=== PATIENT | female | born 1970 | race Caucasian/White ===

== ENCOUNTER 2022-11-10 09:14 | Outpatient (OUT) | payer BC, SELFPAY ==
--- NOTE | 2022-11-10 09:21 | MM_ITS ---
Patient: THERESA JOSHUA Exam Date: 11/10/2022 : 1970 Gender:F Ordering : DR Rod Dee . Admission #: [id number] Family : DR GONSALES MONICA . Order #: [id number] CLICK HERE TO VIEW EXAM RADIOLOGY REPORT PROCEDURE: MM TOMOSYNTHESIS SCREENING BI COMPARISON: MG MAMM SCREEN 3D HIEU CAD, 10/26/2020. MG MAMM SCREEN 3D HIEU CAD, 10/28/2021. INDICATIONS: Screening Calculator Name NCI Breast Cancer Risk Assessment Tool 5 Year Breast Cancer Risk 1.20% Lifetime Breast Cancer Risk 9.60% Personal Breast Cancer No Personal Ovarian Cancer No Treatments None Family Cancers Cousin-maternal with breast cancer at age 50; Grandmother-maternal with ovarian cancer at age ~80. LOCATION: [facility] BREAST COMPOSITION: Scattered areas fibroglandular density. FINDINGS: DIAGNOSTIC CATEGORY 2--BENIGN FINDING. NO CHANGE FROM COMPARISON. Scattered benign-appearing calcifications are present. Scattered benign-appearing lymph nodes are present. RIGHT BREAST: No significant suspicious finding. reniform nodule upper outer quadrant, posterior breast, intramammary lymph node is favored, stable LEFT BREAST: No significant suspicious finding. RECOMMENDATIONS: ROUTINE MAMMOGRAM AND CLINICAL EVALUATION IN 12 MONTHS. PLEASE NOTE: A NORMAL MAMMOGRAM DOES NOT EXCLUDE THE POSSIBILITY OF BREAST CANCER. A CLINICALLY SUSPICIOUS PALPABLE LUMP SHOULD BE BIOPSIED. Dictated by: Chris Reddy MD on 11/10/2022 at 10:48 Approved by: Chris Reddy MD on 11/10/2022 at 10:50
[2022-11-11 08:21] LABS: Basophils Percent Auto 0.6 % (0.2-2.0); Eosinophils Absolute Auto 0.2 10^3/uL (0.0-0.7); Eosinophils Percent Auto 4.9 % (0.9-7.0); Hematocrit 44.2 % (36.0-48.0); Hemoglobin 14.6 g/dL (12.0-16.0); Immature Granulocytes Abs Auto 0.01 10^3/uL (0.00-0.03); Immature Granulocytes Pct Auto 0.2 % (0.0-0.5); Lymphocytes Absolute Auto 1.7 10^3/uL (1.2-3.8); Lymphocytes Percent Auto 34.8 % (20.5-60.0); Mean Corpuscular Hemoglobin 29.3 pg (26.7-34.0); Mean Corpuscular Volume 88.6 fL (81.0-99.0); Mean Platelet Volume 9.8 fL (9.5-13.5); Monocytes Absolute Auto 0.4 10^3/uL (0.3-0.8); Monocytes Percent Auto 8.4 % (1.7-12.0); Neutrophils Absolute Auto 2.5 10^3/uL (1.4-6.5); Neutrophils Percent Auto 51.1 % (43.0-75.0); Platelet Count 274 10^3/uL (150-450); Red Blood Count 4.99 10^6/uL (4.20-5.40); Red Cell Distribution Width 12.9 % (11.0-15.0); White Blood Count 4.9 10^3/uL (4.0-11.0)
[2022-11-11 08:34] LABS: Estimated Average Glucose 123 mg/dL; Glycohemoglobin A1C 5.9 % (4.5-6.2)
[2022-11-11 08:49] LABS: Alanine Aminotransferase 33 U/L (14-59); Albumin Globulin Ratio 1.1; Albumin Level 3.8 g/dL (3.4-5.0); Alkaline Phosphatase 64 U/L (46-116); Anion Gap 12.6; Aspartate Amino Transferase 18 U/L (15-37); BUN Creatinine Ratio 15.9; Bilirubin Total 0.5 mg/dL (0.2-1.0); Chloride 102 mmol/L (98-107); Chol HDL Ratio 5.5; Cholesterol 248 mg/dL (<=200); Estimated GFR (African America >60 (>=60); Estimated GFR (Non-African Ame >60 (>=60); Globulin 3.5 g/dL; Glucose 121 mg/dL (74-106); HDL Cholesterol 45 mg/dL (40-60); Potassium 3.6 mmol/L (3.5-5.1); Sodium 141 mmol/L (136-145); Thyroid Stimulating Hormone 1.225 uIU/mL (0.358-3.740); Total Protein 7.3 g/dL (6.4-8.2); Triglycerides 314 mg/dL (<=150); VLDL CHOLESTEROL 62.8 mg/dL
== END 2022-11-10 09:15 | disposition home or self-care (01) ==
LOC: MAMMO 09:15
PROVIDERS: PCP Family Medicine; Visit Provider Family Medicine
DX: Z00.00 Encounter for general adult medical examination without abnormal findings (principal); Z12.31 Encounter for screening mammogram for malignant neoplasm of breast; Z80.3 Family history of malignant neoplasm of breast; Z80.41 Family history of malignant neoplasm of ovary
CPT/HCPCS: 36415; 77063; 77067; 80053; 80061; 83036; 84443; 85025

== ENCOUNTER 2022-12-23 19:42 | Outpatient (REF) | payer BC, SELFPAY ==
[2022-12-27 10:13] LABS: Age Gdln ACOG Testing Note (.); HPV Aptima Negative (Negative); IGP, Aptima HPV, rfx 16/18,45 Note (.)
== END 2022-12-23 19:43 | disposition home or self-care (01) ==
LOC: LAB 19:42
PROVIDERS: PCP Family Medicine; Visit Provider Obstetrics & Gynecology
DX: Z01.419 Encounter for gynecological examination (general) (routine) without abnormal findings (principal)
CPT/HCPCS: 87624; G0145

== ENCOUNTER 2023-03-11 13:07 | Emergency (ER) | payer BC, SELFPAY ==
[2023-03-11 13:11] VITALS: BP 158/104; PULSE 95; RESP 20; TEMP 36.6; O2SAT 96; BMI 29.8
--- NOTE | 2023-03-11 13:27 | ED.NECK1 ---
HPI - Neck Pain/Injury General Chief Complaint: Neck Pain/Injury Stated Complaint: NECK PAIN Time Seen by Provider: 03/11/23 13:15 Source: patient Mode of arrival: walk-in Limitations: no limitations History of Present Illness HPI Narrative: Patient is a 52-year-old female with a history of chronic neck pain who presents to the emergency department for pain in the left side of the neck radiating into the left shoulder for the last several days. She has a history of degenerative disc disease and arthritis in the neck. She states she has had similar exacerbations in the past and been seen by her PCP who placed her on a steroid. She states she is not able to see him in the office until 1045 tomorrow. She states the pain is causing her to be tearful and is unrelieved at home. She denies any mechanism of injury or trauma. She states she gets occasional tingling to the left arm. Pain is worse with movement of the head to the left Related Data Previous Rx's Medication Instructions Recorded ketorolac 10 mg tablet 10 mg PO TID PRN pain #10 tabs 03/11/23 methocarbamol 750 mg tablet 750 mg PO TID PRN pain #20 tabs 03/11/23 methylprednisolone 4 mg tablets in See Rx Instructions .Route 03/11/23 a dose pack (Medrol (Benedict)) .COMPLEX #21 ea Allergies Allergy/AdvReac Type Severity Reaction Status Date / Time No Known Drug Allergies Allergy Verified 03/11/23 13:16 Review of Systems ROS Constitutional Denies: fever or chills Ears, nose, mouth, and throat Denies: throat pain Cardiovascular Denies: chest pain Respiratory Denies: shortness of breath Gastrointestinal Denies: nausea or vomiting Musculoskeletal Reports: neck pain; Denies: back pain, extremity pain or joint pain Integumentary/Breast Denies: rash Neurological Reports: headache PFSH PFSH Social History Smoking status: Never smoker Exam Narrative Exam Narrative: Gen.: Awake, alert, in no distress Head: Normocephalic, atraumatic ENT: Moist mucous membranes, no posterior bony point tenderness of the cervical spine with diffuse tenderness of the paraspinal muscles of the cervical spine and left trapezius muscle Respiratory: No respiratory distress Extremities: Moves extremities equally, 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 with normal flexion and extension of the left arm Psych: Normal mood and affect Neuro: No focal neuro deficit Skin: Warm, dry, intact Constitutional Vital Signs, click to edit/add: Last Vital Signs Temp 98 F 03/11/23 13:11 Pulse 95 H 03/11/23 13:11 Resp 20 03/11/23 13:11 BP 158/104 H 03/11/23 13:11 Pulse Ox 96 03/11/23 13:11 O2 Del Method Room Air 03/11/23 13:11 Course Vital Signs Vital signs: Vital Signs Temperature 98 F 03/11/23 13:11 Pulse Rate 95 H 03/11/23 13:11 Respiratory Rate 20 03/11/23 13:11 Blood Pressure 158/104 H 03/11/23 13:11 Pulse Oximetry 96 03/11/23 13:11 Oxygen Delivery Method Room Air 03/11/23 13:11 Temperature 98 F 03/11/23 13:11 Pulse Rate 95 H 03/11/23 13:11 Respiratory Rate 20 03/11/23 13:11 Blood Pressure 158/104 H 03/11/23 13:11 Pulse Oximetry 96 03/11/23 13:11 Oxygen Delivery Method Room Air 03/11/23 13:11 MDM - Neck Pain/Injury MDM Narrative Medical decision making narrative: Exam is consistent with cervical strain, acute on chronic neck pain. She has no focal neurodeficits on exam, patient treated for symptoms in the ER and will be discharged home with a steroid taper, NSAIDs and muscle relaxants. Follow-up with PCP and return to the emergency department if symptoms change or worsen. Rest, ice, gentle stretching. Medical Records Attestation: I reviewed the patient's medical records. Discharge Plan Discharge Chief Complaint: Neck Pain/Injury Clinical Impression: Cervical muscle strain Patient Disposition: Home, Self-Care Time of Disposition Decision: 13:25 Condition: Good Prescriptions / Home Meds: New ketorolac 10 mg tablet 10 mg PO TID PRN (Reason: pain) Qty: 10 0RF methocarbamol 750 mg tablet 750 mg PO TID PRN (Reason: pain) Qty: 20 0RF methylprednisolone [Medrol (Benedict)] 4 mg tablets,dose pack See Rx Instructions .ROUTE .COMPLEX Qty: 21 0RF Rx Instructions: Taper as directed Instructions: Cervical Strain (ED), Neck Pain (ED) Stand Alone Forms: Portal Instructions Referrals: Rod Dee MD [Primary Care Provider] - 03/12/23
[2023-03-11] MEDS: ORPHENADRINE 60 MG/ 2 ML VIAL IM (13:32)
[2023-03-11] MEDS: HYDROCODONE/ACET 5-325 MG TABLET 1 TAB PO (13:33)
[2023-03-11] MEDS: KETOROLAC TROMETHAMINE 60 MG/2 ML VIAL IM (13:33)
== END 2023-03-11 13:39 | disposition home or self-care (01) ==
PROVIDERS: Emergency Provider Emergency Medicine; PCP Family Medicine
DX: S16.1XXA Strain of muscle, fascia and tendon at neck level, initial encounter (principal); X58.XXXA Exposure to other specified factors, initial encounter; M50.30 Other cervical disc degeneration, unspecified cervical region; M47.812 Spondylosis without myelopathy or radiculopathy, cervical region; G89.29 Other chronic pain
CPT/HCPCS: 96372; 99284

== ENCOUNTER 2023-03-12 11:38 | Observation (INO) | payer BC, SELFPAY ==
[2023-03-12] VITALS (8 sets, daily range): BP systolic 147–159; BP diastolic 86–93; PULSE 86–91; RESP 16–18; TEMP 36.7–36.9; O2SAT 91–99; BMI 33.5
--- OUTSIDE RECORDS SUMMARY | 2023-03-12 11:50 | XMS_ITS | CCD ---
Author Name Unknown Address [address] [place] [address] Organization [facility] Care Team Providers Care Tobacco Packer Name Role Phone Gabby Dee Primary Care Physician Morris CAGLE Attending Unavailable JEFF, Morris Valles Attending Unavailable Diamond Case Unavailable MD Diamond Case Attending Provider Diamond Case Admitting Unavailable Diamond Case Attending Unavailable SYLWIA ., DR PIERRE Primary Care Unavailable HOY ., DR PIERRE Consulting Unavailable MISC, DR BATISTA Attending Unavailable MISC, DR BATISTA Admitting Unavailable NILL ., DR ARECHIGA Admitting Unavailable NILL ., DR ARECHIGA Consulting Unavailable HOY ., DR PIERRE Primary Care Unavailable NILL ., DR ARECHIGA Attending Unavailable TOMASA LANDAVERDE Consulting Unavailable CHRISTINA II, SASHA Consulting Unavailable HOY ., DR PIERRE Attending Unavailable HOY ., DR PIERRE Primary Care Unavailable HOY ., DR PIERRE Admitting Unavailable HOY ., DR PIERRE Attending Unavailable HOY ., DR PIERRE Primary Care Unavailable HOY ., DR PIERRE Admitting Unavailable HOY ., DR PIERRE Consulting Unavailable ZIEBER, DR KAN Valles Consulting Unavailable LEEANNE BRADLEY Consulting Unavailable LEEANNE BRADLEY Attending Unavailable SYLWIA ., DR PIERRE Primary Care Unavailable LEEANNE BRADLEY Admitting Unavailable KIRKLEEANNE RIGGINS Admitting Unavailable KIRKLEEANNE RIGGINS Consulting Unavailable LEEANNE BRADLEY Attending Unavailable MONICA ., DR GONSALES Primary Care Unavailable HOY ., DR PIERRE Attending Unavailable HOY ., DR PIERRE Primary Care Unavailable HOY ., DR PIERRE Consulting Unavailable HOY ., DR PIERRE Admitting Unavailable CALDWELL, DR AL Shaikh Consulting Unavailable HOY ., DR PIERRE Attending Unavailable HOY ., DR PIERRE Primary Care Unavailable HOY ., DR PIERRE Consulting Unavailable HOY ., DR PIERRE Admitting Unavailable HOY ., DR PIERRE Attending Unavailable HOY ., DR PIERRE Admitting Unavailable HOY ., DR PIERRE Primary Care Unavailable HOY ., DR PIERRE Consulting Unavailable HOY ., DR PIERRE Attending Unavailable HOY ., DR PIERRE Admitting Unavailable HOY ., DR PIERRE Primary Care Unavailable HOY ., DR PIERRE Consulting Unavailable CALDWELL, DR AL Shaikh Consulting Unavailable HOY ., DR PIERRE Admitting Unavailable HOY ., DR PIERRE Attending Unavailable HOY ., DR PIERRE Primary Care Unavailable Allergies Allergy Classification Reported Allergen(s) Allergy Type Date of Onset Reaction(s) Facility (1 source) No Known Medication Allergies; Translations: [No Known Medication Allergies] Propensity to adverse reactions (disorder) [facility] Repository (2 sources) Baclofen Drug Allergy [facility] Repository Medications Current Medications Medication Drug Class(es) Dates Sig (Normalized) Sig (Original) 24 hr desvenlafaxine succinate 25 mg extended release oral tablet (1 source) Serotonin and Norepinephrine Reuptake Inhibitor Start: 02-21-2021 take 1 tablet by mouth once daily desvenlafaxine 25 mg oral tablet, extended release 25 mg = 1 tab(s), Oral, Daily, Refills(s) 0 Start Date: 02/21/21 Status: Ordered diclofenac sodium 75 mg delayed release oral tablet (6 sources) Nonsteroidal Anti-inflammatory Drug take 1 tablet by mouth every twelve hours Diclofenac Sodium 75 MG 1 tablet as needed Orally Twice a day Active simvastatin 20 mg oral tablet (7 sources) HMG-CoA Reductase Inhibitor Start: 04-08-2022 take 1 tablet by mouth once daily at bedtime simvastatin 20 mg Tab 20 mg = 1 tab(s), Oral, Once a day (at bedtime), Refills(s) 0 Start Date: 04/08/22 Status: Ordered Completed/Discontinued Medications Medication Drug Class(es) Dates Sig (Normalized) Sig (Original) triamcinolone acetonide 40 mg/ml injectable suspension (20 sources) Corticosteroid Start: 05-06-2022 Kenalog-40 20 Dec, 2022 20 mg Problems Active Problems Problem Classification Problem Date Documented Da te Episodic/Chronic Anal and rectal conditions (1 source) Rectal polyp; Translations: [RECTAL POLYP] Onset: 05-26-2022 Episodic Anxiety disorders (1 source) Anxiety 02-21-2021 Chronic Disorders of lipid metabolism (2 sources) Pure hypercholesterolemia; Translations: [Pure hypercholesterolemia, unspecified] Onset: 05-26-2022 02-21-2021 Chronic Diverticulosis and diverticulitis (1 source) Diverticulosis of large intestine without perforation or abscess without bleeding; Translations: [DVRTCLOS LG INT NO PERF/ABSC W/O BL] Onset: 05-26-2022 Chronic Gastrointestinal hemorrhage (2 sources) Hematochezia; Translations: [Rectal hemorrhage] 02-26-2021 Episodic Headache; including migraine (1 source) Tension-type headache 02-21-2021 Chronic Osteoarthritis (20 sources) Arthritis of first carpometacarpal joint of right hand; Translations: [Unilateral primary osteoarthritis of first carpometacarpal joint, right hand] Onset: 05-14-2022 Chronic Other and unspecified benign neoplasm (1 source) Benign neoplasm of colon; Translations: [Benign neoplasm of colon, unspecified] Onset: 04-08-2022 Episodic Other and unspecified benign neoplasm (1 source) Adenomatous polyp of colon 04-10-2021 Episodic Other and unspecified benign neoplasm (4 sources) Personal history of colonic polyps; Translations: [PERSONAL HISTORY OF COLONIC POLYPS] Onset: 05-07-2022 Episodic Other connective tissue disease (6 sources) Trigger finger, right middle finger Episodic Other connective tissue disease (4 sources) Pain in right hand Episodic Other connective tissue disease (4 sources) Pain in right foot; Translations: [PAIN IN RIGHT FOOT] Onset: 05-16-2022 Episodic Other connective tissue disease (5 sources) Pain in left hand Episodic Other connective tissue disease (1 source) Lateral epicondylitis, right elbow Episodic Other nutritional; endocrine; and metabolic disorders (1 source) Body mass index 30+ - obesity 04-08-2022 Chronic Other upper respiratory disease (1 source) Seasonal allergic rhinitis 02-21-2021 Chronic Spondylosis; intervertebral disc disorders; other back problems (1 source) Lumbar radiculopathy 02-21-2021 Episodic Unclassified (1 source) Pain in left hand; Translations: [Pain in left hand] Onset: 06-03-2022 Unclassified (4 sources) CONTACT W/AND (SUSP) EXPOS COVID-19; Translations: [CONTACT W/AND (SUSP) EXPOS COVID-19] Onset: 10-17-2021 Viral infection (1 source) COVID-19; Translations: [COVID-19] Onset: 10-08-2021 Past or Other Problems Problem Classification Problem Date Documented Date Episodic/Chronic Acute bronchitis (4 sources) Acute bronchiolitis, unspecified; Translations: [ACUTE BRONCHIOLITIS UNSPECIFIED] Onset: 02-26-2022 Episodic Other connective tissue disease (5 sources) Impingement syndrome of left shoulder; Translations: [IMPINGEMENT SYNDROME LEFT SHOULDER] Onset: 12-07-2021 Episodic Other connective tissue disease (1 source) Abnormal posture; Translations: [ABNORMAL POSTURE] Onset: 01-02-2022 Episodic Other non-traumatic joint disorders (4 sources) Pain in left shoulder; Translations: [PAIN IN LEFT SHOULDER] Onset: 01-01-2022 Episodic Other screening for suspected conditions (not mental disorders or infectious disease) (5 sources) Stool DNA-based colorectal cancer screening positive; Translations: [Encounter for screening mammogram for malignant neoplasm of breast] Onset: 10-28-2021 02-21-2021 Episodic Residual codes; unclassified (1 source) Family history of malignant neoplasm of breast; Translations: [FAMILY HX MALIG NEOPLASM OF BREAST] Onset: 10-29-2021 Episodic Residual codes; unclassified (1 source) Family history of malignant neoplasm of ovary; Translations: [FAM HX MALIGNANT NEOPLASM OVARY] Onset: 10-29-2021 Episodic Sprains and strains (1 source) Strain of muscle, fascia and tendon at neck level, initial encounter; Translations: [STRN MUSC FASC TENDON NECK LEVL INT] Onset: 12-11-2021 Episodic Unclassified (1 source) CONTACT W/AND (SUSP) EXPOS COVID-19; Translations: [CONTACT W/AND (SUSP) EXPOS COVID-19] Onset: 10-12-2021 Results Test Name Value Interpretation Reference Range Facility XR hand LT min 3V*on 023 XR hand LT min 3V* [facility] Main [address] [address] XRay Report Signed Patient: Theresa Reyes MR#: [id number] : 1970 Acct:[id number] Age/Sex: 52 / F ADM Date: 06/03/22 Loc: [facility] [place] Room: Type: [facility] Attending Dr: Diamond Case MD Copies to: Diamond Case MD Ordering Provider: Diamond Case MD Date of Service: 06/03/22 XR/XR hand LT min 3V*: PAIN XR hand LT min 3V* 06/03/2022 8:44 AM SIGNS AND SYMPTOMS: Left thumb/first metacarpal pain PROTOCOL: Frontal, lateral, and oblique radiographs of the left hand: COMPARISON: None FINDINGS: The bones are in anatomic alignment. There is mild degenerative change at the first carpometacarpal junction. There is preservation of the joint spaces, otherwise. There is no fracture or dislocation. No significant soft tissue swelling. XR/XR hand LT min 3V* IMPRESSION: No acute bony injury. Mild degenerative facet noted at the base of the thumb. Impression dictated by: Miguel Ramey M.D.06/03/2022 1:11 PM Dictation Location: [place] [address] Transcribed By: [facility] 06/03/22 1311 Dictated By: Miguel Ramey II, MD 06/03/22 1310 Signed By: 06/03/22 1311 Normal [facility] XR hand LT min 3V* [facility] [employer] Other XR hand LT min 3V* [facility] [employer] Other XR hand LT min 3V* [address] [place] [address] [employer] Other XR hand LT min 3V* [place] [address] [facility] [employer] Other XR hand LT min 3V* XRay Report [employer] Other XR hand LT min 3V* Signed [employer] Other XR hand LT min 3V* Patient: Theresa Reyes MR#: [id number] [employer] Other XR hand LT min 3V* [id number] [employer] Other XR hand LT min 3V* : 1970 Acct:[id number] [employer] Other XR hand LT min 3V* Age/Sex: 52 / F ADM Date: 06/03/22 [employer] Other XR hand LT min 3V* Loc: [facility] Room: Type : [facility] [employer] Other XR hand LT min 3V* Attending Dr: Benny Case MD [employer] Other XR hand LT min 3V* Copies to: Diamond Case MD [employer] Other XR hand LT min 3V* Ordering Provider: Diamond Case MD [employer] Other XR hand LT min 3V* Date of Service: 06/03/22 [employer] Other XR hand LT min 3V* XR/XR hand LT min 3V*: PAIN [employer] Other XR hand LT min 3V* XR hand LT min 3V* 06/03/2022 8:44 AM [employer] Other XR hand LT min 3V* SIGNS AND SYMPTOMS: Left thumb/first metacarpal pain [employer] Other XR hand LT min 3V* PROTOCOL: Frontal, lateral, and oblique radiographs of the left hand: [employer] Other XR hand LT min 3V* COMPARISON: None [employer] Other XR hand LT min 3V* FINDINGS: [employer] Other XR hand LT min 3V* The bones are in anatomic alignment. There is mild degenerative change at the first carpometacarpal [employer] Other XR hand LT min 3V* junction. There is preservation of the joint spaces, otherwise. There is no fracture or dislocation. [employer] Other XR hand LT min 3V* No significant soft tissue swelling. [employer] Other XR hand LT min 3V* XR/XR hand LT min 3V* [employer] Other XR hand LT min 3V* IMPRESSION: [employer] Other XR hand LT min 3V* No acute bony injury. [employer] Other XR hand LT min 3V* Mild degenerative fa cet noted at the base of the thumb. [employer] Other XR hand LT min 3V* Impression dictated by: Miguel Ramey M.D.06/03/2022 1:11 PM [employer] Other XR hand LT min 3V* Dictation Location: [place] [address] [employer] Other XR hand LT min 3V* Transcribed By: KARRIE 06/03/22 [facility] [employer] Other XR hand LT min 3V* Dictated By: Miguel Ramey II, MD 06/03/22 [facility] [employer] Other XR hand LT min 3V* Signed By: [employer] Other XR hand LT min 3V* 06/03/[address] [place] [address] [employer] Other [employer] 05-15-2022 Reminders - From: Jessica Mims LPN To: WILMARN - Clinical; Sent: 05/15/2022 07:57:39 EST Show up: 04/06/2025 07:00:00 EST Subject: colonoscopy recall Due Date/Time: 05/07/2025 07:00:00 EST Reminder/Recall Patient is due for colonoscopy 05/07/2025 due to history of tubulovillous adenoma. Normal [facility] Pathology Noteon 05-09-2022 Pathology Note [id number]#1.00CD :127 Normal [facility] Outside Colonoscopyon 2022 Outside Colonoscopy [id number]#1.00C D:127 Normal [facility] PREG HCG QUALon 05-07-2022 , QUAL Negative Normal NEGATIVE [facility] Comment on above: Performed By: #### P REG #### [facility] [address] [place] [address] Dr. Hu Can Pre-Certification Formon Pre-Certification Form [id number] CD:127 Normal [facility] Consent for Procedure/Surger yon 04-10-2022 Consent for Procedure/Surgery [id number] D:127 Normal [facility] Facesheeton 04-10-2022 Facesheet [id number] D:127 Normal [facility] General Surgery Office/Clini c Noteon 04-08-2022 General Surgery Office/Clinic Note Chief Complaint colonoscopy recall HPI Staff 51 year old female presents on consultation for colonoscopy recall. Last colonoscopy completed 03/2021 with tubulovillous adenoma of sigmoid colon. Denies abdominal or rectal pain. No rectal bleeding or change in bowel habits. Denies nausea or vomiting. No unexplained weight loss. History of Present Illness 51 yo female for surveillance colonoscopy, s/p colonoscopy 1 year ago due to positive Cologuard, found to have 2.5 cm tubulovillous adenoma in sigmoid colon; doing well, denies change in bms or blood in stools, no abd complaints; no previous abdominal operations; no asa or NSAID use, no SBE prophylaxis, no fmhx of GI maligancy or IBD. no tobacco use. Review of Systems PHQ Score Initial Depression Screen Score: 0 ROS - Provider Constitutional: no fever, no sweats, no weight loss. Eyes: no glasses, no blurred vision, no visual loss. ENMT: no dentures, no hoarseness, no swallowing difficulties, no hearing loss, no ear infection(s), no nose bleeds. Cardiovascular: normal blood pressure, no chest pain, regular heartbeat, no heart murmur. Respiratory: no shortness of breath, no cough, no asthma, no wheezing. Gastrointestinal: no nausea, no vomiting, no diarrhea, no constipation, no blood in stool, no change in bowel habits, no abdominal pain, no hepatitis. Genitourinary: no kidney stones, no urine infection, no dysuria. Musculoskeletal: no pain, no weakness. Skin: no changing moles, no rash, no skin lumps. Neurologic: no seizures, no epilepsy, no headache. Psychiatric: no emotional or psychiatric problem. Heme/Lymph: no bleeding problems, no anemia, no blood clots, no transfusions. Allergy/Immunologic: no swollen lymph nodes/glands, no IV drug abuse. Other: Additional ROS info: Except as noted in the above Review of Systems and in the History of Present Illness, all other systems have been reviewed and are negative or noncontributory. Physical Exam Vitals & Measurements HR: 72(Peripheral) RR: 16 BP: 128/88 HT: 67 in HT: 170.2 cm WT: 89 kg WT: 195.8 lb BMI: 30.72 HEENT: normal conjunctiva, sclera clear, no scleral icterus, EOM intact, PERRLA, oral mucosa moist without lesions. Neck: trachea midline, no mass, symmetric, no thyromegaly or nodules, no adenopathy Respiratory: lungs CTA, respirations non labored. Cardiovascular: regular rate and rhythm, no murmur, no pedal edema or varicosities. Gastrointestinal: soft, non distended, no tenderness, no masses, no palpable hernias, diastasis recti no, no hepatosplenomegaly; normal bs Lymphatic: no cervical adenopathy, no supraclavicular adenopathy Musculoskeletal: normal gait, digits and nails without infection, nodes, cyanosis, clubbing. Skin: no rashes, no lesions, no ulcers, no subcutaneous nodules, induration. Psychiatric/Neuro: oriented to time, place, person, judgement normal, affect appropriate for age, insight intact, no focal deficits. Tests: review of old records completed, Discussed surgical options, risks, and possible complications with patient. Assessment/Plan 1. Tubulovillous adenoma of colon (D12.6: Benign neoplasm of colon, unspecified) plan surveillance colonoscopy under anesthesia, informed consent obtained. Follow-up No qualifying data available Problem List/Past Medical History Ongoing Anxiety BMI 30.0-30.9,adult Hematochezia Lumbar radiculopathy Positive colorectal cancer screening using Cologuard test Pure hypercholesterolemia Rectal bleeding Seasonal allergic rhinitis Tension headache Tubulovillous adenoma of colon Historical No qualifying data Procedure/Surgical History Colonoscopy (03/27/2021), Blocked tear duct, Ganglion cyst of right foot, Plantar fasciotomy. Medications desvenlafaxine 25 mg oral tablet, extended release, 25 mg= 1 tab(s), Oral, Daily simvastatin 20 mg Tab, 20 mg= 1 tab(s), Oral, Once a day (at bedtime) Allergies No Known Allergies No Known Medication Allergies Social History Alcohol - Denies Alcohol Use, 02/26/2021 Substance Abuse - Denies Substance Abuse, 02/26/2021 Tobacco Never (less than 100 in lifetime) Tobacco Use:. Never Smokeless Tobacco Use:., 04/08/2022 Family History Hyperlipidemia: Mother and Father. Hypothyroidism: Mother and Brother. Immunizations Vaccine Date Status influenza virus vaccine, inactivated 12/2021 Recorded SARS-CoV-2 (COVID-19) Ad26 vaccine 04/30/2020 Recorded SARS-CoV-2 (COVID-19) Ad26 vaccine 04/02/2020 Recorded Normal [facility] Comment on above: Result Comment: Elec tronically Signed By: JEFF PONCE, Morris Nelson\Date and Time Signed: 04/08/22 15:33 EST Covid-19 PCR (CVDTB)on 02-13 SARS-CoV-2 (COVID-19) RNA CLARISSA+probe Ql (Unsp spec) Not detected Normal NOT DETECTED [facility] Comment on above: Result Comment: When diagnostic testing is negative, the possibility of a false negative should be considered in the context of a patient's recent exposures and the presence of clinical signs and symptoms consistent with SARS-CoV-2. This test is not yet approved or cleared by the [place] FDA. When there are no FDA-approved or cleared tests available, and other criteria are met, FDA can make tests available under an emergency access mechanism called an Emergency Use Authorization (EUA). The EUA for this test is supported by the [place] of Health and Human Service's declaration that circumstances exist to justify the emergency use of in vitro diagnostics for the detection and/or diagnosis of the virus that causes COVID-19. This EUA will remain in effect for the duration of the COVID-19 declaration justifying emergency of IVDs, unless it is terminated or revoked by the FDA (after which the test may no longer be used). Performed By: #### C VDTB #### [facility] [address] [place] [address] Dr. Hu Can INFLUENZA A AND B [facility] 02-26 [facility] SEE BELOW Normal [facility] Comment on above: Result Comment: Nega tive for Flu A protein angiten. Infection due to Flu A cannot be ruled out. Flu A angiten in the sample may be below the detection limit of the test. Performed By: #### I NFLUAB #### [facility] [address] [place] [address] Dr. [facility] Normal [facility] Comment on above: Result Comment: Nega tive for Flu B protein antigen. Infection due to Flu B cannot be ruled out. Flu B antigen in the sample may be below the detection limit of the test. Performed By: #### I NFLUAB #### [facility] [address] [place] [address] Dr. Hu Can INFLUENZA A AG Negative Normal NEGATIVE SEE COMMENT [facility] Comment on above: Performed By: #### I NFLUAB #### [facility] [address] [place] [address] Dr. Hu Can INFLUENZA B AG Negative Normal NEGATIVE SEE COMMENT [facility] Comment on above: Performed By: #### I NFLUAB #### [facility] [address] [place] [address] Dr. Hu Can INTERNAL CONTROLS Within Normal Limits Normal Wi thin Normal Limits [facility] Comment on above: Performed By: #### I NFLUAB #### [facility] [address] [place] [address] Dr. Hu Can CBC AUTO DIFFon 12-13-2021 BASO # 0.0 103/ul Normal 0.0-0.1 [facility] Comment on above: Performed By: #### C BC #### [facility] [address] [place] [address] Dr. Hu Can Basophils/100 WBC (Bld) 0.3 % Normal 0.2-2.0 [facility] Comment on above: Performed By: #### C BC #### [facility] [address] [place] [address] Dr. Hu Can EO # 0.1 103/ul Normal 0.0-0.7 [facility] Comment on above: Performed By: #### C BC #### [facility] [address] [place] [address] Dr. Hu Can Eosinophils/100 WBC (Bld) 1.1 % Normal 0.9-7.0 [facility] Comment on above: Performed By: #### C BC #### [facility] [address] [place] [address] Dr. Hu Can Erythrocyte distribution width (RBC) [Ratio] 13.7 % Normal 11.0-15.0 [facility] Comment on above: Performed By: #### C BC #### [facility] [address] [place] [address] Dr. Hu Can Hematocrit (Bld) [Volume fraction] 44.6 % Normal 36.0-48.0 [facility] Comment on above: Performed By: #### C BC #### [facility] [address] [place] [address] Dr. Hu Can Hemoglobin (Bld) [Mass/Vol] 14.5 g/dL Normal 12.0-16.0 [facility] Comment on above: Performed By: #### C BC #### [facility] [address] [place] [address] Dr. Hu Can IG # 0.02 10e3/ul Normal 0.00-0.03 [facility] Comment on above: Performed By: #### C BC #### [facility] [address] [place] [address] Dr. Hu Can IG % 0.3 % Normal 0.0-0.5 [facility] Comment on above: Performed By: #### C BC #### [facility] [address] [place] [address] Dr. Hu Can LYMPH # 2.3 103/ul Normal 1.2-3.8 [facility] Comment on above: Performed By: #### C BC #### [facility] [address] [place] [address] Dr. uH Can Lymphocytes/100 WBC (Bld) 30.5 % Normal 20.5-60.0 [facility] Comment on above: Performed By: #### C BC #### [facility] [address] [place] [address] Dr. Hu Can MANUAL DIFF REQ NO Normal [facility] Comment on above: Performed By: #### C BC #### [facility] [address] [place] [address] Dr. Hu Can MCH (RBC) [Entitic mass] 29.1 pg Normal 26.7-34.0 [facility] Comment on above: Performed By: #### C BC #### [facility] [address] [place] [address] Dr. Hu Can MCHC (RBC) [Mass/Vol] 32.5 g/dL Normal 29.9-35.2 [facility] Comment on above: Performed By: #### C BC #### [facility] [address] [place] [address] Dr. Hu Can MCV (RBC) [Entitic vol] 89.6 fL Normal 81.0-99.0 [facility] Comment on above: Performed By: #### C BC #### [facility] [address] [place] [address] Dr. Hu Can MONO # 0.5 103/ul Normal 0.3-0.8 [facility] [facility] Comment on above: Performed By: #### C BC #### [facility] [address] [place] [address] Dr. Hu Can Monocytes/100 WBC (Bld) 6.8 % Normal 1.7-12.0 [facility] Comment on above: Performed By: #### C BC #### [facility] [address] [address] [address] Hu Can NEUT # 4.6 103/ul Normal 1.4-6.5 [facility] Comment on above: Performed By: #### C BC #### [facility] [address] [address] [address] Hu Can Neutrophils/100 WBC (Bld) 61.0 % Normal 43.0-75.0 [facility] Comment on above: Performed By: #### C BC #### [facility] [address] [address] [address] Hu Can Platelet mean volume (Bld) [Entitic vol] 9.3 fL Critically low 9.5-13.5 [facility] Comment on above: Performed By: #### C BC #### [facility] [address] [place] [address] Dr. Hu Can PLT 296 103/ul Normal 150-450 [facility] Comment on above: Performed By: #### C BC #### [facility] [address] [address] [address] Hu Can RBC 4.98 106/ul Normal 4.20-5.40 [facility] Comment on above: Performed By: #### C BC #### [facility] [address] [place] [address] Dr. Hu Can WBC 7.5 103/ul Normal 4.0-11.0 [facility] Comment on above: Performed By: #### C BC #### [facility] [address] [place] [address] Dr. Hu Can GLYCOHEMOGLOBIN A1Con 2021 ADA RECOMMENDATION SEE BELOW Normal [facility] Comment on above: Result Comment: ADA RECOMMENDED LIMIT 4.0 - 6.0 ADA THERAPEUTIC TARGET < 7.0 ACTION SUGGESTED > 7.0 Performed By: #### A 1C #### [facility] [address] [place] [address] Dr. Hu Can Glucose [Mass/Vol] 114 mg/dL Normal [facility] Comment on above: Performed By: #### A 1C #### [facility] [address] [place], [place] [address] Dr. Hu Can HbA1c (Bld) [Mass fraction] 5.6 % Normal 4.5-6.2 [facility] Comment on above: Performed By: #### A 1C #### [facility] [address] [place], [place] [address] Dr. Hu Can LIPID PROFILEon 12-13-2021 CHOL-HDL RATIO NORM SEE BELOW Normal [facility] Comment on above: Result Comment: 3.3 - 4.4 LOW RISK 4.4 - 7.1 AVERAGE RISK 7.1 - 11.0 MODERATE RISK >11.0 HIGH RISK Performed By: #### T ABDI, CMP, LIPID ####[facility] [address] [id number]. Hu Can Cholesterol [Mass/Vol] 279 mg/dL Critically high <=200 [facility] Comment on above: Performed By: #### T ABDI, CMP, LIPID ####[facility] [address] [id number]. Hu Can Cholesterol in HDL [Mass/Vol] 50 mg/dL Normal 40-60 [facility] Comment on above: Performed By: #### T ABDI, CMP, LIPID ####[facility] [address] [place], [place] [address]Na. Hu Can Cholesterol in LDL [Mass/Vol] 197.8 mg/dL Normal [facility] Comment on above: Performed By: #### T ABDI, CMP, LIPID ####[facility] [address] [place], [place] [address]Xg. Hu Can Cholesterol.total/ Cholesterol in HDL [Mass ratio] 5.6 {ratio} Normal [facility] Comment on above: Performed By: #### T ABDI, CMP, LIPID ####[facility] [address] [place], [place] [address]Of. Hu Can HDL NORMAL > or = 60 mg/dl - LO W CARDIOVASCULAR RISK <40 mg/dl - HIGH CARDIOVASCULAR RISK Normal [facility] Comment on above: Performed By: #### T SH, CMP, LIPID ####[facility] [address] [address]Dr. Hu Can LDL CALC NORMAL SEE BELOW Normal [facility] Comment on above: Result Comment: <100 mg/dl OPTIMAL 100 - 129 mg/dl NEAR OR ABOVE OPTIMAL 130 - 159 mg/dl BORDERLINE HIGH 160 - 189 mg/dl HIGH >190 mg/dl VERY HIGH Performed By: #### T SH, CMP, LIPID ####[facility] [address] [address]Dr. Hu Can Triglyceride [Mass/Vol] 156 mg/dL Critically high <=150 [facility] Comment on above: Performed By: #### T ABDI, CMP, LIPID ####[facility] [address] [address]Dr. Hu Can VLDL CALC 31.2 mg/dL Normal [facility] Comment on above: Performed By: #### T ABDI, CMP, LIPID ####[facility] [address] [address]Dr. Hu Can PROF 14(COMP METB)on 022 Albumin [Mass/Vol] 3.8 g/dL Normal 3.4-5.0 [facility] Comment on above: Performed By: #### T ABDI, CMP, LIPID ####[facility] [address] [address]Dr. Hu Can Albumin/Globulin [Mass ratio] 1.2 {ratio} Normal [facility] Comment on above: Performed By: #### T SH, CMP, LIPID ####[facility] [address] [address]Dr. Hu Can ALP [Catalytic activity/Vol] 74 U/L Normal 46-116 [facility] Comment on above: Performed By: #### T SH, CMP, LIPID ####[facility] [address] [address]Dr. Hu Can ALT [Catalytic activity/Vol] 19 U/L Normal 14-59 [facility] Comment on above: Performed By: #### T SH, CMP, LIPID ####[facility] [address] [address]Dr. Hu Can Anion gap [Moles/Vol] 11.0 mmol/L Normal [facility] Comment on above: Performed By: #### T SH, CMP, LIPID ####[facility] [address] [address]Dr. Hu Can AST [Catalytic activity/Vol] 12 U/L Critically low 15-37 [facility] Comment on above: Performed By: #### T SH, CMP, LIPID ####[facility] [address] [address]Dr. Hu Can Bilirubin [Mass/Vol] 0.7 mg/dL Normal 0.2-1.0 [facility] Comment on above: Performed By: #### T SH, CMP, LIPID ####[facility] [address] [address]Dr. Hu Can Calcium [Mass/Vol] 8.7 mg/dL Normal 8.5-10.1 [facility] Comment on above: Performed By: #### T SH, CMP, LIPID ####[facility] [address] [address]Dr. Hu Can Chloride [Moles/Vol] 102 mmol/L Normal 98-107 [facility] Comment on above: Performed By: #### T SH, CMP, LIPID ####[facility] [address] [address]Dr. Hu Can CO2 [Moles/Vol] 28.2 mmol/L Normal 21.0-32.0 [facility] Comment on above: Performed By: #### T SH, CMP, LIPID ####[facility] [address] [address]Dr. Hu Can Creatinine [Mass/Vol] 0.91 mg/dL Normal 0.55-1.02 [facility] Comment on above: Performed By: #### T SH, CMP, LIPID ####[facility] [address] [address]Dr. Hu Can EGFR-AF SWISS >60 Normal >=60 [facility] Comment on above: Performed By: #### T SH, CMP, LIPID ####[facility] [address] [address]Dr. Ellikaila Can EGFR-NON AF SWISS >60 Normal >=60 [facility] Comment on above: Performed By: #### T SH, CMP, LIPID ####[facility] [address] [address]Dr. Hu Can Globulin (S) [Mass/Vol] 3.3 g/dL Normal [facility] Comment on above: Performed By: #### T SH, CMP, LIPID ####[facility] [address] [address]Dr. Hu Can Glucose [Mass/Vol] 105 mg/dL Normal 74-106 [facility] Comment on above: Performed By: #### T SH, CMP, LIPID ####[facility] [address] [address]Dr. Hu Can Potassium [Moles/Vol] 4.2 mmol/L Normal 3.5-5.1 [facility] Comment on above: Performed By: #### T SH, CMP, LIPID ####[facility] [address] [address]Dr. Hu Can Protein [Mass/Vol] 7.1 g/dL Normal 6.4-8.2 [facility] Comment on above: Performed By: #### T SH, CMP, LIPID ####[facility] [address] [address]Dr. Ellikaila Can Sodium [Moles/Vol] 137 mmol/L Normal 136-145 [facility] Comment on above: Performed By: #### T SH, CMP, LIPID ####[facility] [address] [address]Dr. Hu Can Urea nitrogen [Mass/Vol] 23.0 mg/dL Critically high 7.0-18.0 [facility] Comment on above: Performed By: #### T SH, CMP, LIPID ####[facility] [address] [address]Dr. Hu Can Urea nitrogen/Creatinin e [Mass ratio] 25.3 mg/mg Normal [facility] Comment on above: Performed By: #### T ABDI, CMP, LIPID ####[facility] [address] [place], [place] [address]Mu. Hu Can TSHon 12-13-2021 TSH 1.249 uIU/mL Normal 0.358-3.740 [facility] Comment on above: Performed By: #### T ABDI, CMP, LIPID ####[facility] [address] [place], [place] [address]Rq. Hu Can XR CSPINE MIN 4 VIEWSon 11-15 XR CSPINE MIN 4 VIEWS EXAMINATION: XR CSPINE MIN 4 VIEWS HISTORY: Impingement syndrome of shoulder region COMPARISON: No relevant comparison available. FINDINGS: BONES: Loss of normal cervical lordosis. No acute fracture or spondylolisthesis. Moderate degenerative spondylosis and facet osteoarthropathy DISC SPACES: Moderate disc space narrowing with endplate sclerosis PARASPINOUS: Negative. No paraspinous abnormality is seen. OTHER: Negative. IMPRESSION: Moderate degenerative changes with loss of cervical lordosis Electronically authenticated by: AL CAMPOS Date: 2021-12-07 19:38 Normal [facility] MG MAMM SCREEN 3D HIEU CADon 10-28-2021 MG MAMM SCREEN 3D HIEU CAD Patient: THERESA REYES Exam Date: 10/28/2021 : 1970 Gender:F Ordering : DR GABBY DEE . Admission #: [id number] Family : Order #: [id number] CLICK HERE TO VIEW EXAM RADIOLOGY REPORT PROCEDURE: MAMMOGRAM SCREENING 3D BILATERAL CAD COMPARISON: MG MAMM SCREEN 3D HIEU CAD, 10/26/2020. MG MAMM SCREEN HIEU W CAD, 01/07/2019. INDICATIONS: Screening mammography Calculator Name NCI Breast Cancer Risk Assessment Tool 5 Year Breast Cancer Risk 1.10% Lifetime Breast Cancer Risk 9.70% Personal Breast Cancer No Personal Ovarian Cancer No Treatments None Family Cancers Cousin-maternal with breast cancer at age 50; Grandmother-maternal with ovarian cancer at age 80. LOCATION: [facility] BREAST COMPOSITION: Scattered areas fibroglandular density. FINDINGS: DIAGNOSTIC CATEGORY 2--BENIGN FINDING: RIGHT BREAST: No significant suspicious finding. Stable, chronic benign appearing lymph node within posterior upper-outer quadrant. No significant change has occurred. LEFT BREAST: No significant suspicious finding. No significant change has occurred. RECOMMENDATIONS: ROUTINE MAMMOGRAM AND CLINICAL EVALUATION IN 12 MONTHS. PLEASE NOTE: A NORMAL MAMMOGRAM DOES NOT EXCLUDE THE POSSIBILITY OF BREAST CANCER. A CLINICALLY SUSPICIOUS PALPABLE LUMP SHOULD BE BIOPSIED. Dictated by: Kan Salas M.D. on 10/28/2021 at 11:59 Approved by: Kan Salas M.D. on 10/28/2021 at 12:02 Normal [facility] Covid-19 PCR (CVDTB)on 09-15 SARS-CoV-2 (COVID-19) RNA CLARISSA+probe Ql (Unsp spec) Not detected Normal NOT DETECTED [facility] Comment on above: Result Comment: When diagnostic testing is negative, the possibility of a false negative should be considered in the context of a patient's recent exposures and the presence of clinical signs and symptoms consistent with SARS-CoV-2. This test is not yet approved or cleared by the [place] FDA. When there are no FDA-approved or cleared tests available, and other criteria are met, FDA can make tests available under an emergency access mechanism called an Emergency Use Authorization (EUA). The EUA for this test is supported by the [place] of Health and Human Service's declaration that circumstances exist to justify the emergency use of in vitro diagnostics for the detection and/or diagnosis of the virus that causes COVID-19. This EUA will remain in effect for the duration of the COVID-19 declaration justifying emergency of IVDs, unless it is terminated or revoked by the FDA (after which the test may no longer be used). Performed By: #### C VDTB #### [facility] [address] [place] [address] Dr. Hu Can Covid-19 PCR (CVDTB)on 09-14 SARS-CoV-2 (COVID-19) RNA CLARISSA+probe Ql (Unsp spec) Detected Critically abnormal NOT DETECTED [facility] Comment on above: Result Comment: This test is not yet approved or cleared by the [place] FDA. When there are no FDA-approved or cleared tests available, and other criteria are met, FDA can make tests available under an emergency access mechanism called an Emergency Use Authorization (EUA). The EUA for this test is supported by the [place] of Health and Human Service's declaration that circumstances exist to justify the emergency use of in vitro diagnostics for the detection and/or diagnosis of the virus that causes COVID-19. This EUA will remain in effect for the duration of the COVID-19 declaration justifying emergency of IVDs, unless it is terminated or revoked by the FDA (after which the test may no longer be used). Performed By: #### C [facility] ####[facility] [address] [place], [place] [address]On. Hu Can Pathology Noteon 07-12-2021 Pathology Note [id number] D:127 Normal [facility] Vital Signs Date Time Vital Sign Value Performing Clinician Facility 09-02-2022 09:30-0400 Body height 170.18 cm [facility] [employer] Other [employer] Other 09-02-2022 09:30-0400 Body mass index (BMI) [Ratio] 30.85 kg/m2 [facility] [employer] [facility] Other [employer] Other 09-02-2022 09:30-0400 Body weight 89.36 kg [facility] [employer] Other [employer] Other 04-08-2022 15:14-0500 Blood Pressure Location Morris CAGLE [facility] 04-08-2022 15:14-0500 Diastolic blood pressure 88 mm[Hg] Morris CAGLE [facility] 04-08-2022 15:14-0500 Heart rate 72 /min Morris CAGLE [facility] 04-08-2022 15:14-0500 Respiratory rate 16 /min Morris CAGLE [facility] 04-08-2022 15:14-0500 Systolic blood pressure 128 mm[Hg] Morris CAGLE [facility] [place] Encounters Encounter Date Encounter Type Care Provider Facility Start: 01-02-2023 End: 01-02-2023 ambulatory Diamond Cabraley Other [employer] Other Start: 01-02-2023 Office outpatient vi sit 15 minutes Diamond Calvey [facility] Start: 09-23-2022 End: 09-23-2022 ambulatory Diamond Calvey Other [employer] Other Start: 09-23-2022 Office outpatient vi sit 15 minutes Diamond Calvey [facility] Start: 09-02-2022 End: 09-02-2022 ambulatory Diamond Calvey Other [employer] Other Start: 09-02-2022 Office outpatient vi sit 15 minutes Diamond Calvey [facility] Start: 07-08-2022 End: 07-08-2022 ambulatory Diamond Calvey Other [employer] Other Start: 07-08-2022 Office outpatient vi sit 15 minutes Diamond Calvey [facility] Start: 06-03-2022 Office outpatient vi sit 15 minutes Diamond Calvey [facility] Start: 06-03-2022 End: 06-03-2022 ambulatory Diamond R Calvey Facility:[facility] Start: 06-03-2022 End: 06-03-2022 ambulatory MD Diamond Case Work Phone: [facility] Work Phone: Start: 06-03-2022 End: 06-03-2022 Patient encounter procedure MD Diamond Case Work Phone: [facility] Start: 05-16-2022 End: 05-17-[address] GABBY DEE . Facility:[facility] Start: 05-14-2022 End: 05-22-[address] GABBY DEE . Facility:[facility] Start: 05-07-2022 End: 05-08-2022 ambulatory Morris CAGLE Facility:[id number] Start: 05-06-2022 End: 05-06-2022 ambulatory Diamond Case Other [employer] Other Start: 05-06-2022 Office outpatient ne w [address] [facility] Start: 04-08-2022 End: 04-09-2022 ambulatory Morris CAGLE Facility:[facility] Start: 04-08-2022 End: 04-08-2022 Patient encounter procedure Morris Reena CAGLE [facility] [place] Start: 03-16-[address] GABBY DEE . Facili ty:[facility] Start: 02-26-2022 End: 02-26-[address] GABBY DEE . Facility:[facility] Start: 01-01-2022 End: 01-31-[address] GABBY DEE . Facility:[facility] Start: 12-16-2021 Encounter for genera l adult medical examination without abnormal findings DR GABBY DEE . [facility] Start: 12-13-2021 End: 12-14-[address] GABBY DEE . Facility:[facility] Start: 12-13-2021 End: 12-14-2021 Encounter for general adult medical examination without abnormal findings DR GABBY DEE . Facility:[facility] Start: 12-07-2021 End: 12-08-[address] GABBY DEE . Facility:[facility] Start: 10-28-2021 End: 10-29-[address] GABBY DEE . Facility:[facility] Start: 10-12-2021 End: 10-13-2021 ambulatory LEEANNE BRADLEY Facility:[facility] Start: 10-07-2021 End: 10-07-2021 ambulatory LEEANNE BRADLEY Facility:[facility] Procedures Date Procedure Procedure Detail Performing Clinician Start: 06-03-2022 Plain X-ray of left hand MD Diamond Case Work Phone: Start: 03-27-2021 Colonoscopy Morris NI LL Complete obstruction of lacrimal canaliculus (disorder) Morris NILL Fasciotomy of foot Morris BOWEN Comment on above: bilateral Ganglion cyst of rig ht foot Morris CAGLE Immunizations Immunization Date Immunization Notes Care Provider Fa cility 12-14-2021 influenza virus vaccine, unspecified formulation Morris CAGLE [facility] [place] 04-30-2020 SARS-CoV-2 (COVID-19 ) Ad26 vaccine, recombinant Morris CAGLE [facility] [place] 04-02-2020 SARS-CoV-2 (COVID-19 ) Ad26 vaccine, recombinant Morris MORGANL [facility] [place] Payers Date Payer Category Payer Self-pay 2022 Unknown [id number] 2019 Unknown [id number] 1970 Unknown [id number] 2.16.8 [id number] 1970 Unknown [id number] 2.16.8 [id number] 1970 Unknown [id number] 2.16.84 0.1.846280.3.579.2.593 1970 Unknown [id number] 2.16.84 0.1.859215.3.579.2.593 1970 Unknown [id number] 2.16.84 0.1.250911.3.579.2.593 1970 Unknown [id number] 2.16.84 0.1.802451.3.579.2.593 1970 Unknown [id number] 2.16.84 0.1.612985.3.579.2.593 1970 Unknown [id number] 2.16.84 0.1.398452.3.579.2.593 1970 Unknown [id number] 2.16.84 0.1.696067.3.579.2.593 1970 Unknown [id number] 2.16.84 0.1.876449.3.579.2.593 1970 Unknown [id number] 2.16.84 0.1.542314.3.579.2.593 1970 Unknown [id number] 2.16.84 0.1.122684.3.579.2.593 1970 Unknown [id number] 2.16.84 0.1.158222.3.579.2.593 1959 Self-pay [id number] Unknown [id number] 2.16.8 [id number] Social History Date Type Detail Facility Start: 04-08-2022 Tobacco smoking status Never s moked tobacco (finding) [facility] [place] Tobacco smoking status Never Gener al Surgery Diamond Sex Assigned At Female [facility] Start: 1970 Sex Assigned At Female F [facility] Functional Status Date Assessment Result Facility 04-08-2022 Functional Status N/A General Laws [facility] Clinical Notes 12-07-2021 to 01-02-2023 Note Date & Type Note Facility 01-02-2023 Evaluation note Encounter Date Diagnosis Assessment Notes Dec, Trigger finger, right middle finger (ICD-10 - M65.331) Dec, Arthritis of carpometacarpal (CMC) joint of right thumb (ICD-10 - M18.11) We performed a cortisone injection into the CMC joint under sterile technique. The patient tolerated this well without complication. We discussed that the finger may feel numb and tingle for hours after this injection. Patient did mention the possibility of surgical intervention sometime in April 2023. Dec, Primary osteoarthritis of first carpometacarpal joint of left hand (ICD-10 - M18.12) Dec, Left hand pain (ICD-10 - M79.642) Dec, Arthritis of carpometacarpal (CMC) joint of left thumb (ICD-10 - M18.12) We performed a cortisone injection into the CMC joint under sterile technique. The patient tolerated this well without complication. We discussed that the finger may feel numb and tingle for hours after this injection. Dec, Right lateral epicondylitis (ICD-10 - M77.11) This appears to be medial epicondylitis (golfers elbow). We discussed all treatment options including gentle stretching and strength exercise as pain allows, use of non-steroidal anti-inflammator y medication, formal physical therapy as well as cortisone injection and surgical release. [employer] Other 07-11-2023 Evaluation note* Encounter Date Diagnosis Assessment Notes Treatment Notes Treatment Clinical Notes Sep, Trigger finger, righ t middle finger (ICD-10 - M65.331) Sep, Arthritis of carpometacarpal (CMC) joint of right thumb (ICD-10 - M18.11) Sep, Primary osteoarthrit is of first carpometacarpal joint of left hand (ICD-10 - M18.12) Left thumb CMC joint injected with cortisone under sterile technique, patient tolerated well. Surgical options discussed with patient, CMC fusion discussed. She will contact office when ready Sep, Left hand pain (ICD- 10 - M79.642) [employer] Other 06-20-2023 Evaluation note* Encounter Date Diagnosis Assessment Notes Treatment Notes Treatment Clinical Notes Aug, Trigger finger, righ t middle finger (ICD-10 - M65.331) Aug, Arthritis of carpometacarpal (CMC) joint of right thumb (ICD-10 - M18.11) We performed a cortisone injection into the CMC joint under sterile technique. The patient tolerated this well without complication. We discussed that the finger may feel numb and tingle for hours after this injection. Aug, Right hand pain (ICD-10 - M79.641) Aug, Left hand pain (ICD- 10 - M79.642) Aug, Primary osteoarthrit is of first carpometacarpal joint of left hand (ICD-10 - M18.12) [employer] Other 2023 Evaluation note* Encounter Date Diagnosis Assessment Notes Treatment Notes Treatment Clinical Notes Jun, Trigger finger, righ t middle finger (ICD-10 - M65.331) Jun, Arthritis of carpometacarpal (CMC) joint of right thumb (ICD-10 - M18.11) Discussed with patient to continue to use voltaren gel and brace to help with the pain. Discussed with patient to call if she would like a repeat cortisone injection Jun, Right hand pain (ICD-10 - M79.641) Jun, Left hand pain (ICD- 10 - M79.642) Jun, Primary osteoarthrit is of first carpometacarpal joint of left hand (ICD-10 - M18.12) [employer] Other 03-21-2023 Evaluation note* Encounter Date Diagnosis Assessment Notes Treatment Notes Treatment Clinical Notes May, Trigger finger, righ t middle finger (ICD-10 - M65.331) May, Arthritis of carpometacarpal (CMC) joint of right thumb (ICD-10 - M18.11) May, Right hand pain (ICD-10 - M79.641) May, Left hand pain (ICD-10 - M79.642) May, Primary osteoarthritis of first carpometacarpal joint of left hand (ICD-10 - M18.12) The patient is suffering from degenerative arthritis involving the thumb CMC joint. We discussed the conservative treatment options which can be beneficial in relieving pain, including hand occupational therapy, wearing a brace, and non-steroidal anti-inflammatory medication. We discussed the use of occasional cortisone injections that can provide pain relief. , We performed a cortisone injection into the CMC joint under sterile technique. The patient tolerated this well without complication. We discussed that the finger may feel numb and tingle for hours after this injection. [employer] Other 03-04-2023 NotePROCEDURE: XR FOOT RT MIN 3 VIEWS COMPARISON: None. HISTORY: Pain in right foot FINDINGS: BONES:No acute fracture or dislocation. Corticated bone fragment identified along the base first distal phalanx possibly related injury or accessory ossicle. Mild plantar degenerative changes of the calcaneus SOFT TISSUES:Negative. No visible soft tissue swelling. EFFUSION:None visible. OTHER: Negative. IMPRESSION: No acute fracture Electronically authenticated by: AL CAMPOS Date: 2022-05-17 12:06[facility] [id number] NoteOPERATIVE NOTE OPERATION DATE: 05/07/2022 PREOPERATIVE DIAGNOSIS: Personal history of villoglandular sigmoid polyp. POSTOPERATIVE DIAGNOSIS: Rectal polyps x2, 2 mm and 4 mm. PROCEDURE: Colonoscopy to cecum with hot snare polypectomy x1 and cold biopsy forceps polypectomy x1. SURGEON: Morris Cagle M.D. ANESTHESIA: Monitored anesthesia care. ESTIMATED BLOOD LOSS: Less than 1 mL. INDICATIONS AND CONSENT: Patient is a 52-year-old female with a personal history of villoglandular sigmoid polyp that was removed one year ago. She now presents for surveillance colonoscopy. Indications, risks, benefits, alternatives of proceeding with colonoscopy were explained extensively to the patient, including the risks of bleeding, colon perforation or anesthetic complications. All of her questions were answered. Informed consent was obtained. PROCEDURE: Patient brought to the operating room, placed in the left lateral decubitus position. Monitored anesthesia care was provided. Rectal exam was performed which showed no masses or blood. The scope was inserted into the anal canal. Under direct visualization was advanced. It was advanced to the cecum where cecal markings were clearly identified. There was noted to be a good prep. Upon withdrawal of the scope, mucosal surfaces were carefully examined. There were no mass lesions or inflammatory changes. There was severe sigmoid diverticulosis without inflammatory changes or scarring. Previous polypectomy site was noted with a small amount of scar, but there was no recurrent polyp noted. In the proximal rectum, there was noted to be a 2 mm sessile polyp that removed with cold biopsy forceps with good hemostasis. In the distal rectum, there was noted to be a 4 mm irregular flat polyp that was removed with cold biopsy forceps with good hemostasis. The scope was retroflexed in the anal canal. There was no significant hemorrhoidal disease. Scope was then withdrawn. Patient tolerated procedure well, was sent to recovery room in good condition. CC: Gabby Dee M.D.[facility] [id number] NoteOPERATIVE NOTE OPERATION DATE: 05/07/2022 ADDENDUM: The distal rectal 4 mm irregular flat polyp was removed with hot snare with good hemostasis, not with cold biopsy forceps.[facility] 05-06-2022 Evaluation note* Encounter Date Diagnosis Assessment Notes Treatment Notes Treatment Clinical Notes Apr, Trigger finger, righ t middle finger (ICD-10 - M65.331) This appears to trigger finger. We discussed the cause of this condition and the treatment options. We discussed stretching of the finger as well as massage of the palmar MCP region. We discussed the use of cortisone injection into the palmar aspect of the hand at the trigger site can be helpful in relieving painful symptoms. We also discussed the option of surgical release which can eliminate the problem. We performed a cortisone injection into the palmar aspect of the right middle finger near at the A1 theresa under sterile technique. The patient tolerated this well without complication. We discussed that the finger may feel numb and tingle for hours after this injection. Patient also instructed on the use of Lidocaine Patches and Voltaren Gel Apr, Arthritis of carpometacarpal (CMC) joint of right thumb (ICD-10 - M18.11) Non surgical options discussed to include topical and oral NSAIDs, use of heat and ice, bracing, hand therapy, use of lidocaine patches, use of turmeric/curcumin and Glucosamine/Chondro itin, and oral and injectable steroids. Surgical options discussed to include CMC fusion and trapeziectomy LRTI. Right thumb CMC joint injected with cortisone under sterile technique, patient tolerated well. Patient also instructed on the use of Lidocaine Patches and Voltaren Gel. Occupational therapy/bracing order given Apr, Right hand pain (ICD-10 - M79.641) [employer] Other 09-24-2022 NotePROCEDURE: XR SHOULDER LT 2V or > COMPARISON: None. HISTORY: Impingement syndrome of shoulder region FINDINGS: BONES:No fracture, acute abnormality, or significant arthropathy. SOFT TISSUES:Negative. No visible soft tissue swelling. EFFUSION:None visible. OTHER: Negative. IMPRESSION: No acute disease. Electronically authenticated by: AL CAMPOS Date: 2021-12-07 19:36[facility] note No data available for this section General Surgery [place] Evaluation noteNo assessment information available [facility] Work Phone: History general Narrative - Reported* Type Description Date Medical History high cholesterol Surgical History Foot Surgery Surgical History clogged tear duct [employer] Other Hospital Discharge instructions No data available for this section General Surgery [place] Progress note No data available for this section General Surgery [place] Summary Purpose Family History No Family History Records FoundNo Family History Records FoundNo Family History Records Found Advance Directives No Advanced Directives Records FoundNo Advanced Directives Records FoundNo Advanced Directives Records Found Additional Source Comments Patient Care team informatio n (unrecognized section and content) Team Status: Inactive Member Role Status Dates Diamond Case MD Attending Provider Active INFORMATION SOURCE (unrecogn ized section and content) DATE CREATED AUTHOR [facility]16[facility]2022 [facility] DATE CREATED AUTHOR AUTHOR'S ORGANIZ ATION 06/18/2022 [facility] DATE CREATED AUTHOR AUTHOR'S ORGANIZ ATION 06/21/2022 [facility] REASON FOR VISIT (unrecogniz ed section and content) Right Hand PainRecheck Right Hand, New Left HandRecheck Bilateral HandsRecheck Bilateral HandsLeft Thumb PainBilateral Thumb Pain Goals (unrecognized section and content) Goals may be documented in a n alternate section FOR RECORDS PERTAINING TO PATIENTS WHO ARE OR HAVE BEEN ENROLLED IN A CHEMICAL DEPENDENCY/SUBSTANCEABUSE PROGRAM, SOME INFORMATION MAY BE OMITTED. This clinical summary was aggregated from multiple sources. Caution should be exercised in using it in the provision of clinical care. This summary normalizes information from multiple sources, and as a consequence, information in this document may materially change the coding, format and clinical context of patient data. In addition, data may be omitted in some cases. CLINICAL DECISIONS SHOULD BE BASED ON THE PRIMARY CLINICAL RECORDS. [employer] provides no warranty or guarantee of the accuracy or completeness of information in this document.
--- NOTE | 2023-03-12 12:34 | CT_ITS ---
[address] [address] Patient Name: THERESA JOSHUA MRN: [id number] date: 1970 Sex: F [place]igned Patient Location: [place] Current Patient Location: [place] Accession/Order Number: [id number] Exam Date: 03/12/2023 13:04 Report Date: 03/12/2023 13:51 At the request of: GABBY DAO Procedure: CT cervical spine wo con EXAM: CT cervical spine wo con; [id number] REASON FOR EXAM: Left arm radiculopathy COMPARISON: None. TECHNIQUE: Helical CT images of the cervical spine were obtained without contrast. Multiplanar reformats generated at the scanner. Dose reduction technique used: Automated exposure control and/or adjustment of the mA and/or kV according to patient size and/or use of iterative reconstruction technique. FINDINGS: Note: Compared with contrast-enhanced CT exams, noncontrast images are less sensitive for detection of some types of vascular, solid organ, and soft tissue pathology. Alignment: -Mild focal kyphosis centered at C4 Non degenerative osseous findings: -No suspicious osseous lesion. -No acute fracture. Cervical spine degenerative changes: C2-C3: -Disc: Mild disc height loss. -Osseous endplate: Osteophytic lipping. -Facets: Minimal bilateral arthropathy. -Osseous spinal canal narrowing: None. -Osseous neuroforaminal narrowing: None. C3-C4: -Disc: Moderate disc height loss -Osseous endplate: Moderate posterior predominant osteophytosis. -Facets: No osseous degenerative changes. -Osseous spinal canal narrowing: Moderate -Osseous neuroforaminal narrowing: Mild bilaterally C4-C5: -Disc: Severe disc height loss -Osseous endplate: Moderate osteophytosis -Facets: No osseous degenerative changes. -Osseous spinal canal narrowing: Mild/moderate -Osseous neuroforaminal narrowing: Severe on the right and moderate on the left C5-C6: -Disc: Moderate/severe disc height loss -Osseous endplate: Moderate osteophytosis -Facets: No osseous degenerative changes. -Osseous spinal canal narrowing: Mild -Osseous neuroforaminal narrowing: Severe on the right and mild on left C6-C7: -Disc: Severe disc height loss -Osseous endplate: Moderate/severe osteophytosis -Facets: No osseous degenerative changes. -Osseous spinal canal narrowing: Mild/moderate -Osseous neuroforaminal narrowing: Severe bilaterally C7-T1: -Disc: Mild disc height loss -Osseous endplate: Osteophytic lipping -Facets: Mild bilateral arthropathy -Osseous spinal canal narrowing: None. -Osseous neuroforaminal narrowing: None. Paraspinous soft tissues: No significant abnormality. Visualized lung apices: Clear. CT/CT cervical spine wo con IMPRESSION: 1. Severe cervical spondylosis most notable from C4 through C7. 2. Degenerative changes result in varying degrees of osseous spinal canal and osseous neural foraminal narrowing as above. Notable findings are moderate spinal canal narrowing at C3-C4 as well as severe right-sided osseous foraminal narrowing from C4 through C7 as well as severe left-sided foraminal narrowing at C6-C7. Electronically authenticated by: TENZIN GUZMAN Date: 03/12/2023 13:51
[2023-03-12 14:07] LABS: Basophils Percent Auto 0.1 % (0.2-2.0); Eosinophils Percent Auto 0.1 % (0.9-7.0); Hematocrit 43.5 % (36.0-48.0); Hemoglobin 14.4 g/dL (12.0-16.0); Immature Granulocytes Abs Auto 0.07 10^3/uL (0.00-0.03); Immature Granulocytes Pct Auto 0.6 % (0.0-0.5); Lymphocytes Percent Auto 7.8 % (20.5-60.0); Mean Corpuscular HGB Conc 33.1 g/dL (29.9-35.2); Mean Corpuscular Hemoglobin 28.9 pg (26.7-34.0); Mean Corpuscular Volume 87.2 fL (81.0-99.0); Mean Platelet Volume 9.7 fL (9.5-13.5); Monocytes Absolute Auto 0.2 10^3/uL (0.3-0.8); Monocytes Percent Auto 1.8 % (1.7-12.0); Neutrophils Absolute Auto 11.3 10^3/uL (1.4-6.5); Neutrophils Percent Auto 89.6 % (43.0-75.0); Platelet Count 311 10^3/uL (150-450); Red Blood Count 4.99 10^6/uL (4.20-5.40); Red Cell Distribution Width 12.7 % (11.0-15.0); White Blood Count 12.6 10^3/uL (4.0-11.0)
[2023-03-12 14:22] LABS: Anion Gap 13.2; Calcium 9.3 mg/dL (8.5-10.1); Carbon Dioxide 27.9 mmol/L (21.0-32.0); Chloride 102 mmol/L (98-107); Estimated GFR (African America >60 (>=60); Estimated GFR (Non-African Ame >60 (>=60); Glucose 144 mg/dL (74-106); Potassium 4.1 mmol/L (3.5-5.1); Sodium 139 mmol/L (136-145)
[2023-03-12] MEDS: KETOROLAC TROMETHAMINE 30 MG/ML VIAL IVP ×2 (15:22→21:03)
[2023-03-12] MEDS: ORPHENADRINE 60 MG/ 2 ML VIAL IV (15:22)
[2023-03-12] MEDS: METHYLPREDNISOLONE SOD SUCC 500 MG in 0.9 % SODIUM CHLORIDE 100 ML 100 MG IV (15:22)
[2023-03-12] MEDS: HYDROMORPHONE HCL 1 MG/ML CARTRIDGE IVP ×2 (18:13→22:36)
[2023-03-13] MEDS: ORPHENADRINE 60 MG/ 2 ML VIAL IV ×2 (02:46→13:04)
[2023-03-13] MEDS: HYDROMORPHONE HCL 1 MG/ML CARTRIDGE IVP (02:46)
[2023-03-13 03:57] VITALS: PULSE 95
[2023-03-13 06:00] VITALS: BP 127/80; PULSE 76; RESP 16; TEMP 36.5; O2SAT 95
[2023-03-13 06:10] VITALS: O2SAT 91
--- NOTE | 2023-03-13 07:57 | P.PN_ITS ---
Progress Note: Subjective Subjective Interval history: Pain much improved with range of motion neck improved Exam Constitutional Vital Signs, click to edit/add: Last Vital Signs Temp 97.7 F 03/13/23 06:00 Pulse 76 03/13/23 06:00 Resp 16 03/13/23 06:00 BP 127/80 03/13/23 06:00 Pulse Ox 91 L 03/13/23 06:10 O2 Del Method Room Air 03/13/23 06:00 Documenting provider has reviewed patient's vital signs: yes Common normals: no apparent distress Neck & C-Spine Common normals: no lymphadenopathy, supple and no meningeal signs; negative for full ROM Other: Full range of motion neck secondary to pain especially looking to the left Extremity Common normals: abnormal to inspection Other: [employer] strength weakness noted in the left arm with easy fatigue Progress Note: Objective Labs Labs: Short CBC 03/12/23 Range/Units 13:59 WBC 12.6 H (4.0-11.0) 10^3/uL Hgb 14.4 (12.0-16.0) g/dL Hct 43.5 (36.0-48.0) % Plt Count 311 (150-450) 10^3/uL BMP 03/12/23 13:59 Sodium 139 Potassium 4.1 Chloride 102 Carbon Dioxide 27.9 BUN 15.0 Creatinine 0.79 Glucose 144 H Calcium 9.3 Progress Note: A&P Assessment and Plan (1) Cervical muscle strain: Assessment and Plan: Cervical radiculopathy with left-sided weakness. Improved today from exam in office. Will repeat dose of Solu-Medrol tomorrow. To get her 3 doses. Will start the process for MRI scan of neck, CT scan with significant abnormality in the C6-7 range. Medications see list. Will follow-up with patient next week.
[2023-03-13 08:00] VITALS: BP 146/79; PULSE 76; RESP 16; RESP 18; TEMP 36.5; O2SAT 91
[2023-03-13] MEDS: DESVENLAFAXINE SUCCINATE 50 MG TAB.ER.24H 25 MG PO (08:25)
[2023-03-13] MEDS: ACETAMINOPHEN 500 MG TABLET 1000 MG PO (08:28)
[2023-03-13] MEDS: KETOROLAC TROMETHAMINE 30 MG/ML VIAL IVP ×2 (08:29→14:20)
[2023-03-13 14:00] VITALS: BP 162/89; PULSE 75; RESP 16; TEMP 36.6; O2SAT 97
[2023-03-13] MEDS: METHYLPREDNISOLONE SOD SUCC 500 MG in 0.9 % SODIUM CHLORIDE 100 ML 100 MG IV (14:13)
[2023-03-13 15:54] VITALS: O2SAT 98
== END 2023-03-13 17:31 | disposition home or self-care (01) ==
PROVIDERS: Admitting Provider Family Medicine; PCP Family Medicine; Visit Provider Family Medicine
DX: S16.1XXA Strain of muscle, fascia and tendon at neck level, initial encounter (principal); M54.12 Radiculopathy, cervical region; R53.1 Weakness; E78.00 Pure hypercholesterolemia, unspecified; Z86.16 Personal history of COVID-19; Z79.899 Other long term (current) drug therapy
CPT/HCPCS: 36415; 72125; 80048; 85025; 94761; 96365; 96366; 96375; 96376; G0378; G0379; J1170

== ENCOUNTER 2023-03-13 13:04 | Outpatient (OUT) | payer BC, SELFPAY ==
--- OUTSIDE RECORDS SUMMARY | 2023-03-13 13:07 | XMS_ITS | CCD ---
Author Name Unknown Address [address] [place] [address] Organization [facility] Care Team Providers Care Supervisor Sawmill Name Role Phone Gabby Dee Primary Care Physician Morris CAGLE Attending Unavailable JEFF, Morris Valles Attending Unavailable Diamond Case Unavailable MD Diamond Case Attending Provider [phone] Diamond Case Admitting Unavailable Diamond Case Attending Unavailable SYLWIA ., DR PIERRE Primary Care Unavailable HOY ., DR PIERRE Consulting Unavailable MISC, DR BATISTA Attending Unavailable MISC, DR BATISTA Admitting Unavailable NILL ., DR ARECHIGA Admitting Unavailable NILL ., DR ARECHIGA Consulting Unavailable HOY ., DR PIERER Primary Care Unavailable NILL ., DR ARECHIGA [...] Unavailable HOY ., DR PIERRE Admitting Unavailable WARREN, DR AL Shaikh Consulting Unavailable HOY ., [...] Unavailable HOY ., DR PIERRE Consulting Unavailable WARREN, DR AL Shaikh Consulting Unavailable HOY ., DR PIERRE Admitting Unavailable HOY ., DR PIERRE Attending Unavailable HOY ., DR PIERRE Primary Care Unavailable Allergies Allergy Classification Reported Allergen(s) Allergy Type Date of Onset Reaction(s) Facility (1 source) No Known Medication Allergies; Translations: [No Known Medication Allergies] Propensity to adverse reactions (disorder) [facility] Repository (2 sources) Baclofen Drug Allergy [facility] Medications Current Medications Medication Drug Class(es) [...] 3V*on 023 XR hand LT min 3V* [facility] Main [address] [address] XRay Report Signed Patient: Theresa Reyes MR#: [id number] : 1970 Acct:[id number] Age/Sex: 52 / F ADM Date: 06/03/22 Loc: [facility] Room: Type: [facility] Attending Dr: Diamond Case MD Copies to: [...] Miguel Ramey M.D.06/03/2022 1:11 PM Dictation Location: [place] [address] Transcribed By: [facility] 06/03/22 1311 Dictated By: Miguel Ramey II, MD 06/03/22 1310 Signed By: 06/03/22 1311 Normal [facility] XR hand LT min 3V* [facility] [employer] Other XR hand LT min 3V* [facility] [employer] Other XR hand LT min 3V* [address] [place] [address] [employer] Other XR hand LT min 3V* [place] [address] [facility] [employer] Other XR hand LT min 3V* XRay Report [facility] Other XR hand LT min 3V* Signed [facility] Other XR hand LT min 3V* Patient: Theresa Reyes MR#: [id number] [facility] Other XR hand LT min 3V* [id number] [facility] Other XR hand LT min 3V* : 1970 Acct:[id number] [facility] Other XR hand LT min 3V* Age/Sex: 52 / F ADM Date: 06/03/22 [facility] Other XR hand LT min 3V* Loc: [facility] Room: Type : [facility] Other XR hand LT min 3V* Attending Dr: Benny Case MD [facility] Other XR hand LT min 3V* Copies to: Diamond Case MD [facility] Other XR hand LT min 3V* Ordering Provider: Diamond Case MD [facility] Other XR hand LT min 3V* Date of Service: 06/03/22 [facility] Other XR hand LT min 3V* XR/XR hand LT min 3V*: PAIN [facility] Other XR hand LT min 3V* XR hand LT min 3V* 06/03/2022 8:44 AM [facility] Other XR hand LT min 3V* SIGNS AND SYMPTOMS: Left thumb/first metacarpal pain [facility] Other XR hand LT min 3V* PROTOCOL: Frontal, lateral, and oblique radiographs of the left hand: [facility] Other XR hand LT min 3V* COMPARISON: None [facility] Other XR hand LT min 3V* FINDINGS: [facility] Other XR hand LT min 3V* The bones are in anatomic alignment. There is mild degenerative change at the first carpometacarpal [facility] Other XR hand LT min 3V* junction. There is preservation of the joint spaces, otherwise. There is no fracture or dislocation. [facility] Other XR hand LT min 3V* No significant soft tissue swelling. [facility] Other XR hand LT min 3V* XR/XR hand LT min 3V* [facility] Other XR hand LT min 3V* IMPRESSION: [facility] Other XR hand LT min 3V* No acute bony injury. [facility] Other XR hand LT min 3V* Mild degenerative fa cet noted at the base of the thumb. [facility] Other XR hand LT min 3V* Impression dictated by: Miguel Ramey M.D.06/03/2022 1:11 PM [facility] Other XR hand LT min 3V* Dictation Location: [place] [address] [facility] Other XR hand LT min 3V* Transcribed By: KARRIE 06/03/22 [facility] Other XR hand LT min 3V* Dictated By: Miguel Ramey II, MD 06/03/22 [facility] Other XR hand LT min 3V* Signed By: [facility] Other XR hand LT min 3V* 06/03/[address] [place] [address] [employer] Other [employer] 05-15-2022 Reminders - From: Jessica Mims LPN To: WILMARN - Clinical; Sent: 05/15/2022 07:57:39 EST Show up: 04/06/2025 07:00:00 EST Subject: colonoscopy recall Due Date/Time: 05/07/2025 07:00:00 EST Reminder/Recall Patient is due for colonoscopy 05/07/2025 due to history of tubulovillous adenoma. Normal [facility] Pathology Noteon 05-09-2022 Pathology Note [id number]#1.00CD :[address] [facility] Outside Colonoscopyon 2022 Outside Colonoscopy [id number]#1.00C D:[address] [facility] PREG HCG QUALon 05-07-2022 , QUAL Negative Normal NEGATIVE [facility] Comment on above: Performed By: #### P REG #### [facility] [address] [place] [address] Dr. Hu Can Pre-Certification Formon Pre-Certification Form [id number]#1.00 CD:[address] [facility] Consent for Procedure/Surger yon 04-10-2022 Consent for Procedure/Surgery [id number]#1.00C D:[address] [facility] Facesheeton 04-10-2022 Facesheet [id number]#1.00C D:[address] [facility] General Surgery Office/Clini c Noteon 04-08-2022 General [...] SARS-CoV-2 (COVID-19) Ad26 vaccine 04/02/[address] [facility] Comment on above: Result Comment: Elec tronically Signed By: JEFF PNOCE, Morris Nelson\Date and Time Signed: 04/08/22 15:33 EST Covid-19 PCR (CVDTB)on 02-13 SARS-CoV-2 (COVID-19) RNA CLARISSA+probe Ql (Unsp spec) Not detected Normal NOT DETECTED [facility] Comment on above: Result Comment: When diagnostic [...] for this test is supported by the [place] of Health and Human Service's declaration that [...] used). Performed By: #### C VDTB #### [facility] [address] [place] [address] Dr. Hu Can INFLUENZA A AND B [facility] 02-26 [facility] SEE BELOW Normal [facility] Comment on above: Result Comment: Nega tive for Flu A protein angiten. Infection due to Flu A cannot be ruled out. Flu A angiten in the sample may be below the detection limit of the test. Performed By: #### I NFLUAB #### [facility] [address] [place] [address] Dr. Hu Can [facility] SEE BELOW Normal [facility] Comment on above: Result Comment: Nega tive for Flu B protein antigen. Infection due to Flu B cannot be ruled out. Flu B antigen in the sample may be below the detection limit of the test. Performed By: #### I NFLUAB #### [facility] [address] [place] [address] Dr. Hu Can INFLUENZA A AG Negative Normal NEGATIVE SEE COMMENT [facility] Comment on above: Performed By: #### I NFLUAB #### [facility] [address] [place] [address] Dr. Hu Can INFLUENZA B AG Negative Normal NEGATIVE SEE COMMENT [facility] Comment on above: Performed By: #### I NFLUAB #### [facility] [address] [place] [address] Dr. Hu Can INTERNAL CONTROLS Within Normal Limits Normal Wi thin Normal Limits [facility] Comment on above: Performed By: #### I NFLUAB #### [facility] [address] [place] [address] Dr. Hu Can CBC AUTO DIFFon 12-13-2021 BASO # 0.0 103/ul Normal 0.0-0.1 [facility] Comment on above: Performed By: #### C BC #### [facility] [address] [place] [address] Dr. Hu Can Basophils/100 WBC (Bld) 0.3 % Normal 0.2-2.0 [facility] Comment on above: Performed By: #### C BC #### [facility] [address] [place] [address] Dr. Hu Can EO # 0.1 103/ul Normal 0.0-0.7 [facility] Comment on above: Performed By: #### C BC #### [facility] [address] [place] [address] Dr. Hu Can Eosinophils/100 WBC (Bld) 1.1 % Normal 0.9-7.0 [facility] Comment on above: Performed By: #### C BC #### [facility] [address] [place] [address] Dr. Hu Can Erythrocyte distribution width (RBC) [Ratio] 13.7 % Normal 11.0-15.0 [facility] Comment on above: Performed By: #### C BC #### [facility] [address] [place] [address] Dr. Hu Can Hematocrit (Bld) [Volume fraction] 44.6 % Normal 36.0-48.0 [facility] Comment on above: Performed By: #### C BC #### [facility] [address] [place] [address] Dr. Hu Can Hemoglobin (Bld) [Mass/Vol] 14.5 g/dL Normal 12.0-16.0 [facility] Comment on above: Performed By: #### C BC #### [facility] [address] [place] [address] Dr. Hu Can IG # 0.02 10e3/ul Normal 0.00-0.03 [facility] Comment on above: Performed By: #### C BC #### [facility] [address] [place] [address] Dr. Hu Can IG % 0.3 % Normal 0.0-0.5 [facility] Comment on above: Performed By: #### C BC #### [facility] [address] [place] [address] Dr. Hu Can LYMPH # 2.3 103/ul Normal 1.2-3.8 [facility] Comment on above: Performed By: #### C BC #### [facility] [address] [place] [address] Dr. Hu Can Lymphocytes/100 WBC (Bld) 30.5 % Normal 20.5-60.0 [facility] Comment on above: Performed By: #### C BC #### [facility] [address] [place] [address] Dr. Hu Can MANUAL DIFF REQ NO Normal [facility] Comment on above: Performed By: #### C BC #### [facility] [address] [place] [address] Dr. Hu Can MCH (RBC) [Entitic mass] 29.1 pg Normal 26.7-34.0 [facility] Comment on above: Performed By: #### C BC #### [facility] [address] [place] [address] Dr. Hu Can MCHC (RBC) [Mass/Vol] 32.5 g/dL Normal 29.9-35.2 [facility] Comment on above: Performed By: #### C BC #### [facility] [address] [place] [address] Dr. Hu Can MCV (RBC) [Entitic vol] 89.6 fL Normal 81.0-99.0 [facility] Comment on above: Performed By: #### C BC #### [facility] [address] [place] [address] Dr. Hu Can MONO # 0.5 103/ul Normal 0.3-0.8 [facility] Comment on above: Performed By: #### C BC #### [facility] [address] [place] [address] Dr. Hu Can Monocytes/100 WBC (Bld) 6.8 % Normal 1.7-12.0 [facility] Comment on above: Performed By: #### C BC #### [facility] [address] [place] [address] [address] Hu Can NEUT # 4.6 103/ul Normal 1.4-6.5 [facility] Comment on above: Performed By: #### C BC #### [facility] [address] [place] [address] [address] Hu Can Neutrophils/100 WBC (Bld) 61.0 % Normal 43.0-75.0 [facility] Comment on above: Performed By: #### C BC #### [facility] [address] [place] [address] [address] Hu Can Platelet mean volume (Bld) [Entitic vol] 9.3 fL Critically low 9.5-13.5 [facility] Comment on above: Performed By: #### C BC #### [facility] [address] [place] [address] Dr. Hu Can PLT 296 103/ul Normal 150-450 [facility] Comment on above: Performed By: #### C BC #### [facility] [address] [place] [address] [address] Hu Can RBC 4.98 106/ul Normal 4.20-5.40 [facility] Comment on above: Performed By: #### C BC #### [facility] [address] [place] [address] Dr. Hu Can WBC 7.5 103/ul Normal 4.0-11.0 [facility] Comment on above: Performed By: #### C BC #### [facility] [address] [place] [address] Dr. Hu Can GLYCOHEMOGLOBIN A1Con 2021 ADA RECOMMENDATION SEE BELOW Normal [facility] Comment on above: Result Comment: ADA RECOMMENDED LIMIT 4.0 - 6.0 ADA THERAPEUTIC TARGET < 7.0 ACTION SUGGESTED > 7.0 Performed By: #### A 1C #### [facility] [address] [place] [address] Dr. Hu Can Glucose [Mass/Vol] 114 mg/dL Normal [facility] Comment on above: Performed By: #### A 1C #### [facility] [address] [place], [place] [address] Dr. Hu Can HbA1c (Bld) [Mass fraction] 5.6 % Normal 4.5-6.2 [facility] Comment on above: Performed By: #### A 1C #### [facility] [address] [place], [place] [address] Dr. Hu Can LIPID PROFILEon 12-13-2021 CHOL-HDL RATIO NORM SEE BELOW Normal [facility] Comment on above: Result Comment: 3.3 - 4.4 LOW RISK 4.4 - 7.1 AVERAGE RISK 7.1 - 11.0 MODERATE RISK >11.0 HIGH RISK Performed By: #### T ABDI, CMP, LIPID ####[facility] [address] [place] [id number]. Hu Can Cholesterol [Mass/Vol] 279 mg/dL Critically high <=200 [facility] Comment on above: Performed By: #### T ABDI, CMP, LIPID ####[facility] [address] [place] [id number]. Hu Can Cholesterol in HDL [Mass/Vol] 50 mg/dL Normal 40-60 [facility] Comment on above: Performed By: #### T ABDI, CMP, LIPID ####[facility] [address] [place], [place] [address]Yk. Hu Can Cholesterol in LDL [Mass/Vol] 197.8 mg/dL Normal [facility] Comment on above: Performed By: #### T ABDI, CMP, LIPID ####[facility] [address] [place], [place] [address]Pa. Hu Can Cholesterol.total/ Cholesterol in HDL [Mass ratio] 5.6 {ratio} Normal [facility] Comment on above: Performed By: #### T ABDI, CMP, LIPID ####[facility] [address] [place], [place] [address]Tw. Hu Can HDL NORMAL > or = 60 mg/dl - LO W CARDIOVASCULAR RISK <40 mg/dl - HIGH CARDIOVASCULAR RISK Normal [facility] Comment on above: Performed By: #### T SH, CMP, LIPID ####[facility] [address] [place] [address]Dr. Hu Can LDL CALC NORMAL SEE BELOW Normal [facility] Comment on above: Result Comment: <100 mg/dl OPTIMAL 100 - 129 mg/dl NEAR OR ABOVE OPTIMAL 130 - 159 mg/dl BORDERLINE HIGH 160 - 189 mg/dl HIGH >190 mg/dl VERY HIGH Performed By: #### T SH, CMP, LIPID ####[facility] [address] [place] [address]Dr. Hu Can Triglyceride [Mass/Vol] 156 mg/dL Critically high <=150 [facility] Comment on above: Performed By: #### T ABDI, CMP, LIPID ####[facility] [address] [place] [address]Dr. Hu Can VLDL CALC 31.2 mg/dL Normal [facility] Comment on above: Performed By: #### T ABDI, CMP, LIPID ####[facility] [address] [place] [address]Dr. Hu Can PROF 14(COMP METB)on 022 Albumin [Mass/Vol] 3.8 g/dL Normal 3.4-5.0 [facility] Comment on above: Performed By: #### T ABDI, CMP, LIPID ####[facility] [address] [place] [address]Dr. Hu Can Albumin/Globulin [Mass ratio] 1.2 {ratio} Normal [facility] Comment on above: Performed By: #### T SH, CMP, LIPID ####[facility] [address] [place] [address]Dr. Hu Can ALP [Catalytic activity/Vol] 74 U/L Normal 46-116 [facility] Comment on above: Performed By: #### T SH, CMP, LIPID ####[facility] [address] [place] [address]Dr. Hu Can ALT [Catalytic activity/Vol] 19 U/L Normal 14-59 [facility] Comment on above: Performed By: #### T SH, CMP, LIPID ####[facility] [address] [place] [id number]. Hu Can Anion gap [Moles/Vol] 11.0 mmol/L Normal [facility] Comment on above: Performed By: #### T SH, CMP, LIPID ####[facility] [address] [place] [id number]. Hu Can AST [Catalytic activity/Vol] 12 U/L Critically low 15-37 [facility] Comment on above: Performed By: #### T SH, CMP, LIPID ####[facility] [address] [place] [id number]. Hu Can Bilirubin [Mass/Vol] 0.7 mg/dL Normal 0.2-1.0 [facility] Comment on above: Performed By: #### T SH, CMP, LIPID ####[facility] [address] [place] [address]Dr. Hu Can Calcium [Mass/Vol] 8.7 mg/dL Normal 8.5-10.1 [facility] Comment on above: Performed By: #### T SH, CMP, LIPID ####[facility] [address] [place] [id number]. uH Can Chloride [Moles/Vol] 102 mmol/L Normal 98-107 [facility] Comment on above: Performed By: #### T SH, CMP, LIPID ####[facility] [address] [place] [id number]. Hu Can CO2 [Moles/Vol] 28.2 mmol/L Normal 21.0-32.0 [facility] Comment on above: Performed By: #### T SH, CMP, LIPID ####[facility] [address] [place] [id number]. Hu Can Creatinine [Mass/Vol] 0.91 mg/dL Normal 0.55-1.02 [facility] Comment on above: Performed By: #### T SH, CMP, LIPID ####[facility] [address] [place] [id number]. Hu Can EGFR-AF GHANAIAN >60 Normal >=60 [facility] Comment on above: Performed By: #### T SH, CMP, LIPID ####[facility] [address] [place] [address]Dr. Ellikaila Can EGFR-NON AF GHANAIAN >60 Normal >=60 [facility] Comment on above: Performed By: #### T SH, CMP, LIPID ####[facility] [address] [place] [address]Dr. Hu Can Globulin (S) [Mass/Vol] 3.3 g/dL Normal [facility] Comment on above: Performed By: #### T SH, CMP, LIPID ####[facility] [address] [place] [address]Dr. Hu Can Glucose [Mass/Vol] 105 mg/dL Normal 74-106 [facility] Comment on above: Performed By: #### T SH, CMP, LIPID ####[facility] [address] [place] [address]Dr. uH Can Potassium [Moles/Vol] 4.2 mmol/L Normal 3.5-5.1 [facility] Comment on above: Performed By: #### T SH, CMP, LIPID ####[facility] [address] [place] [address]Dr. Hu Can Protein [Mass/Vol] 7.1 g/dL Normal 6.4-8.2 [facility] Comment on above: Performed By: #### T SH, CMP, LIPID ####[facility] [address] [place] [address]Dr. Ellikaila Can Sodium [Moles/Vol] 137 mmol/L Normal 136-145 [facility] Comment on above: Performed By: #### T SH, CMP, LIPID ####[facility] [address] [place] [address]Dr. Hu Can Urea nitrogen [Mass/Vol] 23.0 mg/dL Critically high 7.0-18.0 [facility] Comment on above: Performed By: #### T SH, CMP, LIPID ####[facility] [address] [place] [address]Dr. Hu Can Urea nitrogen/Creatinin e [Mass ratio] 25.3 mg/mg Normal [facility] Comment on above: Performed By: #### T ABDI, CMP, LIPID ####[facility] [address] [place], [place] [address]Ic. Hu Can TSHon 12-13-2021 TSH 1.249 uIU/mL Normal 0.358-3.740 [facility] Comment on above: Performed By: #### T ABDI, CMP, LIPID ####[facility] [address] [place], [place] [address]Ul. Hu Can XR CSPINE MIN 4 VIEWSon [...] AL CAMPOS Date: 2021-12-07 19:38 Normal [facility] MG MAMM SCREEN 3D HIEU CADon 10-28-2021 MG MAMM SCREEN 3D HIEU CAD Patient: THERESA REYES Exam Date: 10/28/2021 : 1970 Gender:F Ordering : DR GABBY DEE . Admission #: [id number] Family : Order #: [id number] CLICK HERE TO VIEW EXAM RADIOLOGY REPORT [...] ovarian cancer at age 80. LOCATION: [facility] BREAST COMPOSITION: Scattered areas fibroglandular density. FINDINGS: [...] M.D. on 10/28/2021 at 12:02 Normal [facility] Covid-19 PCR (CVDTB)on 09-15 SARS-CoV-2 (COVID-19) RNA CLARISSA+probe Ql (Unsp spec) Not detected Normal NOT DETECTED [facility] Comment on above: Result Comment: When diagnostic [...] for this test is supported by the [place] of Health and Human Service's declaration that [...] used). Performed By: #### C VDTB #### [facility] [address] [place] [address] Dr. Hu Can Covid-19 PCR (CVDTB)on 09-14 SARS-CoV-2 (COVID-19) RNA CLARISSA+probe Ql (Unsp spec) Detected Critically abnormal NOT DETECTED [facility] Comment on above: Result Comment: This test is not yet approved or cleared by the [place] FDA. When there are no FDA-approved or cleared tests available, and other criteria are met, FDA can make tests available under an emergency access mechanism called an Emergency Use Authorization (EUA). The EUA for this test is supported by the [place] of Health and Human Service's declaration that [...] longer be used). Performed By: #### C [facility] ####[facility] [address] [place], [place] [address]Ny. Hu Can Pathology Noteon 07-12-2021 Pathology Note [id number] D:[address] [facility] Vital Signs Date Time Vital Sign Value Performing Clinician Facility 09-02-2022 09:30-0400 Body height 170.18 cm [facility] [employer] Other [facility] Other 09-02-2022 09:30-0400 Body mass index (BMI) [Ratio] 30.85 kg/m2 [facility] [employer] Other [facility] Other 09-02-2022 09:30-0400 Body weight 89.36 kg [facility] [employer] Other [facility] Other 04-08-2022 15:14-0500 Blood Pressure Location Morris CAGLE [facility] 04-08-2022 15:14-0500 Diastolic blood pressure 88 mm[Hg] Morris CAGLE [facility] 04-08-2022 15:14-0500 Heart rate 72 /min Morris CAGLE [facility] 04-08-2022 15:14-0500 Respiratory rate 16 /min Morris CAGLE [facility] 04-08-2022 15:14-0500 Systolic blood pressure 128 mm[Hg] Morris CAGLE [facility] [place] Encounters Encounter Date Encounter Type Care Provider Facility Start: 01-02-2023 End: 01-02-2023 ambulatory Diamond Cabraley Other [facility] Other Start: 01-02-2023 Office outpatient vi sit 15 minutes Diamond Calvey [facility] Start: 09-23-2022 End: 09-23-2022 ambulatory Diamond Calvey Other [facility] Other Start: 09-23-2022 Office outpatient vi sit 15 minutes Diamond Calvey [facility] Start: 09-02-2022 End: 09-02-2022 ambulatory Diamond Calvey Other [facility] Other Start: 09-02-2022 Office outpatient vi sit 15 minutes Diamond Calvey [facility] Start: 07-08-2022 End: 07-08-2022 ambulatory Diamond Calvey Other [facility] Other Start: 07-08-2022 Office outpatient vi sit 15 minutes Diamond Calvey [facility] Start: 06-03-2022 Office outpatient vi sit 15 minutes Diamond Calvey [facility] Start: 06-03-2022 End: 06-03-2022 ambulatory Diamond R Calvey Facility:[facility] Start: 06-03-2022 End: 06-03-2022 ambulatory MD Diamond Case Work Phone: [facility] Work Phone: Start: 06-03-2022 End: 06-03-2022 Patient encounter procedure MD Diamond Case Work Phone: [facility] Start: 05-16-2022 End: 05-17-[address] GABBY DEE . Facility:[facility] Start: 05-14-2022 End: 05-22-[address] GABBY DEE . Facility:[facility] Start: 05-07-2022 End: 05-08-2022 ambulatory Morris CAGLE Facility:CD:[id number] Start: 05-06-2022 End: 05-06-2022 ambulatory Diamond Case Other [facility] Other Start: 05-06-2022 Office outpatient ne w 30 minutes Diamond Case [facility] Start: 04-08-2022 End: 04-09-2022 ambulatory Morris CAGLE Facility:[facility] Start: 04-08-2022 End: 04-08-2022 Patient encounter procedure Morris Reena CAGLE [facility] [place] Start: 03-16-[address] GABBY DEE . Facili ty:[facility] Start: 02-26-2022 End: 02-26-[address] GABBY DEE . Facility:[facility] Start: 01-01-2022 End: 01-31-[address] GABBY DEE . Facility:[facility] Start: 12-16-2021 Encounter for genera l adult medical examination without abnormal findings DR GABBY DEE . [facility] Start: 12-13-2021 End: 12-14-[address] GABBY [...] vaccine, unspecified formulation Morris CAGLE [facility] [place] 04-30-2020 SARS-CoV-2 (COVID-19 ) Ad26 vaccine, recombinant Morris CAGLE [facility] [place] 04-02-2020 SARS-CoV-2 (COVID-19 ) Ad26 vaccine, recombinant Morris MORGANL [facility] [place] Payers Date Payer Category Payer Self-pay 2022 Unknown [id number] 2019 Unknown [id number] 1970 Unknown [id number] 2.16.8 [id number] 1970 Unknown [id number] 2.16.8 40.1.645556.3.579.2.727 1970 Unknown [id number] 2.16.84 0.1.431551.3.579.2.593 1970 Unknown [id number] 2.16.84 0.1.550705.3.579.2.593 1970 Unknown [id number] 2.16.84 0.1.801137.3.579.2.593 1970 Unknown [id number] 2.16.84 0.1.132972.3.579.2.593 1970 Unknown [id number] 2.16.84 0.1.136470.3.579.2.593 1970 Unknown [id number] 2.16.84 0.1.500422.3.579.2.593 1970 Unknown [id number] 2.16.84 0.1.720338.3.579.2.593 1970 Unknown [id number] 2.16.84 0.1.488761.3.579.2.593 1970 Unknown [id number] 2.16.84 0.1.865030.3.579.2.593 1970 Unknown [id number] 2.16.84 0.1.241629.3.579.2.593 1970 Unknown [id number] 2.16.84 0.1.345632.3.579.2.593 1959 Self-pay [id number] Unknown [id number] 2.16.8 40.1.075667.3.579.2.531 Social History Date Type Detail Facility Start: 04-08-2022 Tobacco smoking status Never s moked tobacco (finding) [facility] [place] Tobacco smoking status Never [facility] [place] Sex Assigned At Female [facility] Start: 1970 Sex Assigned At Female F [facility] Functional Status Date Assessment Result Facility 04-08-2022 Functional Status N/A General Laws [facility] Clinical Notes 12-07-2021 to 01-02-2023 Note [...] well as cortisone injection and surgical release. [facility] Other 07-11-2023 Evaluation note* Encounter Date Diagnosis [...] Left hand pain (ICD- 10 - M79.642) [facility] Other 06-20-2023 Evaluation note* Encounter Date Diagnosis [...] joint of left hand (ICD-10 - M18.12) [facility] Other 2023 Evaluation note* Encounter Date Diagnosis [...] joint of left hand (ICD-10 - M18.12) [facility] Other 03-21-2023 Evaluation note* Encounter Date Diagnosis [...] and tingle for hours after this injection. [facility] Other 03-04-2023 NotePROCEDURE: XR FOOT RT MIN [...] authenticated by: AL CAMPOS Date: 2022-05-17 12:06[id number] NoteOPERATIVE NOTE OPERATION DATE: 05/07/2022 PREOPERATIVE DIAGNOSIS: [...] in good condition. CC: Gabby Dee M.D.[facility] [id number] NoteOPERATIVE NOTE OPERATION DATE: 05/07/2022 ADDENDUM: The distal rectal 4 mm irregular flat polyp was removed with hot snare with good hemostasis, not with cold biopsy forceps.[facility] 05-06-2022 Evaluation note* Encounter Date Diagnosis Assessment [...] Apr, Right hand pain (ICD-10 - M79.641) [facility] Other 09-24-2022 NotePROCEDURE: XR SHOULDER LT 2V or > COMPARISON: None. HISTORY: Impingement syndrome of shoulder region FINDINGS: BONES:No fracture, acute abnormality, or significant arthropathy. SOFT TISSUES:Negative. No visible soft tissue swelling. EFFUSION:None visible. OTHER: Negative. IMPRESSION: No acute disease. Electronically authenticated by: AL CAMPOS Date: 2021-12-07 19:36[facility] note No data available for this section [facility] [place] Evaluation noteNo assessment information available [facility] Work Phone: History general Narrative - Reported* Type Description Date Medical History high cholesterol Surgical History Foot Surgery Surgical History clogged tear duct [facility] Other [facility] Discharge instructions No data available for this section [facility] [place] Progress note No data available for this section [facility] [place] Summary Purpose Family History No Family History [...] section and content) DATE CREATED AUTHOR [facility]2022 [facility] DATE CREATED AUTHOR AUTHOR'S ORGANIZ ATION 06/18/2022 [facility] DATE CREATED AUTHOR AUTHOR'S ORGANIZ ATION 06/21/2022 [facility] REASON FOR VISIT (unrecogniz ed [...] BE BASED ON THE PRIMARY CLINICAL RECORDS. [employer] provides no warranty or guarantee of the accuracy or completeness of information in this document.
--- NOTE | 2023-03-13 14:00 | MR_ITS ---
The [address] [address] Patient Name: THERESA JOSHUA MRN: [id number] date: 1970 Sex: F Assigned Patient Location: MRI Current Patient Location: MRI Accession/Order Number: [id number] Exam Date: 03/13/2023 14:10 Report Date: 03/13/2023 15:35 At the request of: GABBY DAO Procedure: MR cervical spine wo con EXAM: MR cervical spine without contrast. HISTORY: Cervical Disc Degeneration M50.30, Cervical Pain. Neck pain with pain into the left arm with tingling and numbness intermittently on the left. COMPARISON: Cervical spine CT from 03/12/2023. TECHNIQUE: Multiplanar and multisequence imaging of the cervical spine was performed without contrast. FINDINGS: There is straightening of the cervical lordosis. No acute fracture is identified in the cervical spine. There is moderate to severe degenerative disc disease at C4-C5, C5-C6 and C6-C7 with disc height loss and endplate spurring. No acute abnormality is identified in the posterior fossa or at the craniocervical junction. No convincing cord signal abnormality is evident given motion artifact degrading evaluation throughout the study. There is no focal abnormality involving the thyroid gland. C2-C3: There is no focal disc herniation. There is no central or foraminal stenosis. C3-C4: There is a broad-based disc-osteophyte complex asymmetric to the left measuring 5 mm in AP dimension resulting in effacement of the thecal sac and mild central narrowing with the thecal sac measuring 9 mm in AP dimension. There is moderate to severe lateral recess narrowing on the left and moderate left and mild right foraminal narrowing. C4-C5: A broad-based disc-osteophyte complex effaces the thecal sac and results in mild central narrowing with the thecal sac measuring 9 mm in AP dimension. There is lateral recess narrowing more pronounced on the right with moderate to severe right and mild to moderate left foraminal narrowing. C5-C6: There is a broad-based disc-osteophyte complex which effaces the thecal sac and results in mild central narrowing with the thecal sac measuring 9 mm in AP dimension. There is severe right and mild to moderate left foraminal narrowing. C6-C7: A 4 mm broad-based disc-osteophyte complex effaces the thecal sac and results in mild central narrowing with the thecal sac measuring 9 mm in AP dimension. There is severe bilateral foraminal narrowing. MR/MR cervical spine wo con IMPRESSION: 1. A broad-based disc-osteophyte complex at C3-C4 is asymmetric to the left resulting in mild central narrowing and moderate to severe lateral recess narrowing on the left along with moderate left and mild right foraminal narrowing. 2. A broad-based disc-osteophyte complex at C4-C5 results in mild central narrowing as well as moderate to severe right and mild to moderate left foraminal narrowing. 3. A broad-based disc-osteophyte complex at C5-C6 results in mild central narrowing as well as severe right and mild to moderate left foraminal narrowing. 4. There is also a broad-based disc-osteophyte complex at C6-C7 resulting in mild central narrowing and severe bilateral foraminal narrowing. Electronically authenticated by: GISELA GARCIA Date: 03/13/2023 15:35
== END 2023-03-13 13:05 | disposition home or self-care (01) ==
LOC: MRI 13:04
PROVIDERS: PCP Family Medicine; Visit Provider Family Medicine
DX: M50.30 Other cervical disc degeneration, unspecified cervical region (principal); M54.12 Radiculopathy, cervical region
CPT/HCPCS: 72141

== ENCOUNTER 2023-03-14 14:50 | Outpatient (RCR) | payer BC, SELFPAY ==
[2023-03-14] MEDS: METHYLPREDNISOLONE SOD SUCC 500 MG in 0.9 % SODIUM CHLORIDE 100 ML 100 MG IV (15:08)
== END 2023-03-15 23:59 | disposition home or self-care (01) ==
LOC: INF 14:50
PROVIDERS: PCP Family Medicine; Visit Provider Family Medicine
DX: M54.12 Radiculopathy, cervical region (principal)
CPT/HCPCS: 96365

== ENCOUNTER 2023-04-28 08:53 | Outpatient (OUT) | payer BC, SELFPAY ==
--- NOTE | 2023-04-28 | ECG_ITS ---
[facility] Test Date: 2023-04-28 Pat Name: THERESA JOSHUA Department: Room: - Gender: Female [employer]: : 1970 Requested By: GABBY DAO Order Number: [id number] Reading MD: TONIE COHEN Measurements Intervals [place] Rate: 78 P: 48 DE: 142 QRS: -13 QRSD: 90 T: -4 QT: 372 QTc: 424 Interpretive Statements SINUS RHYTHM VOLTAGE CRITERIA FOR LVH [MEETS CRITERIA IN ONE OF: R(aVL), S(V1), R(V5), R(V5/V6)+S(V1)] Nonspecific ST/T wave changes No previous ECG available for comparison Electronically Signed On 05-05-2023 23:06:08 EST by TONIE COHEN
--- OUTSIDE RECORDS SUMMARY | 2023-04-28 09:07 | XMS_ITS | CCD ---
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 Name Role Phone Gabby Dee Primary Care Physician [phone] Morris CAGLE Attending Unavailable JEFF, Morris Valles Attending Unavailable Diamond Case Unavailable MD Diamond Case Attending Provider Diamond Case Admitting Unavailable Diamond Case Attending Unavailable SYLIWA ., DR PIERRE Primary Care Unavailable HOY [...] Unavailable HOY ., DR PIERRE Admitting Unavailable WAVELAND, DR AL Shaikh Consulting Unavailable HOY ., [...] Unavailable HOY ., DR PIERRE Consulting Unavailable WAVELAND, DR AL Shaikh Consulting Unavailable HOY ., DR PIERRE Admitting Unavailable HOY ., DR PIERRE Attending Unavailable HOY ., DR PIERRE Primary Care Unavailable Allergies Allergy Classification Reported Allergen(s) Allergy Type Date of Onset Reaction(s) Facility (1 source) No Known Medication Allergies; Translations: [No Known Medication Allergies] Propensity to adverse reactions (disorder) [facility] Repository (2 sources) Baclofen Drug Allergy [facility] Repository Medications Current Medications Medication Drug Class(es) [...] 3V*on 023 XR hand LT min 3V* [facility] Main [address] [address] XRay Report Signed Patient: Theresa Reyes MR#: [id number] : 1970 Acct:[id number] Age/Sex: 52 / F ADM Date: 06/03/22 Loc: [facility] Room: Type: [facility] Attending Dr: Diamond Case MD Copies to: [...] Miguel Ramey M.D.06/03/2022 1:11 PM Dictation Location: [place] [address] Transcribed By: [facility] 06/03/22 1311 Dictated By: Miguel Ramey II, MD 06/03/22 1310 Signed By: 06/03/[address] [facility] XR hand LT min 3V* [facility] Submittable Other XR hand LT min 3V* [facility] Submittable Other XR hand LT min 3V* [address] [place] [address] Submittable Other XR hand LT min 3V* [place] [address] [facility] Submittable Other XR hand LT min 3V* XRay Report [facility] [employer] Other XR hand LT min 3V* Signed [facility] Other XR hand LT min 3V* Patient: Theresa Reyes MR#: [id number] [facility] [employer] Other XR hand LT min 3V* [id number] [facility] [employer] Other XR hand LT min 3V* : 1970 Acct:[id number] [facility] [employer] Other XR hand LT min 3V* Age/Sex: 52 / F ADM Date: 06/03/22 [employer] Other XR hand LT min 3V* Loc: [facility] Room: Type : [facility] [employer] Other XR hand LT min 3V* Attending Dr: Benny Case MD [employer] Other XR hand LT min 3V* Copies to: Diamond Case MD [facility] Other XR hand LT min 3V* Ordering Provider: Diamond Case MD [facility] [employer] Other XR hand LT min 3V* Date of Service: 06/03/22 [facility] Other XR hand LT min 3V* XR/XR hand LT min 3V*: PAIN [facility] Other XR hand LT min 3V* XR hand LT min 3V* 06/03/2022 8:44 AM [facility] [employer] Other XR hand LT min 3V* SIGNS AND SYMPTOMS: Left thumb/first metacarpal pain [facility] Other XR hand LT min 3V* PROTOCOL: Frontal, lateral, and oblique radiographs of the left hand: [facility] [employer] Other XR hand LT min 3V* COMPARISON: None [facility] [employer] Other XR hand LT min 3V* FINDINGS: [facility] [employer] Other XR hand LT min 3V* The bones are in anatomic alignment. There is mild degenerative change at the first carpometacarpal [employer] Other XR hand LT min 3V* junction. There is preservation of the joint spaces, otherwise. There is no fracture or dislocation. [facility] [employer] Other XR hand LT min 3V* No significant soft tissue swelling. [facility] [employer] Other XR hand LT min 3V* XR/XR hand LT min 3V* [facility] [employer] Other XR hand LT min 3V* IMPRESSION: [employer] Other XR hand LT min 3V* No acute bony injury. [facility] [employer] Other XR hand LT min 3V* Mild degenerative fa cet noted at the base of the thumb. [facility] Other XR hand LT min 3V* Impression dictated by: Miguel Ramey M.D.06/03/2022 1:11 PM [facility] [employer] Other XR hand LT min 3V* Dictation Location: [place] [address] [employer] Other XR hand LT min 3V* Transcribed By: KARRIE 06/03/22 [facility] [employer] Other XR hand LT min 3V* Dictated By: Miguel Ramey II, MD 06/03/22 [facility] [employer] Other XR hand LT min 3V* Signed By: [employer] Other XR hand LT min 3V* 06/03/[address] [place] [address] [employer] Other Rem[employer]erson 05-15-2022 Reminders - From: Jessica Mims LPN To: WILMARN - Clinical; Sent: 05/15/2022 07:57:39 EST Show up: 04/06/2025 07:00:00 EST Subject: colonoscopy recall Due Date/Time: 05/07/2025 07:00:00 EST Reminder/Recall Patient is due for colonoscopy 05/07/2025 due to history of tubulovillous adenoma. Normal [facility] Pathology Noteon 05-09-2022 Pathology Note [id number]#1.00CD :127 Normal [facility] Outside Colonoscopyon 2022 Outside Colonoscopy [id number] D:127 Normal [facility] PREG HCG QUALon 05-07-2022 , QUAL Negative Normal NEGATIVE [facility] Comment on above: Performed By: #### P REG #### [facility] [address] [place] [address] Dr. Hu Can Pre-Certification Formon Pre-Certification Form [id number] CD:127 Normal [facility] Consent for Procedure/Surger yon 04-10-2022 Consent for Procedure/Surgery [id number] D:127 Normal [facility] Facesheeton 04-10-2022 Facesheet [id number] D:127 Normal [facility] General Surgery Office/Clini c Noteon [...] SARS-CoV-2 (COVID-19) Ad26 vaccine 04/02/2020 Recorded Normal [facility] Comment on above: Result Comment: Elec tronically Signed By: JEFF PONCE, Morris Nelson\Date and Time Signed: 04/08/22 15:33 EST Covid-19 PCR (CVDTB)on 02-13 SARS-CoV-2 (COVID-19) RNA CLARISSA+probe Ql (Unsp spec) Not detected Normal NOT DETECTED [facility] Comment on above: Result Comment: When diagnostic [...] for this test is supported by the Star of Health and Human Service's declaration that [...] used). Performed By: #### C VDTB #### [facility] [address] [place] [address] Dr. Hu Can INFLUENZA A AND B [facility] 02-26 [facility] SEE BELOW Normal [facility] Comment on above: Result Comment: Nega tive for Flu A protein angiten. Infection due to Flu A cannot be ruled out. Flu A angiten in the sample may be below the detection limit of the test. Performed By: #### I NFLUAB #### [facility] [address] [place] [address] Dr. [facility] Normal [facility] Comment on above: Result Comment: Nega tive for Flu B protein antigen. Infection due to Flu B cannot be ruled out. Flu B antigen in the sample may be below the detection limit of the test. Performed By: #### I NFLUAB #### [facility] [address] [place] [address] Dr. Hu Can INFLUENZA A AG Negative Normal NEGATIVE SEE COMMENT [facility] Comment on above: Performed By: #### I NFLUAB #### [facility] [address] [place] [address] Dr. Hu Can INFLUENZA B AG Negative Normal NEGATIVE SEE COMMENT [facility] Comment on above: Performed By: #### I NFLUAB #### [facility] [address] [place] [address] Dr. Hu Can INTERNAL CONTROLS Within Normal Limits Normal Wi thin Normal Limits [facility] Comment on above: Performed By: #### I NFLUAB #### [facility] [address] [place] [address] Dr. Hu Can CBC AUTO DIFFon 12-13-2021 BASO # 0.0 103/ul Normal 0.0-0.1 [facility] Comment on above: Performed By: #### C BC #### [facility] [address] [place] [address] Dr. Hu Can Basophils/100 WBC (Bld) 0.3 % Normal 0.2-2.0 [facility] Comment on above: Performed By: #### C BC #### [facility] [address] [place] [address] Dr. Hu Can EO # 0.1 103/ul Normal 0.0-0.7 [facility] Comment on above: Performed By: #### C BC #### [facility] [address] [place] [address] Dr. Hu Can Eosinophils/100 WBC (Bld) 1.1 % Normal 0.9-7.0 [facility] Comment on above: Performed By: #### C BC #### [facility] [address] [place] [address] Dr. Hu Can Erythrocyte distribution width (RBC) [Ratio] 13.7 % Normal 11.0-15.0 [facility] Comment on above: Performed By: #### C BC #### [facility] [address] [place] [address] Dr. Hu Can Hematocrit (Bld) [Volume fraction] 44.6 % Normal 36.0-48.0 [facility] Comment on above: Performed By: #### C BC #### [facility] [address] [place] [address] Dr. Hu Can Hemoglobin (Bld) [Mass/Vol] 14.5 g/dL Normal 12.0-16.0 [facility] Comment on above: Performed By: #### C BC #### [facility] [address] [place] [address] Dr. Hu Can IG # 0.02 10e3/ul Normal 0.00-0.03 [facility] Comment on above: Performed By: #### C BC #### [facility] [address] [place] [address] Dr. Hu Can IG % 0.3 % Normal 0.0-0.5 [facility] Comment on above: Performed By: #### C BC #### [facility] [address] [place] [address] Dr. Hu Can LYMPH # 2.3 103/ul Normal 1.2-3.8 [facility] Comment on above: Performed By: #### C BC #### [facility] [address] [place] [address] Dr. Hu Can Lymphocytes/100 WBC (Bld) 30.5 % Normal 20.5-60.0 [facility] Comment on above: Performed By: #### C BC #### [facility] [address] [place] [address] Dr. Hu Can MANUAL DIFF REQ NO Normal [facility] Comment on above: Performed By: #### C BC #### [facility] [address] [place] [address] Dr. Hu Can MCH (RBC) [Entitic mass] 29.1 pg Normal 26.7-34.0 [facility] Comment on above: Performed By: #### C BC #### [facility] [address] [place] [address] Dr. Hu Can MCHC (RBC) [Mass/Vol] 32.5 g/dL Normal 29.9-35.2 [facility] Comment on above: Performed By: #### C BC #### [facility] [address] [place] [address] Dr. Hu Can MCV (RBC) [Entitic vol] 89.6 fL Normal 81.0-99.0 [facility] Comment on above: Performed By: #### C BC #### [facility] [address] [place] [address] Dr. Hu Can MONO # 0.5 103/ul Normal 0.3-0.8 [facility] Comment on above: Performed By: #### C BC #### [facility] [address] [place] [address] Dr. Hu Can Monocytes/100 WBC (Bld) 6.8 % Normal 1.7-12.0 [facility] Comment on above: Performed By: #### C BC #### [facility] [address] [place] [address] [address] Hu Can NEUT # 4.6 103/ul Normal 1.4-6.5 [facility] Comment on above: Performed By: #### C BC #### [facility] [address] [place] [address] [address] Hu Can Neutrophils/100 WBC (Bld) 61.0 % Normal 43.0-75.0 [facility] Comment on above: Performed By: #### C BC #### [facility] [address] [place] [address] [address] Hu Can Platelet mean volume (Bld) [Entitic vol] 9.3 fL Critically low 9.5-13.5 [facility] Comment on above: Performed By: #### C BC #### [facility] [address] [place] [address] Dr. Hu Can PLT 296 103/ul Normal 150-450 [facility] Comment on above: Performed By: #### C BC #### [facility] [address] [place] [address] [address] Hu Can RBC 4.98 106/ul Normal 4.20-5.40 [facility] Comment on above: Performed By: #### C BC #### [facility] [address] [place] [address] Dr. Hu Can WBC 7.5 103/ul Normal 4.0-11.0 [facility] Comment on above: Performed By: #### C BC #### [facility] [address] [place] [address] Dr. Hu Can GLYCOHEMOGLOBIN A1Con 2021 ADA RECOMMENDATION SEE BELOW Normal [facility] Comment on above: Result Comment: ADA RECOMMENDED LIMIT 4.0 - 6.0 ADA THERAPEUTIC TARGET < 7.0 ACTION SUGGESTED > 7.0 Performed By: #### A 1C #### [facility] [address] [place] [address] Dr. Hu Can Glucose [Mass/Vol] 114 mg/dL Normal [facility] Comment on above: Performed By: #### A 1C #### [facility] [address] [place], [place] [address] Dr. Hu Can HbA1c (Bld) [Mass fraction] 5.6 % Normal 4.5-6.2 [facility] Comment on above: Performed By: #### A 1C #### [facility] [address] [place], [place] [address] Dr. Hu Can LIPID PROFILEon 12-13-2021 CHOL-HDL RATIO NORM SEE BELOW Normal [facility] Comment on above: Result Comment: 3.3 - 4.4 LOW RISK 4.4 - 7.1 AVERAGE RISK 7.1 - 11.0 MODERATE RISK >11.0 HIGH RISK Performed By: #### T ABDI, CMP, LIPID ####[facility] [address] [place] [address]Dr. Hu Can Cholesterol [Mass/Vol] 279 mg/dL Critically high <=200 [facility] Comment on above: Performed By: #### T ABDI, CMP, LIPID ####[facility] [address] [place] [address]Dr. Hu Can Cholesterol in HDL [Mass/Vol] 50 mg/dL Normal 40-60 [facility] Comment on above: Performed By: #### T ABDI, CMP, LIPID ####[facility] [address] [place], [place] [address]Nl. Hu Can Cholesterol in LDL [Mass/Vol] 197.8 mg/dL Normal [facility] Comment on above: Performed By: #### T ABDI, CMP, LIPID ####[facility] [address] [place], [place] [address]Bv. Hu Can Cholesterol.total/ Cholesterol in HDL [Mass ratio] 5.6 {ratio} Normal [facility] Comment on above: Performed By: #### T ABDI, CMP, LIPID ####[facility] [address] [place], [place] [address]Ov. Hu Can HDL NORMAL > or = 60 mg/dl - LO W CARDIOVASCULAR RISK <40 mg/dl - HIGH CARDIOVASCULAR RISK Normal [facility] Comment on above: Performed By: #### T SH, CMP, LIPID ####[facility] [address] [place] [address]Dr. Hu Can LDL CALC NORMAL SEE BELOW Normal [facility] Comment on above: Result Comment: <100 mg/dl OPTIMAL 100 - 129 mg/dl NEAR OR ABOVE OPTIMAL 130 - 159 mg/dl BORDERLINE HIGH 160 - 189 mg/dl HIGH >190 mg/dl VERY HIGH Performed By: #### T SH, CMP, LIPID ####[facility] [address] [place] [address]Dr. Hu Can Triglyceride [Mass/Vol] 156 mg/dL Critically high <=150 [facility] Comment on above: Performed By: #### T ABDI, CMP, LIPID ####[facility] [address] [place] [address]Dr. Hu Can VLDL CALC 31.2 mg/dL Normal [facility] Comment on above: Performed By: #### T ABDI, CMP, LIPID ####[facility] [address] [place] [address]Dr. Hu Can PROF 14(COMP METB)on 022 Albumin [Mass/Vol] 3.8 g/dL Normal 3.4-5.0 [facility] Comment on above: Performed By: #### T ABDI, CMP, LIPID ####[facility] [address] [place] [address]Dr. Hu Can Albumin/Globulin [Mass ratio] 1.2 {ratio} Normal [facility] Comment on above: Performed By: #### T SH, CMP, LIPID ####[facility] [address] [place] [address]Dr. Hu Can ALP [Catalytic activity/Vol] 74 U/L Normal 46-116 [facility] Comment on above: Performed By: #### T SH, CMP, LIPID ####[facility] [address] [place] [address]Dr. Hu Can ALT [Catalytic activity/Vol] 19 U/L Normal 14-59 [facility] Comment on above: Performed By: #### T SH, CMP, LIPID ####[facility] [address] [place] [address]Dr. Hu Can Anion gap [Moles/Vol] 11.0 mmol/L Normal [facility] Comment on above: Performed By: #### T SH, CMP, LIPID ####[facility] [address] [place] [address]Dr. Hu Can AST [Catalytic activity/Vol] 12 U/L Critically low 15-37 [facility] Comment on above: Performed By: #### T SH, CMP, LIPID ####[facility] [address] [place] [address]Dr. Hu Can Bilirubin [Mass/Vol] 0.7 mg/dL Normal 0.2-1.0 [facility] Comment on above: Performed By: #### T SH, CMP, LIPID ####[facility] [address] [place] [address]Dr. Hu Can Calcium [Mass/Vol] 8.7 mg/dL Normal 8.5-10.1 [facility] Comment on above: Performed By: #### T SH, CMP, LIPID ####[facility] [address] [place] [address]Dr. Hu Can Chloride [Moles/Vol] 102 mmol/L Normal 98-107 [facility] Comment on above: Performed By: #### T SH, CMP, LIPID ####[facility] [address] [place] [address]Dr. Hu Can CO2 [Moles/Vol] 28.2 mmol/L Normal 21.0-32.0 [facility] Comment on above: Performed By: #### T SH, CMP, LIPID ####[facility] [address] [place] [address]Dr. Hu Can Creatinine [Mass/Vol] 0.91 mg/dL Normal 0.55-1.02 [facility] Comment on above: Performed By: #### T SH, CMP, LIPID ####[facility] [address] [place] [phone]. Hu Can EGFR-AF MALAWIAN >60 Normal >=60 [facility] Comment on above: Performed By: #### T SH, CMP, LIPID ####[facility] [address] [place] [address]Dr. Ellikaila Can EGFR-NON AF MALAWIAN >60 Normal >=60 [facility] Comment on above: Performed By: #### T SH, CMP, LIPID ####[facility] [address] [place] [address]Dr. Hu Can Globulin (S) [Mass/Vol] 3.3 g/dL Normal [facility] Comment on above: Performed By: #### T SH, CMP, LIPID ####[facility] [address] [place] [address]Dr. Hu Can Glucose [Mass/Vol] 105 mg/dL Normal 74-106 [facility] Comment on above: Performed By: #### T SH, CMP, LIPID ####[facility] [address] [place] [address]Dr. Hu Can Potassium [Moles/Vol] 4.2 mmol/L Normal 3.5-5.1 [facility] Comment on above: Performed By: #### T SH, CMP, LIPID ####[facility] [address] [place] [address]Dr. Hu Can Protein [Mass/Vol] 7.1 g/dL Normal 6.4-8.2 [facility] Comment on above: Performed By: #### T SH, CMP, LIPID ####[facility] [address] [place] [address]Dr. Ellikaila Can Sodium [Moles/Vol] 137 mmol/L Normal 136-145 [facility] Comment on above: Performed By: #### T SH, CMP, LIPID ####[facility] [address] [place] [address]Dr. Hu Can Urea nitrogen [Mass/Vol] 23.0 mg/dL Critically high 7.0-18.0 [facility] Comment on above: Performed By: #### T SH, CMP, LIPID ####[facility] [address] [place] [address]Dr. Hu Can Urea nitrogen/Creatinin e [Mass ratio] 25.3 mg/mg Normal [facility] Comment on above: Performed By: #### T ABDI, CMP, LIPID ####[facility] [address] [place], [place] [address]Kz. Hu Can TSHon 12-13-2021 TSH 1.249 uIU/mL Normal 0.358-3.740 [facility] Comment on above: Performed By: #### T ABDI, CMP, LIPID ####[facility] [address] [place], [place] [address]Fs. Hu Can XR CSPINE MIN 4 VIEWSon [...] AL CAMPOS Date: 2021-12-07 19:38 Normal [facility] MG MAMM SCREEN 3D HIEU CADon 10-28-2021 MG MAMM SCREEN 3D HIEU CAD Patient: THERESA REYES Exam Date: 10/28/2021 : 1970 Gender:F Ordering : DR GABBY DEE . Admission #: [id number] Family : Order #: [id number] CLICK HERE TO VIEW EXAM RADIOLOGY REPORT [...] ovarian cancer at age 80. LOCATION: [facility] BREAST COMPOSITION: Scattered areas fibroglandular density. FINDINGS: [...] M.D. on 10/28/2021 at 12:02 Normal [facility] Covid-19 PCR (CVDTB)on 09-15 SARS-CoV-2 (COVID-19) RNA CLARISSA+probe Ql (Unsp spec) Not detected Normal NOT DETECTED [facility] Comment on above: Result Comment: When diagnostic [...] for this test is supported by the [employer] Burner of Health and Human Service's declaration that [...] used). Performed By: #### C VDTB #### [facility] [address] [place] [address] Dr. Hu Can Covid-19 PCR (CVDTB)on 09-14 SARS-CoV-2 (COVID-19) RNA CLARISSA+probe Ql (Unsp spec) Detected Critically abnormal NOT DETECTED [facility] Comment on above: Result Comment: This test is not yet approved or cleared by the [place] FDA. When there are no FDA-approved or cleared tests available, and other criteria are met, FDA can make tests available under an emergency access mechanism called an Emergency Use Authorization (EUA). The EUA for this test is supported by the Star of Health and Human Service's declaration that [...] longer be used). Performed By: #### C [facility] ####[facility] [address] [place], [place] [address]Ob. Hu Can Pathology Noteon 07-12-2021 Pathology Note [id number] D:127 Normal [facility] Vital Signs Date Time Vital Sign Value Performing Clinician Facility 09-02-2022 09:30-0400 Body height 170.18 cm Diamond [facility] Other [facility] Other 09-02-2022 09:30-0400 Body mass index (BMI) [Ratio] 30.85 kg/m2 Diamond [facility] Other [facility] Other 09-02-2022 09:30-0400 Body weight 89.36 kg Diamond [facility] Other [facility] Other 04-08-2022 15:14-0500 Blood Pressure Location Morris CAGLE [facility] 04-08-2022 15:14-0500 Diastolic blood pressure 88 mm[Hg] Morris CAGLE [facility] 04-08-2022 15:14-0500 Heart rate 72 /min Morris CAGLE [facility] 04-08-2022 15:14-0500 Respiratory rate 16 /min Morris CAGLE [facility] 04-08-2022 15:14-0500 Systolic blood pressure 128 mm[Hg] Morris CAGLE [facility] [place] Encounters Encounter Date Encounter Type Care Provider Facility Start: 01-02-2023 End: 01-02-2023 ambulatory Diamond Cabraley Other [facility] Other Start: 01-02-2023 Office outpatient vi sit 15 minutes Diamond Calvey [facility] Start: 09-23-2022 End: 09-23-2022 ambulatory Diamond Calvey Other [facility] Other Start: 09-23-2022 Office outpatient vi sit 15 minutes Diamond Calvey [facility] Start: 09-02-2022 End: 09-02-2022 ambulatory Diamond Calvey Other [facility] Other Start: 09-02-2022 Office outpatient vi sit 15 minutes Diamond Calvey [facility] Start: 07-08-2022 End: 07-08-2022 ambulatory Diamond Calvey Other [facility] Other Start: 07-08-2022 Office outpatient vi sit 15 minutes Diamond Calvey [facility] Start: 06-03-2022 Office outpatient vi sit 15 minutes Diamond Calvey [facility] Start: 06-03-2022 End: 06-03-2022 ambulatory Diamond R Calvey Facility:[facility] Start: 06-03-2022 End: 06-03-2022 ambulatory MD Diamond Case Work Phone: [facility] Work Phone: Start: 06-03-2022 End: 06-03-2022 Patient encounter procedure MD Diamond Case Work Phone: [facility] Start: 05-16-2022 End: 05-17-[address] GABBY DEE . Facility:[facility] Start: 05-14-2022 End: 05-22-[address] GABBY DEE . Facility:[facility] Start: 05-07-2022 End: 05-08-2022 ambulatory Morris CAGLE Facility:CD:[id number] Start: 05-06-2022 End: 05-06-2022 ambulatory Diamond Case Other [facility] Other Start: 05-06-2022 Office outpatient ne w 30 minutes Diamond Case [facility] Start: 04-08-2022 End: 04-09-2022 ambulatory Morris CAGLE Facility:[facility] Start: 04-08-2022 End: 04-08-2022 Patient encounter procedure Morris Reena CAGLE [facility] [place] Start: 03-16-[address] GABBY DEE . Facili ty:[facility] Start: 02-26-2022 End: 02-26-[address] GABBY DEE . Facility:[facility] Start: 01-01-2022 End: 01-31-[address] GABBY DEE . Facility:[facility] Start: 12-16-2021 Encounter for genera l adult medical examination without abnormal findings DR GABBY DEE . [facility] Start: 12-13-2021 End: 12-14-[address] GABBY [...] vaccine, unspecified formulation Morris CAGLE [facility] [place] 04-30-2020 SARS-CoV-2 (COVID-19 ) Ad26 vaccine, recombinant Morris CAGLE [facility] [place] 04-02-2020 SARS-CoV-2 (COVID-19 ) Ad26 vaccine, recombinant Morris MORGANL [facility] [place] Payers Date Payer Category Payer Self-pay 2022 Unknown [id number] 2019 Unknown [id number] 1970 Unknown [id number] 2.16.8 [id number] 1970 Unknown [id number] 2.16.8 40.1.157593.3.579.2.727 1970 Unknown [id number] 2.16.84 0.1.742343.3.579.2.593 1970 Unknown [id number] 2.16.84 0.1.587587.3.579.2.593 1970 Unknown [id number] 2.16.84 0.1.070155.3.579.2.593 1970 Unknown [id number] 2.16.84 0.1.489905.3.579.2.593 1970 Unknown [id number] 2.16.84 0.1.576453.3.579.2.593 1970 Unknown [id number] 2.16.84 0.1.057448.3.579.2.593 1970 Unknown [id number] 2.16.84 0.1.894412.3.579.2.593 1970 Unknown [id number] 2.16.84 0.1.159222.3.579.2.593 1970 Unknown [id number] 2.16.84 0.1.478082.3.579.2.593 1970 Unknown [id number] 2.16.84 0.1.376064.3.579.2.593 1970 Unknown [id number] 2.16.84 0.1.847849.3.579.2.593 1959 Self-pay [id number] Unknown [id number] 2.16.8 40.1.466577.3.579.2.531 Social History Date Type Detail Facility Start: 04-08-2022 Tobacco smoking status Never s moked tobacco (finding) [facility] [place] Tobacco smoking status Never Gener al Surgery Diamond Sex Assigned At Female [facility] Start: 1970 Sex Assigned At Female [facility] Functional Status Date Assessment Result Facility 04-08-2022 Functional Status N/A General Laws [facility] Clinical Notes 12-07-2021 to 01-02-2023 Note Date [...] well as cortisone injection and surgical release. [facility] Other 07-11-2023 Evaluation note* Encounter Date Diagnosis [...] Left hand pain (ICD- 10 - M79.642) [facility] Other 06-20-2023 Evaluation note* Encounter Date Diagnosis [...] joint of left hand (ICD-10 - M18.12) [facility] Other 2023 Evaluation note* Encounter Date Diagnosis [...] joint of left hand (ICD-10 - M18.12) [facility] Other 03-21-2023 Evaluation note* Encounter Date Diagnosis [...] and tingle for hours after this injection. [facility] Other 03-04-2023 NotePROCEDURE: XR FOOT RT MIN [...] authenticated by: AL CAMPOS Date: 2022-05-17 12:06[id number] NoteOPERATIVE NOTE OPERATION DATE: 05/07/2022 PREOPERATIVE DIAGNOSIS: [...] in good condition. CC: Gabby Dee M.D.[facility] [id number] NoteOPERATIVE NOTE OPERATION DATE: 05/07/2022 ADDENDUM: The distal rectal 4 mm irregular flat polyp was removed with hot snare with good hemostasis, not with cold biopsy forceps.[facility] 05-06-2022 Evaluation note* Encounter Date Diagnosis Assessment [...] Apr, Right hand pain (ICD-10 - M79.641) [facility] Other 09-24-2022 NotePROCEDURE: XR SHOULDER LT 2V or > COMPARISON: None. HISTORY: Impingement syndrome of shoulder region FINDINGS: BONES:No fracture, acute abnormality, or significant arthropathy. SOFT TISSUES:Negative. No visible soft tissue swelling. EFFUSION:None visible. OTHER: Negative. IMPRESSION: No acute disease. Electronically authenticated by: AL CAMPOS Date: 2021-12-07 19:36[facility] note No data available for this section [facility] [place] Evaluation noteNo assessment information available [facility] Work Phone: History general Narrative - Reported* Type Description Date Medical History high cholesterol Surgical History Foot Surgery Surgical History clogged tear duct [facility] Other Hospital Discharge instructions No data available for this section [facility] [place] Progress note No data available for this section [facility] [place] Summary Purpose Family History No Family History [...] section and content) DATE CREATED AUTHOR [facility]20[facility] DATE CREATED AUTHOR AUTHOR'S ORGANIZ ATION 06/18/2022 [facility] DATE CREATED AUTHOR AUTHOR'S ORGANIZ ATION 06/21/2022 [facility] REASON FOR VISIT (unrecogniz ed [...] BE BASED ON THE PRIMARY CLINICAL RECORDS. [employer] provides no warranty or guarantee of the accuracy or completeness of information in this document.
[2023-04-28 09:25] LABS: Basophils Absolute Auto 0.1 10^3/uL (0.0-0.1); Basophils Percent Auto 1.3 % (0.2-2.0); Eosinophils Absolute Auto 0.8 10^3/uL (0.0-0.7); Eosinophils Percent Auto 13.9 % (0.9-7.0); Hematocrit 44.2 % (36.0-48.0); Hemoglobin 14.4 g/dL (12.0-16.0); Immature Granulocytes Abs Auto 0.01 10^3/uL (0.00-0.03); Immature Granulocytes Pct Auto 0.2 % (0.0-0.5); Lymphocytes Absolute Auto 1.9 10^3/uL (1.2-3.8); Lymphocytes Percent Auto 34.6 % (20.5-60.0); Mean Corpuscular HGB Conc 32.6 g/dL (29.9-35.2); Mean Corpuscular Hemoglobin 28.5 pg (26.7-34.0); Mean Corpuscular Volume 87.4 fL (81.0-99.0); Mean Platelet Volume 9.9 fL (9.5-13.5); Monocytes Absolute Auto 0.5 10^3/uL (0.3-0.8); Monocytes Percent Auto 9.4 % (1.7-12.0); Neutrophils Absolute Auto 2.2 10^3/uL (1.4-6.5); Neutrophils Percent Auto 40.6 % (43.0-75.0); Platelet Count 301 10^3/uL (150-450); Red Blood Count 5.06 10^6/uL (4.20-5.40); Red Cell Distribution Width 12.6 % (11.0-15.0); White Blood Count 5.5 10^3/uL (4.0-11.0)
--- NOTE | 2023-04-28 09:27 | XR_ITS ---
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 CLINICAL INDICATION: 53 years Female other cervical disc degeneration M50.31 FINDINGS: The cardiomediastinal silhouette and pulmonary vasculature are within normal limits. The lungs are clear. There is no evidence of pleural effusion or pneumothorax. XR/XR chest 2V IMPRESSION: Chest radiograph is within normal limits. Electronically authenticated by: MARCUS GAMA Date: 04/28/2023 09:59
[2023-04-28 10:13] LABS: INR 0.93; Partial Thromboplastin Time 29.6 sec (22.3-36.2); Prothrombin Time 9.9 sec (9.0-11.6)
[2023-04-28 10:39] LABS: Anion Gap 9.5; BUN Creatinine Ratio 21.4; Calcium 8.9 mg/dL (8.5-10.1); Carbon Dioxide 31.5 mmol/L (21.0-32.0); Chloride 104 mmol/L (98-107); Estimated GFR (African America >60 (>=60); Estimated GFR (Non-African Ame >60 (>=60); Glucose 119 mg/dL (74-106); Sodium 141 mmol/L (136-145)
== END 2023-04-28 08:54 | disposition home or self-care (01) ==
LOC: LAB 08:54
PROVIDERS: PCP Family Medicine
DX: R73.01 Impaired fasting glucose (principal); M50.31 Other cervical disc degeneration, high cervical region
CPT/HCPCS: 36415; 71046; 80048; 83036; 85025; 85610; 85730; 87081; 93005

== ENCOUNTER 2023-04-28 09:00 | Outpatient (REF) | payer BC, SELFPAY ==
--- OUTSIDE RECORDS SUMMARY | 2023-04-29 08:44 | XMS_ITS | CCD ---
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 Name Role Phone Gabby Dee Primary [...] DR PIERRE Consulting Unavailable ZIEBER, DR KAN Vallse Consulting Unavailable LEEANNE BRADLEY Consulting Unavailable LEEANNE [...] Unavailable HOY ., DR PIERRE Admitting Unavailable OSGOOD, DR AL Shaikh Consulting Unavailable HOY ., [...] Unavailable HOY ., DR PIERRE Consulting Unavailable OSGOOD, DR AL Shaikh Consulting Unavailable HOY ., DR PIERRE Admitting Unavailable HOY ., DR PIERRE Attending Unavailable HOY ., DR PIERRE Primary Care Unavailable Allergies Allergy Classification Reported Allergen(s) Allergy Type Date of Onset Reaction(s) Facility (1 source) No Known Medication Allergies; Translations: [No Known Medication Allergies] Propensity to adverse reactions (disorder) [facility] Repository (2 sources) Baclofen Drug Allergy [facility] Repository Medications Current Medications Medication Drug [...] 3V*on 023 XR hand LT min 3V* [facility] Main [address] [address] XRay Report Signed Patient: Theresa Reyes MR#: [id number] : 1970 Acct:[id number] Age/Sex: 52 / F ADM Date: 06/03/22 Loc: [facility] [place]: Type: [facility] Attending Dr: [...] Miguel Ramey M.D.06/03/2022 1:11 PM Dictation Location: [place] [address] Transcribed By: [facility] 06/03/22 1311 Dictated By: Miguel Ramey II, MD 06/03/22 1310 Signed By: 06/03/22 1311 Normal [facility] XR hand LT min 3V* [facility] [place] [facility] Other XR hand LT min 3V* [facility] Other XR hand LT min 3V* [address] [place] [address] [employer] Other XR hand LT min 3V* [place] [address] [facility] [employer] Other XR hand LT min 3V* XRay Report [facility] Other XR hand LT min 3V* Signed [facility] Other XR hand LT min 3V* Patient: Theresa Reyes MR#: [id number] [facility] Other XR hand LT min 3V* [id number] [facility] Other XR hand LT min 3V* : 1970 Acct:[id number] [facility] Other XR hand LT min 3V* Age/Sex: 52 / F ADM Date: 06/03/22 [facility] Other XR hand LT min 3V* Loc: [facility] Room: Type : [facility] Other XR hand LT min 3V* Attending Dr: Benny Case MD [facility] Other XR hand LT min 3V* Copies to: Diamond Case MD [facility] Other XR hand LT min 3V* Ordering Provider: Diamond Case MD [facility] Other XR hand LT min 3V* Date of Service: 06/03/22 [facility] Other XR hand LT min 3V* XR/XR hand LT min 3V*: PAIN [facility] Other XR hand LT min 3V* XR hand LT min 3V* 06/03/2022 8:44 AM [facility] Other XR hand LT min 3V* SIGNS AND SYMPTOMS: Left thumb/first metacarpal pain [facility] Other XR hand LT min 3V* PROTOCOL: Frontal, lateral, and oblique radiographs of the left hand: [facility] Other XR hand LT min 3V* COMPARISON: None [facility] Other XR hand LT min 3V* FINDINGS: [facility] Other XR hand LT min 3V* The bones are in anatomic alignment. There is mild degenerative change at the first carpometacarpal [facility] Other XR hand LT min 3V* junction. There is preservation of the joint spaces, otherwise. There is no fracture or dislocation. [facility] Other XR hand LT min 3V* No significant soft tissue swelling. [facility] Other XR hand LT min 3V* XR/XR hand LT min 3V* [facility] Other XR hand LT min 3V* IMPRESSION: [facility] Other XR hand LT min 3V* No acute bony injury. [facility] Other XR hand LT min 3V* Mild degenerative fa cet noted at the base of the thumb. [facility] Other XR hand LT min 3V* Impression dictated by: Miguel Ramey M.D.06/03/2022 1:11 PM [facility] Other XR hand LT min 3V* Dictation Location: [place] [address] [facility] Other XR hand LT min 3V* Transcribed By: KARRIE 06/03/22 [facility] Other XR hand LT min 3V* Dictated By: Miguel Ramey II, MD 06/03/22 [facility] Other XR hand LT min 3V* Signed By: [facility] Other XR hand LT min 3V* 06/03/[address] [place] [address] [email or web address] Other [employer] 05-15-2022 Reminders - From: Jessica Mims LPN To: WILMARN - Clinical; Sent: 05/15/2022 07:57:39 EST Show up: 04/06/2025 07:00:00 EST Subject: colonoscopy recall Due Date/Time: 05/07/2025 07:00:00 EST Reminder/Recall Patient is due for colonoscopy 05/07/2025 due to history of tubulovillous adenoma. Normal [facility] Pathology Noteon 05-09-2022 Pathology Note [id number]#1.00CD :127 Normal [facility] Outside Colonoscopyon 2022 Outside Colonoscopy [id number]#1.00C D:127 Normal [facility] PREG HCG QUALon 05-07-2022 , QUAL Negative Normal NEGATIVE [facility] Comment on above: Performed By: #### P REG #### [facility] [address] [place] [address] Dr. Hu Can Pre-Certification Formon Pre-Certification Form [id number]#1.00 CD:127 Normal [facility] Consent for Procedure/Surger yon 04-10-2022 Consent for Procedure/Surgery [id number]#1.00C D:127 Normal [facility] Facesheeton 04-10-2022 Facesheet [id number]#1.00C D:127 Normal [facility] General Surgery Office/Clini c Noteon 04-08-2022 [...] SARS-CoV-2 (COVID-19) Ad26 vaccine 04/02/2020 Recorded Normal [facility] Comment on above: Result Comment: Elec tronically Signed By: JEFF PONCE, Morris Nelson\Date and Time Signed: 04/08/22 15:33 EST Covid-19 PCR (CVDTB)on 02-13 SARS-CoV-2 (COVID-19) RNA CLARISSA+probe Ql (Unsp spec) Not detected Normal NOT DETECTED [facility] Comment on above: Result Comment: When [...] for this test is supported by the [place] of Health and Human Service's declaration that [...] used). Performed By: #### C VDTB #### [facility] [address] [place] [address] Dr. Hu Can INFLUENZA A AND B [facility] 02-26 [facility] SEE BELOW Normal [facility] Comment on above: Result Comment: Nega tive for Flu A protein angiten. Infection due to Flu A cannot be ruled out. Flu A angiten in the sample may be below the detection limit of the test. Performed By: #### I NFLUAB #### [facility] [address] [place] [address] Dr. Hu Can [facility] SEE BELOW Normal [facility] Comment on above: Result Comment: Nega tive for Flu B protein antigen. Infection due to Flu B cannot be ruled out. Flu B antigen in the sample may be below the detection limit of the test. Performed By: #### I NFLUAB #### [facility] [address] [place] [address] Dr. Hu Can INFLUENZA A AG Negative Normal NEGATIVE SEE COMMENT [facility] Comment on above: Performed By: #### I NFLUAB #### [facility] [address] [place] [address] Dr. Hu Can INFLUENZA B AG Negative Normal NEGATIVE SEE COMMENT [facility] Comment on above: Performed By: #### I NFLUAB #### [facility] [address] [place] [address] Dr. Hu Can INTERNAL CONTROLS Within Normal Limits Normal Wi thin Normal Limits [facility] Comment on above: Performed By: #### I NFLUAB #### [facility] [address] [place] [address] Dr. Hu Can CBC AUTO DIFFon 12-13-2021 BASO # 0.0 103/ul Normal 0.0-0.1 [facility] Comment on above: Performed By: #### C BC #### [facility] [address] [place] [address] Dr. Hu Can Basophils/100 WBC (Bld) 0.3 % Normal 0.2-2.0 [facility] Comment on above: Performed By: #### C BC #### [facility] [address] [place] [address] Dr. Hu Can EO # 0.1 103/ul Normal 0.0-0.7 [facility] Comment on above: Performed By: #### C BC #### [facility] [address] [place] [address] Dr. Hu Can Eosinophils/100 WBC (Bld) 1.1 % Normal 0.9-7.0 [facility] Comment on above: Performed By: #### C BC #### [facility] [address] [place] [address] Dr. Hu Can Erythrocyte distribution width (RBC) [Ratio] 13.7 % Normal 11.0-15.0 [facility] Comment on above: Performed By: #### C BC #### [facility] [address] [place] [address] Dr. Hu Can Hematocrit (Bld) [Volume fraction] 44.6 % Normal 36.0-48.0 [facility] Comment on above: Performed By: #### C BC #### [facility] [address] [place] [address] Dr. Hu Can Hemoglobin (Bld) [Mass/Vol] 14.5 g/dL Normal 12.0-16.0 [facility] Comment on above: Performed By: #### C BC #### [facility] [address] [place] [address] Dr. Hu Can IG # 0.02 10e3/ul Normal 0.00-0.03 [facility] Comment on above: Performed By: #### C BC #### [facility] [address] [place] [address] Dr. Hu Can IG % 0.3 % Normal 0.0-0.5 [facility] Comment on above: Performed By: #### C BC #### [facility] [address] [place] [address] Dr. Hu Can LYMPH # 2.3 103/ul Normal 1.2-3.8 [facility] Comment on above: Performed By: #### C BC #### [facility] [address] [place] [address] Dr. Hu Can Lymphocytes/100 WBC (Bld) 30.5 % Normal 20.5-60.0 [facility] Comment on above: Performed By: #### C BC #### [facility] [address] [place] [address] Dr. Hu Can MANUAL DIFF REQ NO Normal [facility] Comment on above: Performed By: #### C BC #### [facility] [address] [place] [address] Dr. Hu Can MCH (RBC) [Entitic mass] 29.1 pg Normal 26.7-34.0 [facility] Comment on above: Performed By: #### C BC #### [facility] [address] [place] [address] Dr. Hu Can MCHC (RBC) [Mass/Vol] 32.5 g/dL Normal 29.9-35.2 [facility] Comment on above: Performed By: #### C BC #### [facility] [address] [place] [address] Dr. Hu Can MCV (RBC) [Entitic vol] 89.6 fL Normal 81.0-99.0 [facility] Comment on above: Performed By: #### C BC #### [facility] [address] [place] [address] Dr. Hu Can MONO # 0.5 103/ul Normal 0.3-0.8 [facility] Comment on above: Performed By: #### C BC #### [facility] [address] [place] [address] Dr. Hu Can Monocytes/100 WBC (Bld) 6.8 % Normal 1.7-12.0 [facility] Comment on above: Performed By: #### C BC #### [facility] [address] [place] [address] [address] Hu Can NEUT # 4.6 103/ul Normal 1.4-6.5 [facility] Comment on above: Performed By: #### C BC #### [facility] [address] [place] [address] [address] Hu Can Neutrophils/100 WBC (Bld) 61.0 % Normal 43.0-75.0 [facility] Comment on above: Performed By: #### C BC #### [facility] [address] [place] [address] [address] Hu Can Platelet mean volume (Bld) [Entitic vol] 9.3 fL Critically low 9.5-13.5 [facility] Comment on above: Performed By: #### C BC #### [facility] [address] [place] [address] Dr. Hu Can PLT 296 103/ul Normal 150-450 [facility] Comment on above: Performed By: #### C BC #### [facility] [address] [place] [address] [address] Hu Can RBC 4.98 106/ul Normal 4.20-5.40 [facility] Comment on above: Performed By: #### C BC #### [facility] [address] [place] [address] Dr. Hu Can WBC 7.5 103/ul Normal 4.0-11.0 [facility] Comment on above: Performed By: #### C BC #### [facility] [address] [place] [address] Dr. Hu Can GLYCOHEMOGLOBIN A1Con 2021 ADA RECOMMENDATION SEE BELOW Normal [facility] Comment on above: Result Comment: ADA RECOMMENDED LIMIT 4.0 - 6.0 ADA THERAPEUTIC TARGET < 7.0 ACTION SUGGESTED > 7.0 Performed By: #### A 1C #### [facility] [address] [place] [address] Dr. Hu aCn Glucose [Mass/Vol] 114 mg/dL Normal [facility] Comment on above: Performed By: #### A 1C #### [facility] [address] [place], [place] [address] Dr. Hu Can HbA1c (Bld) [Mass fraction] 5.6 % Normal 4.5-6.2 [facility] Comment on above: Performed By: #### A 1C #### [facility] [address] [place], [place] [address] Dr. Hu Can LIPID PROFILEon 12-13-2021 CHOL-HDL RATIO NORM SEE BELOW Normal [facility] Comment on above: Result Comment: 3.3 - 4.4 LOW RISK 4.4 - 7.1 AVERAGE RISK 7.1 - 11.0 MODERATE RISK >11.0 HIGH RISK Performed By: #### T ABDI, CMP, LIPID ####[facility] [address] [place] [id number]. Hu Can Cholesterol [Mass/Vol] 279 mg/dL Critically high <=200 [facility] Comment on above: Performed By: #### T ABDI, CMP, LIPID ####[facility] [address] [place] [id number]. Hu Can Cholesterol in HDL [Mass/Vol] 50 mg/dL Normal 40-60 [facility] Comment on above: Performed By: #### T ABDI, CMP, LIPID ####[facility] [address] [place], [place] [address]Ix. Hu Can Cholesterol in LDL [Mass/Vol] 197.8 mg/dL Normal [facility] Comment on above: Performed By: #### T ABDI, CMP, LIPID ####[facility] [address] [place], [place] [address]Lu. Hu Can Cholesterol.total/ Cholesterol in HDL [Mass ratio] 5.6 {ratio} Normal [facility] Comment on above: Performed By: #### T ABDI, CMP, LIPID ####[facility] [address] [place], [place] [address]Rm. Hu Can HDL NORMAL > or = 60 mg/dl - LO W CARDIOVASCULAR RISK <40 mg/dl - HIGH CARDIOVASCULAR RISK Normal [facility] Comment on above: Performed By: #### T SH, CMP, LIPID ####[facility] [address] [place] [address]Dr. Hu Can LDL CALC NORMAL SEE BELOW Normal [facility] Comment on above: Result Comment: <100 mg/dl OPTIMAL 100 - 129 mg/dl NEAR OR ABOVE OPTIMAL 130 - 159 mg/dl BORDERLINE HIGH 160 - 189 mg/dl HIGH >190 mg/dl VERY HIGH Performed By: #### T SH, CMP, LIPID ####[facility] [address] [place] [address]Dr. Hu Can Triglyceride [Mass/Vol] 156 mg/dL Critically high <=150 [facility] Comment on above: Performed By: #### T ABDI, CMP, LIPID ####[facility] [address] [place] [address]Dr. Hu Can VLDL CALC 31.2 mg/dL Normal [facility] Comment on above: Performed By: #### T ABDI, CMP, LIPID ####[facility] [address] [place] [address]Dr. Hu Can PROF 14(COMP METB)on 022 Albumin [Mass/Vol] 3.8 g/dL Normal 3.4-5.0 [facility] Comment on above: Performed By: #### T ABDI, CMP, LIPID ####[facility] [address] [place] [address]Dr. Hu Can Albumin/Globulin [Mass ratio] 1.2 {ratio} Normal [facility] Comment on above: Performed By: #### T SH, CMP, LIPID ####[facility] [address] [place] [address]Dr. Hu Can ALP [Catalytic activity/Vol] 74 U/L Normal 46-116 [facility] Comment on above: Performed By: #### T SH, CMP, LIPID ####[facility] [address] [place] [address]Dr. Hu Can ALT [Catalytic activity/Vol] 19 U/L Normal 14-59 [facility] Comment on above: Performed By: #### T SH, CMP, LIPID ####[facility] [address] [place] [id number]. Hu Can Anion gap [Moles/Vol] 11.0 mmol/L Normal [facility] Comment on above: Performed By: #### T SH, CMP, LIPID ####[facility] [address] [place] [id number]. Hu Can AST [Catalytic activity/Vol] 12 U/L Critically low 15-37 [facility] Comment on above: Performed By: #### T SH, CMP, LIPID ####[facility] [address] [place] [id number]. Hu Can Bilirubin [Mass/Vol] 0.7 mg/dL Normal 0.2-1.0 [facility] Comment on above: Performed By: #### T SH, CMP, LIPID ####[facility] [address] [place] [address]Dr. Hu Can Calcium [Mass/Vol] 8.7 mg/dL Normal 8.5-10.1 [facility] Comment on above: Performed By: #### T SH, CMP, LIPID ####[facility] [address] [place] [id number]. Hu Can Chloride [Moles/Vol] 102 mmol/L Normal 98-107 [facility] Comment on above: Performed By: #### T SH, CMP, LIPID ####[facility] [address] [place] [id number]. Hu Can CO2 [Moles/Vol] 28.2 mmol/L Normal 21.0-32.0 [facility] Comment on above: Performed By: #### T SH, CMP, LIPID ####[facility] [address] [place] [id number]. Hu Can Creatinine [Mass/Vol] 0.91 mg/dL Normal 0.55-1.02 [facility] Comment on above: Performed By: #### T SH, CMP, LIPID ####[facility] [address] [place] [id number]. Hu Can EGFR-AF SINGAPOREAN >60 Normal >=60 [facility] Comment on above: Performed By: #### T SH, CMP, LIPID ####[facility] [address] [place] [address]Dr. Ellikaila Can EGFR-NON AF SINGAPOREAN >60 Normal >=60 [facility] Comment on above: Performed By: #### T SH, CMP, LIPID ####[facility] [address] [place] [address]Dr. Hu Can Globulin (S) [Mass/Vol] 3.3 g/dL Normal [facility] Comment on above: Performed By: #### T SH, CMP, LIPID ####[facility] [address] [place] [address]Dr. Hu Can Glucose [Mass/Vol] 105 mg/dL Normal 74-106 [facility] Comment on above: Performed By: #### T SH, CMP, LIPID ####[facility] [address] [place] [address]Dr. Hu Can Potassium [Moles/Vol] 4.2 mmol/L Normal 3.5-5.1 [facility] Comment on above: Performed By: #### T SH, CMP, LIPID ####[facility] [address] [place] [address]Dr. Hu Can Protein [Mass/Vol] 7.1 g/dL Normal 6.4-8.2 [facility] Comment on above: Performed By: #### T SH, CMP, LIPID ####[facility] [address] [place] [address]Dr. Ellikaila Can Sodium [Moles/Vol] 137 mmol/L Normal 136-145 [facility] Comment on above: Performed By: #### T SH, CMP, LIPID ####[facility] [address] [place] [address]Dr. Hu Can Urea nitrogen [Mass/Vol] 23.0 mg/dL Critically high 7.0-18.0 [facility] Comment on above: Performed By: #### T SH, CMP, LIPID ####[facility] [address] [place] [address]Dr. Hu Can Urea nitrogen/Creatinin e [Mass ratio] 25.3 mg/mg Normal [facility] Comment on above: Performed By: #### T ABDI, CMP, LIPID ####[facility] [address] [place], [place] [address]Wk. Hu Can TSHon 12-13-2021 TSH 1.249 uIU/mL Normal 0.358-3.740 [facility] Comment on above: Performed By: #### T ABDI, CMP, LIPID ####[facility] [address] [place], [place] [address]Ij. Hu Can XR CSPINE MIN 4 VIEWSon [...] [place] CAMPOS Date: 2021-12-07 19:38 Normal [facility] MG MAMM SCREEN 3D HIEU CADon 10-28-2021 MG MAMM SCREEN 3D HIEU CAD Patient: THERESA REYES Exam Date: 10/28/2021 : 1970 Gender:F Ordering : DR GABBY DEE . Admission #: [id number] Family : Order #: [id number] CLICK HERE TO VIEW EXAM RADIOLOGY REPORT [...] ovarian cancer at age 80. LOCATION: [facility] BREAST COMPOSITION: Scattered areas fibroglandular density. [...] M.D. on 10/28/2021 at 12:02 Normal [facility] Covid-19 PCR (CVDTB)on 09-15 SARS-CoV-2 (COVID-19) RNA CLARISSA+probe Ql (Unsp spec) Not detected Normal NOT DETECTED [facility] Comment on above: Result Comment: When [...] for this test is supported by the [place] of Health and Human Service's declaration that [...] used). Performed By: #### C VDTB #### [facility] [address] [place] [address] Dr. Hu Can Covid-19 PCR (CVDTB)on 09-14 SARS-CoV-2 (COVID-19) RNA CLARISSA+probe Ql (Unsp spec) Detected Critically abnormal NOT DETECTED [facility] Comment on above: Result Comment: This test is not yet approved or cleared by the [place] FDA. When there are no FDA-approved or cleared tests available, and other criteria are met, FDA can make tests available under an emergency access mechanism called an Emergency Use Authorization (EUA). The EUA for this test is supported by the [place] of Health and Human Service's declaration that [...] longer be used). Performed By: #### C [facility] ####[facility] [address] [place], [place] [address]Ay. Hu Can Pathology Noteon 07-12-2021 Pathology Note [id number] D:127 Normal [facility] Vital Signs Date Time Vital Sign Value Performing Clinician Facility 09-02-2022 09:30-0400 Body height 170.18 cm Diamond [employer] Other [facility] Other 09-02-2022 09:30-0400 Body mass index (BMI) [Ratio] 30.85 kg/m2 Diamond [employer] Other [facility] Other 09-02-2022 09:30-0400 Body weight 89.36 kg Diamond [employer] Other [facility] Other 04-08-2022 15:14-0500 Blood Pressure Location Morris CAGLE [facility] [place] [facility] 04-08-2022 15:14-0500 Diastolic blood pressure 88 mm[Hg] Morris CAGLE [facility] [place] 04-08-2022 15:14-0500 Heart rate 72 /min Morris CAGLE [facility] [place] 04-08-2022 15:14-0500 Respiratory rate 16 /min Morris CAGLE [facility] [place] 04-08-2022 15:14-0500 Systolic blood pressure 128 mm[Hg] Morris CAGLE [facility] [place] Encounters Encounter Date Encounter Type Care Provider Facility Start: 01-02-2023 End: 01-02-2023 ambulatory Diamond Cabraley Other [facility] Other Start: 01-02-2023 Office outpatient vi sit 15 minutes Diamond Calvey [facility] Start: 09-23-2022 End: 09-23-2022 ambulatory Diamond Calvey Other [facility] Other Start: 09-23-2022 Office outpatient vi sit 15 minutes Diamond Calvey [facility] Start: 09-02-2022 End: 09-02-2022 ambulatory Diamond Calvey Other [facility] Other Start: 09-02-2022 Office outpatient vi sit 15 minutes Diamond Calvey [facility] Start: 07-08-2022 End: 07-08-2022 ambulatory Diamond Calvey Other [facility] Other Start: 07-08-2022 Office outpatient vi sit 15 minutes Diamond Calvey [facility] Start: 06-03-2022 Office outpatient vi sit 15 minutes Diamond Calvey [facility] Start: 06-03-2022 End: 06-03-2022 ambulatory Diamond R Calvey Facility:[facility] Start: 06-03-2022 End: 06-03-2022 ambulatory MD Diamond Case Work Phone: [facility] Work Phone: Start: 06-03-2022 End: 06-03-2022 Patient encounter procedure MD Diamond Case Work Phone: [facility] Start: 05-16-2022 End: 05-17-[address] GABBY DEE . Facility:[facility] Start: 05-14-2022 End: 05-22-[address] GABBY DEE . Facility:[facility] Start: 05-07-2022 End: 05-08-2022 ambulatory Morris CAGLE Facility:CD:[id number] Start: 05-06-2022 End: 05-06-2022 ambulatory Diamond Case Other [facility] Other Start: 05-06-2022 Office outpatient ne w 30 minutes Diamond Case [place] [place] [facility] Start: 04-08-2022 End: 04-09-2022 ambulatory Morris CAGLE Facility:[facility] Start: 04-08-2022 End: 04-08-2022 Patient encounter procedure Morris Reena CAGLE General [facility] [place] Start: 03-16-[address] GABBY DEE . Facili ty:[facility] Start: 02-26-2022 End: 02-26-[address] GABBY DEE . Facility:[facility] Start: 01-01-2022 End: 01-31-[address] GABBY DEE . Facility:[facility] Start: 12-16-2021 Encounter for genera l adult medical examination without abnormal findings DR GABBY DEE . [facility] Start: 12-13-2021 End: 12-14-[address] [...] vaccine, unspecified formulation Morris CAGLE [facility] [place] 04-30-2020 SARS-CoV-2 (COVID-19 ) Ad26 vaccine, recombinant Morris CAGLE [facility] [place] 04-02-2020 SARS-CoV-2 (COVID-19 ) Ad26 vaccine, recombinant Morris MORGANL [facility] [place] Payers Date Payer Category Payer Self-pay 2022 Unknown [id number] 2019 Unknown [id number] 1970 Unknown [id number] 2.16.8 40.1.889623.3.579.2.727 1970 Unknown [id number] 2.16.8 40.1.639971.3.579.2.727 1970 Unknown [id number] 2.16.84 0.1.014750.3.579.2.593 1970 Unknown [id number] 2.16.84 0.1.041400.3.579.2.593 1970 Unknown [id number] 2.16.84 0.1.292260.3.579.2.593 1970 Unknown [id number] 2.16.84 0.1.059179.3.579.2.593 1970 Unknown [id number] 2.16.84 0.1.828313.3.579.2.593 1970 Unknown [id number] 2.16.84 0.1.535722.3.579.2.593 1970 Unknown [id number] 2.16.84 0.1.573216.3.579.2.593 1970 Unknown [id number] 2.16.84 0.1.628333.3.579.2.593 1970 Unknown [id number] 2.16.84 0.1.845936.3.579.2.593 1970 Unknown [id number] 2.16.84 0.1.776132.3.579.2.593 1970 Unknown [id number] 2.16.84 0.1.349759.3.579.2.593 1959 Self-pay [id number] Unknown [id number] 2.16.8 40.1.014372.3.579.2.531 Social History Date Type Detail Facility Start: 04-08-2022 Tobacco smoking status Never s moked tobacco (finding) [facility] [place] Tobacco smoking status Never Gener al [facility] [place] Sex Assigned At Female [facility] Start: 1970 Sex Assigned At Female F [facility] Functional Status Date Assessment Result Facility 04-08-2022 Functional Status N/A General Laws [facility] Clinical Notes 12-07-2021 to 01-02-2023 Note [...] well as cortisone injection and surgical release. [facility] Other 07-11-2023 Evaluation note* Encounter Date Diagnosis [...] Left hand pain (ICD- 10 - M79.642) [facility] Other 06-20-2023 Evaluation note* Encounter Date Diagnosis [...] joint of left hand (ICD-10 - M18.12) [facility] Other 2023 Evaluation note* Encounter Date Diagnosis [...] joint of left hand (ICD-10 - M18.12) [facility] Other 03-21-2023 Evaluation note* Encounter Date Diagnosis [...] and tingle for hours after this injection. [facility] Other 03-04-2023 NotePROCEDURE: XR FOOT RT MIN [...] authenticated by: AL CAMPOS Date: 2022-05-17 12:06[id number] NoteOPERATIVE NOTE OPERATION DATE: 05/07/2022 PREOPERATIVE DIAGNOSIS: [...] in good condition. CC: Gabby Dee M.D.[facility] [id number] NoteOPERATIVE NOTE OPERATION DATE: 05/07/2022 ADDENDUM: The distal rectal 4 mm irregular flat polyp was removed with hot snare with good hemostasis, not with cold biopsy forceps.[facility] 05-06-2022 Evaluation note* Encounter Date Diagnosis [...] Apr, Right hand pain (ICD-10 - M79.641) [facility] Other 09-24-2022 NotePROCEDURE: XR SHOULDER LT 2V or > COMPARISON: None. HISTORY: Impingement syndrome of shoulder region FINDINGS: BONES:No fracture, acute abnormality, or significant arthropathy. SOFT TISSUES:Negative. No visible soft tissue swelling. EFFUSION:None visible. OTHER: Negative. IMPRESSION: No acute disease. Electronically authenticated by: AL CAMPOS Date: 2021-12-07 19:36[facility] note No data available for this section General Surgery [place] Evaluation noteNo assessment information available [facility] Work Phone: History general Narrative - Reported* Type Description Date Medical History high cholesterol Surgical History Foot Surgery Surgical History clogged tear duct [facility] Other Hospital Discharge instructions No data available for this section [facility] Surgery [place] Progress note No data available for this section [facility] Surgery [place] Summary Purpose Family History No Family History [...] section and content) DATE CREATED AUTHOR [facility] DATE CREATED AUTHOR AUTHOR'S ORGANIZ ATION 06/18/2022 [facility] DATE CREATED AUTHOR AUTHOR'S ORGANIZ ATION 06/21/2022 [facility] [place] [facility] REASON FOR VISIT (unrecogniz ed [...] BE BASED ON THE PRIMARY CLINICAL RECORDS. [employer] provides no warranty or guarantee of the accuracy or completeness of information in this document.
--- OUTSIDE RECORDS SUMMARY | 2023-04-29 09:06 | XMS_ITS | CCD ---
Author Name Unknown Address [address] [place] [address] Organization [facility] Care Team Providers Care Surgical Services Tech Name Role Phone Gabby Dee Primary Care [...] Unavailable HOY ., DR PIERRE Admitting Unavailable NORWOOD, DR AL Shaikh Consulting Unavailable HOY ., [...] Unavailable HOY ., DR PIERRE Consulting Unavailable NORWOOD, DR AL Shaikh Consulting Unavailable HOY ., DR PIERRE Admitting Unavailable HOY ., DR PIERER Attending Unavailable HOY ., DR PIERRE Primary Care Unavailable Allergies Allergy Classification Reported Allergen(s) Allergy Type Date of Onset Reaction(s) Facility (1 source) No Known Medication Allergies; Translations: [No Known Medication Allergies] Propensity to adverse reactions (disorder) [facility] Repository (2 sources) Baclofen Drug Allergy [facility] Repository Medications Current Medications Medication Drug [...] 3V*on 023 XR hand LT min 3V* [facility] Main [address] [address] XRay Report Signed Patient: Theresa Reyes MR#: [id number] : 1970 Acct:[id number] Age/Sex: 52 / F ADM Date: 06/03/22 Loc: [facility] Room: Type: [facility] Attending Dr: Diamond Case MD Copies to: [...] Miguel Ramey M.D.06/03/2022 1:11 PM Dictation Location: [place] [address] Transcribed By: [facility] 06/03/22 1311 Dictated By: Miguel Ramey II, MD 06/03/22 1310 Signed By: 06/03/22 [address] [facility] XR hand LT min 3V* [facility] [employer] Other XR hand LT min 3V* [facility] [employer] Other XR hand LT min 3V* [address] [place] [address] [employer] Other XR hand LT min 3V* [place] [address] [employer] [facility] [employer] Other XR hand LT min 3V* XRay Report [employer] Other XR hand LT min 3V* Signed [employer] Other XR hand LT min 3V* Patient: Theresa Reyes MR#: [id number] [employer] Other XR hand LT min 3V* [id number] [employer] Other XR hand LT min 3V* : 1970 Acct:[id number] [employer] Other XR hand LT min 3V* Age/Sex: 52 / F ADM Date: 06/03/22 [employer] Other XR hand LT min 3V* Loc: [facility] Room: Type : [facility] [employer] Other XR hand LT min 3V* Attending Dr: Benny Case MD [employer] Other XR hand LT min 3V* Copies to: Diamond Case MD [employer] Other XR hand LT min 3V* Ordering Provider: Diamond Case MD [employer] Other XR hand LT min 3V* Date of Service: 06/03/22 [employer] Other XR hand LT min 3V* XR/XR hand LT min 3V*: PAIN [employer] Other XR hand LT min 3V* XR hand LT min 3V* 06/03/2022 8:44 AM [employer] Other XR hand LT min 3V* SIGNS AND SYMPTOMS: Left thumb/first metacarpal pain [employer] Other XR hand LT min 3V* PROTOCOL: Frontal, lateral, and oblique radiographs of the left hand: [employer] Other XR hand LT min 3V* COMPARISON: None [employer] Other XR hand LT min 3V* FINDINGS: [employer] Other XR hand LT min 3V* The bones are in anatomic alignment. There is mild degenerative change at the first carpometacarpal [employer] Other XR hand LT min 3V* junction. There is preservation of the joint spaces, otherwise. There is no fracture or dislocation. [employer] Other XR hand LT min 3V* No significant soft tissue swelling. [employer] Other XR hand LT min 3V* XR/XR hand LT min 3V* [employer] Other XR hand LT min 3V* IMPRESSION: [employer] Other XR hand LT min 3V* No acute bony injury. [employer] Other XR hand LT min 3V* Mild degenerative fa cet noted at the base of the thumb. [employer] Other XR hand LT min 3V* Impression dictated by: Miguel Ramey M.D.06/03/2022 1:11 PM [employer] Other XR hand LT min 3V* Dictation Location: [place] [address] [employer] Other XR hand LT min 3V* Transcribed By: KARRIE 06/03/22 [facility] [employer] Other XR hand LT min 3V* Dictated By: Miguel Ramey II, MD 06/03/22 [facility] [employer] Other XR hand LT min 3V* Signed By: [employer] Other XR hand LT min 3V* 06/03/[address] [place] [address] [employer] Other Reminderson 05-15-2022 Reminders - From: Jessica Mims LPN To: [facility] - Clinical; Sent: 05/15/2022 07:57:39 EST Show up: 04/06/2025 07:00:00 EST Subject: colonoscopy recall Due Date/Time: 05/07/2025 07:00:00 EST Reminder/Recall Patient is due for colonoscopy 05/07/2025 due to history of tubulovillous adenoma. Normal [facility] Pathology Noteon 05-09-2022 Pathology Note [id number]#1.00CD :127 Normal [facility] Outside Colonoscopyon 2022 Outside Colonoscopy [id number]#1.00C D:127 Normal [facility] PREG HCG QUALon 05-07-2022 , QUAL Negative Normal NEGATIVE [facility] Comment on above: Performed By: #### P REG #### [facility] [address] [place] [address] Dr. Hu Can Pre-Certification Formon Pre-Certification Form [id number]#1.00 CD:127 Normal [facility] Consent for Procedure/Surger yon 04-10-2022 Consent for Procedure/Surgery [id number]#1.00C D:127 Normal [facility] Facesheeton 04-10-2022 Facesheet [id number]#1.00C D:127 Normal [facility] General Surgery Office/Clini c Noteon 04-08-2022 [...] SARS-CoV-2 (COVID-19) Ad26 vaccine 04/02/2020 Recorded Normal [facility] Comment on above: Result Comment: Elec tronically Signed By: JEFF PONCE, Morris Nelson\Date and Time Signed: 04/08/22 15:33 EST Covid-19 PCR (CVDTB)on 02-13 SARS-CoV-2 (COVID-19) RNA CLARISSA+probe Ql (Unsp spec) Not detected Normal NOT DETECTED [facility] Comment on above: Result Comment: When [...] for this test is supported by the [place] of Health and Human Service's declaration that [...] used). Performed By: #### C VDTB #### [facility] [address] [place] [address] Dr. Hu Can INFLUENZA A AND B [facility] 02-26 [facility] SEE BELOW Normal [facility] Comment on above: Result Comment: Nega tive for Flu A protein angiten. Infection due to Flu A cannot be ruled out. Flu A angiten in the sample may be below the detection limit of the test. Performed By: #### I NFLUAB #### [facility] [address] [place] [address] Dr. Hu [facility] BELOW Normal [facility] Comment on above: Result Comment: Nega tive for Flu B protein antigen. Infection due to Flu B cannot be ruled out. Flu B antigen in the sample may be below the detection limit of the test. Performed By: #### I NFLUAB #### [facility] [address] [place] [address] Dr. Hu Can INFLUENZA A AG Negative Normal NEGATIVE SEE COMMENT [facility] Comment on above: Performed By: #### I NFLUAB #### [facility] [address] [place] [address] Dr. Hu Can INFLUENZA B AG Negative Normal NEGATIVE SEE COMMENT [facility] Comment on above: Performed By: #### I NFLUAB #### [facility] [address] [place] [address] Dr. Hu Can INTERNAL CONTROLS Within Normal Limits Normal Wi thin Normal Limits [facility] Comment on above: Performed By: #### I NFLUAB #### [facility] [address] [place] [address] Dr. Hu Can CBC AUTO DIFFon 12-13-2021 BASO # 0.0 103/ul Normal 0.0-0.1 [facility] Comment on above: Performed By: #### C BC #### [facility] [address] [place] [address] Dr. Hu Can Basophils/100 WBC (Bld) 0.3 % Normal 0.2-2.0 [facility] Comment on above: Performed By: #### C BC #### [facility] [address] [place] [address] Dr. Hu Can EO # 0.1 103/ul Normal 0.0-0.7 [facility] Comment on above: Performed By: #### C BC #### [facility] [address] [place] [address] Dr. Hu Can Eosinophils/100 WBC (Bld) 1.1 % Normal 0.9-7.0 [facility] Comment on above: Performed By: #### C BC #### [facility] [address] [place] [address] Dr. Hu Can Erythrocyte distribution width (RBC) [Ratio] 13.7 % Normal 11.0-15.0 [facility] Comment on above: Performed By: #### C BC #### [facility] [address] [place] [address] Dr. Hu Can Hematocrit (Bld) [Volume fraction] 44.6 % Normal 36.0-48.0 [facility] Comment on above: Performed By: #### C BC #### [facility] [address] [place] [address] Dr. Hu Can Hemoglobin (Bld) [Mass/Vol] 14.5 g/dL Normal 12.0-16.0 [facility] Comment on above: Performed By: #### C BC #### [facility] [address] [place] [address] Dr. Hu Can IG # 0.02 10e3/ul Normal 0.00-0.03 [facility] Comment on above: Performed By: #### C BC #### [facility] [address] [place] [address] Dr. Hu Can IG % 0.3 % Normal 0.0-0.5 [facility] Comment on above: Performed By: #### C BC #### [facility] [address] [place] [address] Dr. Hu Can LYMPH # 2.3 103/ul Normal 1.2-3.8 [facility] Comment on above: Performed By: #### C BC #### [facility] [address] [place] [address] Dr. Hu Can Lymphocytes/100 WBC (Bld) 30.5 % Normal 20.5-60.0 [facility] Comment on above: Performed By: #### C BC #### [facility] [address] [place] [address] Dr. Hu Can MANUAL DIFF REQ NO Normal [facility] Comment on above: Performed By: #### C BC #### [facility] [address] [place] [address] Dr. Hu Can MCH (RBC) [Entitic mass] 29.1 pg Normal 26.7-34.0 [facility] Comment on above: Performed By: #### C BC #### [facility] [address] [place] [address] Dr. Hu Can MCHC (RBC) [Mass/Vol] 32.5 g/dL Normal 29.9-35.2 [facility] Comment on above: Performed By: #### C BC #### [facility] [address] [place] [address] Dr. Hu Can MCV (RBC) [Entitic vol] 89.6 fL Normal 81.0-99.0 [facility] Comment on above: Performed By: #### C BC #### [facility] [address] [place] [address] Dr. Hu Can MONO # 0.5 103/ul Normal 0.3-0.8 [facility] Comment on above: Performed By: #### C BC #### [facility] [address] [place] [address] Dr. Hu Can Monocytes/100 WBC (Bld) 6.8 % Normal 1.7-12.0 [facility] Comment on above: Performed By: #### C BC #### [facility] [address] [place] [address] [address] Hu Can NEUT # 4.6 103/ul Normal 1.4-6.5 [facility] Comment on above: Performed By: #### C BC #### [facility] [address] [place] [address] [address] Hu Can Neutrophils/100 WBC (Bld) 61.0 % Normal 43.0-75.0 [facility] Comment on above: Performed By: #### C BC #### [facility] [address] [place] [address] [address] Hu Can Platelet mean volume (Bld) [Entitic vol] 9.3 fL Critically low 9.5-13.5 [facility] Comment on above: Performed By: #### C BC #### [facility] [address] [place] [address] Dr. Hu Can PLT 296 103/ul Normal 150-450 [facility] Comment on above: Performed By: #### C BC #### [facility] [address] [place] [address] [address] Hu Can RBC 4.98 106/ul Normal 4.20-5.40 [facility] Comment on above: Performed By: #### C BC #### [facility] [address] [place] [address] Dr. Hu Can WBC 7.5 103/ul Normal 4.0-11.0 [facility] Comment on above: Performed By: #### C BC #### [facility] [address] [place] [address] Dr. Hu Can GLYCOHEMOGLOBIN A1Con 2021 ADA RECOMMENDATION SEE BELOW Normal [facility] Comment on above: Result Comment: ADA RECOMMENDED LIMIT 4.0 - 6.0 ADA THERAPEUTIC TARGET < 7.0 ACTION SUGGESTED > 7.0 Performed By: #### A 1C #### [facility] [address] [place] [address] Dr. Hu Can Glucose [Mass/Vol] 114 mg/dL Normal [facility] Comment on above: Performed By: #### A 1C #### [facility] [address] [place], [place] [address] Dr. Hu Can HbA1c (Bld) [Mass fraction] 5.6 % Normal 4.5-6.2 [facility] Comment on above: Performed By: #### A 1C #### [facility] [address] [place], [place] [address] Dr. Hu Can LIPID PROFILEon 12-13-2021 CHOL-HDL RATIO NORM SEE BELOW Normal [facility] Comment on above: Result Comment: 3.3 - 4.4 LOW RISK 4.4 - 7.1 AVERAGE RISK 7.1 - 11.0 MODERATE RISK >11.0 HIGH RISK Performed By: #### T ABDI, CMP, LIPID ####[facility] [address] [place] [id number]. Hu Can Cholesterol [Mass/Vol] 279 mg/dL Critically high <=200 [facility] Comment on above: Performed By: #### T ABDI, CMP, LIPID ####[facility] [address] [place] [id number]. Hu Can Cholesterol in HDL [Mass/Vol] 50 mg/dL Normal 40-60 [facility] Comment on above: Performed By: #### T ABDI, CMP, LIPID ####[facility] [address] [place], [place] [address]Rl. Hu Can Cholesterol in LDL [Mass/Vol] 197.8 mg/dL Normal [facility] Comment on above: Performed By: #### T ABDI, CMP, LIPID ####[facility] [address] [place], [place] [address]Kl. Hu Can Cholesterol.total/ Cholesterol in HDL [Mass ratio] 5.6 {ratio} Normal [facility] Comment on above: Performed By: #### T ABDI, CMP, LIPID ####[facility] [address] [place], [place] [address]Dk. Hu Can HDL NORMAL > or = 60 mg/dl - LO W CARDIOVASCULAR RISK <40 mg/dl - HIGH CARDIOVASCULAR RISK Normal [facility] Comment on above: Performed By: #### T SH, CMP, LIPID ####[facility] [address] [place] [address]Dr. Hu Can LDL CALC NORMAL SEE BELOW Normal [facility] Comment on above: Result Comment: <100 mg/dl OPTIMAL 100 - 129 mg/dl NEAR OR ABOVE OPTIMAL 130 - 159 mg/dl BORDERLINE HIGH 160 - 189 mg/dl HIGH >190 mg/dl VERY HIGH Performed By: #### T SH, CMP, LIPID ####[facility] [address] [place] [address]Dr. Hu Can Triglyceride [Mass/Vol] 156 mg/dL Critically high <=150 [facility] Comment on above: Performed By: #### T ABDI, CMP, LIPID ####[facility] [address] [place] [address]Dr. Hu Can VLDL CALC 31.2 mg/dL Normal [facility] Comment on above: Performed By: #### T ABDI, CMP, LIPID ####[facility] [address] [place] [address]Dr. Hu Can PROF 14(COMP METB)on 022 Albumin [Mass/Vol] 3.8 g/dL Normal 3.4-5.0 [facility] Comment on above: Performed By: #### T ABDI, CMP, LIPID ####[facility] [address] [place] [address]Dr. Hu Can Albumin/Globulin [Mass ratio] 1.2 {ratio} Normal [facility] Comment on above: Performed By: #### T SH, CMP, LIPID ####[facility] [address] [place] [address]Dr. Hu Can ALP [Catalytic activity/Vol] 74 U/L Normal 46-116 [facility] Comment on above: Performed By: #### T SH, CMP, LIPID ####[facility] [address] [place] [address]Dr. Hu Can ALT [Catalytic activity/Vol] 19 U/L Normal 14-59 [facility] Comment on above: Performed By: #### T SH, CMP, LIPID ####[facility] [address] [place] [id number]. Hu Can Anion gap [Moles/Vol] 11.0 mmol/L Normal [facility] Comment on above: Performed By: #### T SH, CMP, LIPID ####[facility] [address] [place] [phone]. Hu Can AST [Catalytic activity/Vol] 12 U/L Critically low 15-37 [facility] Comment on above: Performed By: #### T SH, CMP, LIPID ####[facility] [address] [place] [phone]. Hu Can Bilirubin [Mass/Vol] 0.7 mg/dL Normal 0.2-1.0 [facility] Comment on above: Performed By: #### T SH, CMP, LIPID ####[facility] [address] [place] [address]Dr. Hu Can Calcium [Mass/Vol] 8.7 mg/dL Normal 8.5-10.1 [facility] Comment on above: Performed By: #### T SH, CMP, LIPID ####[facility] [address] [place] [phone]. Hu Can Chloride [Moles/Vol] 102 mmol/L Normal 98-107 [facility] Comment on above: Performed By: #### T SH, CMP, LIPID ####[facility] [address] [place] [phone]. Hu Can CO2 [Moles/Vol] 28.2 mmol/L Normal 21.0-32.0 [facility] Comment on above: Performed By: #### T SH, CMP, LIPID ####[facility] [address] [place] [phone]. Hu Can Creatinine [Mass/Vol] 0.91 mg/dL Normal 0.55-1.02 [facility] Comment on above: Performed By: #### T SH, CMP, LIPID ####[facility] [address] [place] [phone]. Hu Can EGFR-AF MOS[place]HO >60 Normal >=60 [facility] Comment on above: Performed By: #### T SH, CMP, LIPID ####[facility] [address] [place] [address]Dr. Ellikaila Can EGFR-NON AF [place] >60 Normal >=60 [facility] Comment on above: Performed By: #### T SH, CMP, LIPID ####[facility] [address] [place] [address]Dr. Hu Can Globulin (S) [Mass/Vol] 3.3 g/dL Normal [facility] Comment on above: Performed By: #### T SH, CMP, LIPID ####[facility] [address] [place] [address]Dr. Hu Can Glucose [Mass/Vol] 105 mg/dL Normal 74-106 [facility] Comment on above: Performed By: #### T SH, CMP, LIPID ####[facility] [address] [place] [address]Dr. Hu Cna Potassium [Moles/Vol] 4.2 mmol/L Normal 3.5-5.1 [facility] Comment on above: Performed By: #### T SH, CMP, LIPID ####[facility] [address] [place] [address]Dr. Hu Can Protein [Mass/Vol] 7.1 g/dL Normal 6.4-8.2 [facility] Comment on above: Performed By: #### T SH, CMP, LIPID ####[facility] [address] [place] [address]Dr. Ellikaila Can Sodium [Moles/Vol] 137 mmol/L Normal 136-145 [facility] Comment on above: Performed By: #### T SH, CMP, LIPID ####[facility] [address] [place] [address]Dr. Hu Can Urea nitrogen [Mass/Vol] 23.0 mg/dL Critically high 7.0-18.0 [facility] Comment on above: Performed By: #### T SH, CMP, LIPID ####[facility] [address] [place] [address]Dr. Hu Can Urea nitrogen/Creatinin e [Mass ratio] 25.3 mg/mg Normal [facility] Comment on above: Performed By: #### T ABDI, CMP, LIPID ####[facility] [address] [place], [place] [address]Ss. Hu Can TSHon 12-13-2021 TSH 1.249 uIU/mL Normal 0.358-3.740 [facility] Comment on above: Performed By: #### T ABDI, CMP, LIPID ####[facility] [address] [place], [place] [address]Ai. Hu Can XR CSPINE MIN 4 VIEWSon [...] [place] CAMPOS Date: 2021-12-07 19:38 Normal [facility] MG MAMM SCREEN 3D HIEU CADon 10-28-2021 MG MAMM SCREEN 3D HIEU CAD Patient: THERESA REYES Exam Date: 10/28/2021 : 1970 Gender:F Ordering : DR GABBY DEE . Admission #: [id number] Family : Order #: [id number] CLICK HERE TO VIEW EXAM RADIOLOGY REPORT [...] ovarian cancer at age 80. LOCATION: [facility] BREAST COMPOSITION: Scattered areas fibroglandular density. [...] M.D. on 10/28/2021 at 12:02 Normal [facility] Covid-19 PCR (CVDTB)on 09-15 SARS-CoV-2 (COVID-19) RNA CLARISSA+probe Ql (Unsp spec) Not detected Normal NOT DETECTED [facility] Comment on above: Result Comment: When [...] for this test is supported by the [employer] Car[employer] of Health and Human Service's declaration that [...] used). Performed By: #### C VDTB #### [facility] [address] [place] [address] Dr. Hu Can Covid-19 PCR (CVDTB)on 09-14 SARS-CoV-2 (COVID-19) RNA CLARISSA+probe Ql (Unsp spec) Detected Critically abnormal NOT DETECTED [facility] Comment on above: Result Comment: This test is not yet approved or cleared by the [place] FDA. When there are no FDA-approved or cleared tests available, and other criteria are met, FDA can make tests available under an emergency access mechanism called an Emergency Use Authorization (EUA). The EUA for this test is supported by the [place] of Health and Human Service's declaration that [...] longer be used). Performed By: #### C [facility] ####[facility] [address] [place], [place] [address]Yi. Hu Can Pathology Noteon 07-12-2021 Pathology Note [id number] D:127 Normal [facility] Vital Signs Date Time Vital Sign Value Performing Clinician Facility 09-02-2022 09:30-0400 Body height 170.18 cm Diamond Tune Other [facility] Other 09-02-2022 09:30-0400 Body mass index (BMI) [Ratio] 30.85 kg/m2 [facility] 09-02-2022 09:30-0400 Body weight 89.36 kg Diamond Tune Other [facility] Other 04-08-2022 15:14-0500 Blood Pressure Location Morris CAGLE [facility] 04-08-2022 15:14-0500 Diastolic blood pressure 88 mm[Hg] Morris CAGLE [facility] 04-08-2022 15:14-0500 Heart rate 72 /min Morris CAGLE [facility] 04-08-2022 15:14-0500 Respiratory rate 16 /min Morris CAGLE [facility] 04-08-2022 15:14-0500 Systolic blood pressure 128 mm[Hg] Morris CAGLE [facility] Encounters Encounter Date Encounter Type Care Provider Facility Start: 01-02-2023 End: 01-02-2023 ambulatory Diamond Cabraley Other [facility] Other Start: 01-02-2023 Office outpatient vi sit 15 minutes Diamond Calvey [facility] Start: 09-23-2022 End: 09-23-2022 ambulatory Diamond Calvey Other [facility] Other Start: 09-23-2022 Office outpatient vi sit 15 minutes Diamond Calvey [facility] Start: 09-02-2022 End: 09-02-2022 ambulatory Diamond Calvey Other [facility] Other Start: 09-02-2022 Office outpatient vi sit 15 minutes Diamond Calvey [facility] Start: 07-08-2022 End: 07-08-2022 ambulatory Diamond Calvey Other [facility] Other Start: 07-08-2022 Office outpatient vi sit 15 minutes Diamond Calvey [facility] Start: 06-03-2022 Office outpatient vi sit 15 minutes Diamond Calvey [facility] Start: 06-03-2022 End: 06-03-2022 ambulatory Diamond R Calvey Facility:[facility] Start: 06-03-2022 End: 06-03-2022 ambulatory MD Diamond Case Work Phone: [facility] Work Phone: Start: 06-03-2022 End: 06-03-2022 Patient encounter procedure MD Diamond Case Work Phone: [facility] Start: 05-16-2022 End: 05-17-[address] GABBY DEE . Facility:[facility] Start: 05-14-2022 End: 05-22-[address] GABBY DEE . Facility:[facility] Start: 05-07-2022 End: 05-08-2022 ambulatory Morris CAGLE Facility:CD:[id number] Start: 05-06-2022 End: 05-06-2022 ambulatory Diamond Case Other [facility] Other Start: 05-06-2022 Office outpatient ne w 30 minutes Diamond Case [facility] Start: 04-08-2022 End: 04-09-2022 ambulatory Morris CAGLE Facility:[facility] Start: 04-08-2022 End: 04-08-2022 Patient encounter procedure Morris Reena CAGLE [facility] Start: 03-16-[address] GABBY DEE . Facili ty:[facility] Start: 02-26-2022 End: 02-26-[address] GABBY DEE . Facility:[facility] Start: 01-01-2022 End: 01-31-[address] GABBY DEE . Facility:[facility] Start: 12-16-2021 Encounter for genera l adult medical examination without abnormal findings DR GABBY DEE . [facility] Start: 12-13-2021 End: 12-14-[address] [...] vaccine, unspecified formulation Morris CAGLE [facility] 04-30-2020 SARS-CoV-2 (COVID-19 ) Ad26 vaccine, recombinant Morris CAGLE [facility] 04-02-2020 SARS-CoV-2 (COVID-19 ) Ad26 vaccine, recombinant Morris MORGANL [facility] Payers Date Payer Category Payer Self-pay 2022 Unknown [id number] 2019 Unknown [id number] 1970 Unknown [id number] 2.16.8 [id number] 1970 Unknown [id number] 2.16.8 40.1.703191.3.579.2.727 1970 Unknown [id number] 2.16.84 0.1.230457.3.579.2.593 1970 Unknown [id number] 2.16.84 0.1.723929.3.579.2.593 1970 Unknown [id number] 2.16.84 0.1.602471.3.579.2.593 1970 Unknown [id number] 2.16.84 0.1.537050.3.579.2.593 1970 Unknown [id number] 2.16.84 0.1.756009.3.579.2.593 1970 Unknown [id number] 2.16.84 0.1.017967.3.579.2.593 1970 Unknown [id number] 2.16.84 0.1.489719.3.579.2.593 1970 Unknown [id number] 2.16.84 0.1.721727.3.579.2.593 1970 Unknown [id number] 2.16.84 0.1.771581.3.579.2.593 1970 Unknown [id number] 2.16.84 0.1.791581.3.579.2.593 1970 Unknown [id number] 2.16.84 0.1.709619.3.579.2.593 1959 Self-pay [id number] Unknown [id number] 2.16.8 40.1.556662.3.579.2.531 Social History Date Type Detail Facility Start: 04-08-2022 Tobacco smoking status Never s moked tobacco (finding) [facility] Tobacco smoking status Never Gener al Surgery Diamond Sex Assigned At Female [facility] Start: 1970 Sex Assigned At Female [facility] Functional Status Date Assessment Result Facility 04-08-2022 Functional Status N/A General Laws [facility] Clinical Notes 12-07-2021 to 01-02-2023 Note Date [...] well as cortisone injection and surgical release. [facility] Other 07-11-2023 Evaluation note* Encounter Date Diagnosis [...] Left hand pain (ICD- 10 - M79.642) [facility] Other 06-20-2023 Evaluation note* Encounter Date Diagnosis [...] joint of left hand (ICD-10 - M18.12) [facility] Other 2023 Evaluation note* Encounter Date Diagnosis [...] joint of left hand (ICD-10 - M18.12) [facility] Other 03-21-2023 Evaluation note* Encounter Date Diagnosis [...] and tingle for hours after this injection. [facility] Other 03-04-2023 NotePROCEDURE: XR FOOT RT MIN [...] authenticated by: AL CAMPOS Date: 2022-05-17 12:06[facility] [id number] NoteOPERATIVE NOTE OPERATION DATE: 05/07/2022 PREOPERATIVE DIAGNOSIS: [...] in good condition. CC: Gabby Dee M.D.[facility] [id number] NoteOPERATIVE NOTE OPERATION DATE: 05/07/2022 ADDENDUM: The distal rectal 4 mm irregular flat polyp was removed with hot snare with good hemostasis, not with cold biopsy forceps.[facility] 05-06-2022 Evaluation note* Encounter Date Diagnosis [...] Apr, Right hand pain (ICD-10 - M79.641) [facility] Other 09-24-2022 NotePROCEDURE: XR SHOULDER LT 2V or > COMPARISON: None. HISTORY: Impingement syndrome of shoulder region FINDINGS: BONES:No fracture, acute abnormality, or significant arthropathy. SOFT TISSUES:Negative. No visible soft tissue swelling. EFFUSION:None visible. OTHER: Negative. IMPRESSION: No acute disease. Electronically authenticated by: AL CAMPOS Date: 2021-12-07 19:36[facility] + Plan note No data available for this section [facility] Evaluation noteNo assessment information available [facility] Work Phone: History general Narrative - Reported* Type Description Date Medical History high cholesterol Surgical History Foot Surgery Surgical History clogged tear duct [facility] Other Hospital Discharge instructions No data available for this section [facility] Progress note No data available for this section [facility] Summary Purpose Family History No Family History [...] section and content) DATE CREATED AUTHOR [facility]16[facility]2022 [facility] DATE CREATED AUTHOR AUTHOR'S ORGANIZ ATION 06/18/2022 [facility] DATE CREATED AUTHOR AUTHOR'S ORGANIZ ATION 06/21/2022 [facility] REASON FOR VISIT (unrecogniz ed [...] BE BASED ON THE PRIMARY CLINICAL RECORDS. [employer] provides no warranty or guarantee of the accuracy or completeness of information in this document.
[2023-04-29 09:32] LABS: Estimated Average Glucose 128 mg/dL; Glycohemoglobin A1C 6.1 % (4.5-6.2)
== END 2023-04-28 09:01 | disposition home or self-care (01) ==
LOC: LAB 09:00
PROVIDERS: PCP Family Medicine; Visit Provider Family Medicine
DX: R73.01 Impaired fasting glucose (principal)
CPT/HCPCS: 36415; 83036

== ENCOUNTER 2023-07-03 09:06 | Outpatient (OUT) | payer BC, SELFPAY ==
--- NOTE | 2023-07-03 | XR_ITS ---
The [address] [address] Patient Name: THERESA JOSHUA MRN: [id number] date: 1970 Sex: F Assigned Patient Location: Current Patient Location: Accession/Order Number: [id number] Exam Date: 07/03/2023 09:14 Report Date: 07/04/2023 06:45 At the request of: KRAIG ANG Procedure: XR cervical spine 2-3V EXAMINATION: XR cervical spine 2-3V HISTORY: CERVICAL SPINE PAIN COMPARISON: CT cervical spine 03/12/2023 FINDINGS: BONES: Mechanical fusion of C3-C6 via anterior plate and screws; no appreciable hardware fracture or loosening. No appreciable bone fracture or spondylolisthesis. Multilevel mild degenerative facet arthropathy. DISC SPACES: Intervertebral disc spacers C3-C4, C4-C5, C5 on C6. Mild to moderate narrowing C6-C7. PARASPINOUS: Negative. No paraspinous abnormality is seen. OTHER: Negative. XR/XR cervical spine 2-3V IMPRESSION: 1. Interval surgical changes as detailed above. 2. No appreciable acute abnormality. 3. C6-C7 mild to moderate disc space narrowing; grossly stable. Electronically authenticated by: GABRIEL SANDERSON Date: 07/04/2023 06:45
--- OUTSIDE RECORDS SUMMARY | 2023-07-03 09:26 | XMS_ITS | CCD ---
Author Organization [facility] Care Team Providers Care Researcher Name Role Phone Gabby Dee Primary Care Physician Morris CAGLE Attending Unavailable EDDEIL, Morris Valles Attending Unavailable Diamond Case Unavailable MD Diamond Case Attending Provider [phone] Diamond Case Admitting Unavailable Diamond Case Attending Unavailable HOY ., DR PIERRE Primary Care Unavailable HOY ., DR PIERRE Consulting Unavailable MISC, DR BATISTA Attending Unavailable MISC, DR BATISTA Admitting Unavailable NILL ., DR ARECHIGA Admitting Unavailable NILL ., DR ARECHIGA Consulting Unavailable HOY ., DR PIERRE Primary Care Unavailable NILL ., DR ARECHIGA Attending Unavailable SHARP, TOMASA Consulting Unavailable CHRISTINA II, SASHA Consulting Unavailable [...] BRADLEY Consulting Unavailable LEEANNE BRADLEY Attending Unavailable HOY ., DR PIERRE Primary Care Unavailable KIRKLEEANNE VIDAL Admitting Unavailable KIRKLEEANNE VIDAL Admitting Unavailable LEEANNE BRADLEY Consulting Unavailable LEEANNE BRADLEY Attending Unavailable MONICA ., DR GONSALES Primary Care Unavailable HOY ., DR PIERRE Attending Unavailable HOY ., DR PIERRE Primary Care Unavailable HOY ., DR PIERRE Consulting Unavailable HOY ., DR PIERRE Admitting Unavailable [place], DR AL Shaikh Consulting Unavailable HOY ., [...] Unavailable HOY ., DR PIERRE Consulting Unavailable [place], DR AL Shaikh Consulting Unavailable HOY ., DR PIERRE Admitting Unavailable HOY ., DR PIERRE Attending Unavailable HOY ., DR PIERRE Primary Care Unavailable Allergies Allergy Classification Reported Allergen(s) Allergy Type Date of Onset Reaction(s) Facility (1 source) No Known Medication Allergies; Translations: [No Known Medication Allergies] Propensity to adverse reactions (disorder) [facility] Repository (2 sources) Baclofen Drug Allergy [facility] Repository Medications Current Medications Medication Drug Class(es) [...] 3V*on 023 XR hand LT min 3V* [facility] Main [address] [address] XRay Report Signed Patient: Theresa Reyes MR#: [id number] : 1970 Acct:[id number] Age/Sex: 52 / F ADM Date: 06/03/22 Loc: [facility] Room: Type: [facility] Attending Dr: Diamond Case MD Copies to: [...] Miguel Ramey M.D.06/03/2022 1:11 PM Dictation Location: [place] [address] Transcribed By: [facility] 06/03/22 1311 Dictated By: Miguel Ramey II, MD 06/03/22 1310 Signed By: 06/03/22 1311 Normal [facility] XR hand LT min 3V* [facility] [employer] Other XR hand LT min 3V* [facility] Main [facility] [employer] Other XR hand LT min 3V* [address] [place] [address] [employer] Other XR hand LT min 3V* [place], [place] [id number] [place] [address] [employer] Other XR hand LT min 3V* XRay Report [facility] Other XR hand LT min 3V* Signed [facility] Other XR hand LT min 3V* Patient: Theresa Reyes MR#: [id number] [place] Other XR hand LT min 3V* [id number] [facility] Other XR hand LT min 3V* : 1970 Acct:[id number] [facility] Other XR hand LT min 3V* Age/Sex: 52 / F ADM Date: 06/03/22 [facility] Other XR hand LT min 3V* Loc: [facility] Room: Type : [facility] Other XR hand LT min 3V* Attending Dr: Benny Case MD [facility] Other XR hand LT min 3V* Copies to: Diamond Case MD [facility] Other XR hand LT min 3V* Ordering Provider: Diamond Case MD [facility] Other XR hand LT min 3V* Date of Service: 06/03/22 [facility] Other XR hand LT min 3V* XR/XR hand LT min 3V*: PAIN [facility] Other XR hand LT min 3V* XR hand LT min 3V* 06/03/2022 8:44 AM [facility] Other XR hand LT min 3V* SIGNS AND SYMPTOMS: Left thumb/first metacarpal pain [facility] Other XR hand LT min 3V* PROTOCOL: Frontal, lateral, and oblique radiographs of the left hand: [facility] Other XR hand LT min 3V* COMPARISON: None [facility] Other XR hand LT min 3V* FINDINGS: [facility] Other XR hand LT min 3V* The bones are in anatomic alignment. There is mild degenerative change at the first carpometacarpal [facility] Other XR hand LT min 3V* junction. There is preservation of the joint spaces, otherwise. There is no fracture or dislocation. [facility] Other XR hand LT min 3V* No significant soft tissue swelling. [facility] Other XR hand LT min 3V* XR/XR hand LT min 3V* [facility] Other XR hand LT min 3V* IMPRESSION: [facility] Other XR hand LT min 3V* No acute bony injury. [facility] Other XR hand LT min 3V* Mild degenerative fa cet noted at the base of the thumb. [facility] Other XR hand LT min 3V* Impression dictated by: Miguel Ramey M.D.06/03/2022 1:11 PM [facility] Other XR hand LT min 3V* Dictation Location: [place] [address] [facility] Other XR hand LT min 3V* Transcribed By: KARRIE 06/03/22 [facility] Other XR hand LT min 3V* Dictated By: Miguel Ramey II, MD 06/03/22 [facility] Other XR hand LT min 3V* Signed By: [facility] Other XR hand LT min 3V* 06/03/[address] [place] [address] [place] Other Reminderson 05-15-2022 Reminders - From: Jessica Mims LPN To: GSN - Clinical; Sent: 05/15/2022 07:57:39 EST Show up: 04/06/2025 07:00:00 EST Subject: colonoscopy recall Due Date/Time: 05/07/2025 07:00:00 EST Reminder/Recall Patient is due for colonoscopy 05/07/2025 due to history of tubulovillous adenoma. Normal [facility] Pathology Noteon 05-09-2022 Pathology Note [id number]#1.00CD :[address] [facility] Outside Colonoscopyon 2022 Outside Colonoscopy [id number]#1.00C D:[address] [facility] PREG HCG QUALon 05-07-2022 , QUAL Negative Normal NEGATIVE [facility] Comment on above: Performed By: #### P REG #### [facility] [address] [place] [address] [address] Hu Can Pre-Certification Formon Pre-Certification Form [id number]#1.00 CD:[address] [facility] Consent for Procedure/Surger yon 04-10-2022 Consent for Procedure/Surgery [id number]#1.00C D:[address] [facility] Facesheeton 04-10-2022 Facesheet [id number]#1.00C D:[address] [facility] General Surgery Office/Clini c Noteon 04-08-2022 [...] SARS-CoV-2 (COVID-19) Ad26 vaccine 04/02/[address] [facility] Comment on above: Result Comment: Elec tronically Signed By: JEFF PONCE, Morris Nelson\Date and Time Signed: 04/08/22 15:33 EST Covid-19 PCR (CVDTB)on 02-13 SARS-CoV-2 (COVID-19) RNA CLARISSA+probe Ql (Unsp spec) Not detected Normal NOT DETECTED [facility] Comment on above: Result Comment: When diagnostic [...] for this test is supported by the Podiatric Surgeon of Health and Human Service's declaration that [...] used). Performed By: #### C VDTB #### [facility] [address] [place] [address] Dr. Hu Can INFLUENZA A AND B AGon 02-[facility] BELOW Normal [facility] Comment on above: Result Comment: Nega tive for Flu A protein angiten. Infection due to Flu A cannot be ruled out. Flu A angiten in the sample may be below the detection limit of the test. Performed By: #### I NFLUAB #### [facility] [address] [place] [address] Dr. Hu [facility] Normal [facility] Comment on above: Result Comment: Nega tive for Flu B protein antigen. Infection due to Flu B cannot be ruled out. Flu B antigen in the sample may be below the detection limit of the test. Performed By: #### I NFLUAB #### [facility] [address] [place] [address] Dr. Hu Can INFLUENZA A AG Negative Normal NEGATIVE SEE COMMENT [facility] Comment on above: Performed By: #### I NFLUAB #### [facility] [address] [place] [address] Dr. Hu Can INFLUENZA B AG Negative Normal NEGATIVE SEE COMMENT [facility] Comment on above: Performed By: #### I NFLUAB #### [facility] [address] [place] [address] Dr. Hu Can INTERNAL CONTROLS Within Normal Limits Normal Wi thin Normal Limits [facility] Comment on above: Performed By: #### I NFLUAB #### [facility] [address] [place] [address] Dr. Hu Can CBC AUTO DIFFon 12-13-2021 BASO # 0.0 103/ul Normal 0.0-0.1 [facility] Comment on above: Performed By: #### C BC #### [facility] [address] [place] [address] [address] Hu Can Basophils/100 WBC (Bld) 0.3 % Normal 0.2-2.0 [facility] Comment on above: Performed By: #### C BC #### [facility] [address] [place] [address] Dr. Hu Can EO # 0.1 103/ul Normal 0.0-0.7 [facility] Comment on above: Performed By: #### C BC #### [facility] [address] [place] [address] Dr. Hu Can Eosinophils/100 WBC (Bld) 1.1 % Normal 0.9-7.0 [facility] Comment on above: Performed By: #### C BC #### [facility] [address] [place] [address] Dr. Hu Can Erythrocyte distribution width (RBC) [Ratio] 13.7 % Normal 11.0-15.0 [facility] Comment on above: Performed By: #### C BC #### [facility] [address] [place] [address] Dr. Hu Can Hematocrit (Bld) [Volume fraction] 44.6 % Normal 36.0-48.0 [facility] Comment on above: Performed By: #### C BC #### [facility] [address] [place] [address] Dr. Hu Can Hemoglobin (Bld) [Mass/Vol] 14.5 g/dL Normal 12.0-16.0 [facility] Comment on above: Performed By: #### C BC #### [facility] [address] [place] [address] Dr. Hu Can IG # 0.02 10e3/ul Normal 0.00-0.03 [facility] Comment on above: Performed By: #### C BC #### [facility] [address] [place] [address] Dr. Hu Can IG % 0.3 % Normal 0.0-0.5 [facility] Comment on above: Performed By: #### C BC #### [facility] [address] [place] [address] Dr. Hu Can LYMPH # 2.3 103/ul Normal 1.2-3.8 [facility] Comment on above: Performed By: #### C BC #### [facility] [address] [place] [address] Dr. Hu Can Lymphocytes/100 WBC (Bld) 30.5 % Normal 20.5-60.0 [facility] Comment on above: Performed By: #### C BC #### [facility] [address] [place] [address] Dr. Hu Can MANUAL DIFF REQ NO Normal [facility] Comment on above: Performed By: #### C BC #### [facility] [address] [place] [address] Dr. Hu Can MCH (RBC) [Entitic mass] 29.1 pg Normal 26.7-34.0 [facility] Comment on above: Performed By: #### C BC #### [facility] [address] [place] [address] Dr. Hu Can MCHC (RBC) [Mass/Vol] 32.5 g/dL Normal 29.9-35.2 [facility] Comment on above: Performed By: #### C BC #### [facility] [address] [place] [address] Dr. Hu Can MCV (RBC) [Entitic vol] 89.6 fL Normal 81.0-99.0 [facility] Comment on above: Performed By: #### C BC #### [facility] [address] [place] [address] Dr. Hu Can MONO # 0.5 103/ul Normal 0.3-0.8 [facility] Comment on above: Performed By: #### C BC #### [facility] [address] [place] [address] Dr. Hu Can Monocytes/100 WBC (Bld) 6.8 % Normal 1.7-12.0 [facility] Comment on above: Performed By: #### C BC #### [facility] [address] [place] [address] [address] Hu Can NEUT # 4.6 103/ul Normal 1.4-6.5 [facility] Comment on above: Performed By: #### C BC #### [facility] [address] [place] [address] [address] Hu Can Neutrophils/100 WBC (Bld) 61.0 % Normal 43.0-75.0 [facility] Comment on above: Performed By: #### C BC #### [facility] [address] [address] [address] Hu Can Platelet mean volume (Bld) [Entitic vol] 9.3 fL Critically low 9.5-13.5 [facility] Comment on above: Performed By: #### C BC #### [facility] [address] [place] [address] Dr. Hu Can PLT 296 103/ul Normal 150-450 [facility] Comment on above: Performed By: #### C BC #### [facility] [address] [place] [address] Dr. Hu Can RBC 4.98 106/ul Normal 4.20-5.40 [facility] Comment on above: Performed By: #### C BC #### [facility] [address] [place] [address] Dr. Hu Can WBC 7.5 103/ul Normal 4.0-11.0 [facility] Comment on above: Performed By: #### C BC #### [facility] [address] [place] [address] Dr. Hu Can GLYCOHEMOGLOBIN A1Con 2021 ADA RECOMMENDATION SEE BELOW Normal [facility] Comment on above: Result Comment: ADA RECOMMENDED LIMIT 4.0 - 6.0 ADA THERAPEUTIC TARGET < 7.0 ACTION SUGGESTED > 7.0 Performed By: #### A 1C #### [facility] [address] [place] [address] Dr. Hu Can Glucose [Mass/Vol] 114 mg/dL Normal [facility] Comment on above: Performed By: #### A 1C #### [facility] [address] [address] [address] Hu Can HbA1c (Bld) [Mass fraction] 5.6 % Normal 4.5-6.2 [facility] Comment on above: Performed By: #### A 1C #### [facility] [address] [address] [address] Hu Can LIPID PROFILEon 12-13-2021 CHOL-HDL RATIO NORM SEE BELOW Normal [facility] Comment on above: Result Comment: 3.3 - 4.4 LOW RISK 4.4 - 7.1 AVERAGE RISK 7.1 - 11.0 MODERATE RISK >11.0 HIGH RISK Performed By: #### T SH, CMP, LIPID ####[facility] [address] [place] [address]DrAusten Can Cholesterol [Mass/Vol] 279 mg/dL Critically high <=200 [facility] Comment on above: Performed By: #### T SH, CMP, LIPID ####[facility] [address] [place] [address]DrAusten Can Cholesterol in HDL [Mass/Vol] 50 mg/dL Normal 40-60 [facility] Comment on above: Performed By: #### T SH, CMP, LIPID ####[facility] [address] [place] [address]DrAusten Can Cholesterol in LDL [Mass/Vol] 197.8 mg/dL Normal [facility] Comment on above: Performed By: #### T SH, CMP, LIPID ####[facility] [address] [place] [address]Dr. Hu Can Cholesterol.total/ Cholesterol in HDL [Mass ratio] 5.6 {ratio} Normal [facility] Comment on above: Performed By: #### T SH, CMP, LIPID ####[facility] [address] [place] [id number]. Hu Can HDL NORMAL > or = 60 mg/dl - LO W CARDIOVASCULAR RISK <40 mg/dl - HIGH CARDIOVASCULAR RISK Normal [facility] Comment on above: Performed By: #### T SH, CMP, LIPID ####[facility] [address] [place] [id number]. Hu Can LDL CALC NORMAL SEE BELOW Normal [facility] Comment on above: Result Comment: <100 mg/dl OPTIMAL 100 - 129 mg/dl NEAR OR ABOVE OPTIMAL 130 - 159 mg/dl BORDERLINE HIGH 160 - 189 mg/dl HIGH >190 mg/dl VERY HIGH Performed By: #### T SH, CMP, LIPID ####[facility] [address] [place] [address]Dr. uH Can Triglyceride [Mass/Vol] 156 mg/dL Critically high <=150 [facility] Comment on above: Performed By: #### T SH, CMP, LIPID ####[facility] [address] [place] [address]Dr. Hu Can VLDL CALC 31.2 mg/dL Normal [facility] Comment on above: Performed By: #### T SH, CMP, LIPID ####[facility] [address] [place] [address]Dr. Hu Can PROF 14(COMP METB)on 022 Albumin [Mass/Vol] 3.8 g/dL Normal 3.4-5.0 [facility] Comment on above: Performed By: #### T SH, CMP, LIPID ####[facility] [address] [place] [address]Dr. Hu Can Albumin/Globulin [Mass ratio] 1.2 {ratio} Normal [facility] Comment on above: Performed By: #### T SH, CMP, LIPID ####[facility] [address] [place] [address]Dr. Hu Can ALP [Catalytic activity/Vol] 74 U/L Normal 46-116 [facility] Comment on above: Performed By: #### T SH, CMP, LIPID ####[facility] [address] [place] [address]Dr. Hu Can ALT [Catalytic activity/Vol] 19 U/L Normal 14-59 [facility] Comment on above: Performed By: #### T SH, CMP, LIPID ####[facility] [address] [place] [address]Dr. Hu Can Anion gap [Moles/Vol] 11.0 mmol/L Normal [facility] Comment on above: Performed By: #### T SH, CMP, LIPID ####[facility] [address] [place] [address]Dr. Hu Can AST [Catalytic activity/Vol] 12 U/L Critically low 15-37 [facility] Comment on above: Performed By: #### T SH, CMP, LIPID ####[facility] [address] [place] [address]Dr. Hu Can Bilirubin [Mass/Vol] 0.7 mg/dL Normal 0.2-1.0 [facility] Comment on above: Performed By: #### T ABDI, CMP, LIPID ####[facility] [address] [place] [address]Dr. Hu Can Calcium [Mass/Vol] 8.7 mg/dL Normal 8.5-10.1 [facility] Comment on above: Performed By: #### T ABDI, CMP, LIPID ####[facility] [address] [place] [address]Dr. Hu Can Chloride [Moles/Vol] 102 mmol/L Normal 98-107 [facility] Comment on above: Performed By: #### T ABDI, CMP, LIPID ####[facility] [address] [place] [id number]. Hu Can CO2 [Moles/Vol] 28.2 mmol/L Normal 21.0-32.[address] [facility] Comment on above: Performed By: #### T ABDI, CMP, LIPID ####[facility] [address] [place] [address]Dr. Hu Can Creatinine [Mass/Vol] 0.91 mg/dL Normal 0.55-1.02 [facility] Comment on above: Performed By: #### T SH, CMP, LIPID ####[facility] [address] [place] [address]Dr. Hu Can EGFR-AF [facility] >60 Normal >=[address] [facility] Comment on above: Performed By: #### T SH, CMP, LIPID ####[facility] [address] [place] [id number]. Hu Can EGFR-NON AF [facility] >60 Normal >=60 [facility] Comment on above: Performed By: #### T SH, CMP, LIPID ####[facility] [address] [place] [address]Dr. Hu Can Globulin (S) [Mass/Vol] 3.3 g/dL Normal [facility] Comment on above: Performed By: #### T ABDI, CMP, LIPID ####[facility] [address] [place] [address]Dr. Hu Can Glucose [Mass/Vol] 105 mg/dL Normal 74-106 [facility] Comment on above: Performed By: #### T ABDI, CMP, LIPID ####[facility] [address] [place] [address]Dr. Hu Can Potassium [Moles/Vol] 4.2 mmol/L Normal 3.5-5.1 [facility] Comment on above: Performed By: #### T ABDI, CMP, LIPID ####[facility] [address] [place] [address]Dr. Hu Can Protein [Mass/Vol] 7.1 g/dL Normal 6.4-8.2 [facility] Comment on above: Performed By: #### T ABDI, CMP, LIPID ####[facility] [address] [place] [address]Dr. Hu Can Sodium [Moles/Vol] 137 mmol/L Normal 136-145 [facility] Comment on above: Performed By: #### T SH, CMP, LIPID ####[facility] [address] [place] [address]Dr. Hu Can Urea nitrogen [Mass/Vol] 23.0 mg/dL Critically high 7.0-18.0 [facility] Comment on above: Performed By: #### T SH, CMP, LIPID ####[facility] [address] [place] [address]Dr. Hu Can Urea nitrogen/Creatinin e [Mass ratio] 25.3 mg/mg Normal [facility] Comment on above: Performed By: #### T SH, CMP, LIPID ####[facility] [address] [place], [place] [address]Td. Hu Can TSHon 12-13-2021 TSH 1.249 uIU/mL Normal 0.358-3.740 [facility] Comment on above: Performed By: #### T SH, CMP, LIPID ####[facility] [address] [place], [place] [address]Jf. Hu Can XR CSPINE MIN 4 VIEWSon [...] by: AL CAMPOS Date: 2021-12-07 19:[address] [facility] MG MAMM SCREEN 3D HIEU CADon 10-28-2021 MG MAMM SCREEN 3D HIEU CAD Patient: THERESA REYES Exam Date: 10/28/2021 : 1970 Gender:F Ordering : DR GABBY DEE . Admission #: [id number] Family : Order #: [id number] CLICK HERE TO VIEW EXAM RADIOLOGY REPORT [...] ovarian cancer at age 80. LOCATION: [facility] BREAST COMPOSITION: Scattered areas fibroglandular density. FINDINGS: [...] M.D. on 10/28/2021 at 12:02 Normal [facility] Covid-19 PCR (CVDTB)on 09-15 SARS-CoV-2 (COVID-19) RNA CLARISSA+probe Ql (Unsp spec) Not detected Normal NOT DETECTED [facility] Comment on above: Result Comment: When diagnostic [...] for this test is supported by the [place] of Health and Human Service's declaration that [...] used). Performed By: #### C VDTB #### [facility] [address] [place] [address] Dr. Hu Can Covid-19 PCR (CVDTB)on 09-14 SARS-CoV-2 (COVID-19) RNA CLARISSA+probe Ql (Unsp spec) Detected Critically abnormal NOT DETECTED [facility] Comment on above: Result Comment: This test is not yet approved or cleared by the [place] FDA. When there are no FDA-approved or cleared tests available, and other criteria are met, FDA can make tests available under an emergency access mechanism called an Emergency Use Authorization (EUA). The EUA for this test is supported by the Podiatric Surgeon of Health and Human Service's declaration that [...] longer be used). Performed By: #### C PENDING SALE TO [facility] ####[facility] [address] [place], [place] [address]Jf. Hu Can Pathology Noteon 07-12-2021 Pathology Note [id number]#1.00C D:[address] [facility] Vital Signs Date Time Vital Sign Value Performing Clinician Facility 09-02-2022 09:30-0400 Body height 170.18 cm [facility] Other [facility] Other 09-02-2022 09:30-0400 Body mass index (BMI) [Ratio] 30.85 kg/m2 [facility] Other [facility] Other 09-02-2022 09:30-0400 Body weight 89.36 kg [facility] Other [facility] Other 04-08-2022 15:14-0500 Blood Pressure Location LizhiL [facility] 04-08-2022 15:14-0500 Diastolic blood pressure 88 mm[Hg] Morris nuevoStageL [facility] 04-08-2022 15:14-0500 Heart rate 72 /min Morris nuevoStageL [facility] 04-08-2022 15:14-0500 Respiratory rate 16 /min Morris MORGANL [facility] 04-08-2022 15:14-0500 Systolic blood pressure 128 mm[Hg] Morris MORGANL [facility] [place] Encounters Encounter Date Encounter Type Care Provider Facility Start: 01-02-2023 End: 01-02-2023 ambulatory Diamond Case Other [facility] Other Start: 01-02-2023 Office outpatient vi sit 15 minutes Diamond Calvey [facility] Start: 09-23-2022 End: 09-23-2022 ambulatory Diamond Calvey Other [facility] Other Start: 09-23-2022 Office outpatient vi sit 15 minutes Diamond Calvey [facility] Start: 09-02-2022 End: 09-02-2022 ambulatory Diamond Calvey Other [facility] Other Start: 09-02-2022 Office outpatient vi sit 15 minutes Diamond Calvey [facility] Start: 07-08-2022 End: 07-08-2022 ambulatory Diamond Calvey Other [facility] Other Start: 07-08-2022 Office outpatient vi sit 15 minutes Diamond Calvey [facility] Start: 06-03-2022 Office outpatient vi sit 15 minutes Diamond Calvey [facility] Start: 06-03-2022 End: 06-03-2022 ambulatory Diamond Case Facility:[facility] Start: 06-03-2022 End: 06-03-2022 ambulatory MD Diamond Case Work Phone: [facility] Work Phone: Start: 06-03-2022 End: 06-03-2022 Patient encounter procedure MD Diamond Case Work Phone: [facility] Start: 05-16-2022 End: 05-17-[address] GABBY DEE . Facility:[facility] Start: 05-14-2022 End: 05-22-[address] GABBY DEE . Facility:[facility] Start: 05-07-2022 End: 05-08-2022 ambulatory Morris CAGLE Facility:CD:[id number] Start: 05-06-2022 End: 05-06-2022 ambulatory Diamond Case Other [place] Other Start: 05-06-2022 Office outpatient ne w 30 minutes Diamond Case [facility] Start: 04-08-2022 End: 04-09-2022 ambulatory Morris CAGLE Facility:[facility] Start: 04-08-2022 End: 04-08-2022 Patient encounter procedure Morris CAGLE [facility] [place] Start: 03-16-[address] GABBY DEE . Facili ty:[facility] Start: 02-26-2022 End: 02-26-[address] GABBY DEE . Facility:[facility] Start: 01-01-2022 End: 01-31-[address] GABBY DEE . Facility:[facility] Start: 12-16-2021 Encounter for genera l adult medical examination without abnormal findings DR GABBY DEE . [facility] Start: 12-13-2021 End: 12-14-[address] GABBY [...] Ganglion cyst of rig ht foot Morris NILL Immunizations Immunization Date Immunization Notes Care Provider Fa cility 12-14-2021 influenza virus vaccine, unspecified formulation Morris MORGANL [facility] [place] 04-30-2020 SARS-CoV-2 (COVID-19 ) Ad26 vaccine, recombinant Morris NILL [facility] [place] 04-02-2020 SARS-CoV-2 (COVID-19 ) Ad26 vaccine, recombinant Morris NILL [facility] [place] Payers Date Payer Category Payer Self-pay 2022 Unknown [id number] 2019 Unknown [id number] 1970 Unknown [id number] 2.16.8 [id number] 1970 Unknown [id number] 2.16.8 40.1.697575.3.579.2.727 1970 Unknown [id number] 2.16.84 0.1.737102.3.579.2.593 1970 Unknown [id number] 2.16.84 0.1.957689.3.579.2.593 1970 Unknown [id number] 2.16.84 0.1.861752.3.579.2.593 1970 Unknown [id number] 2.16.84 0.1.573180.3.579.2.593 1970 Unknown [id number] 2.16.84 0.1.886229.3.579.2.593 1970 Unknown [id number] 2.16.84 0.1.462234.3.579.2.593 1970 Unknown [id number] 2.16.84 0.1.228848.3.579.2.593 1970 Unknown [id number] 2.16.84 0.1.857712.3.579.2.593 1970 Unknown [id number] 2.16.84 0.1.880065.3.579.2.593 1970 Unknown [id number] 2.16.84 0.1.190358.3.579.2.593 1970 Unknown [id number] 2.16.84 0.1.345785.3.579.2.593 1959 Self-pay [id number] Unknown [id number] 2.16.8 40.1.107029.3.579.2.531 Social History Date Type Detail Facility Start: 04-08-2022 Tobacco smoking status Never s moked tobacco (finding) [facility] [place] Tobacco smoking status Never [facility] [place] Sex Assigned At Female [facility] Start: 1970 Sex Assigned At Female [facility] Functional Status Date Assessment Result Facility 04-08-2022 Functional Status N/A General [facility] Clinical Notes 12-07-2021 to 01-02-2023 Note Date [...] well as cortisone injection and surgical release. [facility] Other 07-11-2023 Evaluation note* Encounter Date Diagnosis [...] Left hand pain (ICD- 10 - M79.642) [facility] Other 06-20-2023 Evaluation note* Encounter Date Diagnosis [...] joint of left hand (ICD-10 - M18.12) [facility] Other 2023 Evaluation note* Encounter Date Diagnosis [...] joint of left hand (ICD-10 - M18.12) [facility] Other 03-21-2023 Evaluation note* Encounter Date Diagnosis [...] and tingle for hours after this injection. [facility] Other 03-04-2023 NotePROCEDURE: XR FOOT RT MIN [...] Electronically authenticated by: AL CAMPOS Date: 2022-05-17 12:06[facility]02-22-2023 NoteOPERATIVE NOTE OPERATION DATE: 05/07/2022 PREOPERATIVE DIAGNOSIS: [...] in good condition. CC: Gabby Dee M.D.[id number] NoteOPERATIVE NOTE OPERATION DATE: 05/07/2022 ADDENDUM: The distal rectal 4 mm irregular flat polyp was removed with hot snare with good hemostasis, not with cold biopsy forceps.[facility] 05-06-2022 Evaluation note* Encounter Date Diagnosis Assessment [...] Apr, Right hand pain (ICD-10 - M79.641) [facility] Other 09-24-2022 NotePROCEDURE: XR SHOULDER LT 2V or > COMPARISON: None. HISTORY: Impingement syndrome of shoulder region FINDINGS: BONES:No fracture, acute abnormality, or significant arthropathy. SOFT TISSUES:Negative. No visible soft tissue swelling. EFFUSION:None visible. OTHER: Negative. IMPRESSION: No acute disease. Electronically authenticated by: AL CAMPOS Date: 2021-12-07 19:36[facility] No data available for this section [facility] [place] Evaluation noteNo assessment information available [facility] Work Phone: History general Narrative - Reported* Type Description Date Medical History high cholesterol Surgical History Foot Surgery Surgical History clogged tear duct [facility] Other Hospital Discharge instructions No data available for this section General Surgery [facility] Progress note No data available for this section General Surgery [facility] Summary Purpose Family History No Family History [...] section and content) DATE CREATED AUTHOR 05/16/2022 [employer] [facility] DATE CREATED AUTHOR AUTHOR'S ORGANIZ ATION 06/18/2022 [facility] DATE CREATED AUTHOR AUTHOR'S ORGANIZ ATION 06/21/2022 [facility] REASON FOR VISIT (unrecogniz ed [...] BE BASED ON THE PRIMARY CLINICAL RECORDS. [employer] provides no warranty or guarantee of the accuracy or completeness of information in this document.
== END 2023-07-03 09:07 | disposition home or self-care (01) ==
LOC: EC 09:06
PROVIDERS: PCP Family Medicine; Visit Provider Orthopaedic Surgery Orthopaedic Surgery of the Spine
DX: Z47.89 Encounter for other orthopedic aftercare (principal)
CPT/HCPCS: 72040

== ENCOUNTER 2023-08-21 08:27 | Outpatient (OUT) | payer BC, SELFPAY ==
--- NOTE | 2023-08-21 | XR_ITS ---
[address] [address] Patient Name: THERESA JOSHUA MRN: [id number] date: 1970 Sex: F Assigned Patient Location: Current Patient Location: Accession/Order Number: [id number] Exam Date: 08/21/2023 08:30 Report Date: 08/22/2023 06:57 At the request of: KRAIG ANG Procedure: XR cervical spine 2-3V EXAMINATION: XR cervical spine 2-3V HISTORY: NECK PAIN COMPARISON: XR cervical spine 07/03/2023 FINDINGS: BONES: Mechanical fusion C3-C4-5-6 via anterior plate and screws; no appreciable hardware fracture loosening. No bone fracture or spondylolisthesis. Multilevel mild degenerative facet arthropathy. DISC SPACES: Intravertebral disc spacers at C3-C4, C4-C5, C5-C6. Mild-moderate disc space narrowing C6-C7. PARASPINOUS: Negative. No paraspinous abnormality is seen. OTHER: Negative. XR/XR cervical spine 2-3V IMPRESSION: 1. Stable surgical changes without evidence of hardware failure or change in alignment. 2. Stable mild degenerative changes. Electronically authenticated by: GABRIEL SANDERSON Date: 08/22/2023 06:57
--- OUTSIDE RECORDS SUMMARY | 2023-08-21 08:34 | XMS_ITS | CCD ---
Author Organization [facility] Care Team Providers Care Hat Binder Name Role Phone Gabby Dee Primary Care [...] HOY ., DR PIERRE Primary Care Unavailable LEEANNE BRADLEY Admitting Unavailable KIRKLEEANNE RIGGINS Admitting Unavailable LEEANNE BRADLEY Consulting Unavailable LEEANNE BRADLEY Attending Unavailable MONICA ., DR GONSALES Primary Care Unavailable HOY ., DR PIERRE Attending Unavailable HOY ., DR PIERRE Primary Care Unavailable HOY ., DR PIERRE Consulting Unavailable HOY ., DR PIERRE Admitting Unavailable [place], DR AL Shaikh Consulting Unavailable HOY ., [...] Unavailable HOY ., DR PIERRE Consulting Unavailable [place], DR AL Shaikh Consulting Unavailable HOY ., DR PIERRE Admitting Unavailable HOY ., DR PIERRE Attending Unavailable HOY ., DR PIERRE Primary Care Unavailable Allergies Allergy Classification Reported Allergen(s) Allergy Type Date of Onset Reaction(s) Facility (1 source) No Known Medication Allergies; Translations: [No Known Medication Allergies] Propensity to adverse reactions (disorder) [facility] Repository (2 sources) Baclofen Drug Allergy [facility] Repository Medications Current Medications Medication [...] 3V*on 023 XR hand LT min 3V* [facility] Main [address] [address] XRay Report Signed Patient: Theresa Reyes MR#: [id number] : 1970 Acct:[id number] Age/Sex: 52 / F ADM Date: 06/03/22 Loc: SOXD Room: Type: [facility] Attending Dr: Diamond Case MD Copies to: [...] Miguel Ramey M.D.06/03/2022 1:11 PM Dictation Location: [place] [address] Transcribed By: [facility] 06/03/22 1311 Dictated By: Miguel Ramey II, MD 06/03/22 1310 Signed By: 06/03/22 1311 Normal [facility] XR hand LT min 3V* [facility] [employer] Other XR hand LT min 3V* [facility] [employer] Other XR hand LT min 3V* [address] [place] [address] [employer] Other XR hand LT min 3V* [place] [address] [facility] [employer] Other XR hand LT min 3V* XRay Report [employer] Other XR hand LT min 3V* Signed [employer] Other XR hand LT min 3V* Patient: Theresa Reyes MR#: [id number] [facility] [employer] Other XR hand LT min 3V* [id number] [employer] Other XR hand LT min 3V* : 1970 Acct:[id number] [employer] Other XR hand LT min 3V* Age/Sex: 52 / F ADM Date: 06/03/22 [employer] Other XR hand LT min 3V* Loc: SOXD Room: Type : [facility] [employer] Other XR hand LT min 3V* Attending Dr: Benny Case MD [employer] Other XR hand LT min 3V* Copies to: Diamond Case MD [employer] Other XR hand LT min 3V* Ordering Provider: Diamond Case MD [employer] Other XR hand LT min 3V* Date of Service: 06/03/22 [employer] Other XR hand LT min 3V* XR/XR hand LT min 3V*: PAIN [employer] Other XR hand LT min 3V* XR hand LT min 3V* 06/03/2022 8:44 AM [employer] Other XR hand LT min 3V* SIGNS AND SYMPTOMS: Left thumb/first metacarpal pain [employer] Other XR hand LT min 3V* PROTOCOL: Frontal, lateral, and oblique radiographs of the left hand: [employer] Other XR hand LT min 3V* COMPARISON: None [employer] Other XR hand LT min 3V* FINDINGS: [employer] Other XR hand LT min 3V* The bones are in anatomic alignment. There is mild degenerative change at the first carpometacarpal [employer] Other XR hand LT min 3V* junction. There is preservation of the joint spaces, otherwise. There is no fracture or dislocation. [employer] Other XR hand LT min 3V* No significant soft tissue swelling. [employer] Other XR hand LT min 3V* XR/XR hand LT min 3V* [employer] Other XR hand LT min 3V* IMPRESSION: [employer] Other XR hand LT min 3V* No acute bony injury. [employer] Other XR hand LT min 3V* Mild degenerative fa cet noted at the base of the thumb. [employer] Other XR hand LT min 3V* Impression dictated by: Miguel Ramey M.D.06/03/2022 1:11 PM [employer] Other XR hand LT min 3V* Dictation Location: [place] [address] [employer] Other XR hand LT min 3V* Transcribed By: KARRIE 06/03/22 [facility] [employer] Other XR hand LT min 3V* Dictated By: Miguel Ramey II, MD 06/03/22 [facility] [employer] Other XR hand LT min 3V* Signed By: [employer] Other XR hand LT min 3V* 06/03/[address] [place] [address] [employer] Other [employer] 05-15-2022 Reminders - From: Jessica Mims LPN To: GSN - Clinical; Sent: 05/15/2022 07:57:39 EST Show up: 04/06/2025 07:00:00 EST Subject: colonoscopy recall Due Date/Time: 05/07/2025 07:00:00 EST Reminder/Recall Patient is due for colonoscopy 05/07/2025 due to history of tubulovillous adenoma. Normal [facility] Pathology Noteon 05-09-2022 Pathology Note [id number]#1.00CD :127 Normal [facility] Outside Colonoscopyon 2022 Outside Colonoscopy [id number]#1.00C D:127 Normal [facility] PREG HCG QUALon 05-07-2022 , QUAL Negative Normal NEGATIVE [facility] Comment on above: Performed By: #### P REG #### [facility] [address] [place] [address] [address] Hu Can Pre-Certification Formon Pre-Certification Form [id number]#1.00 CD:127 Normal [facility] Consent for Procedure/Surger yon 04-10-2022 Consent for Procedure/Surgery [id number]#1.00C D:127 Normal [facility] Facesheeton 04-10-2022 Facesheet [id number]#1.00C D:127 Normal [facility] General Surgery Office/Clini c Noteon [...] SARS-CoV-2 (COVID-19) Ad26 vaccine 04/02/2020 Recorded Normal [facility] Comment on above: Result Comment: Elec tronically Signed By: JEFF PONCE, Morris Nelson\Date and Time Signed: 04/08/22 15:33 EST Covid-19 PCR (CVDTB)on 02-13 SARS-CoV-2 (COVID-19) RNA CLARISSA+probe Ql (Unsp spec) Not detected Normal NOT DETECTED [facility] Comment on above: Result Comment: [...] for this test is supported by the Head Rose Grower of Health and Human Service's declaration that [...] used). Performed By: #### C VDTB #### [facility] [address] [place] [address] Dr. Hu Can INFLUENZA A AND B AGon 02-26 [facility] SEE BELOW Normal [facility] Comment on above: Result Comment: Nega tive for Flu A protein angiten. Infection due to Flu A cannot be ruled out. Flu A angiten in the sample may be below the detection limit of the test. Performed By: #### I NFLUAB #### [facility] [address] [place] [address] Dr. [facility] BEL[facility] Normal [facility] Comment on above: Result Comment: Nega tive for Flu B protein antigen. Infection due to Flu B cannot be ruled out. Flu B antigen in the sample may be below the detection limit of the test. Performed By: #### I NFLUAB #### [facility] [address] [place] [address] Dr. Hu Cna INFLUENZA A AG Negative Normal NEGATIVE SEE COMMENT [facility] Comment on above: Performed By: #### I NFLUAB #### [facility] [address] [place] [address] Dr. Hu Can INFLUENZA B AG Negative Normal NEGATIVE SEE COMMENT [facility] Comment on above: Performed By: #### I NFLUAB #### [facility] [address] [place] [address] Dr. Hu Can INTERNAL CONTROLS Within Normal Limits Normal Wi thin Normal Limits [facility] Comment on above: Performed By: #### I NFLUAB #### [facility] [address] [place] [address] Dr. Hu Can CBC AUTO DIFFon 12-13-2021 BASO # 0.0 103/ul Normal 0.0-0.1 [facility] Comment on above: Performed By: #### C BC #### [facility] [address] [address] [address] Hu Can Basophils/100 WBC (Bld) 0.3 % Normal 0.2-2.0 [facility] Comment on above: Performed By: #### C BC #### [facility] [address] [address] [address] Hu Can EO # 0.1 103/ul Normal 0.0-0.7 [facility] Comment on above: Performed By: #### C BC #### [facility] [address] [place] [address] Dr. Hu Can Eosinophils/100 WBC (Bld) 1.1 % Normal 0.9-7.0 [facility] Comment on above: Performed By: #### C BC #### [facility] [address] [place] [address] Dr. Hu Can Erythrocyte distribution width (RBC) [Ratio] 13.7 % Normal 11.0-15.0 [facility] Comment on above: Performed By: #### C BC #### [facility] [address] [place] [address] Dr. Hu Can Hematocrit (Bld) [Volume fraction] 44.6 % Normal 36.0-48.0 [facility] Comment on above: Performed By: #### C BC #### [facility] [address] [place] [address] Dr. Hu Can Hemoglobin (Bld) [Mass/Vol] 14.5 g/dL Normal 12.0-16.0 [facility] Comment on above: Performed By: #### C BC #### [facility] [address] [place] [address] Dr. Hu Can IG # 0.02 10e3/ul Normal 0.00-0.03 [facility] Comment on above: Performed By: #### C BC #### [facility] [address] [place] [address] Dr. Hu Can IG % 0.3 % Normal 0.0-0.5 [facility] Comment on above: Performed By: #### C BC #### [facility] [address] [place] [address] Dr. Hu Can LYMPH # 2.3 103/ul Normal 1.2-3.8 [facility] Comment on above: Performed By: #### C BC #### [facility] [address] [place] [address] Dr. Hu Can Lymphocytes/100 WBC (Bld) 30.5 % Normal 20.5-60.0 [facility] Comment on above: Performed By: #### C BC #### [facility] [address] [place] [address] Dr. Hu Can MANUAL DIFF REQ NO Normal [facility] Comment on above: Performed By: #### C BC #### [facility] [address] [place] [address] Dr. Hu Can MCH (RBC) [Entitic mass] 29.1 pg Normal 26.7-34.0 [facility] Comment on above: Performed By: #### C BC #### [facility] [address] [place] [address] Dr. Hu Can MCHC (RBC) [Mass/Vol] 32.5 g/dL Normal 29.9-35.2 [facility] Comment on above: Performed By: #### C BC #### [facility] [address] [place] [address] Dr. Hu Can MCV (RBC) [Entitic vol] 89.6 fL Normal 81.0-99.0 [facility] Comment on above: Performed By: #### C BC #### [facility] [address] [place] [address] Dr. Hu Can MONO # 0.5 103/ul Normal 0.3-0.8 [facility] Comment on above: Performed By: #### C BC #### [facility] [address] [place] [address] Dr. Hu Can Monocytes/100 WBC (Bld) 6.8 % Normal 1.7-12.0 [facility] Comment on above: Performed By: #### C BC #### [facility] [address] [address] [address] Hu Can NEUT # 4.6 103/ul Normal 1.4-6.5 [facility] Comment on above: Performed By: #### C BC #### [facility] [address] [address] [address] Hu Can Neutrophils/100 WBC (Bld) 61.0 % Normal 43.0-75.0 [facility] Comment on above: Performed By: #### C BC #### [facility] [address] [address] [address] Hu Can Platelet mean volume (Bld) [Entitic vol] 9.3 fL Critically low 9.5-13.5 [facility] Comment on above: Performed By: #### C BC #### [facility] [address] [place] [address] Dr. Hu Can PLT 296 103/ul Normal 150-450 [facility] Comment on above: Performed By: #### C BC #### [facility] [address] [place] [address] Dr. Hu Can RBC 4.98 106/ul Normal 4.20-5.40 [facility] Comment on above: Performed By: #### C BC #### [facility] [address] [place] [address] Dr. Hu Can WBC 7.5 103/ul Normal 4.0-11.0 [facility] Comment on above: Performed By: #### C BC #### [facility] [address] [place] [address] Dr. Hu Can GLYCOHEMOGLOBIN A1Con 2021 ADA RECOMMENDATION SEE BELOW Normal [facility] Comment on above: Result Comment: ADA RECOMMENDED LIMIT 4.0 - 6.0 ADA THERAPEUTIC TARGET < 7.0 ACTION SUGGESTED > 7.0 Performed By: #### A 1C #### [facility] [address] [place] [address] Dr. Hu Can Glucose [Mass/Vol] 114 mg/dL Normal [facility] Comment on above: Performed By: #### A 1C #### [facility] [address] [place], [place] [address] Dr. Hu Can HbA1c (Bld) [Mass fraction] 5.6 % Normal 4.5-6.2 [facility] Comment on above: Performed By: #### A 1C #### [facility] [address] [address] [address] Hu Can LIPID PROFILEon 12-13-2021 CHOL-HDL RATIO NORM SEE BELOW Normal [facility] Comment on above: Result Comment: 3.3 - 4.4 LOW RISK 4.4 - 7.1 AVERAGE RISK 7.1 - 11.0 MODERATE RISK >11.0 HIGH RISK Performed By: #### T SH, CMP, LIPID ####[facility] [address] [place] [address]Dr. Hu Can Cholesterol [Mass/Vol] 279 mg/dL Critically high <=200 [facility] Comment on above: Performed By: #### T SH, CMP, LIPID ####[facility] [address] [place] [address]Dr. Hu Can Cholesterol in HDL [Mass/Vol] 50 mg/dL Normal 40-60 [facility] Comment on above: Performed By: #### T SH, CMP, LIPID ####[facility] [address] [place] [address]Dr. Hu Can Cholesterol in LDL [Mass/Vol] 197.8 mg/dL Normal [facility] Comment on above: Performed By: #### T SH, CMP, LIPID ####[facility] [address] [place] [address]Dr. Hu Can Cholesterol.total/ Cholesterol in HDL [Mass ratio] 5.6 {ratio} Normal [facility] Comment on above: Performed By: #### T SH, CMP, LIPID ####[facility] [address] [place] [address]Dr. Hu Can HDL NORMAL > or = 60 mg/dl - LO W CARDIOVASCULAR RISK <40 mg/dl - HIGH CARDIOVASCULAR RISK Normal [facility] Comment on above: Performed By: #### T SH, CMP, LIPID ####[facility] [address] [place] [address]Dr. Hu Can LDL CALC NORMAL SEE BELOW Normal [facility] Comment on above: Result Comment: <100 mg/dl OPTIMAL 100 - 129 mg/dl NEAR OR ABOVE OPTIMAL 130 - 159 mg/dl BORDERLINE HIGH 160 - 189 mg/dl HIGH >190 mg/dl VERY HIGH Performed By: #### T SH, CMP, LIPID ####[facility] [address] [place] [address]Dr. Hu Can Triglyceride [Mass/Vol] 156 mg/dL Critically high <=150 [facility] Comment on above: Performed By: #### T SH, CMP, LIPID ####[facility] [address] [place] [address]Dr. Hu Can VLDL CALC 31.2 mg/dL Normal [facility] Comment on above: Performed By: #### T SH, CMP, LIPID ####[facility] [address] [place] [address]Dr. Hu Can PROF 14(COMP METB)on 022 Albumin [Mass/Vol] 3.8 g/dL Normal 3.4-5.0 [facility] Comment on above: Performed By: #### T SH, CMP, LIPID ####[facility] [address] [place], [place] [address]Dr. Hu Can Albumin/Globulin [Mass ratio] 1.2 {ratio} Normal [facility] Comment on above: Performed By: #### T SH, CMP, LIPID ####[facility] [address] [place] [address]Dr. Hu Can ALP [Catalytic activity/Vol] 74 U/L Normal 46-116 [facility] Comment on above: Performed By: #### T SH, CMP, LIPID ####[facility] [address] [place] [address]Dr. Hu Can ALT [Catalytic activity/Vol] 19 U/L Normal 14-59 [facility] Comment on above: Performed By: #### T SH, CMP, LIPID ####[facility] [address] [place] [address]Dr. Hu Can Anion gap [Moles/Vol] 11.0 mmol/L Normal [facility] Comment on above: Performed By: #### T ABDI, CMP, LIPID ####[facility] [address] [place] [address]Dr. Hu Can AST [Catalytic activity/Vol] 12 U/L Critically low 15-37 [facility] Comment on above: Performed By: #### T SH, CMP, LIPID ####[facility] [address] [place] [address]Dr. Hu Can Bilirubin [Mass/Vol] 0.7 mg/dL Normal 0.2-1.0 [facility] Comment on above: Performed By: #### T ABDI, CMP, LIPID ####[facility] [address] [place] [address]Dr. Hu Can Calcium [Mass/Vol] 8.7 mg/dL Normal 8.5-10.1 [facility] Comment on above: Performed By: #### T ABDI, CMP, LIPID ####[facility] [address] [place] [address]Dr. Hu Can Chloride [Moles/Vol] 102 mmol/L Normal 98-107 [facility] Comment on above: Performed By: #### T SH, CMP, LIPID ####[facility] [address] [place] [address]Dr. Hu Can CO2 [Moles/Vol] 28.2 mmol/L Normal 21.0-32.0 [facility] Comment on above: Performed By: #### T SH, CMP, LIPID ####[facility] [address] [place] [address]Dr. Hu Can Creatinine [Mass/Vol] 0.91 mg/dL Normal 0.55-1.02 [facility] Comment on above: Performed By: #### T SH, CMP, LIPID ####[facility] [address] [place] [address]Dr. Hu Can EGFR-AF NORTHERN IRISH >60 Normal >=60 [facility] Comment on above: Performed By: #### T SH, CMP, LIPID ####[facility] [address] [place] [id number]. Hu Can EGFR-NON AF NORTHERN IRISH >60 Normal >=60 [facility] Comment on above: Performed By: #### T SH, CMP, LIPID ####[facility] [address] [place] [id number]. Hu Can Globulin (S) [Mass/Vol] 3.3 g/dL Normal [facility] Comment on above: Performed By: #### T SH, CMP, LIPID ####[facility] [address] [place] [address]Dr. Hu Can Glucose [Mass/Vol] 105 mg/dL Normal 74-106 [facility] Comment on above: Performed By: #### T SH, CMP, LIPID ####[facility] [address] [place] [address]Dr. Hu Can Potassium [Moles/Vol] 4.2 mmol/L Normal 3.5-5.1 [facility] Comment on above: Performed By: #### T SH, CMP, LIPID ####[facility] [address] [place] [address]Dr. Hu Can Protein [Mass/Vol] 7.1 g/dL Normal 6.4-8.2 [facility] Comment on above: Performed By: #### T SH, CMP, LIPID ####[facility] [address] [place] [address]Dr. Hu Can Sodium [Moles/Vol] 137 mmol/L Normal 136-145 [facility] Comment on above: Performed By: #### T SH, CMP, LIPID ####[facility] [address] [place] [address]Dr. Hu Can Urea nitrogen [Mass/Vol] 23.0 mg/dL Critically high 7.0-18.0 [facility] Comment on above: Performed By: #### T SH, CMP, LIPID ####[facility] [address] [place] [address]Dr. Hu Can Urea nitrogen/Creatinin e [Mass ratio] 25.3 mg/mg Normal [facility] Comment on above: Performed By: #### T SH, CMP, LIPID ####[facility] [address] [place], [place] [address]Qj. Hu Can TSHon 12-13-2021 TSH 1.249 uIU/mL Normal 0.358-3.740 [facility] Comment on above: Performed By: #### T SH, CMP, LIPID ####[facility] [address] [place], [place] [address]Mr. Hu Can XR CSPINE MIN 4 VIEWSon [...] AL CAMPOS Date: 2021-12-07 19:38 Normal [facility] MG MAMM SCREEN 3D HIEU CADon 10-28-2021 MG MAMM SCREEN 3D HIEU CAD Patient: THERESA REYES Exam Date: 10/28/2021 : 1970 Gender:F Ordering : DR GABBY DEE . Admission #: [id number] Family : Order #: [id number] CLICK HERE TO VIEW EXAM RADIOLOGY REPORT [...] ovarian cancer at age 80. LOCATION: [facility] BREAST COMPOSITION: Scattered areas fibroglandular [...] M.D. on 10/28/2021 at 12:02 Normal [facility] Covid-19 PCR (CVDTB)on 09-15 SARS-CoV-2 (COVID-19) RNA CLARISSA+probe Ql (Unsp spec) Not detected Normal NOT DETECTED [facility] Comment on above: Result Comment: [...] for this test is supported by the Head Rose Grower of Health and Human Service's declaration that [...] longer be used). Performed By: #### C [facility] #### [facility] [address] [place] [address] Dr. Hu Can Covid-19 PCR (CVDTB)on 09-14 SARS-CoV-2 (COVID-19) RNA CLARISSA+probe Ql (Unsp spec) Detected Critically abnormal NOT DETECTED [facility] Comment on above: Result Comment: This test is not yet approved or cleared by the [place] FDA. When there are no FDA-approved or cleared tests available, and other criteria are met, FDA can make tests available under an emergency access mechanism called an Emergency Use Authorization (EUA). The EUA for this test is supported by the Head Rose Grower of Health and Human Service's declaration that [...] used). Performed By: #### C [facility] ####[facility] [address] [place], [place] [address]Tp. Hu Can Pathology Noteon 07-12-2021 Pathology Note [id number] D:127 Normal [facility] Vital Signs Date Time Vital Sign Value Performing Clinician Facility 09-02-2022 09:30-0400 Body height 170.18 cm [employer] Other [employer] Other 09-02-2022 09:30-0400 Body mass index (BMI) [Ratio] 30.85 kg/m2 [employer] Other [employer] Other 09-02-2022 09:30-0400 Body weight 89.36 kg Diamond KROGNI Other [employer] Other 04-08-2022 15:14-0500 Blood Pressure Location Morris CAGLE [facility] 04-08-2022 15:14-0500 Diastolic blood pressure 88 mm[Hg] Morris CAGLE [facility] 04-08-2022 15:14-0500 Heart rate 72 /min Morris CAGLE [facility] 04-08-2022 15:14-0500 Respiratory rate 16 /min Morris CAGLE [facility] 04-08-2022 15:14-0500 Systolic blood pressure 128 mm[Hg] Morris CAGLE [facility] [place] Encounters Encounter Date Encounter Type Care Provider Facility Start: 01-02-2023 End: 01-02-2023 ambulatory Diamond Case Other [employer] Other Start: 01-02-2023 Office outpatient vi sit 15 minutes Diamond Calvey [facility] Start: 09-23-2022 End: 09-23-2022 ambulatory Diamondgiorgi Case Other [employer] Other Start: 09-23-2022 Office outpatient vi sit 15 minutes Diamond Calvey [facility] Start: 09-02-2022 End: 09-02-2022 ambulatory Diamondgiorgi Case Other [employer] Other Start: 09-02-2022 Office outpatient vi sit 15 minutes Diamond Calvey [facility] Start: 07-08-2022 End: 07-08-2022 ambulatory Diamond Calvey Other [employer] Other Start: 07-08-2022 Office outpatient vi sit 15 minutes Diamond Calvey [facility] Start: 06-03-2022 Office outpatient vi sit 15 minutes Diamond Calvey [facility] Start: 06-03-2022 End: 06-03-2022 ambulatory Diamond Case Facility:[facility] Start: 06-03-2022 End: 06-03-2022 ambulatory MD Diamond Case Work Phone: [facility] Work Phone: Start: 06-03-2022 End: 06-03-2022 Patient encounter procedure MD Diamond Case Work Phone: [facility] Start: 05-16-2022 End: 05-17-[address] GABBY DEE . Facility: Start: 05-14-2022 End: 05-22-[address] GABBY DEE . Facility:[facility] Start: 05-07-2022 End: 05-08-2022 ambulatory Morris CAGLE Facility:CD:[id number] Start: 05-06-2022 End: 05-06-2022 ambulatory Diamond Case Other [employer] Other Start: 05-06-2022 Office outpatient ne w 30 minutes Diamond Case [facility] Start: 04-08-2022 End: 04-09-2022 ambulatory Morris CAGLE Facility:[facility] Start: 04-08-2022 End: 04-08-2022 Patient encounter procedure [facility] [place] Start: 03-16-[address] GABBY DEE . Facili ty:[facility] Start: 02-26-2022 End: 02-26-[address] GABBY DEE . Facility:[facility] Start: 01-01-2022 End: 01-31-[address] GABBY DEE . Facility:[facility] Start: 12-16-2021 Encounter for genera l adult medical examination without abnormal findings DR GABBY DEE . [facility] Start: 12-13-2021 End: 12-14-2021 ambulatory [...] vaccine, unspecified formulation [facility] [place] 04-30-2020 SARS-CoV-2 (COVID-19 ) Ad26 vaccine, recombinant Morris NILL [facility] [place] 04-02-2020 SARS-CoV-2 (COVID-19 ) Ad26 vaccine, recombinant Morris NILL [facility] [place] Payers Date Payer Category Payer Self-pay 2022 Unknown [id number] 2019 Unknown [id number] 1970 Unknown [id number] 2.16.8 40.1.114553.3.579.2.727 1970 Unknown [id number] 2.16.8 40.1.237464.3.579.2.727 1970 Unknown [id number] 2.16.84 0.1.467337.3.579.2.593 1970 Unknown [id number] 2.16.84 0.1.834014.3.579.2.593 1970 Unknown [id number] 2.16.84 0.1.156918.3.579.2.593 1970 Unknown [id number] 2.16.84 0.1.175890.3.579.2.593 1970 Unknown [id number] 2.16.84 0.1.621452.3.579.2.593 1970 Unknown [id number] 2.16.84 0.1.819554.3.579.2.593 1970 Unknown [id number] 2.16.84 0.1.764797.3.579.2.593 1970 Unknown [id number] 2.16.84 0.1.486379.3.579.2.593 1970 Unknown [id number] 2.16.84 0.1.528150.3.579.2.593 1970 Unknown [id number] 2.16.84 0.1.910968.3.579.2.593 1970 Unknown [id number] 2.16.84 0.1.789196.3.579.2.593 1959 Self-pay [id number] Unknown [id number] 2.16.8 40.1.109375.3.579.2.531 Social History Date Type Detail Facility Start: 04-08-2022 Tobacco smoking status Never s moked tobacco (finding) [facility] [place] Tobacco smoking status Never Gener al [facility] [place] Sex Assigned At Female [facility] Start: 1970 Sex Assigned At Female [facility] Functional Status Date Assessment Result Facility 04-08-2022 [...] well as cortisone injection and surgical release. [employer] Other 07-11-2023 Evaluation note* Encounter Date Diagnosis [...] Left hand pain (ICD- 10 - M79.642) [employer] Other 06-20-2023 Evaluation note* Encounter Date Diagnosis [...] joint of left hand (ICD-10 - M18.12) [employer] Other 2023 Evaluation note* Encounter Date Diagnosis [...] joint of left hand (ICD-10 - M18.12) [employer] Other 03-21-2023 Evaluation note* Encounter Date Diagnosis [...] and tingle for hours after this injection. [employer] Other 03-04-2023 NotePROCEDURE: XR FOOT RT MIN [...] Electronically authenticated by: AL CAMPOS Date: 2022-05-17 12:06[facility]02-22-2023 NoteOPERATIVE NOTE OPERATION DATE: 05/07/2022 PREOPERATIVE [...] in good condition. CC: Gabby Dee M.D.[facility] [id number] NoteOPERATIVE NOTE OPERATION DATE: 05/07/2022 ADDENDUM: The distal rectal 4 mm irregular flat polyp was removed with hot snare with good hemostasis, not with cold biopsy forceps.[facility] 05-06-2022 Evaluation note* Encounter Date [...] Apr, Right hand pain (ICD-10 - M79.641) [employer] Other 09-24-2022 NotePROCEDURE: XR SHOULDER LT 2V or > COMPARISON: None. HISTORY: Impingement syndrome of shoulder region FINDINGS: BONES:No fracture, acute abnormality, or significant arthropathy. SOFT TISSUES:Negative. No visible soft tissue swelling. EFFUSION:None visible. OTHER: Negative. IMPRESSION: No acute disease. Electronically authenticated by: AL CAMPOS Date: 2021-12-07 19:36[facility] No data available for this section General [facility] [place] Evaluation noteNo assessment information available [place] Work Phone: History general Narrative - Reported* Type Description Date Medical History high cholesterol Surgical History Foot Surgery Surgical History clogged tear duct [employer] Other Hospital Discharge instructions No data available for this section General [facility] [place] Progress note No data available for this [...] section and content) DATE CREATED AUTHOR 05/16/2022 [employer] [facility] DATE CREATED AUTHOR AUTHOR'S ORGANIZ ATION 06/18/2022 [facility] DATE CREATED AUTHOR AUTHOR'S ORGANIZ ATION 06/21/2022 [facility] REASON FOR VISIT (unrecogniz ed [...] BE BASED ON THE PRIMARY CLINICAL RECORDS. [employer] provides no warranty or guarantee of the accuracy or completeness of information in this document.
== END 2023-08-21 08:28 | disposition home or self-care (01) ==
LOC: EC 08:27
PROVIDERS: PCP Family Medicine; Visit Provider Orthopaedic Surgery Orthopaedic Surgery of the Spine
DX: Z47.89 Encounter for other orthopedic aftercare (principal); Z98.890 Other specified postprocedural states
CPT/HCPCS: 72040

== ENCOUNTER 2023-10-13 10:22 | Outpatient (OUT) | payer BC, SELFPAY ==
--- OUTSIDE RECORDS SUMMARY | 2023-10-13 10:26 | XMS_ITS | CCD ---
Author Organization [facility] Care Team Providers Care Pulp Mixer Name Role Phone Gabby Dee Primary Care Physician Morris CAGLE Attending Unavailable JEFF, Morris Valles Attending Unavailable Diamond Case Unavailable MD Diamond Case Attending Provider [phone] Diamond Case Admitting Unavailable Diamond Case Attending [...] Unavailable HOY ., DR PIERRE Admitting Unavailable ARVADA, DR AL Shaikh Consulting Unavailable HOY ., [...] Unavailable HOY ., DR PIERRE Consulting Unavailable ARVADA, DR AL Shaikh Consulting Unavailable HOY ., DR PIERRE Admitting Unavailable HOY ., DR PIERRE Attending Unavailable HOY ., DR PIERRE Primary Care Unavailable Allergies Allergy Classification Reported Allergen(s) Allergy Type Date of Onset Reaction(s) Facility (1 source) No Known Medication Allergies; Translations: [No Known Medication Allergies] Propensity to adverse reactions (disorder) [facility] Repository (2 sources) Baclofen Drug Allergy [facility] Repository Medications Current Medications Medication [...] 3V*on 023 XR hand LT min 3V* [facility] Main [address] [address] XRay Report Signed Patient: Theresa Reyes MR#: [id number] : 1970 Acct:[id number] Age/Sex: 52 / F ADM Date: 06/03/22 Loc: SOXD Room: Type: [facility] Attending Dr: Diamond Case MD Copies to: [...] Miguel Ramey M.D.06/03/2022 1:11 PM Dictation Location: [place] [address] Transcribed By: [facility] 06/03/22 1311 Dictated By: Miguel Ramey II, MD 06/03/22 1310 Signed By: 06/03/22 1311 Normal [facility] XR hand LT min 3V* [facility] Other XR hand LT min 3V* [facility] Main [facility] [place] Other XR hand LT min 3V* [address] [place] [address] [facility] Other XR hand LT min 3V* [place] [address] [facility] [place] Other XR hand LT min 3V* XRay Report [employer] Other XR hand LT min 3V* Signed [employer] Other XR hand LT min 3V* Patient: Theresa Reyes MR#: [id number] [facility] [place] Other XR hand LT min 3V* [id number] [employer] Other XR hand LT min 3V* : 1970 Acct:[id number] [employer] Other XR hand LT min 3V* Age/Sex: 52 / F ADM Date: 06/03/22 [employer] [facility] Other XR hand LT min 3V* Loc: SOXD Room: Type : [facility] [employer] Other XR hand LT min 3V* Attending Dr: Benny Case MD [employer] Other XR hand LT min 3V* Copies to: Diaomnd Case MD [employer] Other XR hand LT min 3V* Ordering Provider: Diamond Case MD [employer] Other XR hand LT min 3V* Date of Service: 06/03/22 [employer] Other XR hand LT min 3V* XR/XR hand LT min 3V*: PAIN [employer] Other XR hand LT min 3V* XR hand LT min 3V* 06/03/2022 8:44 AM [employer] Other XR hand LT min 3V* SIGNS AND SYMPTOMS: Left thumb/first metacarpal pain [employer] Other XR hand LT min 3V* PROTOCOL: Frontal, lateral, and oblique radiographs of the left hand: [employer] Other XR hand LT min 3V* COMPARISON: None [employer] Other XR hand LT min 3V* FINDINGS: [employer] Other XR hand LT min 3V* The bones are in anatomic alignment. There is mild degenerative change at the first carpometacarpal [employer] Other XR hand LT min 3V* junction. There is preservation of the joint spaces, otherwise. There is no fracture or dislocation. [employer] Other XR hand LT min 3V* No significant soft tissue swelling. [employer] Other XR hand LT min 3V* XR/XR hand LT min 3V* [employer] Other XR hand LT min 3V* IMPRESSION: [employer] Other XR hand LT min 3V* No acute bony injury. [employer] Other XR hand LT min 3V* Mild degenerative fa cet noted at the base of the thumb. [employer] Other XR hand LT min 3V* Impression dictated by: Miguel Ramey M.D.06/03/2022 1:11 PM [employer] Other XR hand LT min 3V* Dictation Location: [place] [address] [employer] Other XR hand LT min 3V* Transcribed By: KARRIE 06/03/22 [facility] [employer] Other XR hand LT min 3V* Dictated By: Miguel Ramey II, MD 06/03/22 [facility] [employer] Other XR hand LT min 3V* Signed By: [employer] Other XR hand LT min 3V* 06/03/[address] [place] [address] [employer] Other [employer] 05-15-2022 Reminders - From: Jessica Mims LPN To: GSN - Clinical; Sent: 05/15/2022 07:57:39 EST Show up: 04/06/2025 07:00:00 EST Subject: colonoscopy recall Due Date/Time: 05/07/2025 07:00:00 EST Reminder/Recall Patient is due for colonoscopy 05/07/2025 due to history of tubulovillous adenoma. Normal [facility] Pathology Noteon 05-09-2022 Pathology Note [id number]#1.00CD :127 Normal [facility] Outside Colonoscopyon 2022 Outside Colonoscopy [id number]#[id number] D:127 Normal [facility] PREG HCG QUALon 05-07-2022 , QUAL Negative Normal NEGATIVE [facility] Comment on above: Performed By: #### P REG #### [facility] Laboratory [address] [place] [address] [address] Hu Can Pre-Certification Formon Pre-Certification Form [id number] CD:127 Normal [facility] Consent for Procedure/Surger yon 04-10-2022 Consent for Procedure/Surgery [id number]#1.00C D:127 Normal [facility] Facesheeton 04-10-2022 Facesheet [id number]#1.00C D:127 Normal [facility] General Surgery Office/Clini c Noteon [...] SARS-CoV-2 (COVID-19) Ad26 vaccine 04/02/2020 Recorded Normal [facility] Comment on above: Result Comment: Elec tronically Signed By: JEFF PONCE, Morris Nelson\Date and Time Signed: 04/08/22 15:33 EST Covid-19 PCR (CVDTB)on 02-13 SARS-CoV-2 (COVID-19) RNA CLARISSA+probe Ql (Unsp spec) Not detected Normal NOT DETECTED [facility] Comment on above: Result Comment: [...] for this test is supported by the [place] of Health and Human Service's declaration that [...] used). Performed By: #### C VDTB #### [facility] Laboratory [address] [place] [address] Dr. Hu Can INFLUENZA A AND B AGon 02-26 [facility] SEE BELOW Normal [facility] Comment on above: Result Comment: Nega tive for Flu A protein angiten. Infection due to Flu A cannot be ruled out. Flu A angiten in the sample may be below the detection limit of the test. Performed By: #### I NFLUAB #### [facility] [address] [place] [address] Dr. [facility] Normal [facility] Comment on above: Result Comment: Nega tive for Flu B protein antigen. Infection due to Flu B cannot be ruled out. Flu B antigen in the sample may be below the detection limit of the test. Performed By: #### I NFLUAB #### [facility] [address] [place] [address] Dr. Hu Can INFLUENZA A AG Negative Normal NEGATIVE SEE COMMENT [facility] Comment on above: Performed By: #### I NFLUAB #### [facility] [address] [place] [address] Dr. Hu Can INFLUENZA B AG Negative Normal NEGATIVE SEE COMMENT [facility] Comment on above: Performed By: #### I NFLUAB #### [facility] [address] [place] [address] Dr. Hu Can INTERNAL CONTROLS Within Normal Limits Normal Wi thin Normal Limits [facility] Comment on above: Performed By: #### I NFLUAB #### [facility] [address] [place] [address] Dr. Hu Can CBC AUTO DIFFon 12-13-2021 BASO # 0.0 103/ul Normal 0.0-0.1 [facility] Comment on above: Performed By: #### C BC #### [facility] [address] [place] [address] [address] Hu Can Basophils/100 WBC (Bld) 0.3 % Normal 0.2-2.0 [facility] Comment on above: Performed By: #### C BC #### [facility] [address] [place] [address] [address] Hu Can EO # 0.1 103/ul Normal 0.0-0.7 [facility] Comment on above: Performed By: #### C BC #### [facility] [address] [place] [address] Dr. Hu Can Eosinophils/100 WBC (Bld) 1.1 % Normal 0.9-7.0 [facility] Comment on above: Performed By: #### C BC #### [facility] [address] [place] [address] Dr. Hu Can Erythrocyte distribution width (RBC) [Ratio] 13.7 % Normal 11.0-15.0 [facility] Comment on above: Performed By: #### C BC #### [facility] [address] [place] [address] Dr. Hu Can Hematocrit (Bld) [Volume fraction] 44.6 % Normal 36.0-48.0 [facility] Comment on above: Performed By: #### C BC #### [facility] [address] [place] [address] Dr. Hu Can Hemoglobin (Bld) [Mass/Vol] 14.5 g/dL Normal 12.0-16.0 [facility] Comment on above: Performed By: #### C BC #### [facility] [address] [place] [address] Dr. Hu Can IG # 0.02 10e3/ul Normal 0.00-0.03 [facility] Comment on above: Performed By: #### C BC #### [facility] [address] [place] [address] Dr. Hu Can IG % 0.3 % Normal 0.0-0.5 [facility] Comment on above: Performed By: #### C BC #### [facility] [address] [place] [address] Dr. Hu Can LYMPH # 2.3 103/ul Normal 1.2-3.8 [facility] Comment on above: Performed By: #### C BC #### [facility] [address] [place] [address] Dr. Hu Can Lymphocytes/100 WBC (Bld) 30.5 % Normal 20.5-60.0 [facility] Comment on above: Performed By: #### C BC #### [facility] [address] [place] [address] Dr. Hu Can MANUAL DIFF REQ NO Normal [facility] Comment on above: Performed By: #### C BC #### [facility] [address] [place] [address] Dr. Hu Can MCH (RBC) [Entitic mass] 29.1 pg Normal 26.7-34.0 [facility] Comment on above: Performed By: #### C BC #### [facility] [address] [place] [address] Dr. Hu Can MCHC (RBC) [Mass/Vol] 32.5 g/dL Normal 29.9-35.2 [facility] Comment on above: Performed By: #### C BC #### [facility] [address] [place] [address] Dr. Hu Can MCV (RBC) [Entitic vol] 89.6 fL Normal 81.0-99.0 [facility] Comment on above: Performed By: #### C BC #### [facility] [address] [place] [address] Dr. Hu Can MONO # 0.5 103/ul Normal 0.3-0.8 [facility] Comment on above: Performed By: #### C BC #### [facility] [address] [place] [address] Dr. Hu Can Monocytes/100 WBC (Bld) 6.8 % Normal 1.7-12.0 [facility] Comment on above: Performed By: #### C BC #### [facility] [address] [place] [address] [address] Hu Can NEUT # 4.6 103/ul Normal 1.4-6.5 [facility] Comment on above: Performed By: #### C BC #### [facility] [address] [place] [address] [address] Hu Can Neutrophils/100 WBC (Bld) 61.0 % Normal 43.0-75.0 [facility] Comment on above: Performed By: #### C BC #### [facility] [address] [place] [address] [address] Hu Can Platelet mean volume (Bld) [Entitic vol] 9.3 fL Critically low 9.5-13.5 [facility] Comment on above: Performed By: #### C BC #### [facility] [address] [place] [address] Dr. Hu Can PLT 296 103/ul Normal 150-450 [facility] Comment on above: Performed By: #### C BC #### [facility] [address] [place] [address] Dr. Hu Can RBC 4.98 106/ul Normal 4.20-5.40 [facility] Comment on above: Performed By: #### C BC #### [facility] [address] [place] [address] Dr. Hu Can WBC 7.5 103/ul Normal 4.0-11.0 [facility] Comment on above: Performed By: #### C BC #### [facility] [address] [place] [address] Dr. Hu Can GLYCOHEMOGLOBIN A1Con 2021 ADA RECOMMENDATION SEE BELOW Normal [facility] Comment on above: Result Comment: ADA RECOMMENDED LIMIT 4.0 - 6.0 ADA THERAPEUTIC TARGET < 7.0 ACTION SUGGESTED > 7.0 Performed By: #### A 1C #### [facility] [address] [place] [address] Dr. Hu Can Glucose [Mass/Vol] 114 mg/dL Normal [facility] Comment on above: Performed By: #### A 1C #### [facility] [address] [place], [place] [address] Dr. Hu Can HbA1c (Bld) [Mass fraction] 5.6 % Normal 4.5-6.2 [facility] Comment on above: Performed By: #### A 1C #### [facility] [address] [place] [address] [address] Hu Can LIPID PROFILEon 12-13-2021 CHOL-HDL RATIO NORM SEE BELOW Normal [facility] Comment on above: Result Comment: 3.3 - 4.4 LOW RISK 4.4 - 7.1 AVERAGE RISK 7.1 - 11.0 MODERATE RISK >11.0 HIGH RISK Performed By: #### T SH, CMP, LIPID ####[facility] [address] [place] [address]Dr. Hu Can Cholesterol [Mass/Vol] 279 mg/dL Critically high <=200 [facility] Comment on above: Performed By: #### T SH, CMP, LIPID ####[facility] [address] [place] [address]Dr. Hu Can Cholesterol in HDL [Mass/Vol] 50 mg/dL Normal 40-60 [facility] Comment on above: Performed By: #### T SH, CMP, LIPID ####[facility] [address] [place] [address]Dr. Hu Can Cholesterol in LDL [Mass/Vol] 197.8 mg/dL Normal [facility] Comment on above: Performed By: #### T SH, CMP, LIPID ####[facility] [address] [place] [address]Dr. uH Can Cholesterol.total/ Cholesterol in HDL [Mass ratio] 5.6 {ratio} Normal [facility] Comment on above: Performed By: #### T SH, CMP, LIPID ####[facility] [address] [place] [address]Dr. Hu Can HDL NORMAL > or = 60 mg/dl - LO W CARDIOVASCULAR RISK <40 mg/dl - HIGH CARDIOVASCULAR RISK Normal [facility] Comment on above: Performed By: #### T SH, CMP, LIPID ####[facility] [address] [place] [address]Dr. Hu Can LDL CALC NORMAL SEE BELOW Normal [facility] Comment on above: Result Comment: <100 mg/dl OPTIMAL 100 - 129 mg/dl NEAR OR ABOVE OPTIMAL 130 - 159 mg/dl BORDERLINE HIGH 160 - 189 mg/dl HIGH >190 mg/dl VERY HIGH Performed By: #### T SH, CMP, LIPID ####[facility] [address] [place] [address]Dr. Hu Can Triglyceride [Mass/Vol] 156 mg/dL Critically high <=150 [facility] Comment on above: Performed By: #### T SH, CMP, LIPID ####[facility] [address] [place] [address]Dr. Hu Can VLDL CALC 31.2 mg/dL Normal [facility] Comment on above: Performed By: #### T SH, CMP, LIPID ####[facility] [address] [place] [address]Dr. Hu Can PROF 14(COMP METB)on 022 Albumin [Mass/Vol] 3.8 g/dL Normal 3.4-5.0 [facility] Comment on above: Performed By: #### T SH, CMP, LIPID ####[facility] [address] [place], [place] [address]Dr. Hu Can Albumin/Globulin [Mass ratio] 1.2 {ratio} Normal [facility] Comment on above: Performed By: #### T SH, CMP, LIPID ####[facility] [address] [place] [address]Dr. Hu Can ALP [Catalytic activity/Vol] 74 U/L Normal 46-116 [facility] Comment on above: Performed By: #### T SH, CMP, LIPID ####[facility] [address] [place] [address]Dr. Hu Can ALT [Catalytic activity/Vol] 19 U/L Normal 14-59 [facility] Comment on above: Performed By: #### T SH, CMP, LIPID ####[facility] [address] [place] [address]Dr. Hu Can Anion gap [Moles/Vol] 11.0 mmol/L Normal [facility] Comment on above: Performed By: #### T ABDI, CMP, LIPID ####[facility] [address] [place] [address]Dr. Hu Can AST [Catalytic activity/Vol] 12 U/L Critically low 15-37 [facility] Comment on above: Performed By: #### T SH, CMP, LIPID ####[facility] [address] [place] [address]Dr. Hu Can Bilirubin [Mass/Vol] 0.7 mg/dL Normal 0.2-1.0 [facility] Comment on above: Performed By: #### T ABDI, CMP, LIPID ####[facility] [address] [place] [address]Dr. Hu Can Calcium [Mass/Vol] 8.7 mg/dL Normal 8.5-10.1 [facility] Comment on above: Performed By: #### T ABDI, CMP, LIPID ####[facility] [address] [place] [address]Dr. Hu Can Chloride [Moles/Vol] 102 mmol/L Normal 98-107 [facility] Comment on above: Performed By: #### T SH, CMP, LIPID ####[facility] [address] [place] [address]Dr. Hu Can CO2 [Moles/Vol] 28.2 mmol/L Normal 21.0-32.0 [facility] Comment on above: Performed By: #### T SH, CMP, LIPID ####[facility] [address] [place] [address]Dr. Hu Can Creatinine [Mass/Vol] 0.91 mg/dL Normal 0.55-1.02 [facility] Comment on above: Performed By: #### T SH, CMP, LIPID ####[facility] [address] [place] [address]Dr. Hu Can EGFR-AF [place] >60 Normal >=60 [facility] Comment on above: Performed By: #### T SH, CMP, LIPID ####[facility] [address] [place] [id number]. Hu Can EGFR-NON AF [place] >60 Normal >=60 [facility] Comment on above: Performed By: #### T SH, CMP, LIPID ####[facility] [address] [place] [id number]. Hu Can Globulin (S) [Mass/Vol] 3.3 g/dL Normal [facility] Comment on above: Performed By: #### T SH, CMP, LIPID ####[facility] [address] [place] [address]Dr. Hu Can Glucose [Mass/Vol] 105 mg/dL Normal 74-106 [facility] Comment on above: Performed By: #### T SH, CMP, LIPID ####[facility] [address] [place] [address]Dr. Hu Can Potassium [Moles/Vol] 4.2 mmol/L Normal 3.5-5.1 [facility] Comment on above: Performed By: #### T SH, CMP, LIPID ####[facility] [address] [place] [address]Dr. Hu Can Protein [Mass/Vol] 7.1 g/dL Normal 6.4-8.2 [facility] Comment on above: Performed By: #### T SH, CMP, LIPID ####[facility] [address] [place] [address]Dr. Hu Can Sodium [Moles/Vol] 137 mmol/L Normal 136-145 [facility] Comment on above: Performed By: #### T SH, CMP, LIPID ####[facility] [address] [place] [address]Dr. Hu Can Urea nitrogen [Mass/Vol] 23.0 mg/dL Critically high 7.0-18.0 [facility] Comment on above: Performed By: #### T SH, CMP, LIPID ####[facility] [address] [place] [address]Dr. Hu Can Urea nitrogen/Creatinin e [Mass ratio] 25.3 mg/mg Normal [facility] Comment on above: Performed By: #### T SH, CMP, LIPID ####[facility] [address] [place], [place] [address]Ok. Hu Can TSHon 12-13-2021 TSH 1.249 uIU/mL Normal 0.358-3.740 [facility] Comment on above: Performed By: #### T SH, CMP, LIPID ####[facility] [address] [place], [place] [address]Tf. Hu Can XR CSPINE MIN 4 VIEWSon [...] AL CAMPOS Date: 2021-12-07 19:38 Normal [facility] MG MAMM SCREEN 3D HIEU CADon 10-28-2021 MG MAMM SCREEN 3D HIEU CAD Patient: THERESA REYES Exam Date: 10/28/2021 : 1970 Gender:F Ordering : DR GABBY DEE . Admission #: [id number] Family : Order #: [id number] CLICK HERE TO VIEW EXAM RADIOLOGY REPORT [...] ovarian cancer at age 80. LOCATION: [facility] BREAST COMPOSITION: Scattered areas fibroglandular [...] M.D. on 10/28/2021 at 12:02 Normal [facility] Covid-19 PCR (CVDTB)on 09-15 SARS-CoV-2 (COVID-19) RNA CLARISSA+probe Ql (Unsp spec) Not detected Normal NOT DETECTED [facility] Comment on above: Result Comment: [...] for this test is supported by the [place] of Health and Human Service's declaration that [...] longer be used). Performed By: #### [facility] #### [facility] [address] [place] [address] Dr. Hu Can Covid-19 PCR (CVDTB)on 09-14 SARS-CoV-2 (COVID-19) RNA CLARISSA+probe Ql (Unsp spec) Detected Critically abnormal NOT DETECTED [facility] Comment on above: Result Comment: This test is not yet approved or cleared by the [place] FDA. When there are no FDA-approved or cleared tests available, and other criteria are met, FDA can make tests available under an emergency access mechanism called an Emergency Use Authorization (EUA). The EUA for this test is supported by the [place] of Health and Human Service's declaration that [...] longer be used). Performed By: #### C [facility] ####[facility] [address] [place], [place] [address]Nj. Hu Can Pathology Noteon 07-12-2021 Pathology Note [id number] D:127 Normal [facility] Vital Signs Date Time Vital Sign Value Performing Clinician Facility 09-02-2022 09:30-0400 Body height 170.18 cm [facility] Other [facility] Other 09-02-2022 09:30-0400 Body mass index (BMI) [Ratio] 30.85 kg/m2 [facility] Other [facility] [employer] Other 09-02-2022 09:30-0400 Body weight 89.36 kg Diamond [facility] Other [employer] [employer] Other 04-08-2022 15:14-0500 Blood Pressure Location [facility] 04-08-2022 15:14-0500 Diastolic blood pressure 88 mm[Hg] [facility] 04-08-2022 15:14-0500 Heart rate 72 /min [facility] 04-08-2022 15:14-0500 Respiratory rate 16 /min Morris [facility] 04-08-2022 15:14-0500 Systolic blood pressure 128 mm[Hg] Morris CAGLE [facility] [place] Encounters Encounter Date Encounter Type Care Provider Facility Start: 01-02-2023 End: 01-02-2023 ambulatory Diamond Case Other [facility] Other Start: 01-02-2023 Office outpatient vi sit 15 minutes Diamond Calvey [facility] Start: 09-23-2022 End: 09-23-2022 ambulatory Diamondgiorgi Case Other [facility] Other Start: 09-23-2022 Office outpatient vi sit 15 minutes Diamond Calvey [facility] Start: 09-02-2022 End: 09-02-2022 ambulatory Diamondgiorgi Case Other [facility] Other Start: 09-02-2022 Office outpatient vi sit 15 minutes Diamond Calvey [facility] Start: 07-08-2022 End: 07-08-2022 ambulatory Diamond Calvey Other [facility] Other Start: 07-08-2022 Office outpatient vi sit 15 minutes Diamond Calvey [facility] Start: 06-03-2022 Office outpatient vi sit 15 minutes Diamond Calvey [facility] Start: 06-03-2022 End: 06-03-2022 ambulatory Diamond Case Facility:[facility] Start: 06-03-2022 End: 06-03-2022 ambulatory MD Diamond Case Work Phone: [facility] Work Phone: Start: 06-03-2022 End: 06-03-2022 Patient encounter procedure MD Diamond Case Work Phone: [facility] Start: 05-16-2022 End: 05-17-[address] GABBY DEE . Facility: Start: 05-14-2022 End: 05-22-[address] GABBY DEE . Facility:[facility] Start: 05-07-2022 End: 05-08-2022 ambulatory Morris CAGLE Facility:[id number] Start: 05-06-2022 End: 05-06-2022 ambulatory Diamond Case Other [facility] Other Start: 05-06-2022 Office outpatient ne w 30 minutes Diamond Case [facility] Start: 04-08-2022 End: 04-09-2022 ambulatory Morris CAGLE Facility:[facility] Start: 04-08-2022 End: 04-08-2022 Patient encounter procedure Morris CAGLE [facility] Start: 03-16-[address] GABBY DEE . Facili ty:[facility] Start: 02-26-2022 End: 02-26-[address] GABBY DEE . Facility:[facility] Start: 01-01-2022 End: 01-31-[address] GABBY DEE . Facility:[facility] Start: 12-16-2021 Encounter for genera l adult medical examination without abnormal findings DR GABBY DEE . [facility] Start: 12-13-2021 End: 12-14-2021 ambulatory [...] vaccine, unspecified formulation Morris CAGLE [facility] [place] 04-30-2020 SARS-CoV-2 (COVID-19 ) Ad26 vaccine, recombinant Morris NILL [facility] [place] 04-02-2020 SARS-CoV-2 (COVID-19 ) Ad26 vaccine, recombinant Morris NILL [facility] [place] Payers Date Payer Category Payer Self-pay 2022 Unknown [id number] 2019 Unknown [id number] 1970 Unknown [id number] 2.16.8 [id number] 1970 Unknown [id number] 2.16.8 [id number] 1970 Unknown [id number] 2.16.84 0.1.419293.3.579.2.593 1970 Unknown [id number] 2.16.84 0.1.525298.3.579.2.593 1970 Unknown [id number] 2.16.84 0.1.764115.3.579.2.593 1970 Unknown [id number] 2.16.84 0.1.544899.3.579.2.593 1970 Unknown [id number] 2.16.84 0.1.826863.3.579.2.593 1970 Unknown [id number] 2.16.84 0.1.366257.3.579.2.593 1970 Unknown [id number] 2.16.84 0.1.013165.3.579.2.593 1970 Unknown [id number] 2.16.84 0.1.173483.3.579.2.593 1970 Unknown [id number] 2.16.84 0.1.042679.3.579.2.593 1970 Unknown [id number] 2.16.84 0.1.484505.3.579.2.593 1970 Unknown [id number] 2.16.84 0.1.898004.3.579.2.593 1959 Self-pay [id number] Unknown [id number] 2.16.8 [id number] Social History Date Type Detail Facility Start: 04-08-2022 Tobacco smoking status Never s moked tobacco (finding) [facility] [place] Tobacco smoking status Never [facility] [place] Sex Assigned At Female [facility] Start: 1970 Sex Assigned At Female [facility] Functional Status Date Assessment Result Facility [...] well as cortisone injection and surgical release. [facility] Other 07-11-2023 Evaluation note* Encounter Date Diagnosis [...] Left hand pain (ICD- 10 - M79.642) [facility] Other 06-20-2023 Evaluation note* Encounter Date Diagnosis [...] joint of left hand (ICD-10 - M18.12) [facility] Other 2023 Evaluation note* Encounter Date Diagnosis [...] joint of left hand (ICD-10 - M18.12) [facility] Other 03-21-2023 Evaluation note* Encounter Date Diagnosis [...] and tingle for hours after this injection. [facility] Other 03-04-2023 NotePROCEDURE: XR FOOT RT MIN [...] Electronically authenticated by: AL CAMPOS Date: 2022-05-17 12:06[facility]02-22-2023 NoteOPERATIVE NOTE OPERATION DATE: 05/07/2022 PREOPERATIVE [...] in good condition. CC: Gabby Dee M.D.[facility] [id number] NoteOPERATIVE NOTE OPERATION DATE: 05/07/2022 ADDENDUM: The distal rectal 4 mm irregular flat polyp was removed with hot snare with good hemostasis, not with cold biopsy forceps.[facility] 05-06-2022 Evaluation note* Encounter Date [...] Apr, Right hand pain (ICD-10 - M79.641) [facility] Other 09-24-2022 NotePROCEDURE: XR SHOULDER LT 2V or > COMPARISON: None. HISTORY: Impingement syndrome of shoulder region FINDINGS: BONES:No fracture, acute abnormality, or significant arthropathy. SOFT TISSUES:Negative. No visible soft tissue swelling. EFFUSION:None visible. OTHER: Negative. IMPRESSION: No acute disease. Electronically authenticated by: AL CAMPOS Date: 2021-12-07 19:36[facility] note No data available for this section [facility] [place] Evaluation noteNo assessment information available [facility] Work Phone: History general Narrative - Reported* Type Description Date Medical History high cholesterol Surgical History Foot Surgery Surgical History clogged tear duct [facility] Other Hospital Discharge instructions No data available for this section [facility] [place] Progress note No data available for this [...] section and content) DATE CREATED AUTHOR 05/16/2022 [facility] DATE CREATED AUTHOR AUTHOR'S ORGANIZ ATION 06/18/2022 [facility] DATE CREATED AUTHOR AUTHOR'S ORGANIZ ATION 06/21/2022 [facility] [place] [facility] REASON FOR VISIT (unrecogniz ed [...] BE BASED ON THE PRIMARY CLINICAL RECORDS. [employer] provides no warranty or guarantee of the accuracy or completeness of information in this document.
[2023-10-13 11:12] LABS: Basophils Percent Auto 0.5 % (0.2-2.0); Eosinophils Absolute Auto 0.1 10^3/uL (0.0-0.7); Eosinophils Percent Auto 0.9 % (0.9-7.0); Hematocrit 46.7 % (36.0-48.0); Hemoglobin 14.8 g/dL (12.0-16.0); Immature Granulocytes Abs Auto 0.01 10^3/uL (0.00-0.03); Immature Granulocytes Pct Auto 0.2 % (0.0-0.5); Lymphocytes Absolute Auto 1.7 10^3/uL (1.2-3.8); Lymphocytes Percent Auto 26.8 % (20.5-60.0); Mean Corpuscular HGB Conc 31.7 g/dL (29.9-35.2); Mean Corpuscular Hemoglobin 28.4 pg (26.7-34.0); Mean Corpuscular Volume 89.6 fL (81.0-99.0); Monocytes Absolute Auto 0.5 10^3/uL (0.3-0.8); Monocytes Percent Auto 7.1 % (1.7-12.0); Neutrophils Absolute Auto 4.1 10^3/uL (1.4-6.5); Neutrophils Percent Auto 64.5 % (43.0-75.0); Platelet Count 316 10^3/uL (150-450); Red Blood Count 5.21 10^6/uL (4.20-5.40); Red Cell Distribution Width 13.8 % (11.0-15.0); White Blood Count 6.4 10^3/uL (4.0-11.0)
[2023-10-13 11:51] LABS: Estimated Average Glucose 123 mg/dL; Glycohemoglobin A1C 5.9 % (4.5-6.2)
[2023-10-13 12:05] LABS: Alanine Aminotransferase 33 U/L (14-59); Albumin Level 3.6 g/dL (3.4-5.0); Alkaline Phosphatase 102 U/L (46-116); Anion Gap 6.6; Aspartate Amino Transferase 31 U/L (15-37); BUN Creatinine Ratio 18.7; Bilirubin Total 0.5 mg/dL (0.2-1.0); Calcium 9.1 mg/dL (8.5-10.1); Carbon Dioxide 31.6 mmol/L (21.0-32.0); Chloride 103 mmol/L (98-107); Chol HDL Ratio 4.4; Cholesterol 240 mg/dL (<=200); Estimated GFR (African America >60 (>=60); Estimated GFR (Non-African Ame >60 (>=60); Globulin 3.5 g/dL; Glucose 111 mg/dL (74-106); HDL Cholesterol 55 mg/dL (40-60); Potassium 4.2 mmol/L (3.5-5.1); Sodium 137 mmol/L (136-145); Thyroid Stimulating Hormone 0.986 uIU/mL (0.358-3.740); Total Protein 7.1 g/dL (6.4-8.2); Triglycerides 116 mg/dL (<=150); VLDL CHOLESTEROL 23.2 mg/dL
== END 2023-10-13 10:23 | disposition home or self-care (01) ==
LOC: LAB 10:22
PROVIDERS: PCP Family Medicine; Visit Provider Family Medicine
DX: Z00.00 Encounter for general adult medical examination without abnormal findings (principal)
CPT/HCPCS: 36415; 80053; 80061; 83036; 84443; 85025

== ENCOUNTER 2023-11-05 08:57 | Outpatient (OUT) | payer BC, SELFPAY ==
--- NOTE | 2023-11-04 14:38 | V.VEINS.HP ---
Varicose Veins Patient is a 53 year old female in this day as a referral from her PCP Dr. Dee. Patient c/o severe bilateral leg cramping most notably at night. Patient also c/o bilateral leg achiness. Patient denies edema. Patient does have family history of varicose veins with father and paternal grandfather. 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 Patient states symptoms are equal bilaterally. Kan Loo MD personally performed the services described in this documentation, as scribed by Nathan Donnelly RN in my presence and it is both accurate and complete. INathan RN, am scribing for, and in the presence of, Dr. Kan Salas and in the presence of the patient. . thigh: bilateral (symptoms equal bilateral), knee: bilateral, calf: bilateral, ankle: bilateral and patino: bilateral aching and cramping (patients most notable complaint is muscle cramps) 10 10 years Worsened in recent months: Yes sitting other (liquid IV and magnesium cream ) Reports muscle spasms of leg and restless legs History of lower extremity trauma: No Superficial thrombophlebitis: No Family history of varicose veins: yes Has patient had previous lower extremity venous surgery: No Patient has previously received the following treatment(s) for lower extremity varicose veins: Reports none Does patient have a history of : yes Does patient intend to have future pregnancies: no Has patient had lower extremity venous scan with relux testing: No Support hose used: Yes Problems walking or doing physical activity: Yes How does it affect you: muscle cramping impedes exercise Do you walk much: Yes Do you stand much: Yes Review of Systems ROS Narrative Kan Loo MD personally performed the services described in this documentation, as scribed by Nathan Donnelly RN in my presence and it is both accurate and complete. Nathan Loo RN, am scribing for, and in the presence of, Dr. Kan Salas and in the presence of the patient. Status of ROS 10 or more systems reviewed and unremarkable except as noted in history and below Integumentary/Breast Reports: itching Neurological Reports: weakness in extremities [facility] Medical History (Updated 11/05/23 @ 09:26 by Nathan Donnelly) Blocked tear duct Muscle cramping ?R25.2 - Cramp and spasm (ICD-10) Cervical vertebral fusion ?M43.22 - Fusion of spine, cervical region (ICD-10) Ganglion cyst of left foot ?M67.472 - Ganglion, left ankle and foot (ICD-10) Plantar fasciitis, bilateral ?M72.2 - Plantar fascial fibromatosis (ICD-10) Hypercholesteremia ?E78.00 - Pure hypercholesterolemia, unspecified (ICD-10) Lower back pain ?M54.50 - Low back pain, unspecified (ICD-10) Asthma ?J45.909 - Unspecified asthma, uncomplicated (ICD-10) Family History (Updated 11/05/23 @ 09:27 by Nathan Donnelly) Grandmother Family history of CHF (congestive heart failure) Family history of cancer Family history of diabetes mellitus Family history of hypertension Grandfather Family history of hypertension Family history of myocardial infarction Other Varicose veins of bilateral lower extremities with pain Social History (Updated 11/05/23 @ 09:28 by Nathan Donnelly) Within the past year, how often did you have a drink containing alcohol: 2-4 times a month Smoking status: Never smoker Non-prescribed substance use: denies use Highest level of school completed/degree received: high school graduate Do you think of yourself as: straight/heterosexual Gender Identity: female Meds Home Medications and Allergies Allergies Allergy/AdvReac Type Severity Reaction Status Date / Time No Known Drug Allergies Allergy Verified 03/11/23 13:16 Exam Narrative Exam Narrative: Kan Loo MD personally performed the services described in this documentation, as scribed by Nathan Donnelly RN in my presence and it is both accurate and complete. Nathan Loo RN, am scribing for, and in the presence of, Dr. Kan Salas and in the presence of the patient. Constitutional Documenting provider has reviewed patient's vital signs: yes Common normals: oriented x3 Cardio Peripheral pulses: posterior tibial pulses present and dorsalis pedis pulses present Extremity Common normals: normal capillary refill General: calf tenderness and edema Right lower extremity: lower leg Right lower leg: inspection and palpation Left lower extremity: lower leg Left lower leg: inspection and palpation Neuro Common normals: oriented x3 Results Additional Findings Additional findings: Bilateral leg reflux u/s reveals no varicose vein disease noted. I, Kan Zieber, MD personally performed the services described in this documentation, as scribed by Nathan Donnelly RN in my presence and it is both accurate and complete. Nathan Loo RN, am scribing for, and in the presence of, Dr. Kan Salas and in the presence of the patient. Assessment and Plan Assessment and Plan (1) Muscle cramping: Plan No f/u necessary. Kan Loo MD personally performed the services described in this documentation, as scribed by Nathan Donnelly RN in my presence and it is both accurate and complete. Nathan Loo RN, am scribing for, and in the presence of, Dr. Kan Slaas and in the presence of the patient.
--- NOTE | 2023-11-04 14:51 | P.DS_ITS ---
Discharge Plan Discharge Disposition: Home, Self-Care Follow Up Appointments: no f/u necessary Print Language: Amharic Discharge Date/Time: 11/05/23 10:33
--- NOTE | 2023-11-05 08:59 | VEIN_ITS ---
Patient Name: THERESA JOSHUA MR#: [id number] : 1970 Exam Date: 11/05/2023 Ordering Doctor: DR AL CAMPOS M.D. RADIOLOGY REPORT PROCEDURE: FACILITY EST COMPREHENSIVE VEIN CENTER - OFFICE VISIT INITIAL COMPARISON: None. PROGRESS NOTES: [age] year old female who presents with a 10 year history of lower extremity aching, cramping, muscle spasm. The patient's leg symptoms are symmetric bilaterally. There has been a progression of symptoms over past several months. This increases at night. The patient describes an improvement with : Nothing has help or improved symptoms at this time. The patient denies any signs and symptoms to suggest arterial ischemia. The patient describes a family history of varicose veins. The patient has drinking and smoking history of occasional alcohol consumption; no tobacco use. Patient has a past medical history significant for plantar fasciitis, hypercholesterolemia, low back pain, asthma, cervical fusion. The patient denies a history of deep venous thrombus or pulmonary embolus. See separate history and physical for medication list. No prior treatment for varicose or spider veins. No current use of compression stockings. After review of nurse notes, history and physical exam I discussed at length the pathophysiology of venous hypertension and possible treatments, therapies and strategies available. We discussed at length the importance of elevating the lower extremities above the level of the heart, increased physical activity and compression stocking use. Ultrasound venous reflux study performed today was discussed at length with the patient. The report demonstrates no significant abnormal dilation or reflux within the superficial veins bilaterally.. PHYSICAL EXAM: The right leg demonstrates no appreciable varicosities, no significant spider veins, no ulceration, no significant edema, no skin discoloration. The left leg demonstrates no appreciable varicosities, no significant spider veins, no ulceration, no significant edema, no skin discoloration. Both thighs, legs and feet were symmetrically warm to the touch. Good posterior tibial and dorsalis pedis pulses were present bilaterally. VEIN/VC Facility EST Comprehensive IMPRESSION: 1. No significant lower extremity venous insufficiency 2. No significantly lower extremity varicose veins 3. No significant lower extremity subcutaneous edema 4. No flow significant arterial disease 5. CEAP: CO, EN, AN, PN PLAN: 1. No treatable lower extremity varicose vein disease at this time. Nurse notes, history and physical were reviewed and confirmed, see attached forms. The nurse was present throughout the physical exam and consultation Dictated by: Kan Salas M.D. on 11/05/2023 at 11:31 Approved by: Kan Salas M.D. on 11/05/2023 at 11:38
--- NOTE | 2023-11-05 08:59 | VEIN_ITS ---
Patient Name: THERESA JOSHUA MR#: [id number] : 1970 Exam Date: 11/05/2023 Ordering Doctor: DR AL CAMPOS M.D. RADIOLOGY REPORT PROCEDURE: VC EXT VENOUS REFLUX HIEU LMTD COMPARISON: None. INDICATIONS: I83.813 Bilateral painful varicose veins TECHNIQUE: Duplex imaging of the lower extremity to assess the deep and superficial venous system for the presence of deep or superficial venous incompetence and to document the location and severity of disease. The study includes evaluation of the great saphenous vein (GSV), anterior accessory saphenous vein (AASV) and small saphenous vein (SSV). Patient scanned in reverse Trendelenburg and standing. FINDINGS: RIGHT LOWER EXTREMITY: Saphenofemoral Junction Reflux: Yes 9.2mm 1.8 sec GSV: Diam (mm) Reflux/ Time (sec) Proximal Thigh 5.5 Yes 0.6 Mid Thigh 2.3 Yes 0.5 Distal Thigh 2.7 Yes 0.9 Prox Calf 1.6 No Mid Calf 2.1 No Saphenopopliteal Junction Reflux: 2.1mm No SSV: Proximal Calf 1.7 No Mid Calf 1.0 AASV: Not present Proximal Thigh Mid Thigh Distal Thigh Thrombi: No acute or chronic thrombus visualized Compressibility: Normal Flow: Normal Preforator: Dist/med calf 1.6mm with 0s reflux. Tech Note: Mid/med calf 1.6mm with 0s reflux. Mid/med thigh 1.8mm with 0.7s reflux. LEFT LOWER EXTREMITY: Saphenofemoral Junction Reflux: Yes 7.5 mm 1.1 sec GSV: Diam (mm) Reflux/Time (sec) Proximal Thigh 7.0 No Mid Thigh 2.3 No Distal Thigh 1.7 No Prox Calf 1.5 No Mid Calf 1.6 No Saphenopopliteal Junction Relux: 2.5 mm No SSV: Proximal Calf 2.0 No Mid Calf 1.8 No AASV: Not present Proximal Thigh Mid Thigh Distal Thigh Thrombi: No acute or chronic thrombus visualized Compressibility: Normal Flow: Normal Primary Care Provider: No patent perforators Tech Note: Patent varicose vein dist/med thigh 1.8mm with 0s reflux. Patent varicose vein 2.3mm with 0s reflux. CONCLUSION: 1. No significant dilation or reflux within the superficial veins of the right and left lower extremities. Dictated by: Kan Salas M.D. on 11/05/2023 at 10:12 Approved by: Kan Salas M.D. on 11/05/2023 at 11:31
--- NOTE | 2023-11-05 10:32 | P.DS_ITS ---
Discharge Plan Discharge Disposition: Home, Self-Care Follow Up Appointments: no f/u necessary Print Language: Yoruba Discharge Date/Time: 11/05/23 10:33
== END 2023-11-05 10:33 | disposition home or self-care (01) ==
LOC: VC 08:57
PROVIDERS: PCP Family Medicine; Visit Provider Radiology Diagnostic Radiology
DX: R25.2 Cramp and spasm (principal)
CPT/HCPCS: 93970; G0463

== ENCOUNTER 2023-11-13 07:28 | Outpatient (OUT) | payer BC, SELFPAY ==
--- OUTSIDE RECORDS SUMMARY | 2023-11-13 07:30 | XMS_ITS | CCD ---
Author Organization [facility] Care Team Providers Care Key Ringer Name Role Phone Gabby Dee Primary Care [...] Unavailable HOY ., DR PIERRE Admitting Unavailable CARBON, DR AL Shaikh Consulting Unavailable HOY ., [...] Unavailable HOY ., DR PIERRE Consulting Unavailable CARBON, DR AL Shaikh Consulting Unavailable HOY ., DR PIERRE Admitting Unavailable HOY ., DR PIERRE Attending Unavailable HOY ., DR PIERRE Primary Care Unavailable Allergies Allergy Classification Reported Allergen(s) Allergy Type Date of Onset Reaction(s) Facility (1 source) No Known Medication Allergies; Translations: [No Known Medication Allergies] Propensity to adverse reactions (disorder) [facility] Repository (2 sources) Baclofen Drug Allergy [facility] Repository Medications Current Medications Medication Drug [...] 3V*on 023 XR hand LT min 3V* [facility] Main [address] [address] XRay Report Signed Patient: Theresa Reyes MR#: [id number] : 1970 Acct:[id number] Age/Sex: 52 / F ADM Date: 06/03/22 Loc: SOXD Room: Type: [facility] Attending Dr: Diamond Case MD Copies to: [...] Miguel Ramey M.D.06/03/2022 1:11 PM Dictation Location: [place] [address] Transcribed By: [facility] 06/03/22 1311 Dictated By: Miguel Ramey II, MD 06/03/22 1310 Signed By: 06/03/22 1311 Normal [facility] XR hand LT min 3V* [facility] [employer] Other XR hand LT min 3V* [facility] Main [facility] [employer] Other XR hand LT min 3V* [address] [place] [address] [employer] Other XR hand LT min 3V* [place] [address] [facility] [employer] Other XR hand LT min 3V* XRay Report [facility] Other XR hand LT min 3V* Signed [facility] Other XR hand LT min 3V* Patient: Theresa Reyes MR#: [id number] [facility] [employer] Other XR hand LT min 3V* [id number] [employer] Other XR hand LT min 3V* : 1970 Acct:[id number] [employer] Other XR hand LT min 3V* Age/Sex: 52 / F ADM Date: 06/03/22 [employer] Other XR hand LT min 3V* Loc: SOXD Room: Type : [facility] [employer] Other XR hand LT min 3V* Attending Dr: Benny Case MD [employer] Other XR hand LT min 3V* Copies to: Diamond Case MD [employer] Other XR hand LT min 3V* Ordering Provider: Diamond Case MD [facility] Other XR hand LT min 3V* Date of Service: 06/03/22 [employer] Other XR hand LT min 3V* XR/XR hand LT min 3V*: PAIN [employer] Other XR hand LT min 3V* XR hand LT min 3V* 06/03/2022 8:44 AM [employer] Other XR hand LT min 3V* SIGNS AND SYMPTOMS: Left thumb/first metacarpal pain [employer] Other XR hand LT min 3V* PROTOCOL: Frontal, lateral, and oblique radiographs of the left hand: [employer] Other XR hand LT min 3V* COMPARISON: None [employer] Other XR hand LT min 3V* FINDINGS: [employer] Other XR hand LT min 3V* The bones are in anatomic alignment. There is mild degenerative change at the first carpometacarpal [employer] Other XR hand LT min 3V* junction. There is preservation of the joint spaces, otherwise. There is no fracture or dislocation. [employer] Other XR hand LT min 3V* No significant soft tissue swelling. [employer] Other XR hand LT min 3V* XR/XR hand LT min 3V* [employer] Other XR hand LT min 3V* IMPRESSION: [employer] Other XR hand LT min 3V* No acute bony injury. [employer] Other XR hand LT min 3V* Mild degenerative fa cet noted at the base of the thumb. [employer] Other XR hand LT min 3V* Impression dictated by: Miguel Ramey M.D.06/03/2022 1:11 PM [employer] Other XR hand LT min 3V* Dictation Location: [place] [address] [employer] Other XR hand LT min 3V* Transcribed By: KARRIE 06/03/22 [facility] [employer] Other XR hand LT min 3V* Dictated By: Miguel Ramey II, MD 06/03/22 [facility] [employer] Other XR hand LT min 3V* Signed By: [employer] Other XR hand LT min 3V* 06/03/[address] [place] [address] [employer] Other [employer] 05-15-2022 Reminders - From: Jessica Mims LPN To: GSN - Clinical; Sent: 05/15/2022 07:57:39 EST Show up: 04/06/2025 07:00:00 EST Subject: colonoscopy recall Due Date/Time: 05/07/2025 07:00:00 EST Reminder/Recall Patient is due for colonoscopy 05/07/2025 due to history of tubulovillous adenoma. Normal [facility] Pathology Noteon 05-09-2022 Pathology Note [id number]#1.00CD :127 Normal [facility] Outside Colonoscopyon 2022 Outside Colonoscopy [id number]#1.00C D:127 Normal [facility] PREG HCG QUALon 05-07-2022 , QUAL Negative Normal NEGATIVE [facility] Comment on above: Performed By: #### P REG #### [facility] [address] [place] [address] [address] Hu Can Pre-Certification Formon Pre-Certification Form [id number]#1.00 CD:127 Normal [facility] Consent for Procedure/Surger yon 04-10-2022 Consent for Procedure/Surgery [id number]#1.00C D:127 Normal [facility] Facesheeton 04-10-2022 Facesheet [id number]#1.00C D:127 Normal [facility] General Surgery Office/Clini c Noteon [...] SARS-CoV-2 (COVID-19) Ad26 vaccine 04/02/2020 Recorded Normal [facility] Comment on above: Result Comment: Elec tronically Signed By: JEFF PONCE, Morris Nelson\Date and Time Signed: 04/08/22 15:33 EST Covid-19 PCR (CVDTB)on 02-13 SARS-CoV-2 (COVID-19) RNA CLARISSA+probe Ql (Unsp spec) Not detected Normal NOT DETECTED [facility] Comment on above: Result Comment: When [...] for this test is supported by the [place] of Health and Human Service's declaration that [...] used). Performed By: #### C VDTB #### [facility] [address] [place] [address] Dr. Hu Can INFLUENZA A AND B AGon 02-26 [facility] SEE BELOW Normal [facility] Comment on above: Result Comment: Nega tive for Flu A protein angiten. Infection due to Flu A cannot be ruled out. Flu A angiten in the sample may be below the detection limit of the test. Performed By: #### I NFLUAB #### [facility] [address] [place] [address] Dr. [facility] Normal [facility] Comment on above: Result Comment: Nega tive for Flu B protein antigen. Infection due to Flu B cannot be ruled out. Flu B antigen in the sample may be below the detection limit of the test. Performed By: #### I NFLUAB #### [facility] [address] [place] [address] Dr. Hu Can INFLUENZA A AG Negative Normal NEGATIVE SEE COMMENT [facility] Comment on above: Performed By: #### I NFLUAB #### [facility] [address] [place] [address] Dr. Hu Can INFLUENZA B AG Negative Normal NEGATIVE SEE COMMENT [facility] Comment on above: Performed By: #### I NFLUAB #### [facility] [address] [place] [address] Dr. Hu Can INTERNAL CONTROLS Within Normal Limits Normal Wi thin Normal Limits [facility] Comment on above: Performed By: #### I NFLUAB #### [facility] [address] [place] [address] Dr. Hu Can CBC AUTO DIFFon 12-13-2021 BASO # 0.0 103/ul Normal 0.0-0.1 [facility] Comment on above: Performed By: #### C BC #### [facility] [address] [address] [address] Hu Can Basophils/100 WBC (Bld) 0.3 % Normal 0.2-2.0 [facility] Comment on above: Performed By: #### C BC #### [facility] [address] [place] [address] [address] Hu Can EO # 0.1 103/ul Normal 0.0-0.7 [facility] Comment on above: Performed By: #### C BC #### [facility] [address] [place] [address] Dr. Hu Can Eosinophils/100 WBC (Bld) 1.1 % Normal 0.9-7.0 [facility] Comment on above: Performed By: #### C BC #### [facility] [address] [place] [address] Dr. Hu Can Erythrocyte distribution width (RBC) [Ratio] 13.7 % Normal 11.0-15.0 [facility] Comment on above: Performed By: #### C BC #### [facility] [address] [place] [address] Dr. Hu Can Hematocrit (Bld) [Volume fraction] 44.6 % Normal 36.0-48.0 [facility] Comment on above: Performed By: #### C BC #### [facility] [address] [place] [address] Dr. Hu Can Hemoglobin (Bld) [Mass/Vol] 14.5 g/dL Normal 12.0-16.0 [facility] Comment on above: Performed By: #### C BC #### [facility] [address] [place] [address] Dr. Hu Can IG # 0.02 10e3/ul Normal 0.00-0.03 [facility] Comment on above: Performed By: #### C BC #### [facility] [address] [place] [address] Dr. Hu Can IG % 0.3 % Normal 0.0-0.5 [facility] Comment on above: Performed By: #### C BC #### [facility] [address] [place] [address] Dr. Hu Can LYMPH # 2.3 103/ul Normal 1.2-3.8 [facility] Comment on above: Performed By: #### C BC #### [facility] [address] [place] [address] Dr. Hu Can Lymphocytes/100 WBC (Bld) 30.5 % Normal 20.5-60.0 [facility] Comment on above: Performed By: #### C BC #### [facility] [address] [place] [address] Dr. Hu Can MANUAL DIFF REQ NO Normal [facility] Comment on above: Performed By: #### C BC #### [facility] [address] [place] [address] Dr. Hu Can MCH (RBC) [Entitic mass] 29.1 pg Normal 26.7-34.0 [facility] Comment on above: Performed By: #### C BC #### [facility] [address] [place] [address] Dr. Hu Can MCHC (RBC) [Mass/Vol] 32.5 g/dL Normal 29.9-35.2 [facility] Comment on above: Performed By: #### C BC #### [facility] [address] [place] [address] Dr. Hu Can MCV (RBC) [Entitic vol] 89.6 fL Normal 81.0-99.0 [facility] Comment on above: Performed By: #### C BC #### [facility] [address] [place] [address] Dr. Hu Can MONO # 0.5 103/ul Normal 0.3-0.8 [facility] Comment on above: Performed By: #### C BC #### [facility] [address] [place] [address] Dr. Hu Can Monocytes/100 WBC (Bld) 6.8 % Normal 1.7-12.0 [facility] Comment on above: Performed By: #### C BC #### [facility] [address] [place] [address] [address] Hu Can NEUT # 4.6 103/ul Normal 1.4-6.5 [facility] Comment on above: Performed By: #### C BC #### [facility] [address] [place] [address] [address] Hu Can Neutrophils/100 WBC (Bld) 61.0 % Normal 43.0-75.0 [facility] Comment on above: Performed By: #### C BC #### [facility] [address] [place] [address] [address] Hu Can Platelet mean volume (Bld) [Entitic vol] 9.3 fL Critically low 9.5-13.5 [facility] Comment on above: Performed By: #### C BC #### [facility] [address] [place] [address] Dr. Hu Can PLT 296 103/ul Normal 150-450 [facility] Comment on above: Performed By: #### C BC #### [facility] [address] [place] [address] Dr. Hu Can RBC 4.98 106/ul Normal 4.20-5.40 [facility] Comment on above: Performed By: #### C BC #### [facility] [address] [place] [address] Dr. Hu Can WBC 7.5 103/ul Normal 4.0-11.0 [facility] Comment on above: Performed By: #### C BC #### [facility] [address] [place] [address] Dr. Hu Can GLYCOHEMOGLOBIN A1Con 2021 ADA RECOMMENDATION SEE BELOW Normal [facility] Comment on above: Result Comment: ADA RECOMMENDED LIMIT 4.0 - 6.0 ADA THERAPEUTIC TARGET < 7.0 ACTION SUGGESTED > 7.0 Performed By: #### A 1C #### [facility] [address] [place] [address] Dr. Hu Can Glucose [Mass/Vol] 114 mg/dL Normal [facility] Comment on above: Performed By: #### A 1C #### [facility] [address] [place], [place] [address] Dr. Hu Can HbA1c (Bld) [Mass fraction] 5.6 % Normal 4.5-6.2 [facility] Comment on above: Performed By: #### A 1C #### [facility] [address] [place] [address] [address] Hu Can LIPID PROFILEon 12-13-2021 CHOL-HDL RATIO NORM SEE BELOW Normal [facility] Comment on above: Result Comment: 3.3 - 4.4 LOW RISK 4.4 - 7.1 AVERAGE RISK 7.1 - 11.0 MODERATE RISK >11.0 HIGH RISK Performed By: #### T SH, CMP, LIPID ####[facility] [address] [place] [address]Dr. Hu Can Cholesterol [Mass/Vol] 279 mg/dL Critically high <=200 [facility] Comment on above: Performed By: #### T SH, CMP, LIPID ####[facility] [address] [place] [address]Dr. Hu Can Cholesterol in HDL [Mass/Vol] 50 mg/dL Normal 40-60 [facility] Comment on above: Performed By: #### T SH, CMP, LIPID ####[facility] [address] [place] [address]Dr. Hu Can Cholesterol in LDL [Mass/Vol] 197.8 mg/dL Normal [facility] Comment on above: Performed By: #### T SH, CMP, LIPID ####[facility] [address] [place] [address]Dr. Hu Can Cholesterol.total/ Cholesterol in HDL [Mass ratio] 5.6 {ratio} Normal [facility] Comment on above: Performed By: #### T SH, CMP, LIPID ####[facility] [address] [place] [address]Dr. Hu Can HDL NORMAL > or = 60 mg/dl - LO W CARDIOVASCULAR RISK <40 mg/dl - HIGH CARDIOVASCULAR RISK Normal [facility] Comment on above: Performed By: #### T SH, CMP, LIPID ####[facility] [address] [place] [address]Dr. Hu Can LDL CALC NORMAL SEE BELOW Normal [facility] Comment on above: Result Comment: <100 mg/dl OPTIMAL 100 - 129 mg/dl NEAR OR ABOVE OPTIMAL 130 - 159 mg/dl BORDERLINE HIGH 160 - 189 mg/dl HIGH >190 mg/dl VERY HIGH Performed By: #### T SH, CMP, LIPID ####[facility] [address] [place] [address]Dr. Hu Can Triglyceride [Mass/Vol] 156 mg/dL Critically high <=150 [facility] Comment on above: Performed By: #### T SH, CMP, LIPID ####[facility] [address] [place] [address]Dr. Hu Can VLDL CALC 31.2 mg/dL Normal [facility] Comment on above: Performed By: #### T SH, CMP, LIPID ####[facility] [address] [place] [address]Dr. Hu Can PROF 14(COMP METB)on 022 Albumin [Mass/Vol] 3.8 g/dL Normal 3.4-5.0 [facility] Comment on above: Performed By: #### T SH, CMP, LIPID ####[facility] [address] [place], [place] [address]Dr. Hu Can Albumin/Globulin [Mass ratio] 1.2 {ratio} Normal [facility] Comment on above: Performed By: #### T SH, CMP, LIPID ####[facility] [address] [place] [address]Dr. Hu Can ALP [Catalytic activity/Vol] 74 U/L Normal 46-116 [facility] Comment on above: Performed By: #### T SH, CMP, LIPID ####[facility] [address] [place] [address]Dr. Hu Can ALT [Catalytic activity/Vol] 19 U/L Normal 14-59 [facility] Comment on above: Performed By: #### T SH, CMP, LIPID ####[facility] [address] [place] [address]Dr. Hu Can Anion gap [Moles/Vol] 11.0 mmol/L Normal [facility] Comment on above: Performed By: #### T ABDI, CMP, LIPID ####[facility] [address] [place] [address]Dr. Hu Can AST [Catalytic activity/Vol] 12 U/L Critically low 15-37 [facility] Comment on above: Performed By: #### T SH, CMP, LIPID ####[facility] [address] [place] [address]Dr. Hu Can Bilirubin [Mass/Vol] 0.7 mg/dL Normal 0.2-1.0 [facility] Comment on above: Performed By: #### T ABDI, CMP, LIPID ####[facility] [address] [place] [address]Dr. Hu Can Calcium [Mass/Vol] 8.7 mg/dL Normal 8.5-10.1 [facility] Comment on above: Performed By: #### T ABDI, CMP, LIPID ####[facility] [address] [place] [address]Dr. Hu Can Chloride [Moles/Vol] 102 mmol/L Normal 98-107 [facility] Comment on above: Performed By: #### T SH, CMP, LIPID ####[facility] [address] [place] [address]Dr. Hu Can CO2 [Moles/Vol] 28.2 mmol/L Normal 21.0-32.0 [facility] Comment on above: Performed By: #### T SH, CMP, LIPID ####[facility] [address] [place] [address]Dr. Hu Can Creatinine [Mass/Vol] 0.91 mg/dL Normal 0.55-1.02 [facility] Comment on above: Performed By: #### T SH, CMP, LIPID ####[facility] [address] [place] [address]Dr. Hu Can EGFR-AF PORTUGUESE >60 Normal >=60 [facility] Comment on above: Performed By: #### T SH, CMP, LIPID ####[facility] [address] [place] [address]Dr[address] Hu Can EGFR-NON AF [place]UESE >60 Normal >=60 [facility] Comment on above: Performed By: #### T SH, CMP, LIPID ####[facility] [address] [place] [address]Dr. Hu Can Globulin (S) [Mass/Vol] 3.3 g/dL Normal [facility] Comment on above: Performed By: #### T SH, CMP, LIPID ####[facility] [address] [place] [address]Dr. Hu Can Glucose [Mass/Vol] 105 mg/dL Normal 74-106 [facility] Comment on above: Performed By: #### T SH, CMP, LIPID ####[facility] [address] [place] [address]Dr. Hu Can Potassium [Moles/Vol] 4.2 mmol/L Normal 3.5-5.1 [facility] Comment on above: Performed By: #### T SH, CMP, LIPID ####[facility] [address] [place] [address]Dr. Hu Can Protein [Mass/Vol] 7.1 g/dL Normal 6.4-8.2 [facility] Comment on above: Performed By: #### T SH, CMP, LIPID ####[facility] [address] [place] [address]Dr. Hu Can Sodium [Moles/Vol] 137 mmol/L Normal 136-145 [facility] Comment on above: Performed By: #### T SH, CMP, LIPID ####[facility] [address] [place] [address]Dr. Hu Can Urea nitrogen [Mass/Vol] 23.0 mg/dL Critically high 7.0-18.0 [facility] Comment on above: Performed By: #### T SH, CMP, LIPID ####[facility] [address] [place] [address]Dr. Hu Can Urea nitrogen/Creatinin e [Mass ratio] 25.3 mg/mg Normal [facility] Comment on above: Performed By: #### T SH, CMP, LIPID ####[facility] [address] [place], [place] [address]Ag. Hu Can TSHon 12-13-2021 TSH 1.249 uIU/mL Normal 0.358-3.740 [facility] Comment on above: Performed By: #### T SH, CMP, LIPID ####[facility] [address] [place], [place] [address]Mv. Hu Can XR CSPINE MIN 4 VIEWSon [...] AL CAMPOS Date: 2021-12-07 19:38 Normal [facility] MG MAMM SCREEN 3D HIEU CADon 10-28-2021 MG MAMM SCREEN 3D HIEU CAD Patient: THERESA REYES Exam Date: 10/28/2021 : 1970 Gender:F Ordering : DR GABBY DEE . Admission #: [id number] Family : Order #: [id number] CLICK HERE TO VIEW EXAM RADIOLOGY REPORT [...] ovarian cancer at age 80. LOCATION: [facility] BREAST COMPOSITION: Scattered areas fibroglandular density. [...] M.D. on 10/28/2021 at 12:02 Normal [facility] Covid-19 PCR (CVDTB)on 09-15 SARS-CoV-2 (COVID-19) RNA CLARISSA+probe Ql (Unsp spec) Not detected Normal NOT DETECTED [facility] Comment on above: Result Comment: When [...] for this test is supported by the [employer] of Health and Human Service's declaration that [...] longer be used). Performed By: #### [facility] #### [facility] [address] [place] [address] Dr. Hu Can Covid-19 PCR (CVDTB)on 09-14 SARS-CoV-2 (COVID-19) RNA CLARISSA+probe Ql (Unsp spec) Detected Critically abnormal NOT DETECTED [facility] Comment on above: Result Comment: This test is not yet approved or cleared by the [place] FDA. When there are no FDA-approved or cleared tests available, and other criteria are met, FDA can make tests available under an emergency access mechanism called an Emergency Use Authorization (EUA). The EUA for this test is supported by the [place] of Health and Human Service's declaration that [...] longer be used). Performed By: #### C [facility] ####[facility] [address] [place], [place] [address]Pg. Hu Can Pathology Noteon 07-12-2021 Pathology Note [id number]#1.00C D:127 Normal [facility] Vital Signs Date Time Vital Sign Value Performing Clinician Facility 09-02-2022 09:30-0400 Body height 170.18 cm [facility] Other [facility] Other 09-02-2022 09:30-0400 Body mass index (BMI) [Ratio] 30.85 kg/m2 [facility] Other [facility] Other 09-02-2022 09:30-0400 Body weight 89.36 kg Diamond Darudar Other [facility] Other 04-08-2022 15:14-0500 Blood Pressure Location Morris CAGLE [facility] 04-08-2022 15:14-0500 Diastolic blood pressure 88 mm[Hg] Morris CAGLE [facility] 04-08-2022 15:14-0500 Heart rate 72 /min Morris CAGLE [facility] 04-08-2022 15:14-0500 Respiratory rate 16 /min Morris CAGLE [facility] 04-08-2022 15:14-0500 Systolic blood pressure 128 mm[Hg] Morris CAGLE General Surgery Diamond Encounters Encounter Date Encounter Type Care Provider Facility Start: 01-02-2023 End: 01-02-2023 ambulatory Diamond Case Other [facility] Other Start: 01-02-2023 Office outpatient vi sit 15 minutes Diamond Calvey [facility] Start: 09-23-2022 End: 09-23-2022 ambulatory Diamondgiorgi Case Other [facility] Other Start: 09-23-2022 Office outpatient vi sit 15 minutes Diamond Calvey [facility] Start: 09-02-2022 End: 09-02-2022 ambulatory Diamondgiorgi Case Other [facility] Other Start: 09-02-2022 Office outpatient vi sit 15 minutes Diamond Calvey [facility] Start: 07-08-2022 End: 07-08-2022 ambulatory Diamond Calvey Other [facility] Other Start: 07-08-2022 Office outpatient vi sit 15 minutes Diamond Calvey [facility] Start: 06-03-2022 Office outpatient vi sit 15 minutes Diamond Calvey [facility] Start: 06-03-2022 End: 06-03-2022 ambulatory Diamond Case Facility:[facility] Start: 06-03-2022 End: 06-03-2022 ambulatory MD Diamond Case Work Phone: [facility] Work Phone: Start: 06-03-2022 End: 06-03-2022 Patient encounter procedure MD Diamond Case Work Phone: [facility] Start: 05-16-2022 End: 05-17-[address] GABBY DEE . Facility: Start: 05-14-2022 End: 05-22-[address] GABBY DEE . Facility:[facility] Start: 05-07-2022 End: 05-08-2022 ambulatory Morris CAGLE Facility:CD:[id number] Start: 05-06-2022 End: 05-06-2022 ambulatory Diamond Case Other [facility] Other Start: 05-06-2022 Office outpatient ne w 30 minutes Diamond Case [facility] Start: 04-08-2022 End: 04-09-2022 ambulatory Morris CAGLE Facility:[facility] Start: 04-08-2022 End: 04-08-2022 Patient encounter procedure Morris CAGLE General Surgery Nill/Said Diamond Start: 03-16-[address] GABBY DEE . Facili ty:[facility] Start: 02-26-2022 End: 02-26-[address] GABBY DEE . Facility:[facility] Start: 01-01-2022 End: 01-31-[address] GABBY DEE . Facility:[facility] Start: 12-16-2021 Encounter for genera l adult medical examination without abnormal findings DR GABBY DEE . [facility] Start: 12-13-2021 End: 12-14-[address] [...] vaccine, unspecified formulation Morris CAGLE [facility] [place] 04-30-2020 SARS-CoV-2 (COVID-19 ) Ad26 vaccine, recombinant Morris NILL [facility] [place] 04-02-2020 SARS-CoV-2 (COVID-19 ) Ad26 vaccine, recombinant Morris NILL [facility] [place] Payers Date Payer Category Payer Self-pay 2022 Unknown [id number] 2019 Unknown [id number] 1970 Unknown [id number] 2.16.8 40.1.776883.3.579.2.727 1970 Unknown [id number] 2.16.8 40.1.511684.3.579.2.727 1970 Unknown [id number] 2.16.84 0.1.889940.3.579.2.593 1970 Unknown [id number] 2.16.84 0.1.582613.3.579.2.593 1970 Unknown [id number] 2.16.84 0.1.726352.3.579.2.593 1970 Unknown [id number] 2.16.84 0.1.872277.3.579.2.593 1970 Unknown [id number] 2.16.84 0.1.973256.3.579.2.593 1970 Unknown [id number] 2.16.84 0.1.638124.3.579.2.593 1970 Unknown [id number] 2.16.84 0.1.083445.3.579.2.593 1970 Unknown [id number] 2.16.84 0.1.298258.3.579.2.593 1970 Unknown [id number] 2.16.84 0.1.776003.3.579.2.593 1970 Unknown [id number] 2.16.84 0.1.801673.3.579.2.593 1970 Unknown [id number] 2.16.84 0.1.464844.3.579.2.593 1959 Self-pay [id number] Unknown [id number] 2.16.8 40.1.312169.3.579.2.531 Social History Date Type Detail Facility Start: 04-08-2022 Tobacco smoking status Never s moked tobacco (finding) [facility] Tobacco smoking status Never [facility] Sex Assigned At Female [facility] Start: 1970 Sex Assigned At Female [facility] Functional Status Date Assessment Result Facility 04-08-2022 [...] well as cortisone injection and surgical release. [facility] Other 07-11-2023 Evaluation note* Encounter Date Diagnosis [...] Left hand pain (ICD- 10 - M79.642) [facility] Other 06-20-2023 Evaluation note* Encounter Date Diagnosis [...] joint of left hand (ICD-10 - M18.12) [facility] Other 2023 Evaluation note* Encounter Date Diagnosis [...] joint of left hand (ICD-10 - M18.12) [facility] Other 03-21-2023 Evaluation note* Encounter Date Diagnosis [...] and tingle for hours after this injection. [facility] Other 03-04-2023 NotePROCEDURE: XR FOOT RT MIN [...] Electronically authenticated by: AL CAMPOS Date: 2022-05-17 12:06[facility]02-22-2023 NoteOPERATIVE NOTE OPERATION DATE: 05/07/2022 PREOPERATIVE DIAGNOSIS: Personal history of villoglandular sigmoid polyp. POSTOPERATIVE DIAGNOSIS: Rectal polyps x2, 2 mm and 4 mm. PROCEDURE: Colonoscopy to cecum with hot snare polypectomy x1 and cold biopsy forceps polypectomy x1. SURGEON: Morris Cagel M.D. ANESTHESIA: Monitored anesthesia care. ESTIMATED BLOOD [...] in good condition. CC: Gabby Dee M.D.[id number] NoteOPERATIVE NOTE OPERATION DATE: 05/07/2022 ADDENDUM: The distal rectal 4 mm irregular flat polyp was removed with hot snare with good hemostasis, not with cold biopsy forceps.[facility] 05-06-2022 Evaluation note* Encounter Date Diagnosis [...] Apr, Right hand pain (ICD-10 - M79.641) [facility] Other 09-24-2022 NotePROCEDURE: XR SHOULDER LT 2V or > COMPARISON: None. HISTORY: Impingement syndrome of shoulder region FINDINGS: BONES:No fracture, acute abnormality, or significant arthropathy. SOFT TISSUES:Negative. No visible soft tissue swelling. EFFUSION:None visible. OTHER: Negative. IMPRESSION: No acute disease. Electronically authenticated by: AL CAMPOS Date: 2021-12-07 19:36[facility] No data available for this section [facility] [place] Evaluation noteNo assessment information available [facility] Work Phone: History general Narrative - Reported* Type Description Date Medical History high cholesterol Surgical History Foot Surgery Surgical History clogged tear duct [facility] Other Hospital Discharge instructions No data available for this section [facility] [place] Progress note No data available for this section [facility] [place] Summary Purpose Family History No Family History [...] section and content) DATE CREATED AUTHOR 05/16/2022 [facility] [email or web address] [facility] DATE CREATED AUTHOR AUTHOR'S ORGANIZ ATION 06/18/2022 [facility] DATE CREATED AUTHOR AUTHOR'S ORGANIZ ATION [...] BE BASED ON THE PRIMARY CLINICAL RECORDS. [employer] provides no warranty or guarantee of the accuracy or completeness of information in this document.
--- NOTE | 2023-11-13 07:31 | MM_ITS ---
Patient Name: THERESA JOSHUA MR#: [id number] : 1970 Exam Date: 11/13/2023 Ordering Doctor: DR Willem Donato . RADIOLOGY REPORT PROCEDURE: MM TOMOSYNTHESIS SCREENING BI COMPARISON: MM TOMOSYNTHESIS SCREENING BI, 11/10/2022. MG MAMM SCREEN 3D HIEU CAD, 10/28/2021. MG MAMM SCREEN 3D HIEU CAD, 10/26/2020. MG MAMM HIEU SCRN W CAD DIG, 01/20/2013. INDICATIONS: Screening Calculator Name NCI Breast Cancer Risk Assessment Tool 5 Year Breast Cancer Risk 1.20% Lifetime Breast Cancer Risk 9.40% Personal Breast Cancer No Personal Ovarian Cancer No Treatments None Family Cancers Cousin-maternal with breast cancer at age 50; Grandmother-maternal with ovarian cancer at age ~80. LOCATION: [facility] BREAST COMPOSITION: There are scattered areas of fibroglandular density. FINDINGS: DIAGNOSTIC CATEGORY 2--BENIGN FINDING: RIGHT BREAST: No significant suspicious finding. Stable, chronic benign-appearing lymph node posterior upper-outer quadrant. No significant change has occurred. LEFT BREAST: No significant suspicious finding. No significant change has occurred. RECOMMENDATIONS: ROUTINE MAMMOGRAM AND CLINICAL EVALUATION IN 12 MONTHS. PLEASE NOTE: A NORMAL MAMMOGRAM DOES NOT EXCLUDE THE POSSIBILITY OF BREAST CANCER. A CLINICALLY SUSPICIOUS PALPABLE LUMP SHOULD BE BIOPSIED. Dictated by: Kan Salas M.D. on 11/18/2023 at 14:08 Approved by: Kan Salas M.D. on 11/18/2023 at 14:12
== END 2023-11-13 07:29 | disposition home or self-care (01) ==
LOC: MAMMO 07:28
PROVIDERS: PCP Family Medicine; Visit Provider Obstetrics & Gynecology
DX: Z12.31 Encounter for screening mammogram for malignant neoplasm of breast (principal); Z80.3 Family history of malignant neoplasm of breast; Z80.41 Family history of malignant neoplasm of ovary
CPT/HCPCS: 77063; 77067

== ENCOUNTER 2023-12-04 08:40 | Outpatient (OUT) | payer BC, SELFPAY ==
--- NOTE | 2023-12-04 | XR_ITS ---
The [address] [address] Patient Name: THERESA JOSHUA MRN: [id number] date: 1970 Sex: F Assigned Patient Location: Current Patient Location: Accession/Order Number: [id number] Exam Date: 12/04/2023 08:40 Report Date: 12/07/2023 12:58 At the request of: KRAIG ANG Procedure: XR cervical spine 2-3V EXAMINATION: XR cervical spine 2-3V HISTORY: CERVICAL SPINE PAIN COMPARISON: 08/21/2023 FINDINGS: BONES: Normal alignment with no acute fracture or spondylolisthesis. Stable fusion with a plate and screws C3-C6. Moderate spondylosis and facet osteoarthropathy most significant C6-7 DISC SPACES: Moderate narrowing C6-7. Interbody spacers C3-C6 PARASPINOUS: Negative. No paraspinous abnormality is seen. OTHER: Negative. XR/XR cervical spine 2-3V IMPRESSION: Stable cervical fusion with no mechanical failure Electronically authenticated by: AL CAMPOS Date: 12/07/2023 12:58
--- OUTSIDE RECORDS SUMMARY | 2023-12-04 08:49 | XMS_ITS | CCD ---
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 Role Phone Gabby Dee Primary Care [...] Unavailable HOY ., DR PIERRE Admitting Unavailable POST, DR AL Shaikh Consulting Unavailable HOY ., [...] Unavailable HOY ., DR PIERRE Consulting Unavailable POST, DR AL Shaikh Consulting Unavailable HOY ., DR PIERRE Admitting Unavailable HOY ., DR PIERRE Attending Unavailable HOY ., DR PIERRE Primary Care Unavailable Allergies Allergy Classification Reported Allergen(s) Allergy Type Date of Onset Reaction(s) Facility (1 source) No Known Medication Allergies; Translations: [No Known Medication Allergies] Propensity to adverse reactions (disorder) [facility] Repository (2 sources) Baclofen Drug Allergy [facility] Medications Current Medications Medication Drug [...] min 3V* [facility] Main [address] [address] XRay Report Signed Patient: Theresa Reyes MR#: [id number] : 1970 Acct:[id number] Age/Sex: 52 / F ADM Date: 06/03/22 Loc: SOXD Room: Type: [facility] Attending Dr: Diamond Case MD Copies [...] Miguel Ramey M.D.06/03/2022 1:11 PM Dictation Location: [place] [address] Transcribed By: [facility] 06/03/22 1311 Dictated By: Miguel Ramey II, MD 06/03/22 1310 Signed By: 06/03/22 1311 Normal [facility] XR hand LT min 3V* [facility] [employer] Other XR hand LT min 3V* [facility] Main [facility] [employer] Other XR hand LT min 3V* [address] [place] [address] [employer] Other XR hand LT min 3V* [place] [address] [facility] [employer] Other XR hand LT min 3V* XRay Report [facility] Other XR hand LT min 3V* Signed [facility] Other XR hand LT min 3V* Patient: Theresa Reyes MR#: [id number] [facility] [employer] Other XR hand LT min 3V* [id number] [facility] Other XR hand LT min 3V* : 1970 Acct:[id number] [facility] [facility] Other XR hand LT min 3V* Age/Sex: 52 / F ADM Date: 06/03/22 [facility] [employer] [facility] Other XR hand LT min 3V* Loc: SOXD Room: Type : [facility] Other XR hand LT min 3V* Attending Dr: Benny Case MD [employer] [facility] [employer] Other XR hand LT min 3V* Copies to: Diamond Case MD [facility] Other XR hand LT min 3V* Ordering Provider: Diamond Case MD [facility] Other XR hand LT min 3V* Date of Service: 06/03/22 [facility] Other XR hand LT min 3V* XR/XR hand LT min 3V*: PAIN [facility] Other XR hand LT min 3V* XR hand LT min 3V* 06/03/2022 8:44 AM [facility] Other XR hand LT min 3V* SIGNS AND SYMPTOMS: Left thumb/first metacarpal pain [facility] Other XR hand LT min 3V* PROTOCOL: Frontal, lateral, and oblique radiographs of the left hand: [facility] Other XR hand LT min 3V* COMPARISON: None [facility] Other XR hand LT min 3V* FINDINGS: [facility] Other XR hand LT min 3V* The bones are in anatomic alignment. There is mild degenerative change at the first carpometacarpal [facility] [employer] [facility] Other XR hand LT min 3V* junction. There is preservation of the joint spaces, otherwise. There is no fracture or dislocation. [facility] Other XR hand LT min 3V* No significant soft tissue swelling. [facility] Other XR hand LT min 3V* XR/XR hand LT min 3V* [facility] [employer] [facility] Other XR hand LT min 3V* IMPRESSION: [facility] [employer] [facility] [employer] Other XR hand LT min 3V* No acute bony injury. [facility] [employer] [facility] Other XR hand LT min 3V* Mild degenerative fa cet noted at the base of the thumb. [facility] [employer] [facility] Other XR hand LT min 3V* Impression dictated by: Miguel Ramey M.D.06/03/2022 1:11 PM [facility] Other XR hand LT min 3V* Dictation Location: [place] [address] [facility] [employer] [facility] Other XR hand LT min 3V* Transcribed By: KARRIE 06/03/22 [facility] Other XR hand LT min 3V* Dictated By: Miguel Ramey II, MD 06/03/22 [facility] [employer] Other XR hand LT min 3V* Signed By: [facility] [employer] [facility] Other XR hand LT min 3V* 06/03/[address] [place] [address] [employer] Other [employer] 05-15-2022 Reminders - From: Jessica Mims LPN To: GSN - Clinical; Sent: 05/15/2022 07:57:39 EST Show up: 04/06/2025 07:00:00 EST Subject: colonoscopy recall Due Date/Time: 05/07/2025 07:00:00 EST Reminder/Recall Patient is due for colonoscopy 05/07/2025 due to history of tubulovillous adenoma. Normal [facility] Pathology Noteon 05-09-2022 Pathology Note [id number]#1.00CD :127 Normal [facility] Outside Colonoscopyon 2022 Outside Colonoscopy [id number]#1.00C D:127 Normal [facility] PREG HCG QUALon 05-07-2022 , QUAL Negative Normal NEGATIVE [facility] Comment on above: Performed By: #### P REG #### [facility] [address] [place] [address] [address] Hu Can Pre-Certification Formon Pre-Certification Form [id number]#1.00 CD:127 Normal [facility] Consent for Procedure/Surger yon 04-10-2022 Consent for Procedure/Surgery [id number]#1.00C D:127 Normal [facility] Facesheeton 04-10-2022 Facesheet [id number]#1.00C D:127 Normal [facility] General Surgery Office/Clini c Noteon 04-08-2022 [...] SARS-CoV-2 (COVID-19) Ad26 vaccine 04/02/2020 Recorded Normal [facility] Comment on above: Result Comment: Elec tronically Signed By: JEFF PONCE, Morris Nelson\Date and Time Signed: 04/08/22 15:33 EST Covid-19 PCR (CVDTB)on 02-13 SARS-CoV-2 (COVID-19) RNA CLARISSA+probe Ql (Unsp spec) Not detected Normal NOT DETECTED [facility] Comment on above: Result Comment: When [...] for this test is supported by the [place] of Health and Human Service's declaration that [...] used). Performed By: #### C VDTB #### [facility] [address] [place] [address] Dr. Hu Can INFLUENZA A AND B AGon 02-26 [facility] SEE BELOW Normal [facility] Comment on above: Result Comment: Nega tive for Flu A protein angiten. Infection due to Flu A cannot be ruled out. Flu A angiten in the sample may be below the detection limit of the test. Performed By: #### I NFLUAB #### [facility] [address] [place] [address] Dr. Hu [facility] SEE BELOW Normal [facility] Comment on above: Result Comment: Nega tive for Flu B protein antigen. Infection due to Flu B cannot be ruled out. Flu B antigen in the sample may be below the detection limit of the test. Performed By: #### I NFLUAB #### [facility] [address] [place] [address] Dr. Hu Can INFLUENZA A AG Negative Normal NEGATIVE SEE COMMENT [facility] Comment on above: Performed By: #### I NFLUAB #### [facility] [address] [place] [address] Dr. Hu Can INFLUENZA B AG Negative Normal NEGATIVE SEE COMMENT [facility] Comment on above: Performed By: #### I NFLUAB #### [facility] [address] [place] [address] Dr. Hu Can INTERNAL CONTROLS Within Normal Limits Normal Wi thin Normal Limits [facility] Comment on above: Performed By: #### I NFLUAB #### [facility] [address] [place] [address] Dr. Hu Can CBC AUTO DIFFon 12-13-2021 BASO # 0.0 103/ul Normal 0.0-0.1 [facility] Comment on above: Performed By: #### C BC #### [facility] [address] [place] [address] [address] Hu Can Basophils/100 WBC (Bld) 0.3 % Normal 0.2-2.0 [facility] Comment on above: Performed By: #### C BC #### [facility] [address] [place] [address] [address] Hu Can EO # 0.1 103/ul Normal 0.0-0.7 [facility] Comment on above: Performed By: #### C BC #### [facility] [address] [place] [address] Dr. Hu Can Eosinophils/100 WBC (Bld) 1.1 % Normal 0.9-7.0 [facility] Comment on above: Performed By: #### C BC #### [facility] [address] [place] [address] Dr. Hu Can Erythrocyte distribution width (RBC) [Ratio] 13.7 % Normal 11.0-15.0 [facility] Comment on above: Performed By: #### C BC #### [facility] [address] [place] [address] Dr. Hu Can Hematocrit (Bld) [Volume fraction] 44.6 % Normal 36.0-48.0 [facility] Comment on above: Performed By: #### C BC #### [facility] [address] [place] [address] Dr. Hu Can Hemoglobin (Bld) [Mass/Vol] 14.5 g/dL Normal 12.0-16.0 [facility] Comment on above: Performed By: #### C BC #### [facility] [address] [place] [address] Dr. Hu Can IG # 0.02 10e3/ul Normal 0.00-0.03 [facility] Comment on above: Performed By: #### C BC #### [facility] [address] [place] [address] Dr. Hu Can IG % 0.3 % Normal 0.0-0.5 [facility] Comment on above: Performed By: #### C BC #### [facility] [address] [place] [address] Dr. Hu Can LYMPH # 2.3 103/ul Normal 1.2-3.8 [facility] Comment on above: Performed By: #### C BC #### [facility] [address] [place] [address] Dr. Hu Can Lymphocytes/100 WBC (Bld) 30.5 % Normal 20.5-60.0 [facility] Comment on above: Performed By: #### C BC #### [facility] [address] [place] [address] Dr. Hu Can MANUAL DIFF REQ NO Normal [facility] Comment on above: Performed By: #### C BC #### [facility] [address] [place] [address] Dr. Hu Can MCH (RBC) [Entitic mass] 29.1 pg Normal 26.7-34.0 [facility] Comment on above: Performed By: #### C BC #### [facility] [address] [place] [address] Dr. Hu Can MCHC (RBC) [Mass/Vol] 32.5 g/dL Normal 29.9-35.2 [facility] Comment on above: Performed By: #### C BC #### [facility] [address] [place] [address] Dr. Hu Can MCV (RBC) [Entitic vol] 89.6 fL Normal 81.0-99.0 [facility] Comment on above: Performed By: #### C BC #### [facility] [address] [place] [address] Dr. Hu Can MONO # 0.5 103/ul Normal 0.3-0.8 [facility] Comment on above: Performed By: #### C BC #### [facility] [address] [place] [address] Dr. Hu Can Monocytes/100 WBC (Bld) 6.8 % Normal 1.7-12.0 [facility] Comment on above: Performed By: #### C BC #### [facility] [address] [place] [address] [address] Hu Can NEUT # 4.6 103/ul Normal 1.4-6.5 [facility] Comment on above: Performed By: #### C BC #### [facility] [address] [place] [address] [address] Hu Can Neutrophils/100 WBC (Bld) 61.0 % Normal 43.0-75.0 [facility] Comment on above: Performed By: #### C BC #### [facility] [address] [place] [address] [address] Hu Can Platelet mean volume (Bld) [Entitic vol] 9.3 fL Critically low 9.5-13.5 [facility] Comment on above: Performed By: #### C BC #### [facility] [address] [place] [address] Dr. Hu Can PLT 296 103/ul Normal 150-450 [facility] Comment on above: Performed By: #### C BC #### [facility] [address] [place] [address] Dr. Hu Can RBC 4.98 106/ul Normal 4.20-5.40 [facility] Comment on above: Performed By: #### C BC #### [facility] [address] [place] [address] Dr. Hu Can WBC 7.5 103/ul Normal 4.0-11.0 [facility] Comment on above: Performed By: #### C BC #### [facility] [address] [place] [address] Dr. Hu Can GLYCOHEMOGLOBIN A1Con 2021 ADA RECOMMENDATION SEE BELOW Normal [facility] Comment on above: Result Comment: ADA RECOMMENDED LIMIT 4.0 - 6.0 ADA THERAPEUTIC TARGET < 7.0 ACTION SUGGESTED > 7.0 Performed By: #### A 1C #### [facility] [address] [place] [address] Dr. Hu Can Glucose [Mass/Vol] 114 mg/dL Normal [facility] Comment on above: Performed By: #### A 1C #### [facility] [address] [place], [place] [address] Dr. Hu Can HbA1c (Bld) [Mass fraction] 5.6 % Normal 4.5-6.2 [facility] Comment on above: Performed By: #### A 1C #### [facility] [address] [place] [address] [address] Hu Can LIPID PROFILEon 12-13-2021 CHOL-HDL RATIO NORM SEE BELOW Normal [facility] Comment on above: Result Comment: 3.3 - 4.4 LOW RISK 4.4 - 7.1 AVERAGE RISK 7.1 - 11.0 MODERATE RISK >11.0 HIGH RISK Performed By: #### T SH, CMP, LIPID ####[facility] [address] [place] [address]Dr. Hu Can Cholesterol [Mass/Vol] 279 mg/dL Critically high <=200 [facility] Comment on above: Performed By: #### T SH, CMP, LIPID ####[facility] [address] [place] [address]Dr. Hu Can Cholesterol in HDL [Mass/Vol] 50 mg/dL Normal 40-60 [facility] Comment on above: Performed By: #### T SH, CMP, LIPID ####[facility] [address] [place] [address]Dr. Hu Can Cholesterol in LDL [Mass/Vol] 197.8 mg/dL Normal [facility] Comment on above: Performed By: #### T SH, CMP, LIPID ####[facility] [address] [place] [address]Dr. Hu Can Cholesterol.total/ Cholesterol in HDL [Mass ratio] 5.6 {ratio} Normal [facility] Comment on above: Performed By: #### T SH, CMP, LIPID ####[facility] [address] [place] [address]Dr. Hu Can HDL NORMAL > or = 60 mg/dl - LO W CARDIOVASCULAR RISK <40 mg/dl - HIGH CARDIOVASCULAR RISK Normal [facility] Comment on above: Performed By: #### T SH, CMP, LIPID ####[facility] [address] [place] [address]Dr. Hu Can LDL CALC NORMAL SEE BELOW Normal [facility] Comment on above: Result Comment: <100 mg/dl OPTIMAL 100 - 129 mg/dl NEAR OR ABOVE OPTIMAL 130 - 159 mg/dl BORDERLINE HIGH 160 - 189 mg/dl HIGH >190 mg/dl VERY HIGH Performed By: #### T SH, CMP, LIPID ####[facility] [address] [place] [address]Dr. Hu Can Triglyceride [Mass/Vol] 156 mg/dL Critically high <=150 [facility] Comment on above: Performed By: #### T SH, CMP, LIPID ####[facility] [address] [place] [address]Dr. Hu Can VLDL CALC 31.2 mg/dL Normal [facility] Comment on above: Performed By: #### T SH, CMP, LIPID ####[facility] [address] [place] [address]Dr. Hu Can PROF 14(COMP METB)on 022 Albumin [Mass/Vol] 3.8 g/dL Normal 3.4-5.0 [facility] Comment on above: Performed By: #### T SH, CMP, LIPID ####[facility] [address] [place] [address] [place], [place] [address]Dr. Hu Can Albumin/Globulin [Mass ratio] 1.2 {ratio} Normal [facility] Comment on above: Performed By: #### T SH, CMP, LIPID ####[facility] [address] [place] [address]Dr. Hu Can ALP [Catalytic activity/Vol] 74 U/L Normal 46-116 [facility] Comment on above: Performed By: #### T SH, CMP, LIPID ####[facility] [address] [place] [address]Dr. Hu Can ALT [Catalytic activity/Vol] 19 U/L Normal 14-59 [facility] Comment on above: Performed By: #### T SH, CMP, LIPID ####[facility] [address] [place] [address]Dr. Hu Can Anion gap [Moles/Vol] 11.0 mmol/L Normal [facility] Comment on above: Performed By: #### T ABDI, CMP, LIPID ####[facility] [address] [place] [address]Dr. Hu Can AST [Catalytic activity/Vol] 12 U/L Critically low 15-37 [facility] Comment on above: Performed By: #### T SH, CMP, LIPID ####[facility] [address] [place] [address]Dr. Hu Can Bilirubin [Mass/Vol] 0.7 mg/dL Normal 0.2-1.0 [facility] Comment on above: Performed By: #### T ABDI, CMP, LIPID ####[facility] [address] [place] [address]Dr. Hu Can Calcium [Mass/Vol] 8.7 mg/dL Normal 8.5-10.1 [facility] Comment on above: Performed By: #### T ABDI, CMP, LIPID ####[facility] [address] [place] [address]Dr. Hu Can Chloride [Moles/Vol] 102 mmol/L Normal 98-107 [facility] Comment on above: Performed By: #### T SH, CMP, LIPID ####[facility] [address] [place] [address]Dr. Hu Can CO2 [Moles/Vol] 28.2 mmol/L Normal 21.0-32.0 [facility] Comment on above: Performed By: #### T SH, CMP, LIPID ####[facility] [address] [place] [address]Dr. Hu Can Creatinine [Mass/Vol] 0.91 mg/dL Normal 0.55-1.02 [facility] Comment on above: Performed By: #### T SH, CMP, LIPID ####[facility] [address] [place] [address]Dr. Hu Can EGFR-AF SYRIAN >60 Normal >=60 [facility] Comment on above: Performed By: #### T SH, CMP, LIPID ####[facility] [address] [place] [id number]. Hu Can EGFR-NON AF SYRIAN >60 Normal >=60 [facility] Comment on above: Performed By: #### T SH, CMP, LIPID ####[facility] [address] [place] [id number]. Hu Can Globulin (S) [Mass/Vol] 3.3 g/dL Normal [facility] Comment on above: Performed By: #### T SH, CMP, LIPID ####[facility] [address] [place] [address]Dr. Hu Can Glucose [Mass/Vol] 105 mg/dL Normal 74-106 [facility] Comment on above: Performed By: #### T SH, CMP, LIPID ####[facility] [address] [place] [address]Dr. Hu Can Potassium [Moles/Vol] 4.2 mmol/L Normal 3.5-5.1 [facility] Comment on above: Performed By: #### T SH, CMP, LIPID ####[facility] [address] [place] [address]Dr. Hu Can Protein [Mass/Vol] 7.1 g/dL Normal 6.4-8.2 [facility] Comment on above: Performed By: #### T SH, CMP, LIPID ####[facility] [address] [place] [address]Dr. Hu Can Sodium [Moles/Vol] 137 mmol/L Normal 136-145 [facility] Comment on above: Performed By: #### T SH, CMP, LIPID ####[facility] [address] [place] [address]Dr. Hu Can Urea nitrogen [Mass/Vol] 23.0 mg/dL Critically high 7.0-18.0 [facility] Comment on above: Performed By: #### T SH, CMP, LIPID ####[facility] [address] [place] [address]Dr. Hu Can Urea nitrogen/Creatinin e [Mass ratio] 25.3 mg/mg Normal [facility] Comment on above: Performed By: #### T SH, CMP, LIPID ####[facility] [address] [place], [place] [address]Iy. Hu Can TSHon 12-13-2021 TSH 1.249 uIU/mL Normal 0.358-3.740 [facility] Comment on above: Performed By: #### T SH, CMP, LIPID ####[facility] [address] [place], [place] [address]Rj. Hu Can XR CSPINE MIN 4 VIEWSon [...] AL CAMPOS Date: 2021-12-07 19:38 Normal [facility] MG MAMM SCREEN 3D HIEU CADon 10-28-2021 MG MAMM SCREEN 3D HIEU CAD Patient: THERESA REYES Exam Date: 10/28/2021 : 1970 Gender:F Ordering : DR GABBY DEE . Admission #: [id number] Family : Order #: [id number] CLICK HERE TO VIEW EXAM RADIOLOGY REPORT [...] ovarian cancer at age 80. LOCATION: [facility] BREAST COMPOSITION: Scattered areas fibroglandular density. [...] M.D. on 10/28/2021 at 12:02 Normal [facility] Covid-19 PCR (CVDTB)on 09-15 SARS-CoV-2 (COVID-19) RNA CLARISSA+probe Ql (Unsp spec) Not detected Normal NOT DETECTED [facility] Comment on above: Result Comment: When [...] for this test is supported by the [place] of Health and Human Service's declaration that [...] longer be used). Performed By: #### [facility] #### [facility] [address] [place] [address] Dr. Hu Can Covid-19 PCR (CVDTB)on 09-14 SARS-CoV-2 (COVID-19) RNA CLARISSA+probe Ql (Unsp spec) Detected Critically abnormal NOT DETECTED [facility] Comment on above: Result Comment: This test is not yet approved or cleared by the [place] FDA. When there are no FDA-approved or cleared tests available, and other criteria are met, FDA can make tests available under an emergency access mechanism called an Emergency Use Authorization (EUA). The EUA for this test is supported by the [place] of Health and Human Service's declaration that [...] be used). Performed By: #### C [facility] ####[facility] [address] [place], [place] [address]Hf. Hu Can Pathology Noteon 07-12-2021 Pathology Note [id number] D:127 Normal [facility] Vital Signs Date Time Vital Sign Value Performing Clinician Facility 09-02-2022 09:30-0400 Body height 170.18 cm Lang Ma Other [facility] Other 09-02-2022 09:30-0400 Body mass index (BMI) [Ratio] 30.85 kg/m2 Lang Ma Other [facility] Other 09-02-2022 09:30-0400 Body weight 89.36 kg Diamond [employer] Other [facility] Other 04-08-2022 15:14-0500 Blood Pressure Location Morris CAGLE [facility] 04-08-2022 15:14-0500 Diastolic blood pressure 88 mm[Hg] Morris CAGLE [facility] 04-08-2022 15:14-0500 Heart rate 72 /min Morris CAGLE [facility] 04-08-2022 15:14-0500 Respiratory rate 16 /min Morris CAGLE [facility] 04-08-2022 15:14-0500 Systolic blood pressure 128 mm[Hg] Morris CAGLE General Surgery Diamond Encounters Encounter Date Encounter Type Care Provider Facility Start: 01-02-2023 End: 01-02-2023 ambulatory Diamond Case Other [facility] Other Start: 01-02-2023 Office outpatient vi sit 15 minutes Diamond Calvey [facility] Start: 09-23-2022 End: 09-23-2022 ambulatory Diamondgiorgi Case Other [facility] Other Start: 09-23-2022 Office outpatient vi sit 15 minutes Diamond Calvey [facility] Start: 09-02-2022 End: 09-02-2022 ambulatory Diamondgiorgi Case Other [facility] Other Start: 09-02-2022 Office outpatient vi sit 15 minutes Diamond Calvey [facility] Start: 07-08-2022 End: 07-08-2022 ambulatory Diamond Calvey Other [facility] Other Start: 07-08-2022 Office outpatient vi sit 15 minutes Diamond Calvey [facility] Start: 06-03-2022 Office outpatient vi sit 15 minutes Diamond Calvey [facility] Start: 06-03-2022 End: 06-03-2022 ambulatory Diamond Case Facility:[facility] Start: 06-03-2022 End: 06-03-2022 ambulatory MD Diamond Case Work Phone: [facility] Work Phone: Start: 06-03-2022 End: 06-03-2022 Patient encounter procedure MD Diamond Case Work Phone: [facility] Start: 05-16-2022 End: 05-17-[address] GABBY DEE . Facility: Start: 05-14-2022 End: 05-22-[address] GABBY DEE . Facility:[facility] Start: 05-07-2022 End: 05-08-2022 ambulatory Morris CAGLE Facility:CD:[id number] Start: 05-06-2022 End: 05-06-2022 ambulatory Diamond Case Other [facility] Other Start: 05-06-2022 Office outpatient ne w 30 minutes Diamond Case [facility] Start: 04-08-2022 End: 04-09-2022 ambulatory [...] abnormal findings DR GABBY DEE . [facility] Start: 12-13-2021 End: 12-14-[address] [...] vaccine, unspecified formulation Morris CAGLE [facility] [place] 04-30-2020 SARS-CoV-2 (COVID-19 ) Ad26 vaccine, recombinant Morris NILL [facility] [place] 04-02-2020 SARS-CoV-2 (COVID-19 ) Ad26 vaccine, recombinant Morris NILL [facility] [place] Payers Date Payer Category Payer Self-pay 2022 Unknown [id number] 2019 Unknown [id number] 1970 Unknown [id number] 1970 Unknown [id number] 1970 Unknown [id number] 2.16.84 0.1.184263.3.579.2.593 1970 Unknown [id number] 2.16.84 0.1.739802.3.579.2.593 1970 Unknown [id number] 2.16.84 0.1.252320.3.579.2.593 1970 Unknown [id number] 2.16.84 0.1.011546.3.579.2.593 1970 Unknown [id number] 2.16.84 0.1.583097.3.579.2.593 1970 Unknown [id number] 2.16.84 0.1.476573.3.579.2.593 1970 Unknown [id number] 2.16.84 0.1.301374.3.579.2.593 1970 Unknown [id number] 2.16.84 0.1.160338.3.579.2.593 1970 Unknown [id number] 2.16.84 0.1.081011.3.579.2.593 1970 Unknown [id number] 2.16.84 0.1.560369.3.579.2.593 1970 Unknown [id number] 2.16.84 0.1.939058.3.579.2.593 1959 Self-pay [id number] Unknown [id number] 2.16.8 40.1.466034.3.579.2.531 Social History Date Type Detail Facility Start: 04-08-2022 Tobacco smoking status Never s moked tobacco (finding) [facility] Tobacco smoking status Never [facility] Sex Assigned At Female [facility] Start: 1970 Sex Assigned At Female [facility] Functional Status Date Assessment Result Facility [...] well as cortisone injection and surgical release. [facility] Other 07-11-2023 Evaluation note* Encounter Date Diagnosis [...] Left hand pain (ICD- 10 - M79.642) [facility] Other 06-20-2023 Evaluation note* Encounter Date Diagnosis [...] joint of left hand (ICD-10 - M18.12) [facility] Other 2023 Evaluation note* Encounter Date Diagnosis [...] joint of left hand (ICD-10 - M18.12) [facility] Other 03-21-2023 Evaluation note* Encounter Date Diagnosis [...] and tingle for hours after this injection. [facility] Other 03-04-2023 NotePROCEDURE: XR FOOT RT MIN [...] Electronically authenticated by: AL CAMPOS Date: 2022-05-17 12:06[facility]02-22-2023 NoteOPERATIVE NOTE OPERATION DATE: 05/07/2022 PREOPERATIVE DIAGNOSIS: [...] in good condition. CC: Gabby Dee M.D.[id number] NoteOPERATIVE NOTE OPERATION DATE: 05/07/2022 ADDENDUM: The distal rectal 4 mm irregular flat polyp was removed with hot snare with good hemostasis, not with cold biopsy forceps.[facility] 05-06-2022 Evaluation note* Encounter Date Diagnosis [...] Apr, Right hand pain (ICD-10 - M79.641) [facility] Other 09-24-2022 NotePROCEDURE: XR SHOULDER LT 2V or > COMPARISON: None. HISTORY: Impingement syndrome of shoulder region FINDINGS: BONES:No fracture, acute abnormality, or significant arthropathy. SOFT TISSUES:Negative. No visible soft tissue swelling. EFFUSION:None visible. OTHER: Negative. IMPRESSION: No acute disease. Electronically authenticated by: AL CAMPOS Date: 2021-12-07 19:36[facility] No data available for this section [facility] Evaluation noteNo assessment information available [facility] Work Phone: History general Narrative - Reported* Type Description Date Medical History high cholesterol Surgical History Foot Surgery Surgical History clogged tear duct [facility] Other Hospital Discharge instructions No data available for this section [facility] note No data available for this section [facility] [place] Summary Purpose Family History No Family History [...] section and content) DATE CREATED AUTHOR 05/16/2022 [place] [employer] [facility] DATE CREATED AUTHOR AUTHOR'S ORGANIZ ATION 06/18/2022 [facility] DATE CREATED AUTHOR AUTHOR'S ORGANIZ ATION 06/21/2022 [facility] REASON FOR VISIT (unrecogniz ed [...] BE BASED ON THE PRIMARY CLINICAL RECORDS. [employer] provides no warranty or guarantee of the accuracy or completeness of information in this document.
== END 2023-12-04 08:41 | disposition home or self-care (01) ==
LOC: EC 08:40
PROVIDERS: PCP Family Medicine; Visit Provider Orthopaedic Surgery Orthopaedic Surgery of the Spine
DX: M54.2 Cervicalgia (principal); M43.22 Fusion of spine, cervical region
CPT/HCPCS: 72040

== ENCOUNTER 2023-12-29 19:23 | Outpatient (REF) | payer BC, SELFPAY ==
--- OUTSIDE RECORDS SUMMARY | 2023-12-29 19:27 | XMS_ITS | CCD ---
Author Organization [facility] Care Team Providers Care Gambling Monitor Name Role Phone Gabby Dee Primary Care [...] Unavailable HOY ., DR PIERRE Admitting Unavailable [place], DR AL Shaikh Consulting Unavailable HOY ., [...] Unavailable HOY ., DR PIERRE Consulting Unavailable [place], DR AL Shaikh Consulting Unavailable HOY ., DR PIERRE Admitting Unavailable HOY ., DR PIERRE Attending Unavailable HOY ., DR PIERRE Primary Care Unavailable Allergies Allergy Classification Reported Allergen(s) Allergy Type Date of Onset Reaction(s) Facility (1 source) No Known Medication Allergies; Translations: [No Known Medication Allergies] Propensity to adverse reactions (disorder) [facility] Repository (2 sources) Baclofen Drug Allergy [facility] Repository Medications Current Medications Medication [...] 3V*on 023 XR hand LT min 3V* [facility] Main [address] [address] XRay Report Signed Patient: Theresa Reyes MR#: [id number] : 1970 Acct:[id number] Age/Sex: 52 / F ADM Date: 06/03/22 Loc: SOXD Room: Type: [facility] Attending Dr: Diamond Case [...] M.D.06/03/2022 1:11 PM Dictation Location: [place] [address] Transcribed By: [facility] 06/03/22 1311 Dictated By: Miguel Ramey II, MD 06/03/22 1310 Signed By: 06/03/22 1311 Normal [facility] XR hand LT min 3V* [facility] Other XR hand LT min 3V* [facility] Main [facility] Other XR hand LT min 3V* [address] [place] [address] [facility] Other XR hand LT min 3V* [place] [address] [facility] Other XR hand LT min 3V* XRay Report [employer] Other XR hand LT min 3V* Signed [employer] Other XR hand LT min 3V* Patient: Theresa Reyes MR#: [id number] [facility] Other XR hand LT min 3V* [id number] [employer] Other XR hand LT min 3V* : 1970 Acct:[id number] [employer] Other XR hand LT min 3V* Age/Sex: 52 / F ADM Date: 06/03/22 [employer] Other XR hand LT min 3V* Loc: SOXD Room: Type : [facility] [employer] Other XR hand LT min 3V* Attending Dr: Benny Case MD [employer] Other XR hand LT min 3V* Copies to: Diamond Case MD [employer] Other XR hand LT min 3V* Ordering Provider: Diamond Case MD [employer] Other XR hand LT min 3V* Date of Service: 06/03/22 [employer] Other XR hand LT min 3V* XR/XR hand LT min 3V*: PAIN [employer] Other XR hand LT min 3V* XR hand LT min 3V* 06/03/2022 8:44 AM [employer] Other XR hand LT min 3V* SIGNS AND SYMPTOMS: Left thumb/first metacarpal pain [employer] Other XR hand LT min 3V* PROTOCOL: Frontal, lateral, and oblique radiographs of the left hand: [employer] Other XR hand LT min 3V* COMPARISON: None [employer] Other XR hand LT min 3V* FINDINGS: [employer] Other XR hand LT min 3V* The bones are in anatomic alignment. There is mild degenerative change at the first carpometacarpal [employer] Other XR hand LT min 3V* junction. There is preservation of the joint spaces, otherwise. There is no fracture or dislocation. [employer] Other XR hand LT min 3V* No significant soft tissue swelling. [employer] Other XR hand LT min 3V* XR/XR hand LT min 3V* [employer] Other XR hand LT min 3V* IMPRESSION: [employer] Other XR hand LT min 3V* No acute bony injury. [employer] Other XR hand LT min 3V* Mild degenerative fa cet noted at the base of the thumb. [employer] Other XR hand LT min 3V* Impression dictated by: Miguel Ramey M.D.06/03/2022 1:11 PM [employer] Other XR hand LT min 3V* Dictation Location: [place] [address] [employer] Other XR hand LT min 3V* Transcribed By: KARRIE 06/03/22 [facility] [employer] Other XR hand LT min 3V* Dictated By: Miguel Ramey II, MD 06/03/22 [facility] [employer] Other XR hand LT min 3V* Signed By: [employer] Other XR hand LT min 3V* 06/03/[address] [place] [address] [employer] Other [employer] 05-15-2022 Reminders - From: Jessica Mims LPN To: GSN - Clinical; Sent: 05/15/2022 07:57:39 EST Show up: 04/06/2025 07:00:00 EST Subject: colonoscopy recall Due Date/Time: 05/07/2025 07:00:00 EST Reminder/Recall Patient is due for colonoscopy 05/07/2025 due to history of tubulovillous adenoma. Normal [facility] Pathology Noteon 05-09-2022 Pathology Note [id number] :127 Normal [facility] Outside Colonoscopyon 2022 Outside Colonoscopy [id number] D:127 Normal [facility] PREG HCG QUALon 05-07-2022 , QUAL Negative Normal NEGATIVE [facility] Comment on above: Performed By: #### P REG #### [facility] [address] [place] [address] [address] Hu Can Pre-Certification Formon Pre-Certification Form [id number] CD:127 Normal [facility] Consent for Procedure/Surger yon 04-10-2022 Consent for Procedure/Surgery [id number] D:127 Normal [facility] Facesheeton 04-10-2022 Facesheet [id number] D:127 Normal [facility] General Surgery Office/Clini c Noteon 04-08-2022 [...] SARS-CoV-2 (COVID-19) Ad26 vaccine 04/02/2020 Recorded Normal [facility] Comment on above: Result Comment: Elec tronically Signed By: JEFF PONCE, Morris Nelson\Date and Time Signed: 04/08/22 15:33 EST Covid-19 PCR (CVDTB)on 02-13 SARS-CoV-2 (COVID-19) RNA CLARISSA+probe Ql (Unsp spec) Not detected Normal NOT DETECTED [facility] Comment on above: Result Comment: [...] for this test is supported by the [place] of Health and Human Service's declaration that [...] used). Performed By: #### C VDTB #### [facility] [address] [place] [address] Dr. Hu Can INFLUENZA A AND B AGon 02-26 [facility] SEE BELOW Normal [facility] Comment on above: Result Comment: Nega tive for Flu A protein angiten. Infection due to Flu A cannot be ruled out. Flu A angiten in the sample may be below the detection limit of the test. Performed By: #### I NFLUAB #### [facility] [address] [place] [address] Dr. Hu [facility] SEE BELOW Normal [facility] Comment on above: Result Comment: Nega tive for Flu B protein antigen. Infection due to Flu B cannot be ruled out. Flu B antigen in the sample may be below the detection limit of the test. Performed By: #### I NFLUAB #### [facility] [address] [place] [address] Dr. Hu Can INFLUENZA A AG Negative Normal NEGATIVE SEE COMMENT [facility] Comment on above: Performed By: #### I NFLUAB #### [facility] [address] [place] [address] Dr. Hu Can INFLUENZA B AG Negative Normal NEGATIVE SEE COMMENT [facility] Comment on above: Performed By: #### I NFLUAB #### [facility] [address] [place] [address] Dr. Hu Cna INTERNAL CONTROLS Within Normal Limits Normal Wi thin Normal Limits [facility] Comment on above: Performed By: #### I NFLUAB #### [facility] [address] [place] [address] Dr. Hu Can CBC AUTO DIFFon 12-13-2021 BASO # 0.0 103/ul Normal 0.0-0.1 [facility] Comment on above: Performed By: #### C BC #### [facility] [address] [place] [address] [address] Hu Can Basophils/100 WBC (Bld) 0.3 % Normal 0.2-2.0 [facility] Comment on above: Performed By: #### C BC #### [facility] [address] [place] [address] [address] Hu Can EO # 0.1 103/ul Normal 0.0-0.7 [facility] Comment on above: Performed By: #### C BC #### [facility] [address] [place] [address] Dr. Hu aCn Eosinophils/100 WBC (Bld) 1.1 % Normal 0.9-7.0 [facility] Comment on above: Performed By: #### C BC #### [facility] [address] [place] [address] Dr. Hu Can Erythrocyte distribution width (RBC) [Ratio] 13.7 % Normal 11.0-15.0 [facility] Comment on above: Performed By: #### C BC #### [facility] [address] [place] [address] Dr. Hu Can Hematocrit (Bld) [Volume fraction] 44.6 % Normal 36.0-48.0 [facility] Comment on above: Performed By: #### C BC #### [facility] [address] [place] [address] Dr. Hu Can Hemoglobin (Bld) [Mass/Vol] 14.5 g/dL Normal 12.0-16.0 [facility] Comment on above: Performed By: #### C BC #### [facility] [address] [place] [address] Dr. Hu Can IG # 0.02 10e3/ul Normal 0.00-0.03 [facility] Comment on above: Performed By: #### C BC #### [facility] [address] [place] [address] Dr. Hu Can IG % 0.3 % Normal 0.0-0.5 [facility] Comment on above: Performed By: #### C BC #### [facility] [address] [place] [address] Dr. Hu Can LYMPH # 2.3 103/ul Normal 1.2-3.8 [facility] Comment on above: Performed By: #### C BC #### [facility] [address] [place] [address] Dr. Hu Can Lymphocytes/100 WBC (Bld) 30.5 % Normal 20.5-60.0 [facility] Comment on above: Performed By: #### C BC #### [facility] [address] [place] [address] Dr. Hu Can MANUAL DIFF REQ NO Normal [facility] Comment on above: Performed By: #### C BC #### [facility] [address] [place] [address] Dr. Hu Can MCH (RBC) [Entitic mass] 29.1 pg Normal 26.7-34.0 [facility] Comment on above: Performed By: #### C BC #### [facility] [address] [place] [address] Dr. Hu Can MCHC (RBC) [Mass/Vol] 32.5 g/dL Normal 29.9-35.2 [facility] Comment on above: Performed By: #### C BC #### [facility] [address] [place] [address] Dr. Hu Can MCV (RBC) [Entitic vol] 89.6 fL Normal 81.0-99.0 [facility] Comment on above: Performed By: #### C BC #### [facility] [address] [place] [address] Dr. Hu Can MONO # 0.5 103/ul Normal 0.3-0.8 [facility] Comment on above: Performed By: #### C BC #### [facility] [address] [place] [address] Dr. Hu Can Monocytes/100 WBC (Bld) 6.8 % Normal 1.7-12.0 [facility] Comment on above: Performed By: #### C BC #### [facility] [address] [place] [address] [address] Hu Can NEUT # 4.6 103/ul Normal 1.4-6.5 [facility] Comment on above: Performed By: #### C BC #### [facility] [address] [place] [address] [address] Hu Can Neutrophils/100 WBC (Bld) 61.0 % Normal 43.0-75.0 [facility] Comment on above: Performed By: #### C BC #### [facility] [address] [place] [address] [address] Hu Can Platelet mean volume (Bld) [Entitic vol] 9.3 fL Critically low 9.5-13.5 [facility] Comment on above: Performed By: #### C BC #### [facility] [address] [place] [address] Dr. Hu Can PLT 296 103/ul Normal 150-450 [facility] Comment on above: Performed By: #### C BC #### [facility] [address] [place] [address] Dr. Hu Can RBC 4.98 106/ul Normal 4.20-5.40 [facility] Comment on above: Performed By: #### C BC #### [facility] [address] [place] [address] Dr. Hu Can WBC 7.5 103/ul Normal 4.0-11.0 [facility] Comment on above: Performed By: #### C BC #### [facility] [address] [place] [address] Dr. Hu Can GLYCOHEMOGLOBIN A1Con 2021 ADA RECOMMENDATION SEE BELOW Normal [facility] Comment on above: Result Comment: ADA RECOMMENDED LIMIT 4.0 - 6.0 ADA THERAPEUTIC TARGET < 7.0 ACTION SUGGESTED > 7.0 Performed By: #### A 1C #### [facility] [address] [place] [address] Dr. Hu Can Glucose [Mass/Vol] 114 mg/dL Normal [facility] Comment on above: Performed By: #### A 1C #### [facility] [address] [place], [place] [address] Dr. Hu Can HbA1c (Bld) [Mass fraction] 5.6 % Normal 4.5-6.2 [facility] Comment on above: Performed By: #### A 1C #### [facility] [address] [place] [address] [address] Hu Can LIPID PROFILEon 12-13-2021 CHOL-HDL RATIO NORM SEE BELOW Normal [facility] Comment on above: Result Comment: 3.3 - 4.4 LOW RISK 4.4 - 7.1 AVERAGE RISK 7.1 - 11.0 MODERATE RISK >11.0 HIGH RISK Performed By: #### T SH, CMP, LIPID ####[facility] [address] [place] [address]Dr. Hu Can Cholesterol [Mass/Vol] 279 mg/dL Critically high <=200 [facility] Comment on above: Performed By: #### T SH, CMP, LIPID ####[facility] [address] [place] [address]Dr. Hu Can Cholesterol in HDL [Mass/Vol] 50 mg/dL Normal 40-60 [facility] Comment on above: Performed By: #### T SH, CMP, LIPID ####[facility] [address] [place] [address]Dr. Hu Can Cholesterol in LDL [Mass/Vol] 197.8 mg/dL Normal [facility] Comment on above: Performed By: #### T SH, CMP, LIPID ####[facility] [address] [place] [address]Dr. Hu Can Cholesterol.total/ Cholesterol in HDL [Mass ratio] 5.6 {ratio} Normal [facility] Comment on above: Performed By: #### T SH, CMP, LIPID ####[facility] [address] [place] [address]Dr. Hu Can HDL NORMAL > or = 60 mg/dl - LO W CARDIOVASCULAR RISK <40 mg/dl - HIGH CARDIOVASCULAR RISK Normal [facility] Comment on above: Performed By: #### T SH, CMP, LIPID ####[facility] [address] [place] [address]Dr. Hu Can LDL CALC NORMAL SEE BELOW Normal [facility] Comment on above: Result Comment: <100 mg/dl OPTIMAL 100 - 129 mg/dl NEAR OR ABOVE OPTIMAL 130 - 159 mg/dl BORDERLINE HIGH 160 - 189 mg/dl HIGH >190 mg/dl VERY HIGH Performed By: #### T SH, CMP, LIPID ####[facility] [address] [place] [address]Dr. Hu Can Triglyceride [Mass/Vol] 156 mg/dL Critically high <=150 [facility] Comment on above: Performed By: #### T SH, CMP, LIPID ####[facility] [address] [place] [address]Dr. Hu Can VLDL CALC 31.2 mg/dL Normal [facility] Comment on above: Performed By: #### T SH, CMP, LIPID ####[facility] [address] [place] [address]Dr. Hu Can PROF 14(COMP METB)on 022 Albumin [Mass/Vol] 3.8 g/dL Normal 3.4-5.0 [facility] Comment on above: Performed By: #### T SH, CMP, LIPID ####[facility] [address] [place], [place] [address]Dr. Hu Can Albumin/Globulin [Mass ratio] 1.2 {ratio} Normal [facility] Comment on above: Performed By: #### T SH, CMP, LIPID ####[facility] [address] [place] [address]Dr. Hu Can ALP [Catalytic activity/Vol] 74 U/L Normal 46-116 [facility] Comment on above: Performed By: #### T SH, CMP, LIPID ####[facility] [address] [place] [address]Dr. Hu Can ALT [Catalytic activity/Vol] 19 U/L Normal 14-59 [facility] Comment on above: Performed By: #### T SH, CMP, LIPID ####[facility] [address] [place] [address]Dr. Hu Can Anion gap [Moles/Vol] 11.0 mmol/L Normal [facility] Comment on above: Performed By: #### T ABDI, CMP, LIPID ####[facility] [address] [place] [address]Dr. Hu Can AST [Catalytic activity/Vol] 12 U/L Critically low 15-37 [facility] Comment on above: Performed By: #### T SH, CMP, LIPID ####[facility] [address] [place] [address]Dr. Hu Can Bilirubin [Mass/Vol] 0.7 mg/dL Normal 0.2-1.0 [facility] Comment on above: Performed By: #### T ABDI, CMP, LIPID ####[facility] [address] [place] [address]Dr. Hu Can Calcium [Mass/Vol] 8.7 mg/dL Normal 8.5-10.1 [facility] Comment on above: Performed By: #### T ABDI, CMP, LIPID ####[facility] [address] [place] [address]Dr. Hu Can Chloride [Moles/Vol] 102 mmol/L Normal 98-107 [facility] Comment on above: Performed By: #### T SH, CMP, LIPID ####[facility] [address] [place] [address]Dr. Hu Can CO2 [Moles/Vol] 28.2 mmol/L Normal 21.0-32.0 [facility] Comment on above: Performed By: #### T SH, CMP, LIPID ####[facility] [address] [place] [address]Dr. Hu Can Creatinine [Mass/Vol] 0.91 mg/dL Normal 0.55-1.02 [facility] Comment on above: Performed By: #### T SH, CMP, LIPID ####[facility] [address] [place] [address]Dr. Hu Can EGFR-AF BARBADIAN >60 Normal >=60 [facility] Comment on above: Performed By: #### T SH, CMP, LIPID ####[facility] [address] [place] [address]Dr. Hu Can EGFR-NON AF BARBADIAN >60 Normal >=60 [facility] Comment on above: Performed By: #### T SH, CMP, LIPID ####[facility] [address] [place] [address]Dr. Hu Can Globulin (S) [Mass/Vol] 3.3 g/dL Normal [facility] Comment on above: Performed By: #### T SH, CMP, LIPID ####[facility] [address] [place] [address]Dr. Hu Can Glucose [Mass/Vol] 105 mg/dL Normal 74-106 [facility] Comment on above: Performed By: #### T SH, CMP, LIPID ####[facility] [address] [place] [address]Dr. Hu Can Potassium [Moles/Vol] 4.2 mmol/L Normal 3.5-5.1 [facility] Comment on above: Performed By: #### T SH, CMP, LIPID ####[facility] [address] [place] [address]Dr. Hu Can Protein [Mass/Vol] 7.1 g/dL Normal 6.4-8.2 [facility] Comment on above: Performed By: #### T SH, CMP, LIPID ####[facility] [address] [place] [address]Dr. Hu Can Sodium [Moles/Vol] 137 mmol/L Normal 136-145 [facility] Comment on above: Performed By: #### T SH, CMP, LIPID ####[facility] [address] [place] [address]Dr. Hu Can Urea nitrogen [Mass/Vol] 23.0 mg/dL Critically high 7.0-18.0 [facility] Comment on above: Performed By: #### T SH, CMP, LIPID ####[facility] [address] [place] [address]Dr. Hu Can Urea nitrogen/Creatinin e [Mass ratio] 25.3 mg/mg Normal [facility] Comment on above: Performed By: #### T SH, CMP, LIPID ####[facility] [address] [place], [place] [address]Lv. Hu Can TSHon 12-13-2021 TSH 1.249 uIU/mL Normal 0.358-3.740 [facility] Comment on above: Performed By: #### T SH, CMP, LIPID ####[facility] [address] [place], [place] [address]Ij. Hu Can XR CSPINE MIN 4 VIEWSon [...] AL CAMPOS Date: 2021-12-07 19:38 Normal [facility] MG MAMM SCREEN 3D HIEU CADon 10-28-2021 MG MAMM SCREEN 3D HIEU CAD Patient: THERESA REYES Exam Date: 10/28/2021 : 1970 Gender:F Ordering : DR GABBY DEE . Admission #: [id number] Family : Order #: [id number] CLICK HERE TO VIEW EXAM RADIOLOGY REPORT [...] ovarian cancer at age 80. LOCATION: [facility] BREAST COMPOSITION: Scattered areas fibroglandular [...] M.D. on 10/28/2021 at 12:02 Normal [facility] Covid-19 PCR (CVDTB)on 09-15 SARS-CoV-2 (COVID-19) RNA CLARISSA+probe Ql (Unsp spec) Not detected Normal NOT DETECTED [facility] Comment on above: Result Comment: [...] for this test is supported by the [place] of Health and Human Service's declaration that [...] longer be used). Performed By: #### [facility] #### [facility] [address] [place] [address] Dr. Hu Can Covid-19 PCR (CVDTB)on 09-14 SARS-CoV-2 (COVID-19) RNA CLARISSA+probe Ql (Unsp spec) Detected Critically abnormal NOT DETECTED [facility] Comment on above: Result Comment: This test is not yet approved or cleared by the [place] FDA. When there are no FDA-approved or cleared tests available, and other criteria are met, FDA can make tests available under an emergency access mechanism called an Emergency Use Authorization (EUA). The EUA for this test is supported by the [place] of Health and Human Service's declaration that [...] longer be used). Performed By: #### C [facility] ####[facility] [address] [place], [place] [address]Ip. Hu Can Pathology Noteon 07-12-2021 Pathology Note [id number] D:127 Normal [facility] Vital Signs Date Time Vital Sign Value Performing Clinician Facility 09-02-2022 09:30-0400 Body height 170.18 cm [employer] Other [employer] Other 09-02-2022 09:30-0400 Body mass index (BMI) [Ratio] 30.85 kg/m2 [employer] Other [employer] Other 09-02-2022 09:30-0400 Body weight 89.36 kg Diamond [facility] Other [employer] Other 04-08-2022 15:14-0500 Blood Pressure Location Morris CAGLE [facility] 04-08-2022 15:14-0500 Diastolic blood pressure 88 mm[Hg] Morris CAGLE [facility] 04-08-2022 15:14-0500 Heart rate 72 /min Morris CAGLE [facility] 04-08-2022 15:14-0500 Respiratory rate 16 /min Morris CAGLE [facility] 04-08-2022 15:14-0500 Systolic blood pressure 128 mm[Hg] Morris CAGLE [facility] [place] Encounters Encounter Date Encounter Type Care Provider Facility Start: 01-02-2023 End: 01-02-2023 ambulatory Diamond Case Other [employer] Other Start: 01-02-2023 Office outpatient vi sit 15 minutes Diamond Calvey [facility] Start: 09-23-2022 End: 09-23-2022 ambulatory Diamondgiorgi Case Other [employer] Other Start: 09-23-2022 Office outpatient vi sit 15 minutes Diamond Calvey [facility] Start: 09-02-2022 End: 09-02-2022 ambulatory Diamondgiorgi Case Other [employer] Other Start: 09-02-2022 Office outpatient vi sit 15 minutes Diamond Calvey [facility] Start: 07-08-2022 End: 07-08-2022 ambulatory Diamond Calvey Other [employer] Other Start: 07-08-2022 Office outpatient vi sit 15 minutes Diamond Calvey [facility] Start: 06-03-2022 Office outpatient vi sit 15 minutes Diamond Calvey [facility] Start: 06-03-2022 End: 06-03-2022 ambulatory Diamond Case Facility:[facility] Start: 06-03-2022 End: 06-03-2022 ambulatory MD Diamond Case Work Phone: [facility] Work Phone: Start: 06-03-2022 End: 06-03-2022 Patient encounter procedure MD Diamond Case Work Phone: [facility] Start: 05-16-2022 End: 05-17-[address] GABBY DEE . Facility: Start: 05-14-2022 End: 05-22-[address] GABBY DEE . Facility:[facility] Start: 05-07-2022 End: 05-08-2022 ambulatory Morris CAGLE Facility:CD:[id number] Start: 05-06-2022 End: 05-06-2022 ambulatory Diamond Case Other [employer] Other Start: 05-06-2022 Office outpatient ne w 30 minutes Diamond Case [facility] Start: 04-08-2022 End: 04-09-2022 ambulatory Morris CAGLE Facility:[facility] Start: 04-08-2022 End: 04-08-2022 Patient encounter procedure Morris CAGLE [facility] Start: 03-16-[address] GABBY DEE . Facili ty:[facility] Start: 02-26-2022 End: 02-26-[address] GABBY DEE . Facility:[facility] Start: 01-01-2022 End: 01-31-[address] GABBY DEE . Facility:[facility] Start: 12-16-2021 Encounter for genera l adult medical examination without abnormal findings DR GABBY DEE . [facility] Start: 12-13-2021 End: 12-14-2021 ambulatory [...] vaccine, unspecified formulation Morris CAGLE [facility] [place] 04-30-2020 SARS-CoV-2 (COVID-19 ) Ad26 vaccine, recombinant Morris NILL [facility] [place] 04-02-2020 SARS-CoV-2 (COVID-19 ) Ad26 vaccine, recombinant Morris NILL [facility] [place] Payers Date Payer Category Payer Self-pay 2022 Unknown [id number] 2019 Unknown [id number] 1970 Unknown [id number] 2.16.8 [id number] 1970 Unknown [id number] 2.16.8 [id number] 1970 Unknown [id number] 2.16.84 0.1.171191.3.579.2.593 1970 Unknown [id number] 2.16.84 0.1.571823.3.579.2.593 1970 Unknown [id number] 2.16.84 0.1.866913.3.579.2.593 1970 Unknown [id number] 2.16.84 0.1.588900.3.579.2.593 1970 Unknown [id number] 2.16.84 0.1.078469.3.579.2.593 1970 Unknown [id number] 2.16.84 0.1.590787.3.579.2.593 1970 Unknown [id number] 2.16.84 0.1.960856.3.579.2.593 1970 Unknown [id number] 2.16.84 0.1.849526.3.579.2.593 1970 Unknown [id number] 2.16.84 0.1.524806.3.579.2.593 1970 Unknown [id number] 2.16.84 0.1.338156.3.579.2.593 1970 Unknown [id number] 2.16.84 0.1.949308.3.579.2.593 1959 Self-pay [id number] Unknown [id number] 2.16.8 40.1.972779.3.579.2.531 Social History Date Type Detail Facility Start: 04-08-2022 Tobacco smoking status Never s moked tobacco (finding) [facility] [place] Tobacco smoking status Never Gener al [facility] [place] Sex Assigned At Female [facility] Start: 1970 Sex Assigned At Female [facility] Functional Status Date Assessment Result Facility [...] well as cortisone injection and surgical release. [employer] Other 07-11-2023 Evaluation note* Encounter Date Diagnosis [...] Left hand pain (ICD- 10 - M79.642) [employer] Other 06-20-2023 Evaluation note* Encounter Date Diagnosis [...] joint of left hand (ICD-10 - M18.12) [employer] Other 2023 Evaluation note* Encounter Date Diagnosis [...] joint of left hand (ICD-10 - M18.12) [employer] Other 03-21-2023 Evaluation note* Encounter Date Diagnosis [...] and tingle for hours after this injection. [employer] Other 03-04-2023 NotePROCEDURE: XR FOOT RT MIN [...] Electronically authenticated by: AL CAMPOS Date: 2022-05-17 12:06[facility] [place]02-22-2023 NoteOPERATIVE NOTE OPERATION DATE: 05/07/2022 PREOPERATIVE DIAGNOSIS: [...] in good condition. CC: Gabby Dee M.D.[facility] [id number] NoteOPERATIVE NOTE OPERATION DATE: 05/07/2022 ADDENDUM: The distal rectal 4 mm irregular flat polyp was removed with hot snare with good hemostasis, not with cold biopsy forceps.[facility] 05-06-2022 Evaluation note* Encounter Date [...] Apr, Right hand pain (ICD-10 - M79.641) [employer] Other 09-24-2022 NotePROCEDURE: XR SHOULDER LT 2V or > COMPARISON: None. HISTORY: Impingement syndrome of shoulder region FINDINGS: BONES:No fracture, acute abnormality, or significant arthropathy. SOFT TISSUES:Negative. No visible soft tissue swelling. EFFUSION:None visible. OTHER: Negative. IMPRESSION: No acute disease. Electronically authenticated by: AL CAMPOS Date: 2021-12-07 19:36[facility] note No data available for this section [facility] [place] Evaluation noteNo assessment information available [facility] Work Phone: History general Narrative - Reported* Type Description Date Medical History high cholesterol Surgical History Foot Surgery Surgical History clogged tear duct [employer] Other Hospital Discharge instructions No data available [...] section and content) DATE CREATED AUTHOR 05/16/2022 Roosevelt Lvmae [facility] DATE CREATED AUTHOR AUTHOR'S ORGANIZ ATION 06/18/2022 [facility] DATE CREATED AUTHOR AUTHOR'S ORGANIZ ATION 06/21/2022 [facility] REASON FOR VISIT (unrecogniz ed [...] BE BASED ON THE PRIMARY CLINICAL RECORDS. [employer] provides no warranty or guarantee of the accuracy or completeness of information in this document.
[2024-01-04 16:10] LABS: Age Gdln ACOG Testing Note (.); HPV Aptima Negative (Negative); IGP, Aptima HPV, rfx 16/18,45 Note (.)
== END 2023-12-29 19:24 | disposition home or self-care (01) ==
LOC: LAB 19:23
PROVIDERS: PCP Family Medicine; Visit Provider Obstetrics & Gynecology
DX: Z01.419 Encounter for gynecological examination (general) (routine) without abnormal findings (principal)
CPT/HCPCS: 88175

== ENCOUNTER 2024-01-25 09:58 | Outpatient (OUT) | payer BC, SELFPAY ==
--- NOTE | 2024-01-25 | XR_ITS ---
The [address] [address] Patient Name: THERESA JOSHUA MRN: [id number] date: 1970 Sex: F Assigned Patient Location: [facility] Current Patient Location: Accession/Order Number: [id number] Exam Date: 01/25/2024 10:03 Report Date: 01/27/2024 14:16 At the request of: DRU ANDERSON Procedure: XR DEXA axial skeleton EXAMINATION: XR DEXA axial skeleton, 01/25/2024 10:03 AM EST HISTORY: POSTMENOPAUSAL STATE COMPARISON: None. TECHNIQUE: Dual-energy X-ray absorptiometry (DEXA) bone density study performed for the axial skeleton. FINDINGS: Bone mineral density lumbar spine L1-L4 measures 1.242 g/sq cm for T score 0.5. Normal Lowest bone mineral density right femoral neck measures 0.798 g percent meters squared. T score -1.7. Osteopenia XR/XR DEXA axial skeleton IMPRESSION: Osteopenia. Moderate fracture risk Pharmacologic treatment recommendations * No uniform recommendation applies to all patients. Management plans must be individualized. * Consider initiating pharmacologic treatment in postmenopausal women and men >= 50 years of age who have the following: Primary fracture prevention: * T-score <= - 2.5 at the femoral neck, total hip, lumbar spine, 33% radius (some uncertainty with existing data) by DXA. * Low bone mass (osteopenia: T-score between - 1.0 and - 2.5) at the femoral neck or total hip by DXA with a 10-year hip fracture risk >= 3% or a 10-year major osteoporosis-related fracture risk >= 20% (i.e., clinical vertebral, hip, forearm, or proximal humerus) based on the [place]-adapted FRAXregistered model. Secondary fracture prevention: * Fracture of the hip or vertebra regardless of BMD [4, 5]. * Fracture of proximal humerus, pelvis, or distal forearm in persons with low bone mass (osteopenia: T-score between - 1.0 and - 2.5). The decision to treat should be individualized in persons with a fracture of the proximal humerus, pelvis, or distal forearm who do not have osteopenia or low BMD [12, 13]. Tami TIJERINA, Agnes BOLDEN, Smooth TURPIN, Dwayne EM, Eugenie KG, AJ, Christoph ES. The clinician's guide to prevention and treatment of osteoporosis. Osteoporos Int. 2021;33(10):5318-2351. doi: 10.1007/z72359-371-67694-r. Epub 2021Jul 11. Erratum in: Osteoporos Int. 2021Oct 10;: PMID: [id number]; PMCID: [id number]. Electronically authenticated by: AL CAMPOS Date: 01/27/2024 14:16
--- OUTSIDE RECORDS SUMMARY | 2024-01-25 10:13 | XMS_ITS | CCD ---
Author Organization [facility] Care Team Providers Care Money Order Clerk Name Role Phone Gabby Dee Primary Care Physician Morris CAGLE Attending Unavailable Morris CAGLE Attending Unavailable Diamond Case Unavailable MD Diamond [...] Primary Care Unavailable LEEANNE BRADLEY Admitting Unavailable LEEANNE BRADLEY Admitting Unavailable LEEANNE BRADLEY Consulting Unavailable LEEANNE BRADLEY Attending Unavailable KINGA ., DR GONSALES Primary Care Unavailable HOY ., DR PIERRE Attending Unavailable HOY ., DR PIERRE Primary Care Unavailable HOY ., DR PIERRE Consulting Unavailable HOY ., DR PIERRE Admitting Unavailable ESMONT, DR AL Shaikh Consulting Unavailable HOY ., [...] Unavailable HOY ., DR PIERRE Consulting Unavailable ESMONT, DR AL Shaikh Consulting Unavailable HOY ., DR PIERRE Admitting Unavailable HOY ., DR PIERRE Attending Unavailable HOY ., DR PIERRE Primary Care Unavailable Gabby Dee MD Primary Care Provider [phone] DRU DONATO Attending Unavailable Allergies Allergy Classification Reported Allergen(s) Allergy Type Date of Onset Reaction(s) Facility (1 source) No Known Medication Allergies; Translations: [No Known Medication Allergies] Propensity to adverse reactions (disorder) [facility] Repository (2 sources) Baclofen Drug Allergy [facility] Repository Medications Current Medications Medication Drug Class(es) Dates Sig (Normalized) Sig (Original) 24 hr desvenlafaxine succinate 25 mg extended release oral tablet (4 sources) Serotonin and Norepinephrine Reuptake Inhibitor Start: 02-21-2021 take 1 tablet by mouth once daily desvenlafaxine 25 mg oral tablet, extended release 25 mg = 1 tab(s), Oral, Daily, Refills(s) 0 Start Date: 02/21/21 Status: Ordered End: 12-29-2023 take 1 tablet by mouth every twenty-four hours in the morning desvenlafaxine (Pristiq) 50 MG 24 hr tablet Take 50 mg by mouth in the morning. Do not crush, chew, or split. . 12/29/2023 Discontinued simvastatin 20 mg oral tablet (10 sources) HMG-CoA Reductase Inhibitor Start: 04-08-2022 End: 12-29-2023 take 1 tablet by mouth once daily at bedtime simvastatin 20 mg Tab 20 mg = 1 tab(s), Oral, Once a day (at bedtime), Refills(s) 0 Start Date: 04/08/22 Status: Ordered Completed/Discontinued Medications Medication Drug Class(es) Dates Sig (Normalized) Sig (Original) diclofenac sodium 75 mg delayed release oral tablet (9 sources) Nonsteroidal Anti-inflammatory Drug Start: 11-12-2022 End: 12-29-2023 take 1 tablet by mouth in the morning diclofenac (Voltaren) 75 MG EC tablet Take 75 mg by mouth in the morning and 75 mg before bedtime. 11/12/2022 12/29/2023 Discontinued triamcinolone acetonide 40 mg/ml injectable suspension (20 [...] (1 source) Seasonal allergic rhinitis 02-21-2021 Chronic Residual codes; unclassified (2 sources) Postmenopausal state; Translations: [Asymptomatic menopausal state] 12-29-2023 Episodic Spondylosis; intervertebral disc disorders; other back problems [...] Test Name Value Interpretation Reference Range Facility IGP,APTIMA HPV,AGE GDLNon AGE GDLN ACOG TESTING Note . [facility] Comment on above: TESTS RESULT FLAG UN ITS REF RANGE LAB Clinician Provided Cytology Information Source.............Cervix;Endocervix No. of containers..01 ThinPrep Vial Age Algo ACOG Sheila... FLAG LEGEND: L-Low Normal,H-High Normal,LL-Alert Low,HH-Alert High <-Panic Low,>-Panic High,A-Abnormal,AA-Critical Abnormal Performed at: 01 =G [facility] [place] [address] Sharmaine Hall MD, HPV APTIMA Negative Negative [facility] Comment on above: This nucleic acid am plification test detects fourteen high- risk HPV types (16,18,31,33,35,39,45,51,52,56,58,59,66,68) without differentiation. Performed at: =G - [facility] [place] [id number] Construction Driller: Sharmaine Hall MD, Phone: [phone] Performed at: - [facility] [id number] Construction Driller: Sharmaine Hall MD, Phone: [phone] IGP, APTIMA HPV, RFX 16/18,45 Note . [facility] Comment on above: TESTS RESULT FLAG UN ITS REF RANGE LAB DIAGNOSIS: 02 NEGATIVE FOR INTRAEPITHELIAL LESION OR MALIGNANCY. Specimen adequacy: 02 Satisfactory for evaluation. Endocervical and/or squamous metaplastic cells (endocervical component) are present. Performed by: 02 Elsa Luis, Burning Supervisor ([facility]) . 02 Note: Note 02 The Pap smear is a screening test designed to aid in the detection of premalignant and malignant conditions of the uterine cervix. It is not a diagnostic procedure and should not be used as the sole means of detecting cervical cancer. Both false-positive and false-negative reports do occur. Test Methodology: Note 02 This liquid based ThinPrep(R) pap test was screened with the use of an image guided system. HPV Genotype Reflex Note 02 Criteria not met, HPV Genotype not performed. FLAG LEGEND: L-Low Normal,H-High Normal,LL-Alert Low,HH-Alert High <-Panic Low,>-Panic High,A-Abnormal,AA-Critical Abnormal Performed at: [address] [place] [address] Sharmaine Hall MD, BRUSH-SPATULA CERVIX ENDOCERVIX [facility] XR hand LT min 3V*on 023 XR hand LT min 3V* [address] [address] XRay Report Signed Patient: Theresa Reyes MR#: [id number] : 1970 Acct:[id number] Age/Sex: 52 / F ADM Date: 06/03/22 [place] [facility] [place]: Type: [facility] Attending Dr: Diamond Case MD Copies [...] Miguel Ramey M.D.06/03/2022 1:11 PM Dictation Location: [place] [address] Transcribed By: [facility] 06/03/22 1311 Dictated By: Miguel Ramey II, MD 06/03/22 1310 Signed By: 06/03/22 1311 Normal [facility] XR hand LT min 3V* [facility] [employer] Other XR hand LT min 3V* [facility] [employer] Other XR hand LT min 3V* [facility] [employer] Other XR hand LT min 3V* [place] [address] [employer] Other XR hand LT min 3V* XRay Report [facility] Other XR hand LT min 3V* Signed [facility] Other XR hand LT min 3V* Patient: Theresa Reyes MR#: [id number] [facility] Other XR hand LT min 3V* [address] [facility] Other XR hand LT min 3V* : 1970 Acct:[id number] [facility] Other XR hand LT min 3V* Age/Sex: 52 / F ADM Date: 06/03/22 [facility] Other XR hand LT min 3V* [place]: [facility] Room: Type : [facility] [employer] Other XR hand LT min 3V* Attending Dr: Benny Case MD [facility] Other XR hand LT min 3V* Copies to: Diamond Case MD [facility] Other XR hand LT min 3V* Ordering Provider: Diamond Case MD [employer] Other XR hand LT min 3V* Date of Service: 06/03/22 [employer] Other XR hand LT min 3V* XR/XR hand LT min 3V*: PAIN [employer] Other XR hand LT min 3V* XR hand LT min 3V* 06/03/2022 8:44 AM [employer] Other XR hand LT min 3V* SIGNS AND SYMPTOMS: Left thumb/first metacarpal pain [employer] Other XR hand LT min 3V* PROTOCOL: Frontal, lateral, and oblique radiographs of the left hand: [employer] Other XR hand LT min 3V* COMPARISON: None [employer] Other XR hand LT min 3V* FINDINGS: [employer] Other XR hand LT min 3V* The bones are in anatomic alignment. There is mild degenerative change at the first carpometacarpal [employer] Other XR hand LT min 3V* junction. There is preservation of the joint spaces, otherwise. There is no fracture or dislocation. [employer] Other XR hand LT min 3V* No significant soft tissue swelling. [employer] Other XR hand LT min 3V* XR/XR hand LT min 3V* [employer] Other XR hand LT min 3V* IMPRESSION: [employer] Other XR hand LT min 3V* No acute bony injury. [employer] Other XR hand LT min 3V* Mild degenerative fa cet noted at the base of the thumb. [employer] Other XR hand LT min 3V* Impression dictated by: Miguel Ramey M.D.06/03/2022 1:11 PM [employer] Other XR hand LT min 3V* Dictation Location: [place] [address] [employer] Other XR hand LT min 3V* Transcribed By: KARRIE 06/03/22 [facility] [employer] Other XR hand LT min 3V* Dictated By: Miguel Ramey II, MD 06/03/22 [facility] [employer] Other XR hand LT min 3V* Signed By: [employer] Other XR hand LT min 3V* 06/03/[address] [place] [address] [employer] Other [employer] 05-15-2022 Reminders - From: Jessica Mims LPN To: GSN - Clinical; Sent: 05/15/2022 07:57:39 EST Show up: 04/06/2025 07:00:00 EST Subject: colonoscopy recall Due Date/Time: 05/07/2025 07:00:00 EST Reminder/Recall Patient is due for colonoscopy 05/07/2025 due to history of tubulovillous adenoma. Normal [facility] Pathology Noteon 05-09-2022 Pathology Note [id number] :127 Normal [facility] Outside Colonoscopyon 2022 Outside Colonoscopy [id number] D:127 Normal [facility] PREG HCG QUALon 05-07-2022 , QUAL Negative Normal NEGATIVE [facility] Comment on above: Performed By: #### P REG #### [facility] [address] [place] [address] Dr. Hu Can Pre-Certification Formon Pre-Certification Form [id number] CD:127 Normal [facility] Consent for Procedure/Surger yon 04-10-2022 Consent for Procedure/Surgery [id number] D:127 Normal [facility] Facesheeton 04-10-2022 Facesheet [id number] D:127 Normal [facility] General Surgery Office/Clini c Noteon 04-08-2022 [...] SARS-CoV-2 (COVID-19) Ad26 vaccine 04/02/2020 Recorded Normal [facility] Comment on above: Result Comment: Elec tronically Signed By: JEFF PONCE, Morris Nelson\Date and Time Signed: 04/08/22 15:33 EST Covid-19 PCR (CVDTB)on 02-13 SARS-CoV-2 (COVID-19) RNA CLARISSA+probe Ql (Unsp spec) Not detected Normal NOT DETECTED [facility] Comment on above: Result Comment: [...] for this test is supported by the [place] of Health and Human Service's declaration that [...] used). Performed By: #### C VDTB #### [facility] [address] [place] [address] Dr. Hu Can INFLUENZA A AND B AGon 02-26 [facility] SEE BELOW Normal [facility] Comment on above: Result Comment: Nega tive for Flu A protein angiten. Infection due to Flu A cannot be ruled out. Flu A angiten in the sample may be below the detection limit of the test. Performed By: #### I NFLUAB #### [facility] [address] [place] [address] Dr. [facility] Normal [facility] Comment on above: Result Comment: Nega tive for Flu B protein antigen. Infection due to Flu B cannot be ruled out. Flu B antigen in the sample may be below the detection limit of the test. Performed By: #### I NFLUAB #### [facility] [address] [place] [address] Dr. Hu Can INFLUENZA A AG Negative Normal NEGATIVE SEE COMMENT [facility] Comment on above: Performed By: #### I NFLUAB #### [facility] [address] [place] [address] Dr. Hu Can INFLUENZA B AG Negative Normal NEGATIVE SEE COMMENT [facility] Comment on above: Performed By: #### I NFLUAB #### [facility] [address] [place] [address] Dr. Hu Can INTERNAL CONTROLS Within Normal Limits Normal Wi thin Normal Limits [facility] Comment on above: Performed By: #### I NFLUAB #### [facility] [address] [place] [address] [address] Hu Can CBC AUTO DIFFon 12-13-2021 BASO # 0.0 103/ul Normal 0.0-0.1 [facility] Comment on above: Performed By: #### C BC #### [facility] [address] [place] [address] Dr. Hu Can Basophils/100 WBC (Bld) 0.3 % Normal 0.2-2.0 [facility] Comment on above: Performed By: #### C BC #### [facility] [address] [place] [address] Dr. Hu Can EO # 0.1 103/ul Normal 0.0-0.7 [facility] Comment on above: Performed By: #### C BC #### [facility] [address] [place] [address] Dr. Hu Can Eosinophils/100 WBC (Bld) 1.1 % Normal 0.9-7.0 [facility] Comment on above: Performed By: #### C BC #### [facility] [address] [place] [address] Dr. Hu Can Erythrocyte distribution width (RBC) [Ratio] 13.7 % Normal 11.0-15.0 [facility] Comment on above: Performed By: #### C BC #### [facility] [address] [place] [address] Dr. Hu Can Hematocrit (Bld) [Volume fraction] 44.6 % Normal 36.0-48.0 [facility] Comment on above: Performed By: #### C BC #### [facility] [address] [place] [address] Dr. Hu Can Hemoglobin (Bld) [Mass/Vol] 14.5 g/dL Normal 12.0-16.0 [facility] Comment on above: Performed By: #### C BC #### [facility] [address] [place] [address] Dr. Hu Can IG # 0.02 10e3/ul Normal 0.00-0.03 [facility] Comment on above: Performed By: #### C BC #### [facility] [address] [place] [address] Dr. Hu Can IG % 0.3 % Normal 0.0-0.5 [facility] Comment on above: Performed By: #### C BC #### [facility] [address] [place] [address] Dr. Hu Can LYMPH # 2.3 103/ul Normal 1.2-3.8 [facility] Comment on above: Performed By: #### C BC #### [facility] [address] [place] [address] Dr. Hu Can Lymphocytes/100 WBC (Bld) 30.5 % Normal 20.5-60.0 [facility] Comment on above: Performed By: #### C BC #### [facility] [address] [place] [address] Dr. Hu Can MANUAL DIFF REQ NO Normal [facility] Comment on above: Performed By: #### C BC #### [facility] [address] [place] [address] Dr. Hu Can MCH (RBC) [Entitic mass] 29.1 pg Normal 26.7-34.0 [facility] Comment on above: Performed By: #### C BC #### [facility] [address] [place] [address] Dr. Hu Can MCHC (RBC) [Mass/Vol] 32.5 g/dL Normal 29.9-35.2 [facility] Comment on above: Performed By: #### C BC #### [facility] [address] [place] [address] Dr. Hu Can MCV (RBC) [Entitic vol] 89.6 fL Normal 81.0-99.0 [facility] Comment on above: Performed By: #### C BC #### [facility] [address] [place] [address] [address] Hu Can MONO # 0.5 103/ul Normal 0.3-0.8 [facility] Comment on above: Performed By: #### C BC #### [facility] [address] [place] [address] [address] Hu Can Monocytes/100 WBC (Bld) 6.8 % Normal 1.7-12.0 [facility] Comment on above: Performed By: #### C BC #### [facility] [address] [place] [address] Dr. Hu Can NEUT # 4.6 103/ul Normal 1.4-6.5 [facility] Comment on above: Performed By: #### C BC #### [facility] [address] [place] [address] Dr. Hu Can Neutrophils/100 WBC (Bld) 61.0 % Normal 43.0-75.0 [facility] Comment on above: Performed By: #### C BC #### [facility] [address] [place] [address] Dr. Hu Can Platelet mean volume (Bld) [Entitic vol] 9.3 fL Critically low 9.5-13.5 [facility] Comment on above: Performed By: #### C BC #### [facility] [address] [place] [address] Dr. Hu Can PLT 296 103/ul Normal 150-[address] [facility] Comment on above: Performed By: #### C BC #### [facility] [address] [place] [address] Dr. Hu Can RBC 4.98 106/ul Normal 4.20-5.[address] [facility] Comment on above: Performed By: #### C BC #### [facility] [address] [place] [address] Dr. Hu Can WBC 7.5 103/ul Normal 4.0-11.[address] [facility] Comment on above: Performed By: #### C BC #### [facility] [address] [place] [address] [address] Hu Can GLYCOHEMOGLOBIN A1Con 2021 ADA RECOMMENDATION SEE BELOW Normal [facility] Comment on above: Result Comment: ADA RECOMMENDED LIMIT 4.0 - 6.0 ADA THERAPEUTIC TARGET < 7.0 ACTION SUGGESTED > 7.0 Performed By: #### A 1C #### [facility] [address] [place] [address] [address] Hu Can Glucose [Mass/Vol] 114 mg/dL Normal [facility] Comment on above: Performed By: #### A 1C #### [facility] [address] [place] [address] [address] Hu Can HbA1c (Bld) [Mass fraction] 5.6 % Normal 4.5-6.2 [facility] Comment on above: Performed By: #### A 1C #### [facility] [address] [place] [address] [address] Hu Can LIPID PROFILEon 12-13-2021 CHOL-HDL RATIO NORM SEE BELOW Normal [facility] Comment on above: Result Comment: 3.3 - 4.4 LOW RISK 4.4 - 7.1 AVERAGE RISK 7.1 - 11.0 MODERATE RISK >11.0 HIGH RISK Performed By: #### T SH, CMP, LIPID ####[facility] [address] [place] [address]DrAusten Can Cholesterol [Mass/Vol] 279 mg/dL Critically high <=200 [facility] Comment on above: Performed By: #### T SH, CMP, LIPID ####[facility] [address] [place] [id number]. Hu Can Cholesterol in HDL [Mass/Vol] 50 mg/dL Normal 40-60 [facility] Comment on above: Performed By: #### T SH, CMP, LIPID ####[facility] [address] [place] [id number]. Hu Can Cholesterol in LDL [Mass/Vol] 197.8 mg/dL Normal [facility] Comment on above: Performed By: #### T SH, CMP, LIPID ####[facility] [address] [place] [id number]. Hu Can Cholesterol.total/ Cholesterol in HDL [Mass ratio] 5.6 {ratio} Normal [facility] Comment on above: Performed By: #### T SH, CMP, LIPID ####[facility] [address] [place] [address]Dr. Hu Can HDL NORMAL > or = 60 mg/dl - LO W CARDIOVASCULAR RISK <40 mg/dl - HIGH CARDIOVASCULAR RISK Normal [facility] Comment on above: Performed By: #### T SH, CMP, LIPID ####[facility] [address] [place] [address]Dr. Hu Can LDL CALC NORMAL SEE BELOW Normal [facility] Comment on above: Result Comment: <100 mg/dl OPTIMAL 100 - 129 mg/dl NEAR OR ABOVE OPTIMAL 130 - 159 mg/dl BORDERLINE HIGH 160 - 189 mg/dl HIGH >190 mg/dl VERY HIGH Performed By: #### T ABDI, CMP, LIPID ####[facility] [address] [place] [address]Dr. Hu Can Triglyceride [Mass/Vol] 156 mg/dL Critically high <=[address] [facility] Comment on above: Performed By: #### T SH, CMP, LIPID ####[facility] [address] [place], [place] [address]Dr. Hu Can VLDL CALC 31.2 mg/dL Normal [facility] Comment on above: Performed By: #### T SH, CMP, LIPID ####[facility] [address] [place] [address]Dr. Hu Can PROF 14(COMP METB)on 022 Albumin [Mass/Vol] 3.8 g/dL Normal 3.4-5.0 [facility] Comment on above: Performed By: #### T SH, CMP, LIPID ####[facility] [address] [place] [address]Dr. Hu Can Albumin/Globulin [Mass ratio] 1.2 {ratio} Normal [facility] Comment on above: Performed By: #### T SH, CMP, LIPID ####[facility] [address] [place] [address]Dr. Hu Can ALP [Catalytic activity/Vol] 74 U/L Normal 46-116 [facility] Comment on above: Performed By: #### T ABDI, CMP, LIPID ####[facility] [address] [place] [address]Dr. Hu Can ALT [Catalytic activity/Vol] 19 U/L Normal 14-59 [facility] Comment on above: Performed By: #### T ABDI, CMP, LIPID ####[facility] [address] [place] [address]Dr. Hu Can Anion gap [Moles/Vol] 11.0 mmol/L Normal [facility] Comment on above: Performed By: #### T ABDI, CMP, LIPID ####[facility] [address] [place], [place] [address]Dr. Hu Can AST [Catalytic activity/Vol] 12 U/L Critically low 15-37 [facility] Comment on above: Performed By: #### T ABDI, CMP, LIPID ####[facility] [address] [place], [place] [address]Dr. Hu Can Bilirubin [Mass/Vol] 0.7 mg/dL Normal 0.2-1.0 [facility] Comment on above: Performed By: #### T ABDI, CMP, LIPID ####[facility] [address] [place] [address]Dr. Hu Can Calcium [Mass/Vol] 8.7 mg/dL Normal 8.5-10.1 [facility] Comment on above: Performed By: #### T ABDI, CMP, LIPID ####[facility] [address] [place] [address]Dr. Hu Can Chloride [Moles/Vol] 102 mmol/L Normal 98-[address] [facility] Comment on above: Performed By: #### T ABDI, CMP, LIPID ####[facility] [address] [place] [address]Dr. Hu Can CO2 [Moles/Vol] 28.2 mmol/L Normal 21.0-32.0 [facility] Comment on above: Performed By: #### T SH, CMP, LIPID ####[facility] [address] [place] [id number]. Hu Can Creatinine [Mass/Vol] 0.91 mg/dL Normal 0.55-1.[address] [facility] Comment on above: Performed By: #### T SH, CMP, LIPID ####[facility] [address] [place] [id number]. Hu Can EGFR-AF [facility] LUCIAN >60 Normal >=60 [facility] Comment on above: Performed By: #### T SH, CMP, LIPID ####[facility] [address] [place] [id number]. Hu Can EGFR-NON AF [facility] LUCI[facility] >60 Normal >=[address] [facility] Comment on above: Performed By: #### T SH, CMP, LIPID ####[facility] [address] [place] [phone]. Hu Can Globulin (S) [Mass/Vol] 3.3 g/dL Normal [facility] Comment on above: Performed By: #### T SH, CMP, LIPID ####[facility] [address] [place] [id number]. Hu Can Glucose [Mass/Vol] 105 mg/dL Normal 74-106 [facility] Comment on above: Performed By: #### T SH, CMP, LIPID ####[facility] [address] [place] [id number]. Hu Can Potassium [Moles/Vol] 4.2 mmol/L Normal 3.5-5.[address] [facility] Comment on above: Performed By: #### T SH, CMP, LIPID ####[facility] [address] [place] [phone]. Hu Can Protein [Mass/Vol] 7.1 g/dL Normal 6.4-8.2 [facility] Comment on above: Performed By: #### T SH, CMP, LIPID ####[facility] [address] [place] [id number]. Hu Can Sodium [Moles/Vol] 137 mmol/L Normal 136-145 [facility] Comment on above: Performed By: #### T SH, CMP, LIPID ####[facility] [address] [place] [address]Dr. Hu Can Urea nitrogen [Mass/Vol] 23.0 mg/dL Critically high 7.0-18.0 [facility] Comment on above: Performed By: #### T SH, CMP, LIPID ####[facility] [address] [place] [address]Dr. Hu Can Urea nitrogen/Creatinin e [Mass ratio] 25.3 mg/mg Normal [facility] Comment on above: Performed By: #### T SH, CMP, LIPID ####[facility] [address] [place] [address]Dr. Hu Can TSHon 12-13-2021 TSH 1.249 uIU/mL Normal 0.358-3.740 [facility] Comment on above: Performed By: #### T SH, CMP, LIPID ####[facility] [address] [place] [address]Dr. Hu Can XR CSPINE MIN 4 VIEWSon [...] AL CAMPOS Date: 2021-12-07 19:[address] [facility] MG MAMM SCREEN 3D HIEU CADon 10-28-2021 MG MAMM SCREEN 3D HIEU CAD Patient: THERESA REYES Exam Date: 10/28/2021 : 1970 Gender:F Ordering : DR GABBY DEE . Admission #: [id number] Family : Order #: [id number] CLICK HERE TO VIEW EXAM RADIOLOGY REPORT [...] ovarian cancer at age 80. LOCATION: [facility] BREAST COMPOSITION: Scattered areas fibroglandular [...] M.D. on 10/28/2021 at 12:[address] [facility] Covid-19 PCR (CVDTB)on 09-15 SARS-CoV-2 (COVID-19) RNA CLARISSA+probe Ql (Unsp spec) Not detected Normal NOT DETECTED [facility] Comment on above: Result Comment: [...] for this test is supported by the Submersible Pilot of Health and Human Service's declaration that [...] used). Performed By: #### C VDTB #### [facility] [address], [place] [address] Dr. Hu Can [facility]on 09-14 SARS-CoV-2 (COVID-19) RNA CLARISSA+probe Ql (Unsp spec) Detected Critically abnormal NOT DETECTED [facility] Comment on above: Result Comment: This test is not yet approved or cleared by the [place] FDA. When there are no FDA-approved or cleared tests available, and other criteria are met, FDA can make tests available under an emergency access mechanism called an Emergency Use Authorization (EUA). The EUA for this test is supported by the Submersible Pilot of Health and Human Service's declaration that [...] longer be used). Performed By: #### [facility] ####[facility] [address] [place], [place] [address]GmDr. Hu Can Pathology Noteon 07-12-2021 Pathology Note [id number] D:127 Normal [facility] Vital Signs Date Time Vital Sign Value Performing Clinician Facility 12-29-2023 15:39-0400 Body height 170.2 cm [employer] Work Phone: [facility] 12-29-2023 15:39-0400 Body mass index (BMI) [Ratio] 30.23 kg/m2 [employer] Work Phone: [facility] 12-29-2023 15:39-0400 Body weight 87.54 kg [employer] Work Phone: [facility] 12-29-2023 15:39-0400 Diastolic blood pressure 82 mm[Hg] [employer] Work Phone: [facility] 12-29-2023 15:39-0400 Systolic blood pressure 134 mm[Hg] Dru Kinga DO Work Phone: [facility] 09-02-2022 09:30-0400 Body height 170.18 cm Diamond Case Other [facility] Other 09-02-2022 09:30-0400 Body mass index (BMI) [Ratio] 30.85 kg/m2 Diamond Case Other [facility] Other 09-02-2022 09:30-0400 Body weight 89.36 kg [facility] [employer] Other [facility] Other 04-08-2022 15:14-0500 Blood Pressure Location [facility] [place] 04-08-2022 15:14-0500 Diastolic blood pressure 88 mm[Hg] Morris [employer] [facility] [place] 04-08-2022 15:14-0500 Heart rate 72 /min [facility] [place] 04-08-2022 15:14-0500 Respiratory rate 16 /min [employer] [facility] [place] 04-08-2022 15:14-0500 Systolic blood pressure 128 mm[Hg] [facility] [place] Encounters Encounter Date Encounter Type Care Provider Facility Start: 12-29-2023 End: 12-29-2023 ambulatory DRU KINGA Not Available Start: 12-29-2023 End: 12-29-2023 Patient encounter procedure Dru Kinga DO Work Phone: [facility] Start: 12-29-2023 End: 12-29-2023 Periodic preventive med est patient 40-64yrs Dru Kinga DO Work Phone: [facility] Comment on above: Postmenopausal state ; Well woman exam with routine gynecological exam Start: 12-29-2023 End: 12-29-2023 Bamboo flowsheet Dru Kinga DO Work Phone: [facility] Start: 12-29-2023 End: 01-04-2024 Bamboo flowsheet Dru Kinga DO Work Phone: [facility] Start: 12-29-2023 End: 01-04-2024 Clinisync Result Encounter Dru Kinga DO Work Phone: [facility] External Department Unsolicited Start: 01-02-2023 End: 01-02-2023 ambulatory Diamond Calvey Other [facility] Other Start: 01-02-2023 Office outpatient vi sit 15 minutes Diamond Calvey [facility] Start: 09-23-2022 End: 09-23-2022 ambulatory Diamond Calvey Other [facility] Other Start: 09-23-2022 Office outpatient vi sit 15 minutes Diamond Calvey [facility] Start: 09-02-2022 End: 09-02-2022 ambulatory Diamond Calvey Other [facility] Other Start: 09-02-2022 Office outpatient vi sit 15 minutes Diamond Calvey [facility] Start: 07-08-2022 End: 07-08-2022 ambulatory Diamond Calvey Other [facility] Other Start: 07-08-2022 Office outpatient vi sit 15 minutes Diamond Calvey [facility] Start: 06-03-2022 Office outpatient vi sit 15 minutes Diamond Calvey [facility] Start: 06-03-2022 End: 06-03-2022 ambulatory Diamond R Calvey Facility:[facility] Start: 06-03-2022 End: 06-03-2022 ambulatory MD Diamond Case Work Phone: [facility] Work Phone: Start: 06-03-2022 End: 06-03-2022 Patient encounter procedure MD Diamond Case Work Phone: [facility] Start: 05-16-2022 End: 05-17-[address] GABBY DEE . Facility:[facility] Start: 05-14-2022 End: 05-22-[address] GABBY DEE . Facility:[facility] Start: 05-07-2022 End: 05-08-2022 ambulatory Morris CAGLE Facility:CD:[id number] Start: 05-06-2022 End: 05-06-2022 ambulatory Diamond Case Other [facility] [employer] Other Start: 05-06-2022 Office outpatient ne w 30 minutes Diamond Case [facility] Start: 04-08-2022 End: 04-09-2022 ambulatory Morris CAGLE Facility:[facility] Start: 04-08-2022 End: 04-08-2022 Patient encounter procedure Morris CAGLE [facility] [place] Start: 03-16-[address] GABBY DEE . Facili ty:[facility] Start: 02-26-2022 End: 02-26-[address] GABBY DEE . Facility:[facility] Start: 01-01-2022 End: 01-31-[address] GABBY DEE . Facility:[facility] Start: 12-16-2021 Encounter for genera l adult medical examination without abnormal findings DR GABBY DEE . [facility] Start: 12-13-2021 End: 12-14-[address] GABBY DEE . Facility:[facility] Start: 12-13-2021 End: 12-14-2021 Encounter for general adult medical examination without abnormal findings DR GABBY DEE . Facility:[facility] Start: 12-07-2021 End: 12-08-[address] GABBY DEE . Facility:[facility] Start: 10-28-2021 End: 10-29-[address] GABBY DEE . Facility:[facility] Start: 10-12-2021 End: 10-13-2021 ambulatory LEEANNE KIRK Facility:[facility] Start: 10-07-2021 End: 10-07-2021 ambulatory LEEANNE KIRK Facility: Procedures Date Procedure Procedure Detail Performing Clinician Start: 12-29-2023 IGP,APTIMA HPV,AGE GDLN Dru Kinga DO Work Phone: Start: 11-18-2023 Mammography Dru Fazi o DO Work Phone: Start: 06-03-2022 Plain X-ray of left hand MD Diamond Case Work Phone: Start: 05-27-2021 Microscopic observat ion [Identifier] in Cervix by Cyto stain Dru Kinga DO Work Phone: Start: 03-27-2021 Colonoscopy Dru Fazi o DO Work Phone: Start: 03-27-2021 Colonoscopy Morris FERNANDEZ LL Complete obstruction of lacrimal canaliculus (disorder) Morris NILL Fasciotomy of foot Morris Alek ILL Comment on above: bilateral Ganglion cyst of rig ht foot Morris NILL Plan of Treatment Date Care Activity Detail Author Start: 03-27-2031 Screening for malignant neoplasm of colon [facility] Start: 05-27-2026 Screening for malignant neoplasm of cervix [facility] Start: 01-03-2025 End: 01-03-2025 Patient encounter procedure 01/03/2025 9:00 AM EDT Office Visit [facility] [address] [place] [address] Dru Donato, DO [address] [place] [address] [facility] Start: 11-17-2024 Screening for malignant neoplasm of breast Mammogram [facility] Start: 12-29-2023 End: 12-28-2024 DXA Skeletal system Views for bone density DEXA bone density Imaging Routine Postmenopausal state Expected: 12/29/2023 (Approximate), Expires: 12/28/2024 [facility] Work Phone: Comment on above: Expected: 12/29/2023 (Approximate), Expires: 12/28/2024 Start: 11-15-2023 Influenza vaccination Influenza Vacc ine (#1) [facility] Start: 1970 Screening for malignant neoplasm of colon [facility] THIN PREP TIS PAP AN D HR HPV DNA THIN PREP TIS PAP AND HR HPV DNA Pathology and Cytology Routine Well woman exam with routine gynecological exam Ordered: 12/29/2023 [facility] Comment on above: Ordered: 12/29/2023 Immunizations Immunization Date Immunization Notes Care Provider Fa cilijosh 12-14-2021 influenza virus vaccine, unspecified formulation Morris CAGLE [facility] 01-18-2021 influenza virus vaccine, unspecified formulation Drubrielle Donato Work Phone: [facility] 04-30-2020 SARS-CoV-2 (COVID-19 ) Ad26 vaccine, recombinant Morris JEFF [facility] 04-02-2020 SARS-CoV-2 (COVID-19 ) Ad26 vaccine, recombinant Morris [facility] Payers Date Payer Category Payer Self-pay 2022 [facility] [id number] 2022 Unknown [id number] 2019 Unknown [id number] 1970 Unknown [id number] 2.16.840.1.388497.3.579.2. 727 1970 Unknown [id number] 2.16.840.1.052555.3.579.2. 727 1970 Unknown [id number] 2.16.840.1.070747.3.579.2. 593 1970 Unknown [id number] 2.16.840.1.125978.3.579.2. 593 1970 Unknown [id number] 2.16.840.1.576965.3.579.2. 593 1970 Unknown [id number] 2.16.840.1.496450.3.579.2. 593 1970 Unknown [id number] 2.16.840.1.807041.3.579.2. 593 1970 Unknown [id number] 2.16.840.1.231383.3.579.2. 593 1970 Unknown [id number] 2.16.840.1.360799.3.579.2. 593 1970 Unknown [id number] 2.16.840.1.631592.3.579.2. 593 1970 Unknown [id number] 2.16.840.1.054096.3.579.2. 593 1970 Unknown [id number] 2.16.840.1.229679.3.579.2. 593 1970 Unknown [id number] 2.16.840.1.534290.3.579.2. 593 1970 Unknown [id number] 2.16.840.1.100778.3.579.2. 1259 1959 Self-pay [id number] Unknown [id number] 2.16.840.1.393019.3.579.2. 531 Social History Date Type Detail Facility Start: 04-08-2022 End: 12-12-2022 Tobacco smoking status Never smoked tobacco (finding) [facility] [place] Tobacco smoking status Never [facility] [place] Start: 12-23-2022 End: 12-29-2023 Sex Assigned At Female Dwayne Purvis [facility] Start: 1970 Sex Assigned At Female F [facility] Start: 12-23-2022 End: 12-29-2023 Alcoholic beverage intake Current drinker of alcohol (finding) [facility] Start: 12-23-2022 End: 12-29-2023 History of Social function [facility] Start: 12-12-2022 Alcohol Comment Alcohol: 1 or 2 drinks on a typical day/monthly or less Caffeine: 2-3 cups/day [facility] Start: 09-03-2022 Gender identity Identifies as female gender (finding) [facility] Functional Status Date Assessment Result Facility 04-08-2022 Functional Status N/A General Laws [facility] Clinical Notes 12-07-2021 to 12-29-2023 Ariana Mathew LPN - 12/29/2023 3:00 PM EDT Note Date & Type Note Facility 12-29-2023 History of Presen t illness Narrative Reason for Appointment: Patient ID: Theresa Reyes is a 53 y.o. female who presents for Well Women Visit Patient presents today for Annual Exam. MEDICATIONS No current outpatient medications ALLERGIES No Known Allergies PROBLEMS Active Ambulatory Problems Diagnosis Date Noted No Active Ambulatory Problems Resolved Ambulatory Problems Diagnosis Date Noted No Resolved Ambulatory Problems Past Medical History: Diagnosis Date Arthralgia Asthma (CMS/HCC) Headache Hypercholesterolemia ([facility]/HCC) Visit for screening mammogram 2017 HISTORY PAST MEDICAL HISTORY SOCIAL HISTORY Past Medical History: Diagnosis Date Arthralgia Asthma (CMS/HCC) Headache Hypercholesterolemia (CMS/HCC) Visit for screening mammogram 2017 neg Social History Tobacco Use Smoking status: Never Smokeless tobacco: Not on file Substance Use Topics Alcohol use: Yes Comment: Alcohol: 1 or 2 drinks on a typical day/monthly or less Caffeine: 2-3 cups/day Drug use: Not on file FAMILY HISTORY Family History Problem Relation Name Age of Onset Diabetes Maternal Grandmother Hypertension Maternal Grandmother Ovarian cancer Maternal Grandmother Heart disease Paternal Grandmother Diabetes Paternal Grandmother Hypertension Paternal Grandmother Heart disease Paternal Grandfather SURGICAL HISTORY Past Surgical History: Procedure Laterality Date CERVICAL SPINE SURGERY 05/2023 EYE SURGERY FOOT SURGERY REVIEW OF SYSTEMS Review of Systems: Review of Systems Constitutional: Negative. HENT: Negative. Eyes: Negative. Respiratory: Negative. Cardiovascular: Negative. Gastrointestinal: Negative. Genitourinary: Negative. Musculoskeletal: Negative. Skin: Negative. Neurological: Negative. All other systems reviewed and are negative. Hematological: Negative. Endocrine: Negative. Allergic/Immunologic: Negative. OBJECTIVE Objective: Physical Exam Constitutional: Appearance: Normal appearance. She is well-developed. Genitourinary: Vulva normal. Breasts: Breasts are soft. Right: Normal. Left: Normal. Cardiovascular: Rate and Rhythm: Normal rate and regular rhythm. Pulmonary: Effort: Pulmonary effort is normal. Breath sounds: Normal breath sounds. Abdominal: General: Bowel sounds are normal. There is no distension. Palpations: Abdomen is soft. Tenderness: There is no abdominal tenderness. There is no guarding or rebound. Musculoskeletal: General: No swelling. Normal range of motion. Right lower leg: No edema. Left lower leg: No edema. Neurological: Mental Status: She is alert and oriented to person, place, and time. Skin: General: Skin is warm and dry. Psychiatric: Mood and Affect: Mood normal. Behavior: Behavior normal. Vitals and nursing note reviewed. Exam conducted with a pastoral assistant present. Vitals: Estimated body mass index is 30.23 kg/m as calculated from the following: Height as of this encounter: 5' 7 . Weight as of this encounter: 193 lb. BP: 134/82 No LMP recorded. Patient is postmenopausal. ASSESSMENT & PLAN ICD-10-CM 1. Postmenopausal state Z78.0 DEXA bone density 2. Well woman exam with routine gynecological exam Z01.419 THIN PREP TIS PAP AND HR HPV DNA Annual Exam: Patient presents today for an annual exam. Patient states she is doing well and has no complaints. Pap was obtained without difficulty. Orders Placed This Encounter Procedures DEXA bone density Follow Up: Patient is to return in one year for annual unless needed otherwise. Documented by Ariana Mathew LPN on behalf of: Dru Donato DO documented in this encounter [facility] 01-02-2023 Evaluation note Encounter Date Diagnosis Assessment [...] well as cortisone injection and surgical release. [facility] Other 07-11-2023 Evaluation note* Encounter Date Diagnosis [...] Left hand pain (ICD- 10 - M79.642) [facility] Other 06-20-2023 Evaluation note* Encounter Date Diagnosis [...] joint of left hand (ICD-10 - M18.12) [facility] Other 2023 Evaluation note* Encounter Date Diagnosis [...] joint of left hand (ICD-10 - M18.12) [facility] Other 03-21-2023 Evaluation note* Encounter Date Diagnosis [...] and tingle for hours after this injection. [facility] Other 03-04-2023 NotePROCEDURE: XR FOOT RT MIN [...] Electronically authenticated by: AL CAMPOS Date: 2022-05-17 12:06[facility]02-22-2023 NoteOPERATIVE NOTE OPERATION DATE: 05/07/2022 PREOPERATIVE [...] in good condition. CC: Gabby Dee M.D.[facility] [id number] NoteOPERATIVE NOTE OPERATION DATE: 05/07/2022 ADDENDUM: The distal rectal 4 mm irregular flat polyp was removed with hot snare with good hemostasis, not with cold biopsy forceps.[facility] 05-06-2022 Evaluation note* Encounter Date [...] Apr, Right hand pain (ICD-10 - M79.641) [facility] Other 09-24-2022 NotePROCEDURE: XR SHOULDER LT 2V or > COMPARISON: None. HISTORY: Impingement syndrome of shoulder region FINDINGS: BONES:No fracture, acute abnormality, or significant arthropathy. SOFT TISSUES:Negative. No visible soft tissue swelling. EFFUSION:None visible. OTHER: Negative. IMPRESSION: No acute disease. Electronically authenticated by: AL CAMPOS Date: 2021-12-07 19:36[facility] [place] [facility] No data available for this section [facility] [place] Evaluation noteNo assessment information available [facility] Work Phone: Evaluation note* Diagnosis Postmenopausal state Asymptomatic postmenopausal status (age-related) (natural) Well woman exam with routine gynecological exam Routine gynecological examination documented in this encounter [facility] N[facility]ative - Reported* Type Description Date Medical History high cholesterol Surgical History Foot Surgery Surgical History clogged tear duct [facility] Other Hospital Discharge instructions No data available for this section [facility] [place] Progress note No data available for this section [facility] [place] Summary Purpose Family History No Family [...] Dates Diamond Case MD Attending Provider Active Money Order Clerk Relationship Specialty Start Date End Date Gabby Dee MD [address] [place] [address] PCP - General Family Medicine 12/23/22 Money Order Clerk Relationship Specialty Start Date End Date Gabby Dee MD [address] [place] [address] PCP - General Family Medicine 12/23/22 Money Order Clerk Relationship Specialty Start Date End Date Gabby Dee MD [address] [facility] [place] [address] PCP - General Family Medicine 12/23/22 INFORMATION SOURCE (unrecogn ized section and content) DATE CREATED AUTHOR [facility]/16/2022 [facility] DATE CREATED AUTHOR AUTHOR'S ORGANIZ ATION 06/18/2022 [facility] DATE CREATED AUTHOR AUTHOR'S ORGANIZ ATION 06/21/2022 [facility] DATE CREATED AUTHOR AUTHOR'S ORGANIZ ATION 12/31/2023 [facility] Specialists EPIC REASON FOR VISIT (unrecogniz ed section and content) Reason Comments Well Women Visit Goals (unrecognized section and content) Goals may [...] BE BASED ON THE PRIMARY CLINICAL RECORDS. [employer] [facility]. provides no warranty or guarantee of the accuracy or completeness of information in this document.
== END 2024-01-25 09:59 | disposition home or self-care (01) ==
LOC: RAD 09:58
PROVIDERS: PCP Family Medicine; Visit Provider Obstetrics & Gynecology
DX: Z78.0 Asymptomatic menopausal state (principal); M85.88 Other specified disorders of bone density and structure, other site
CPT/HCPCS: 77080

== ENCOUNTER 2024-02-23 08:08 | Outpatient (OUT) | payer BC, SELFPAY ==
--- NOTE | 2024-02-23 08:10 | XR_ITS ---
The [address] [address] Patient Name: THERESA JOSHUA MRN: [id number] date: 1970 Sex: F Assigned Patient Location: [facility] Current Patient Location: Accession/Order Number: [id number] Exam Date: 02/23/2024 08:35 Report Date: 02/24/2024 06:52 At the request of: TERRA FOX Procedure: XR foot RT min 3V PROCEDURE: XR foot RT min 3V HISTORY: Right Foot Pain COMPARISON: XR foot right 05/16/2022 FINDINGS: BONES:Minimal degenerative changes the first metatarsophalangeal joint. Small calcaneal plantar spur. SOFT TISSUES:No visible soft tissue swelling. EFFUSION:None visible. OTHER: Negative. XR/XR foot RT min 3V IMPRESSION: 1. Minimal degenerative changes. 2. No acute or suspicious abnormality. Electronically authenticated by: GABRIEL SANDERSON Date: 02/24/2024 06:52
== END 2024-02-23 08:09 | disposition home or self-care (01) ==
LOC: RAD 08:08
PROVIDERS: PCP Family Medicine; Visit Provider Podiatrist Foot & Ankle Surgery
DX: M79.671 Pain in right foot (principal)
CPT/HCPCS: 73630

== ENCOUNTER 2024-03-02 07:00 | Outpatient (OUT) | payer BC, SELFPAY ==
--- NOTE | 2024-03-02 07:03 | MR_ITS ---
The [address] [address] Patient Name: THERESA JOSHUA MRN: [id number] date: 1970 Sex: F Assigned Patient Location: MRI Current Patient Location: Accession/Order Number: [id number] Exam Date: 03/02/2024 07:05 Report Date: 03/04/2024 13:53 At the request of: TERRA FOX Procedure: MR ankle RT wo con HISTORY: Chronic right heel pain radiating into the arch of the foot. Possible plantar fasciitis. MR ankle RT wo con: 03/02/2024 7:05 AM EST COMPARISON: Radiographs right foot 02/23/2024. TECHNIQUE: Multiplanar, multisequence MRI images of the ankle were obtained without contrast. FINDINGS: A few images are slightly degraded by motion artifact. LIGAMENTS: The anterior talofibular ligament appears within normal limits. The calcaneofibular ligament, posterior talofibular ligament, and distal tibiofibular ligaments appear within normal limits. The deltoid ligament complex appears within normal limits. 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 There is mild tendinopathy of the retromalleolar portion of the peroneus longus tendon. There is a small amount of fluid in the peroneal tendon sheath in the region of the lateral malleolus. The other tendons of the ankle including the Achilles tendon appear within normal limits. SINUS TARSI AND TARSAL TUNNEL: No space-occupying mass is seen in the tarsal tunnel or the sinus tarsi. BONES AND JOINTS: The bone marrow signal intensity is age appropriate. No unstable osteochondral defect of the tibiotalar joint is identified. PLANTAR FASCIA: There is a large plantar calcaneal enthesophyte. There is edema-like signal within this enthesophyte. There is severe thickening and intermediate signal intensity of the central band of the plantar fascia at its attachment to the calcaneus. This is compatible severe plantar fasciitis. Superimposed on this plantar fasciitis is evidence of a moderate grade, longitudinal intrasubstance tear of the deep fibers of the plantar fascia in this region. This tear measures approximately 5 x 8 mm in transverse and AP dimension and involves approximately 50% of the thickness of the plantar fascia. SOFT TISSUES: No significant soft tissue swelling is seen. MR/MR ankle RT wo con IMPRESSION: 1. Severe plantar fasciitis of the proximal central band of the plantar fascia with a superimposed moderate grade longitudinal tear of the deep fibers of the proximal 8 mm of the plantar fascia. There is reactive edema within an adjacent large plantar calcaneal enthesophyte in this region. 2. Mild tendinopathy of the retromalleolar portion of the peroneus longus tendon with a possible mild tenosynovitis in this region. 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 3. No ligament injury or osteochondral defect is seen. Electronically authenticated by: GABBY BURKS Date: 03/04/2024 13:53
== END 2024-03-02 07:01 | disposition home or self-care (01) ==
LOC: MRI 07:01
PROVIDERS: PCP Family Medicine; Visit Provider Podiatrist Foot & Ankle Surgery
DX: M72.2 Plantar fascial fibromatosis (principal); M76.71 Peroneal tendinitis, right leg
CPT/HCPCS: 73721

== ENCOUNTER 2024-05-27 10:48 | Outpatient (OUT) | payer BC, SELFPAY ==
--- NOTE | 2024-05-27 10:51 | US_ITS ---
The [address] [address] Patient Name: THERESA JOSHUA MRN: [id number] date: 1970 Sex: F Assigned Patient Location: Current Patient Location: [place] Accession/Order Number: [id number] Exam Date: 05/27/2024 12:01 Report Date: 05/27/2024 12:04 At the request of: DRU ANDERSON DO Procedure: US pelvis w/ transvaginal COMPLETE PELVIC ULTRASOUND WITH TRANSVAGINAL IMAGING COMPARISON: 05/30/2021 CLINICAL DATA: Postmenopausal patient. Right-sided pelvic pain. Real-time ultrasound evaluation the pelvis was performed utilizing both a transabdominal and transvaginal approach. TRANSABDOMINAL: Estimated uterine size is present 5.5 x 2.7 x 4.0 cm. No focal myometrial abnormalities are seen. The endometrial lining is estimated at 4 - 5 mm. The ovaries were not identified. TRANSVAGINAL: Transvaginal scans were performed to better evaluate the uterus and adnexa. The uterus is retroverted. No focal myometrial abnormalities are seen. The endometrial lining is estimated at 3 - 4 mm. There is a nabothian cyst measuring 1 cm in size. Once again, neither ovary is identified. There are no adnexal cysts. No free fluid is seen. US/US pelvis w/ transvaginal IMPRESSION: NONVISUALIZATION OF THE OVARIES. NO OTHER SIGNIFICANT FINDINGS. Impression dictated by: Ariana Huynh M.D.05/27/2024 12:04 PM Dictation Location: [place] [address] Electronically authenticated by: [id number] Date: 05/27/2024 12:04
--- OUTSIDE RECORDS SUMMARY | 2024-05-27 10:57 | XMS_ITS | CCD ---
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 Name Role Phone Gabby Dee Primary Care [...] Unavailable HOY ., DR PIERRE Admitting Unavailable [place], DR AL Shaikh Consulting Unavailable HOY ., [...] Unavailable HOY ., DR PIERRE Consulting Unavailable [place], DR AL Shaikh Consulting Unavailable HOY ., DR PIERRE Admitting Unavailable HOY ., DR PIERRE Attending Unavailable HOY ., DR PIERRE Primary Care Unavailable Gabby Dee MD Primary Care Provider [phone] DRU DONATO Attending Unavailable Allergies Allergy Classification Reported Allergen(s) Allergy Type Date of Onset Reaction(s) Facility (1 source) No Known Medication Allergies; Translations: [No Known Medication Allergies] Propensity to adverse reactions (disorder) [facility] Repository (2 sources) Baclofen Drug Allergy [facility] Medications Current Medications Medication Drug [...] OF COLONIC POLYPS] Onset: 05-07-2022 Episodic Other bone disease and musculoskeletal deformities (4 sources) Osteopenia; Translations: [Other specified disorders of bone density and structure, unspecified site] Onset: 02-15-2024 02-15-2024 Episodic Other connective tissue disease (6 sources) [...] AGE GDLN ACOG TESTING Note . [facility] Comment on above: TESTS RESULT FLAG UN ITS REF RANGE LAB Clinician Provided Cytology Information Source.............Cervix;Endocervix No. of containers..01 ThinPrep Vial Age Algo ACOG Sheila... 30-65 01 FLAG LEGEND: L-Low Normal,H-High Normal,LL-Alert Low,HH-Alert High <-Panic Low,>-Panic High,A-Abnormal,AA-Critical Abnormal Performed at: 01 =G [address] [place] [address] Sharmaine Hall MD, HPV APTIMA Negative Negative [facility] e Comment on above: This nucleic acid am plification test detects fourteen high- risk HPV types (16,18,31,33,35,39,45,51,52,56,58,59,66,68) without differentiation. Performed at: =G - [facility] [id number] Natural Resources Engineer: Sharmaine Hall MD, Phone: [phone] Performed at: - [facility] [id number] Natural Resources Engineer: Sharmaine Hall MD, Phone: [phone] IGP, APTIMA HPV, RFX 16/18,45 Note . [facility] Comment on above: TESTS RESULT FLAG U NITS REF RANGE LAB DIAGNOSIS: 02 NEGATIVE FOR INTRAEPITHELIAL LESION OR MALIGNANCY. Specimen adequacy: 02 Satisfactory for evaluation. Endocervical and/or squamous metaplastic cells (endocervical component) are present. Performed by: Mandy Luis, Plaster Tender (ASCP) . 02 Note: Note 02 The Pap [...] <-Panic Low,>-Panic High,A-Abnormal,AA-Critical Abnormal Performed at: [address] [address] Sharmaine Hall MD, BRUSH-SPATULA CERVIX ENDOCERVIX [facility] XR hand LT min 3V*on 023 XR hand LT min 3V* [address] [address] XRay Report Signed Patient: Theresa Reyes MR#: [id number] : 1970 Acct:[id number] Age/Sex: 52 / F ADM Date: 06/03/22 Loc: [facility] [place] Room: Type: [facility] Attending Dr: Diamond Case MD Copies [...] M.D.06/03/2022 1:11 PM Dictation Location: [place] [address] Transcribed By: [facility] 06/03/22 1311 Dictated By: Miguel Ramey II, MD 06/03/22 1310 Signed By: 06/03/22 131 Normal [facility] XR hand LT min 3V* [facility] [employer] Other XR hand LT min 3V* [facility] [employer] Other XR hand LT min 3V* [address] [employer] Other XR hand LT min 3V* YULIANA Doshi [address] [employer] Other XR hand LT min 3V* XRay Report [employer] Other XR hand LT min 3V* Signed [employer] Other XR hand LT min 3V* Patient: Theresa Reyes MR#: [id number] [employer] Other XR hand LT min 3V* [id number] [employer] Other XR hand LT min 3V* : 1970 Acct:[id number] [employer] Other XR hand LT min 3V* Age/Sex: 52 / F ADM Date: 06/03/22 [employer] Other XR hand LT min 3V* Loc: [facility] Room: Type : REG CLI [employer] Other XR hand LT min 3V* Attending Dr: Benny Case MD [employer] Other XR hand LT min 3V* Copies to: Diamond Case MD [employer] Other XR hand LT min 3V* Ordering Provider: Diamond Case MD [employer] Other XR hand LT min 3V* Date of Service: 06/03/22 [employer] Other XR hand LT min 3V* XR/XR hand LT min 3V*: PAIN [employer] Other XR hand LT min 3V* XR hand LT min 3V* 06/03/2022 8:44 AM [employer] Other XR hand LT min 3V* SIGNS AND SYMPTOMS: Left thumb/first metacarpal pain [employer] Other XR hand LT min 3V* PROTOCOL: Frontal, lateral, and oblique radiographs of the left hand: [employer] Other XR hand LT min 3V* COMPARISON: None [employer] Other XR hand LT min 3V* FINDINGS: [employer] Other XR hand LT min 3V* The bones are in anatomic alignment. There is mild degenerative change at the first carpometacarpal [employer] Other XR hand LT min 3V* junction. There is preservation of the joint spaces, otherwise. There is no fracture or dislocation. [employer] Other XR hand LT min 3V* No significant soft tissue swelling. [employer] Other XR hand LT min 3V* XR/XR hand LT min 3V* [employer] Other XR hand LT min 3V* IMPRESSION: [employer] Other XR hand LT min 3V* No acute bony injury. [employer] Other XR hand LT min 3V* Mild degenerative fa cet noted at the base of the thumb. [employer] Other XR hand LT min 3V* Impression dictated by: Miguel Ramey M.D.06/03/2022 1:11 PM [employer] Other XR hand LT min 3V* Dictation Location: [place] [address] [employer] Other XR hand LT min 3V* Transcribed By: KARRIE 06/03/22 [facility] [employer] Other XR hand LT min 3V* Dictated By: Miguel Ramey II, MD 06/03/[address] [place] [address] [employer] Other XR hand LT min 3V* Signed By: [employer] Other XR hand LT min 3V* 06/03/[address] [place] [address] [employer] Other Reminderson 05-15-2022 Reminders - From: Jessica Mims LPN To: N - Clinical; Sent: 05/15/2022 07:57:39 EST Show up: 04/06/2025 07:00:00 EST Subject: colonoscopy recall Due Date/Time: 05/07/2025 07:00:00 EST Reminder/Recall Patient is due for colonoscopy 05/07/2025 due to history of tubulovillous adenoma. Normal [facility] Pathology Noteon 05-09-2022 Pathology Note [id number]#1.00CD :127 Normal [facility] Outside Colonoscopyon 2022 Outside Colonoscopy [id number]#1.00C D:127 Normal [facility] PREG HCG QUALon 05-07-2022 , QUAL Negative Normal NEGATIVE [facility] Comment on above: Performed By: #### P REG #### [facility] [address] [place] [address] Dr. Hu Can Pre-Certification Formon Pre-Certification Form [id number] CD:127 Normal [facility] Consent for Procedure/Surger yon 04-10-2022 Consent for Procedure/Surgery [id number]#1.00C D:127 Normal [facility] Facesheeton 04-10-2022 Facesheet [id number]#1.00C D:127 Normal [facility] General Surgery Office/Clini c Noteon 04-08-2022 [...] (COVID-19) Ad26 vaccine 04/02/2020 Recorded Normal [facility] Comment on above: Result Comment: Elec tronically Signed By: JEFF PONCE, Morris R\.br\Date and Time Signed: 04/08/22 15:33 EST Covid-19 PCR (CVDTBH)on 02-13 SARS-CoV-2 (COVID-19) RNA CLARISSA+probe Ql (Unsp spec) Not detected Normal NOT DETECTED [facility] Comment on above: Result Comment: When [...] for this test is supported by the [employer] of Health and Human Service's declaration that [...] longer be used). Performed By: #### C VDTBH #### [facility] [address] [place] [address] Dr. Hu Can INFLUENZA A AND B [facility]on 02-[facility] Normal [facility] Comment on above: Result Comment: Nega tive for Flu A protein angiten. Infection due to Flu A cannot be ruled out. Flu A angiten in the sample may be below the detection limit of the test. Performed By: #### I NFLUAB #### [facility] [address] [place] [address] Dr. [facility] Normal [facility] Comment on above: Result Comment: Nega tive for Flu B protein antigen. Infection due to Flu B cannot be ruled out. Flu B antigen in the sample may be below the detection limit of the test. Performed By: #### I NFLUAB #### [facility] [address] [place] [address] Dr. Hu Can INFLUENZA A AG Negative Normal NEGATIVE SEE COMMENT [facility] Comment on above: Performed By: #### I NFLUAB #### [facility] [address] [place] [address] Dr. Hu Can INFLUENZA B AG Negative Normal NEGATIVE SEE COMMENT [facility] Comment on above: Performed By: #### I NFLUAB #### [facility] [address] [place] [address] Dr. Hu Can INTERNAL CONTROLS Within Normal Limits Normal Wi thin Normal Limits [facility] Comment on above: Performed By: #### I NFLUAB #### [facility] [address] [place] [address] Dr. Hu Can CBC AUTO DIFFon 12-13-2021 BASO # 0.0 103/ul Normal 0.0-0.1 [facility] Comment on above: Performed By: #### C BC #### [facility] [address] [place] [address] Dr. Hu Can Basophils/100 WBC (Bld) 0.3 % Normal 0.2-2.0 [facility] Comment on above: Performed By: #### C BC #### [facility] [address] [place] [address] Dr. Hu Can EO # 0.1 103/ul Normal 0.0-0.7 [facility] Comment on above: Performed By: #### C BC #### [facility] [address] [place] [address] Dr. Hu Can Eosinophils/100 WBC (Bld) 1.1 % Normal 0.9-7.0 [facility] Comment on above: Performed By: #### C BC #### [facility] [address] [place] [address] Dr. Hu Can Erythrocyte distribution width (RBC) [Ratio] 13.7 % Normal 11.0-15.0 [facility] Comment on above: Performed By: #### C BC #### [facility] [address] [place] [address] Dr. Hu Can Hematocrit (Bld) [Volume fraction] 44.6 % Normal 36.0-48.0 [facility] Comment on above: Performed By: #### C BC #### [facility] [address] [place] [address] Dr. Hu Can Hemoglobin (Bld) [Mass/Vol] 14.5 g/dL Normal 12.0-16.0 [facility] Comment on above: Performed By: #### C BC #### [facility] [address] [place] [address] Dr. Hu Can IG # 0.02 10e3/ul Normal 0.00-0.03 [facility] Comment on above: Performed By: #### C BC #### [facility] [address] [place] [address] Dr. Hu Can IG % 0.3 % Normal 0.0-0.5 [facility] Comment on above: Performed By: #### C BC #### [facility] [address] [place] [address] Dr. Hu Can LYMPH # 2.3 103/ul Normal 1.2-3.8 [facility] Comment on above: Performed By: #### C BC #### [facility] [address] [place] [address] Dr. Hu Can Lymphocytes/100 WBC (Bld) 30.5 % Normal 20.5-60.0 [facility] Comment on above: Performed By: #### C BC #### [facility] [address] [place] [address] Dr. Hu Can MANUAL DIFF REQ NO Normal [facility] Comment on above: Performed By: #### C BC #### [facility] [address] [place] [address] Dr. Hu Can MCH (RBC) [Entitic mass] 29.1 pg Normal 26.7-34.0 [facility] Comment on above: Performed By: #### C BC #### [facility] [address] [place] [address] Dr. Hu Can MCHC (RBC) [Mass/Vol] 32.5 g/dL Normal 29.9-35.2 [facility] Comment on above: Performed By: #### C BC #### [facility] [address] [place] [id number] [address] Hu Can MCV (RBC) [Entitic vol] 89.6 fL Normal 81.0-99.0 [facility] Comment on above: Performed By: #### C BC #### [facility] [address] [place] [address] [address] Hu Can MONO # 0.5 103/ul Normal 0.3-0.8 [facility] Comment on above: Performed By: #### C BC #### [facility] [address] [place] [address] Dr. Hu Can Monocytes/100 WBC (Bld) 6.8 % Normal 1.7-12.0 [facility] Comment on above: Performed By: #### C BC #### [facility] [address] [place] [address] Dr. Hu Can NEUT # 4.6 103/ul Normal 1.4-6.5 [facility] Comment on above: Performed By: #### C BC #### [facility] [address] [place] [address] Dr. Hu Can Neutrophils/100 WBC (Bld) 61.0 % Normal 43.0-75.0 [facility] Comment on above: Performed By: #### C BC #### [facility] [address] [place] [address] Dr. Hu Can Platelet mean volume (Bld) [Entitic vol] 9.3 fL Critically low 9.5-13.5 [facility] Comment on above: Performed By: #### C BC #### [facility] [address] [place] [address] Dr. Hu Can PLT 296 103/ul Normal 150-450 [facility] Comment on above: Performed By: #### C BC #### [facility] [address] [place] [address] Dr. Hu Can RBC 4.98 106/ul Normal 4.20-5.40 [facility] Comment on above: Performed By: #### C BC #### [facility] [address] [place] [address] Dr. Hu Can WBC 7.5 103/ul Normal 4.0-11.0 [facility] Comment on above: Performed By: #### C BC #### [facility] [address] [place] [address] [address] Hu Can GLYCOHEMOGLOBIN A1Con 2021 ADA RECOMMENDATION SEE BELOW Normal [facility] Comment on above: Result Comment: ADA RECOMMENDED LIMIT 4.0 - 6.0 ADA THERAPEUTIC TARGET < 7.0 ACTION SUGGESTED > 7.0 Performed By: #### A 1C #### [facility] [address] [place] [address] [address] Hu Can Glucose [Mass/Vol] 114 mg/dL Normal [facility] Comment on above: Performed By: #### A 1C #### [facility] [address] [place] [address] [address] Hu Can HbA1c (Bld) [Mass fraction] 5.6 % Normal 4.5-6.2 [facility] Comment on above: Performed By: #### A 1C #### [facility] [address] [place] [address] [address] Hu Can LIPID PROFILEon 12-13-2021 CHOL-HDL RATIO NORM SEE BELOW Normal [facility] Comment on above: Result Comment: 3.3 - 4.4 LOW RISK 4.4 - 7.1 AVERAGE RISK 7.1 - 11.0 MODERATE RISK >11.0 HIGH RISK Performed By: #### T SH, CMP, LIPID ####[facility] [address] [place] [address]Dr. Hu Can Cholesterol [Mass/Vol] 279 mg/dL Critically high <=200 [facility] Comment on above: Performed By: #### T SH, CMP, LIPID ####[facility] [address] [place] [id number]. Hu Can Cholesterol in HDL [Mass/Vol] 50 mg/dL Normal 40-60 [facility] Comment on above: Performed By: #### T SH, CMP, LIPID ####[facility] [address] [place] [address]Dr. Hu Can Cholesterol in LDL [Mass/Vol] 197.8 mg/dL Normal [facility] Comment on above: Performed By: #### T SH, CMP, LIPID ####[facility] [address] [place] [address]Dr. Hu Can Cholesterol.total/ Cholesterol in HDL [Mass ratio] 5.6 {ratio} Normal [facility] Comment on above: Performed By: #### T SH, CMP, LIPID ####[facility] [address] [place] [address]Dr. Hu Can HDL NORMAL > or = 60 mg/dl - LO W CARDIOVASCULAR RISK <40 mg/dl - HIGH CARDIOVASCULAR RISK Normal [facility] Comment on above: Performed By: #### T SH, CMP, LIPID ####[facility] [address] [place] [address]Dr. Hu Can LDL CALC NORMAL SEE BELOW Normal [facility] Comment on above: Result Comment: <100 mg/dl OPTIMAL 100 - 129 mg/dl NEAR OR ABOVE OPTIMAL 130 - 159 mg/dl BORDERLINE HIGH 160 - 189 mg/dl HIGH >190 mg/dl VERY HIGH Performed By: #### T SH, CMP, LIPID ####[facility] [address] [place] [address]Dr. Hu Can Triglyceride [Mass/Vol] 156 mg/dL Critically high <=150 [facility] Comment on above: Performed By: #### T SH, CMP, LIPID ####[facility] [address] [place] [address]Dr. Hu Can VLDL CALC 31.2 mg/dL Normal [facility] Comment on above: Performed By: #### T SH, CMP, LIPID ####[facility] [address] [place] [address]Dr. Hu Can PROF 14(COMP METB)on 022 Albumin [Mass/Vol] 3.8 g/dL Normal 3.4-5.0 [facility] Comment on above: Performed By: #### T SH, CMP, LIPID ####[facility] [address] [place] [address]Dr. Hu Can Albumin/Globulin [Mass ratio] 1.2 {ratio} Normal [facility] Comment on above: Performed By: #### T SH, CMP, LIPID ####[facility] [address] [place] [address]Dr. Hu Can ALP [Catalytic activity/Vol] 74 U/L Normal 46-116 [facility] Comment on above: Performed By: #### T SH, CMP, LIPID ####[facility] [address] [place] [address]Dr. Hu Juan José ALT [Catalytic activity/Vol] 19 U/L Normal 14-59 [facility] Comment on above: Performed By: #### T SH, CMP, LIPID ####[facility] [address] [place] [address]Dr. Hu Can Anion gap [Moles/Vol] 11.0 mmol/L Normal [facility] Comment on above: Performed By: #### T SH, CMP, LIPID ####[facility] [address] [place], [place] [address]Dr. Hu Juan José AST [Catalytic activity/Vol] 12 U/L Critically low 15-37 [facility] Comment on above: Performed By: #### T SH, CMP, LIPID ####[facility] [address] [place], [place] [address]Dr. Hu Juan José Bilirubin [Mass/Vol] 0.7 mg/dL Normal 0.2-1.0 [facility] Comment on above: Performed By: #### T SH, CMP, LIPID ####[facility] [address] [place] [address]Dr. Hu Juan José Calcium [Mass/Vol] 8.7 mg/dL Normal 8.5-10.1 [facility] Comment on above: Performed By: #### T SH, CMP, LIPID ####[facility] [address] [place] [address]Dr. Hu Can Chloride [Moles/Vol] 102 mmol/L Normal 98-107 [facility] Comment on above: Performed By: #### T SH, CMP, LIPID ####[facility] [address] [place] [id number]. Hu Can CO2 [Moles/Vol] 28.2 mmol/L Normal 21.0-32.0 [facility] Comment on above: Performed By: #### T SH, CMP, LIPID ####[facility] [address] [place] [id number]. Hu Can Creatinine [Mass/Vol] 0.91 mg/dL Normal 0.55-1.02 [facility] Comment on above: Performed By: #### T SH, CMP, LIPID ####[facility] [address] [place] [id number]. Hu Can EGFR-AF ZIMBABWEAN >60 Normal >=60 [facility] Comment on above: Performed By: #### T SH, CMP, LIPID ####[facility] [address] [place] [address]Dr. Hu Can EGFR-NON AF ZIMBABWEAN >60 Normal >=60 [facility] Comment on above: Performed By: #### T SH, CMP, LIPID ####[facility] [address] [place] [id number]. Hu Can Globulin (S) [Mass/Vol] 3.3 g/dL Normal [facility] Comment on above: Performed By: #### T SH, CMP, LIPID ####[facility] [address] [place] [id number]. Hu Can Glucose [Mass/Vol] 105 mg/dL Normal 74-106 [facility] Comment on above: Performed By: #### T SH, CMP, LIPID ####[facility] [address] [place] [id number]. Hu Can Potassium [Moles/Vol] 4.2 mmol/L Normal 3.5-5.1 [facility] Comment on above: Performed By: #### T SH, CMP, LIPID ####[facility] [address] [place] [address]Dr. Hu Can Protein [Mass/Vol] 7.1 g/dL Normal 6.4-8.2 [facility] Comment on above: Performed By: #### T SH, CMP, LIPID ####[facility] [address] [place] [id number]. Hu Can Sodium [Moles/Vol] 137 mmol/L Normal 136-145 [facility] Comment on above: Performed By: #### T SH, CMP, LIPID ####[facility] [address] [place] [id number]. Hu Can Urea nitrogen [Mass/Vol] 23.0 mg/dL Critically high 7.0-18.0 [facility] Comment on above: Performed By: #### T SH, CMP, LIPID ####[facility] [address] [place] [id number]. Hu Can Urea nitrogen/Creatinin e [Mass ratio] 25.3 mg/mg Normal [facility] Comment on above: Performed By: #### T SH, CMP, LIPID ####[facility] [address] [place] [address]Dr. Hu Can TSHon 12-13-2021 TSH 1.249 uIU/mL Normal 0.358-3.740 [facility] Comment on above: Performed By: #### T SH, CMP, LIPID ####[facility] [address] [place] [address]Dr. Hu Can XR CSPINE MIN 4 VIEWSon [...] AL CAMPOS Date: 2021-12-07 19:38 Normal [facility] MG MAMM SCREEN 3D HIEU CADon 10-28-2021 MG MAMM SCREEN 3D HIEU CAD Patient: THERESA REYES Exam Date: 10/28/2021 : 1970 Gender:F Ordering : DR GABBY DEE . Admission #: [id number] Family : Order #: [id number] CLICK HERE TO VIEW EXAM RADIOLOGY REPORT [...] ovarian cancer at age 80. LOCATION: [facility] BREAST COMPOSITION: Scattered areas fibroglandular density. [...] on 10/28/2021 at 11:59 Approved by: Kan Saals M.D. on 10/28/2021 at 12:02 Normal [facility] Covid-19 PCR (CVDTB)on 09-15 SARS-CoV-2 (COVID-19) RNA CLARISSA+probe Ql (Unsp spec) Not detected Normal NOT DETECTED [facility] Comment on above: Result Comment: When [...] for this test is supported by the [place] of Health and Human Service's declaration that [...] used). Performed By: #### C VDTB #### [facility] [address] [place], [place] [address] Dr. Hu Can Covid-19 PCR ([facility])on 09-14 SARS-CoV-2 (COVID-19) RNA CLARISSA+probe Ql (Unsp spec) Detected Critically abnormal NOT DETECTED [facility] Comment on above: Result Comment: This test is not yet approved or cleared by the [place] FDA. When there are no FDA-approved or cleared tests available, and other criteria are met, FDA can make tests available under an emergency access mechanism called an Emergency Use Authorization (EUA). The EUA for this test is supported by the [place] of Health and Human Service's declaration that [...] be used). Performed By: #### C VDTB ####[facility] [address] [place], [place] [address]Dr. Hu Can Pathology Noteon 07-12-2021 Pathology Note [id number] D:127 Normal [facility] Vital Signs Date Time Vital Sign Value Performing Clinician Facility 12-29-2023 15:39-0400 Body height 170.2 cm [facility] Work Phone: [facility] 12-29-2023 15:39-0400 Body mass index (BMI) [Ratio] 30.23 kg/m2 [facility] Work Phone: [facility] 12-29-2023 15:39-0400 Body weight 87.54 kg [employer] Work Phone: [facility] 12-29-2023 15:39-0400 Diastolic blood pressure 82 mm[Hg] Dru Kinga DO Work Phone: [facility] 12-29-2023 15:39-0400 Systolic blood pressure 134 mm[Hg] Dru Kinga DO Work Phone: [facility] 09-02-2022 09:30-0400 Body height 170.18 cm Diamond [employer] Other [facility] Other 09-02-2022 09:30-0400 Body mass index (BMI) [Ratio] 30.85 kg/m2 [employer] Other [facility] Other 09-02-2022 09:30-0400 Body weight 89.36 kg Diamondgiorgi Case Other [facility] Other 04-08-2022 15:14-0500 Blood Pressure Location [facility] 04-08-2022 15:14-0500 Diastolic blood pressure 88 mm[Hg] Morris NILL [facility] 04-08-2022 15:14-0500 Heart rate 72 /min Morris NILL [facility] 04-08-2022 15:14-0500 Respiratory rate 16 /min Morris NILL [facility] 04-08-2022 15:14-0500 Systolic blood pressure 128 mm[Hg] Morris NILL [facility] Encounters Encounter Date Encounter Type Care Provider Facility Start: 02-15-2024 End: 02-15-2024 Phys/qhp telephone evaluation 5-10 min Dru Kinga DO Work Phone: [facility] Comment on above: Osteopenia, unspecif ied location Start: 12-29-2023 End: 12-29-2023 ambulatory DRU KINGA Not Available Start: 12-29-2023 End: 12-29-2023 Patient encounter procedure Dru Kinga DO Work Phone: [facility] Start: 12-29-2023 End: 12-29-2023 Periodic preventive med est patient 40-64yrs Dru Kinga DO Work Phone: [facility] Comment on above: Postmenopausal state [...] 01-02-2023 End: 01-02-2023 ambulatory Diamond Calvey Other [facility] Other Start: 01-02-2023 Office outpatient vi sit 15 minutes Diamond Calvey [facility] Start: 09-23-2022 End: 09-23-2022 ambulatory Diamond Calvey Other [facility] Other Start: 09-23-2022 Office outpatient vi sit 15 minutes Diamond Calvey [facility] Start: 09-02-2022 End: 09-02-2022 ambulatory Diamond Calvey Other [facility] Other Start: 09-02-2022 Office outpatient vi sit 15 minutes Diamond Calvey [facility] Start: 07-08-2022 End: 07-08-2022 ambulatory Diamond Calvey Other [facility] Other Start: 07-08-2022 Office outpatient vi sit 15 minutes Diamond Calvey [facility] Start: 06-03-2022 Office outpatient vi sit 15 minutes Diamond Case [facility] Start: 06-03-2022 End: 06-03-2022 ambulatory Diamond Case Facility:[facility] Start: 06-03-2022 End: 06-03-2022 ambulatory MD Diamond Case Work Phone: [facility] Work Phone: Start: 06-03-2022 End: 06-03-2022 Patient encounter procedure MD Diamond Case Work Phone: [facility] Start: 05-16-2022 End: 05-17-[address] GABBY DEE . Facility:[facility] Start: 05-14-2022 End: 05-22-[address] GABBY DEE . Facility:[facility] Start: 05-07-2022 End: 05-08-2022 ambulatory Morris CAGLE Facility:[id number] Start: 05-06-2022 End: 05-06-2022 ambulatory Diamond Case Other [facility] Other Start: 05-06-2022 Office outpatient ne w 30 minutes Diamond Case [facility] Start: 04-08-2022 End: 04-09-2022 ambulatory Morris CAGLE Facility:[facility] Start: 04-08-2022 End: 04-08-2022 Patient encounter procedure Morris CAGLE [facility] Start: 03-16-[address] GABBY DEE . Facili ty:[facility] Start: 02-26-2022 End: 02-26-[address] GABBY DEE . Facility:[facility] Start: 01-01-2022 End: 01-31-[address] GABBY DEE . Facility:[facility] Start: 12-16-2021 Encounter for genera l adult medical examination without abnormal findings DR GABBY DEE . [facility] Start: 12-13-2021 End: 12-14-[address] GABBY DEE . Facility: Start: 12-13-2021 End: 12-14-2021 Encounter for general [...] GDLN Dru Kinga DO Work Phone: Start: 12-29-2023 Microscopic observat ion [Identifier] in Cervix by Cyto stain Dru Kinga DO Work Phone: Start: 11-18-2023 Mammography Dru Fazi o DO Work Phone: Start: 06-03-2022 Plain X-ray of left hand MD Diamond Case Work Phone: Start: 05-27-2021 Microscopic observat ion [Identifier] in Cervix by Cyto stain Dru Kinga DO Work Phone: Start: 03-27-2021 Colonoscopy Dru Fazi o DO Work Phone: Start: 03-27-2021 Colonoscopy Morris NI LL Complete obstruction of lacrimal canaliculus (disorder) Morris NILL Fasciotomy of foot Morris N ILL Comment on above: bilateral Ganglion cyst of rig ht foot Morris NILL Plan of Treatment Date Care Activity Detail Author Start: 03-27-2031 Screening for malignant neoplasm of colon [facility] Start: 12-28-2026 Screening for malignant neoplasm of cervix Pap Smear [facility] Start: 05-27-2026 Screening for malignant neoplasm of cervix [facility] Start: 01-03-2025 End: 01-03-2025 Patient encounter procedure 01/03/2025 9:00 AM EDT Office Visit [facility] [address] [place] [address] Dru Donato, DO [address] [place] [address] [facility] Start: 11-17-2024 Screening for malignant neoplasm of breast Mammogram [facility] Start: 12-29-2023 End: 12-28-2024 DXA Skeletal system Views for bone density DEXA bone density Imaging Routine Postmenopausal state Expected: 12/29/2023 (Approximate), Expires: 12/28/2024 [facility] Work Phone: Comment on above: Expected: 12/29/2023 (Approximate), Expires: 12/28/2024 Start: 11-15-2023 Influenza vaccination Influenza Vacc ine (#1) [facility] Start: 1970 Screening for malignant neoplasm of colon [facility] THIN PREP TIS PAP AN D HR HPV DNA THIN PREP TIS PAP AND HR HPV DNA Pathology and Cytology Routine Well woman exam with routine gynecological exam Ordered: 12/29/2023 [facility] Comment on above: Ordered: 12/29/2023 Immunizations Immunization Date Immunization Notes Care Provider Preet shields 12-14-2021 influenza virus vaccine, unspecified formulation Morris CAGLE [facility] 01-18-2021 influenza virus vaccine, unspecified formulation Dru Donato DO Work Phone: [facility] 04-30-2020 SARS-CoV-2 (COVID-19 ) Ad26 vaccine, recombinant Morris NILL [facility] 04-02-2020 SARS-CoV-2 (COVID-19 ) Ad26 vaccine, recombinant Morris NILL [facility] Payers Date Payer Category Payer Self-pay 2022 [facility] BCBS [id number] 2022 Unknown [id number] 2019 Unknown [id number] 1970 Unknown [id number] 2.16.840.1.434923.3.579.2. 727 1970 Unknown [id number] 2.16.840.1.464407.3.579.2. 727 1970 Unknown [id number] 2.16.840.1.129692.3.579.2. 593 1970 Unknown [id number] 2.16.840.1.845534.3.579.2. 593 1970 Unknown [id number] 2.16.840.1.094945.3.579.2. 593 1970 Unknown [id number] 2.16.840.1.616203.3.579.2. 593 1970 Unknown [id number] 2.16.840.1.658246.3.579.2. 593 1970 Unknown [id number] 2.16.840.1.917032.3.579.2. 593 1970 Unknown [id number] 2.16.840.1.583946.3.579.2. 593 1970 Unknown [id number] 2.16.840.1.860652.3.579.2. 593 1970 Unknown [id number] 2.16.840.1.234960.3.579.2. 593 1970 Unknown [id number] 2.16.840.1.622839.3.579.2. 593 1970 Unknown [id number] 2.16.840.1.878977.3.579.2. 593 1970 Unknown [id number] 2.16.840.1.405173.3.579.2. 1259 1959 Self-pay [id number] Unknown [id number] 2.16.840.1.690277.3.579.2. 531 Social History Date Type Detail Facility Start: 04-08-2022 End: 12-12-2022 Tobacco smoking status Never smoked tobacco (finding) [facility] Tobacco smoking status Never [facility] Start: 12-23-2022 End: 12-29-2023 Sex Assigned At Female [facility] Start: 1970 Sex Assigned At Female [facility] Start: 12-23-2022 End: 12-29-2023 Alcoholic beverage intake Current drinker of alcohol (finding) [facility] Start: 12-23-2022 End: 12-29-2023 History of Social function [facility] Start: 12-12-2022 Alcohol Comment Alcohol: 1 or 2 drinks on a typical day/monthly or less Caffeine: 2-3 cups/day [facility] Start: 09-03-2022 Gender identity Identifies as female gender (finding) [facility] Functional Status Date Assessment Result Facility 04-08-2022 Functional Status N/A General Laws [facility] Clinical Notes 12-07-2021 to 02-15-2024 Matilda Liang LPN - 02/15/2024 8:10 AM Cole Mathew LPN - 12/29/2023 3:00 PM EDT Note Date & Type Note Facility 02-15-2024 History of Presen t illness Narrative Reason for Appointment: Patient ID: Theresa Reyes is a 53 y.o. female who presents for Results (TeleHealth appointment for DEXA Scan results) Patient presents today via telephone call for a telehealth appointment. Patients Phone #: [phone] (mobile) Current Medications: currently has no medications in their medication list. Medical History: Active Ambulatory Problems Diagnosis Date Noted No Active Ambulatory Problems Resolved Ambulatory Problems Diagnosis Date Noted No Resolved Ambulatory Problems Past Medical History: Diagnosis Date Arthralgia Asthma (CMS/HCC) Headache Hypercholesterolemia (CMS/HCC) Visit for screening mammogram 2016 Family History Problem Relation Name Age of Onset Diabetes Maternal Grandmother Hypertension Maternal Grandmother Ovarian cancer Maternal Grandmother Heart disease Paternal Grandmother Diabetes Paternal Grandmother Hypertension Paternal Grandmother Heart disease Paternal Grandfather Social History Tobacco Use Smoking status: Never Smokeless tobacco: Not on file Substance Use Topics Alcohol use: Yes Comment: Alcohol: 1 or 2 drinks on a typical day/monthly or less Caffeine: 2-3 cups/day Drug use: Not on file Past Surgical History: Procedure Laterality Date CERVICAL SPINE SURGERY 05/2023 EYE SURGERY FOOT SURGERY No Known Allergies Vitals: Estimated body mass index is 30.23 kg/m as calculated from the following: Height as of 12/29/23: 5' 7 . Weight as of 12/29/23: 193 lb. BP: No LMP recorded. Patient is postmenopausal. Assessment/Plan Provider called patient to discuss Dexa Scan results and plan of care. Discussed management for Osteopenia as far as weight bearing exercises, Vitamin D & Calcium daily or prescription Fosamax. Patient will start Calcium 1200mg and Vitamin D 800 I.U. Patient will repeat Dexa Scan in 1 year to check stability. Today's telehealth visit consisted of spending 7 minutes talking to patient on the phone. Documented by Matilda Liang LPN on behalf of: Dru Donato DO documented in this encounter [facility] 12-29-2023 History of Presen t illness Narrative Reason for Appointment: Patient ID: Theresa Reyes is a 53 y.o. female who presents for [employer] Visit Patient presents today for Annual Exam. MEDICATIONS No current outpatient medications ALLERGIES No Known Allergies PROBLEMS Active Ambulatory Problems Diagnosis Date Noted No Active Ambulatory Problems Resolved Ambulatory Problems Diagnosis Date Noted No Resolved Ambulatory Problems Past Medical History: Diagnosis Date Arthralgia Asthma (CMS/HCC) Headache Hypercholesterolemia (CMS/HCC) Visit for screening mammogram 2017 HISTORY PAST MEDICAL HISTORY SOCIAL HISTORY Past Medical History: Diagnosis Date Arthralgia Asthma ([facility]) Headache Hypercholesterolemia ([facility]) Visit for screening mammogram 2017 neg Social [...] nursing note reviewed. Exam conducted with a electrical controls designer present. Vitals: Estimated body mass index is [...] Donato DO documented in this encounter [facility] 01-02-2023 Evaluation note Encounter Date Diagnosis [...] well as cortisone injection and surgical release. [facility] Other 07-11-2023 Evaluation note* Encounter Date Diagnosis [...] Left hand pain (ICD- 10 - M79.642) [facility] Other 06-20-2023 Evaluation note* Encounter Date Diagnosis [...] joint of left hand (ICD-10 - M18.12) [facility] Other 2023 Evaluation note* Encounter Date Diagnosis [...] joint of left hand (ICD-10 - M18.12) [facility] Other 03-21-2023 Evaluation note* Encounter Date Diagnosis [...] and tingle for hours after this injection. [facility] Other 03-04-2023 NotePROCEDURE: XR FOOT RT MIN [...] Electronically authenticated by: AL CAMPOS Date: 2022-05-17 12:06[facility]02-22-2023 NoteOPERATIVE NOTE OPERATION DATE: 05/07/2022 [...] in good condition. CC: Gabby Dee M.D.[facility] [id number] NoteOPERATIVE NOTE OPERATION DATE: 05/07/2022 ADDENDUM: The distal rectal 4 mm irregular flat polyp was removed with hot snare with good hemostasis, not with cold biopsy forceps.[facility] 05-06-2022 Evaluation note* Encounter Date Diagnosis [...] Apr, Right hand pain (ICD-10 - M79.641) [facility] Other 09-24-2022 NotePROCEDURE: XR SHOULDER LT 2V or > COMPARISON: None. HISTORY: Impingement syndrome of shoulder region FINDINGS: BONES:No fracture, acute abnormality, or significant arthropathy. SOFT TISSUES:Negative. No visible soft tissue swelling. EFFUSION:None visible. OTHER: Negative. IMPRESSION: No acute disease. Electronically authenticated by: AL CAMPOS Date: 2021-12-07 19:36[facility] + Plan note No data available for this section [facility] Evaluation noteNo assessment information available [facility] Work Phone: Evaluation note* Diagnosis Postmenopausal state Asymptomatic postmenopausal status (age-related) (natural) Well woman exam with routine gynecological exam Routine gynecological examination documented in this encounter [facility] HealthcareEvaluation note* Diagnosis Osteopenia, unspecified location documented in this encounter [facility] HealthcareHistory general Narrative - Reported* Type Description Date Medical History high cholesterol Surgical History Foot Surgery Surgical History clogged tear duct [facility] Other Hospital Discharge instructions No data available for this section [facility] Progress note No data available for this section [facility] Summary Purpose Family History No Family History [...] Dates Diamond Case MD Attending Provider Active [employer] Relationship Specialty Start Date End Date Gabby Dee MD [address] [place] [address] PCP - General Family Medicine 12/23/22 [employer] Relationship Specialty Start Date End Date Gabby Dee MD [address] [place] [address] PCP - General Family Medicine 12/23/22 [employer] Relationship Specialty Start Date End Date Gabby Dee MD [address] [place] [address] PCP - General Family Medicine 12/23/22 [employer] Relationship Specialty Start Date End Date Gabby Dee MD [address] [place] [address] PCP - General Family Medicine 12/23/22 INFORMATION SOURCE (unrecogn ized section and content) DATE CREATED AUTHOR 05/16/2022 [facility] DATE CREATED AUTHOR AUTHOR'S ORGANIZ ATION 06/18/2022 [facility] DATE CREATED AUTHOR AUTHOR'S ORGANIZ ATION 06/21/2022 [facility] DATE CREATED AUTHOR AUTHOR'S ORGANIZ ATION 12/31/2023 [facility] EPIC REASON FOR VISIT (unrecogniz ed section and content) Reason Comments Well Women Visit Reason Comments Results TeleHealth appointme nt for DEXA Scan results Goals (unrecognized section and content) Goals may [...] BE BASED ON THE PRIMARY CLINICAL RECORDS. [facility] [employer] [facility]. provides no warranty or guarantee of the accuracy or completeness of information in this document.
== END 2024-05-27 10:49 | disposition home or self-care (01) ==
LOC: US 10:48
PROVIDERS: Visit Provider Obstetrics & Gynecology
DX: R10.2 Pelvic and perineal pain (principal)
CPT/HCPCS: 76830; 76856

== ENCOUNTER 2024-06-03 08:36 | Outpatient (OUT) | payer BC, SELFPAY ==
--- NOTE | 2024-06-03 | XR_ITS ---
[address] [address] Patient Name: THERESA JOSHUA MRN: [id number] date: 1970 Sex: F Assigned Patient Location: Current Patient Location: Accession/Order Number: [id number] Exam Date: 06/03/2024 10:03 Report Date: 06/03/2024 10:03 At the request of: KRAIG ANG MD Procedure: XR cervical spine 5V CERVICAL SPINE 4 views: CLINICAL HISTORY: Follow-up spine surgery. COMPARISON: Cervical spine 12/04/2023 FINDINGS: Anterior fusion hardware C3-C6 without hardware complication. Vertebral body heights appear maintained. No pathologic motion. No prevertebral soft tissue swelling. Mild spondylosis C6-7. XR/XR cervical spine 5V IMPRESSION: NO HARDWARE COMPLICATION. Impression dictated by: Juan Ramon Moon Jr., D.O.06/03/2024 10:03 AM Dictation Location: [place] [address] Electronically authenticated by: [id number] Y Date: 06/03/2024 10:03
--- OUTSIDE RECORDS SUMMARY | 2024-06-03 08:42 | XMS_ITS | CCD ---
Author Organization [facility] Care Team Providers Care Copy Technician Name Role Phone Gabby Dee Primary Care Physician [phone] Morris CAGLE Attending Unavailable Morris CAGLE Attending [...] PIERRE Primary Care Unavailable HOY ., DR IPERRE Consulting Unavailable HOY ., DR PIERRE Admitting Unavailable ROBERTS, DR AL Shaikh Consulting Unavailable HOY ., [...] Unavailable HOY ., DR PIERRE Consulting Unavailable ROBERTS, DR AL Shaikh Consulting Unavailable HOY ., DR PIERRE Admitting Unavailable HOY ., DR PIERRE Attending Unavailable HOY ., DR PIERRE Primary Care Unavailable Gabby Dee MD Primary Care Provider [phone] DRU DONATO Attending Unavailable Allergies Allergy Classification Reported Allergen(s) Allergy Type Date of Onset Reaction(s) Facility (1 source) No Known Medication Allergies; Translations: [No Known Medication Allergies] Propensity to adverse reactions (disorder) [facility] Repository (2 sources) Baclofen Drug Allergy [facility] Repository Medications Current Medications Medication Drug [...] GDLNon AGE GDLN ACOG TESTING Note . [facility] Comment on above: TESTS RESULT FLAG UN ITS REF RANGE LAB Clinician Provided Cytology Information Source.............Cervix;Endocervix No. of containers..01 ThinPrep Vial Age Algo ACOG Sheila... 30-65 01 FLAG LEGEND: L-Low Normal,H-High Normal,LL-Alert Low,HH-Alert High <-Panic Low,>-Panic High,A-Abnormal,AA-Critical Abnormal Performed at: 01 =G [facility] [place] [address] Sharmaine Hall MD, HPV APTIMA Negative Negative [facility] e Comment on above: This nucleic acid am plification test detects fourteen high- risk HPV types (16,18,31,33,35,39,45,51,52,56,58,59,66,68) without differentiation. Performed at: =G - [facility] [id number] Coat Presser: Sharmaine Hall MD, Phone: [phone] Performed at: - [facility] [id number] Coat Presser: Sharmaine Hall MD, Phone: [phone] IGP, APTIMA HPV, RFX 16/18,45 Note . [facility] Comment on above: TESTS RESULT FLAG U NITS REF RANGE LAB DIAGNOSIS: 02 NEGATIVE FOR INTRAEPITHELIAL LESION OR MALIGNANCY. Specimen adequacy: 02 Satisfactory for evaluation. Endocervical and/or squamous metaplastic cells (endocervical component) are present. Performed by: Mandy Luis, Paper Guillotine Operator (ASCP) . 02 Note: Note 02 The [...] <-Panic Low,>-Panic High,A-Abnormal,AA-Critical Abnormal Performed at: [address] [address] Sharmaine Hall MD, BRUSH-SPATULA CERVIX ENDOCERVIX [facility] XR hand LT min 3V*on 023 XR hand LT min 3V* [address] [address] XRay Report Signed Patient: Theresa Reyes MR#: [id number] : 1970 Acct:[id number] Age/Sex: 52 / F ADM Date: 06/03/22 Loc: [facility] Room: Type: [facility] Attending Dr: Diamond Case MD Copies [...] Miguel Ramey M.D.06/03/2022 1:11 PM Dictation Location: [place] [address] Transcribed By: [facility] 06/03/22 1311 Dictated By: Miguel Ramey II, MD 06/03/22 1310 Signed By: 06/03/22 131 Normal [facility] XR hand LT min 3V* [facility] Other XR hand LT min 3V* [facility] Other XR hand LT min 3V* [address] [facility] Other XR hand LT min 3V* YULIANA oDshi [address] [facility] Other XR hand LT min 3V* XRay Report [facility] Other XR hand LT min 3V* Signed [facility] Other XR hand LT min 3V* Patient: Theresa Reyes MR#: [id number] [facility] Other XR hand LT min 3V* [id number] [facility] [employer] Other XR hand LT min 3V* : 1970 Acct:[id number] [facility] [employer] Other XR hand LT min 3V* Age/Sex: 52 / F ADM Date: 06/03/22 [facility] Other XR hand LT min 3V* Loc: [facility] Room: Type : REG CLI [facility] Other XR hand LT min 3V* Attending Dr: Benny Case MD [facility] Other XR hand LT min 3V* Copies to: Diamond Case MD [facility] Other XR hand LT min 3V* Ordering Provider: Diamond Case MD [facility] Other XR hand LT min 3V* Date of Service: 06/03/22 [facility] Other XR hand LT min 3V* XR/XR hand LT min 3V*: PAIN [facility] Other XR hand LT min 3V* XR hand LT min 3V* 06/03/2022 8:44 AM [facility] Other XR hand LT min 3V* SIGNS AND SYMPTOMS: Left thumb/first metacarpal pain [facility] Other XR hand LT min 3V* PROTOCOL: Frontal, lateral, and oblique radiographs of the left hand: [facility] Other XR hand LT min 3V* COMPARISON: None [facility] Other XR hand LT min 3V* FINDINGS: [facility] Other XR hand LT min 3V* The bones are in anatomic alignment. There is mild degenerative change at the first carpometacarpal [employer] Other XR hand LT min 3V* junction. There is preservation of the joint spaces, otherwise. There is no fracture or dislocation. [facility] [facility] Other XR hand LT min 3V* No significant soft tissue swelling. [facility] Other XR hand LT min 3V* XR/XR hand LT min 3V* [employer] Other XR hand LT min 3V* IMPRESSION: [facility] Other XR hand LT min 3V* No acute bony injury. [facility] Other XR hand LT min 3V* Mild degenerative fa cet noted at the base of the thumb. [employer] Other XR hand LT min 3V* Impression dictated by: Miguel Ramey M.D.06/03/2022 1:11 PM [place] G[facility] Other XR hand LT min 3V* Dictation Location: [place] [address] [facility] Other XR hand LT min 3V* Transcribed By: KARRIE 06/03/22 [facility] Other XR hand LT min 3V* Dictated By: Miguel Ramey II, MD 06/03/[address] [place] [address] G3 Other XR hand LT min 3V* Signed By: [facility] Other XR hand LT min 3V* 06/03/[address] [place] [address] G3 Other Reminderson 05-15-2022 Reminders - From: Jessica Mims LPN To: N - Clinical; Sent: 05/15/2022 07:57:39 EST Show up: 04/06/2025 07:00:00 EST Subject: colonoscopy recall Due Date/Time: 05/07/2025 07:00:00 EST Reminder/Recall Patient is due for colonoscopy 05/07/2025 due to history of tubulovillous adenoma. Normal [facility] Pathology Noteon 05-09-2022 Pathology Note [id number]#1.00CD :127 Normal [facility] Outside Colonoscopyon 2022 Outside Colonoscopy [id number]#1.00C D:127 Normal [facility] PREG HCG QUALon 05-07-2022 , QUAL Negative Normal NEGATIVE [facility] Comment on above: Performed By: #### P REG #### [facility] [address] [place] [address] Dr. Hu Can Pre-Certification Formon Pre-Certification Form [id number]#1.00 CD:127 Normal [facility] Consent for Procedure/Surger yon 04-10-2022 Consent for Procedure/Surgery [id number]#1.00C D:127 Normal [facility] Facesheeton 04-10-2022 Facesheet [id number]#1.00C D:127 Normal [facility] General Surgery Office/Clini c Noteon 04-08-2022 [...] (COVID-19) Ad26 vaccine 04/02/2020 Recorded Normal [facility] Comment on above: Result Comment: Elec tronically Signed By: JEFF PONCE, Morris R\.br\Date and Time Signed: 04/08/22 15:33 EST Covid-19 PCR (CVDTBH)on 02-13 SARS-CoV-2 (COVID-19) RNA CLARISSA+probe Ql (Unsp spec) Not detected Normal NOT DETECTED [facility] Comment on above: Result Comment: When [...] for this test is supported by the [place] Manager of Health and Human Service's declaration [...] used). Performed By: #### C VDTBH #### [facility] [address] [place] [address] Dr. Hu Can INFLUENZA A AND B AGon 02-[facility] Normal [facility] Comment on above: Result Comment: Nega tive for Flu A protein angiten. Infection due to Flu A cannot be ruled out. Flu A angiten in the sample may be below the detection limit of the test. Performed By: #### I NFLUAB #### [facility] [address] [place] [address] Dr. [facility] Normal [facility] Comment on above: Result Comment: Nega tive for Flu B protein antigen. Infection due to Flu B cannot be ruled out. Flu B antigen in the sample may be below the detection limit of the test. Performed By: #### I NFLUAB #### [facility] [address] [place] [address] Dr. Hu Can INFLUENZA A AG Negative Normal NEGATIVE SEE COMMENT [facility] Comment on above: Performed By: #### I NFLUAB #### [facility] [address] [place] [address] Dr. Hu Can INFLUENZA B AG Negative Normal NEGATIVE SEE COMMENT [facility] Comment on above: Performed By: #### I NFLUAB #### [facility] [address] [place] [address] Dr. Hu Can INTERNAL CONTROLS Within Normal Limits Normal Wi thin Normal Limits [facility] Comment on above: Performed By: #### I NFLUAB #### [facility] [address] [place] [address] Dr. Hu Can CBC AUTO DIFFon 12-13-2021 BASO # 0.0 103/ul Normal 0.0-0.1 [facility] Comment on above: Performed By: #### C BC #### [facility] [address] [place] [address] Dr. Hu Can Basophils/100 WBC (Bld) 0.3 % Normal 0.2-2.0 [facility] Comment on above: Performed By: #### C BC #### [facility] [address] [place] [address] Dr. Hu Can EO # 0.1 103/ul Normal 0.0-0.7 [facility] Comment on above: Performed By: #### C BC #### [facility] [address] [place] [address] Dr. Hu Can Eosinophils/100 WBC (Bld) 1.1 % Normal 0.9-7.0 [facility] Comment on above: Performed By: #### C BC #### [facility] [address] [place] [address] Dr. Hu Can Erythrocyte distribution width (RBC) [Ratio] 13.7 % Normal 11.0-15.0 [facility] Comment on above: Performed By: #### C BC #### [facility] [address] [place] [address] Dr. Hu Can Hematocrit (Bld) [Volume fraction] 44.6 % Normal 36.0-48.0 [facility] Comment on above: Performed By: #### C BC #### [facility] [address] [place] [address] Dr. Hu Can Hemoglobin (Bld) [Mass/Vol] 14.5 g/dL Normal 12.0-16.0 [facility] Comment on above: Performed By: #### C BC #### [facility] [address] [place] [address] Dr. Hu Can IG # 0.02 10e3/ul Normal 0.00-0.03 [facility] Comment on above: Performed By: #### C BC #### [facility] [address] [place] [address] Dr. uH Can IG % 0.3 % Normal 0.0-0.5 [facility] Comment on above: Performed By: #### C BC #### [facility] [address] [place] [address] Dr. Hu Can LYMPH # 2.3 103/ul Normal 1.2-3.8 [facility] Comment on above: Performed By: #### C BC #### [facility] [address] [place] [address] Dr. Hu Can Lymphocytes/100 WBC (Bld) 30.5 % Normal 20.5-60.0 [facility] Comment on above: Performed By: #### C BC #### [facility] [address] [place] [address] Dr. Hu Can MANUAL DIFF REQ NO Normal [facility] Comment on above: Performed By: #### C BC #### [facility] [address] [place] [address] Dr. Hu Can MCH (RBC) [Entitic mass] 29.1 pg Normal 26.7-34.0 [facility] Comment on above: Performed By: #### C BC #### [facility] [address] [place] [address] Dr. Hu Can MCHC (RBC) [Mass/Vol] 32.5 g/dL Normal 29.9-35.2 [facility] Comment on above: Performed By: #### C BC #### [facility] [address] [id number] Hu Can MCV (RBC) [Entitic vol] 89.6 fL Normal 81.0-99.0 [facility] Comment on above: Performed By: #### C BC #### [facility] [address] [place] [address] [address] Hu Can MONO # 0.5 103/ul Normal 0.3-0.8 [facility] Comment on above: Performed By: #### C BC #### [facility] [address] [place] [address] Dr. Hu Can Monocytes/100 WBC (Bld) 6.8 % Normal 1.7-12.0 [facility] Comment on above: Performed By: #### C BC #### [facility] [address] [place] [address] Dr. Hu Can NEUT # 4.6 103/ul Normal 1.4-6.5 [facility] Comment on above: Performed By: #### C BC #### [facility] [address] [place] [address] Dr. Hu Can Neutrophils/100 WBC (Bld) 61.0 % Normal 43.0-75.0 [facility] Comment on above: Performed By: #### C BC #### [facility] [address] [place] [address] Dr. Hu Can Platelet mean volume (Bld) [Entitic vol] 9.3 fL Critically low 9.5-13.5 [facility] Comment on above: Performed By: #### C BC #### [facility] [address] [place] [address] Dr. Hu Can PLT 296 103/ul Normal 150-450 [facility] Comment on above: Performed By: #### C BC #### [facility] [address] [place] [address] Dr. Hu Can RBC 4.98 106/ul Normal 4.20-5.40 [facility] Comment on above: Performed By: #### C BC #### [facility] [address] [place] [address] Dr. Hu Can WBC 7.5 103/ul Normal 4.0-11.0 [facility] Comment on above: Performed By: #### C BC #### [facility] [address] [place] [address] [address] Hu Can GLYCOHEMOGLOBIN A1Con 2021 ADA RECOMMENDATION SEE BELOW Normal [facility] Comment on above: Result Comment: ADA RECOMMENDED LIMIT 4.0 - 6.0 ADA THERAPEUTIC TARGET < 7.0 ACTION SUGGESTED > 7.0 Performed By: #### A 1C #### [facility] [address] [place] [address] [address] Hu Can Glucose [Mass/Vol] 114 mg/dL Normal [facility] Comment on above: Performed By: #### A 1C #### [facility] [address] [place] [address] [address] Hu Can HbA1c (Bld) [Mass fraction] 5.6 % Normal 4.5-6.2 [facility] Comment on above: Performed By: #### A 1C #### [facility] [address] [place] [address] [address] Hu Can LIPID PROFILEon 12-13-2021 CHOL-HDL RATIO NORM SEE BELOW Normal [facility] Comment on above: Result Comment: 3.3 - 4.4 LOW RISK 4.4 - 7.1 AVERAGE RISK 7.1 - 11.0 MODERATE RISK >11.0 HIGH RISK Performed By: #### T SH, CMP, LIPID ####[facility] [address] [place] [address]Dr. Hu Can Cholesterol [Mass/Vol] 279 mg/dL Critically high <=200 [facility] Comment on above: Performed By: #### T SH, CMP, LIPID ####[facility] [address] [place] [id number]. Hu Can Cholesterol in HDL [Mass/Vol] 50 mg/dL Normal 40-60 [facility] Comment on above: Performed By: #### T SH, CMP, LIPID ####[facility] [address] [place] [address]Dr. Hu Can Cholesterol in LDL [Mass/Vol] 197.8 mg/dL Normal [facility] Comment on above: Performed By: #### T SH, CMP, LIPID ####[facility] [address] [place] [address]Dr. Hu Can Cholesterol.total/ Cholesterol in HDL [Mass ratio] 5.6 {ratio} Normal [facility] Comment on above: Performed By: #### T SH, CMP, LIPID ####[facility] [address] [place] [address]Dr. Hu Can HDL NORMAL > or = 60 mg/dl - LO W CARDIOVASCULAR RISK <40 mg/dl - HIGH CARDIOVASCULAR RISK Normal [facility] Comment on above: Performed By: #### T SH, CMP, LIPID ####[facility] [address] [place] [address]Dr. Hu Can LDL CALC NORMAL SEE BELOW Normal [facility] Comment on above: Result Comment: <100 mg/dl OPTIMAL 100 - 129 mg/dl NEAR OR ABOVE OPTIMAL 130 - 159 mg/dl BORDERLINE HIGH 160 - 189 mg/dl HIGH >190 mg/dl VERY HIGH Performed By: #### T SH, CMP, LIPID ####[facility] [address] [place] [address]Dr. Hu Can Triglyceride [Mass/Vol] 156 mg/dL Critically high <=150 [facility] Comment on above: Performed By: #### T SH, CMP, LIPID ####[facility] [address] [place] [address]Dr. Hu Can VLDL CALC 31.2 mg/dL Normal [facility] Comment on above: Performed By: #### T SH, CMP, LIPID ####[facility] [address] [place] [address]Dr. Hu Can PROF 14(COMP METB)on 022 Albumin [Mass/Vol] 3.8 g/dL Normal 3.4-5.0 [facility] Comment on above: Performed By: #### T SH, CMP, LIPID ####[facility] [address] [place] [address]Dr. Hu Can Albumin/Globulin [Mass ratio] 1.2 {ratio} Normal [facility] Comment on above: Performed By: #### T SH, CMP, LIPID ####[facility] [address] [place] [address]Dr. Hu Can ALP [Catalytic activity/Vol] 74 U/L Normal 46-116 [facility] Comment on above: Performed By: #### T SH, CMP, LIPID ####[facility] [address] [place] [address]Dr. Hu Juan José ALT [Catalytic activity/Vol] 19 U/L Normal 14-59 [facility] Comment on above: Performed By: #### T SH, CMP, LIPID ####[facility] [address] [place] [address]Dr. Hu Can Anion gap [Moles/Vol] 11.0 mmol/L Normal [facility] Comment on above: Performed By: #### T SH, CMP, LIPID ####[facility] [address] [place], [place] [address]Dr. Hu Juan José AST [Catalytic activity/Vol] 12 U/L Critically low 15-37 [facility] Comment on above: Performed By: #### T SH, CMP, LIPID ####[facility] [address] [place], [place] [address]Dr. Hu Juan José Bilirubin [Mass/Vol] 0.7 mg/dL Normal 0.2-1.0 [facility] Comment on above: Performed By: #### T SH, CMP, LIPID ####[facility] [address] [place] [address]Dr. Hu Juan José Calcium [Mass/Vol] 8.7 mg/dL Normal 8.5-10.1 [facility] Comment on above: Performed By: #### T SH, CMP, LIPID ####[facility] [address] [place] [address]Dr. Hu Can Chloride [Moles/Vol] 102 mmol/L Normal 98-107 [facility] Comment on above: Performed By: #### T SH, CMP, LIPID ####[facility] [address] [place] [address]Dr. Hu Can CO2 [Moles/Vol] 28.2 mmol/L Normal 21.0-32.0 [facility] Comment on above: Performed By: #### T SH, CMP, LIPID ####[facility] [address] [place] [address]Dr. Hu Can Creatinine [Mass/Vol] 0.91 mg/dL Normal 0.55-1.02 [facility] Comment on above: Performed By: #### T SH, CMP, LIPID ####[facility] [address] [place] [address]Dr. Hu Can EGFR-AF CHINESE >60 Normal >=60 [facility] Comment on above: Performed By: #### T SH, CMP, LIPID ####[facility] [address] [place] [address]Dr. Hu Can EGFR-NON AF CHINESE >60 Normal >=60 [facility] Comment on above: Performed By: #### T SH, CMP, LIPID ####[facility] [address] [place] [address]Dr. Hu Can Globulin (S) [Mass/Vol] 3.3 g/dL Normal [facility] Comment on above: Performed By: #### T SH, CMP, LIPID ####[facility] [address] [place] [address]Dr. Hu Can Glucose [Mass/Vol] 105 mg/dL Normal 74-106 [facility] Comment on above: Performed By: #### T SH, CMP, LIPID ####[facility] [address] [place] [address]Dr. Hu Can Potassium [Moles/Vol] 4.2 mmol/L Normal 3.5-5.1 [facility] Comment on above: Performed By: #### T SH, CMP, LIPID ####[facility] [address] [place] [address]Dr. Hu Can Protein [Mass/Vol] 7.1 g/dL Normal 6.4-8.2 [facility] Comment on above: Performed By: #### T SH, CMP, LIPID ####[facility] [address] [place] [address]Dr. Hu Can Sodium [Moles/Vol] 137 mmol/L Normal 136-145 [facility] Comment on above: Performed By: #### T SH, CMP, LIPID ####[facility] [address] [place] [address]Dr. Hu Can Urea nitrogen [Mass/Vol] 23.0 mg/dL Critically high 7.0-18.0 [facility] Comment on above: Performed By: #### T SH, CMP, LIPID ####[facility] [address] [place] [id number]. Hu Can Urea nitrogen/Creatinin e [Mass ratio] 25.3 mg/mg Normal [facility] Comment on above: Performed By: #### T SH, CMP, LIPID ####[facility] [address] [place] [address]Dr. Hu Can TSHon 12-13-2021 TSH 1.249 uIU/mL Normal 0.358-3.740 [facility] Comment on above: Performed By: #### T SH, CMP, LIPID ####[facility] [address] [place] [address]Dr. Hu Can XR CSPINE MIN 4 VIEWSon [...] AL CAMPOS Date: 2021-12-07 19:38 Normal [facility] MG MAMM SCREEN 3D HIEU CADon 10-28-2021 MG MAMM SCREEN 3D HIEU CAD Patient: THERESA REYES Exam Date: 10/28/2021 : 1970 Gender:F Ordering : DR GABBY DEE . Admission #: [id number] Family : Order #: [id number] CLICK HERE TO VIEW EXAM RADIOLOGY REPORT [...] ovarian cancer at age 80. LOCATION: [facility] BREAST COMPOSITION: Scattered areas fibroglandular density. [...] M.D. on 10/28/2021 at 12:02 Normal [facility] Covid-19 PCR (CVDTB)on 09-15 SARS-CoV-2 (COVID-19) RNA CLARISSA+probe Ql (Unsp spec) Not detected Normal NOT DETECTED [facility] Comment on above: Result Comment: When [...] for this test is supported by the [place] of Health and Human Service's declaration that [...] used). Performed By: #### C VDTB #### [facility] [address] [place], [place] [address] Dr. Hu Can Covid-19 PCR ([facility])on 09-14 SARS-CoV-2 (COVID-19) RNA CLARISSA+probe Ql (Unsp spec) Detected Critically abnormal NOT DETECTED [facility] Comment on above: Result Comment: This test is not yet approved or cleared by the [place] FDA. When there are no FDA-approved or cleared tests available, and other criteria are met, FDA can make tests available under an emergency access mechanism called an Emergency Use Authorization (EUA). The EUA for this test is supported by the [place] of Health and Human Service's declaration that [...] be used). Performed By: #### C VDTB ####[facility] [address] [place], [place] [address]UgDr. Hu Can Pathology Noteon 07-12-2021 Pathology Note [id number] D:127 Normal [facility] Vital Signs Date Time Vital Sign Value Performing Clinician Facility 12-29-2023 15:39-0400 Body height 170.2 cm [facility] Work Phone: [facility] 12-29-2023 15:39-0400 Body mass index (BMI) [Ratio] 30.23 kg/m2 [facility] Work Phone: [facility] 12-29-2023 15:39-0400 Body weight 87.54 kg [facility] Work Phone: [facility] 12-29-2023 15:39-0400 Diastolic blood pressure 82 mm[Hg] Dru Kinga DO Work Phone: [facility] 12-29-2023 15:39-0400 Systolic blood pressure 134 mm[Hg] Dru Kinga DO Work Phone: [facility] 09-02-2022 09:30-0400 Body height 170.18 cm [facility] Other [facility] Other 09-02-2022 09:30-0400 Body mass index (BMI) [Ratio] 30.85 kg/m2 [employer] Other [facility] Other 09-02-2022 09:30-0400 Body weight 89.36 kg Diamondgiorgi Case Other [facility] Other 04-08-2022 15:14-0500 Blood Pressure Location [facility] 04-08-2022 15:14-0500 Diastolic blood pressure 88 mm[Hg] Morris NILL [facility] 04-08-2022 15:14-0500 Heart rate 72 /min Morris NILL [facility] 04-08-2022 15:14-0500 Respiratory rate 16 /min Morris NILL [facility] 04-08-2022 15:14-0500 Systolic blood pressure 128 mm[Hg] Morris NILL [facility] Encounters Encounter Date Encounter Type Care Provider Facility Start: 02-15-2024 End: 02-15-2024 Phys/qhp telephone evaluation 5-10 min Dru Kinga DO Work Phone: [facility] Comment on above: Osteopenia, [...] 01-02-2023 End: 01-02-2023 ambulatory Diamond Calvey Other [facility] Other Start: 01-02-2023 Office outpatient vi sit 15 minutes Diamond Calvey [facility] Start: 09-23-2022 End: 09-23-2022 ambulatory Diamond Calvey Other [facility] Other Start: 09-23-2022 Office outpatient vi sit 15 minutes Diamond Calvey [facility] Start: 09-02-2022 End: 09-02-2022 ambulatory Diamond Calvey Other [facility] Other Start: 09-02-2022 Office outpatient vi sit 15 minutes Diamond Calvey [facility] Start: 07-08-2022 End: 07-08-2022 ambulatory Diamond Calvey Other [facility] Other Start: 07-08-2022 Office outpatient vi sit 15 minutes Diamond Calvey [facility] Start: 06-03-2022 Office outpatient vi sit 15 minutes Diamond Case [facility] Start: 06-03-2022 End: 06-03-2022 ambulatory Diamond Case Facility:[facility] Start: 06-03-2022 End: 06-03-2022 ambulatory MD Diamond Case Work Phone: [facility] Work Phone: Start: 06-03-2022 End: 06-03-2022 Patient encounter procedure MD Diamond Case Work Phone: [facility] Start: 05-16-2022 End: 05-17-[address] GABBY DEE . Facility:[facility] Start: 05-14-2022 End: 05-22-[address] GABBY DEE . Facility:[facility] Start: 05-07-2022 End: 05-08-2022 ambulatory Morris CAGLE Facility:CD:[id number] Start: 05-06-2022 End: 05-06-2022 ambulatory Diamond Case Other [facility] Other Start: 05-06-2022 Office outpatient ne w 30 minutes Diamond Case [facility] Start: 04-08-2022 End: 04-09-2022 ambulatory Morris CAGLE Facility:[facility] Start: 04-08-2022 End: 04-08-2022 Patient encounter procedure Morris CAGLE [facility] Start: 03-16-[address] GABBY DEE . Facili ty:[facility] Start: 02-26-2022 End: 02-26-[address] GABBY DEE . Facility:[facility] Start: 01-01-2022 End: 01-31-[address] GABBY DEE . Facility:[facility] Start: 12-16-2021 Encounter for genera l adult medical examination without abnormal findings DR GABBY DEE . [facility] Start: 12-13-2021 End: 12-14-[address] GABBY DEE . Facility: Start: 12-13-2021 End: 12-14-2021 Encounter for general adult medical examination without abnormal findings DR GABBY DEE . Facility:[facility] Start: 12-07-2021 End: 12-08-[address] GABBY DEE . Facility:[facility] Start: 10-28-2021 End: 10-29-[address] GABBY DEE . Facility:[facility] Start: 10-12-2021 End: 10-13-2021 ambulatory LEEANNE BRADLEY Facility:[facility] Start: 10-07-2021 End: 10-07-2021 ambulatory LEAENNE BRADLEY Facility:[facility] Procedures Date Procedure Procedure Detail [...] 03-27-2031 Screening for malignant neoplasm of colon [facility] Start: 12-28-2026 Screening for malignant neoplasm of cervix Pap Smear [facility] Start: 05-27-2026 Screening for malignant neoplasm of cervix [facility] Start: 01-03-2025 End: 01-03-2025 Patient encounter procedure 01/03/2025 9:00 AM EDT Office Visit [facility] [address] [place] [address] Dru Donato, DO [address] [place] [address] [facility] Start: 11-17-2024 Screening for malignant neoplasm of breast Mammogram [facility] Start: 12-29-2023 End: 12-28-2024 DXA Skeletal system Views for bone density DEXA bone density Imaging Routine Postmenopausal state Expected: 12/29/2023 (Approximate), Expires: 12/28/2024 [facility] Work Phone: Comment on above: Expected: 12/29/2023 (Approximate), Expires: 12/28/2024 Start: 11-15-2023 Influenza vaccination Influenza Vacc ine (#1) [facility] Start: 1970 Screening for malignant neoplasm of colon [facility] THIN PREP TIS PAP AN D HR HPV DNA THIN PREP TIS PAP AND HR HPV DNA Pathology and Cytology Routine Well woman exam with routine gynecological exam Ordered: 12/29/2023 [facility] Comment on above: Ordered: 12/29/2023 Immunizations Immunization Date Immunization Notes Care Provider Preet shields 12-14-2021 influenza virus vaccine, unspecified formulation Morris CAGLE [facility] 01-18-2021 influenza virus vaccine, unspecified formulation Dru Donato DO Work Phone: [facility] 04-30-2020 SARS-CoV-2 (COVID-19 ) Ad26 vaccine, recombinant Morris NILL [facility] 04-02-2020 SARS-CoV-2 (COVID-19 ) Ad26 vaccine, recombinant Morris NILL [facility] Payers Date Payer Category Payer Self-pay 2022 [facility] [id number] 2022 Unknown [id number] 2019 Unknown [id number] 1970 Unknown [id number] 2.16.840.1.618795.3.579.2. 727 1970 Unknown [id number] 2.16.840.1.361689.3.579.2. 727 1970 Unknown [id number] 2.16.840.1.903846.3.579.2. 593 1970 Unknown [id number] 2.16.840.1.834967.3.579.2. 593 1970 Unknown [id number] 2.16.840.1.462915.3.579.2. 593 1970 Unknown [id number] 2.16.840.1.968360.3.579.2. 593 1970 Unknown [id number] 2.16.840.1.884901.3.579.2. 593 1970 Unknown [id number] 2.16.840.1.536732.3.579.2. 593 1970 Unknown [id number] 2.16.840.1.502358.3.579.2. 593 1970 Unknown [id number] 2.16.840.1.880172.3.579.2. 593 1970 Unknown [id number] 2.16.840.1.651954.3.579.2. 593 1970 Unknown [id number] 2.16.840.1.505696.3.579.2. 593 1970 Unknown [id number] 2.16.840.1.617255.3.579.2. 593 1970 Unknown [id number] 2.16.840.1.091460.3.579.2. 1259 1959 Self-pay [id number] Unknown [id number] 2.16.840.1.484198.3.579.2. 531 Social History Date Type Detail Facility Start: 04-08-2022 End: 12-12-2022 Tobacco smoking status Never smoked tobacco (finding) [facility] Tobacco smoking status Never [facility] Start: 12-23-2022 End: 12-29-2023 Sex Assigned At Female [facility] Start: 1970 Sex Assigned At Female F [facility] Start: 12-23-2022 End: 12-29-2023 Alcoholic beverage intake Current drinker of alcohol (finding) [facility] Start: 12-23-2022 End: 12-29-2023 History of Social function [facility] Start: 12-12-2022 Alcohol Comment Alcohol: 1 or 2 drinks on a typical day/monthly or less Caffeine: 2-3 cups/day [facility] Start: 09-03-2022 Gender identity Identifies as female gender (finding) [facility] Functional Status Date Assessment Result Facility 04-08-2022 Functional Status N/A General Laws [facility] Clinical Notes 12-07-2021 to 02-15-2024 Matilda Liang [...] for a telehealth appointment. Patients Phone #: [phone] (mobile) Current Medications: currently has no medications [...] Dru Donato DO documented in this encounter [facility] 12-29-2023 History of Presen t illness Narrative Reason for Appointment: Patient ID: Theresa Reyes is a 53 y.o. female who presents for [employer] Women Visit Patient presents today for Annual [...] Past Medical History: Diagnosis Date Arthralgia Asthma ([facility]) Headache Hypercholesterolemia ([facility]) Visit for screening mammogram 2017 neg Social [...] nursing note reviewed. 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 Vitals: Estimated body mass index is [...] Dru Donato DO documented in this encounter [facility] 01-02-2023 Evaluation note Encounter Date Diagnosis Assessment [...] well as cortisone injection and surgical release. [facility] Other 07-11-2023 Evaluation note* Encounter Date Diagnosis [...] Left hand pain (ICD- 10 - M79.642) [facility] Other 06-20-2023 Evaluation note* Encounter Date Diagnosis [...] joint of left hand (ICD-10 - M18.12) [facility] Other 2023 Evaluation note* Encounter Date Diagnosis [...] joint of left hand (ICD-10 - M18.12) [facility] Other 03-21-2023 Evaluation note* Encounter Date Diagnosis [...] and tingle for hours after this injection. [facility] Other 03-04-2023 NotePROCEDURE: XR FOOT RT MIN [...] Electronically authenticated by: AL CAMPOS Date: 2022-05-17 12:06[facility]02-22-2023 NoteOPERATIVE NOTE OPERATION [...] in good condition. CC: Gabby Dee M.D.[id number] NoteOPERATIVE NOTE OPERATION DATE: 05/07/2022 ADDENDUM: The distal rectal 4 mm irregular flat polyp was removed with hot snare with good hemostasis, not with cold biopsy forceps.[facility] 05-06-2022 Evaluation note* Encounter Date Diagnosis [...] Apr, Right hand pain (ICD-10 - M79.641) [facility] Other 09-24-2022 NotePROCEDURE: XR SHOULDER LT 2V or > COMPARISON: None. HISTORY: Impingement syndrome of shoulder region FINDINGS: BONES:No fracture, acute abnormality, or significant arthropathy. SOFT TISSUES:Negative. No visible soft tissue swelling. EFFUSION:None visible. OTHER: Negative. IMPRESSION: No acute disease. Electronically authenticated by: AL CAMPOS Date: 2021-12-07 19:36[facility] No data available for this section [facility] Evaluation noteNo assessment information available [facility] Work Phone: Evaluation note* Diagnosis Postmenopausal state Asymptomatic postmenopausal status (age-related) (natural) Well woman exam with routine gynecological exam Routine gynecological examination documented in this encounter [facility] Diagnosis Osteopenia, unspecified location documented in this encounter [facility] general Narrative - Reported* Type Description Date Medical History high cholesterol Surgical History Foot Surgery Surgical History clogged tear duct [facility] Other Hospital Discharge instructions No data available for this section [facility] Progress note No data available for this section [facility] Summary Purpose Family History No Family History [...] Dates Diamond Case MD Attending Provider Active Copy Technician Relationship Specialty Start Date End Date Gabby Dee MD [address] [place] [address] PCP - General Family Medicine 12/23/22 Copy Technician Relationship Specialty Start Date End Date Gabby Dee MD [address] [place] [address] PCP - General Family Medicine 12/23/22 Copy Technician Relationship Specialty Start Date End Date Gabby Dee MD [address] [place] [address] PCP - General Family Medicine 12/23/22 Copy Technician Relationship Specialty Start Date End Date Gabby Dee MD [address] [place] [address] PCP - General Family Medicine 12/23/22 INFORMATION SOURCE (unrecogn ized section and content) DATE CREATED AUTHOR 05/16/2022 [facility] DATE CREATED AUTHOR AUTHOR'S ORGANIZ ATION 06/18/2022 [facility] DATE CREATED AUTHOR AUTHOR'S ORGANIZ ATION 06/21/2022 [facility] DATE CREATED AUTHOR AUTHOR'S ORGANIZ ATION 12/31/2023 [facility] EPIC REASON FOR VISIT [...] BE BASED ON THE PRIMARY CLINICAL RECORDS. [facility] [facility]. provides no warranty or guarantee of the accuracy or completeness of information in this document.
== END 2024-06-03 08:37 | disposition home or self-care (01) ==
LOC: EC 08:36
PROVIDERS: Visit Provider Orthopaedic Surgery Orthopaedic Surgery of the Spine
DX: Z47.89 Encounter for other orthopedic aftercare (principal); R51.9 Headache, unspecified
CPT/HCPCS: 72050

== ENCOUNTER 2024-08-04 08:10 | Outpatient (OUT) | payer BC, SELFPAY ==
--- OUTSIDE RECORDS SUMMARY | 2024-08-04 08:16 | XMS_ITS | CCD ---
Author Organization [facility] Care Team Providers Care Complaint Manager Name Role Phone Gabby Dee Primary Care [...] Unavailable HOY ., DR PIERRE Admitting Unavailable CARL JUNCTION, DR AL Shaikh Consulting Unavailable HOY [...] Unavailable HOY ., DR PIERRE Consulting Unavailable CARL JUNCTION, DR AL Shaikh Consulting Unavailable HOY ., DR PIERRE Admitting Unavailable HOY ., DR PIERRE Attending Unavailable HOY ., DR PIERRE Primary Care Unavailable Gabby Dee MD Primary Care Provider [phone] DRU DONATO Attending Unavailable Allergies Allergy Classification Reported Allergen(s) Allergy Type Date of Onset Reaction(s) Facility (1 source) No Known Medication Allergies; Translations: [No Known Medication Allergies] Propensity to adverse reactions (disorder) [facility] Repository (2 sources) Baclofen Drug Allergy [facility] Repository Medications Current Medications Medication Drug Class(es) [...] GDLNon AGE GDLN ACOG TESTING Note . [facility] Comment on above: TESTS RESULT FLAG UN ITS REF RANGE LAB Clinician Provided Cytology Information Source.............Cervix;Endocervix No. of containers..01 ThinPrep Vial Age Algo ACOG Sheila... 30-65 01 FLAG LEGEND: L-Low Normal,H-High Normal,LL-Alert Low,HH-Alert High <-Panic Low,>-Panic High,A-Abnormal,AA-Critical Abnormal Performed at: 01 =G [address] [place] [address] Sharmaine Hall MD, HPV APTIMA Negative Negative [facility] Comment on above: This nucleic acid am plification test detects fourteen high- risk HPV types (16,18,31,33,35,39,45,51,52,56,58,59,66,68) without differentiation. Performed at: =G - [facility] [id number] Remelter: Sharmaine Hall MD, Phone: [phone] Performed at: - [facility] [id number] Remelter: Sharmaine Hall MD, Phone: [phone] IGP, APTIMA HPV, RFX 16/18,45 Note . [facility] Comment on above: TESTS RESULT FLAG U NITS REF RANGE LAB DIAGNOSIS: 02 NEGATIVE FOR INTRAEPITHELIAL LESION OR MALIGNANCY. Specimen adequacy: 02 Satisfactory for evaluation. Endocervical and/or squamous metaplastic cells (endocervical component) are present. Performed by: Mandy Luis, Precision Inspector (ASCP) . 02 Note: Note 02 The [...] <-Panic Low,>-Panic High,A-Abnormal,AA-Critical Abnormal Performed at: [address] [address] Sharmaine Hall MD, BRUSH-SPATULA CERVIX ENDOCERVIX [facility] XR hand LT min 3V*on 023 XR hand LT min 3V* [address] [address] XRay Report Signed Patient: Theresa Reyes MR#: [id number] : 1970 Acct:[id number] Age/Sex: 52 / F ADM Date: 06/03/22 Loc: [facility] Room: Type: [facility] Attending Dr: Diamond Case MD [...] Miguel Ramey M.D.06/03/2022 1:11 PM Dictation Location: [place] [address] Transcribed By: [facility] 06/03/22 1311 Dictated By: Miguel Ramey II, MD 06/03/22 1310 Signed By: 06/03/22 131 Normal [facility] XR hand LT min 3V* [facility] [employer] Other XR hand LT min 3V* [facility] [employer] Other XR hand LT min 3V* [address] [facility] Other XR hand LT min 3V* YULIANA Doshi [address] [employer] Other XR hand LT min 3V* XRay Report [facility] Other XR hand LT min 3V* Signed [facility] Other XR hand LT min 3V* Patient: Theresa Reyes MR#: [id number] [employer] Other XR hand LT min 3V* [id number] [employer] Other XR hand LT min 3V* : 1970 Acct:[id number] [employer] Other XR hand LT min 3V* Age/Sex: 52 / F ADM Date: 06/03/22 [facility] Other XR hand LT min 3V* Loc: [facility] Room: Type : REG CLI [facility] Other XR hand LT min 3V* Attending Dr: Benny Case MD [employer] Other XR hand LT min 3V* Copies to: Diamond Case MD [facility] Other XR hand LT min 3V* Ordering Provider: Diamond Case MD [employer] Other XR hand LT min 3V* Date of Service: 06/03/22 [facility] Other XR hand LT min 3V* XR/XR hand LT min 3V*: PAIN [employer] Other XR hand LT min 3V* XR hand LT min 3V* 06/03/2022 8:44 AM [facility] Other XR hand LT min 3V* SIGNS AND SYMPTOMS: Left thumb/first metacarpal pain [facility] Other XR hand LT min 3V* PROTOCOL: Frontal, lateral, and oblique radiographs of the left hand: [facility] Other XR hand LT min 3V* COMPARISON: None [facility] Other XR hand LT min 3V* FINDINGS: [facility] Other XR hand LT min 3V* The bones are in anatomic alignment. There is mild degenerative change at the first carpometacarpal [employer] Other XR hand LT min 3V* junction. There is preservation of the joint spaces, otherwise. There is no fracture or dislocation. [facility] Other XR hand LT min 3V* No significant soft tissue swelling. [facility] Other XR hand LT min 3V* XR/XR hand LT min 3V* [facility] Other XR hand LT min 3V* IMPRESSION: [facility] Other XR hand LT min 3V* No acute bony injury. [facility] Other XR hand LT min 3V* Mild degenerative fa cet noted at the base of the thumb. [facility] Other XR hand LT min 3V* Impression dictated by: Miguel Ramey M.D.06/03/2022 1:11 PM Gilman [employer] Other XR hand LT min 3V* Dictation Location: [place] [address] [employer] Other XR hand LT min 3V* Transcribed By: KARRIE 06/03/22 [facility] Other XR hand LT min 3V* Dictated By: Miguel Ramey II, MD 06/03/[address] [place] [address] [employer] Other XR hand LT min 3V* Signed By: [facility] Other XR hand LT min 3V* 06/03/[address] [place] [address] [employer] Other Reminderson 05-15-2022 Reminders - From: Jessica Mims LPN To: N - Clinical; Sent: 05/15/2022 07:57:39 EST Show up: 04/06/2025 07:00:00 EST Subject: colonoscopy recall Due Date/Time: 05/07/2025 07:00:00 EST Reminder/Recall Patient is due for colonoscopy 05/07/2025 due to history of tubulovillous adenoma. Normal [facility] Pathology Noteon 05-09-2022 Pathology Note [id number]#1.00CD :127 Normal [facility] Outside Colonoscopyon 2022 Outside Colonoscopy [id number]#1.00C D:127 Normal [facility] PREG HCG QUALon 05-07-2022 , QUAL Negative Normal NEGATIVE [facility] Comment on above: Performed By: #### P REG #### [facility] Laboratory [address] [place] [address] Dr. Hu Can Pre-Certification Formon Pre-Certification Form [id number]#1.00 CD:127 Normal [facility] Consent for Procedure/Surger yon 04-10-2022 Consent for Procedure/Surgery [id number] D:127 Normal [facility] Facesheeton 04-10-2022 Facesheet [id number]#1.00C D:127 Normal [facility] General Surgery Office/Clini c Noteon [...] (COVID-19) Ad26 vaccine 04/02/2020 Recorded Normal [facility] Comment on above: Result Comment: Elec tronically Signed By: JEFF PONCE, Morris R\.br\Date and Time Signed: 04/08/22 15:33 EST Covid-19 PCR (CVDTBH)on 02-13 SARS-CoV-2 (COVID-19) RNA CLARISSA+probe Ql (Unsp spec) Not detected Normal NOT DETECTED [facility] Comment on above: Result Comment: When diagnostic [...] for this test is supported by the [place] of Health and Human Service's declaration that [...] used). Performed By: #### C VDTBH #### [facility] [address] [address] Dr. Hu Can INFLUENZA A AND B AGon 02-26 [facility] SEE BELOW Normal [facility] Comment on above: Result Comment: Nega tive for Flu A protein angiten. Infection due to Flu A cannot be ruled out. Flu A angiten in the sample may be below the detection limit of the test. Performed By: #### I NFLUAB #### [facility] [address] [address] Dr. Hu Can [facility] SEE BEL[facility] Normal [facility] Comment on above: Result Comment: Nega tive for Flu B protein antigen. Infection due to Flu B cannot be ruled out. Flu B antigen in the sample may be below the detection limit of the test. Performed By: #### I NFLUAB #### [facility] [address] [address] Dr. Hu Can INFLUENZA A AG Negative Normal NEGATIVE SEE COMMENT [facility] Comment on above: Performed By: #### I NFLUAB #### [facility] [address] [place] [address] Dr. Hu Can INFLUENZA B AG Negative Normal NEGATIVE SEE COMMENT [facility] Comment on above: Performed By: #### I NFLUAB #### [facility] [address] [place] [address] Dr. Hu Can INTERNAL CONTROLS Within Normal Limits Normal Wi thin Normal Limits [facility] Comment on above: Performed By: #### I NFLUAB #### [facility] [address] [place] [address] Dr. Hu Can CBC AUTO DIFFon 12-13-2021 BASO # 0.0 103/ul Normal 0.0-0.1 [facility] Comment on above: Performed By: #### C BC #### [facility] [address] [place] [address] Dr. Hu Can Basophils/100 WBC (Bld) 0.3 % Normal 0.2-2.0 [facility] Comment on above: Performed By: #### C BC #### [facility] [address] [place] [address] Dr. Hu Can EO # 0.1 103/ul Normal 0.0-0.7 [facility] Comment on above: Performed By: #### C BC #### [facility] [address] [place] [address] Dr. Hu Can Eosinophils/100 WBC (Bld) 1.1 % Normal 0.9-7.0 [facility] Comment on above: Performed By: #### C BC #### [facility] [address] [place] [address] Dr. Hu Can Erythrocyte distribution width (RBC) [Ratio] 13.7 % Normal 11.0-15.0 [facility] Comment on above: Performed By: #### C BC #### [facility] [address] [place] [address] Dr. Hu Can Hematocrit (Bld) [Volume fraction] 44.6 % Normal 36.0-48.0 [facility] Comment on above: Performed By: #### C BC #### [facility] [address] [place] [address] Dr. Hu Can Hemoglobin (Bld) [Mass/Vol] 14.5 g/dL Normal 12.0-16.0 [facility] Comment on above: Performed By: #### C BC #### [facility] [address] [place] [address] Dr. Hu Can IG # 0.02 10e3/ul Normal 0.00-0.03 [facility] Comment on above: Performed By: #### C BC #### [facility] [address] [place] [address] Dr. Hu Can IG % 0.3 % Normal 0.0-0.5 [facility] Comment on above: Performed By: #### C BC #### [facility] [address] [place] [address] Dr. Hu Can LYMPH # 2.3 103/ul Normal 1.2-3.8 [facility] Comment on above: Performed By: #### C BC #### [facility] [address] [place] [address] Dr. Hu Can Lymphocytes/100 WBC (Bld) 30.5 % Normal 20.5-60.0 [facility] Comment on above: Performed By: #### C BC #### [facility] [address] [place] [address] Dr. Hu Can MANUAL DIFF REQ NO Normal [facility] Comment on above: Performed By: #### C BC #### [facility] [address] [place] [address] Dr. Hu Can MCH (RBC) [Entitic mass] 29.1 pg Normal 26.7-34.0 [facility] Comment on above: Performed By: #### C BC #### [facility] [address] [place] [address] Dr. Hu Can MCHC (RBC) [Mass/Vol] 32.5 g/dL Normal 29.9-35.2 [facility] Comment on above: Performed By: #### C BC #### [facility] [address] [place] [id number] Hu Can MCV (RBC) [Entitic vol] 89.6 fL Normal 81.0-99.0 [facility] Comment on above: Performed By: #### C BC #### [facility] [address] [place] [address] [address] Hu Can MONO # 0.5 103/ul Normal 0.3-0.8 [facility] Comment on above: Performed By: #### C BC #### [facility] [address] [place] [address] Dr. Hu Can Monocytes/100 WBC (Bld) 6.8 % Normal 1.7-12.0 [facility] Comment on above: Performed By: #### C BC #### [facility] [address] [place] [address] Dr. Hu Can NEUT # 4.6 103/ul Normal 1.4-6.5 [facility] Comment on above: Performed By: #### C BC #### [facility] [address] [place] [address] Dr. Hu Can Neutrophils/100 WBC (Bld) 61.0 % Normal 43.0-75.0 [facility] Comment on above: Performed By: #### C BC #### [facility] [address] [place] [address] Dr. Hu Can Platelet mean volume (Bld) [Entitic vol] 9.3 fL Critically low 9.5-13.5 [facility] Comment on above: Performed By: #### C BC #### [facility] [address] [place] [address] Dr. Hu Can PLT 296 103/ul Normal 150-450 [facility] Comment on above: Performed By: #### C BC #### [facility] [address] [place] [address] Dr. Hu Can RBC 4.98 106/ul Normal 4.20-5.40 [facility] Comment on above: Performed By: #### C BC #### [facility] [address] [place] [address] Dr. Hu Can WBC 7.5 103/ul Normal 4.0-11.0 [facility] Comment on above: Performed By: #### C BC #### [facility] [address] [place] [address] [address] Hu Can GLYCOHEMOGLOBIN A1Con 2021 ADA RECOMMENDATION SEE BELOW Normal [facility] Comment on above: Result Comment: ADA RECOMMENDED LIMIT 4.0 - 6.0 ADA THERAPEUTIC TARGET < 7.0 ACTION SUGGESTED > 7.0 Performed By: #### A 1C #### [facility] [address] [place] [address] [address] Hu Can Glucose [Mass/Vol] 114 mg/dL Normal [facility] Comment on above: Performed By: #### A 1C #### [facility] [address] [place] [address] [address] Hu Can HbA1c (Bld) [Mass fraction] 5.6 % Normal 4.5-6.2 [facility] Comment on above: Performed By: #### A 1C #### [facility] [address] [place] [address] [address] Hu Can LIPID PROFILEon 12-13-2021 CHOL-HDL RATIO NORM SEE BELOW Normal [facility] Comment on above: Result Comment: 3.3 - 4.4 LOW RISK 4.4 - 7.1 AVERAGE RISK 7.1 - 11.0 MODERATE RISK >11.0 HIGH RISK Performed By: #### T SH, CMP, LIPID ####[facility] [address] [place] [address]Dr. Hu Can Cholesterol [Mass/Vol] 279 mg/dL Critically high <=200 [facility] Comment on above: Performed By: #### T SH, CMP, LIPID ####[facility] [address] [place] [id number]. Hu Can Cholesterol in HDL [Mass/Vol] 50 mg/dL Normal 40-60 [facility] Comment on above: Performed By: #### T SH, CMP, LIPID ####[facility] [address] [place] [address]Dr. Hu Can Cholesterol in LDL [Mass/Vol] 197.8 mg/dL Normal [facility] Comment on above: Performed By: #### T SH, CMP, LIPID ####[facility] [address] [place] [address]Dr. Hu Can Cholesterol.total/ Cholesterol in HDL [Mass ratio] 5.6 {ratio} Normal [facility] Comment on above: Performed By: #### T SH, CMP, LIPID ####[facility] [address] [place] [address]Dr. Hu Can HDL NORMAL > or = 60 mg/dl - LO W CARDIOVASCULAR RISK <40 mg/dl - HIGH CARDIOVASCULAR RISK Normal [facility] Comment on above: Performed By: #### T SH, CMP, LIPID ####[facility] [address] [place] [address]Dr. Hu Can LDL CALC NORMAL SEE BELOW Normal [facility] Comment on above: Result Comment: <100 mg/dl OPTIMAL 100 - 129 mg/dl NEAR OR ABOVE OPTIMAL 130 - 159 mg/dl BORDERLINE HIGH 160 - 189 mg/dl HIGH >190 mg/dl VERY HIGH Performed By: #### T SH, CMP, LIPID ####[facility] [address] [place] [address]Dr. Hu Can Triglyceride [Mass/Vol] 156 mg/dL Critically high <=150 [facility] Comment on above: Performed By: #### T SH, CMP, LIPID ####[facility] [address] [place] [address]Dr. Hu Can VLDL CALC 31.2 mg/dL Normal [facility] Comment on above: Performed By: #### T SH, CMP, LIPID ####[facility] [address] [place] [address]Dr. Hu Can PROF 14(COMP METB)on 022 Albumin [Mass/Vol] 3.8 g/dL Normal 3.4-5.0 [facility] Comment on above: Performed By: #### T SH, CMP, LIPID ####[facility] [address] [place] [address]Dr. Hu Can Albumin/Globulin [Mass ratio] 1.2 {ratio} Normal [facility] Comment on above: Performed By: #### T SH, CMP, LIPID ####[facility] [address] [place] [address]Dr. Hu Can ALP [Catalytic activity/Vol] 74 U/L Normal 46-116 [facility] Comment on above: Performed By: #### T SH, CMP, LIPID ####[facility] [address] [place] [address]Dr. Hu Juan José ALT [Catalytic activity/Vol] 19 U/L Normal 14-59 [facility] Comment on above: Performed By: #### T SH, CMP, LIPID ####[facility] [address] [place] [address]Dr. Hu Can Anion gap [Moles/Vol] 11.0 mmol/L Normal [facility] Comment on above: Performed By: #### T SH, CMP, LIPID ####[facility] [address] [place], [place] [address]Dr. Hu Juan José AST [Catalytic activity/Vol] 12 U/L Critically low 15-37 [facility] Comment on above: Performed By: #### T SH, CMP, LIPID ####[facility] [address] [place], [place] [address]Dr. Hu Juan José Bilirubin [Mass/Vol] 0.7 mg/dL Normal 0.2-1.0 [facility] Comment on above: Performed By: #### T SH, CMP, LIPID ####[facility] [address] [place] [address]Dr. Hu Juan José Calcium [Mass/Vol] 8.7 mg/dL Normal 8.5-10.1 [facility] Comment on above: Performed By: #### T SH, CMP, LIPID ####[facility] [address] [place] [address]Dr. Hu Can Chloride [Moles/Vol] 102 mmol/L Normal 98-107 [facility] Comment on above: Performed By: #### T SH, CMP, LIPID ####[facility] [address] [place] [id number]. Hu Can CO2 [Moles/Vol] 28.2 mmol/L Normal 21.0-32.0 [facility] Comment on above: Performed By: #### T SH, CMP, LIPID ####[facility] [address] [place] [id number]. Hu Can Creatinine [Mass/Vol] 0.91 mg/dL Normal 0.55-1.02 [facility] Comment on above: Performed By: #### T SH, CMP, LIPID ####[facility] [address] [place] [address]Dr. Hu Can EGFR-AF CITIZEN [place] >60 Normal >=60 [facility] Comment on above: Performed By: #### T SH, CMP, LIPID ####[facility] [address] [place] [address]Dr. Hu Can EGFR-NON AF CITIZEN OF [place] >60 Normal >=60 [facility] Comment on above: Performed By: #### T SH, CMP, LIPID ####[facility] [address] [place] [id number]. Hu Can Globulin (S) [Mass/Vol] 3.3 g/dL Normal [facility] Comment on above: Performed By: #### T SH, CMP, LIPID ####[facility] [address] [place] [id number]. Hu Can Glucose [Mass/Vol] 105 mg/dL Normal 74-106 [facility] Comment on above: Performed By: #### T SH, CMP, LIPID ####[facility] [address] [place] [id number]. Hu Can Potassium [Moles/Vol] 4.2 mmol/L Normal 3.5-5.1 [facility] Comment on above: Performed By: #### T SH, CMP, LIPID ####[facility] [address] [place] [address]Dr. Hu Can Protein [Mass/Vol] 7.1 g/dL Normal 6.4-8.2 [facility] Comment on above: Performed By: #### T SH, CMP, LIPID ####[facility] [address] [place] [address]Dr. Hu Can Sodium [Moles/Vol] 137 mmol/L Normal 136-145 [facility] Comment on above: Performed By: #### T SH, CMP, LIPID ####[facility] [address] [place] [id number]. Hu Can Urea nitrogen [Mass/Vol] 23.0 mg/dL Critically high 7.0-18.0 [facility] Comment on above: Performed By: #### T SH, CMP, LIPID ####[facility] [address] [place] [id number]. Hu Cna Urea nitrogen/Creatinin e [Mass ratio] 25.3 mg/mg Normal [facility] Comment on above: Performed By: #### T SH, CMP, LIPID ####[facility] [address] [place] [address]Dr. Hu Can TSHon 12-13-2021 TSH 1.249 uIU/mL Normal 0.358-3.740 [facility] Comment on above: Performed By: #### T SH, CMP, LIPID ####[facility] [address] [place] [address]Dr. Hu Can XR CSPINE MIN 4 VIEWSon [...] 19:38 Normal [facility] MG MAMM SCREEN 3D HIEU CADon 10-28-2021 MG MAMM SCREEN 3D HIEU CAD Patient: THERESA REYES Exam Date: 10/28/2021 : 1970 Gender:F Ordering : DR GABBY DEE . Admission #: [id number] Family : Order #: [id number] CLICK HERE TO VIEW EXAM RADIOLOGY REPORT [...] 80. LOCATION: [facility] BREAST COMPOSITION: Scattered areas fibroglandular density. FINDINGS: [...] 12:02 Normal [facility] Covid-19 PCR (CVDTB)on 09-15 SARS-CoV-2 (COVID-19) RNA CLARISSA+probe Ql (Unsp spec) Not detected Normal NOT DETECTED [facility] Comment on above: Result Comment: When diagnostic [...] for this test is supported by the [place] of Health and Human Service's declaration that [...] C VDTB #### [facility] [address] [place], [place] [address] Dr. Hu Can Covid-19 PCR (WHITE [facility])on 09-14 SARS-CoV-2 (COVID-19) RNA CLARISSA+probe Ql (Unsp spec) Detected Critically abnormal NOT DETECTED [facility] Comment on above: Result Comment: This test is not yet approved or cleared by the [place] FDA. When there are no FDA-approved or cleared tests available, and other criteria are met, FDA can make tests available under an emergency access mechanism called an Emergency Use Authorization (EUA). The EUA for this test is supported by the Case Checker of Health and Human Service's declaration that [...] be used). Performed By: #### C VDTB ####[facility] [address] [place], [place] [address]XfDr. Hu Can Pathology Noteon 07-12-2021 Pathology Note [id number] D:127 Normal [facility] Vital Signs Date Time Vital Sign Value Performing Clinician Facility 12-29-2023 15:39-0400 Body height 170.2 cm [employer] Work Phone: [facility] 12-29-2023 15:39-0400 Body mass index (BMI) [Ratio] 30.23 kg/m2 [employer] Work Phone: [facility] 12-29-2023 15:39-0400 Body weight 87.54 kg [employer] Work Phone: [facility] 12-29-2023 15:39-0400 Diastolic blood pressure 82 mm[Hg] Dru Kinga DO Work Phone: [facility] 12-29-2023 15:39-0400 Systolic blood pressure 134 mm[Hg] Dru Kinga DO Work Phone: [facility] 09-02-2022 09:30-0400 Body height 170.18 cm Diamond MPV Other [facility] Other 09-02-2022 09:30-0400 Body mass index (BMI) [Ratio] 30.85 kg/m2 [employer] Other [facility] Other 09-02-2022 09:30-0400 Body weight 89.36 kg Diamondgiorgi Case Other [facility] Other 04-08-2022 15:14-0500 Blood Pressure Location [id number] [facility] [place] 04-08-2022 15:14-0500 Diastolic blood pressure 88 mm[Hg] Morris NILL [facility] [place] 04-08-2022 15:14-0500 Heart rate 72 /min Morris NILL [facility] [place] 04-08-2022 15:14-0500 Respiratory rate 16 /min Morris NILL [facility] [place] 04-08-2022 15:14-0500 Systolic blood pressure 128 mm[Hg] Morris NILL [facility] [place] Encounters Encounter Date Encounter Type Care Provider Facility Start: 02-15-2024 End: 02-15-2024 Phys/qhp telephone evaluation 5-10 min Dru Kinga DO Work Phone: [facility] Comment on above: Osteopenia, [...] 01-02-2023 End: 01-02-2023 ambulatory Diamond Calvey Other [facility] Other Start: 01-02-2023 Office outpatient vi sit 15 minutes Diamond Calvey [facility] Start: 09-23-2022 End: 09-23-2022 ambulatory Diamond Calvey Other [facility] Other Start: 09-23-2022 Office outpatient vi sit 15 minutes Diamond Calvey [facility] Start: 09-02-2022 End: 09-02-2022 ambulatory Diamond Calvey Other [facility] Other Start: 09-02-2022 Office outpatient vi sit 15 minutes Diamond Calvey [facility] Start: 07-08-2022 End: 07-08-2022 ambulatory Diamond Calvey Other [facility] Other Start: 07-08-2022 Office outpatient vi sit 15 minutes Diamond Calvey [facility] Start: 06-03-2022 Office outpatient vi sit 15 minutes Diamond Case [facility] Start: 06-03-2022 End: 06-03-2022 ambulatory Diamond Case Facility:[facility] Start: 06-03-2022 End: 06-03-2022 ambulatory MD Diamond Case Work Phone: [facility] Work Phone: Start: 06-03-2022 End: 06-03-2022 Patient encounter procedure MD Diamond Case Work Phone: [facility] Start: 05-16-2022 End: 05-17-[address] GABBY DEE . Facility:[facility] Start: 05-14-2022 End: 05-22-[address] GABBY DEE . Facility:[facility] Start: 05-07-2022 End: 05-08-2022 ambulatory Morris CAGLE Facility:CD:[id number] Start: 05-06-2022 End: 05-06-2022 ambulatory Diamond Case Other [facility] Other Start: 05-06-2022 Office outpatient ne w 30 minutes Diamond Case [facility] Start: 04-08-2022 End: 04-09-2022 ambulatory Morris CAGLE Facility:[facility] Start: 04-08-2022 End: 04-08-2022 Patient encounter procedure Morris CAGLE [facility] [place] Start: 03-16-[address] GABBY DEE . Facili ty:[facility] Start: 02-26-2022 End: 02-26-[address] GABBY DEE . Facility:[facility] Start: 01-01-2022 End: 01-31-[address] GABBY DEE . Facility:[facility] Start: 12-16-2021 Encounter for genera l adult medical examination without abnormal findings DR GABBY DEE . [facility] Start: 12-13-2021 End: 12-14-[address] GABBY [...] Plain X-ray of left hand MD Diamond aCse Work Phone: Start: 05-27-2021 Microscopic observat ion [...] 03-27-2031 Screening for malignant neoplasm of colon [facility] Start: 12-28-2026 Screening for malignant neoplasm of cervix Pap Smear [facility] Start: 05-27-2026 Screening for malignant neoplasm of cervix [facility] Start: 01-03-2025 End: 01-03-2025 Patient encounter procedure 01/03/2025 9:00 AM EDT Office Visit [facility] [address] [place] [address] Dru Donato, DO [address] [place] [address] [facility] Start: 11-17-2024 Screening for malignant neoplasm of breast Mammogram [facility] Start: 12-29-2023 End: 12-28-2024 DXA Skeletal system Views for bone density DEXA bone density Imaging Routine Postmenopausal state Expected: 12/29/2023 (Approximate), Expires: 12/28/2024 [facility] Work Phone: Comment on above: Expected: 12/29/2023 (Approximate), Expires: 12/28/2024 Start: 11-15-2023 Influenza vaccination Influenza Vacc ine (#1) [facility] Start: 1970 Screening for malignant neoplasm of colon [facility] THIN PREP TIS PAP AN D HR HPV DNA THIN PREP TIS PAP AND HR HPV DNA Pathology and Cytology Routine Well woman exam with routine gynecological exam Ordered: 12/29/2023 [facility] Comment on above: Ordered: 12/29/2023 Immunizations Immunization Date Immunization Notes Care Provider Preet shields 12-14-2021 influenza virus vaccine, unspecified formulation Morris CAGLE [facility] 01-18-2021 influenza virus vaccine, unspecified formulation Dru Dnoato DO Work Phone: [facility] 04-30-2020 SARS-CoV-2 (COVID-19 ) Ad26 vaccine, recombinant Morris NILL [facility] 04-02-2020 SARS-CoV-2 (COVID-19 ) Ad26 vaccine, recombinant Morris NILL [facility] Payers Date Payer Category Payer Self-pay 2022 [facility] [employer] [id number] 2022 Unknown [id number] 2019 Unknown [id number] 1970 Unknown [id number] 2.16.840.1.018914.3.579.2. 727 1970 Unknown [id number] 2.16.840.1.842033.3.579.2. 727 1970 Unknown [id number] 2.16.840.1.412453.3.579.2. 593 1970 Unknown [id number] 2.16.840.1.558972.3.579.2. 593 1970 Unknown [id number] 2.16.840.1.709267.3.579.2. 593 1970 Unknown [id number] 2.16.840.1.948741.3.579.2. 593 1970 Unknown [id number] 2.16.840.1.113940.3.579.2. 593 1970 Unknown [id number] 2.16.840.1.738659.3.579.2. 593 1970 Unknown [id number] 2.16.840.1.040264.3.579.2. 593 1970 Unknown [id number] 2.16.840.1.934060.3.579.2. 593 1970 Unknown [id number] 2.16.840.1.616274.3.579.2. 593 1970 Unknown [id number] 2.16.840.1.535515.3.579.2. 593 1970 Unknown [id number] 2.16.840.1.837106.3.579.2. 593 1970 Unknown [id number] 2.16.840.1.530273.3.579.2. 1259 1959 Self-pay [id number] Unknown [id number] 2.16.840.1.113654.3.579.2. 531 Social History Date Type Detail Facility Start: 04-08-2022 End: 12-12-2022 Tobacco smoking status Never smoked tobacco (finding) [facility] [place] Tobacco smoking status Never [facility] [place] Start: 12-23-2022 End: 12-29-2023 Sex Assigned At Female [facility] Start: 1970 Sex Assigned At Female [facility] Start: 12-23-2022 End: 12-29-2023 Alcoholic beverage intake Current drinker of alcohol (finding) [facility] Start: 12-23-2022 End: 12-29-2023 History of Social function [facility] Start: 12-12-2022 Alcohol Comment Alcohol: 1 or 2 drinks on a typical day/monthly or less Caffeine: 2-3 cups/day [facility] Start: 09-03-2022 Gender identity Identifies as female gender (finding) [facility] Functional Status Date Assessment Result Facility 04-08-2022 Functional Status N/A General Laws [facility] Clinical Notes 12-07-2021 to 02-15-2024 [...] for a telehealth appointment. Patients Phone #: [phone] (mobile) Current Medications: currently has no medications [...] Dru Donato DO documented in this encounter [facility] 12-29-2023 History of Presen t illness Narrative Reason for Appointment: Patient ID: Theresa Reyes is a 53 y.o. female who presents for [facility] Visit Patient presents today for Annual [...] Past Medical History: Diagnosis Date Arthralgia Asthma ([facility]) Headache Hypercholesterolemia ([facility]) Visit for screening mammogram 2017 neg [...] nursing note reviewed. Exam conducted with a pairing machine operator present. Vitals: Estimated body mass index is [...] Dru Donato DO documented in this encounter [facility] 01-02-2023 Evaluation note Encounter Date Diagnosis [...] well as cortisone injection and surgical release. [facility] Other 07-11-2023 Evaluation note* Encounter Date Diagnosis [...] Left hand pain (ICD- 10 - M79.642) [facility] Other 06-20-2023 Evaluation note* Encounter Date Diagnosis [...] joint of left hand (ICD-10 - M18.12) [facility] Other 2023 Evaluation note* Encounter Date Diagnosis [...] joint of left hand (ICD-10 - M18.12) [facility] Other 03-21-2023 Evaluation note* Encounter Date Diagnosis [...] and tingle for hours after this injection. [facility] Other 03-04-2023 NotePROCEDURE: XR FOOT RT MIN [...] Electronically authenticated by: AL CAMPOS Date: 2022-05-17 12:06[facility]02-22-2023 NoteOPERATIVE NOTE OPERATION DATE: 05/07/2022 PREOPERATIVE DIAGNOSIS: [...] CC: Gabby Dee M.D.[id number] NoteOPERATIVE NOTE OPERATION DATE: 05/07/2022 ADDENDUM: The distal rectal 4 mm irregular flat polyp was removed with hot snare with good hemostasis, not with cold biopsy forceps.[facility] 05-06-2022 Evaluation note* Encounter Date Diagnosis Assessment [...] Apr, Right hand pain (ICD-10 - M79.641) [facility] Other 09-24-2022 NotePROCEDURE: XR SHOULDER LT 2V or > COMPARISON: None. HISTORY: Impingement syndrome of shoulder region FINDINGS: BONES:No fracture, acute abnormality, or significant arthropathy. SOFT TISSUES:Negative. No visible soft tissue swelling. EFFUSION:None visible. OTHER: Negative. IMPRESSION: No acute disease. Electronically authenticated by: AL CAMPOS Date: 2021-12-07 19:36[facility] Plan note No data available for this section [facility] [place] Evaluation noteNo assessment information available [facility] Work Phone: Evaluation note* Diagnosis Postmenopausal state Asymptomatic postmenopausal status (age-related) (natural) Well woman exam with routine gynecological exam Routine gynecological examination documented in this encounter [facility] HealthcareEvaluation note* Diagnosis Osteopenia, unspecified location documented in this encounter [facility] HealthcareHistory general Narrative - Reported* Type Description Date Medical History high cholesterol Surgical History Foot Surgery Surgical History clogged tear duct [facility] Hospital Discharge instructions No data available for this section [facility] [place] Progress note No data available for this section [facility] [place] Summary Purpose Family History No Family History Records FoundNo Family History Records FoundNo Family History Records FoundNo Family History Records Found Advance Directives No Advanced Directives Records FoundNo Advanced Directives Records FoundNo Advanced Directives Records FoundNo Advanced Directives Records Found Additional Source Comments Patient Care team informatio n (unrecognized section and content) Team Status: Inactive Member Role Status Dates Diaomnd Case MD Attending Provider Active Complaint Manager Relationship Specialty Start Date End Date Gabby Dee MD [address] [place] [address] PCP - General Family Medicine 12/23/22 Complaint Manager Relationship Specialty Start Date End Date Gabby Dee MD [address] [place] [address] PCP - General Family Medicine 12/23/22 Complaint Manager Relationship Specialty Start Date End Date Gabby Dee MD [address] [place] [address] PCP - General Family Medicine 12/23/22 Complaint Manager Relationship Specialty Start Date End Date Gabby Dee MD [address] [place] [address] PCP - General Family Medicine 12/23/22 INFORMATION SOURCE (unrecogn ized section and content) DATE CREATED AUTHOR 05/16/2022 [facility] DATE CREATED AUTHOR AUTHOR'S ORGANIZ ATION 06/18/2022 [facility] DATE CREATED AUTHOR AUTHOR'S ORGANIZ ATION 06/21/2022 [facility] DATE CREATED AUTHOR AUTHOR'S ORGANIZ ATION 12/31/2023 [facility] dical Specialists EPIC REASON FOR VISIT (unrecogniz [...] BE BASED ON THE PRIMARY CLINICAL RECORDS. [facility] [employer] [facility]. provides no warranty or guarantee of the accuracy or completeness of information in this document.
[2024-08-04 08:37] LABS: Basophils Percent Auto 0.7 % (0.2-2.0); Eosinophils Absolute Auto 0.2 10^3/uL (0.0-0.7); Eosinophils Percent Auto 4.8 % (0.9-7.0); Hematocrit 43.9 % (36.0-48.0); Hemoglobin 14.7 g/dL (12.0-16.0); Lymphocytes Absolute Auto 1.4 10^3/uL (1.2-3.8); Lymphocytes Percent Auto 34.6 % (20.5-60.0); Mean Corpuscular HGB Conc 33.5 g/dL (29.9-35.2); Mean Corpuscular Volume 86.6 fL (81.0-99.0); Mean Platelet Volume 10.1 fL (9.5-13.5); Monocytes Absolute Auto 0.4 10^3/uL (0.3-0.8); Monocytes Percent Auto 9.4 % (1.7-12.0); Neutrophils Absolute Auto 2.1 10^3/uL (1.4-6.5); Neutrophils Percent Auto 50.5 % (43.0-75.0); Platelet Count 289 10^3/uL (150-450); Red Blood Count 5.07 10^6/uL (4.20-5.40); Red Cell Distribution Width 12.5 % (11.0-15.0); White Blood Count 4.2 10^3/uL (4.0-11.0)
[2024-08-04 08:41] LABS: Estimated Average Glucose 131 mg/dL; Glycohemoglobin A1C 6.2 % (4.5-6.2)
[2024-08-04 09:02] LABS: Alanine Aminotransferase 35 U/L (14-59); Albumin Globulin Ratio 1.1; Albumin Level 3.7 g/dL (3.4-5.0); Alkaline Phosphatase 90 U/L (46-116); Anion Gap 14.1; Aspartate Amino Transferase 19 U/L (15-37); BUN Creatinine Ratio 20.7; Bilirubin Total 0.6 mg/dL (0.2-1.0); Calcium 8.9 mg/dL (8.5-10.1); Chloride 104 mmol/L (98-107); Chol HDL Ratio 6.2; Cholesterol 283 mg/dL (<=200); Estimated GFR (African America >60 (>=60 mL/min/1.73m^2); Estimated GFR (Non-African Ame >60 (>=60 mL/min/1.73m^2); Globulin 3.4 g/dL; Glucose 121 mg/dL (74-106); HDL Cholesterol 46 mg/dL (40-60); Potassium 4.1 mmol/L (3.5-5.1); Sodium 143 mmol/L (136-145); Thyroid Stimulating Hormone 1.452 uIU/mL (0.358-3.740); Total Protein 7.1 g/dL (6.4-8.2); Triglycerides 207 mg/dL (<=150); VLDL CHOLESTEROL 41.4 mg/dL
== END 2024-08-04 08:11 | disposition home or self-care (01) ==
LOC: LAB 08:14
PROVIDERS: PCP Family Medicine; Visit Provider Family Medicine
DX: Z00.00 Encounter for general adult medical examination without abnormal findings (principal)
CPT/HCPCS: 36415; 80053; 80061; 83036; 84443; 85025

== ENCOUNTER 2024-11-23 07:32 | Outpatient (OUT) | payer BC, SELFPAY ==
--- OUTSIDE RECORDS SUMMARY | 2023-08-21 04:30 | XMS_ITS ---
Author Organization [facility] Address [address] [place] [address] Care Team Providers Care Mobile Heavy Equipment Operator Name Role Phone TyreeRod hannah Primary Care Provider Roberto doe Reese Busch Unavailable [phone] Kayla Randle Unavailable [phone] Allergies No Known Allergies REASON FOR VISIT [...] Problem Status W/U Status Risk Notes Problem [id number] Intractable headache, unspecified chronicity pattern, unspecified headache type (R51.9) Active confirmed Encounters Encounter Location Date Provider Diagnosis [facility] Office [address] [place] [address] [place] [address] [facility] of the musculoskeletal system [...] Order Date Cervical spine 2 v - [id number] 08/21/2023 Next Appt Details Follow Up: 3 Months, Reason: Progress Notes * IDA JOSHUAEDOB:[birth year] (54 yo F)Acc No.[id number]:08/21/2023 Patient: THERESA DARNELL Provider: SANAZ Ward :1970 A ge:53 Y S ex:Female Date:08/21/2023 Address:[address] [place] [address], [id number] Pcp:Rod Dee Subjective: * Chief Complaints: * [...] gone to the pain management clinic in [place] and gotten an injection that has lasted [...] Electronic signature of Boris Randle PA-C on 11/23/2024 at 07:35 AM EDT Sign off status: Pending * Provider: SANAZ Ward Date: 0 08/21/2023 Generated for Teri dee/Arturo/Adriel on: 0 11/23/2024 07:35 AM EDT History and Physical Notes * [...] gone to the pain management clinic in [place] and gotten an injection that has lasted [...]
--- OUTSIDE RECORDS SUMMARY | 2024-06-30 06:06 | XMS_ITS ---
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 Role Phone Eliot Dee Primary Care Provider [phone] [facility] wellness labs Encounters Encounter Location Date Provider Diagnosis [facility] [address] [place] [address] 06/30/2024 Eliot Dee Wellness examination Z01.89 Assessments Encounter Date Diagnosis (ICD Code) Assessment Notes Treatment Notes Treatment Clinical Notes Section Notes 06/30/2024 Wellness examination (ICD-10 - Z01.89) Plan Of Treatment No Information Progress Notes * Jayde JOSHUADOB:1970 (54 yo F)Acc No.[id number]:06/30/2024 Patient: Reena VALENTESARAY Jayde Snow :1970 A ge:54 Y S ex:Female Address:[address] [place] [address], [phone] Subjective: * Chief Complaints: * T wellness labs * Medical History: * Surgical History: * Hospitalization/Major Diagno stic Procedure: * Medications: Objective: * Vitals: * Physical Examination: Assessment: * Assessment: 1. W [facility] examination - Z01.89 (Primary) Plan: * Treatment: * Procedure Codes: * true * Date: Generated for Printi ng/Faxing/eTransmitting on: 0 11/23/2024 07:34 AM EDT
--- OUTSIDE RECORDS SUMMARY | 2024-07-25 10:58 | XMS_ITS ---
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 Role Phone Eliot Dee Primary Care Provider Problems Problem Type SNOMED Code ICD Code Onset Dates Problem Status W/U Status Risk Notes Problem Well adult (843872653) Well adult (Z00.00) Active confirmed Encounters Encounter Location Date Provider [facility] [address] [place] [address] 07/25/2024 Eliot Dee Well adult Z00.0 0 Assessments Encounter Date Diagnosis (ICD Code) Assessment Notes Treatment Notes Treatment Clinical Notes Section Notes 07/25/2024 Well adult (ICD-10 - Z00.00) Plan Of Treatment Pending Test Test Name Order Date CBC AUTO DIFF 07/25/2024 GLYCOHEMOGLOBIN A1C 07/25/2024 LIPID PROFILE 07/25/2024 PROF 14(COMP METB) 07/25/2024 TSH 07/25/2024 Progress Notes * Jayde JOSHUADOB:1970 (54 yo F)Acc No.[id number]:07/25/2024 Patient: Reena Jayde DUKES :1970 A ge:54 Y S ex:Female Address:[address] [place] [address], [phone] Subjective: * Chief Complaints: * * Medical History: * Surgical History: * Hospitalization/Major Diagno stic Procedure: * Medications: Objective: * Vitals: * Physical Examination: Assessment: * Assessment: 1. W ell adult - Z00.00 (Primary) Plan: * Treatment: * Procedure Codes: * true * Date: Generated for Teri dee/Arturo/Adriel on: 0 11/23/2024 07:35 AM EDT
--- OUTSIDE RECORDS SUMMARY | 2024-08-04 16:26 | XMS_ITS ---
Author Organization [facility] [place] Address [address] [place] [address] Care Team Providers Care Field Ring Assembler Name Role Phone Eliot Dee Primary Care Provider REASON FOR VISIT labs Medications Medication SIG (Take, Route, Fr equency, Duration) Notes Start Date End Date Status Simvastatin 20 MG 1 tablet in the even ing Orally Once a day for 30 08/05/2024 Active Encounters Encounter Location Date Provider Diagnosis [facility] [address] [place] [address] 08/04/2024 Eliot Dee Hyperlipidemia E78.5 Assessments Encounter Date Diagnosis (ICD Code) Assessment Notes Treatment Notes Treatment Clinical Notes Section Notes 08/04/2024 Hyperlipidemia (ICD-10 - E78.5) Plan Of Treatment Medication Medication Name Sig Start Date Stop Date Notes Simvastatin 20 MG 1 tablet in the even ing Orally Once a day for 30 08/05/2024 Pending Test Test Name Order Date LIVER PROFILE 08/04/2024 Lipid Panel 08/04/2024 Progress Notes * Jayde JOSHUADOB:1970 (54 yo F)Acc No.[id number]:08/04/2024 Patient: Reena Jayde DUKES :1970 A ge:54 Y S ex:Female Address:[address] [place] [address], [address] * Refills Start Simvastatin Tablet, 20 MG, Orally, 30, 1 tablet in the evening, Once a day, 30, Refills=11 Subjective: * Chief Complaints: * L abs * Medical History: * Surgical History: * Hospitalization/Major Diagno stic Procedure: * Medications: Objective: * Vitals: * Physical Examination: Assessment: * Assessment: 1. H yperlipidemia - E78.5 (Primary) Plan: * Treatment: 2. O thers Start Simvastatin Tablet, 20 MG, 1 tablet in the evening, Orally, Once a day, 30, 30, Refills 11.? * Procedure Codes: * true * Date: Generated for Teri dee/Arturo/eTphismitting on: 0 11/23/2024 07:35 AM EDT
--- OUTSIDE RECORDS SUMMARY | 2024-11-17 09:00 | XMS_ITS ---
Author Organization [facility] in [place] Address [address] [place] [address] Care Team Providers Care Ncr Operator Name Role Phone Eliot Dee Primary Care Provider [phone] Allergies No Known Allergies REASON FOR VISIT work pe, She is due for some repeat labs, she is aware and will get those done, Patient stopped taking the simvastatin- terrible leg cramping Social History Tobacco Use: Social History Observation Description Date Details (start date - stop date) Never Smoker NA - NA Tobacco Use/Smoking Question Answer Notes Patient is a nonsmoker Tobacco Control (Standard) Question Answer Notes Tobacco use: Nonsmoker Vital Signs Weight 196.2 lbs 11/17/2024 Height 67 in 11/17/2024 Blood pressure systolic 152 mm Hg 11/18/19 25 Blood pressure diastolic 94 mm Hg 025 BMI 30.73 kg/m2 11/17/2024 Procedures Procedure Date Ordered Date Performed Result Body Sit e EKG w Interp & Report - performed 11/17/2024 N/ A Holter Monitor - 3 days up to 14 days 11/17/2024 N/A Encounters Encounter Location Date Provider Diagnosis [facility] [address] [place] [address] 11/17/2024 Eliot Dee Well adult Z00.00 an d Palpitation R00.2 Assessments Encounter Date Diagnosis (ICD Code) Assessment Notes Treatment Notes Treatment Clinical Notes Section Notes 11/17/2024 Well adult (ICD-10 - Z00.00) 11/17/2024 Palpitation (ICD-10 - R00.2) Plan Of Treatment Pending Test Test Name Order Date EKG w Interp & Report - performed 2024 MAGNESIUM 11/17/2024 THYROID PANEL (T4/TSH/FREE T3) 5 Holter Monitor - 3 days up to 14 days Procedure Notes * Category Sub-Category Detail Notes EKG w/Interp Interpretation: NSR - no PAC's Progress Notes * Jayde JOSHUADOB:1970 (54 yo F)Acc No.[id number]:11/17/2024 Progress Note Patient: Jayde DARNELL Provider: Taty Dee ([facility])MD :1970 A ge:54 Y S ex:Female Date:11/17/2024 Address:[address] [place], [place] [id number] Check In:01:01 PM ESTCheck O ut:01:55 PM EST Subjective: * Chief Complaints: * Ernestine Salas is due for some repeat labs, she is aware and will get those donePatient stopped taking the simvastatin- terrible leg cramping * HPI: G eneral: Bp up hgere - but lots of strwess hurried here can feel feel palpitationa nd watch has picked it up also - feel it a coulple time a month can feel flutting in abd at time joselyn. * ROS: E ENT: hearing changes d enies. v isual changes d enies.?non-healing mouth sores d enies. s wollen glands or neck lumps d enies. h oarseness d enies. s ore throat d enies. d ifficulty swallowing d enies. n ose bleeds d enies. n juan congestion d enies. e ar ache d enies. e ar discharge?denies. r inging in ears d enies. l ight sensitivity d enies. e ye pain d enies. b lurring d enies. e ye irritation d enies. d ouble vision d enies.?vision loss d enies. G eneral/Constitutional: Sweats: D enies. F atigue d enies. S leep problems d enies. A norexia d enies. M alaise d enies. W eight loss d enies.?Fatigue or Weakness d enies. F ever or Chills d enies. C ardiovascular: Shortness of Breath w/lying flat d enies. L ightheadedness/dizziness d enies. C hest tightness/ heavy pressure d enies. S welling of legs, ankles, or feet d enies. W aking up with shortness of breath d enies. C hest pain denies. P alpitations d enies. W eight gain d enies. R espiratory: Chronic or frequent cough d enies. C oughing up blood?denies. D ifficulty breathing d enies. P roductive cough d enies. S noring?denies. S hortness of breath that awakens from sleep (PND) d enies. C hest pain d enies. S putum production d enies. W heezing d enies. M usculoskeletal: Joint pain d enies. J oint Fluid d enies. B ack pain d enies. K nee pain d enies. N ozzy pain d enies. J oint Stiffness d enies. M uscle cramps d enies. W eakness of muscles d enies. A rthritis d enies. M uscle aches d enies. P ain in shoulder(s) d enies. S wollen joints d enies. * Active Problem List M72.2 Plantar fascial fibr omatosis Modified On:02/23/2024/U Status:confirmed M54.12 Cervical radicular p ain Modified On:05/04/2023/U Status:confirmed G57.91 Unspecified mononeur opathy of right lower limb Modified On:02/23/2024/U Status:confirmed M50.30 Other cervical disc degeneration, unspecified cervical region Modified On:03/13/2023/U Status:confirmed M54.31 Sciatica, right side Modified On:02/23/2024/U Status:confirmed J01.90 Acute sinus infectio n Modified On:04/20/2023/U Status:confirmed M54.50 Low back pain at mul tiple sites Modified On:09/21/2023/U Status:confirmed R25.2 Cramps of lower extr emity Modified On:10/08/2023/U Status:confirmed E78.5 Hyperlipidemia Modified On:10/14/2023/U Status:confirmed M85.80 Osteopenia Modified On:01/29/2024/U Status:confirmed Z00.00 Well adult Modified On:07/25/2024/U Status:confirmed Z78.9 Statin intolerance Modified On:11/17/2024/U Status:confirmed * Medical History: * Surgical History: c ervical spine c3-c7 sx 05/20/23Ganglion Cyst Removal- Rt Foot C3-C7 surgery 06/06cyst removal/ plantar fasciitis sx 2004 * Hospitalization/Major Diagno stic Procedure: D enies Past Hospitalization * Family History: F ather: alive. M other: alive. * Social History: T obacco Use: T obacco Control (Standard) T obacco use: N onsmoker Tobacco Use/Smoking P atient is a n onsmoker * Medications: D iscontinuedAmoxicillin-Pot Clavulanate 875-125 MG Tablet 1 tablet Orally every 12 hrs Gabapentin 300 MG Capsule 1 capsule Orally Once a day Indocin(Indomethacin) 50 MG Suppository 1 suppository Rectal Twice a day Simvastatin 20 MG Tablet 1 tablet in the evening Orally Once a day Medication List reviewed and reconciled with the patientDiscontinued Amoxicillin-Pot Clavulanate 875-125 MG Tablet 1 tablet Orally every 12 hrs Discontinued Gabapentin 300 MG Capsule 1 capsule Orally Once a day Discontinued Indocin(Indomethacin) 50 MG Suppository 1 suppository Rectal Twice a day Discontinued Simvastatin 20 MG Tablet 1 tablet in the evening Orally Once a day Medication List reviewed and reconciled with the patient * Allergies: N .K.D.A.no[Allergies Verified] Objective: * Vitals: W t:196.2lbs, Ht: 67 in, BP:152/94mm Hg, BMI:30.73Index, Ht-cm: 170.18 cm, Wt-k kg. * Examination: P hysical Exam: GENERAL: w ell developed, well nourished, in no acute distress. HEAD: n ormocephalic/atraumatic. EYES: p upils equal, round and reactive to light, conjunctivae and sclerae normal. EARS: n o deformity or lesion of external ear, canals and TM appear normal bilaterally, TM's intact, not inflamed with normal light reflex, hearing grossly normal to conversational speech. NOSE: n o deformity, discharge, inflammation, or lesions.? MOUTH: m ucous membranes moist, normal oropharynx and posterior pharynx without lesions or exudates, tongue normal, dentition normal. NECK: n ozzy supple, no masses or palpable cervical nodes, trachea midline, thyroid without nodules, masses, tenderness, or enlargement. CHEST: n o chest wall deformity, no chest wall tenderness.? LUNGS: n ormal respiratory effort and clear to auscultation, no wheezes, rales, or rhonchi, good air exchange. CARDIO: r egular rate and rhythm, normal S1 and S2, nor murmur, rub, or gallop. PULSES: n ormal capillary refill. ABDOMEN: s oft, non-distended, non-tender, no masses. MUSCULOSKELETAL: n o deformity or scoliosis noted, normal range of motion, joints normal, no erythema, edema, effusion, or ecchymosis. EXTREMITY: n o clubbing, cyanosis, edema, or deformity with normal ROM in both upper and lower bilateral extremities. NEUROLOGIC: g rossly normal. SKIN: n o rashes, ulcerations, or suspicious lesions. LYMPH NODES: n o cervical adenopathy, nodes normal. MENTAL STATUS: a lert and oriented x3, normal mood and affect. Assessment: * Assessment: 1. W ell adult - Z00.00 (Primary) 2 . P alpitation - R00.2 Plan: * Treatment: 2.?Palpitation?LAB: MAGNESIUM ?LAB: THYROID PANEL (T4/TSH/FREE T3) ?Procedure: EKG w Interp & Report - performed * Procedures: E KG w/Interp: Interpretation: N SR - no PAC's. e kg. * Procedure Codes: 9 3000 EKG, WINTERP. * Preventive Medicine: Screenings/Counseling: B [place] ACTION PLAN Above Normal BMI Follow-up D ietary management education, guidance, and counseling * * Sign off status: Completed Visit Status: C HK (Check Out) true * Provider: Taty Dee ([facility])MD Date: 11/17/2024 Generated for Printi ng/Faxing/eTransmitting on: 11/23/2024 07:34 AM EDT History and Physical Notes * HPI (History of Present Illness) Category Sub-Category Detail Notes Category Not es General Bp up hgere - but lots of strwess hurried here can feel feel palpitationa nd watch has picked it up also - feel it a coulple time a month can feel flutting in abd at time joselyn Examination Category Sub-Category Detail Notes Category Not es Physical Exam GENERAL: well developed, well nourished, in no acute distress HEAD: normocephalic/atraum atic EYES: pupils equal, round and reactive to light, conjunctivae and sclerae normal EARS: no deformity or lesi on of external ear, canals and TM appear normal bilaterally, TM's intact, not inflamed with normal light reflex, hearing grossly normal to conversational speech NOSE: no deformity, discha rge, inflammation, or lesions MOUTH: mucous membranes richelle st, normal oropharynx and posterior pharynx without lesions or exudates, tongue normal, dentition normal NECK: neck supple, no mass es or palpable cervical nodes, trachea midline, thyroid without nodules, masses, tenderness, or enlargement CHEST: no chest wall deform ity, no chest wall tenderness LUNGS: normal respiratory e ffort and clear to auscultation, no wheezes, rales, or rhonchi, good air exchange CARDIO: regular rate and rhy thm, normal S1 and S2, nor murmur, rub, or gallop PULSES: normal capillary ref ill ABDOMEN: soft, non-distended, non-tender, no masses RECTAL: MUSCULOSKELETAL: no deformity or scol iosis noted, normal range of motion, joints normal, no erythema, edema, effusion, or ecchymosis EXTREMITY: no clubbing, cyanosi s, edema, or deformity with normal ROM in both upper and lower bilateral extremities NEUROLOGIC: grossly normal SKIN: no rashes, ulceratio ns, or suspicious lesions LYMPH NODES: no cervical adenopat hy, nodes normal MENTAL STATUS: alert and oriented x 3, normal mood and affect
--- OUTSIDE RECORDS SUMMARY | 2024-11-17 09:27 | XMS_ITS ---
Author Organization [facility] in [place] Address [address] [place] [address] Care Team Providers Care Felling Bucking Supervisor Name Role Phone Eliot Dee Primary Care Provider REASON FOR VISIT Add dx Problems Problem Type SNOMED Code ICD Code Onset Dates Problem Status W/U Status Risk Notes Problem Statin not tolerated (475000977) Statin intolerance (Z78.9) Active confirmed Encounters Encounter Location Date Provider Diagnosis [facility] [address] [place] [address] 11/17/2024 Eliot Dee Plan Of Treatment No Information Progress Notes * Jayde REYESDOB:1970 (54 yo F)Acc No.[id number]:11/17/2024 Patient: Jayde DARNELL :1970 A ge:54 Y S ex:Female Address:[address] [place] [address], [phone] * true * Date: Generated for Osbaldoi leila/Eddieg/eTransmitting on: 0 11/23/2024 07:35 AM EDT
--- OUTSIDE RECORDS SUMMARY | 2024-11-23 07:34 | XMS_ITS | Patient Health Record ---
Author Organization [facility] Address [address] [place] [address] Care Team Providers Care Human Resources Partner Name Role Phone Rod Dee Primary Care Provider [place] Reese Heath Unavailable [phone] Kayla Randle Unavailable [phone] Reason For Referral No Information Medications Medication SIG (Take, Route, Fr equency, Duration) Notes Start Date End Date Status Robaxin Active Flexeril 10 mg 1 tab(s) orally 3 times a day 08/20 Active simvastatin Active gabapentin Active Flexeril 10 mg 1 tab(s) orally 3 ti mes a day prn muscle spasms 05/15/2023 Active desvenlafaxine Activ e Indocin Active Flexeril 10 mg 1 tab(s) orally 3 times a day 07/02 Active Flexeril 10 mg 1 tab(s) orally 3 times a day 06/10 Active Social History Tobacco Use: Social History Observation Description Date Details (start date - stop date) Never Smoker NA - NA Smoking History Question Answer Notes Smoking Status NonSmoker Problems Problem Type SNOMED Code ICD Code Onset Dates Problem Status W/U Status Risk Notes Problem 16201595 Cervical spinal stenosis (M48.02) Active confirmed Problem 197233706 Arthrodesis status (Z98.1) Active confirmed Problem Muscle spasm (09763485) Muscle spasm (M62.838) Active confirmed Problem 41089672 Radiculopathy, cervical region (M54.12) Active confirmed Problem 869276057 Obesity, unspecified (E66.9) Active confirmed Problem 08504681 Other cervical disc degeneration at C4-C5 level (M50.321) Active confirmed Problem 62281670 Other cervical disc degeneration at C5-C6 level (M50.322) Active confirmed Problem 79668864 Other cervical disc degeneration at C6-C7 level (M50.323) Active confirmed Problem 67264078 Other cervical disc degeneration, high cervical region (M50.31) Active confirmed Problem 229867618 Encounter for other orthopedic aftercare (Z47.89) Active confirmed Problem 714437508 Body mass index [BMI] 30.0-30.9, adult (Z68.30) Active confirmed Problem 45909550 Intractable headache, unspecified chronicity pattern, unspecified headache type (R51.9) Active confirmed Vital Signs Height 5 ft 7 in in 06/03/2024 Weight 195 lbs 06/03/2024 BMI 30.54 06/03/2024 Encounters Encounter Location Date Provider Diagnosis [address] [address] 12/04/2023 [facility] Aftercare following surgery of the musculoskeletal system Z47.89 ; Intractable headache, unspecified chronicity pattern, unspecified headache type R51.9 ; Muscle spasm M62.838 and Arthrodesis status Z98.[address] [place] [address] 06/03/2024 [facility] Arthrodesis status Z98.1 and Encounter for other orthopedic aftercare Z47.89 Assessments Encounter Date Diagnosis (ICD Code) Assessment Notes Treatment Notes Treatment Clinical Notes Section Notes 12/04/2023 Aftercare following surgery of the musculoskeletal system (ICD-10 - Z47.89) 1. 6 months s/p a C3-6 ACDF 12/04/2023 Intractable headache, unspecified chronicity pattern, unspecified headache type (ICD-10 - R51.9) 1. 6 months s/p a C3-6 ACDF 06/03/2024 Arthrodesis status (ICD-10 - Z98.1) 1. 1 year s/p C3-6 ACDF 06/03/2024 Encounter for other orthopedic aftercare (ICD-10 - Z47.89) 1. 1 year s/p C3-6 ACDF 12/04/2023 Muscle spasm (ICD-10 - M62.838) 1. 6 months s/p a C3-6 ACDF 12/04/2023 Arthrodesis status (ICD-10 - Z98.1) 1. 6 months s/p a C3-6 ACDF 12/04/2023 Other Patient continues to do well from a postoperative standpoint. We did talk again about finding a comfortable supportive pillow for sleeping to help with her neck pain in the morning. She will follow-up in 6 months for her last postop recheck. The patient is very much in agreement with the treatment and/or diagnostic plan set forth and all questions were answered to the patient's satisfaction. Thanks once again. If we can be of further service to your patients with disorders of the spine, cervical, thoracic, or lumbar, please do not hesitate to contact Dr. Shrestha. Best regards, 1. 6 months s/p a C3-6 ACDF 06/03/2024 Other Patient is doing well 1 year postoperatively from a C3-6 ACDF. We can see her back on an as-needed basis. The patient is very much in agreement with the treatment and/or diagnostic plan set forth and all questions were answered to the patient's satisfaction. Thanks once again. If we can be of further service to your patients with disorders of the spine, cervical, thoracic, or lumbar, please do not hesitate to contact Dr. Shrestha. Best regards, 1. 1 year s/p C3-6 ACDF Plan Of Treatment Pending Test Test Name Order Date Cervical spine,ap,lat,flex,ext - 72996 0 03/31/2023 Cervical spine,ap,lat,flex,ext - 65229 0 06/03/2024 Cervical spine 2 v - 88681 07/03/2023 Cervical spine 2 v - 78013 12/04/2023 Cervical spine 2 v - 79466 08/21/2023 Rittman J Cervical Collar OTS 05/15/2023 Future Test Test Name Order Date Chest 2 views - 05938 04/15/2023 CBC 04/15/2023 PT/PTT 04/15/2023 BMP 04/15/2023 MRSA (Bilateral Nares) PCR 04/15/2023 EKG 04/15/2023 Type and Cross Blood 2 units 04/15/2023 Insurance Providers Payer Name Payer Address Payer Phone Subscriber Number Group Number Insured Name Patient Relationship to Insured Coverage Start Date Coverage End Date [employer] [address] [place] [address] [id number] THERESA JOSHUA Self - patient is the insured Medical (General) History Medical History History ICD Code Have you been seen by a dentist in the l ast year?: Yes Latex Allergy: Yes Asthma Healthcare worker: Yes Surgical History Surgery Date(Month/Year) C3-6 ACDF 05/2023 Cyst in foot
--- OUTSIDE RECORDS SUMMARY | 2024-11-23 07:34 | XMS_ITS | Encounter Summary ---
Author Organization [facility] Address [address] [place] [address] Care Team Providers Care Cycle Liaison Name Role Phone Rod Dee MD Primary Care Provider [phone] Encounter Details Date Type Department Care Team (Late Contact Info) Description 11/18/2023 Clinisync Result Encounter [facility] External Department Unsolicited Willem Donato DO [address], [facility] Social History Tobacco Use Types Packs/Day Years Used Date Smoking Tobacco: Never Alcohol Use Standard Drinks/Week Comments Yes 0 (1 standard drink = 0.6 oz pure alcohol) Alcohol: 1 or 2 drinks on a typical day/monthly or less Caffeine: 2-3 cups/day Comments Unknown Sex and Gender Information Value Date Recorded Sex Assigned at Female 09/03/2022 11:32 AM EDT Legal Sex Female 7:20 PM EDT Gender Identity Female 09/03/2022 11:32 AM EDT Sexual Orientation Not on file documented as of this encounter Plan of Treatment Upcoming Encounters Date Type Department Care Team (Late Contact Info) Description 01/03/2025 9:00 AM EDT Office Visit [facility] [address] [place] [id number] Willem Donato DO [address] [place] [address] documented as of this encounter Procedures Procedure Name Priority Date/Time Associated Diagnosis Comments MM TOMOSYNTHESIS SCREENING BI 11/18/2023 2:12 PM EDT documented in this encounter Results * MM TOMOSYNTHESIS SCREENING BI (11/18/2023 2:12 PM EDT) Anatomical Region Laterality Modality Other 11/18/2023 2:12 PM EDT Narrative 11/18/2023 2:13 [place] [address] Mammography Report Signed Patient: THERESA JOSHUA MR#: [id number] : 1970 Acct:[id number] Age/Sex: 53 / F ADM Date: 11/13/23 Loc: MAMMO Attending Dr: Willem Donato D.O. Ordering Physician: Willem Donato D.O. Results: Date of Service: 11/13/23 Follow Up: Procedure(s): MM tomosynthesis screening BI Accession Number(s): [id number] cc: Willem Donato D.O.; Rod Dee M.D. Patient Name: THERESA JOSHUA MR#: [id number] : 1970 Exam Date: 11/13/2023 Ordering Doctor: DR Willem Donato . RADIOLOGY REPORT PROCEDURE: MM TOMOSYNTHESIS SCREENING BI COMPARISON: MM TOMOSYNTHESIS SCREENING BI, 11/10/2022. MG MAMM SCREEN 3D HIEU CAD, 10/28/2021. MG MAMM SCREEN 3D HIEU CAD, 10/26/2020. MG MAMM HIEU SCRN W CAD DIG, 01/20/2013. INDICATIONS: Screening Calculator Name NCI Breast Cancer Risk Assessment Tool 5 Year Breast Cancer Risk 1.20% Lifetime Breast Cancer Risk 9.40% Personal Breast Cancer No Personal Ovarian Cancer No Treatments None Family Cancers Cousin-maternal with breast cancer at age 50; Grandmother-maternal with ovarian cancer at age 80. LOCATION: [facility] BREAST COMPOSITION: There are scattered areas of fibroglandular density. FINDINGS: DIAGNOSTIC CATEGORY 2--BENIGN FINDING: RIGHT BREAST: No significant suspicious finding. Stable, chronic benign-appearing lymph node posterior upper-outer quadrant. No significant change has occurred. LEFT BREAST: No significant suspicious finding. No significant change has occurred. RECOMMENDATIONS: ROUTINE MAMMOGRAM AND CLINICAL EVALUATION IN 12 MONTHS. PLEASE NOTE: A NORMAL MAMMOGRAM DOES NOT EXCLUDE THE POSSIBILITY OF BREAST CANCER. A CLINICALLY SUSPICIOUS PALPABLE LUMP SHOULD BE BIOPSIED. Dictated by: Kan Salas M.D. on 11/18/2023 at 14:08 Approved by: Kan Salas M.D. on 11/18/2023 at 14:12 Dictated By: Kan Salas M.D. Signed By: 11/18/23 1413 DD/ 1412 TD/TT: Tow Feeder: Procedure Note Radiology, Radiologist, MD - 11/18/2023 [place] [address] Mammography Report Signed Patient: THERESA JOSHUA R#: [id number] : 1970Acct:[id number] Age/Sex: 53 / FADM Date: 11/13/23 Loc: MAMMO Attending Dr: Willem Donato D.O. Ordering Physician: Willem Donato D.O.Results: Date of Service: 11/13/23Follow Up: Procedure(s): MM tomosynthesis screening BI Accession Number(s): [id number] cc: Willem Donato D.O.; Rod Dee M.D. Patient Name: THERESA JOSHUA MR#: [id number] : 1970 Exam Date: 11/13/2023 Ordering Doctor: DR Willem Donato . RADIOLOGY REPORT PROCEDURE: MM TOMOSYNTHESIS SCREENING BI COMPARISON: MM TOMOSYNTHESIS SCREENING BI, 11/10/2022. MG MAMM [id number] HIEU CAD, 10/28/2021. MG MAMM SCREEN 3D HIEU CAD, 10/26/2020. MG MAMM BILSCRN W CAD DIG, 01/20/2013. INDICATIONS: Screening Calculator Name NCI Breast Cancer Risk Assessment Tool 5 Year Breast Cancer Risk 1.20% Lifetime Breast Cancer Risk 9.40% Personal Breast Cancer No Personal Ovarian Cancer No Treatments None Family Cancers Cousin-maternal with breast cancer at age 50; Grandmother-maternal with ovarian cancer at age 80. LOCATION: [facility] BREAST COMPOSITION: There are scattered areas of fibroglandulardensity. FINDINGS: DIAGNOSTIC CATEGORY 2--BENIGN FINDING: RIGHT BREAST: No significant suspicious finding. Stable, chronic benign-appearing lymph node posterior upper-outer quadrant. Nosignificant change has occurred. LEFT BREAST: No significant suspicious finding. No significant changehas occurred. RECOMMENDATIONS: ROUTINE MAMMOGRAM AND CLINICAL EVALUATION IN 12 MONTHS. PLEASE NOTE: A NORMAL MAMMOGRAM DOES NOT EXCLUDE THE POSSIBILITY OFBREAST CANCER. A CLINICALLY SUSPICIOUS PALPABLE LUMP SHOULD BE BIOPSIED. Dictated by: Kan Salas M.D. on 11/18/2023 at 14:08 Approved by: Kan Salas M.D. on 11/18/2023 at 14:12 Dictated By: Kan Salas M.D. Signed By:11/18/23 1413 DD/ 1412 TD/TT: Tow Feeder: Willem Donato DO [facility] Final Result documented in this encounter Visit Diagnoses Not on filedocumented in this encounter Care Teams Cycle Liaison Relationship Specialty Start Date End Date Rod Dee MD PCP - General Family Medicine 12/23/22 documented as of this encounter
--- OUTSIDE RECORDS SUMMARY | 2024-11-23 07:35 | XMS_ITS | Encounter Summary ---
Author Organization [facility] Address [address] [place] [address] Care Team Providers Care Jig Grinder Set Up Operator Name Role Phone Rod Dee MD Primary Care Provider [phone] Encounter Details Date Type Department Care Team (Late Contact Info) Description 01/27/2024 Clinisync Result Encounter [facility] External Department Unsolicited Dru Donato DO [address], [facility] Social History Tobacco Use Types Packs/Day Years Used Date Smoking Tobacco: Never Alcohol Use Standard Drinks/Week Comments Yes 0 (1 standard drink = 0.6 oz pure alcohol) Alcohol: 1 or 2 drinks on a typical day/monthly or less Caffeine: 2-3 cups/day Comments No Sex and Gender Information Value Date Recorded Sex Assigned at Female 09/03/2022 11:32 AM EDT Legal Sex Female 7:20 PM EDT Gender Identity Female 09/03/2022 11:32 AM EDT Sexual Orientation Not on file documented as of this encounter Plan of Treatment Upcoming Encounters Date Type Department Care Team (Late Contact Info) Description 01/03/2025 9:00 AM EDT Office Visit [facility] [address] [place] [id number] Dru Donato DO [address] [place] [address] documented as of this encounter Procedures Procedure Name Priority Date/Time Associated Diagnosis Comments XR DEXA AXIAL SKELETON 01/27/2024 2:16 PM EST documented in this encounter Results * XR DEXA AXIAL SKELETON (01/27/2024 2:16 PM EST) Anatomical Region Laterality Modality Other 01/27/2024 2:16 PM EST Narrative 01/27/2024 2:18 [place] [address] XRay Report Signed Patient: THERESA JOSHUA MR#: [id number] : 1970 Acct:[id number] Age/Sex: 53 / F ADM Date: 01/25/24 Loc: [facility] Attending Dr: Dru Donato D.O. Ordering Physician: Dru Donato D.O. Date of Service: 01/25/24 Procedure(s): XR DEXA axial skeleton Accession Number(s): [id number] cc: Dru Donato D.O.; Rod Dee M.D. [facility] [place] [id number] Patient Name: THERESA JOSHUA MRN: [id number] date: 1970 Sex: F Assigned Patient Location: [facility] Current Patient Location: Accession/Order Number: [id number] Exam Date: 01/25/2024 10:03 Report Date: 01/27/2024 14:16 At the request of: DRU DONATO Procedure: XR DEXA axial skeleton EXAMINATION: XR DEXA axial skeleton, 01/25/2024 10:03 AM EST HISTORY: POSTMENOPAUSAL STATE COMPARISON: None. TECHNIQUE: Dual-energy X-ray absorptiometry (DEXA) bone density study performed for the axial skeleton. FINDINGS: Bone mineral density lumbar spine L1-L4 measures 1.242 g/sq cm for T score 0.5. Normal Lowest bone mineral density right femoral neck measures 0.798 g percent meters squared. T score -1.7. Osteopenia XR/XR DEXA axial skeleton IMPRESSION: Osteopenia. Moderate fracture risk Pharmacologic treatment recommendations * No uniform recommendation applies to all patients. Management plans must be individualized. * Consider initiating pharmacologic treatment in postmenopausal women and men >= 50 years of age who have the following: Primary fracture prevention: * T-score <= - 2.5 at the femoral neck, total hip, lumbar spine, 33% radius (some uncertainty with existing data) by DXA. * Low bone mass (osteopenia: T-score between - 1.0 and - 2.5) at the femoral neck or total hip by DXA with a 10-year hip fracture risk >= 3% or a 10-year major osteoporosis-related fracture risk >= 20% (i.e., clinical vertebral, hip, forearm, or proximal humerus) based on the [place]-adapted FRAXregistered model. Secondary fracture prevention: * Fracture of the hip or vertebra regardless of BMD [4, 5]. * Fracture of proximal humerus, pelvis, or distal forearm in persons with low bone mass (osteopenia: T-score between - 1.0 and - 2.5). The decision to treat should be individualized in persons with a fracture of the proximal humerus, pelvis, or distal forearm who do not have osteopenia or low BMD [12, 13]. Tami MS, Agnes SL, Smooth KL, Dwayne EM, Eugenie KG, AJ, Christoph ES. The clinician's guide to prevention and treatment of osteoporosis. Osteoporos Int. 2021;33(10):4949-4843. doi: 10.1007/x92988-111-15558-r. Epub 2021Jul 11. Erratum in: Osteoporos Int. 2021Oct 10;: PMID: 85213547; PMCID: [id number]. Electronically authenticated by: AL CAMPOS Date: 01/27/2024 14:16 Dictated By: Al Campos M.D. Signed By: 01/27/24 1418 DD/ 15 TD/TT: Special Needs Nanny: Procedure Note Radiology, Radiologist, - 01/27/2024 [place] [address] XRay Report Signed Patient: GAURAVHERNAN BRASHERERIE JMR#: [id number] : 1970Acct:[id number] Age/Sex: 53 / FADM Date: 01/25/24 Loc: [facility] Attending Dr: Dru Donato D.O. Ordering Physician: Dru Donato D.O. Date of Service: 01/25/24 Procedure(s): XR DEXA axial skeleton Accession Number(s): [id number] cc: Dru Donato D.O.; Rod Dee M.D. [place] [id number] Patient Name: THERESA JOSHUA MRN: [facility]:[id number] date: 1970 Sex: F Assigned Patient Location: [facility] Current Patient Location: Accession/Order Number: [id number] Exam Date: 01/25/2024 10:03 Report Date: 01/27/2024 14:16 At the request of: DRU DONATO Procedure: XR DEXA axial skeleton EXAMINATION: XR DEXA axial skeleton, 01/25/2024 10:03 AM EST HISTORY: POSTMENOPAUSAL STATE COMPARISON: None. TECHNIQUE: Dual-energy X-ray absorptiometry (DEXA) bone density study performed for the axial skeleton. FINDINGS: Bone mineral density lumbar spine L1-L4 measures 1.242 g/sq cm for T score 0.5. Normal Lowest bone mineral density right femoral neck measures 0.798 g percentmeters squared. T score -1.7. Osteopenia XR/XR DEXA axial skeleton IMPRESSION: Osteopenia. Moderate fracture risk Pharmacologic treatment recommendations * No uniform recommendation applies to all patients. Management plans mustbe individualized. * Consider initiating pharmacologic treatment in postmenopausal women andmen >= 50 years of age who have the following: Primary fracture prevention: * T-score <= - 2.5 at the femoral neck, total hip, lumbar spine, 33%radius (some uncertainty with existing data) by DXA. * Low bone mass (osteopenia: T-score between - 1.0 and - 2.5) at thefemoral neck or total hip by DXA with a 10-year hip fracture risk >= 3% or [id number] major osteoporosis-related fracture risk >= 20% (i.e., clinical vertebral, hip, forearm, or proximal humerus) based on the [place]-adapted FRAXregisteredmodel. Secondary fracture prevention: * Fracture of the hip or vertebra regardless of BMD [4, 5]. * Fracture of proximal humerus, pelvis, or distal forearm in persons withlow bone mass (osteopenia: T-score between - 1.0 and - 2.5). The decision totreat should be individualized in persons with a fracture of the proximalhumerus, pelvis, or distal forearm who do not have osteopenia or low BMD [12, 13]. Tami MS, Agnes SL, Smooth KL, Dwayne EM, Eugenie KG, AJ,Christoph ES. The clinician's guide to prevention and treatment of osteoporosis.Osteoporos Int. 2021;33(10):6238-6347. doi: 10.1007/z72954-501-76573-s. Ep. Erratum in: Osteoporos Int. 2021Oct 10;: PMID: 57164023; PMCID: [id number]. Electronically authenticated by: AL CAMPOS Date: 01/27/2024 14:16 Dictated By: Al Campos M.D. Signed By:01/27/24 1418 DD/ 141 TD/TT: Special Needs Nanny: [facility] Final Result documented in this encounter Visit Diagnoses Not on filedocumented in this encounter Care Teams Jig Grinder Set Up Operator Relationship Specialty Start Date End Date Rod Dee MD PCP - General Family Medicine 12/23/22 documented as of this encounter
--- OUTSIDE RECORDS SUMMARY | 2024-11-23 07:35 | XMS_ITS | Encounter Summary ---
Author Organization [facility] Address [address] [place] [address] Care Team Providers Care Appliquer Zigzag Name Role Phone Rod Dee MD Primary Care Provider [phone] Encounter Details Date Type Department Care Team (Late Contact Info) Description 02/08/2024 Orders Only [facility] [place] [address] Miley Anguiano LPN [address] [facility] [address] [place] [address] Social History Tobacco Use Types Packs/Day Years [...] 9:00 AM EDT Office Visit [facility] [place] [address] Willem Donato DO [address] [address] documented as of this encounter Procedures Procedure Name Priority Date/Time Associated Diagnosis Comments PAP SMEAR Routine 12/29/2023 12:00 AM EDT documented in this encounter Results * Pap Smear (12/29/2023 12:00 AM EDT) Swab Cervical swab / Unknown [facility] CYTOLOGY ORDERABLES Final Result EXTERNAL LAB documented in this encounter Visit Diagnoses Not on filedocumented in this encounter Care Teams Appliquer Zigzag Relationship Specialty Start Date End Date Rod Dee MD PCP - General Family Medicine 12/23/22 documented as of this encounter
--- OUTSIDE RECORDS SUMMARY | 2024-11-23 07:35 | XMS_ITS | CCD ---
Author Organization [facility] Care Team Providers Care Glove Sewer Name Role Phone Gabby Dee Primary Care Physician [phone] Morris CAGLE Attending Unavailable Morris CAGLE Attending [...] Unavailable HOY ., DR PIERRE Admitting Unavailable GWINNER, DR AL Shaikh Consulting Unavailable HOY ., DR PIERRE Attending Unavailable HOY ., DR PIERRE Primary Care Unavailable HOY ., DR PIERRE Consulting Unavailable HOY ., DR PIERRE Admitting Unavailable HOY ., DR PIERRE Attending Unavailable HOY ., DR PIERRE Admitting Unavailable HOY ., DR PIERER Primary Care Unavailable HOY ., DR PIERRE Consulting Unavailable HOY ., DR PIERRE Attending Unavailable HOY ., DR PIERRE Admitting Unavailable HOY ., DR PIERRE Primary Care Unavailable HOY ., DR PIERRE Consulting Unavailable GWINNER, DR AL Shaikh Consulting Unavailable HOY ., DR PIERRE Admitting Unavailable HOY ., DR PIERRE Attending Unavailable HOY ., DR PIERRE Primary Care Unavailable Gabby Dee MD Primary Care Provider [phone] DRU DONATO Attending Unavailable Allergies Allergy Classification Reported Allergen(s) Allergy Type Date of Onset Reaction(s) Facility (1 source) No Known Medication Allergies; Translations: [No Known Medication Allergies] Propensity to adverse reactions (disorder) [facility] Repository (2 sources) Baclofen Drug Allergy [facility] Repository Medications Current Medications Medication [...] GDLNon AGE GDLN ACOG TESTING Note . [facility] Comment on above: TESTS RESULT FLAG UN ITS REF RANGE LAB Clinician Provided Cytology Information Source.............Cervix;Endocervix No. of containers..01 ThinPrep Vial Age Algo ACOG Sheila... 30-65 01 FLAG LEGEND: L-Low Normal,H-High Normal,LL-Alert Low,HH-Alert High <-Panic Low,>-Panic High,A-Abnormal,AA-Critical Abnormal Performed at: 01 =G [address] [place] [address] Sharmaine Hall MD, HPV APTIMA Negative Negative [facility] Comment on above: This nucleic acid am plification test detects fourteen high- risk HPV types (16,18,31,33,35,39,45,51,52,56,58,59,66,68) without differentiation. Performed at: =G - [facility] [id number] Engineering Leader: Sharmaine Hall MD, Phone: [phone] Performed at: - [facility] [id number] Engineering Leader: Sharmaine Hall MD, Phone: [phone] IGP, APTIMA HPV, RFX 16/18,[address] [facility] Comment on above: TESTS RESULT FLAG U NITS REF RANGE LAB DIAGNOSIS: 02 NEGATIVE FOR INTRAEPITHELIAL LESION OR MALIGNANCY. Specimen adequacy: 02 Satisfactory for evaluation. Endocervical and/or squamous metaplastic cells (endocervical component) are present. Performed by: Mandy Luis, Physical Therapist Center Manager (ASCP) . 02 Note: Note 02 The [...] <-Panic Low,>-Panic High,A-Abnormal,AA-Critical Abnormal Performed at: [address] [address] Sharmaine Hall MD, BRUSH-SPATULA CERVIX ENDOCERVIX [facility] XR hand LT min 3V*on 023 XR hand LT min 3V* [address] [address] XRay Report Signed Patient: Theresa Reyes MR#: [id number] : 1970 Acct:[id number] Age/Sex: 52 / F ADM Date: 06/03/22 [place] [facility]: Type: [facility] Attending Dr: Diamond Case MD [...] Miguel Ramey M.D.06/03/2022 1:11 PM Dictation Location: [place] [address] Transcribed By: [facility] 06/03/22 1311 Dictated By: Miguel Ramey II, MD 06/03/22 1310 Signed By: 06/03/22 131 Normal [facility] XR hand LT min 3V* [facility] [employer] Other XR hand LT min 3V* [facility] Other XR hand LT min 3V* [address] [employer] Other XR hand LT min 3V* YULIANA Doshi [address] [employer] Other XR hand LT min 3V* XRay Report [employer] Other XR hand LT min 3V* Signed [employer] Other XR hand LT min 3V* Patient: Theresa Reyes MR#: [id number] [employer] Other XR hand LT min 3V* [id number] [employer] Other XR hand LT min 3V* : 1970 Acct:[id number] [employer] Other XR hand LT min 3V* Age/Sex: 52 / F ADM Date: 06/03/22 [employer] Other XR hand LT min 3V* Loc: [facility] Room: Type : REG CLI [employer] Other XR hand LT min 3V* Attending Dr: Benny Case MD [employer] Other XR hand LT min 3V* Copies to: Diamond Case MD [employer] Other XR hand LT min 3V* Ordering Provider: Diamond Case MD [employer] Other XR hand LT min 3V* Date of Service: 06/03/22 [employer] Other XR hand LT min 3V* XR/XR hand LT min 3V*: PAIN [employer] Other XR hand LT min 3V* XR hand LT min 3V* 06/03/2022 8:44 AM [employer] Other XR hand LT min 3V* SIGNS AND SYMPTOMS: Left thumb/first metacarpal pain [employer] Other XR hand LT min 3V* PROTOCOL: Frontal, lateral, and oblique radiographs of the left hand: [employer] Other XR hand LT min 3V* COMPARISON: None [employer] Other XR hand LT min 3V* FINDINGS: [employer] Other XR hand LT min 3V* The bones are in anatomic alignment. There is mild degenerative change at the first carpometacarpal [employer] Other XR hand LT min 3V* junction. There is preservation of the joint spaces, otherwise. There is no fracture or dislocation. [employer] Other XR hand LT min 3V* No significant soft tissue swelling. [employer] Other XR hand LT min 3V* XR/XR hand LT min 3V* [employer] Other XR hand LT min 3V* IMPRESSION: [employer] Other XR hand LT min 3V* No acute bony injury. [employer] Other XR hand LT min 3V* Mild degenerative fa cet noted at the base of the thumb. [employer] Other XR hand LT min 3V* Impression dictated by: Miguel Ramey M.D.06/03/2022 1:11 PM [place] [employer] Other XR hand LT min 3V* Dictation Location: [place] [address] [employer] Other XR hand LT min 3V* Transcribed By: KARRIE 06/03/22 [facility] [employer] Other XR hand LT min 3V* Dictated By: Miguel Ramey II, MD 06/03/[address] [place] [address] [employer] Other XR hand LT min 3V* Signed By: [employer] Other XR hand LT min 3V* 06/03/[address] [place] [address] [employer] Other Reminderson 05-15-2022 Reminders - From: Jessica Mims LPN To: N - Clinical; Sent: 05/15/2022 07:57:39 EST Show up: 04/06/2025 07:00:00 EST Subject: colonoscopy recall Due Date/Time: 05/07/2025 07:00:00 EST Reminder/Recall Patient is due for colonoscopy 05/07/2025 due to history of tubulovillous adenoma. Normal [facility] Pathology Noteon 05-09-2022 Pathology Note [id number] :127 Normal [facility] Outside Colonoscopyon 2022 Outside Colonoscopy [id number]#1.00C D:127 Normal [facility] PREG HCG QUALon 05-07-2022 , QUAL Negative Normal NEGATIVE [facility] Comment on above: Performed By: #### P REG #### [facility] [address] [place] [address] Dr. Hu Can Pre-Certification Formon Pre-Certification Form [id number]#1.00 CD:127 Normal [facility] Consent for Procedure/Surger yon 04-10-2022 Consent for Procedure/Surgery [id number]#1.00C D:127 Normal [facility] Facesheeton 04-10-2022 Facesheet [id number]#1.00C D:127 Normal [facility] General Surgery Office/Clini c Noteon 04-08-2022 General [...] (COVID-19) Ad26 vaccine 04/02/2020 Recorded Normal [facility] Comment on above: Result Comment: Elec tronically Signed By: JEFF PONCE, Morris R\.br\Date and Time Signed: 04/08/22 15:33 EST Covid-19 PCR (CVDTBH)on 02-13 SARS-CoV-2 (COVID-19) RNA CLARISSA+probe Ql (Unsp spec) Not detected Normal NOT DETECTED [facility] Comment on above: Result Comment: [...] for this test is supported by the Operational Risk Analyst of Health and Human Service's declaration that [...] used). Performed By: #### C VDTBH #### [facility] [address] [place] [address] Dr. Hu Can INFLUENZA A AND B AGon 02-26 [facility] SEE BELOW Normal [facility] Comment on above: Result Comment: Nega tive for Flu A protein angiten. Infection due to Flu A cannot be ruled out. Flu A angiten in the sample may be below the detection limit of the test. Performed By: #### I NFLUAB #### [facility] [address] [place] [address] Dr. Hu Can [facility] SEE BELOW Normal [facility] Comment on above: Result Comment: Nega tive for Flu B protein antigen. Infection due to Flu B cannot be ruled out. Flu B antigen in the sample may be below the detection limit of the test. Performed By: #### I NFLUAB #### [facility] [address] [place] [address] Dr. Hu Can INFLUENZA A AG Negative Normal NEGATIVE SEE COMMENT [facility] Comment on above: Performed By: #### I NFLUAB #### [facility] [address] [place] [address] Dr. Hu Can INFLUENZA B AG Negative Normal NEGATIVE SEE COMMENT [facility] Comment on above: Performed By: #### I NFLUAB #### [facility] [address] [place] [address] Dr. Hu Can INTERNAL CONTROLS Within Normal Limits Normal Wi thin Normal Limits [facility] Comment on above: Performed By: #### I NFLUAB #### [facility] [address] [place] [address] Dr. Hu Can CBC AUTO DIFFon 12-13-2021 BASO # 0.0 103/ul Normal 0.0-0.1 [facility] Comment on above: Performed By: #### C BC #### [facility] [address] [place] [address] Dr. Hu Can Basophils/100 WBC (Bld) 0.3 % Normal 0.2-2.0 [facility] Comment on above: Performed By: #### C BC #### [facility] [address] [place] [address] Dr. Hu Can EO # 0.1 103/ul Normal 0.0-0.7 [facility] Comment on above: Performed By: #### C BC #### [facility] [address] [place] [address] Dr. Hu Can Eosinophils/100 WBC (Bld) 1.1 % Normal 0.9-7.0 [facility] Comment on above: Performed By: #### C BC #### [facility] [address] [place] [address] Dr. Hu Can Erythrocyte distribution width (RBC) [Ratio] 13.7 % Normal 11.0-15.0 [facility] Comment on above: Performed By: #### C BC #### [facility] [address] [place] [address] Dr. Hu Can Hematocrit (Bld) [Volume fraction] 44.6 % Normal 36.0-48.0 [facility] Comment on above: Performed By: #### C BC #### [facility] [address] [place] [address] Dr. Hu Can Hemoglobin (Bld) [Mass/Vol] 14.5 g/dL Normal 12.0-16.0 [facility] Comment on above: Performed By: #### C BC #### [facility] [address] [place] [address] Dr. Hu Can IG # 0.02 10e3/ul Normal 0.00-0.03 [facility] Comment on above: Performed By: #### C BC #### [facility] [address] [place] [address] Dr. Hu Can IG % 0.3 % Normal 0.0-0.5 [facility] Comment on above: Performed By: #### C BC #### [facility] [address] [place] [address] Dr. Hu Can LYMPH # 2.3 103/ul Normal 1.2-3.8 [facility] Comment on above: Performed By: #### C BC #### [facility] [address] [place] [address] Dr. Hu Can Lymphocytes/100 WBC (Bld) 30.5 % Normal 20.5-60.0 [facility] Comment on above: Performed By: #### C BC #### [facility] [address] [place] [address] Dr. Hu Can MANUAL DIFF REQ NO Normal [facility] Comment on above: Performed By: #### C BC #### [facility] [address] [place] [address] Dr. Hu Can MCH (RBC) [Entitic mass] 29.1 pg Normal 26.7-34.0 [facility] Comment on above: Performed By: #### C BC #### [facility] [address] [place] [address] Dr. Hu Can MCHC (RBC) [Mass/Vol] 32.5 g/dL Normal 29.9-35.2 [facility] Comment on above: Performed By: #### C BC #### [facility] [address] [place] [id number] [address] Hu Can MCV (RBC) [Entitic vol] 89.6 fL Normal 81.0-99.0 [facility] Comment on above: Performed By: #### C BC #### [facility] [address] [place] [address] [address] Hu Can MONO # 0.5 103/ul Normal 0.3-0.8 [facility] Comment on above: Performed By: #### C BC #### [facility] [address] [place] [address] Dr. Hu Can Monocytes/100 WBC (Bld) 6.8 % Normal 1.7-12.0 [facility] Comment on above: Performed By: #### C BC #### [facility] [address] [place] [address] Dr. Hu Can NEUT # 4.6 103/ul Normal 1.4-6.5 [facility] Comment on above: Performed By: #### C BC #### [facility] [address] [place] [address] Dr. Hu Can Neutrophils/100 WBC (Bld) 61.0 % Normal 43.0-75.0 [facility] Comment on above: Performed By: #### C BC #### [facility] [address] [place] [address] Dr. Hu Can Platelet mean volume (Bld) [Entitic vol] 9.3 fL Critically low 9.5-13.5 [facility] Comment on above: Performed By: #### C BC #### [facility] [address] [place] [address] Dr. Hu Can PLT 296 103/ul Normal 150-450 [facility] Comment on above: Performed By: #### C BC #### [facility] [address] [place] [address] Dr. Hu Can RBC 4.98 106/ul Normal 4.20-5.40 [facility] Comment on above: Performed By: #### C BC #### [facility] [address] [place] [address] Dr. Hu Can WBC 7.5 103/ul Normal 4.0-11.0 [facility] Comment on above: Performed By: #### C BC #### [facility] [address] [place] [address] [address] Hu Can GLYCOHEMOGLOBIN A1Con 2021 ADA RECOMMENDATION SEE BELOW Normal [facility] Comment on above: Result Comment: ADA RECOMMENDED LIMIT 4.0 - 6.0 ADA THERAPEUTIC TARGET < 7.0 ACTION SUGGESTED > 7.0 Performed By: #### A 1C #### [facility] [address] [place] [address] [address] Hu Can Glucose [Mass/Vol] 114 mg/dL Normal [facility] Comment on above: Performed By: #### A 1C #### [facility] [address] [place] [address] [address] Hu Can HbA1c (Bld) [Mass fraction] 5.6 % Normal 4.5-6.2 [facility] Comment on above: Performed By: #### A 1C #### [facility] [address] [place] [address] [address] Hu Can LIPID PROFILEon 12-13-2021 CHOL-HDL RATIO NORM SEE BELOW Normal [facility] Comment on above: Result Comment: 3.3 - 4.4 LOW RISK 4.4 - 7.1 AVERAGE RISK 7.1 - 11.0 MODERATE RISK >11.0 HIGH RISK Performed By: #### T SH, CMP, LIPID ####[facility] [address] [place] [address]Dr. Hu Can Cholesterol [Mass/Vol] 279 mg/dL Critically high <=200 [facility] Comment on above: Performed By: #### T SH, CMP, LIPID ####[facility] [address] [place] [id number]. Hu Can Cholesterol in HDL [Mass/Vol] 50 mg/dL Normal 40-60 [facility] Comment on above: Performed By: #### T SH, CMP, LIPID ####[facility] [address] [place] [address]Dr. Hu Can Cholesterol in LDL [Mass/Vol] 197.8 mg/dL Normal [facility] Comment on above: Performed By: #### T SH, CMP, LIPID ####[facility] [address] [place] [address]Dr. Hu Can Cholesterol.total/ Cholesterol in HDL [Mass ratio] 5.6 {ratio} Normal [facility] Comment on above: Performed By: #### T SH, CMP, LIPID ####[facility] [address] [place] [address]Dr. Hu Can HDL NORMAL > or = 60 mg/dl - LO W CARDIOVASCULAR RISK <40 mg/dl - HIGH CARDIOVASCULAR RISK Normal [facility] Comment on above: Performed By: #### T SH, CMP, LIPID ####[facility] [address] [place] [address]Dr. Hu Can LDL CALC NORMAL SEE BELOW Normal [facility] Comment on above: Result Comment: <100 mg/dl OPTIMAL 100 - 129 mg/dl NEAR OR ABOVE OPTIMAL 130 - 159 mg/dl BORDERLINE HIGH 160 - 189 mg/dl HIGH >190 mg/dl VERY HIGH Performed By: #### T SH, CMP, LIPID ####[facility] [address] [place] [address]Dr. Hu Can Triglyceride [Mass/Vol] 156 mg/dL Critically high <=150 [facility] Comment on above: Performed By: #### T SH, CMP, LIPID ####[facility] [address] [place] [address]Dr. Hu Can VLDL CALC 31.2 mg/dL Normal [facility] Comment on above: Performed By: #### T SH, CMP, LIPID ####[facility] [address] [place] [address]Dr. Hu Can PROF 14(COMP METB)on 022 Albumin [Mass/Vol] 3.8 g/dL Normal 3.4-5.0 [facility] Comment on above: Performed By: #### T SH, CMP, LIPID ####[facility] [address] [place] [address]Dr. Hu Can Albumin/Globulin [Mass ratio] 1.2 {ratio} Normal [facility] Comment on above: Performed By: #### T SH, CMP, LIPID ####[facility] [address] [place] [address]Dr. Hu Can ALP [Catalytic activity/Vol] 74 U/L Normal 46-116 [facility] Comment on above: Performed By: #### T SH, CMP, LIPID ####[facility] [address] [place] [address]Dr. Hu Juan José ALT [Catalytic activity/Vol] 19 U/L Normal 14-59 [facility] Comment on above: Performed By: #### T SH, CMP, LIPID ####[facility] [address] [place] [address]Dr. Hu Can Anion gap [Moles/Vol] 11.0 mmol/L Normal [facility] Comment on above: Performed By: #### T SH, CMP, LIPID ####[facility] [address] [place], [place] [address]Dr. Hu Juan José AST [Catalytic activity/Vol] 12 U/L Critically low 15-37 [facility] Comment on above: Performed By: #### T SH, CMP, LIPID ####[facility] [address] [place], [place] [address]Dr. Hu Juan José Bilirubin [Mass/Vol] 0.7 mg/dL Normal 0.2-1.0 [facility] Comment on above: Performed By: #### T SH, CMP, LIPID ####[facility] [address] [place] [address]Dr. Hu Juan José Calcium [Mass/Vol] 8.7 mg/dL Normal 8.5-10.1 [facility] Comment on above: Performed By: #### T SH, CMP, LIPID ####[facility] [address] [place] [address]Dr. Hu Can Chloride [Moles/Vol] 102 mmol/L Normal 98-107 [facility] Comment on above: Performed By: #### T SH, CMP, LIPID ####[facility] [address] [place] [id number]. Hu Can CO2 [Moles/Vol] 28.2 mmol/L Normal 21.0-32.0 [facility] Comment on above: Performed By: #### T SH, CMP, LIPID ####[facility] [address] [place] [address]Dr. Hu Can Creatinine [Mass/Vol] 0.91 mg/dL Normal 0.55-1.02 [facility] Comment on above: Performed By: #### T SH, CMP, LIPID ####[facility] [address] [place] [address]Dr. Hu Can EGFR-AF TANZANIAN >60 Normal >=60 [facility] Comment on above: Performed By: #### T SH, CMP, LIPID ####[facility] [address] [place] [address]Dr. Hu Can EGFR-NON AF TANZANIAN >60 Normal >=60 [facility] Comment on above: Performed By: #### T SH, CMP, LIPID ####[facility] [address] [place] [id number]. Hu Can Globulin (S) [Mass/Vol] 3.3 g/dL Normal [facility] Comment on above: Performed By: #### T SH, CMP, LIPID ####[facility] [address] [place] [id number]. Hu Can Glucose [Mass/Vol] 105 mg/dL Normal 74-106 [facility] Comment on above: Performed By: #### T SH, CMP, LIPID ####[facility] [address] [place] [id number]. Hu Can Potassium [Moles/Vol] 4.2 mmol/L Normal 3.5-5.1 [facility] Comment on above: Performed By: #### T SH, CMP, LIPID ####[facility] [address] [place] [address]Dr. Hu Cna Protein [Mass/Vol] 7.1 g/dL Normal 6.4-8.2 [facility] Comment on above: Performed By: #### T SH, CMP, LIPID ####[facility] [address] [place] [id number]. Hu Can Sodium [Moles/Vol] 137 mmol/L Normal 136-145 [facility] Comment on above: Performed By: #### T SH, CMP, LIPID ####[facility] [address] [place] [address]Dr. Hu Can Urea nitrogen [Mass/Vol] 23.0 mg/dL Critically high 7.0-18.0 [facility] Comment on above: Performed By: #### T SH, CMP, LIPID ####[facility] [address] [place] [id number]. Hu Can Urea nitrogen/Creatinin e [Mass ratio] 25.3 mg/mg Normal [facility] Comment on above: Performed By: #### T SH, CMP, LIPID ####[facility] [address] [place] [address]Dr. Hu Can TSHon 12-13-2021 TSH 1.249 uIU/mL Normal 0.358-3.740 [facility] Comment on above: Performed By: #### T SH, CMP, LIPID ####[facility] [id number] [place] [address]Dr. Hu Can XR CSPINE MIN 4 VIEWSon [...] Date: 2021-12-07 19:38 Normal [facility] MG MAMM SCREEN 3D HIEU CADon 10-28-2021 MG MAMM SCREEN 3D HIEU CAD Patient: THERESA REYES Exam Date: 10/28/2021 : 1970 Gender:F Ordering : DR GABBY DEE . Admission #: [id number] Family : Order #: [id number] CLICK HERE TO VIEW EXAM RADIOLOGY REPORT [...] at age 80. LOCATION: [facility] BREAST COMPOSITION: Scattered areas fibroglandular [...] 10/28/2021 at 12:02 Normal [facility] Covid-19 PCR (CVDTB)on 09-15 SARS-CoV-2 (COVID-19) RNA CLARISSA+probe Ql (Unsp spec) Not detected Normal NOT DETECTED [facility] Comment on above: Result Comment: [...] for this test is supported by the [place] of Health and Human Service's declaration that [...] By: #### C VDTB #### [facility] [address], [place] [address] Dr. Hu Can Covid-19 PCR ([facility])on 09-14 SARS-CoV-2 (COVID-19) RNA CLARISSA+probe Ql (Unsp spec) Detected Critically abnormal NOT DETECTED [facility] Comment on above: Result Comment: This test is not yet approved or cleared by the [place] FDA. When there are no FDA-approved or cleared tests available, and other criteria are met, FDA can make tests available under an emergency access mechanism called an Emergency Use Authorization (EUA). The EUA for this test is supported by the Operational Risk Analyst of Health and Human Service's declaration that [...] be used). Performed By: #### C VDTB ####[facility] [address], [place] [address]XsDr. Hu Can Pathology Noteon 07-12-2021 Pathology Note [id number] D:127 Normal [facility] Vital Signs Date Time Vital Sign Value Performing Clinician Facility 12-29-2023 15:39-0400 Body height 170.2 cm [employer] Work Phone: [facility] 12-29-2023 15:39-0400 Body mass index (BMI) [Ratio] 30.23 kg/m2 [employer] Work Phone: [facility] 12-29-2023 15:39-0400 Body weight 87.54 kg [employer] Work Phone: [facility] 12-29-2023 15:39-0400 Diastolic blood pressure 82 mm[Hg] Dru Kinga DO Work Phone: [facility] 12-29-2023 15:39-0400 Systolic blood pressure 134 mm[Hg] Dru Kinga DO Work Phone: [facility] 09-02-2022 09:30-0400 Body height 170.18 cm [employer] Other [employer] Other 09-02-2022 09:30-0400 Body mass index (BMI) [Ratio] 30.85 kg/m2 [employer] Other [employer] Other 09-02-2022 09:30-0400 Body weight 89.36 kg Diamondgiorgi Case Other [employer] Other 04-08-2022 15:14-0500 Blood Pressure Location [facility] 04-08-2022 15:14-0500 Diastolic blood pressure 88 mm[Hg] Morris NILL [facility] [place] 04-08-2022 15:14-0500 Heart rate 72 /min Morris NILL [facility] [place] 04-08-2022 15:14-0500 Respiratory rate 16 /min Morris NILL [facility] [place] 04-08-2022 15:14-0500 Systolic blood pressure 128 mm[Hg] Morris NILL [facility] [place] Encounters Encounter Date Encounter Type Care Provider Facility Start: 02-15-2024 End: 02-15-2024 Phys/qhp telephone evaluation 5-10 min Dru Kinga DO Work Phone: [facility] Comment on above: Osteopenia, unspecif ied [...] 01-02-2023 End: 01-02-2023 ambulatory Diamond Calvey Other [employer] Other Start: 01-02-2023 Office outpatient vi sit 15 minutes Diamond Calvey [facility] Start: 09-23-2022 End: 09-23-2022 ambulatory Diamond Calvey Other [employer] Other Start: 09-23-2022 Office outpatient vi sit 15 minutes Diamond Calvey [facility] Start: 09-02-2022 End: 09-02-2022 ambulatory Diamond Calvey Other [employer] Other Start: 09-02-2022 Office outpatient vi sit 15 minutes Diamond Calvey [facility] Start: 07-08-2022 End: 07-08-2022 ambulatory Diamond Calvey Other [employer] Other Start: 07-08-2022 Office outpatient vi sit 15 minutes Diamond Calvey [facility] Start: 06-03-2022 Office outpatient vi sit 15 minutes Diamond Case [facility] Start: 06-03-2022 End: 06-03-2022 ambulatory Diamond Case Facility:[facility] Start: 06-03-2022 End: 06-03-2022 ambulatory MD Diamond [...] Start: 05-07-2022 End: 05-08-2022 ambulatory Morris CAGLE Facility:CD:[id number] Start: 05-06-2022 End: 05-06-2022 ambulatory Diamond Case Other [employer] Other Start: 05-06-2022 Office outpatient ne w 30 minutes Diamond Case [facility] Start: 04-08-2022 End: 04-09-2022 ambulatory Morris CAGLE Facility:[facility] Start: 04-08-2022 End: 04-08-2022 Patient encounter procedure Morris CAGLE [facility] [place] Start: 03-16-[address] GABBY DEE . Facili ty:[facility] Start: 02-26-2022 End: 02-26-[address] GABBY DEE . Facility:[facility] Start: 01-01-2022 End: 01-31-[address] GABBY DEE . Facility:[facility] Start: 12-16-2021 Encounter for genera l adult medical examination without abnormal findings DR GABBY DEE . [facility] Start: 12-13-2021 End: 12-14-2021 ambulatory [...] 03-27-2031 Screening for malignant neoplasm of colon [facility] Start: 12-28-2026 Screening for malignant neoplasm of cervix Pap Smear [facility] Start: 05-27-2026 Screening for malignant neoplasm of cervix [facility] Start: 01-03-2025 End: 01-03-2025 Patient encounter procedure 01/03/2025 9:00 AM EDT Office Visit [facility] [address] [place] [address] Dru Donato, DO [address] [place] [address] [facility] Start: 11-17-2024 Screening for malignant neoplasm of breast Mammogram [facility] Start: 12-29-2023 End: 12-28-2024 DXA Skeletal system Views for bone density DEXA bone density Imaging Routine Postmenopausal state Expected: 12/29/2023 (Approximate), Expires: 12/28/[address] [facility] Work Phone: Comment on above: Expected: 12/29/2023 (Approximate), Expires: 12/28/2024 Start: 11-15-2023 Influenza vaccination Influenza Vacc ine (#1) [facility] Start: 1970 Screening for malignant neoplasm of colon [facility] THIN PREP TIS PAP AN D HR HPV DNA THIN PREP TIS PAP AND HR HPV DNA Pathology and Cytology Routine Well woman exam with routine gynecological exam Ordered: 12/29/[address] [facility] Comment on above: Ordered: 12/29/2023 Immunizations Immunization Date Immunization Notes Care Provider Preet shields 12-14-2021 influenza virus vaccine, unspecified formulation Morris CAGLE [facility] 01-18-2021 influenza virus vaccine, unspecified formulation Dru Donato DO Work Phone: [facility] 04-30-2020 SARS-CoV-2 (COVID-19 ) Ad26 vaccine, recombinant Morris NILL [facility] 04-02-2020 SARS-CoV-2 (COVID-19 ) Ad26 vaccine, recombinant Morris NILL [facility] Payers Date Payer Category Payer Self-pay 2022 [facility] BC[employer] [id number] 2022 Unknown [id number] 2019 Unknown [id number] 1970 Unknown [id number] 2.16.840.1.531536.3.579.2. 727 1970 Unknown [id number] 2.16.840.1.371314.3.579.2. 727 1970 Unknown [id number] 2.16.840.1.344393.3.579.2. 593 1970 Unknown [id number] 2.16.840.1.610696.3.579.2. 593 1970 Unknown [id number] 2.16.840.1.435922.3.579.2. 593 1970 Unknown [id number] 2.16.840.1.789439.3.579.2. 593 1970 Unknown [id number] 2.16.840.1.509028.3.579.2. 593 1970 Unknown [id number] 2.16.840.1.101899.3.579.2. 593 1970 Unknown [id number] 2.16.840.1.862832.3.579.2. 593 1970 Unknown [id number] 2.16.840.1.185473.3.579.2. 593 1970 Unknown [id number] 2.16.840.1.997245.3.579.2. 593 1970 Unknown [id number] 2.16.840.1.417295.3.579.2. 593 1970 Unknown [id number] 2.16.840.1.871949.3.579.2. 593 1970 Unknown [id number] 2.16.840.1.690427.3.579.2. 1259 1959 Self-pay [id number] Unknown [id number] 2.16.840.1.354237.3.579.2. 531 Social History Date Type Detail Facility Start: 04-08-2022 End: 12-12-2022 Tobacco smoking status Never smoked tobacco (finding) [facility] Tobacco smoking status Never [facility] Start: 12-23-2022 End: 12-29-2023 Sex Assigned At Female [facility] Start: 1970 Sex Assigned At Female F [facility] Start: 12-23-2022 End: 12-29-2023 Alcoholic beverage intake Current drinker of alcohol (finding) [facility] Start: 12-23-2022 End: 12-29-2023 History of Social function [facility] Start: 12-12-2022 Alcohol Comment Alcohol: 1 or 2 drinks on a typical day/monthly or less Caffeine: 2-3 cups/day [facility] Start: 09-03-2022 Gender identity Identifies as female gender (finding) [facility] Functional Status Date Assessment Result Facility 04-08-2022 Functional Status N/A General Laws [facility] Clinical Notes 12-07-2021 to 02-15-2024 [...] for a telehealth appointment. Patients Phone #: [phone] (mobile) Current Medications: currently has no medications [...] Dru Donato DO documented in this encounter [facility] 12-29-2023 History of Presen t illness Narrative Reason for Appointment: Patient ID: Theresa Reyes is a 53 y.o. female who presents for [facility] Visit Patient presents today for Annual [...] Past Medical History: Diagnosis Date Arthralgia Asthma ([facility]) Headache Hypercholesterolemia ([facility]) Visit for screening mammogram [...] nursing note reviewed. Exam conducted with a director of managed care present. Vitals: Estimated body mass index is [...] Dru Donato DO documented in this encounter [facility] 01-02-2023 Evaluation note Encounter Date Diagnosis Assessment [...] well as cortisone injection and surgical release. [employer] Other 07-11-2023 Evaluation note* Encounter Date Diagnosis [...] Left hand pain (ICD- 10 - M79.642) [employer] Other 06-20-2023 Evaluation note* Encounter Date Diagnosis [...] joint of left hand (ICD-10 - M18.12) [employer] Other 2023 Evaluation note* Encounter Date Diagnosis [...] joint of left hand (ICD-10 - M18.12) [employer] Other 03-21-2023 Evaluation note* Encounter Date Diagnosis [...] and tingle for hours after this injection. [employer] Other 03-04-2023 NotePROCEDURE: XR FOOT RT MIN [...] Electronically authenticated by: AL CAMPOS Date: 2022-05-17 12:06[facility]02-22-2023 NoteOPERATIVE NOTE OPERATION DATE: 05/07/2022 [...] condition. CC: Gabby Dee M.D.[facility] [id number] NoteOPERATIVE NOTE OPERATION DATE: 05/07/2022 ADDENDUM: The distal rectal 4 mm irregular flat polyp was removed with hot snare with good hemostasis, not with cold biopsy forceps.[facility] 05-06-2022 Evaluation note* Encounter Date [...] Apr, Right hand pain (ICD-10 - M79.641) [employer] Other 09-24-2022 NotePROCEDURE: XR SHOULDER LT 2V or > COMPARISON: None. HISTORY: Impingement syndrome of shoulder region FINDINGS: BONES:No fracture, acute abnormality, or significant arthropathy. SOFT TISSUES:Negative. No visible soft tissue swelling. EFFUSION:None visible. OTHER: Negative. IMPRESSION: No acute disease. Electronically authenticated by: AL CAMPOS Date: 2021-12-07 19:36[facility] Plan note No data available for this section [facility] Evaluation noteNo assessment information available [facility] Work Phone: Evaluation note* Diagnosis Postmenopausal state Asymptomatic postmenopausal status (age-related) (natural) Well woman exam with routine gynecological exam Routine gynecological examination documented in this encounter [facility] HealthcareEvaluation note* Diagnosis Osteopenia, unspecified location documented in this encounter [facility] HealthcareHistory general Narrative - Reported* Type Description Date Medical History high cholesterol Surgical History Foot Surgery Surgical History clogged tear duct [employer] Other Hospital Discharge instructions No data available for this section [facility] Progress note No data available for this section [facility] Summary Purpose Family History No Family History [...] Dates Diamond Case MD Attending Provider Active [employer]ove [employer] Relationship Specialty Start Date End Date Gabby Dee MD [address] [place] [address] PCP - General Family Medicine 12/23/22 [employer] Relationship Specialty Start Date End Date Gabby Dee MD [address] [place] [address] PCP - General Family Medicine 12/23/22 [employer]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 Relationship Specialty Start Date End Date Gabby eDe MD [address] [place] [address] PCP - General Family Medicine 12/23/22 [employer]ove [employer]er Relationship Specialty Start Date End Date Gabby Dee MD [address] [place] [address] PCP - General Family Medicine 12/23/22 INFORMATION SOURCE (unrecogn ized section and content) DATE CREATED AUTHOR 05/16/2022 [facility] DATE CREATED AUTHOR AUTHOR'S ORGANIZ ATION 06/18/2022 [facility] DATE CREATED AUTHOR AUTHOR'S ORGANIZ ATION 06/21/2022 [facility] DATE CREATED AUTHOR AUTHOR'S ORGANIZ ATION 12/31/2023 [facility] EPIC REASON FOR [...] ON THE PRIMARY CLINICAL RECORDS. [facility]. provides no warranty or guarantee of the accuracy or completeness of information in this document.
--- OUTSIDE RECORDS SUMMARY | 2024-11-23 07:35 | XMS_ITS | Patient Health Record ---
Author Organization [facility] in [place] Address [address] [place] [address] Care Team Providers Care Aligning Checker Name Role Phone Eliot Dee Primary Care Provider Terra Shepherd Unavailable [phone] Allergies No Known Allergies Results Component Value Reference Range Notes LIPID PROFILE Reviewed date:08/04/2024 08:28:35 PM Interpretation: Performing Lab: Notes/Report: [facility] , Triglycerides 207 <=150 mg/dL Cholesterol 283 <=200 mg/dL HDL Cholesterol 46 40-60 mg/dL > or =60 mg/dl - LOW CARDIOVASCULAR RISK <40 mg/dl - HIGH CARDIOVASCULAR RISK LDL Cholesterol Calculated 196.0 <100 mg/dl OPTIMAL 100-129 mg/dl NEAR OR ABOVE OPTIMAL 130-159 mg/dl BORDERLINE HIGH 160-189 mg/dl HIGH >190 mg/dl VERY HIGH VLDL CHOLESTEROL 41.4 Chol HDL Ratio 6.2 3.3 - 4.4 LOW RISK 4.4 - 7.1 AVERAGE RISK 7.1 - 11.0 MODERATE RISK >11.0 HIGH RISK Performing Lab: see note ML - [facility] PROF 14(COMP METB) Reviewed date:08/04/2024 08:28:35 PM Interpretation: Performing Lab: Notes/Report: [facility] , Sodium 143 136-145 mmol/L Potassium 4.1 3.5-5.1 mmol/L Chloride 104 98-107 mmol/L Carbon Dioxide 29.0 21.0-32.0 mmol/L Anion Gap 14.1 Glucose 121 74-106 mg/dL Blood Urea Nitrogen 17.0 7.0-18.0 mg/dL Creatinine 0.82 0.55-1.02 mg/dL Estimated GFR ( Masha >60 >=60 mL/min/1.73m 2 Estimated GFR (Non- Rebecca >60 >=60 mL/min/1.73m 2 BUN Creatinine Ratio 20.7 Calcium 8.9 8.5-10.1 mg/dL Bilirubin Total 0.6 0.2-1.0 mg/dL Aspartate Amino Transferase 19 15-37 U/L Alanine Aminotransferase 35 14-59 U/L Alkaline Phosphatase 90 46-116 U/L Total Protein 7.1 6.4-8.2 g/dL Albumin Level 3.7 3.4-5.0 g/dL Globulin 3.4 Albumin Globulin Ratio 1.1 Performing Lab: see note ML - [facility] TSH Reviewed date:08/04/2024 08:28:35 PM Interpretation: Performing Lab: Notes/Report: [facility] , Thyroid Stimulating Hormone 1.452 0.358-3.740 uIU/mL Performing Lab: see note ML - [facility] IGP,Aptima HPV,Age Gdln Reviewed date:01/04/2024 08:34:10 PM Interpretation: Performing Lab: Notes/Report: BRUSH-SPATULA CERVIX ENDOCERVIX [facility] , Age Gdln ACOG Testing Note . TESTS RESULT FLAG UNITS REF RANGE LAB Clinician Provided Cytology Information Source.............Ce rvix;Endocervix No. of containers..01 ThinPrep Vial Age Algo ACOG Sheila... 30-65 FLAG LEGEND: L-Low Normal,H-High Normal,LL-Alert Low,HH-Alert High <-Panic Low,>-Panic High,A-Abnormal,AA-Cr itical Abnormal Performed at: 01 =[facility] [place] [address] Sharmaine Hall MD, IGP, Aptima HPV, rfx 16/18,45 Note . TESTS RESULT FLAG UNITS REF RANGE LAB DIAGNOSIS: 02 NEGATIVE FOR INTRAEPITHELIAL LESION OR MALIGNANCY. Specimen adequacy: 02 Satisfactory for evaluation. Endocervical and/or squamous metaplastic cells (endocervical component) are present. Performed by: Mandy Luis, Lineman A Class ([facility]) . 02 Note: Note 02 The Pap [...] L-Low Normal,H-High Normal,LL-Alert Low,HH-Alert High <-Panic Low,>-Panic High,A-Abnormal,AA-Cr itical Abnormal Performed at: [address] [address] Sharmaine Hall MD, HPV Aptima Negative Negative This nucleic acid amplification test detects fourteen high- risk HPV types (16,18,31,33,35,39,45 ,51,52,56,58,59,66,68 ) without differentiation. Performed at: = - [facility] [address] [id number] Embroidery Worker: Sharmaine Hall MD, Phone: [phone] Performed at: - [facility] [id number] Embroidery Worker: Sharmaine Hall MD, Phone: [phone] Performing Lab: see note - [facility] XR cervical spine 2-3V Reviewed date:12/07/2023 02:26:09 PM Interpretation: Performing Lab: Notes/Report: Source Facility: [place] [address] XRay Report Signed Patient: THERESA REYES MR#: [id number] : 1970 Acct:[id number] Age/Sex: 53 / F ADM Date: 12/04/23 Loc: EC Attending Dr: Kraig Shrestha M.D. Ordering Physician: Kraig Shrestha M.D. Date of Service: 12/04/23 Procedure(s): XR cervical spine 2-3V Accession Number(s): [id number] cc: Gabby Dee M.D.; Kraig Shrestha M.D. [place] [address] Patient Name: THERESA REYES MRN: [id number] date: 1970 Sex: F Assigned Patient Location: Current Patient Location: Accession/Order Number: [id number] Exam Date: 12/04/2023 08:40 Report Date: 12/07/2023 12:58 At the request of: KRAIG SHRESTHA Procedure: XR cervical spine 2-3V EXAMINATION: XR cervical spine 2-3V HISTORY: CERVICAL SPINE PAIN COMPARISON: 08/21/2023 FINDINGS: BONES: Normal alignment with no acute fracture or spondylolisthesis. Stable fusion with a plate and screws C3-C6. Moderate spondylosis and facet osteoarthropathy most significant C6-7 DISC SPACES: Moderate narrowing C6-7. Interbody spacers C3-C6 PARASPINOUS: Negative. No paraspinous abnormality is seen. OTHER: Negative. XR/XR cervical spine 2-3V IMPRESSION: Stable cervical fusion with no mechanical failure Electronically authenticated by: AL CAMPOS Date: 12/07/2023 12:58 Dictated By: Al Campos M.D. Signed By: 12/07/23 1301 DD/ 1258 TD/TT: Family Consumer Science Teacher: [place] [address] XRay Report Signed Patient: DAWN REYES MR#: [id number] : 1970 Acct:[id number] Age/Sex: 53 / F ADM Date: 12/04/23 Loc: EC Attending Dr: Kraig Shrestha M.D. Ordering Physician: Kraig Shrestha M.D. Date of Service: 12/04/23 Procedure(s): XR cer vical spine 2-3V Accession Number(s): [id number] cc: Gabby Dee M.D. ; Kraig Shrestha M.D. The [address] [address] Patient Name: THERESA REYES MRN: [id number] date: 1970 Sex: F Assigned Patient Location: Current Patient Location: Accession/Order Numb er: [id number] Exam Date: 12/04/2023 08:40 Report Date: 12/07/2023 12:58 At the request of: KRAIG SHRESTHA Procedure: XR cervic al spine 2-3V EXAMINATION: XR cerv ical spine 2-3V HISTORY: CERVICAL SP INE PAIN COMPARISON: 08/21/2023 FINDINGS: BONES: Normal alignm ent with no acute fracture or spondylolisthesis. Stable fusion with a plate and screws C3-C6. Moderate spondylosis and facet osteoarthropathy mos t significant C6-7 DISC SPACES: Moderat e narrowing C6-7. Interbody spacers C3-C6 PARASPINOUS: Negativ e. No paraspinous abnormality is seen. OTHER: Negative. X R/XR cervical spine 2-3V IMPRESSION: Stable cervical fusi on with no mechanical failure Electronically authenticated by: AL CAMPOS Date: 12/07/2023 12:58 Dictated By: Chong Campos M.D. Signed By: 12/07/23 1301 DD/ 1258 TD/TT: Family Consumer Science Teacher: [email or web address], Flu A+B IH Reviewed date:08/04/2024 08:28:35 PM Interpretation: Performing Lab: Notes/Report: COVID neg FLU A POSITIVE FLU B neg Control present XR Foot RT (3 views) * Reviewed date:03/14/2024 01:19:28 PM Interpretation: Performing Lab: Notes/Report: GLYCOHEMOGLOBIN A1C Reviewed date:08/04/2024 08:28:34 PM Interpretation: Performing Lab: Notes/Report: [facility] , Glycohemoglobin A1C 6.2 4.5-6.2 % ADA RECOMMENDED LIMIT 4.0 - 6.0 ADA THERAPEUTIC TARGET < 7.0 ACTION SUGGESTED > 7.0 Estimated Average Glucose 131 Performing Lab: see note ML - [facility] CBC AUTO DIFF Reviewed date:08/04/2024 08:28:34 PM Interpretation: Performing Lab: Notes/Report: [facility] , White Blood Count 4.2 4.0-11.0 10 3/uL Red Blood Count 5.07 4.20-5.40 10 6/uL Hemoglobin 14.7 12.0-16.0 g/dL Hematocrit 43.9 36.0-48.0 % Mean Corpuscular Volume 86.6 81.0-99.0 fL Mean Corpuscular Hemoglobin 29.0 26.7-34.0 pg Mean Corpuscular HGB Conc 33.5 29.9-35.2 g/dL Red Cell Distribution Width 12.5 11.0-15.0 % Platelet Count 289 150-450 10 3/uL Mean Platelet Volume 10.1 9.5-13.5 fL Neutrophils Percent Auto 50.5 43.0-75.0 % Lymphocytes Percent Auto 34.6 20.5-60.0 % Monocytes Percent Auto 9.4 1.7-12.0 % Eosinophils Percent Auto 4.8 0.9-7.0 % Basophils Percent Auto 0.7 0.2-2.0 % Immature Granulocytes Pct Auto 0.0 0.0-0.5 % Neutrophils Absolute Auto 2.1 1.4-6. 5 10 3/uL Lymphocytes Absolute Auto 1.4 1.2-3. 8 10 3/uL Monocytes Absolute Auto 0.4 0.3-0.8 10 3/uL Eosinophils Absolute Auto 0.2 0.0-0. 7 10 3/uL Basophils Absolute Auto 0.0 0.0-0.1 10 3/uL Immature Granulocytes Abs Auto 0.00 0.00-0.03 10 3/uL Performing Lab: see note ML - [facility] MR ankle RT wo con Reviewed date:08/04/2024 08:28:35 PM Interpretation: Performing Lab: Notes/Report: Source Facility: [place] [address] Magnetic Resonance Report Signed Patient: THERESA REYES MR#: [id number] : 1970 Acct:[id number] Age/Sex: 53 / F ADM Date: 03/02/24 Loc: MRI Attending Dr: Terra Shepherd D.P.M. Ordering Physician: Terra Shepherd D.P.M. Date of Service: 03/02/24 Procedure(s): MR ankle RT wo con Accession Number(s): [id number] cc: Terra Shepherd D.P.M.; Gabby Dee M.D. [place] [address] Patient Name: THERESA REYES MRN: [facility]:[id number] date: 1970 Sex: F Assigned Patient Location: MRI Current Patient Location: MRI Accession/Order Number: [id number] Exam Date: 03/02/2024 07:05 Report Date: 03/04/2024 13:53 At the request of: TERRA SHEPHERD Procedure: MR ankle RT wo con HISTORY: Chronic right heel pain radiating into the arch of the foot. Possible plantar fasciitis. MR ankle RT wo con: 03/02/2024 7:05 AM EST COMPARISON: Radiographs right foot 02/23/2024. TECHNIQUE: Multiplanar, multisequence MRI images of the ankle were obtained without contrast. FINDINGS: A few images are slightly degraded by motion artifact. LIGAMENTS: The anterior talofibular ligament appears within normal limits. The calcaneofibular ligament, posterior talofibular ligament, and distal tibiofibular ligaments appear within normal limits. The deltoid ligament complex appears within normal limits. 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 There is mild tendinopathy of the retromalleolar portion of the peroneus longus tendon. There is a small amount of fluid in the peroneal tendon sheath in the region of the lateral malleolus. The other tendons of the ankle including the Achilles tendon appear within normal limits. SINUS TARSI AND TARSAL TUNNEL: No space-occupying mass is seen in the tarsal tunnel or the sinus tarsi. BONES AND JOINTS: The bone marrow signal intensity is age appropriate. No unstable osteochondral defect of the tibiotalar joint is identified. PLANTAR FASCIA: There is a large plantar calcaneal enthesophyte. There is edema-like signal within this enthesophyte. There is severe thickening and intermediate signal intensity of the central band of the plantar fascia at its attachment to the calcaneus. This is compatible severe plantar fasciitis. Superimposed on this plantar fasciitis is evidence of a moderate grade, longitudinal intrasubstance tear of the deep fibers of the plantar fascia in this region. This tear measures approximately 5 x 8 mm in transverse and AP dimension and involves approximately 50% of the thickness of the plantar fascia. SOFT TISSUES: No significant soft tissue swelling is seen. MR/MR ankle RT wo con IMPRESSION: 1. Severe plantar fasciitis of the proximal central band of the plantar fascia with a superimposed moderate grade longitudinal tear of the deep fibers of the proximal 8 mm of the plantar fascia. There is reactive edema within an adjacent large plantar calcaneal enthesophyte in this region. 2. Mild tendinopathy of the retromalleolar portion of the peroneus longus tendon with a possible mild tenosynovitis in this region. 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 3. No ligament injury or osteochondral defect is seen. Electronically authenticated by: GABBY MICHEL Date: 03/04/2024 13:53 Dictated By: Gabby Michel M.D. Signed By: 05/05/24 123 DD/ 1497 TD/TT: Family Consumer Science Teacher: [place] [address] Magnetic Resonance Report Signed Patient: DAWN REYES MR#: [id number] : 1970 Acct:[id number] Age/Sex: 53 / F ADM Date: 03/02/24 Loc: MRI Attending Dr: Terra Shepherd D.P.M. Ordering Physician: eTrra Shepherd D.P.M. Date of Service: 03/02/24 Procedure(s): ank le RT wo con Accession Number(s): [id number] cc: Terra Shepherd D.P.M.; Gabby Dee M.D. The [place] [address] Patient Name: THERESA REYES MRN: [id number] date: 1970 Sex: F Assigned Patient Location: MRI Current Patient Loca tion: MRI Accession/Order Numb er: [id number] Exam Date: 07:05 Report Date: 03/04/2024 13:53 At the request of: TERRA SHEPHERD Procedure: MR ankle RT wo con HISTORY: Chronic rig ht heel pain radiating into the arch of the foot. Possible plantar fasciitis. MR ankle RT wo con: 03/02/2024 7:05 AM EST COMPARISON: Radiogra phs right foot 02/23/2024. TECHNIQUE: Multiplan ar, multisequence MRI images of the ankle were obtained without contrast. FINDINGS: A few imag es are slightly degraded by motion artifact. LIGAMENTS: The anter ior talofibular ligament appears within normal limits. The calcaneofibular liga ment, posterior talofibular ligament, and distal tibiofibular ligamen ts appear within normal limits. The deltoid ligament complex appears with in normal limits. TENDONS: There appea rs to be a bifid peroneus brevis tendon as best seen on the axial images. There is mild tendinopathy of the retromalleolar portion of the peroneus longus tend on. There is a small amount of fluid in the peroneal tendon sheath in the region of the lateral malleolus. The other tendons of the ankle including the Achill es tendon appear within normal limits. SINUS TARSI AND TARS AL TUNNEL: No space-occupying mass is seen in the tarsal tunnel or the sinus tarsi. BONES AND JOINTS: Th e bone marrow signal intensity is age appropriate. No unstable osteochondr al defect of the tibiotalar joint is identified. PLANTAR FASCIA: Ther e is a large plantar calcaneal enthesophyte. There is edema-like signal wi thin this enthesophyte. There is severe thickening and intermediate signal intensity of the central band of the plantar fascia at its attachment to the calcaneus. This is compatible severe plantar fasciitis. Superimposed on this plantar fasciitis is evidence of a moderate grade, longitudinal intrasubstance tear of the deep fibers of the plantar fascia in this region. This te ar measures approximately 5 x 8 mm in transverse and AP dimension and involv es approximately 50% of the thickness of the plantar fascia. SOFT TISSUES: No significant soft tissue swelling is seen. M R/MR ankle RT wo con IMPRESSION: 1. Severe plantar fasciitis of the proximal central band of the plantar fascia with a superimposed moderate grade longitudinal tear of the deep fibers of the proximal 8 mm of the plantar fascia. There is reactive edema within an adjacent large plantar calcan eal enthesophyte in this region. 2. Mild tendinopathy of the retromalleolar portion of the peroneus longus tendon with a possib le mild tenosynovitis in this region. 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 3. No ligament injur y or osteochondral defect is seen. Electronically authenticated by: GABBY MICHEL Date: 03/04/2024 13:53 Dictated By: Gabby Michel M.D. Signed By: 05/05/24 1235 DD/ 1353 TD/TT: Family Consumer Science Teacher: XR foot RT min 3V Reviewed date:08/04/2024 08:28:35 PM Interpretation: Performing Lab: Notes/Report: Source Facility: [facility]-[address] [place] [address] [place] [address] XRay Report Signed Patient: THERESA REYES MR#: [id number] : 1970 Acct:[id number] Age/Sex: 53 / F ADM Date: 02/23/24 Loc: RAD Attending Dr: Terra Shepherd D.P.M. Ordering Physician: Terra Shepherd D.P.M. Date of Service: 02/23/24 Procedure(s): XR foot RT min 3V Accession Number(s): [id number] cc: Terra Shepherd D.P.M.; Gabby Dee M.D. [place] [address] Patient Name: THERESA REYES MRN: [id number] date: 1970 Sex: F Assigned Patient Location: [facility] Current Patient Location: Accession/Order Number: [id number] Exam Date: 02/23/2024 08:35 Report Date: 02/24/2024 06:52 At the request of: TERRA SHEPHERD Procedure: XR foot RT min 3V PROCEDURE: XR foot RT min 3V HISTORY: Right Foot Pain COMPARISON: XR foot right 05/16/2022 FINDINGS: BONES:Minimal degenerative changes the first metatarsophalangeal joint. Small calcaneal plantar spur. SOFT TISSUES:No visible soft tissue swelling. EFFUSION:None visible. OTHER: Negative. XR/XR foot RT min 3V IMPRESSION: 1. Minimal degenerative changes. 2. No acute or suspicious abnormality. Electronically authenticated by: KAN SALAS Date: 02/24/2024 06:52 Dictated By: Kan Salas M.D. Signed By: 02/24/24 0654 DD/ TD/TT: Family Consumer Science Teacher: [place] [address] XRay Report Signed Patient: DAWN REYES MR#: [id number] : 1970 Acct:[id number] Age/Sex: 53 / F ADM Date: 02/23/24 Loc: RAD Attending Dr: Terra Shepherd D.P.M. Ordering Physician: Terra Shepherd D.P.M. Date of Service: 02/23/24 Procedure(s): XR dragan t RT min 3V Accession Number(s): [id number] cc: Terra Shepherd D.P.M.; Gabby Dee M.D. The [place] [address] Patient Name: THERESA REYES MRN: [id number] date: 1970 Sex: F Assigned Patient Location: RAD Current Patient Location: Accession/Order Numb er: [id number] Exam Date: 08:35 Report Date: 02/24/2024 06:52 At the request of: TERRA SHEPHERD Procedure: XR foot R T min 3V PROCEDURE: XR foot R T min 3V HISTORY: Right Foot Pain COMPARISON: XR foot right 05/16/2022 FINDINGS: BONES:Minimal degenerative changes the first metatarsophalangeal joint. Small calcaneal plantar spur. SOFT TISSUES:No visi ble soft tissue swelling. EFFUSION:None visible. OTHER: Negative. X R/XR foot RT min 3V IMPRESSION: 1. Minimal degenerat wolfgang changes. 2. No acute or suspi cious abnormality. Electronically authenticated by: KAN SALAS Date: 02/24/2024 06:52 Dictated By: Kan Salas M.D. Signed By: 02/24/2454 DD/ TD/TT: Family Consumer Science Teacher: XR DEXA axial skeleton Reviewed date:01/27/2024 07:43:12 PM Interpretation: Performing Lab: Notes/Report: Source Facility: [place] [address] [address] XRay Report Signed Patient: HTERESA REYES MR#: [id number] : 1970 Acct:[id number] Age/Sex: 53 / F ADM Date: 01/25/24 Loc: SHAN[facility] Attending Dr: Dru Donato D.O. Ordering Physician: rDu Donato D.O. Date of Service: 01/25/24 Procedure(s): XR DEXA axial skeleton Accession Number(s): [id number] cc: Dru Donato D.O.; Gabby Dee M.D. [address] [address] Patient Name: THERESA REYES MRN: [id number] date: 1970 Sex: F Assigned Patient Location: [facility] Current Patient Location: Accession/Order Number: [id number] Exam Date: 01/25/2024 10:03 Report Date: 01/27/2024 [...] prevention and treatment of osteoporosis. Osteoporos Int. 2021;3310):0895-6760. doi: 10.1007/e02284-254-55678-p. Epub 2021Jul 11. Erratum in: Osteoporos Int. 2021Oct 10;: PMID: 98675340; PMCID: [id number]. Electronically authenticated by: AL CAMPOS Date: 01/27/2024 14:16 Dictated By: Al Campos M.D. Signed By: 01/27/241417 DD/ 15 TD/TT: Family Consumer Science Teacher: [place] [address] XRay Report Signed Patient: DAWN REYES MR#: [id number] : 1970 Acct:[id number] Age/Sex: 53 / F ADM Date: 01/25/24 Loc: SHANNAN Attending Dr: Dru Donato D.O. Ordering Physician: Dru Donato D.O. Date of Service: 01/25/24 Procedure(s): XR DEX A axial skeleton Accession Number(s): [id number] cc: Dru Donato D.O. ; Gabby Dee M.D. [address] [address] Patient Name: THERESA REYES MRN: [id number] date: 1970 Sex: F Assigned Patient Location: [facility] Current Patient Location: Accession/Order Numb er: [id number] Exam Date: 10:03 Report Date: 01/27/2024 14:16 At the request of: DRU DONATO Procedure: XR DEXA a xial skeleton EXAMINATION: XR DEXA axial skeleton, 01/25/2024 10:03 AM EST HISTORY: POSTMENOPAU LUCIA STATE COMPARISON: None. TECHNIQUE: Dual-ener gy X-ray absorptiometry (DEXA) bone density study performed for the axial skeleton. FINDINGS: Bone mineral density lumbar spine L1-L4 measures 1.242 g/sq cm for T score 0.5. Normal Lowest bone mineral density right femoral neck measures 0.798 g percent meters squared. T score -1. 7. Osteopenia X R/XR DEXA axial skeleton IMPRESSION: Osteopenia. Moderate fracture risk Pharmacologic treatm ent recommendations * No uniform recommendation applies to all patients. Management plans must be individualized. * Consider initiatin g pharmacologic treatment in postmenopausal women and men >= 50 years of age w ho have the following: Primary fracture prevention: * T-score <= - 2.5 a t the femoral neck, total hip, lumbar spine, 33% radius (some uncertainty wi th existing data) by DXA. * Low bone mass (osteopenia: T-score between - 1.0 and - 2.5) at the femoral neck or total hip by DXA with a 10-year hip fracture risk >= 3% or a 10-year major osteoporosis-related fracture risk >= 20% (i.e., clinical vertebral, hip, forearm, or proximal humerus) based on the US-adapted FRAXregistered model. Secondary fracture prevention: * Fracture of the hi p or vertebra regardless of BMD [4, 5]. * Fracture of proxim al humerus, pelvis, or distal forearm in persons with low bone mass (osteopeni a: T-score between - 1.0 and - 2.5). The decision to treat should be individual ized in persons with a fracture of the proximal humerus, pelvis, or distal fo rearm who do not have osteopenia or low BMD [12, 13]. Tami MS, Agnes SL, Smooth KL, Dwayne EM, Eugenie KG, AJ, Christoph ES. The clinician's guid e to prevention and treatment of osteoporosis. Osteoporos Int. 2021;3310):5857-7283. doi: 10.1007/y94968-597-88692- y. Epub 2021Jul 11. Erratum in: Osteoporos Int. 2021Oct 10;: PMID: 53503463; PMCID: [id number]. Electronically authenticated by: AL CAMPOS Date: 01/27/2024 14:16 Dictated By: Chong Campos M.D. Signed By: 01/27/241417 DD/ 15 TD/TT: Family Consumer Science Teacher: Reason For Referral Reason Referral to [facility] Diagnosis 1 Plantar fascial fibr omatosis (M72.2) Referral Organization [facility] ([facility]ODIAT[facility]) Referring Provider First Name Terra Referring Provider Last Name Joao Referring Provider Speciality Podiatry Referred Provider Specialty Pain Medicin e Referral Priority Routine Social History Tobacco Use: Social History Observation Description Date Details (start date - stop date) Never Smoker NA - NA Tobacco Use/Smoking Question Answer Notes Patient is a nonsmoker Alcohol Screen (Audit-C) Question Answer Notes Did you have a drink contain ing alcohol in the past year? Yes How often did you have 6 or more drinks on one occasion in the past year? Never (0 point) How many drinks did you have on a typical day when you were drinking in the past year? 1 or 2 drinks (0 point) How often did you have a dri nk containing alcohol in the past year? Monthly (2 points) Points 2 Interpretation Negative Tobacco Control (Standard) Question Answer Notes Tobacco use: Nonsmoker AUDIT-C (Standard) Question Answer Notes Did you have a drink contain ing alcohol in the past year? Yes How often did you have six o r more drinks on one occasion in the past year? Never (0 point) How many drinks did you have on a typical day when you were drinking in the past year? 1 or 2 drinks (0 point) How often did you have a dri nk containing alcohol in the past year? 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) Active confirmed Problem 29926636 Other cervical disc degeneration, unspecified cervical region (M50.30) Active confirmed Problem 728906243970020 Sciatica, right side (M54.31) Active confirmed Problem 51049216290921622 Plantar fascia l fibromatosis (M72.2) Active confirmed Problem Hyperlipidemia (90830967) Hyperlipidemia (E78.5) Active confirmed Problem Osteopenia (824821135) Osteopenia (M85.80) Active confirmed Problem Statin not tolerated (253765576) Statin intolerance (Z78.9) Active confirmed Problem Well adult (442070071) Well adult (Z00.00) Active confirmed Problem Acute sinusitis (88821416) Acute sinus infection (J01.90) Active confirmed Problem Cervical radiculopathy (89530897) Cervical radicular pain (M54.12) Active confirmed Problem Spasm (30383640) Cramps of lower extremity (R25.2) Active confirmed Problem Low back pain (finding) ([id number]) Low back pain at multiple sites (M54.50) Active confirmed Vital Signs Heart Rate 81 /min 02/23/2024 Temperature 98.0 degrees Fahrenheit 04/11/2024 Blood pressure diastolic 94 mm Hg 11/17/2024 Oximetry 97 % 02/23/2024 Height 67 in 11/17/2024 Blood pressure systolic 152 mm Hg 11/17/2024 Weight 196.2 lbs 11/17/2024 BMI 30.73 kg/m2 11/17/2024 Procedures Procedure Date Ordered Date Performed Result Body Sit e EKG w Interp & Report - performed 11/17/2024 N/ A Holter Monitor - 3 days up to 14 days 11/17/2024 N/A Encounters Encounter Location Date Provider Diagnosis [facility] [address] [place] [address] 06/22/2024 Eliot Dee [facility] [address] [place] [address] 06/30/2024 Eliot Dee Wellness examination Z01.89 [facility] [address] [place] [address] 07/25/2024 Eliot Dee Well adult Z00.00 [facility] [address] [place] [address] 08/04/2024 Eliot Dee Hyperlipidemia E78.5 [facility] [address] [place] [address] 11/17/2024 Eliot Clementsy [facility] [address] [place] [address] 01/27/2024 Eliot Clementsy [facility] [address] [place] [address] 03/11/2024 Eliot Tyreey Fever R50.9 ; Acute bronchitis, unspecified organism J20.9 and Influenza A [address] [place] [address] 04/11/2024 Eliot Clementsy Acute bronchitis, unspecified organism J20.9 [facility] (PODIATRY) [address] [place] [address] [place] [address] 02/23/2024 Terra Shepherd Plantar fascial fibromatosis M72.2 ; Unspecified mononeuropathy of right lower limb G57.91 ; Sciatica, right side M54.31 and Right foot pain M79.[address] [address] 11/17/2024 Eliot Membreno adult Z00.00 an d Palpitation R00.2 Assessments Encounter Date Diagnosis (ICD Code) Assessment Notes Treatment Notes Treatment Clinical Notes Section Notes 02/23/2024 Plantar fascial fibromatosis (ICD-10 - M72.2) Patient seen and evaluated. Patient education provided and all questions answered to her satisfaction. Patient has had history of sciatica which does flareup from time to time. Within the last year she had cervical spine surgery and during that time she was relatively sedentary which cause her sciatica to flareup and eventually led to the right foot pain that she is experiencing now. She has pain both at rest as well as with activity. She has attempted home stretching exercises without help as well as ice, massage and NSAIDs. I ordered an MRI today to determine if she has any local pathology within the foot or is her pain coming from more proximal such as her lumbar spine. I also recommend a referral to pain management which was provided today. She will follow-up after the MRI is obtained 02/23/2024 Unspecified mononeuropathy of right lower limb (ICD-10 - G57.91) 04/11/2024 Acute bronchitis, unspecified organism (ICD-10 - J20.9) Rest and drink more liquids, especially water. You may use a humidifier or vaporizer to help keep the drainage moist. Psat-ehj-lszkhwj Nasal Saline may help the stuffy and runny nose. Use Ibuprofen and or Tylenol as needed for fever, chills, body aches or pain. Children 5 years old should not be given qfaz-fhq-ixhfcbc cough and cold medications such as guaifenesin and dextromethorphan. If you're over age 5, you may try nxoh-nnh-kvxwgal cold medications such as guaifenesin and dextromethorphan, or multi-symptom cold reliever such as Dayquil to help reduce the symptoms. Antibiotics have been prescribed. You should take these until completed and follow the directions. Antibiotics can sometimes cause upset stomach, and in rare cases, serious allergic reactions or serious gastrointestinal problems. If you start having severe abdominal pain, severe vomiting, or bloody diarrhea, you should be reevaluated by your physician or urgent care immediately. Follow up with your Primary Care Provider or return to clinic if symptoms do not improve within 3-5 days. If you develop severe symptoms such as shortness of breath, repeated vomiting, coughing up blood, or chest pain you should go to the emergency room or call 911 11/17/2024 Well adult (ICD-10 - Z00.00) 11/17/2024 Palpitation (ICD-10 - R00.2) 06/30/2024 Wellness examination (ICD-10 - Z01.89) 07/25/2024 Well adult (ICD-10 - Z00.00) 08/04/2024 Hyperlipidemia (ICD-10 - E78.5) 03/11/2024 Fever (ICD-10 - R50.9) 03/11/2024 Acute bronchitis, unspecified organism (ICD-10 - J20.9) Rest and drink more liquids, especially water. You may use a humidifier or vaporizer to help keep the drainage moist. Fgbq-ofu-ikjyqgy Nasal Saline may help the stuffy and runny nose. Use Ibuprofen and or Tylenol as needed for fever, chills, body aches or pain. Children 5 years old should not be given ffxt-ulf-ucwihjg cough and cold medications such as guaifenesin and dextromethorphan. If you're over age 5, you may try ggko-sib-ohetsae cold medications such as guaifenesin and dextromethorphan, or multi-symptom cold reliever such as Dayquil to help reduce the symptoms. Antibiotics have been prescribed. You should take these until completed and follow the directions. Antibiotics can sometimes cause upset stomach, and in rare cases, serious allergic reactions or serious gastrointestinal problems. If you start having severe abdominal pain, severe vomiting, or bloody diarrhea, you should be reevaluated by your physician or urgent care immediately. Follow up with your Primary Care Provider or return to clinic if symptoms do not improve within 3-5 days. If you develop severe symptoms such as shortness of breath, repeated vomiting, coughing up blood, or chest pain you should go to the emergency room or call 911 03/11/2024 Influenza A (ICD9-CM - 487.1) 02/23/2024 Sciatica, right side (ICD-10 - M54.31) 02/23/2024 Right foot pain (ICD-10 - M79.671) Plan Of Treatment Pending Test Test Name Order Date CMP (COMPLETE METABOLIC PANEL) 3 HEMOGLOBIN A1C (GLYCO) 11/06/2022 LIPID PANEL (CHOL/TRIG/HDL/LDL) 11/07/19 23 CBC WITH DIFF 11/06/2022 MRI Ankle RT w/o contrast ([facility] Foot) MRI Cervical Spine w/o contrast * 2022 EKG w Interp & Report - performed 2024 MAMM Screen Bilateral 11/06/2022 CBC W/AUTO DIFF 04/29/2023 CBC AUTO DIFF 07/25/2024 GLYCOHEMOGLOBIN A1C 07/25/2024 LIPID PROFILE 07/25/2024 LIVER PROFILE 10/13/2023 LIVER PROFILE 08/04/2024 MAGNESIUM 11/17/2024 PROF 14(COMP METB) 07/25/2024 TSH 07/25/2024 TSH 11/06/2022 THYROID PANEL (T4/TSH/FREE T3) 5 Holter Monitor - 3 days up to 14 days Lipid Panel 10/13/2023 Lipid Panel 08/04/2024 Insurance Providers Payer Name Payer Address Payer Phone Subscriber Number Group Number Insured Name Patient Relationship to Insured Coverage Start Date Coverage End Date [employer] PPO PLUS LOCAL PLAN [address] [place] [address] [phone] [id number] WandyDawn hillerie Self - patient is the insured 3 Medications Administered Medication Instructions Date of Administration Dosage Notes Kenalog-40 09/21/2023 120 mg 120 Kenalog-40 09/22/2023 120 mg Ketorolac Tromethamine 09/21/2023 60 mg 60 Ketorolac Tromethamine 09/22/2023 60 mg Ketorolac Tromethamine 09/23/2023 60 mg Orphenadrine Citrate 09/21/2023 60 mg 60 Orphenadrine Citrate 09/22/2023 60 mg Orphenadrine Citrate 09/23/2023 60 mg Medical (General) History Medical History History ICD Code Anxiety F41.9 Arthralgia M25.50 COVID-19 U07.1 Low back pain at multiple sites M54.50 Lumbosacral radiculitis M54.17 Hypercholesteremia E78.00 Sciatic pain, right M54.31 arthritis undefined high cholesterol Surgical History Surgery Date(Month/Year) cervical spine c3-c7 sx 05/20/23 Ganglion Cyst Removal- Rt Foot C3-C7 surgery 06/06 cyst removal/ plantar fasciitis sx 2004
--- OUTSIDE RECORDS SUMMARY | 2024-11-23 07:35 | XMS_ITS | Encounter Summary ---
Author Organization [facility] Address [address] [place] [address] Care Team Providers Care Telecommunicator Supervisor Name Role Phone Rod Dee MD Primary Care Provider [phone] Encounter Details Date Type Department Care Team (Late Contact Info) Description 01/27/2024 Abstract [facility] [address] [facility] [place] [address] Willem Donato DO [address], [place] [address] Social History Tobacco Use Types Packs/Day Years [...] Description 01/03/2025 9:00 AM EDT Office Visit [facility] [address] [place] [address] Willem Donato DO [address], [facility] documented as of this encounter Visit Diagnoses Not on filedocumented in this encounter Care Teams Telecommunicator Supervisor Relationship Specialty Start Date End Date Rod Dee MD PCP - General Family Medicine 12/23/22 documented as of this encounter
--- OUTSIDE RECORDS SUMMARY | 2024-11-23 07:35 | XMS_ITS | Clinical Summary ---
Author Organization [facility] Address [address] [place] [address] Care Team Providers Care High Pressure Operator Name Role Phone Rod Dee MD Primary Care Provider [phone] Allergies No known active allergies Medications No known medications Active Problems Problem Noted Date Diagnosed Date Osteopenia 02/15/2024 Family History Medical History Relation Name Comments Diabetes Maternal Grandmother Hypertension Maternal Grandmother Ovarian cancer Maternal Grandmother Heart disease Paternal Grandfather Diabetes Paternal Grandmother Heart disease Paternal Grandmother Hypertension Paternal Grandmother Relation Name Status Comments Father Alive Maternal Grandfather Maternal Grandmother Mother Alive Paternal Grandfather Paternal Grandmother Social History Tobacco Use Types Packs/Day Years Used Date Smoking Tobacco: Never Tobacco Cessation:Counseling Given: Not Answered Alcohol Use Standard Drinks/Week Comments Yes 0 [...] AM EDT Sexual Orientation Not on file Last Filed Vital Signs Vital Sign Reading Time Taken Comments Blood Pressure 134/82 12/29/2023 3:39 PM EDT Pulse - - Temperature - - Respiratory Rate - - Oxygen Saturation - - Inhaled Oxygen Concentration - - Weight 87.5 kg (193 lb) 12/29/2023 3:39 PM EDT Height 170.2 cm (5' 7 ) 12/29/2023 3:39 PM EDT Body Mass Index 30.23 12/29/2023 3:39 PM EDT Plan of Treatment Upcoming Encounters Date Type Department Care Team (Late st Contact Info) Description 01/03/2025 9:00 AM EDT Office Visit [facility] [address] [place] [address] Willem Donato, [address] [facility] [place] [address] Health Maintenance Due Date Last Done Comments CT Colonography 1970 FIT-DNA 1970 FIT 1970 FOBT 1970 Sigmoidoscopy 1970 Influenza Vaccine (#1) 2024 12/24/2023, 2020, 01/04/2020 Mammogram 11/17/2024 11/18/2023 Cervical Cancer Screening 05/27/2026 HPV/Cotest 05/27/2026 Pap Smear 12/28/2026 12/29/2023, 05/27/2021 Colonoscopy 03/27/2031 03/27/2021 Colorectal Cancer Screening 03/27/2031 Procedures Procedure Name Priority Date/Time Associated Diagnosis Comments PAP SMEAR Routine 12/29/2023 12:00 AM EDT MM TOMOSYNTHESIS SCREENING BI 11/18/2023 2:12 PM EDT from Last 3 Months or Most Recently Relevant to Health Maintenance Results * Pap Smear (12/29/2023 12:00 AM EDT) Swab Cervical swab / Unknown us [facility] CYTOLOGY ORDERABLES Final Result EXTERNAL LAB * MM TOMOSYNTHESIS SCREENING BI (11/18/2023 2:12 PM EDT) Anatomical Region Laterality Modality Other 11/18/2023 2:12 PM EDT Narrative 11/18/2023 2:13 PM EDT [address] [place] [id number] Mammography Report Signed Patient: THERESA JOSHUA MR#: [id number] : 1970 Acct:[id number] Age/Sex: 53 / F ADM Date: 11/13/23 Loc: MAMMO Attending Dr: Willem Donato D.O. Ordering Physician: Willem Donato D.O. Results: Date of Service: 11/13/23 Follow Up: Procedure(s): MM tomosynthesis screening BI Accession Number(s): [id number] cc: Willem Donato D.O.; Rod Dee M.D. Patient Name: THERESA JOSHUA MR#: [id number] : 1970 Exam Date: 11/13/2023 Ordering Doctor: [...] ovarian cancer at age 80. LOCATION: The [facility] BREAST COMPOSITION: There are scattered areas of [...] Salas M.D. Signed By: 11/18/23 1413 DD/ 11 TD/TT: Equine Pharmacology Technician: Procedure Note Radiology, Radiologist, MD - 11/18/2023 [place] [address] Mammography Report Signed Patient: THERESA JOSHUA R#: [id number] : 1970Acct:[id number] Age/Sex: 53 / FADM Date: 11/13/23 Loc: MAMMO Attending Dr: Willem Donato D.O. Ordering Physician: Willem Donato D.O.Results: Date of Service: 11/13/23Follow Up: Procedure(s): MM tomosynthesis screening BI Accession Number(s): [id number] cc: Willem Donato D.O.; Rod Dee M.D. Patient Name: THERESA JOSHUA MR#: [id number] : 1970 Exam Date: 11/13/2023 Ordering Doctor: DR Willem Donato . RADIOLOGY REPORT PROCEDURE: MM TOMOSYNTHESIS SCREENING BI COMPARISON: MM TOMOSYNTHESIS SCREENING BI, 11/10/2022. MG MAMM [id number] HIEU CAD, 10/28/2021. MG MAMM SCREEN 3D [...] ovarian cancer at age 80. LOCATION: The [facility] BREAST COMPOSITION: There are scattered areas of [...] Kan Salas M.D. Signed By:11/18/23 1413 DD/ 141 TD/TT: Equine Pharmacology Technician: Willem Kinga DO [facility] Final Result from Last 3 Months or Most Recently Relevant to Health Maintenance Insurance * Guarantor: Theresa Joshua Account Type Relation to Patient Date of Phone Billing Address Personal/Family Self 1970 [phone] (Work) [address] [place], [place] [address] BCBS Care Teams High Pressure Operator Relationship Specialty Start Date End Date Rod Dee MD PCP - General Family Medicine 12/23/22
== END 2024-11-23 07:33 | disposition home or self-care (01) ==
LOC: CARD 07:32
PROVIDERS: PCP Family Medicine; Visit Provider Family Medicine
DX: Z00.00 Encounter for general adult medical examination without abnormal findings (principal); R00.2 Palpitations
CPT/HCPCS: 93246

== ENCOUNTER 2024-11-28 07:52 | Outpatient (OUT) | payer BC, SELFPAY ==
--- OUTSIDE RECORDS SUMMARY | 2023-08-21 04:30 | XMS_ITS ---
Author Organization [facility] Address [address] [place] [address] Care Team Providers Care Test Tube Maker Name Role Phone TyreeRod hannah Primary Care Provider Roberto doe Reese Busch Unavailable [phone] Kayla Randle Unavailable Allergies No Known Allergies REASON FOR VISIT Cervical postop recheck Medications Medication SIG (Take, Route, Fr equency, Duration) Notes Start Date End Date Status Flexeril 10 mg 1 tab(s) orally 3 times a day 07/02 Active Flexeril 10 mg 1 tab(s) orally 3 times a day 06/10 Active Flexeril 10 mg 1 tab(s) orally 3 times a day 08/20 Active Flexeril 10 mg 1 tab(s) orally 3 ti mes a day prn muscle spasms 05/15/2023 Active gabapentin Active Indocin Active simvastatin Active desvenlafaxine Activ e Robaxin Active Social History Tobacco Use: Social History Observation Description Date Details (start date - stop date) Never Smoker NA - NA Smoking History Question Answer Notes Smoking Status NonSmoker Problems Problem Type SNOMED Code ICD Code Onset Dates Problem Status W/U Status Risk Notes Problem [id number] Intractable headache, unspecified chronicity pattern, unspecified headache type (R51.9) Active confirmed Encounters Encounter Location Date Provider Diagnosis [facility] [address] [place] [address] [address] [place] [address] [facility] musculoskeletal system Z47.89 ; Intractable headache, unspecified chronicity pattern, unspecified headache type R51.9 and Arthrodesis status Z98.1 Assessments Encounter Date Diagnosis (ICD Code) Assessment Notes Treatment Notes Treatment Clinical Notes Section Notes 08/21/2023 Aftercare following surgery of the musculoskeletal system (ICD-10 - Z47.89) 1. 3 months s/p C3-6 ACDF 08/21/2023 Intractable headache, unspecified chronicity pattern, unspecified headache type (ICD-10 - R51.9) 1. 3 months s/p C3-6 ACDF 08/21/2023 Arthrodesis status (ICD-10 - Z98.1) 1. 3 months s/p C3-6 ACDF 08/21/2023 Other Plan established by Dr. Shrestha. The patient has some muscle spasms in her paraspinal cervical musculature that are bothering her postop. We discussed some gentle massage techniques that she can do and I have refilled her Flexeril 10 mg that she will try to only take at night if needed. We will see her back in 3 months with an x-ray. The patient is very much in agreement with the treatment and/or diagnostic plan set forth and all questions were answered to the patient's satisfaction. Thanks once again. If we can be of further service to your patients with disorders of the spine, cervical, thoracic, or lumbar, please do not hesitate to contact Dr. Shrestha. Best regards, 1. 3 months s/p C3-6 ACDF Plan Of Treatment Medication Medication Name Sig Start Date Stop Date Notes Flexeril 10 mg 1 tab(s) orally 3 times a day 08/21/2023 Treatment Notes Assessment Notes Other Plan established by Dr. Shrestha. The patient has some muscle spasms in her paraspinal cervical musculature that are bothering her postop. We discussed some gentle massage techniques that she can do and I have refilled her Flexeril 10 mg that she will try to only take at night if needed. We will see her back in 3 months with an x-ray. The patient is very much in agreement with the treatment and/or diagnostic plan set forth and all questions were answered to the patient's satisfaction. Thanks once again. If we can be of further service to your patients with disorders of the spine, cervical, thoracic, or lumbar, please do not hesitate to contact Dr. Shrestha. Best regards, Pending Test Test Name Order Date Cervical spine 2 v - [id number] 08/21/2023 Next Appt Details Follow Up: 3 Months, Reason: Progress Notes * IDA JOSHUAEDOB:[birth year] (54 yo F)Acc No.[id number]:08/21/2023 Patient: THERESA DARNELL Provider: SANAZ Ward :1970 A ge:53 Y S ex:Female Date:08/21/2023 Address:[address] [place] [address], [id number] Pcp:Rod Dee Subjective: * Chief Complaints: * 1 . Cervical postop recheck. * HPI: G eneral Follow Up Information: Dictated by Kayla Gonzalez PA-C Patient returns 6 weeks after her last office visit for her 3-month postop recheck for her C3-6 ACDF done on 05/20/2023. Patient states that she is still having headaches that are causing her not to sleep well. Patient has been taking the Flexeril as needed at night to help her sleep, but these are starting not to work as well. She locates the pain in her neck paraspinally at the base of her skull. She states that her radicular symptoms are resolved to her left upper extremity. Patient states that she is also starting to notice that her low back is hurting more. She had previously gone to the pain management clinic in [place] and gotten an injection that has lasted her approximately 4 years until now. She was getting radicular symptoms going down her right leg prior to this injection that resolved with this issue. 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 * Surgical History: C yst in foot , C3-6 ACDF 05/2023. * Family History: M other: Arthritis,Rheumatoid Arthritis,Thyroid Disease (hyperthyroidism or hypothyroidism).?Siblings: Thyroid Disease (hyperthyroidism or hypothyroidism). * Social History: S moking History S moking Status N onSmoker. C onsume alcohol D o you drink alcohol? Y es, H ow many drinks per day 0 -1, F or how many years? > 5 years.?Exercise regularly D o you exercise? Y es, H ow many times per week? 1 time, How long do you exercise? 3 0 min. D o you live W ith whom do you live? S pouse and other(s). W hat is your place of residence? W here do you live? P rivate home. 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 M arital status M arital Status M arried. * Medications: T aking Robaxin , Taking simvastatin , Taking desvenlafaxine , Taking Indocin , Taking gabapentin , Taking Flexeril 10 mg tablet 1 tab(s) orally 3 times a day prn muscle spasms , Taking Flexeril 10 mg tablet 1 tab(s) orally 3 times a day , Taking Flexeril 10 mg tablet 1 tab(s) orally 3 times a day , Medication List reviewed and reconciled with the patient * Allergies: N .K.D.A. Objective: * Vitals: * Examination: G eneral examination: O n examination, the patient is well-developed, well-nourished, well-groomed, alert and oriented x3, normal mood. Patient walks with steady gait. Limited cervical ROM. Cervical paraspinal tenderness bilaterally at the base of the skull, nontender over the cervical spine midline. 5/5 muscle strength bilateral upper extremities. Sensory intact upper extremities. X -ray Imaging Studies: 2 V X-rays done of cervical spine and office today and reviewed interpreted by myself showing, plate, and screws from C3-6. No complications seen with the hardware. No signs of instability or fractures. . M RI Imaging Studies: Assessment: * Assessment: 1. A ftercare following surgery of the musculoskeletal system - Z47.89 (Primary) ?2. I ntractable headache, unspecified chronicity pattern, unspecified headache type - R51.9? 3. A rthrodesis status - Z98.1 1. 3 months s/p C3-6 ACDF. Plan: * Treatment: 2. O thers Notes: Plan established by Dr. Shrestha. The patient has some muscle spasms in her paraspinal cervical musculature that are bothering her postop. We discussed some gentle massage techniques that she can do and I have refilled her Flexeril 10 mg that she will try to only take at night if needed. We will see her back in 3 months with an x-ray. The patient is very much in agreement with the treatment and/or diagnostic plan set forth and all questions were answered to the patient's satisfaction. Thanks once again. If we can be of further service to your patients with disorders of the spine, cervical, thoracic, or lumbar, please do not hesitate to contact Dr. Shrestha. Best regards, * Follow Up: 3 Months Forms: * Images: * Electronic signature of Boris Randle PA-C on 11/28/2024 at 08:00 AM EDT Sign off status: Pending * Provider: SANAZ Ward Date: 0 08/21/2023 Generated for Teri dee/Arturo/Adriel on: 0 11/28/2024 08:00 AM EDT History and Physical Notes * HPI (History of Present Illness) Category Sub-Category Detail Notes Category Not es General Follow Up Information Dictated by Kayla Gonzalez PA-C Patient returns 6 weeks after her last office visit for her 3-month postop recheck for her C3-6 ACDF done on 05/20/2023. Patient states that she is still having headaches that are causing her not to sleep well. Patient has been taking the Flexeril as needed at night to help her sleep, but these are starting not to work as well. She locates the pain in her neck paraspinally at the base of her skull. She states that her radicular symptoms are resolved to her left upper extremity. Patient states that she is also starting to notice that her low back is hurting more. She had previously gone to the pain management clinic in [place] and gotten an injection that has lasted her approximately 4 years until now. She was getting radicular symptoms going down her right leg prior to this injection that resolved with this issue. Examination Category Sub-Category Detail Notes Category Not es General examination On exami nation, the patient is well-developed, well-nourished, well-groomed, alert and oriented x3, normal mood. Patient walks with steady gait. Limited cervical ROM. Cervical paraspinal tenderness bilaterally at the base of the skull, nontender over the cervical spine midline. 5/5 muscle strength bilateral upper extremities. Sensory intact upper extremities. X-ray Imaging Studies 2V X-rays done of cervical spine and office today and reviewed interpreted by myself showing, plate, and screws from C3-6. No complications seen with the hardware. No signs of instability or fractures. MRI Imaging Studies
--- OUTSIDE RECORDS SUMMARY | 2024-11-17 09:00 | XMS_ITS ---
Author Organization [facility] in [place] Address [address] [place] [address] Care Team Providers Care Customer Support Agent Name Role Phone Eliot Dee Primary Care Provider Allergies No Known Allergies REASON FOR VISIT [...] N/A Encounters Encounter Location Date Provider Diagnosis [facility] [address] [place] [address] 11/17/2024 Eliot Dee Well adult Z00.00 an [...] Notes * Jayde JOSHUADOB:1970 (54 yo F)Acc No.[id number]:11/17/2024 Progress Note Patient: Jayde DARNELL Provider: Taty Dee ([facility])MD :1970 A ge:54 Y S ex:Female Date:11/17/2024 Address:[address] [place], [place] [id number] Check In:01:01 PM ESTCheck O ut:01:55 PM [...] EKG, WINTERP. * Preventive Medicine: Screenings/Counseling: B [place] ACTION PLAN Above Normal BMI Follow-up D ietary management education, guidance, and counseling * * Sign off status: Completed Visit Status: C HK (Check Out) true * Provider: Taty Dee ([facility])MD Date: 11/17/2024 Generated for Printi ng/Faxing/eTransmitting on: 0 11/28/2024 07:59 AM EDT History and Physical Notes * [...]
--- OUTSIDE RECORDS SUMMARY | 2024-11-28 08:00 | XMS_ITS | Patient Health Record ---
Author Organization [facility] Address [address] [place] [address] Care Team Providers Care National Sales Trainer Name Role Phone Rod Dee Primary Care Provider Unavailbrook Reese Heath Unavailable [phone] Kayla Randle Unavailable [phone] Reason For Referral No Information Medications Medication [...] Problem Status W/U Status Risk Notes Problem 17386790 Intractable headache, unspecified chronicity pattern, unspecified headache type (R51.9) Active confirmed Problem 761273224 Body mass index [BMI] 30.0-30.9, adult (Z68.30) Active confirmed Problem 274530511 Obesity, unspecified (E66.9) Active confirmed Problem 512031694 Arthrodesis status (Z98.1) Active confirmed Problem 662722302 Encounter for other orthopedic aftercare (Z47.89) Active confirmed Problem 75475908 Other cervical disc degeneration, high cervical region (M50.31) Active confirmed Problem 58864211 Other cervical disc degeneration at C6-C7 level (M50.323) Active confirmed Problem 93744134 Other cervical disc degeneration at C5-C6 level (M50.322) Active confirmed Problem 17733221 Other cervical disc degeneration at C4-C5 level (M50.321) Active confirmed Problem 69904901 Radiculopathy, cervical region (M54.12) Active confirmed Problem Muscle spasm (10979459) Muscle spasm (M62.838) Active confirmed Problem 71654499 Cervical spinal stenosis (M48.02) Active confirmed Vital Signs Height 5 ft 7 in in 06/03/2024 Weight 195 lbs 06/03/2024 BMI 30.54 06/03/2024 Encounters Encounter Location Date Provider Diagnosis [address] [address] 12/04/2023 [facility] Aftercare following surgery of the musculoskeletal system Z47.89 ; Intractable headache, unspecified chronicity pattern, unspecified headache type R51.9 ; Muscle spasm M62.838 and Arthrodesis status Z98.[address] [place] [address] 06/03/2024 [facility] Arthrodesis status Z98.1 and Encounter for other [...] Test Name Order Date Cervical spine,ap,lat,flex,ext - 18522 0 03/31/2023 Cervical spine,ap,lat,flex,ext - 32733 0 06/03/2024 Cervical spine 2 v - 58180 07/03/2023 Cervical spine 2 v - 95707 12/04/2023 Cervical spine 2 v - 72525 08/21/2023 [place] Cervical Collar OTS 05/15/2023 Future Test Test Name Order Date Chest 2 views - 90943 04/15/2023 CBC 04/15/2023 PT/PTT 04/15/2023 BMP 04/15/2023 MRSA (Bilateral Nares) PCR 04/15/2023 EKG 04/15/2023 Type and Cross Blood 2 units 04/15/2023 Insurance Providers Payer Name Payer Address Payer Phone Subscriber Number Group Number Insured Name Patient Relationship to Insured Coverage Start Date Coverage End Date Kamaljit [address] [place] [address] [id number] THERESA JOSHUA Self - patient is the insured Medical (General) History Medical History History ICD Code Have you been seen by a dentist in the l ast year?: Yes Latex Allergy: Yes Asthma Healthcare worker: Yes Surgical History Surgery Date(Month/Year) C3-6 ACDF 05/2023 Cyst in foot
--- OUTSIDE RECORDS SUMMARY | 2024-11-28 08:00 | XMS_ITS | Clinical Summary ---
Author Organization [facility] Address [address] [place] [address] Care Team Providers Care Registered Radiation Therapist Name Role Phone Rod Dee MD Primary Care Provider [phone] Allergies No known active allergies Medications No [...] EDT Office Visit [facility] [address] [place] [address] Willem Donato, [address] [facility] [place] [address] Health Maintenance Due Date Last Done Comments [...] EDT Narrative 11/18/2023 2:13 PM EDT [place] [id number] Mammography Report Signed Patient: THERESA JOSHUA MR#: [id number] : 1970 Acct:[id number] Age/Sex: 53 / F ADM Date: 11/13/23 Loc: MAMMO Attending Dr: Willem Donato D.O. Ordering Physician: Willem Donato D.O. Results: Date of Service: 11/13/23 Follow Up: Procedure(s): MM tomosynthesis screening BI Accession Number(s): [id number] cc: Willem Donato D.O.; Rod Dee M.D. Patient Name: THERESA JOSHUA MR#: [id number] : 1970 Exam Date: 11/13/2023 Ordering Doctor: [...] ovarian cancer at age 80. LOCATION: The [facility] BREAST COMPOSITION: There are scattered areas of [...] Signed By: 11/18/23 1413 DD/ 11 TD/TT: L D Rn: Procedure Note Radiology, Radiologist, MD - 11/18/2023 [place] [address] Mammography Report Signed Patient: THERESA JOSHUA R#: [id number] : 1970Acct:[id number] Age/Sex: 53 / FADM Date: 11/13/23 Loc: MAMMO Attending Dr: Willem Donato D.O. Ordering Physician: Willem Donato D.O.Results: Date of Service: 11/13/23Follow Up: Procedure(s): MM tomosynthesis screening BI Accession Number(s): [id number] cc: Willem Donato D.O.; Rod Dee M.D. Patient Name: THERESA JOSHUA MR#: [id number] : 1970 Exam Date: 11/13/2023 Ordering Doctor: DR Willem Donato . RADIOLOGY REPORT PROCEDURE: MM TOMOSYNTHESIS SCREENING BI COMPARISON: MM TOMOSYNTHESIS SCREENING BI, 11/10/2022. MG MAMM [id number] HIEU CAD, 10/28/2021. MG MAMM SCREEN 3D [...] ovarian cancer at age 80. LOCATION: The [facility] BREAST COMPOSITION: There are scattered areas of [...] M.D. Signed By:11/18/23 1413 DD/ 141 TD/TT: L D Rn: Willem Kinga DO [facility] Final Result from Last 3 Months or Most Recently Relevant to Health Maintenance Insurance * Guarantor: Theresa Joshua Account Type Relation to Patient Date of Phone Billing Address Personal/Family Self 1970 [phone] (Work) [address] [place], [place] [address] [employer] Care Teams Registered Radiation Therapist Relationship Specialty Start Date End Date Rod Dee MD PCP - General Family Medicine 12/23/22
--- OUTSIDE RECORDS SUMMARY | 2024-11-28 08:00 | XMS_ITS | Patient Health Record ---
Author Organization [facility] in [place] Address [address] [place] [address] Care Team Providers Care Tour Counselor Name Role Phone Eliot Dee Primary Care Provider Terra Shepherd [phone] Allergies No Known Allergies Results Component Value Reference Range Notes MR ankle RT wo con Reviewed date:08/04/2024 08:28:35 PM Interpretation: Performing Lab: Notes/Report: Source Facility: [place] [address] Magnetic Resonance Report Signed Patient: THERESA REYES MR#: [id number] : 1970 Acct:[id number] Age/Sex: 53 / F ADM Date: 03/02/24 Loc: MRI Attending Dr: Terra Shepherd D.P.M. Ordering Physician: Terra Shepherd D.P.M. Date of Service: 03/02/24 Procedure(s): MR ankle RT wo con Accession Number(s): [id number] cc: Terra Shepherd D.P.M.; Gabby Dee M.D. [place] [address] Patient Name: THERESA REYES MRN: [id number] date: 1970 Sex: F Assigned Patient Location: MRI Current Patient Location: MRI Accession/Order Number: [id number] Exam Date: 03/02/2024 07:05 Report Date: 03/04/2024 [...] Signed By: 05/05/24 1235 DD/ 1353 TD/TT: Manufacturing Intern: GLYCOHEMOGLOBIN A1C Reviewed date:08/04/2024 08:28:34 PM Interpretation: Performing Lab: Notes/Report: [facility] , Glycohemoglobin A1C 6.2 4.5-6.2 % ADA RECOMMENDED LIMIT 4.0 - 6.0 ADA THERAPEUTIC TARGET < 7.0 ACTION SUGGESTED > 7.0 Estimated Average Glucose 131 Performing Lab: see note ML - [facility] LB XR foot RT min 3V Reviewed date:08/04/2024 08:28:35 PM Interpretation: Performing Lab: Notes/Report: Source Facility: [place] [address] [place] [address] XRay Report Signed Patient: THERESA REYES MR#: [id number] : 1970 Acct:[id number] Age/Sex: 53 / F ADM Date: 02/23/24 Loc: RAD Attending Dr: Terra Shepherd D.P.M. Ordering Physician: Terra Shepherd D.P.M. Date of Service: 02/23/24 Procedure(s): XR foot RT min 3V Accession Number(s): [id number] cc: Terra Shepherd D.P.M.; Gabby Dee M.D. [place] [address] Patient Name: THERESA REYES MRN: [id number] date: 1970 Sex: F Assigned Patient Location: RAD Current Patient Location: Accession/Order Number: [id number] Exam Date: 02/23/2024 08:35 Report Date: 02/24/2024 [...] Kan Salas M.D. Signed By: 02/24/2454 DD/ 1 TD/TT: Manufacturing Intern: XR DEXA axial skeleton Reviewed date:01/27/2024 07:43:12 PM Interpretation: Performing Lab: Notes/Report: Source Facility: [place] [address] XRay Report Signed Patient: THERESA REYES MR#: [id number] : 1970 Acct:[id number] Age/Sex: 53 / F ADM Date: 01/25/24 Loc: RAD Attending Dr: Dru Donato D.O. Ordering Physician: Dru Donato D.O. Date of Service: 01/25/24 Procedure(s): XR DEXA axial skeleton Accession Number(s): [id number] cc: Dru Donato D.O.; Gabby Dee M.D. [place] [address] Patient Name: THERESA REYES MRN: [id number] date: 1970 Sex: F Assigned Patient Location: [facility] Current Patient Location: Accession/Order Number: [id number] Exam Date: 01/25/2024 10:03 Report Date: 01/27/2024 [...] prevention and treatment of osteoporosis. Osteoporos Int. 2021;33(10):7841-7115. doi: 10.1007/z80418-589-72746-q. Epub 2021Jul 11. Erratum in: Osteoporos Int. 2021Oct 10;: PMID: [id number]; PMCID: [id number]. Electronically authenticated by: AL CAMPOS Date: 01/27/2024 14:16 Dictated By: Al Campos M.D. Signed By: 01/27/241417 DD/ 15 TD/TT: Manufacturing Intern: RICHARD,lAysaima HPV,Age Gdln Reviewed date:01/04/2024 08:34:10 PM Interpretation: Performing Lab: Notes/Report: BRUSH-SPATULA CERVIX ENDOCERVIX [facility] , Age Gdln ACOG Testing Note . TESTS RESULT FLAG UNITS REF RANGE LAB -------- Clinician Provided Cytology Information Source.............Cervix; Endocervix No. of containers..01 ThinPrep Vial Age Algo ACOG Sheila... 3065 01 -------- FLAG LEGEND: L-Low Normal,H-High Normal,LL-Alert Low,HH-Alert High <-Panic Low,>-Panic High,A-Abnormal,AA-Critica l Abnormal -------- Performed at: 01 =G [facility] [address] [place] [address] Sharmaine Hall MD, RICHARD, Aptima HPV, rfx 16/18,45 Note . TESTS RESULT FLAG UNITS REF RANGE LAB -------- DIAGNOSIS: 02 NEGATIVE FOR INTRAEPITHELIAL LESION OR MALIGNANCY. Specimen adequacy: 02 Satisfactory for evaluation. Endocervical and/or squamous metaplastic cells (endocervical component) are present. Performed by: Mandy Luis, Steam Pipe Fitter ([facility]) . 02 Note: Note 02 [...] Criteria not met, HPV Genotype not performed. -------- FLAG LEGEND: L-Low Normal,H-High Normal,LL-Alert Low,HH-Alert High <-Panic Low,>-Panic High,A-Abnormal,AA-Critica l Abnormal -------- Performed at: [address] [address] Sharmaine Hall MD, HPV Aptima Negative Negative This nucleic acid amplification test detects fourteen high- risk HPV types (16,18,31,33,35,39,45,51,5 2,56,58,59,66,68) without differentiation. Performed at: =[address] [id number] Fire Management Officer: Sharmaine Hall MD, Phone: [phone] Performed at: [address] [id number] Fire Management Officer: Sharmaine Hall MD, Phone: [phone] Performing Lab: see note LC - [facility] LB XR cervical spine 2-3V Reviewed date:12/07/2023 02:26:09 PM Interpretation: Performing Lab: Notes/Report: Source Facility: [place] [address] [place] [address] XRay Report Signed Patient: THERESA REYES MR#: [id number] : 1970 Acct:[id number] Age/Sex: 53 / F ADM Date: 12/04/23 Loc: EC Attending Dr: Kraig Shrestha M.D. Ordering Physician: Kraig Shrestha M.D. Date of Service: 12/04/23 Procedure(s): XR cervical spine 2-3V Accession Number(s): [id number] cc: Gabby Dee M.D.; Kraig Shrestha M.D. [place] [address] Patient Name: THERESA REYES MRN: [id number] date: 1970 Sex: F Assigned Patient Location: Current Patient Location: Accession/Order Number: [id number] Exam Date: 12/04/2023 08:40 Report Date: 12/07/2023 [...] Campos M.D. Signed By: 12/07/23 1301 DD/ 125 TD/TT: Manufacturing Intern: [email or web address], Flu A+B IH Reviewed date:08/04/2024 08:28:35 PM Interpretation: Performing Lab: Notes/Report: COVID neg FLU A POSITIVE FLU B neg Control present XR Foot RT (3 views) * Reviewed date:03/14/2024 01:19:28 PM Interpretation: Performing Lab: Notes/Report: TSH Reviewed date:08/04/2024 08:28:35 PM Interpretation: Performing Lab: Notes/Report: [facility] , Thyroid Stimulating Hormone 1.452 0.358-3.740 u IU/mL Performing Lab: see note - [facility] LB PROF 14(COMP METB) Reviewed date:08/04/2024 08:28:35 PM Interpretation: Performing Lab: Notes/Report: [facility] , Sodium 143 136-145 mmol/L Potassium 4.1 3.5-5.1 mmol/L Chloride 104 98-107 mmol/L Carbon Dioxide 29.0 21.0-32.0 mmol/L Anion Gap 14.1 Glucose 121 74-106 mg/dL Blood Urea Nitrogen 17.0 7.0-18.0 mg/dL Creatinine 0.82 0.55-1.02 mg/dL Estimated GFR ( Masha >60 >=60 mL/mi n/1.73m 2 Estimated GFR (Non- Rebecca >60 >=60 mL/mi n/1.73m 2 BUN Creatinine Ratio 20.7 Calcium 8.9 8.5-10.1 mg/dL Bilirubin Total 0.6 0.2-1.0 mg/dL Aspartate Amino Transferase 19 15-37 U/L Alanine Aminotransferase 35 14-59 U/L Alkaline Phosphatase 90 46-116 U/L Total Protein 7.1 6.4-8.2 g/dL Albumin Level 3.7 3.4-5.0 g/dL Globulin 3.4 Albumin Globulin Ratio 1.1 Performing Lab: see note ML - [facility] LB LIPID PROFILE Reviewed date:08/04/2024 08:28:35 PM Interpretation: Performing Lab: Notes/Report: [facility] , Triglycerides 207 <=150 mg/dL Cholesterol [...] Performing Lab: see note ML - [facility] LB CBC AUTO DIFF Reviewed date:08/04/2024 08:28:34 PM Interpretation: Performing Lab: Notes/Report: [facility] , White Blood Count 4.2 4.0-11.0 10 [...] 0.0 0.0-0.5 % Neutrophils Absolute Auto 2.1 1.4-6.5 10 3/uL Lymphocytes Absolute Auto 1.4 1.2-3.8 10 3/uL Monocytes Absolute Auto 0.4 0.3-0.8 10 3/uL Eosinophils Absolute Auto 0.2 0.0-0.7 10 3/uL Basophils Absolute Auto 0.0 0.0-0.1 10 3/uL Immature Granulocytes Abs Auto 0.00 0.00-0.03 10 3/uL Performing Lab: see note ML - 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) Active confirmed Problem Degeneration of cervical intervertebral disc (65657641) Other cervical disc degeneration, unspecified cervical region (M50.30) Active confirmed Problem Right side sciatica (110239718362750) Sciatica, right side (M54.31) Active confirmed Problem Plantar fascial fibromatosis (24879744) Plantar fascial fibromatosis (M72.2) Active confirmed Problem Hyperlipidemia (95340417) Hyperlipidemia (E78.5) Active confirmed Problem Osteopenia (532687090) Osteopenia (M85.80) Active confirmed Problem Statin not tolerated (561196804) Statin intolerance (Z78.9) Active confirmed Problem Well adult (299716284) Well adult (Z00.00) Active confirmed Problem Acute sinusitis (43619690) Acute sinus infection (J01.90) Active confirmed Problem Cervical radiculopathy (58579554) Cervical radicular pain (M54.12) Active confirmed Problem Spasm (68765802) Cramps of lower extremity (R25.2) Active confirmed Problem Low back pain (finding) (504295898) Low back pain at multiple sites (M54.50) [...] Encounters Encounter Location Date Provider Diagnosis [facility] [address] [place] [address] 06/22/[address] [facility] [address] [place] [address] 06/30/2024 Eliot Dee Wellness examination Z01.89 [facility] [address] [place] [address] 07/25/2024 Eliot Dee Well adult Z00.00 [facility] [address] [place] [address] 08/04/2024 Eliot Clementsy Hyperlipidemia E78.5 [facility] [address] [place] [address] 11/17/[address] [facility] [address] [place] [address] 01/27/[address] [facility] [address] [place] [address] 03/11/2024 Eliot Hoy Fever R50.9 ; Acute bronchitis, unspecified organism J20.9 and Influenza A 487.1 [facility] [address] [facility] [place] [address] 04/11/2024 Eliot Hoy Acute bronchitis, unspecified organism J20.9 [facility] (PODI[facility]) [address] [place] [address] [place] [address] 02/23/2024 Terra Shepherd Plantar fascial fibromatosis M72.2 ; Unspecified mononeuropathy of right lower limb G57.91 ; Sciatica, right side M54.31 and Right foot pain M79.671 [facility] [address] [place] [address] 11/17/2024 Eliot Clementsy Well adult Z00.00 an d Palpitation R00.2 [...] vaporizer to help keep the drainage moist. Euih-cqy-vbqzgml Nasal Saline may help the stuffy and runny nose. Use Ibuprofen and or Tylenol as needed for fever, chills, body aches or pain. Children 5 years old should not be given lnqb-ote-aleross cough and cold medications such as guaifenesin and dextromethorphan. If you're over age 5, you may try plcj-twl-lkgxmyr cold medications such as guaifenesin and dextromethorphan, [...] vaporizer to help keep the drainage moist. Covn-zib-yljoryj Nasal Saline may help the stuffy and runny nose. Use Ibuprofen and or Tylenol as needed for fever, chills, body aches or pain. Children 5 years old should not be given zrta-dbo-ssklwqg cough and cold medications such as guaifenesin and dextromethorphan. If you're over age 5, you may try odgh-csc-qtmgiqf cold medications such as guaifenesin and dextromethorphan, [...] A1C 07/25/2024 LIPID PROFILE 07/25/2024 LIVER PROFILE 08/04/2024 LIVER PROFILE 10/13/2023 MAGNESIUM 11/17/2024 PROF 14(COMP METB) 07/25/2024 TSH 11/06/2022 TSH 07/25/2024 THYROID PANEL (T4/TSH/FREE T3) 5 Holter Monitor - 3 days up to 14 days Lipid Panel 08/04/2024 Lipid Panel 10/13/2023 Insurance Providers Payer Name Payer Address Payer Phone Subscriber Number Group Number Insured Name Patient Relationship to Insured Coverage Start Date Coverage End Date [employer] PPO PLUS LOCAL PLAN [address] [place] [address] [id number] Theresa Reyes Self - patient is the insured 3 [...]
--- OUTSIDE RECORDS SUMMARY | 2024-11-28 08:00 | XMS_ITS | Encounter Summary ---
Author Organization [facility] Address [address] [place] [address] Care Team Providers Care Real Time Analyst Name Role Phone Rod Dee MD Primary Care Provider [phone] Encounter Details Date Type Department Care Team (Late Contact Info) Description 02/08/2024 Orders Only [facility] [place] [place] [address] Miley Anguiano LPN [address] [facility] [place] [address] Social History Tobacco Use Types Packs/Day Years [...] 9:00 AM EDT Office Visit [facility] [address] [address] [place] [address] Willem Donato DO [address] [place] [address] documented as of this encounter [...] on filedocumented in this encounter Care Teams Real Time Analyst Relationship Specialty Start Date End Date Rod Dee MD PCP - General Family Medicine 12/23/22 documented as of this encounter
--- OUTSIDE RECORDS SUMMARY | 2024-11-28 08:00 | XMS_ITS | Encounter Summary ---
Author Organization [facility] Address [address] [place] [address] Care Team Providers Care Radiology Supervisor Name Role Phone Rod Dee MD Primary Care Provider [phone] Encounter Details Date Type Department Care Team (Late Contact Info) Description 01/27/2024 Abstract [facility] [address] [facility] [place] [address] Willem Donato DO [address], [place] [address] Social History Tobacco Use Types Packs/Day Years [...] Office Visit [facility]ER MILLER [address] [place] [address] Willem Donato DO [address], [facility]11 documented as of this encounter Visit Diagnoses Not on filedocumented in this encounter Care Teams Radiology Supervisor Relationship Specialty Start Date End Date Rod Dee MD PCP - General Family Medicine 12/23/22 documented as of this encounter
--- OUTSIDE RECORDS SUMMARY | 2024-11-28 08:00 | XMS_ITS | Encounter Summary ---
Author Organization [facility] Address [address] [place] [address] Care Team Providers Care Unit Controller Name Role Phone Rod Dee MD Primary Care Provider [phone] Encounter Details Date Type Department Care Team (Late Contact Info) Description 11/18/2023 Clinisync Result Encounter [facility] External Department Unsolicited Willem Donato DO [address], [facility] Social History Tobacco Use Types Packs/Day Years [...] Office Visit [facility] MILLER [address] [place] [id number] Willem Donato DO [address] [place] [address] documented as of this encounter Procedures Procedure Name Priority Date/Time Associated Diagnosis Comments MM TOMOSYNTHESIS SCREENING BI 11/18/2023 2:12 PM EDT documented in this encounter Results * MM TOMOSYNTHESIS SCREENING BI (11/18/2023 2:12 PM EDT) Anatomical Region Laterality Modality Other 11/18/2023 2:12 PM EDT Narrative 11/18/2023 2:13 [place] [address] Mammography Report Signed Patient: THERESA JOSHUA MR#: [id number] : 1970 Acct:[id number] Age/Sex: 53 / F ADM Date: 11/13/23 Loc: MAMMO Attending Dr: Willem Donato D.O. Ordering Physician: Willem Donato D.O. Results: Date of Service: 11/13/23 Follow Up: Procedure(s): MM tomosynthesis screening BI Accession Number(s): [id number] cc: Willem Donato D.O.; Rod Dee M.D. Patient Name: THERESA JOSHUA MR#: [id number] : 1970 Exam Date: 11/13/2023 Ordering Doctor: [...] ovarian cancer at age 80. LOCATION: [facility] BREAST COMPOSITION: There are scattered areas of [...] Signed By: 11/18/23 1413 DD/ 1412 TD/TT: Procurement Inspector: Procedure Note Radiology, Radiologist, MD - 11/18/2023 [place] [address] Mammography Report Signed Patient: THERESA JOSHUA R#: [id number] : 1970Acct:[id number] Age/Sex: 53 / FADM Date: 11/13/23 Loc: MAMMO Attending Dr: Willem Donato D.O. Ordering Physician: Willem Donato D.O.Results: Date of Service: 11/13/23Follow Up: Procedure(s): MM tomosynthesis screening BI Accession Number(s): [id number] cc: Willem Donato D.O.; Rod Dee M.D. Patient Name: THERESA JOSHUA MR#: [id number] : 1970 Exam Date: 11/13/2023 Ordering Doctor: DR Willem Donato . RADIOLOGY REPORT PROCEDURE: MM TOMOSYNTHESIS SCREENING BI COMPARISON: MM TOMOSYNTHESIS SCREENING BI, 11/10/2022. MG MAMM [id number] HIEU CAD, 10/28/2021. MG MAMM SCREEN 3D [...] ovarian cancer at age 80. LOCATION: [facility] BREAST COMPOSITION: There are scattered areas of [...] M.D. Signed By:11/18/23 1413 DD/ 1412 TD/TT: Procurement Inspector: Willem Donato DO [facility] Final Result documented in this encounter Visit Diagnoses Not on filedocumented in this encounter Care Teams Unit Controller Relationship Specialty Start Date End Date Rod Dee MD PCP - General Family Medicine 12/23/22 documented as of this encounter
--- OUTSIDE RECORDS SUMMARY | 2024-11-28 08:00 | XMS_ITS | Encounter Summary ---
Author Organization [facility] Address [address] [place] [address] Care Team Providers Care Pile Operator Name Role Phone Rod Dee MD Primary Care Provider [phone] Encounter Details Date Type Department Care Team (Late Contact Info) Description 01/27/2024 Clinisync Result Encounter [facility] External Department Unsolicited Dru Donato DO [address], [facility]11 Social History Tobacco Use Types Packs/Day [...] Office Visit [facility] [address] [place] [phone] Dru Donato DO [address] [place] [address] documented as of this encounter Procedures Procedure Name Priority Date/Time Associated Diagnosis Comments XR DEXA AXIAL SKELETON 01/27/2024 2:16 PM EST documented in this encounter Results * XR DEXA AXIAL SKELETON (01/27/2024 2:16 PM EST) Anatomical Region Laterality Modality Other 01/27/2024 2:16 PM EST Narrative 01/27/2024 2:18 [place] [address] XRay Report Signed Patient: THERESA JOSHUA MR#: [id number] : 1970 Acct:[id number] Age/Sex: 53 / F ADM Date: 01/25/24 Loc: [facility] Attending Dr: Dru Donato D.O. Ordering Physician: Dru Donato D.O. Date of Service: 01/25/24 Procedure(s): XR DEXA axial skeleton Accession Number(s): [id number] cc: Dru Donato D.O.; Rod Dee M.D. [place] [id number] Patient Name: THERESA JOSHUA MRN: TBH:[id number] date: 1970 Sex: F Assigned Patient Location: [facility] Current Patient Location: Accession/Order Number: [id number] Exam Date: 01/25/2024 10:03 Report Date: 01/27/2024 [...] prevention and treatment of osteoporosis. Osteoporos Int. 2021;33(10):1919-4524. doi: 10.1007/n22523-089-76858-e. Epub 2021Jul 11. Erratum in: Osteoporos Int. 2021Oct 10;: PMID: [id number]; PMCID: [id number]. Electronically authenticated by: AL CAMPOS Date: 01/27/2024 14:16 Dictated By: Al Campos M.D. Signed By: 01/27/24 1418 DD/ 15 TD/TT: Day Haul Youth Supervisor: Procedure Note Radiology, Radiologist, - 01/27/2024 [place] [address] XRay Report Signed Patient: GAURAVHERNAN BRASHERERIE JMR#: [id number] : 1970Acct:[id number] Age/Sex: 53 / FADM Date: 01/25/24 Loc: [facility] Attending Dr: Dru Donato D.O. Ordering Physician: Dru Donato D.O. Date of Service: 01/25/24 Procedure(s): XR DEXA axial skeleton Accession Number(s): [id number] cc: Dru Donato D.O.; Rod Dee M.D. [place] [id number] Patient Name: THERESA JOSHUA MRN: [facility]:[id number] date: 1970 Sex: F Assigned Patient Location: [facility] Current Patient Location: Accession/Order Number: [id number] Exam Date: 01/25/2024 10:03 Report Date: 01/27/2024 [...] 10-year hip fracture risk >= 3% or g76-hqrp major osteoporosis-related fracture risk >= 20% (i.e., [...] to prevention and treatment of osteoporosis.Osteoporos Int. 2021;33(10):5075-0331. doi: 10.1007/q35977-209-84227-v. Ep. Erratum in: Osteoporos Int. 2021Oct 10;: PMID: [id number]; PMCID: [id number]. Electronically authenticated by: AL CAMPOS Date: 01/27/2024 14:16 Dictated By: Al Campos M.D. Signed By:01/27/24 1418 DD/ 141 TD/TT: [employer] Youth Supervisor: [facility] Final Result documented in this encounter Visit Diagnoses Not on filedocumented in this encounter Care Teams Pile Operator Relationship Specialty Start Date End Date Rod Dee MD PCP - General Family Medicine 12/23/22 documented as of this encounter
--- OUTSIDE RECORDS SUMMARY | 2024-11-28 08:06 | XMS_ITS | CCD ---
Author Organization [facility] Care Team Providers Care Counter Helper Name Role Phone Gabby Dee Primary Care Physician [phone] Morris CAGLE Attending Unavailable Morris CAGLE Attending Unavailable Diamond Case Unavailable MD Diamond Case Attending Provider [phone] Diamond Case Admitting Unavailable Diamond Case Attending [...] Unavailable HOY ., DR PIERRE Admitting Unavailable ROSCOE, DR AL Shaikh Consulting Unavailable HOY ., [...] Unavailable HOY ., DR PIERRE Consulting Unavailable ROSCOE, DR AL Shaikh Consulting Unavailable HOY ., DR PIERRE Admitting Unavailable HOY ., DR PIERRE Attending Unavailable HOY ., DR PIERRE Primary Care Unavailable Gabby Dee MD Primary Care Provider [phone] DRU DONATO Attending Unavailable Allergies Allergy Classification Reported Allergen(s) Allergy Type Date of Onset Reaction(s) Facility (1 source) No Known Medication Allergies; Translations: [No Known Medication Allergies] Propensity to adverse reactions (disorder) [facility] Repository (2 sources) Baclofen Drug Allergy [facility] Repository Medications Current Medications Medication Drug [...] GDLNon AGE GDLN ACOG TESTING Note . [facility] Comment on above: TESTS RESULT FLAG UN ITS REF RANGE LAB Clinician Provided Cytology Information Source.............Cervix;Endocervix No. of containers..01 ThinPrep Vial Age Algo ACOG Sheila... 30-65 01 FLAG LEGEND: L-Low Normal,H-High Normal,LL-Alert Low,HH-Alert High <-Panic Low,>-Panic High,A-Abnormal,AA-Critical Abnormal Performed at: 01 =G [address] [place] [address] Sharmaine Hall MD, HPV APTIMA Negative Negative [facility] e Comment on above: This nucleic acid am plification test detects fourteen high- risk HPV types (16,18,31,33,35,39,45,51,52,56,58,59,66,68) without differentiation. Performed at: =G - [facility] [id number] Prescription Benefit Specialist: Sharmaine Hall MD, Phone: [phone] Performed at: - [facility] [id number] Prescription Benefit Specialist: Sharmaine Hall MD, Phone: [phone] IGP, APTIMA HPV, RFX 16/18,45 Note . [facility] Comment on above: TESTS RESULT FLAG U NITS REF RANGE LAB DIAGNOSIS: 02 NEGATIVE FOR INTRAEPITHELIAL LESION OR MALIGNANCY. Specimen adequacy: 02 Satisfactory for evaluation. Endocervical and/or squamous metaplastic cells (endocervical component) are present. Performed by: Mandy Luis, Pipe Coverer (ASCP) . 02 Note: Note 02 The [...] <-Panic Low,>-Panic High,A-Abnormal,AA-Critical Abnormal Performed at: [address] [address] Sharmaine Hall MD, BRUSH-SPATULA CERVIX ENDOCERVIX [facility] XR hand LT min 3V*on 023 XR hand LT min 3V* [address] [address] XRay Report Signed Patient: Theresa Reyes MR#: [id number] : 1970 Acct:[id number] Age/Sex: 52 / F ADM Date: 06/03/22 Loc: [facility] Room: Type: [facility] Attending Dr: Diamond Case MD Copies [...] Miguel Ramey M.D.06/03/2022 1:11 PM Dictation Location: [place] [address] Transcribed By: [facility] 06/03/22 1311 Dictated By: Miguel Ramey II, MD 06/03/22 1310 Signed By: 06/03/22 131 [facility] XR hand LT min 3V* [facility] Other XR hand LT min 3V* [facility] Other XR hand LT min 3V* [address] [facility] Other XR hand LT min 3V* YULIANA Doshi [address] [facility] Other XR hand LT min 3V* XRay Report [facility] Other XR hand LT min 3V* Signed [facility] Other XR hand LT min 3V* Patient: Theresa Reyes MR#: [id number] [facility] Other XR hand LT min 3V* 60123 [facility] Other XR hand LT min 3V* : 1970 Acct:[id number] [facility] Other XR hand LT min 3V* Age/Sex: 52 / F ADM Date: 06/03/22 [facility] Other XR hand LT min 3V* Loc: [facility] Room: Type : REG CLI [facility] Other XR hand LT min 3V* Attending Dr: Benny Case MD [facility] Other XR hand LT min 3V* Copies to: Diamond Case MD [facility] Other XR hand LT min 3V* Ordering Provider: Diamond Case MD [facility] Other XR hand LT min 3V* Date of Service: 06/03/22 [facility] Other XR hand LT min 3V* XR/XR hand LT min 3V*: PAIN [facility] Other XR hand LT min 3V* XR hand LT min 3V* 06/03/2022 8:44 AM [facility] Other XR hand LT min 3V* SIGNS AND SYMPTOMS: Left thumb/first metacarpal pain [facility] Other XR hand LT min 3V* PROTOCOL: Frontal, lateral, and oblique radiographs of the left hand: [facility] Other XR hand LT min 3V* COMPARISON: None [facility] Other XR hand LT min 3V* FINDINGS: [facility] Other XR hand LT min 3V* The bones are in anatomic alignment. There is mild degenerative change at the first carpometacarpal [facility] Other XR hand LT min 3V* junction. There is preservation of the joint spaces, otherwise. There is no fracture or dislocation. [facility] Other XR hand LT min 3V* No significant soft tissue swelling. [facility] Other XR hand LT min 3V* XR/XR hand LT min 3V* [facility] Other XR hand LT min 3V* IMPRESSION: [facility] Other XR hand LT min 3V* No acute bony injury. [facility] Other XR hand LT min 3V* Mild degenerative fa cet noted at the base of the thumb. [facility] Other XR hand LT min 3V* Impression dictated by: Miguel Ramey M.D.06/03/2022 1:11 PM [place] [facility] Other XR hand LT min 3V* Dictation Location: [place] [address] [facility] Other XR hand LT min 3V* Transcribed By: KARRIE 06/03/22 [facility] Other XR hand LT min 3V* Dictated By: Miguel Ramey II, MD 06/03/[address] [place] [address] [facility] Other XR hand LT min 3V* Signed By: [facility] Other XR hand LT min 3V* 06/03/[address] [place] [address] [facility] Other Reminderson 05-15-2022 Reminders - From: Jessica Mims LPN To: N - Clinical; Sent: 05/15/2022 07:57:39 EST Show up: 04/06/2025 07:00:00 EST Subject: colonoscopy recall Due Date/Time: 05/07/2025 07:00:00 EST Reminder/Recall Patient is due for colonoscopy 05/07/2025 due to history of tubulovillous adenoma. Normal [facility] Pathology Noteon 05-09-2022 Pathology Note [id number]#1.00CD :127 Normal [facility] Outside Colonoscopyon 2022 Outside Colonoscopy [id number]#1.00C D:127 Normal [facility] PREG HCG QUALon 05-07-2022 , QUAL Negative Normal NEGATIVE [facility] Comment on above: Performed By: #### P REG #### [facility] [address] [place] [address] Dr. Hu Can Pre-Certification Formon Pre-Certification Form [id number]#1.00 CD:127 Normal [facility] Consent for Procedure/Surger yon 04-10-2022 Consent for Procedure/Surgery [id number]#1.00C D:127 Normal [facility] Facesheeton 04-10-2022 Facesheet [id number]#1.00C D:127 Normal [facility] General Surgery Office/Clini c Noteon 04-08-2022 [...] Ad26 vaccine 04/02/2020 Recorded Normal [facility] Comment on above: Result Comment: Elec tronically Signed By: JEFF PONCE, Morris R\.br\Date and Time Signed: 04/08/22 15:33 EST Covid-19 PCR (CVDTBH)on 02-13 SARS-CoV-2 (COVID-19) RNA CLARISSA+probe Ql (Unsp spec) Not detected Normal NOT DETECTED [facility] Comment on above: Result Comment: When [...] for this test is supported by the Supervisor Microbiology Technologists of Health and Human Service's declaration that [...] used). Performed By: #### C VDTBH #### [facility] [address] [place] [address] Dr. Hu Can INFLUENZA A AND B AGon 02-26 [facility] SEE BELOW Normal [facility] Comment on above: Result Comment: Nega tive for Flu A protein angiten. Infection due to Flu A cannot be ruled out. Flu A angiten in the sample may be below the detection limit of the test. Performed By: #### I NFLUAB #### [facility] [address] [place] [address] Dr. Hu [facility] SEE BELOW Normal [facility] Comment on above: Result Comment: Nega tive for Flu B protein antigen. Infection due to Flu B cannot be ruled out. Flu B antigen in the sample may be below the detection limit of the test. Performed By: #### I NFLUAB #### [facility] [address] [place] [address] Dr. Hu Can INFLUENZA A AG Negative Normal NEGATIVE SEE COMMENT [facility] Comment on above: Performed By: #### I NFLUAB #### [facility] [address] [place] [address] Dr. uH Can INFLUENZA B AG Negative Normal NEGATIVE SEE COMMENT [facility] Comment on above: Performed By: #### I NFLUAB #### [facility] [address] [place] [address] Dr. Hu Can INTERNAL CONTROLS Within Normal Limits Normal Wi thin Normal Limits [facility] Comment on above: Performed By: #### I NFLUAB #### [facility] [address] [place] [address] Dr. Hu Can CBC AUTO DIFFon 12-13-2021 BASO # 0.0 103/ul Normal 0.0-0.1 [facility] Comment on above: Performed By: #### C BC #### [facility] [address] [place] [address] Dr. Hu Can Basophils/100 WBC (Bld) 0.3 % Normal 0.2-2.0 [facility] Comment on above: Performed By: #### C BC #### [facility] [address] [place] [address] Dr. Hu Can EO # 0.1 103/ul Normal 0.0-0.7 [facility] Comment on above: Performed By: #### C BC #### [facility] [address] [place] [address] Dr. Hu Can Eosinophils/100 WBC (Bld) 1.1 % Normal 0.9-7.0 [facility] Comment on above: Performed By: #### C BC #### [facility] [address] [place] [address] Dr. Hu Can Erythrocyte distribution width (RBC) [Ratio] 13.7 % Normal 11.0-15.0 [facility] Comment on above: Performed By: #### C BC #### [facility] [address] [place] [address] Dr. Hu Can Hematocrit (Bld) [Volume fraction] 44.6 % Normal 36.0-48.0 [facility] Comment on above: Performed By: #### C BC #### [facility] [address] [place] [address] Dr. Hu Can Hemoglobin (Bld) [Mass/Vol] 14.5 g/dL Normal 12.0-16.0 [facility] Comment on above: Performed By: #### C BC #### [facility] [address] [place] [address] Dr. Hu Can IG # 0.02 10e3/ul Normal 0.00-0.03 [facility] Comment on above: Performed By: #### C BC #### [facility] [address] [place] [address] Dr. Hu Can IG % 0.3 % Normal 0.0-0.5 [facility] Comment on above: Performed By: #### C BC #### [facility] [address] [place] [address] Dr. Hu Can LYMPH # 2.3 103/ul Normal 1.2-3.8 [facility] Comment on above: Performed By: #### C BC #### [facility] [address] [place] [address] Dr. Hu Can Lymphocytes/100 WBC (Bld) 30.5 % Normal 20.5-60.0 [facility] Comment on above: Performed By: #### C BC #### [facility] [address] [place] [address] Dr. Hu Can MANUAL DIFF REQ NO Normal [facility] Comment on above: Performed By: #### C BC #### [facility] [address] [place] [address] Dr. Hu Can MCH (RBC) [Entitic mass] 29.1 pg Normal 26.7-34.0 [facility] Comment on above: Performed By: #### C BC #### [facility] [address] [place] [address] Dr. Hu Can MCHC (RBC) [Mass/Vol] 32.5 g/dL Normal 29.9-35.2 [facility] Comment on above: Performed By: #### C BC #### [facility] [address] [place] [id number] [address] Hu Can MCV (RBC) [Entitic vol] 89.6 fL Normal 81.0-99.0 [facility] Comment on above: Performed By: #### C BC #### [facility] [address] [place] [address] [address] Hu Can MONO # 0.5 103/ul Normal 0.3-0.8 [facility] Comment on above: Performed By: #### C BC #### [facility] [address] [place] [address] Dr. Hu Can Monocytes/100 WBC (Bld) 6.8 % Normal 1.7-12.0 [facility] Comment on above: Performed By: #### C BC #### [facility] [address] [place] [address] Dr. Hu Can NEUT # 4.6 103/ul Normal 1.4-6.5 [facility] Comment on above: Performed By: #### C BC #### [facility] [address] [place] [address] Dr. Hu Can Neutrophils/100 WBC (Bld) 61.0 % Normal 43.0-75.0 [facility] Comment on above: Performed By: #### C BC #### [facility] [address] [place] [address] Dr. Hu Can Platelet mean volume (Bld) [Entitic vol] 9.3 fL Critically low 9.5-13.5 [facility] Comment on above: Performed By: #### C BC #### [facility] [address] [place] [address] Dr. uH Can PLT 296 103/ul Normal 150-450 [facility] Comment on above: Performed By: #### C BC #### [facility] [address] [place] [address] Dr. Hu Can RBC 4.98 106/ul Normal 4.20-5.40 [facility] Comment on above: Performed By: #### C BC #### [facility] [address] [place] [address] Dr. Hu Can WBC 7.5 103/ul Normal 4.0-11.0 [facility] Comment on above: Performed By: #### C BC #### [facility] [address] [place] [address] [address] Hu Can GLYCOHEMOGLOBIN A1Con 2021 ADA RECOMMENDATION SEE BELOW Normal [facility] Comment on above: Result Comment: ADA RECOMMENDED LIMIT 4.0 - 6.0 ADA THERAPEUTIC TARGET < 7.0 ACTION SUGGESTED > 7.0 Performed By: #### A 1C #### [facility] [address] [place] [address] [address] Hu Can Glucose [Mass/Vol] 114 mg/dL Normal [facility] Comment on above: Performed By: #### A 1C #### [facility] [address] [place] [address] [address] Hu Can HbA1c (Bld) [Mass fraction] 5.6 % Normal 4.5-6.2 [facility] Comment on above: Performed By: #### A 1C #### [facility] [address] [place] [address] [address] Hu Can LIPID PROFILEon 12-13-2021 CHOL-HDL RATIO NORM SEE BELOW Normal [facility] Comment on above: Result Comment: 3.3 - 4.4 LOW RISK 4.4 - 7.1 AVERAGE RISK 7.1 - 11.0 MODERATE RISK >11.0 HIGH RISK Performed By: #### T SH, CMP, LIPID ####[facility] [address] [place] [address]Dr. Hu Can Cholesterol [Mass/Vol] 279 mg/dL Critically high <=200 [facility] Comment on above: Performed By: #### T SH, CMP, LIPID ####[facility] [address] [place] [id number]. Hu Can Cholesterol in HDL [Mass/Vol] 50 mg/dL Normal 40-60 [facility] Comment on above: Performed By: #### T SH, CMP, LIPID ####[facility] [address] [place] [address]Dr. Hu Can Cholesterol in LDL [Mass/Vol] 197.8 mg/dL Normal [facility] Comment on above: Performed By: #### T SH, CMP, LIPID ####[facility] [address] [place] [address]Dr. Hu Can Cholesterol.total/ Cholesterol in HDL [Mass ratio] 5.6 {ratio} Normal [facility] Comment on above: Performed By: #### T SH, CMP, LIPID ####[facility] [address] [place] [address]Dr. Hu Can HDL NORMAL > or = 60 mg/dl - LO W CARDIOVASCULAR RISK <40 mg/dl - HIGH CARDIOVASCULAR RISK Normal [facility] Comment on above: Performed By: #### T SH, CMP, LIPID ####[facility] [address] [place] [address]Dr. Hu Can LDL CALC NORMAL SEE BELOW Normal [facility] Comment on above: Result Comment: <100 mg/dl OPTIMAL 100 - 129 mg/dl NEAR OR ABOVE OPTIMAL 130 - 159 mg/dl BORDERLINE HIGH 160 - 189 mg/dl HIGH >190 mg/dl VERY HIGH Performed By: #### T SH, CMP, LIPID ####[facility] [address] [place] [address]Dr. Hu Can Triglyceride [Mass/Vol] 156 mg/dL Critically high <=150 [facility] Comment on above: Performed By: #### T SH, CMP, LIPID ####[facility] [address] [place] [address]Dr. Hu Can VLDL CALC 31.2 mg/dL Normal [facility] Comment on above: Performed By: #### T SH, CMP, LIPID ####[facility] [address] [place] [address]Dr. Hu Can PROF 14(COMP METB)on 022 Albumin [Mass/Vol] 3.8 g/dL Normal 3.4-5.0 [facility] Comment on above: Performed By: #### T SH, CMP, LIPID ####[facility] [address] [place] [address]Dr. Hu Can Albumin/Globulin [Mass ratio] 1.2 {ratio} Normal [facility] Comment on above: Performed By: #### T SH, CMP, LIPID ####[facility] [address] [place] [address]Dr. Hu Can ALP [Catalytic activity/Vol] 74 U/L Normal 46-116 [facility] Comment on above: Performed By: #### T SH, CMP, LIPID ####[facility] [address] [place] [address]Dr. Hu Juan José ALT [Catalytic activity/Vol] 19 U/L Normal 14-59 [facility] Comment on above: Performed By: #### T SH, CMP, LIPID ####[facility] [address] [place] [address]Dr. Hu Can Anion gap [Moles/Vol] 11.0 mmol/L Normal [facility] Comment on above: Performed By: #### T SH, CMP, LIPID ####[facility] [address] [place], [place] [address]Dr. Hu Juan José AST [Catalytic activity/Vol] 12 U/L Critically low 15-37 [facility] Comment on above: Performed By: #### T SH, CMP, LIPID ####[facility] [address] [place], [place] [address]Dr. Hu Juan José Bilirubin [Mass/Vol] 0.7 mg/dL Normal 0.2-1.0 [facility] Comment on above: Performed By: #### T SH, CMP, LIPID ####[facility] [address] [place] [address]Dr. Hu Juan José Calcium [Mass/Vol] 8.7 mg/dL Normal 8.5-10.1 [facility] Comment on above: Performed By: #### T SH, CMP, LIPID ####[facility] [address] [place] [address]Dr. Hu Can Chloride [Moles/Vol] 102 mmol/L Normal 98-107 [facility] Comment on above: Performed By: #### T SH, CMP, LIPID ####[facility] [address] [place] [id number]. Hu Can CO2 [Moles/Vol] 28.2 mmol/L Normal 21.0-32.0 [facility] Comment on above: Performed By: #### T SH, CMP, LIPID ####[facility] [address] [place] [id number]. Hu Cna Creatinine [Mass/Vol] 0.91 mg/dL Normal 0.55-1.02 [facility] Comment on above: Performed By: #### T SH, CMP, LIPID ####[facility] [address] [place] [phone]. Hu Can EGFR-AF NIGERIEN >60 Normal >=60 [facility] Comment on above: Performed By: #### T SH, CMP, LIPID ####[facility] [address] [place] [address]Dr. Hu Can EGFR-NON AF NIGERIEN >60 Normal >=60 [facility] Comment on above: Performed By: #### T SH, CMP, LIPID ####[facility] [address] [place] [id number]. Hu Can Globulin (S) [Mass/Vol] 3.3 g/dL Normal [facility] Comment on above: Performed By: #### T SH, CMP, LIPID ####[facility] [address] [place] [id number]. Hu Can Glucose [Mass/Vol] 105 mg/dL Normal 74-106 [facility] Comment on above: Performed By: #### T SH, CMP, LIPID ####[facility] [address] [place] [id number]. Hu Can Potassium [Moles/Vol] 4.2 mmol/L Normal 3.5-5.1 [facility] Comment on above: Performed By: #### T SH, CMP, LIPID ####[facility] [address] [place] [address]Dr. Hu Can Protein [Mass/Vol] 7.1 g/dL Normal 6.4-8.2 [facility] Comment on above: Performed By: #### T SH, CMP, LIPID ####[facility] [address] [place] [phone]. Hu Can Sodium [Moles/Vol] 137 mmol/L Normal 136-145 [facility] Comment on above: Performed By: #### T SH, CMP, LIPID ####[facility] [address] [place] [id number]. Hu Can Urea nitrogen [Mass/Vol] 23.0 mg/dL Critically high 7.0-18.0 [facility] Comment on above: Performed By: #### T SH, CMP, LIPID ####[facility] [address] [place] [id number]. Hu Can Urea nitrogen/Creatinin e [Mass ratio] 25.3 mg/mg Normal [facility] Comment on above: Performed By: #### T SH, CMP, LIPID ####[facility] [address] [place] [address]Dr. Hu Can TSHon 12-13-2021 TSH 1.249 uIU/mL Normal 0.358-3.740 [facility] Comment on above: Performed By: #### T SH, CMP, LIPID ####[facility] [address] [place] [address]Dr. Hu Can XR CSPINE MIN 4 VIEWSon [...] AL CAMPOS Date: 2021-12-07 19:38 Normal [facility] MG MAMM SCREEN 3D HIEU CADon 10-28-2021 MG MAMM SCREEN 3D HIEU CAD Patient: THERESA REYES Exam Date: 10/28/2021 : 1970 Gender:F Ordering : DR GABBY DEE . Admission #: [id number] Family : Order #: [id number] CLICK HERE TO VIEW EXAM RADIOLOGY REPORT [...] ovarian cancer at age 80. LOCATION: [facility] BREAST COMPOSITION: Scattered areas fibroglandular density. [...] M.D. on 10/28/2021 at 12:02 Normal [facility] Covid-19 PCR (CVDTB)on 09-15 SARS-CoV-2 (COVID-19) RNA CLARISSA+probe Ql (Unsp spec) Not detected Normal NOT DETECTED [facility] Comment on above: Result Comment: When [...] for this test is supported by the [place] of Health and Human Service's declaration that [...] used). Performed By: #### C VDTB #### [facility] [address] [place], [place] [address] Dr. Hu Can Covid-19 PCR ([facility])on 09-14 SARS-CoV-2 (COVID-19) RNA CLARISSA+probe Ql (Unsp spec) Detected Critically abnormal NOT DETECTED [facility] Comment on above: Result Comment: This test is not yet approved or cleared by the [place] FDA. When there are no FDA-approved or cleared tests available, and other criteria are met, FDA can make tests available under an emergency access mechanism called an Emergency Use Authorization (EUA). The EUA for this test is supported by the Supervisor Microbiology Technologists of Health and Human Service's declaration that [...] be used). Performed By: #### C VDTB ####[facility] [address] [place], [place] [address]BhDr. Hu Can Pathology Noteon 07-12-2021 Pathology Note [id number]#1.00C D:127 Normal [facility] Vital Signs Date Time Vital Sign Value Performing Clinician Facility 12-29-2023 15:39-0400 Body height 170.2 cm [employer] Work Phone: [facility] 12-29-2023 15:39-0400 Body mass index (BMI) [Ratio] 30.23 kg/m2 [employer] Work Phone: [facility] 12-29-2023 15:39-0400 Body weight 87.54 kg [employer] Work Phone: [facility] 12-29-2023 15:39-0400 Diastolic blood pressure 82 mm[Hg] Dru Kinga DO Work Phone: [facility] 12-29-2023 15:39-0400 Systolic blood pressure 134 mm[Hg] Dru Kinga DO Work Phone: [facility] 09-02-2022 09:30-0400 Body height 170.18 cm Diamond [employer] Other [facility] Other 09-02-2022 09:30-0400 Body mass index (BMI) [Ratio] 30.85 kg/m2 [facility] Other [facility] Other 09-02-2022 09:30-0400 Body weight 89.36 kg Diamondgiorgi Case Other [facility] Other 04-08-2022 15:14-0500 Blood Pressure Location [facility] [place] 04-08-2022 15:14-0500 Diastolic blood pressure 88 mm[Hg] Morris NILL [facility] [place] 04-08-2022 15:14-0500 Heart rate 72 /min Morris NILL [facility] [place] 04-08-2022 15:14-0500 Respiratory rate 16 /min Morris NILL [facility] [place] 04-08-2022 15:14-0500 Systolic blood pressure 128 mm[Hg] Morris NILL [facility] [facility] [place] Encounters Encounter Date Encounter Type Care Provider Facility Start: 02-15-2024 End: 02-15-2024 Phys/qhp telephone evaluation 5-10 min Dru Kinga DO Work Phone: [facility] Comment on above: Osteopenia, unspecif [...] 01-02-2023 End: 01-02-2023 ambulatory Diamond Calvey Other [facility] Other Start: 01-02-2023 Office outpatient vi sit 15 minutes Diamond Calvey [facility] Start: 09-23-2022 End: 09-23-2022 ambulatory Diamond Calvey Other [facility] Other Start: 09-23-2022 Office outpatient vi sit 15 minutes Diamond Calvey [facility] Start: 09-02-2022 End: 09-02-2022 ambulatory Diamond Calvey Other [facility] Other Start: 09-02-2022 Office outpatient vi sit 15 minutes Diamond Calvey [facility] Start: 07-08-2022 End: 07-08-2022 ambulatory Diamond Calvey Other [facility] Other Start: 07-08-2022 Office outpatient vi sit 15 minutes Diamond Calvey [facility] Start: 06-03-2022 Office outpatient vi sit 15 minutes Diamond Case [facility] Start: 06-03-2022 End: 06-03-2022 ambulatory Diamond Case Facility:[facility] Start: 06-03-2022 End: 06-03-2022 ambulatory MD Diamond Case Work Phone: [facility] Work Phone: Start: 06-03-2022 End: 06-03-2022 Patient encounter procedure MD Diamond Case Work Phone: [facility] Start: 05-16-2022 End: 05-17-[address] GABBY DEE . Facility:[facility] Start: 05-14-2022 End: 05-22-[address] GABBY DEE . Facility:[facility] Start: 05-07-2022 End: 05-08-2022 ambulatory Morris CAGLE Facility:CD:[id number] Start: 05-06-2022 End: 05-06-2022 ambulatory Diamond Case Other [facility] Other Start: 05-06-2022 Office outpatient ne w 30 minutes Diamond Case [facility] Start: 04-08-2022 End: 04-09-2022 ambulatory Morris CAGLE Facility:[facility] Start: 04-08-2022 End: 04-08-2022 Patient encounter procedure Morris CAGLE [facility] [place] Start: 03-16-[address] GABBY DEE . Facili ty:[facility] Start: 02-26-2022 End: 02-26-[address] GABBY DEE . Facility:[facility] Start: 01-01-2022 End: 01-31-[address] GABBY DEE . Facility:[facility] Start: 12-16-2021 Encounter for genera l adult medical examination without abnormal findings DR GABBY DEE . [facility] Start: 12-13-2021 End: 12-14-[address] [...] 03-27-2031 Screening for malignant neoplasm of colon [facility] Start: 12-28-2026 Screening for malignant neoplasm of cervix Pap Smear [facility] Start: 05-27-2026 Screening for malignant neoplasm of cervix [facility] Start: 01-03-2025 End: 01-03-2025 Patient encounter procedure 01/03/2025 9:00 AM EDT Office Visit [facility] [address] [address] Dru Donato, DO [address] [place] [address] [facility] Start: 11-17-2024 Screening for malignant neoplasm of breast Mammogram [facility] Start: 12-29-2023 End: 12-28-2024 DXA Skeletal system Views for bone density DEXA bone density Imaging Routine Postmenopausal state Expected: 12/29/2023 (Approximate), Expires: 12/28/2024 [facility] Work Phone: Comment on above: Expected: 12/29/2023 (Approximate), Expires: 12/28/2024 Start: 11-15-2023 Influenza vaccination Influenza Vacc ine (#1) [facility] Start: 1970 Screening for malignant neoplasm of colon [facility] THIN PREP TIS PAP AN D HR HPV DNA THIN PREP TIS PAP AND HR HPV DNA Pathology and Cytology Routine Well woman exam with routine gynecological exam Ordered: 12/29/2023 [facility] Comment on above: Ordered: 12/29/2023 Immunizations Immunization Date Immunization Notes Care Provider Preet shields 12-14-2021 influenza virus vaccine, unspecified formulation Morris CAGLE [facility] 01-18-2021 influenza virus vaccine, unspecified formulation Dru Donato DO Work Phone: [facility] 04-30-2020 SARS-CoV-2 (COVID-19 ) Ad26 vaccine, recombinant Mroris NILL [facility] 04-02-2020 SARS-CoV-2 (COVID-19 ) Ad26 vaccine, recombinant Morris NILL [facility] Payers Date Payer Category Payer Self-pay [address] [facility] BCBS [id number] 2022 Unknown [id number] 2019 Unknown [id number] 1970 Unknown [id number] 2.16.840.1.248166.3.579.2. 727 1970 Unknown [id number] 2.16.840.1.939101.3.579.2. 727 1970 Unknown [id number] 2.16.840.1.146548.3.579.2. 593 1970 Unknown [id number] 2.16.840.1.610558.3.579.2. 593 1970 Unknown [id number] 2.16.840.1.804538.3.579.2. 593 1970 Unknown [id number] 2.16.840.1.120756.3.579.2. 593 1970 Unknown [id number] 2.16.840.1.907873.3.579.2. 593 1970 Unknown [id number] 2.16.840.1.910534.3.579.2. 593 1970 Unknown [id number] 2.16.840.1.812849.3.579.2. 593 1970 Unknown [id number] 2.16.840.1.124100.3.579.2. 593 1970 Unknown [id number] 2.16.840.1.866522.3.579.2. 593 1970 Unknown [id number] 2.16.840.1.252688.3.579.2. 593 1970 Unknown [id number] 2.16.840.1.584777.3.579.2. 593 1970 Unknown [id number] 2.16.840.1.284135.3.579.2. 1259 1959 Self-pay [id number] Unknown [id number] 2.16.840.1.589404.3.579.2. 531 Social History Date Type Detail Facility Start: 04-08-2022 End: 12-12-2022 Tobacco smoking status Never smoked tobacco (finding) [facility] [place] Tobacco smoking status Never [facility] [place] Start: 12-23-2022 End: 12-29-2023 Sex Assigned At Female [facility] Start: 1970 Sex Assigned At Female F [facility] Start: 12-23-2022 End: 12-29-2023 Alcoholic beverage [...] 04-08-2022 Functional Status N/A General [facility] Clinical Notes 12-07-2021 to 02-15-2024 Matilda Liang LPN - 02/15/2024 8:10 AM Cole Mathew LPN - 12/29/2023 3:00 PM EDT Note Date & Type Note Facility 02-15-2024 History of Presen t illness Narrative Reason for Appointment: Patient ID: Theresa Reyse is a 53 y.o. female who presents for Results (TeleHealth appointment for DEXA Scan results) Patient presents today via telephone call for a telehealth appointment. Patients Phone #: [phone] (mobile) Current Medications: currently has no medications [...] Dru Donato DO documented in this encounter [facility] 12-29-2023 History of Presen t illness Narrative Reason for Appointment: Patient ID: Theresa Reyes is a 53 y.o. female who presents for [facility] Visit Patient presents today for Annual [...] Past Medical History: Diagnosis Date Arthralgia Asthma ([facility]) Headache Hypercholesterolemia ([facility]) Visit for screening mammogram 2017 [...] nursing note reviewed. Exam conducted with a graphic arts technician present. Vitals: Estimated body mass index is [...] Dru Donato DO documented in this encounter [facility] 01-02-2023 Evaluation note Encounter Date Diagnosis Assessment [...] well as cortisone injection and surgical release. [facility] Other 07-11-2023 Evaluation note* Encounter Date Diagnosis [...] Left hand pain (ICD- 10 - M79.642) [facility] Other 06-20-2023 Evaluation note* Encounter Date Diagnosis [...] joint of left hand (ICD-10 - M18.12) [facility] Other 2023 Evaluation note* Encounter Date Diagnosis [...] joint of left hand (ICD-10 - M18.12) [facility] Other 03-21-2023 Evaluation note* Encounter Date Diagnosis [...] and tingle for hours after this injection. [facility] Other 03-04-2023 NotePROCEDURE: XR FOOT RT MIN [...] Electronically authenticated by: AL CAMPOS Date: 2022-05-17 12:06[facility]02-22-2023 NoteOPERATIVE NOTE OPERATION DATE: 05/07/2022 PREOPERATIVE [...] in good condition. CC: Gabby Dee M.D.[facility] NoteOPERATIVE NOTE OPERATION DATE: 05/07/2022 ADDENDUM: The distal rectal 4 mm irregular flat polyp was removed with hot snare with good hemostasis, not with cold biopsy forceps.[facility] 05-06-2022 Evaluation note* Encounter Date Diagnosis [...] Apr, Right hand pain (ICD-10 - M79.641) [facility] Other 09-24-2022 NotePROCEDURE: XR SHOULDER LT 2V or > COMPARISON: None. HISTORY: Impingement syndrome of shoulder region FINDINGS: BONES:No fracture, acute abnormality, or significant arthropathy. SOFT TISSUES:Negative. No visible soft tissue swelling. EFFUSION:None visible. OTHER: Negative. IMPRESSION: No acute disease. Electronically authenticated by: AL CAMPOS Date: 2021-12-07 19:36[facility] note No data available for this section [facility] [place] Evaluation noteNo assessment information available [facility] Work Phone: Evaluation note* Diagnosis Postmenopausal state Asymptomatic postmenopausal status (age-related) (natural) Well woman exam with routine gynecological exam Routine gynecological examination documented in this encounter [facility] HealthcareEvaluation note* Diagnosis Osteopenia, unspecified location documented in this encounter [facility] HealthcareHistory general Narrative - Reported* Type Description Date Medical History high cholesterol Surgical History Foot Surgery Surgical History clogged tear duct [facility] Other Hospital Discharge instructions No data available for this section [facility] [place] Progress note No data available for this section [facility] [place] Summary Purpose Family History No Family History [...] Dates Diamond Case MD Attending Provider Active Counter Helper Relationship Specialty Start Date End Date Gabby Dee MD [address] [place] [address] PCP - General Family Medicine 12/23/22 Counter Helper Relationship Specialty Start Date End Date Gabby Dee MD [address] [place] [address] PCP - General Family Medicine 12/23/22 Counter Helper Relationship Specialty Start Date End Date Gabby Dee MD [address] [place] [address] PCP - General Family Medicine 12/23/22 Counter Helper Relationship Specialty Start Date End Date Gabby Dee MD [address] [place] [address] PCP - General Family Medicine 12/23/22 INFORMATION SOURCE (unrecogn ized section and content) DATE CREATED AUTHOR 05/16/2022 [facility] DATE CREATED AUTHOR AUTHOR'S ORGANIZ ATION 06/18/2022 [facility] DATE CREATED AUTHOR AUTHOR'S ORGANIZ ATION 06/21/2022 [facility] DATE CREATED AUTHOR AUTHOR'S ORGANIZ ATION 12/31/2023 [facility] EPIC REASON FOR VISIT [...] BE BASED ON THE PRIMARY CLINICAL RECORDS. [facility] [employer] [facility]. provides no warranty or guarantee of the accuracy or completeness of information in this document.
[2024-11-28 09:47] LABS: Free T3 2.57 pg/mL (2.18-3.98); Magnesium 1.9 mg/dL (1.8-2.4); Thyroid Stimulating Hormone 1.285 uIU/mL (0.358-3.740)
== END 2024-11-28 07:53 | disposition home or self-care (01) ==
LOC: LAB 07:57
PROVIDERS: PCP Family Medicine; Visit Provider Family Medicine
DX: R00.2 Palpitations (principal)
CPT/HCPCS: 36415; 83735; 84436; 84443; 84481

== ENCOUNTER 2024-12-05 08:21 | Outpatient (OUT) | payer BC, SELFPAY ==
--- OUTSIDE RECORDS SUMMARY | 2024-12-05 08:29 | XMS_ITS | CCD ---
Author Organization [facility] Care Team Providers Care African Studies Professor Name Role Phone Gabby Dee Primary Care Physician Morris CAGLE Attending Unavailable Morris CAGLE Attending Unavailable Diamond Case Unavailable MD Diamond Case Attending Provider [phone] Diamond Case Admitting Unavailable Diamond Case Attending [...] Unavailable HOY ., DR PIERRE Admitting Unavailable TAMPA, DR AL Shaikh Consulting Unavailable HOY ., [...] Unavailable HOY ., DR PIERRE Consulting Unavailable TAMPA, DR AL Shaikh Consulting Unavailable HOY ., DR PIERRE Admitting Unavailable HOY ., DR PIERRE Attending Unavailable HOY ., DR PIERRE Primary Care Unavailable Gabby Dee MD Primary Care Provider [phone] DRU DONATO Attending Unavailable Allergies Allergy Classification Reported Allergen(s) Allergy Type Date of Onset Reaction(s) Facility (1 source) No Known Medication Allergies; Translations: [No Known Medication Allergies] Propensity to adverse reactions (disorder) [facility] Repository (2 sources) Baclofen Drug Allergy [facility] Repository Medications Current Medications Medication [...] GDLNon AGE GDLN ACOG TESTING Note . [facility] Comment on above: TESTS RESULT FLAG UN ITS REF RANGE LAB Clinician Provided Cytology Information Source.............Cervix;Endocervix No. of containers..01 ThinPrep Vial Age Algo ACOG Sheila... 30-65 01 FLAG LEGEND: L-Low Normal,H-High Normal,LL-Alert Low,HH-Alert High <-Panic Low,>-Panic High,A-Abnormal,AA-Critical Abnormal Performed at: 01 =G [address] [place] [address] Sharmaine Hall MD, HPV APTIMA Negative Negative [facility] e Comment on above: This nucleic acid am plification test detects fourteen high- risk HPV types (16,18,31,33,35,39,45,51,52,56,58,59,66,68) without differentiation. Performed at: =G - [facility] [id number] Public Relations Account Executive: Sharmaine Hall MD, Phone: [phone] Performed at: - [facility] [id number] Public Relations Account Executive: Sharmaine Hall MD, Phone: [phone] IGP, APTIMA HPV, RFX 16/18,45 Note . [facility] Comment on above: TESTS RESULT FLAG U NITS REF RANGE LAB DIAGNOSIS: 02 NEGATIVE FOR INTRAEPITHELIAL LESION OR MALIGNANCY. Specimen adequacy: 02 Satisfactory for evaluation. Endocervical and/or squamous metaplastic cells (endocervical component) are present. Performed by: Mandy Luis, Epic Manager (ASCP) . 02 Note: Note 02 [...] <-Panic Low,>-Panic High,A-Abnormal,AA-Critical Abnormal Performed at: [address] [address] Sharmaine Hall MD, BRUSH-SPATULA CERVIX ENDOCERVIX [facility] XR hand LT min 3V*on 023 XR hand LT min 3V* [address] [address] XRay Report Signed Patient: Theresa Reyes MR#: [id number] : 1970 Acct:[id number] Age/Sex: 52 / F ADM Date: 06/03/22 Loc: [facility] Room: Type: [facility] Attending Dr: Diamond Case MD Copies to: [...] Miguel Ramey M.D.06/03/2022 1:11 PM Dictation Location: [place] [address] Transcribed By: [facility] 06/03/22 1311 Dictated By: Miguel Ramey II, MD 06/03/22 1310 Signed By: 06/03/22 [address] [facility] XR hand LT min 3V* [facility] [employer] Other XR hand LT min 3V* [facility] [employer] Other XR hand LT min 3V* [address] [employer] Other XR hand LT min 3V* YULIANA Doshi [address] [employer] Other XR hand LT min 3V* XRay Report [employer] Other XR hand LT min 3V* Signed [employer] Other XR hand LT min 3V* Patient: Theresa Reyes MR#: [id number] [employer] Other XR hand LT min 3V* [address] [employer] Other XR hand LT min 3V* : 1970 Acct:[id number] [employer] Other XR hand LT min 3V* Age/Sex: 52 / F ADM Date: 06/03/22 [employer] Other XR hand LT min 3V* Loc: [facility] Room: Type : REG CLI [employer] Other XR hand LT min 3V* Attending Dr: Benny Case MD [employer] Other XR hand LT min 3V* Copies to: Diamond Case MD [employer] Other XR hand LT min 3V* Ordering Provider: Diamond Case MD [employer] Other XR hand LT min 3V* Date of Service: 06/03/22 [employer] Other XR hand LT min 3V* XR/XR hand LT min 3V*: PAIN [employer] Other XR hand LT min 3V* XR hand LT min 3V* 06/03/2022 8:44 AM [employer] Other XR hand LT min 3V* SIGNS AND SYMPTOMS: Left thumb/first metacarpal pain [employer] Other XR hand LT min 3V* PROTOCOL: Frontal, lateral, and oblique radiographs of the left hand: [employer] Other XR hand LT min 3V* COMPARISON: None [employer] Other XR hand LT min 3V* FINDINGS: [employer] Other XR hand LT min 3V* The bones are in anatomic alignment. There is mild degenerative change at the first carpometacarpal [employer] Other XR hand LT min 3V* junction. There is preservation of the joint spaces, otherwise. There is no fracture or dislocation. [employer] Other XR hand LT min 3V* No significant soft tissue swelling. [employer] Other XR hand LT min 3V* XR/XR hand LT min 3V* [employer] Other XR hand LT min 3V* IMPRESSION: [employer] Other XR hand LT min 3V* No acute bony injury. [employer] Other XR hand LT min 3V* Mild degenerative fa cet noted at the base of the thumb. [employer] Other XR hand LT min 3V* Impression dictated by: Miguel Ramey M.D.06/03/2022 1:11 PM [employer] Other XR hand LT min 3V* Dictation Location: [place] [address] [employer] Other XR hand LT min 3V* Transcribed By: KARIRE 06/03/22 [facility] [employer] Other XR hand LT min 3V* Dictated By: Miguel Ramey II, MD 06/03/[address] [place] [address] [employer] Other XR hand LT min 3V* Signed By: [employer] Other XR hand LT min 3V* 06/03/[address] [place] [address] [employer] Other Rem[employer]erson 05-15-2022 Reminders - From: Jessica Mims LPN To: N - Clinical; Sent: 05/15/2022 07:57:39 EST Show up: 04/06/2025 07:00:00 EST Subject: colonoscopy recall Due Date/Time: 05/07/2025 07:00:00 EST Reminder/Recall Patient is due for colonoscopy 05/07/2025 due to history of tubulovillous adenoma. Normal [facility] Pathology Noteon 05-09-2022 Pathology Note [id number]#1.00CD :127 Normal [facility] Outside Colonoscopyon 2022 Outside Colonoscopy [id number]#[id number] D:127 Normal [facility] PREG HCG QUALon 05-07-2022 , QUAL Negative Normal NEGATIVE [facility] Comment on above: Performed By: #### P REG #### [facility] [address] [place] [address] Dr. Hu Can Pre-Certification Formon Pre-Certification Form [id number]#1.00 CD:127 Normal [facility] Consent for Procedure/Surger yon 04-10-2022 Consent for Procedure/Surgery [id number]#1.00C D:127 Normal [facility] Facesheeton 04-10-2022 Facesheet [id number]#1.00C D:127 Normal [facility] General Surgery Office/Clini c Noteon 04-08-2022 General [...] (COVID-19) Ad26 vaccine 04/02/2020 Recorded Normal [facility] Comment on above: Result Comment: Elec tronically Signed By: JEFF PONCE, Morris R\.br\Date and Time Signed: 04/08/22 15:33 EST Covid-19 PCR (CVDTBH)on 02-13 SARS-CoV-2 (COVID-19) RNA CLARISSA+probe Ql (Unsp spec) Not detected Normal NOT DETECTED [facility] Comment on above: Result Comment: [...] for this test is supported by the [employer] of Health and Human Service's declaration that [...] By: #### C VDTBH #### [facility] [address] [place] [address] Dr. Hu Can INFLUENZA A AND B AGon 02-[facility] SEE BELOW Normal [facility] Comment on above: Result Comment: Nega tive for Flu A protein angiten. Infection due to Flu A cannot be ruled out. Flu A angiten in the sample may be below the detection limit of the test. Performed By: #### I NFLUAB #### [facility] [address] [place] [address] Dr. Hu [address] [facility] [facility] SEE BELOW Normal [facility] Comment on above: Result Comment: Nega tive for Flu B protein antigen. Infection due to Flu B cannot be ruled out. Flu B antigen in the sample may be below the detection limit of the test. Performed By: #### I NFLUAB #### [facility] [address] [place] [address] Dr. Hu Can INFLUENZA A AG Negative Normal NEGATIVE SEE COMMENT [facility] Comment on above: Performed By: #### I NFLUAB #### [facility] [address] [place] [address] Dr. Hu Can INFLUENZA B AG Negative Normal NEGATIVE SEE COMMENT [facility] Comment on above: Performed By: #### I NFLUAB #### [facility] [address] [place] [address] Dr. Hu Can INTERNAL CONTROLS Within Normal Limits Normal Wi thin Normal Limits [facility] Comment on above: Performed By: #### I NFLUAB #### [facility] [address] [place] [address] Dr. Hu Can CBC AUTO DIFFon 12-13-2021 BASO # 0.0 103/ul Normal 0.0-0.1 [facility] Comment on above: Performed By: #### C BC #### [facility] [address] [place] [address] Dr. Hu Can Basophils/100 WBC (Bld) 0.3 % Normal 0.2-2.0 [facility] Comment on above: Performed By: #### C BC #### [facility] [address] [place] [address] Dr. Hu Can EO # 0.1 103/ul Normal 0.0-0.7 [facility] Comment on above: Performed By: #### C BC #### [facility] [address] [place] [address] Dr. Hu Can Eosinophils/100 WBC (Bld) 1.1 % Normal 0.9-7.0 [facility] Comment on above: Performed By: #### C BC #### [facility] [address] [place] [address] Dr. Hu Can Erythrocyte distribution width (RBC) [Ratio] 13.7 % Normal 11.0-15.0 [facility] Comment on above: Performed By: #### C BC #### [facility] [address] [place] [address] Dr. Hu Can Hematocrit (Bld) [Volume fraction] 44.6 % Normal 36.0-48.0 [facility] Comment on above: Performed By: #### C BC #### [facility] [address] [place] [address] Dr. Hu Can Hemoglobin (Bld) [Mass/Vol] 14.5 g/dL Normal 12.0-16.0 [facility] Comment on above: Performed By: #### C BC #### [facility] [address] [place] [address] Dr. Hu Can IG # 0.02 10e3/ul Normal 0.00-0.03 [facility] Comment on above: Performed By: #### C BC #### [facility] [address] [place] [address] Dr. Hu Can IG % 0.3 % Normal 0.0-0.5 [facility] Comment on above: Performed By: #### C BC #### [facility] [address] [place] [address] Dr. Hu Can LYMPH # 2.3 103/ul Normal 1.2-3.8 [facility] Comment on above: Performed By: #### C BC #### [facility] [address] [place] [address] Dr. Hu Can Lymphocytes/100 WBC (Bld) 30.5 % Normal 20.5-60.0 [facility] Comment on above: Performed By: #### C BC #### [facility] [address] [place] [address] Dr. Hu Can MANUAL DIFF REQ NO Normal [facility] Comment on above: Performed By: #### C BC #### [facility] [address] [place] [address] Dr. Hu Can MCH (RBC) [Entitic mass] 29.1 pg Normal 26.7-34.0 [facility] Comment on above: Performed By: #### C BC #### [facility] [address] [place] [address] Dr. Hu Can MCHC (RBC) [Mass/Vol] 32.5 g/dL Normal 29.9-35.2 [facility] Comment on above: Performed By: #### C BC #### [facility] [address] [id number] [address] Hu Can MCV (RBC) [Entitic vol] 89.6 fL Normal 81.0-99.0 [facility] Comment on above: Performed By: #### C BC #### [facility] [address] [place] [address] [address] Hu Can MONO # 0.5 103/ul Normal 0.3-0.8 [facility] Comment on above: Performed By: #### C BC #### [facility] [address] [place] [address] Dr. Hu Can Monocytes/100 WBC (Bld) 6.8 % Normal 1.7-12.0 [facility] Comment on above: Performed By: #### C BC #### [facility] [address] [place] [address] Dr. Hu Can NEUT # 4.6 103/ul Normal 1.4-6.5 [facility] Comment on above: Performed By: #### C BC #### [facility] [address] [place] [address] Dr. Hu Can Neutrophils/100 WBC (Bld) 61.0 % Normal 43.0-75.0 [facility] Comment on above: Performed By: #### C BC #### [facility] [address] [place] [address] Dr. Hu Can Platelet mean volume (Bld) [Entitic vol] 9.3 fL Critically low 9.5-13.5 [facility] Comment on above: Performed By: #### C BC #### [facility] [address] [place] [address] Dr. Hu Can PLT 296 103/ul Normal 150-450 [facility] Comment on above: Performed By: #### C BC #### [facility] [address] [place] [address] Dr. Hu Can RBC 4.98 106/ul Normal 4.20-5.40 [facility] Comment on above: Performed By: #### C BC #### [facility] [address] [place] [address] Dr. Hu Can WBC 7.5 103/ul Normal 4.0-11.0 [facility] Comment on above: Performed By: #### C BC #### [facility] [address] [place] [address] [address] Hu Can GLYCOHEMOGLOBIN A1Con 2021 ADA RECOMMENDATION SEE BELOW Normal [facility] Comment on above: Result Comment: ADA RECOMMENDED LIMIT 4.0 - 6.0 ADA THERAPEUTIC TARGET < 7.0 ACTION SUGGESTED > 7.0 Performed By: #### A 1C #### [facility] [address] [place] [address] [address] Hu Can Glucose [Mass/Vol] 114 mg/dL Normal [facility] Comment on above: Performed By: #### A 1C #### [facility] [address] [place] [address] [address] Hu Can HbA1c (Bld) [Mass fraction] 5.6 % Normal 4.5-6.2 [facility] Comment on above: Performed By: #### A 1C #### [facility] [address] [place] [address] [address] Hu Can LIPID PROFILEon 12-13-2021 CHOL-HDL RATIO NORM SEE BELOW Normal [facility] Comment on above: Result Comment: 3.3 - 4.4 LOW RISK 4.4 - 7.1 AVERAGE RISK 7.1 - 11.0 MODERATE RISK >11.0 HIGH RISK Performed By: #### T SH, CMP, LIPID ####[facility] [address] [place] [address]Dr. Hu Can Cholesterol [Mass/Vol] 279 mg/dL Critically high <=200 [facility] Comment on above: Performed By: #### T SH, CMP, LIPID ####[facility] [address] [place] [id number]. Hu Can Cholesterol in HDL [Mass/Vol] 50 mg/dL Normal 40-60 [facility] Comment on above: Performed By: #### T SH, CMP, LIPID ####[facility] [address] [place] [address]Dr. Hu Can Cholesterol in LDL [Mass/Vol] 197.8 mg/dL Normal [facility] Comment on above: Performed By: #### T SH, CMP, LIPID ####[facility] [address] [place] [address]Dr. Hu Can Cholesterol.total/ Cholesterol in HDL [Mass ratio] 5.6 {ratio} Normal [facility] Comment on above: Performed By: #### T SH, CMP, LIPID ####[facility] [address] [place] [address]Dr. Hu Can HDL NORMAL > or = 60 mg/dl - LO W CARDIOVASCULAR RISK <40 mg/dl - HIGH CARDIOVASCULAR RISK Normal [facility] Comment on above: Performed By: #### T SH, CMP, LIPID ####[facility] [address] [place] [address]Dr. Hu Can LDL CALC NORMAL SEE BELOW Normal [facility] Comment on above: Result Comment: <100 mg/dl OPTIMAL 100 - 129 mg/dl NEAR OR ABOVE OPTIMAL 130 - 159 mg/dl BORDERLINE HIGH 160 - 189 mg/dl HIGH >190 mg/dl VERY HIGH Performed By: #### T SH, CMP, LIPID ####[facility] [address] [place] [address]Dr. Hu Can Triglyceride [Mass/Vol] 156 mg/dL Critically high <=150 [facility] Comment on above: Performed By: #### T SH, CMP, LIPID ####[facility] [address] [place] [address]Dr. Hu Can VLDL CALC 31.2 mg/dL Normal [facility] Comment on above: Performed By: #### T SH, CMP, LIPID ####[facility] [address] [place] [address]Dr. Hu Can PROF 14(COMP METB)on 022 Albumin [Mass/Vol] 3.8 g/dL Normal 3.4-5.0 [facility] Comment on above: Performed By: #### T SH, CMP, LIPID ####[facility] [address] [place] [address]Dr. Hu Can Albumin/Globulin [Mass ratio] 1.2 {ratio} Normal [facility] Comment on above: Performed By: #### T SH, CMP, LIPID ####[facility] [address] [place] [address]Dr. Hu Can ALP [Catalytic activity/Vol] 74 U/L Normal 46-116 [facility] Comment on above: Performed By: #### T SH, CMP, LIPID ####[facility] [address] [place] [address]Dr. Hu Juan José ALT [Catalytic activity/Vol] 19 U/L Normal 14-59 [facility] Comment on above: Performed By: #### T SH, CMP, LIPID ####[facility] [address] [place] [address]Dr. Hu Can Anion gap [Moles/Vol] 11.0 mmol/L Normal [facility] Comment on above: Performed By: #### T SH, CMP, LIPID ####[facility] [address] [place], [place] [address]Dr. Hu Juan José AST [Catalytic activity/Vol] 12 U/L Critically low 15-37 [facility] Comment on above: Performed By: #### T SH, CMP, LIPID ####[facility] [address] [place], [place] [address]Dr. Hu Juan José Bilirubin [Mass/Vol] 0.7 mg/dL Normal 0.2-1.0 [facility] Comment on above: Performed By: #### T SH, CMP, LIPID ####[facility] [address] [place] [address]Dr. Hu Juan José Calcium [Mass/Vol] 8.7 mg/dL Normal 8.5-10.1 [facility] Comment on above: Performed By: #### T SH, CMP, LIPID ####[facility] [address] [place] [address]Dr. Hu Can Chloride [Moles/Vol] 102 mmol/L Normal 98-107 [facility] Comment on above: Performed By: #### T SH, CMP, LIPID ####[facility] [address] [place] [id number]. Hu Can CO2 [Moles/Vol] 28.2 mmol/L Normal 21.0-32.0 [facility] Comment on above: Performed By: #### T SH, CMP, LIPID ####[facility] [address] [place] [id number]. Hu Can Creatinine [Mass/Vol] 0.91 mg/dL Normal 0.55-1.02 [facility] Comment on above: Performed By: #### T SH, CMP, LIPID ####[facility] [address] [place] [id number]. Hu Can EGFR-AF [place] >60 Normal >=60 [facility] Comment on above: Performed By: #### T SH, CMP, LIPID ####[facility] [address] [place] [address]Dr. Hu Can EGFR-NON AF [place] >60 Normal >=60 [facility] Comment on above: Performed By: #### T SH, CMP, LIPID ####[facility] [address] [place] [id number]. Hu Can Globulin (S) [Mass/Vol] 3.3 g/dL Normal [facility] Comment on above: Performed By: #### T SH, CMP, LIPID ####[facility] [address] [place] [id number]. Hu Can Glucose [Mass/Vol] 105 mg/dL Normal 74-106 [facility] Comment on above: Performed By: #### T SH, CMP, LIPID ####[facility] [address] [place] [phone]. Hu Can Potassium [Moles/Vol] 4.2 mmol/L Normal 3.5-5.1 [facility] Comment on above: Performed By: #### T SH, CMP, LIPID ####[facility] [address] [place] [address]Dr. Hu Can Protein [Mass/Vol] 7.1 g/dL Normal 6.4-8.2 [facility] Comment on above: Performed By: #### T SH, CMP, LIPID ####[facility] [address] [place] [id number]. Hu Can Sodium [Moles/Vol] 137 mmol/L Normal 136-145 [facility] Comment on above: Performed By: #### T SH, CMP, LIPID ####[facility] [address] [place] [id number]. Hu Can Urea nitrogen [Mass/Vol] 23.0 mg/dL Critically high 7.0-18.0 [facility] Comment on above: Performed By: #### T SH, CMP, LIPID ####[facility] [address] [place] [phone]. Hu Can Urea nitrogen/Creatinin e [Mass ratio] 25.3 mg/mg Normal [facility] Comment on above: Performed By: #### T SH, CMP, LIPID ####[facility] [address] [place] [address]Dr. Hu Can TSHon 12-13-2021 TSH 1.249 uIU/mL Normal 0.358-3.740 [facility] Comment on above: Performed By: #### T SH, CMP, LIPID ####[facility] [address] [place] [address]Dr. Hu Can XR CSPINE MIN 4 VIEWSon [...] Date: 2021-12-07 19:38 Normal [facility] MG MAMM SCREEN 3D HIEU CADon 10-28-2021 MG MAMM SCREEN 3D HIEU CAD Patient: THERESA REYES Exam Date: 10/28/2021 : 1970 Gender:F Ordering : DR GABBY DEE . Admission #: [id number] Family : Order #: [id number] CLICK HERE TO VIEW EXAM RADIOLOGY REPORT [...] at age 80. LOCATION: [facility] BREAST COMPOSITION: Scattered areas fibroglandular [...] 10/28/2021 at 12:02 Normal [facility] Covid-19 PCR (CVDTB)on 09-15 SARS-CoV-2 (COVID-19) RNA CLARISSA+probe Ql (Unsp spec) Not detected Normal NOT DETECTED [facility] Comment on above: Result Comment: [...] for this test is supported by the [place] of Health and Human Service's declaration that [...] By: #### C VDTB #### [facility] [address], [place] [address] Dr. Hu Can Covid-19 PCR ([facility] [facility])on 09-14 SARS-CoV-2 (COVID-19) RNA CLARISSA+probe Ql (Unsp spec) Detected Critically abnormal NOT DETECTED [facility] Comment on above: Result Comment: This test is not yet approved or cleared by the [place] FDA. When there are no FDA-approved or cleared tests available, and other criteria are met, FDA can make tests available under an emergency access mechanism called an Emergency Use Authorization (EUA). The EUA for this test is supported by the Hoist Operator of Health and Human Service's declaration that [...] Performed By: #### C VDTB ####[facility] [address] [place], [place] [address]MkDr. Hu Can Pathology Noteon 07-12-2021 Pathology Note [id number] D:127 Normal [facility] Vital Signs Date Time Vital Sign Value Performing Clinician Facility 12-29-2023 15:39-0400 Body height 170.2 cm [facility] Work Phone: [facility] 12-29-2023 15:39-0400 Body mass index (BMI) [Ratio] 30.23 kg/m2 [facility] Work Phone: [facility] 12-29-2023 15:39-0400 Body weight 87.54 kg [facility] Work Phone: [facility] 12-29-2023 15:39-0400 Diastolic blood pressure 82 mm[Hg] Dru Kinga DO Work Phone: [facility] 12-29-2023 15:39-0400 Systolic blood pressure 134 mm[Hg] Dru Kinga DO Work Phone: [facility] 09-02-2022 09:30-0400 Body height 170.18 cm Diamond Lovli Other [employer] Other 09-02-2022 09:30-0400 Body mass index (BMI) [Ratio] 30.85 kg/m2 [facility] Other [employer] Other 09-02-2022 09:30-0400 Body weight 89.36 kg Diamondgiorgi Case Other [employer] Other 04-08-2022 15:14-0500 Blood Pressure Location [facility] [place] 04-08-2022 15:14-0500 Diastolic blood pressure 88 mm[Hg] Morris NILL [facility] [place] 04-08-2022 15:14-0500 Heart rate 72 /min Morris NILL [facility] [place] 04-08-2022 15:14-0500 Respiratory rate 16 /min Morris NILL [facility] [place] 04-08-2022 15:14-0500 Systolic blood pressure 128 mm[Hg] Morris NILL [facility] [place] Encounters Encounter Date Encounter Type Care Provider Facility Start: 02-15-2024 End: 02-15-2024 Phys/qhp telephone evaluation 5-10 min Dru Kinga DO Work Phone: [facility] Comment on above: Osteopenia, [...] 01-02-2023 End: 01-02-2023 ambulatory Diamond Calvey Other [employer] Other Start: 01-02-2023 Office outpatient vi sit 15 minutes Diamond Calvey [facility] Start: 09-23-2022 End: 09-23-2022 ambulatory Diamond Calvey Other [employer] Other Start: 09-23-2022 Office outpatient vi sit 15 minutes Diamond Calvey [facility] Start: 09-02-2022 End: 09-02-2022 ambulatory Diamond Calvey Other [employer] Other Start: 09-02-2022 Office outpatient vi sit 15 minutes Diamond Calvey [facility] Start: 07-08-2022 End: 07-08-2022 ambulatory Diamond Calvey Other [employer] Other Start: 07-08-2022 Office outpatient vi sit 15 minutes Diamond Calvey [facility] Start: 06-03-2022 Office outpatient vi sit 15 minutes Diamond Case [facility] Start: 06-03-2022 End: 06-03-2022 ambulatory Diamond Case Facility:[facility] Start: 06-03-2022 End: 06-03-2022 ambulatory MD Diamond Case Work Phone: [facility] Work Phone: Start: 06-03-2022 End: 06-03-2022 Patient encounter procedure MD Diamond Case Work Phone: [facility] Start: 05-16-2022 End: 05-17-[address] GABBY DEE . Facility:[facility] Start: 05-14-2022 End: 05-22-[address] GABBY DEE . Facility:[facility] Start: 05-07-2022 End: 05-08-2022 ambulatory Morris CAGLE Facility:CD:[id number] Start: 05-06-2022 End: 05-06-2022 ambulatory Diamond Case Other [employer] Other Start: 05-06-2022 Office outpatient ne w 30 minutes Diamond Case [facility] Start: 04-08-2022 End: 04-09-2022 ambulatory Morris CAGLE Facility:[facility] Start: 04-08-2022 End: 04-08-2022 Patient encounter procedure Morris CAGLE [facility] [place] Start: 03-16-[address] GABBY DEE . Facili ty:[facility] Start: 02-26-2022 End: 02-26-[address] GABBY DEE . Facility:[facility] Start: 01-01-2022 End: 01-31-[address] GABBY DEE . Facility:[facility] Start: 12-16-2021 Encounter for genera l adult medical examination without abnormal findings DR GABBY DEE . [facility] Start: 12-13-2021 End: 12-14-2021 ambulatory [...] 03-27-2031 Screening for malignant neoplasm of colon [facility] Start: 12-28-2026 Screening for malignant neoplasm of cervix Pap Smear [facility] Start: 05-27-2026 Screening for malignant neoplasm of cervix [facility] Start: 01-03-2025 End: 01-03-2025 Patient encounter procedure 01/03/2025 9:00 AM EDT Office Visit [facility] [address] [place] [address] Dru Donato, DO [address] [place] [address] [facility] Start: 11-17-2024 Screening for malignant neoplasm of breast Mammogram [facility] Start: 12-29-2023 End: 12-28-2024 DXA Skeletal system Views for bone density DEXA bone density Imaging Routine Postmenopausal state Expected: 12/29/2023 (Approximate), Expires: 12/28/2024 [facility] Work Phone: Comment on above: Expected: 12/29/2023 (Approximate), Expires: 12/28/2024 Start: 11-15-2023 Influenza vaccination Influenza Vacc ine (#1) [facility] Start: 1970 Screening for malignant neoplasm of colon [facility] THIN PREP TIS PAP AN D HR HPV DNA THIN PREP TIS PAP AND HR HPV DNA Pathology and Cytology Routine Well woman exam with routine gynecological exam Ordered: 12/29/2023 [facility] Comment on above: Ordered: 12/29/2023 Immunizations Immunization Date Immunization Notes Care Provider Preet shields 12-14-2021 influenza virus vaccine, unspecified formulation Morris CAGLE [facility] 01-18-2021 influenza virus vaccine, unspecified formulation Dru Donato DO Work Phone: [facility] 04-30-2020 SARS-CoV-2 (COVID-19 ) Ad26 vaccine, recombinant Morris NILL [facility] 04-02-2020 SARS-CoV-2 (COVID-19 ) Ad26 vaccine, recombinant Morris NILL [facility] Payers Date Payer Category Payer Self-pay 2022 [facility] BCBS [id number] 2022 Unknown [id number] 2019 Unknown [id number] 1970 Unknown [id number] 2.16.840.1.182604.3.579.2. 727 1970 Unknown [id number] 2.16.840.1.048555.3.579.2. 727 1970 Unknown [id number] 2.16.840.1.104724.3.579.2. 593 1970 Unknown [id number] 2.16.840.1.811962.3.579.2. 593 1970 Unknown [id number] 2.16.840.1.293914.3.579.2. 593 1970 Unknown [id number] 2.16.840.1.078468.3.579.2. 593 1970 Unknown [id number] 2.16.840.1.996556.3.579.2. 593 1970 Unknown [id number] 2.16.840.1.030476.3.579.2. 593 1970 Unknown [id number] 2.16.840.1.808873.3.579.2. 593 1970 Unknown [id number] 2.16.840.1.390256.3.579.2. 593 1970 Unknown [id number] 2.16.840.1.709869.3.579.2. 593 1970 Unknown [id number] 2.16.840.1.867592.3.579.2. 593 1970 Unknown [id number] 2.16.840.1.491949.3.579.2. 593 1970 Unknown [id number] 2.16.840.1.509367.3.579.2. 1259 1959 Self-pay [id number] Unknown [id number] 2.16.840.1.798116.3.579.2. 531 Social History Date Type Detail Facility Start: 04-08-2022 End: 12-12-2022 Tobacco smoking status Never smoked tobacco (finding) [facility] [place] Tobacco smoking status Never [facility] [place] Start: 12-23-2022 End: 12-29-2023 Sex Assigned At Female [facility] Start: 1970 Sex Assigned At Female F [facility] Start: 12-23-2022 End: 12-29-2023 Alcoholic beverage intake Current drinker of alcohol (finding) [facility] Start: 12-23-2022 End: 12-29-2023 History of Social function [facility] Start: 12-12-2022 Alcohol Comment Alcohol: 1 or 2 drinks on a typical day/monthly or less Caffeine: 2-3 cups/day [facility] Start: 09-03-2022 Gender identity Identifies as female gender (finding) [facility] Functional Status Date Assessment Result Facility 04-08-2022 Functional Status N/A [facility] Clinical Notes 12-07-2021 to 02-15-2024 Matilda [...] for a telehealth appointment. Patients Phone #: [phone] (mobile) Current Medications: currently has no medications [...] Dru Donato DO documented in this encounter [facility] 12-29-2023 History of Presen t illness Narrative Reason for Appointment: Patient ID: Theresa Reyes is a 53 y.o. female who presents for [employer] Visit Patient presents today for Annual [...] Past Medical History: Diagnosis Date Arthralgia Asthma ([facility]) Headache Hypercholesterolemia ([facility]) Visit for screening mammogram 2017 neg [...] nursing note reviewed. Exam conducted with a combining machine operator present. Vitals: Estimated body mass [...] Dru Donato DO documented in this encounter [facility] 01-02-2023 Evaluation note Encounter Date Diagnosis [...] well as cortisone injection and surgical release. [employer] Other 07-11-2023 Evaluation note* Encounter Date Diagnosis [...] Left hand pain (ICD- 10 - M79.642) [employer] Other 06-20-2023 Evaluation note* Encounter Date Diagnosis [...] joint of left hand (ICD-10 - M18.12) [employer] Other 2023 Evaluation note* Encounter Date Diagnosis [...] joint of left hand (ICD-10 - M18.12) [employer] Other 03-21-2023 Evaluation note* Encounter Date Diagnosis [...] and tingle for hours after this injection. [employer] Other 03-04-2023 NotePROCEDURE: XR FOOT RT MIN [...] authenticated by: AL CAMPOS Date: 2022-05-17 12:06[facility]02-22-2023 NoteOPERATIVE NOTE OPERATION DATE: 05/07/2022 PREOPERATIVE DIAGNOSIS: [...] condition. CC: Gabby Dee M.D.[facility] [id number] NoteOPERATIVE NOTE OPERATION DATE: 05/07/2022 ADDENDUM: The distal rectal 4 mm irregular flat polyp was removed with hot snare with good hemostasis, not with cold biopsy forceps.[facility] 05-06-2022 Evaluation note* Encounter Date [...] Apr, Right hand pain (ICD-10 - M79.641) [employer] Other 09-24-2022 NotePROCEDURE: XR SHOULDER LT 2V or > COMPARISON: None. HISTORY: Impingement syndrome of shoulder region FINDINGS: BONES:No fracture, acute abnormality, or significant arthropathy. SOFT TISSUES:Negative. No visible soft tissue swelling. EFFUSION:None visible. OTHER: Negative. IMPRESSION: No acute disease. Electronically authenticated by: AL CAMPOS Date: 2021-12-07 19:36[facility] Plan note No data available for this section [facility] [place] Evaluation noteNo assessment information available [facility] Work Phone: Evaluation note* Diagnosis Postmenopausal state Asymptomatic postmenopausal status (age-related) (natural) Well woman exam with routine gynecological exam Routine gynecological examination documented in this encounter [facility] HealthcareEvaluation note* Diagnosis Osteopenia, unspecified location documented in this encounter [facility] HealthcareHistory general Narrative - Reported* Type Description Date Medical History high cholesterol Surgical History Foot Surgery Surgical History clogged tear duct [employer] Other Hospital Discharge instructions No data available for this section [facility] [place] Progress note No data available for this section [facility] [place] Summary Purpose Family History No Family History [...] Dates Diamond Case MD Attending Provider Active African Studies Professor Relationship Specialty Start Date End Date Gabby Dee MD [address] [place] [address] PCP - General Family Medicine 12/23/22 African Studies Professor Relationship Specialty Start Date End Date Gabby Dee MD [address] [place] [address] PCP - General Family Medicine 12/23/22 African Studies Professor Relationship Specialty Start Date End Date Gabby Dee MD [address] [place] [address] PCP - General Family Medicine 12/23/22 African Studies Professor Relationship Specialty Start Date End Date Gabby Dee MD [address] [place] [address] PCP - General Family Medicine 12/23/22 INFORMATION SOURCE (unrecogn ized section and content) DATE CREATED AUTHOR 05/16/2022 [facility] DATE CREATED AUTHOR AUTHOR'S ORGANIZ ATION 06/18/2022 [facility] DATE CREATED AUTHOR AUTHOR'S ORGANIZ ATION 06/21/[address] [facility] DATE CREATED AUTHOR AUTHOR'S ORGANIZ ATION 12/31/2023 [facility] EPIC REASON FOR VISIT [...] BE BASED ON THE PRIMARY CLINICAL RECORDS. [facility]. provides no warranty or guarantee of the accuracy or completeness of information in this document.
[2024-12-05 09:24] LABS: Alanine Aminotransferase 29 U/L (14-59); Albumin Globulin Ratio 1.1; Albumin Level 3.8 g/dL (3.4-5.0); Alkaline Phosphatase 89 U/L (46-116); Anion Gap 12.1; Aspartate Amino Transferase 20 U/L (15-37); Blood Urea Nitrogen 19.0 mg/dL (7.0-18.0); Calcium 8.9 mg/dL (8.5-10.1); Carbon Dioxide 27.8 mmol/L (21.0-32.0); Chloride 105 mmol/L (98-107); Cholesterol 274 mg/dL (<=200); Estimated GFR (African America >60 (>=60 mL/min/1.73m^2); Estimated GFR (Non-African Ame >60 (>=60 mL/min/1.73m^2); Globulin 3.6 g/dL; Glucose 117 mg/dL (74-106); HDL Cholesterol 40 mg/dL (40-60); Potassium 3.9 mmol/L (3.5-5.1); Sodium 141 mmol/L (136-145); Total Protein 7.4 g/dL (6.4-8.2); Triglycerides 172 mg/dL (<=150); VLDL CHOLESTEROL 34.4 mg/dL
== END 2024-12-05 08:22 | disposition home or self-care (01) ==
LOC: LAB 08:25
PROVIDERS: PCP Family Medicine; Visit Provider Family Medicine
DX: E78.5 Hyperlipidemia, unspecified (principal); R73.09 Other abnormal glucose
CPT/HCPCS: 36415; 80053; 80061; 83036

== ENCOUNTER 2024-12-12 07:02 | Outpatient (OUT) | payer BC, SELFPAY ==
--- OUTSIDE RECORDS SUMMARY | 2023-12-29 15:11 | XMS_ITS ---
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 Name Role Phone DRU ANDERSON Attending Unavailable PROBLEMS No Problem Records Found PROCEDURES No Procedure Records Found RESULTS No Result Records Found ALLERGIES No Allergies Records Found ENCOUNTERS ADMIT/DISCHARGE ACCOUNT NUMBER ADMITTING ENCOUNTER CLASS LOCATION SOURCE 12/29/2023/ 4 [id number] Ambulatory Building:[facility] [employer] ENCOUNTER GUARANTOR PAYER SUBSCRIBER SOURCE 12/29/2023 [place]: [place] [address]Kvw: (HP) [phone] (WP) Primary Insurance:[facility] licy Number: [id number] ctive Date:2022-03-16 THERESA ALVAREZOB: [id number] [place] [address] [facility] [employer]
--- NOTE | 2024-12-12 | NM_ITS ---
Patient Name: THERESA JOSHUA MR#: [id number] : 1970 Exam Date: 12/12/2024 Ordering Doctor: DR GABBY DAO . RADIOLOGY REPORT PROCEDURE: NM LISSETTE PERF SPECT REST STR COMPARISON: None. INDICATIONS: V-TACH, SUPRAVENTRICULAR TACHYCARDIA, UNSPECIFIED TECHNIQUE: Exam Description: Stress/Rest one day protocol gated SPECT Rest Imagin.6 mCi Tc-99m Cardiolite IV on 12/12/2024 Stress Imaging 31.5 mCi Tc-99m Cardiolite IV on 12/12/2024 Exercise Protocol: Beck Heart Rate (bpm): Rest: 65 Max: 166 PMHR: 100 Blood Pressure: Rest: 138/78 Max: 210/98 Exercise Time: Minutes: 9 Seconds: 35 Stage Reached: Stage: 4 Mets 11.7 Symptoms: Rest and peak stress ECG findings were pending and the EKG portion of the study was pending per attending physician [facility] . For more details please see separate cardiac stress test report. FINDINGS: QUALITY OF STUDY: Good PERFUSION DEFECT: None LOCATION: SIZE: SEVERITY: TYPE: WALL MOTION: Normal LV SIZE: LV EDV 77 mL. TID / TCD: 1.0 LVEF: Calculated EF 70%. SUMMARY: Normal myocardial perfusion imaging study CONCLUSION: Normal nuclear myocardial perfusion stress test without evidence of ischemia or infarction Normal left ventricle systolic function, ejection fraction 70% No transient ischemic dilatation, TID score 1.0 EKG portion of stress test is reported separately Dictated by: Carole Osullivan MD on 12/12/2024 at 18:40 Approved by: Carole Osullivan MD on 12/12/2024 at 18:43
--- NOTE | 2024-12-12 07:02 | CA_ITS ---
Patient Name: THERESA JOSHUA MR#: [id number] : 1970 Exam Date: 12/12/2024 Ordering Doctor: DR GABBY DAO . ECHOCARDIOGRAM REPORT PROCEDURE: CA ECHO DOPPLER COMPLETE INDICATIONS: Vtach, SVT COMPARISON: None. DESCRIPTION: COMPLETE ECHOCARDIOGRAM Real-time transthoracic echocardiography with 2D, M-mode, spectral and color flow Doppler performed. QUALITY: Technical quality was good. LEFT VENTRICLE: Normal chamber size. Mildly thickened septal wall. Global left ventricular systolic function is normal. LV EF: Estimated left ventricular ejection fraction is 55-60%. DIASTOLIC: Diastolic function is indeterminate. ATRIAL SEPTUM: LEFT ATRIUM: Mild dilatation. RIGHT ATRIUM: Normal chamber size. RIGHT VENTRICLE: Normal chamber size. Normal right ventricular systolic function. TRICUSPID VALVE: Normal mobility and thickness. No stenosis with trivial regurgitation. No evidence of pulmonary hypertension. RVSP 32 mmHg MITRAL VALVE: Normal mobility and thickness. No evidence of mitral valve stenosis. There is no mitral annular calcification. Trivial mitral regurgitation. AORTIC VALVE: Normal trileaflet appearance. No visible sclerosis. Normal leaflet mobility. No evidence of aortic valve stenosis. No aortic regurgitation. AORTIC ROOT: Normal diameter and appearance, measuring 2.7 cm. The ascending aorta is normal in size measuring 2.7 cm. PULMONIC VALVE: Normal thickness and mobility. No stenosis. Trivial regurgitation. PERICARDIUM: No evidence of pericardial effusion. IVC: Collapses with inspiration. Normal size. PLEURA: CONCLUSION: 1. Normal ventricular size and systolic function. Estimated LVEF is 55 to 60%. 2. Mild left atrial dilatation. 3. No significant valvular dysfunction. 4. Normal right-sided pressures. Adult Echocardiography Procedure Report Left Ventricle LVEDD (3.7 - 5.6 cm): 4.04 cm LVESD (2.2 - 4.0 cm): 2.71 cm LVIVS thickness (0.6 - 1.2 cm): 1.25 cm LVPW thickness (0.5 - 1.0 cm): 0.92 cm e': 0.11 m/s E - e': 5.65 LVOT Max Gradient: 3.12 mm[Hg] LVOT Area (cm2): 0.88 m/s Peak Velocity (LVOT): 0.88 m/s Mean Velocity (LVOT): 0.63 m/s LVOT Diameter 2.01 cm Left Ventricular Ejection Fraction: 55-60 % Left Atrium LA Volume Index (2D A2C): 27.14 ml/m2 Left Atrium Systolic Dimension: 3.72 cm Mitral Valve MV E to A Ratio: 0.87 Mitral Valve A-Wave Peak Velocity: 0.74 m/s Mitral Valve E-Wave Peak Velocity: 0.65 m/s Right Ventricle RV Internal Diastolic Dimension: 3.17 cm Aorta AO Root Diam: 2.72 cm Ascending Ao Diam: 2.74 cm Aortic Valve AoV Area (Peak Shadi): 2.38 cm2, 2.38 cm2 AoV Area (VTI): 2.45 cm2, 2.45 cm2 Peak Velocity(Antegrade Flow): 1.17 m/s Peak Gradient(Antegrade Flow): 5.47 mm[Hg] Mean Velocity(Antegrade Flow): 0.81 m/s Mean Gradient(Antegrade Flow): 2.99 mm[Hg] Velocity Time Integral: 25.17 cm Tricuspid Valve Peak Velocity (Regurgitant Flow): 2.28 m/s, 2.70 m/s, 2.14 m/s Pulmonic Valve Mean Gradient: 2.72 mm[Hg], 2.99 mm[Hg] Mean Velocity: 0.79 m/s, 0.83 m/s Peak Velocity: 1.14 m/s Peak Gradient: 4.61 mm[Hg], 5.90 mm[Hg] Right Atrium Right Atrium Systolic Pressure: 36.64 ml, 36.64 ml Dictated by: Abad Tai M.D. on 12/12/2024 at 21:27 Approved by: Abad Tai M.D. on 12/12/2024 at 21:31
--- NOTE | 2024-12-12 11:40 | PC.NURSE ---
Nursing Note Cardiac Stress Test Reviewed: Medication, allergies and patient history reviewed. Stress Test: [x ] Patient tolerated stress test well. [ ] Patient unable to tolerate walking on treadmill. Switched to Lexiscan stress test. [x ] No chest pain noted per patient [ ] Chest pain that resolved prior to leaving stress lab. [ ] No dyspnea noted. [x ] Dyspnea that resolved prior to leaving stress lab. [x ] Patient left stress lab asymptomatic and hemodynamically stable. [ ] Patient taken to the Emergency Room due to non-resolving symptoms following stress test. [x ] Patient achieved target heart rate. [ ] Patient unable to achieve target heart rate. [ ] Aminophylline administered as reversal agent to Lexiscan (Regadenoson). [ ] Nitro administered. Nursing Comments:
--- NOTE | 2024-12-12 14:16 | PM.STRESS ---
Stress Test Stress Test Allergies Allergy/AdvReac Type Severity Reaction Status Date / Time No Known Drug Allergies Allergy Verified 03/11/23 13:16 Requesting physician: Rod Dee Procedure: Treadmill cardiolyte stress test General Information: Reason for Stress Test: [Palpitations] Cardiac History and Risk Factors: [Dyslipidemia] Resting 12 - Lead Electrocardiogram: Sinus rhythm Premature ventricular contractions in a couplet Otherwise normal ECG Stress Test: Protocol: [Beck protocol; the patient exercised for 9:35 minutes, reaching stage 4 of the protocol and achieving 11.7 METs. Resting HR: 65 bpm, peak HR: 166 bpm and 100% of PMHR%. Resting BP: 138/78 mmHg, peak BP: 210/98 mmHg. The test was terminated due to achievement of target HR] Exercise Capacity: [Good] Blood Pressure Response: [Normal resting BP, normal BP response to exercise] Rhythm: [Sinus, premature supraventricular contractions] ST - Response: [No significant ST T wave changes] Patient Response: [No chest pain] Interpretation: 1. No ischemic EKG changes on treadmill exercise stress test. 2. Normal HR and BP response to exercise. 3. Douglass Treadmill Score 9.4. Estimated 1-Year Mortality: 0.5-0.6 %. Risk Category:Low Risk. Angiography:Usually not indicated. 4. Nuclear images to be read, interpreted, and reported separately.
== END 2024-12-12 07:03 | disposition home or self-care (01) ==
LOC: CARD 07:02
PROVIDERS: PCP Family Medicine; Visit Provider Family Medicine
DX: I47.10 Supraventricular tachycardia, unspecified (principal); I47.20 Ventricular tachycardia, unspecified
CPT/HCPCS: 78452; 93017; 93306; A9500

== ENCOUNTER 2025-01-03 12:09 | Outpatient (REF) | payer BC, SELFPAY ==
--- OUTSIDE RECORDS SUMMARY | 2023-08-21 04:30 | XMS_ITS ---
Author Organization [facility] Address [address] [place] [address] Care Team Providers Care Cost Accounting Manager Name Role Phone LeilaRod Primary Care Provider Roberto doe Reese Busch Unavailable [phone] Kayla Randle Unavailable Allergies No Known Allergies REASON FOR VISIT Cervical postop recheck Medications Medication SIG (Take, Route, Frequency, Duration) Notes Start Date End Date Status Flexeril 10 mg 1 tab(s) orally 3 times a day 07/03/2023ctiveFlexeril 10 mg1 tab(s) orally 3 times a day06/11/2023ctive Flexeril 10 mg1 tab(s) orally 3 times a day08/21/2023ctiveFlexeril 10 mg1 tab(s) orally 3 times a day prn muscle qpxglw5305/15/2023ctivegabapentinActive IndocinActivesimvastatinActivedesvenlafaxineActiveRobaxinActive Social History Tobacco Use: Social History Observation Description Date Details (start date - stop date) Never Smoker NA - NA Smoking History Question Answer Notes Smoking Status NonSmoker Problems Problem Type SNOMED Code ICD Code Onset Dates Problem Status W/U Status Risk Notes Problem 25099819 Intractable head ache, unspecified chronicity pattern, unspecified headache type (R51.9) Activeconfirmed Encounters Encounter Location Date Provider Diagnosis [facility] [address] [place] [address] [address] [place] [address] 08/21/2023 [facility] Aftercare following surgery of the musculoskeletal system Z47.89 ; Intractable headache, unspecified chronicity pattern, unspecified headache type R51.9 and Arthrodesis status Z98.1 Assessments Encounter Date Diagnosis (ICD Code) Assessment Notes Treatment Notes Treatment Clinical Notes Section Notes 08/21/2023 Aftercare following surgery of the musculoskeletal system (ICD-10 - Z47.89) 1. 3 months s/p C3-6 ACDF08/21/2023Intractable headache, unspecified chronicity pattern, unspecified headache type (ICD-10 - R51.9)1. 3 months s/p C3-6 ACDF 08/21/2023rthrodesis status (ICD-10 - Z98.1)1. 3 months s/p C3-6 ACDF08/21/2023 Other Plan established by Dr. Shrestha. The patient has some muscle spasms in her paraspinal cervical musculature that are bothering her postop. We discussed some gentle massage techniques that she can doand I have refilled her Flexeril 10 mg [...] 1 tab(s) orally 3 times a day Treatment Notes Assessment Notes Other Plan established [...] Order Date Cervical spine 2 v - [id number] 08/21/2023 Next Appt Details Follow Up: 3 Months, Reason: Progress Notes * IDA JOSHUAEDOB:[birth year] (54 yo F)Acc No.[id number]:08/21/2023 Patient:?THERESA JOSHUA :?Kayla Gonzalez, PADOB:1970???Age:53 Y???Sex:FemaleDate:08/21/2023hone:[phone]:[address] [place] [address], [id number]:Rod Dee Subjective: * Chief Complaints: * 1 . Cervical postop recheck. * HPI: ???General Follow Up Information:? Dictated by Kayla Gonzalez PA-C Patient returns [...] neck paraspinally at the base of her skull.She states that her radicular symptoms are resolved to her left upper extremity. Patient states that she is also starting to notice that her low back is hurting more. She had previously gone to the pain management clinic in [place] and gotten an injection that has lasted [...] N .K.D.A. Objective: * Vitals: * Examination: ???General examination: ???On examination, the patient is well-developed, well-nourished, well-groomed, alert and oriented x3, normal mood. Patient walks with steady gait. Limited cervical ROM. Cervical paraspinal tenderness bilaterally at the base of the skull, nontender over the cervical spine midline. 5/5 muscle strength bilateral upper extremities. Sensory intact upper extremities. ???X-ray Imaging Studies: ???2V X-rays done of cervical spine and office today and reviewed interpreted by myself showing, plate, and screws from C3-6. No complications seen with the hardware. No signs of instability or fractures. . ???MRI Imaging Studies: ? Assessment: * Assessment: 1.?Aftercare following surgery of the musculoskeletal system - Z47.89 (Primary)?? 2.?Intractable headache, unspecified chronicity pattern, unspecified headache type - R51.9 ??3.?Arthrodesis status - Z98.1???1. 3 months s/p C3-6 ACDF. Plan: * Treatment: Start Flexeril tablet, 10 mg, 1 tab(s), orally, 3 times a day, 50.?Imaging: Cervical spine 2 v - [id number].?Others? Notes: Plan established by Dr. Shrestha. The patient has some muscle spasms in her paraspinal cervical musculature that are bothering her postop. We discussed some gentle massage techniques that shecan do and I have refilled her Flexeril 10 mg that she will try to only take at night if needed. Wewill see her back in 3 months with [...] hesitate to contact Dr. Shrestha. Best regards, ?? * Follow Up: 3 Months Forms: * Images: * Electronic signature of Kayla Randle PA-C on 01/03/2025 at 09:00 AM EDTSign off status: Pending * Provider: SANAZ Ward Date: 0 08/21/2023 Generated for Printing/Faxing/eTransmitting on:?01/03/2025 09:00 AM EDT History and Physical Notes * HPI (History of Present Illness) CategorySub-CategoryDetailNotesCategory NotesGeneral Follow Up Information Dictated by Kayla Gonzalez [...] neck paraspinally at the base of her skull.She states that her radicular symptoms are resolved to her left upper extremity. Patient states that she is also starting to notice that her low back is hurting more. She had previously gone to the pain management clinic in [place] and gotten an injection that has lasted her approximately 4 years until now. She was getting radicular symptoms going down her right leg prior to this injection that resolved with this issue. Examination CategorySub-CategoryDetailNotesCategory NotesGeneral examinationOn examination, the patient is well-developed, well-nourished, well-groomed, alert and oriented x3,normal mood. Patient walks with steady gait. Limited cervical ROM. Cervical paraspinal tenderness bilaterally at the base of the skull, nontender over the cervical spine midline. 5/5 muscle strength bilateral upper extremities. Sensory intact upper extremities.X-ray Imaging Studies 2V X-rays done of cervical spine and office today and reviewed interpreted by myself showing, plate, and screws from C3-6. No complications seen with the hardware. No signs of instability or fractures. MRI Imaging Studies
--- OUTSIDE RECORDS SUMMARY | 2025-01-03 09:00 | XMS_ITS | Encounter Summary ---
Author Organization [facility] Address [address] [place] [address] Care Team Providers Care Willower Name Role Phone Rod Dee MD Primary Care Provider [phone] Reason for Visit * ReasonCommentsGynecologic Exam Encounter Details DateTypeDepartmentCare Team (Latest Contact Info)Kdasukrluvp32/21/2025 9:00 AM EDTOffice Visit [facility] [address] [place] [address] Willem Donato DO [address] [place], [facility]11 Well woman exam with routine gynecological exam; Encounter for screening mammogram for malignant neoplasm of breast Social History Tobacco UseTypesPacks/DayYears UsedDateSmoking Tobacco: NeverAlcohol UseStandard Drinks/WeekCommentsYes0 (1 standard drink = 0.6 oz pure alcohol)Alcohol: 1 or 2 drinks on a typical day/monthly or less Caffeine: 2-3 cups/dayCommentsNo Sex and Gender InformationValueDate RecordedSex Assigned at BirthFemale 09/03/2022 11:32 AM EDTLegal ZffAmkiuq03/15/2023 7:20 PM EDTGender Identity Pgcdgw1809/03/2022 11:32 AM EDTSexual OrientationNot on filedocumented as of this encounter Last Filed Vital Signs Vital SignReadingTime TakenCommentsBlood Dqelvxtd835/801 9:25 AM EDT Pulse--Temperature--Respiratory Rate--Oxygen Saturation--Inhaled Oxygen Concentration--Qionqd93.5 kg (193 lb)01/03/2025 9:25 AM AQDDxzwdn853.2 cm (5' 7 )01/03/2025 9:25 AM EDTBody Mass Index30.231 9:25 AM EDTdocumented in this encounter Plan of Treatment DateTypeDepartmentCare Team (Latest Contact Info)Stoohjhuvfo20/29/2026 9:00 AM EDTProcedure Visit [facility] [address] [place] [id number] Willem Donato DO [address] [place] [address] NameTypePriorityAssociated DiagnosesOrder ScheduleBilateral screening mammogram ImagingRoutine Encounter for screening mammogram for malignant neoplasm of breast Expected: 01/03/2025 (Approximate), Expires: 03/05/2026THIN PREP TIS PAP AND HR HPV DNAPathology and CytologyRoutine Well woman exam with routine gynecological exam Ordered: 01/03/2025documented as of this encounter Visit Diagnoses Diagnosis Well woman exam with routine gynecological exam Routine gynecological examination Encounter for screening mammogram for malignant neoplasm of breast documented in this encounter Care Teams Team MemberRelationshipSpecialtyStart DateEnd Rod Dee MD PCP - GeneralFamily Kntdslzw76/10/23documented as of this encounter
--- OUTSIDE RECORDS SUMMARY | 2025-01-03 12:13 | XMS_ITS | Patient Health Record ---
Author Organization [facility] Address [address] [place] [address] Care Team Providers Care Auditing Clerk Name Role Phone Rod Dee Primary Care Provider Unavailbrook Reese Heath Unavailable [phone] Kayla Randle Unavailable [phone] Reason For Referral No Information Medications Medication SIG (Take, Route, Frequency, Duration) Notes Start Date End Date Status Robaxin ActiveFlexeril 10 mg1 tab(s) orally 3 times a day08/21/2023ctivesimvastatin ActivegabapentinActiveFlexeril 10 mg1 tab(s) orally 3 times a day prn muscle yjuppu0505/15/2023ctivedesvenlafaxineActiveIndocinActiveFlexeril 10 mg1 tab(s) orally 3 times a day07/03/2023ctiveFlexeril 10 mg1 tab(s) orally 3 times a day 06/11/2023ctive Social History Tobacco Use: Social History Observation Description Date Details (start date - stop date) Never Smoker NA - NA Smoking History Question Answer Notes Smoking Status NonSmoker Problems Problem Type SNOMED Code ICD Code Onset Dates Problem Status W/U Status Risk Notes Problem 10230402 Cervical spinal stenosis (M4 8.02) KqsjurnsabqwrcdWjlkjzp860220053Dtkwuenjghv status (Z98.1)ActiveconfirmedProblem Muscle spasm (66138189)Muscle spasm (M62.838)JpqothchgxmrfgySxopkdt63698395 Radiculopathy, cervical region (M54.12)AfhbyjyoftuttstQjefimx548893720Meskfcj, unspecified (E66.9)CdwrryjmdygjpznFclraju28402561Dldba cervical disc degeneration at C4-C5 level (M50.321)UmqkpdhrlgcdfngFdifhqp55797834Ajujw cervical disc degeneration at C5-C6 level (M50.322)ActiveconfirmedProblem 87783630Zfdya cervical disc degeneration at C6-C7 level (M50.323)Activeconfirmed Fklrowd92258558Bpson cervical disc degeneration, high cervical region (M50.31) FfajndpcvttqwtbBsyfqwo533878611Eblsemtdp for other orthopedic aftercare (Z47.89) ZerwnkwpweiehckIhfnjmw449170614Mycw mass index [BMI] 30.0-30.9, adult (Z68.30) ZcrdkbpftqmkjllStvtukx29842018Gvcigucothg headache, unspecified chronicity pattern, unspecified headache type (R51.9)Activeconfirmed Vital Signs Height 5 ft 7 in in 06/03/2024 Pubytc466 lbs06/03/2024BMI30.54006/03/2024 Encounters Encounter Location Date Provider Diagnosis [address] [address] 06/03/2024 [facility] Arthrodesis status Z98.1 and Encounter for other orthopedic aftercare Z47.89 Assessments Encounter Date Diagnosis (ICD Code) Assessment Notes Treatment Notes Treatment Clinical Notes Section Notes 06/03/2024 Arthrodesis status (ICD-10 - Z98 .1) 1. 1 year s/p C3-6 ACDF06/03/2024Encounter for other orthopedic aftercare (ICD- 10 - Z47.89)1. 1 year s/p C3-6 ACDF06/03/2024Other Patient is doing well 1 year postoperatively from a C3-6 ACDF. We can see her back on an as-needed basis. The patient is very much in agreement with the treatment and/or diagnostic plan set forth andall questions were answered to the patient's satisfaction. Thanks once again. If we can be of further service to your patients with disorders of the spine, cervical, thoracic, or lumbar, please do not hesitate to contact Dr. Shrestha. Best regards, 1. 1 year s/p C3-6 ACDF Plan Of Treatment Pending Test Test Name Order Date Cervical spine,ap,lat,flex,ext - 48846 0 03/31/2023 Cervical spine,ap,lat,flex,ext - 88185 0 06/03/2024 Cervical spine 2 v - 03258 07/03/2023 Cervical spine 2 v - 57732 12/04/2023 Cervical spine 2 v - 94121 08/21/2023 [place] [facility] Cervical Collar OTS 05/15/2023 Future Test Test Name Order Date Chest 2 views - 03852 04/15/2023 CBC 04/15/2023 PT/PTT 04/15/2023 BMP 04/15/2023 MRSA (Bilateral Nares) PCR 04/15/2023 EKG 04/15/2023 Type and Cross Blood 2 units 04/15/2023 Insurance Providers Payer Name Payer Address Payer Phone Subscriber Number Group Number Insured Name Patient Relationship to Insured Coverage Start Date Coverage End Date Kamaljit [address] [place] [address] [id number] KEVON JOSHUAelf - patient is the insured Medical (General) History Medical History History ICD Code Have you been seen by a dentist in the l ast year?: Yes Latex Allergy: YesAsthmaHealthcare worker: YesSurgical History Surgery Date(Month/Year) C3-6 ACDF 05/2023 Cyst in foot
--- OUTSIDE RECORDS SUMMARY | 2025-01-03 12:13 | XMS_ITS | Clinical Summary ---
Author Organization [facility] Address [address] [place] [address] Care Team Providers Care Supervisor Computer Operations Name Role Phone Rod Dee MD Primary Care Provider [phone] Allergies No known active allergies Medications MedicationSigDispense QuantityRefillsLast FilledStart DateEnd DateStatus rosuvastatin (Crestor) 5 mg tablet Take 1 tablet by mouth in the morning.5Active aspirin 81 mg EC tablet Take 81 mg by mouth in the morning.5Active Active Problems ProblemNoted DateDiagnosed DateAcute jhxaimgfw52/01/2025ervical radiculopathy 12/14/2024Degeneration of cervical intervertebral disc12/14/2024Hyperlipidemia 12/14/2024Low back pain12/14/2024Plantar fascial /01/2025Sciatica, right side12/14/20249058Fhabq52/01/2025Statin not lrhxuzgwt08/01/2025Unspecified mononeuropathy of right lower limb12/14/2024Intractable /30/2025 Gxnpomhent26/02/2024 Encounters DateTypeDepartmentCare GoysEgehwdyjcth32/01/2025 2:40 PM EDTOffice Visit [facility] [address] [place] [address] Ravi Allen MD Paroxysmal supraventricular tachycardia (Primary Dx)12/13/2024Orders Only [facility] [address] [place] [address] Magui Zarate MD from Last 3 Months Family History RelationNameStatusCommentsBrotherAliveFatherAliveMotherAlive Social History Tobacco UseTypesPacks/DayYears UsedDateSmoking Tobacco: NeverSmokeless Tobacco: Never Tobacco Cessation:Counseling Given: Not Answered Alcohol UseStandard Drinks/WeekCommentsYes0 (1 standard drink = 0.6 oz pure alcohol)occasionalCommentsUnknownSex and Gender InformationValueDate RecordedSex Assigned at PbmvfIqtied42/26/2025 9:04 AM EDTLegal SexFemale 12/08/2024 4:45 PM EDTGender WlnodtjyZmfpux90/26/2025 9:04 AM EDTSexual OrientationHeterosexual or Aobprcma72/26/2025 9:04 AM EDT Last Filed Vital Signs Vital SignReadingTime TakenCommentsBlood Xoigyhul427/7710 2:43 PM EDT Setfr609912/14/2024 2:43 PM EDTTemperature--Respiratory Rate--Oxygen Wyapbqerde73% 12/14/2024 2:43 PM EDTInhaled Oxygen Concentration--Dylqio72.5 kg (195 lb) 12/14/2024 2:43 PM EDTHeight--Body Mass Index-- Plan of Treatment DateTypeDepartmentCare Team (Latest Contact Info)Vljbfiiczjh74/10/2025 3:20 PM ESTOffice Visit [facility] [address] [place] [address] Ravi Allen MD [address] [place] [address] Health MaintenanceDue DateLast DoneCommentsCT Dyptjdjcerju10/10/1971Colonoscopy 1970Colorectal Cancer Dckunatwb35/10/1971FIT-DNA1970FIT1970 FOBT1970 7728Csrgpdmnmyoxi44/10/1971Depression Qseocxnxq30/10/1983Hepatitis B Vaccines (1 of 3 - 19+ 3-dose series)1989Adult Yguwkjp4904/25/1992HPV/Cotest 04/25/20007104Kamihmnfs40/10/2011Zoster Vaccines (1 of 2)2020OVID-19 Vaccine (3 - season), 04/02/2020Influenza Vaccine (#1) , 01/18/2021, 01/04/2020Cervical Cancer Evmgyount56/15/2027 Pap SmearHIB VaccinesAged OutNo longer eligible based on patient's age to complete this topicHPV VaccinesAged OutNo longer eligible based on patient's age to complete this topicIPV VaccinesAged OutNo longer eligible based on patient's age to complete this topicMeningococcal B VaccineAged OutNo longer eligible based on patient's age to complete this topicMeningococcal VaccineAged OutNo longer eligible based on patient's age to complete this topic Pneumococcal Vaccine: Pediatrics (0 to 5 Years) and At-Risk Patients (6 to 64 Years)Aged OutNo longer eligible based on patient's age to complete this topic Rotavirus VaccinesAged OutNo longer eligible based on patient's age to complete this topic Procedures Procedure NamePriorityDate/TimeAssociated DiagnosisCommentsTREADMILL STRESS MYOCARDIAL PERFUSION MFZZCVAGkpywrz49/29/2025 9:33 AM EDTCOMPLETE TRANSTHORACIC ECHO (TTE) W/WO IMAGING AGENT, STRAIN, 3D, BUBBLE IBPXAKkcylzq29/29/2025 9:32 AM EDTfrom Last 3 Months Results * Treadmill Stress Myocardial Perfusion Imaging (12/12/2024 9:33 AM EDT) Anatomical RegionLateralityModalityOther Narrative Authorizing ProviderResult TypeResult StatusHistorical Provider MDCV STRESS PROCEDURESFinal Result * Complete Echo (TTE) w/wo Imaging Agent, Strain, 3D, Bubble Study (12/12/2024 9:32 AM EDT)Anatomical RegionLateralityModalityUltrasound Narrative Authorizing ProviderResult TypeResult StatusHistorical Provider MDCV ECHO PROCEDURESFinal Result from Last 3 Months Insurance Care Teams Team MemberRelationshipSpecialtyStart DateEnd Rod Dee MD [address] [place] [address] PCP - GeneralFamily Nammzmca78/1/25
--- OUTSIDE RECORDS SUMMARY | 2025-01-03 12:13 | XMS_ITS | Encounter Summary ---
Author Organization [facility] Address [address] [place] [address] Care Team Providers Care White Work Cleaner Name Role Phone Rod Dee MD Primary Care Provider +- Encounter Details DateTypeDepartmentCare Team (Latest Contact Info)Wclwfhpgyqh20/21/2025Travel Social History Tobacco UseTypesPacks/DayYears UsedDateSmoking Tobacco: NeverAlcohol UseStandard Drinks/WeekCommentsYes0 (1 standard drink = 0.6 oz pure alcohol)Alcohol: 1 or 2 drinks on a typical day/monthly or less Caffeine: 2-3 cups/dayCommentsNo Sex and Gender InformationValueDate RecordedSex Assigned at BirthFemale 09/03/2022 11:32 AM EDTLegal CsnAmsrow79/15/2023 7:20 PM EDTGender Identity Ucjvkb1809/03/2022 11:32 AM EDTSexual OrientationNot on filedocumented as of this encounter Plan of Treatment DateTypeDepartmentCare Team (Latest Contact Info)Gihhneceipz19/29/2026 9:00 AM EDTProcedure Visit [facility] [address] [place] [address] Willem Donato DO [address] [place] [address] documented as of this encounter Visit Diagnoses Not on filedocumented in this encounter Care Teams Team MemberRelationshipSpecialtyStart DateEnd Date Rod Dee MD PCP - GeneralFamily Nrjhcbwk39/10/23documented as of this encounter
--- OUTSIDE RECORDS SUMMARY | 2025-01-03 12:13 | XMS_ITS | Clinical Summary ---
Author Organization [facility] Address [address] [place] [address] Care Team Providers Care Branch Account Manager Name Role Phone Rod Dee MD Primary Care Provider [phone] Allergies No known active allergies Medications No known medications Active Problems ProblemNoted DateDiagnosed IqbcPpfrkzkmwi62/02/2024 Encounters DateTypeDepartmentCare JwrfUdokxocsbch63/21/2025 9:00 AM EDTOffice Visit [facility] [address] [place] [phone] Willem Donato DO Well woman exam with routine gynecological exam; Encounter for screening mammogram for malignant neoplasm of kcqfok0501/03/2025 Bamboo flowsheet [facility] [address] [place] [address] Willem Donato DO 01/03/2025Travelfrom Last 3 Months Family History Medical HistoryRelationNameCommentsDiabetesMaternal GrandmotherHypertension Maternal GrandmotherOvarian cancerMaternal GrandmotherHeart diseasePaternal GrandfatherDiabetesPaternal GrandmotherHeart diseasePaternal Grandmother HypertensionPaternal GrandmotherRelationNameStatusCommentsFatherAliveMaternal GrandfatherDeceasedMaternal GrandmotherDeceasedMotherAlivePaternal Grandfather DeceasedPaternal GrandmotherDeceased Social History Tobacco UseTypesPacks/DayYears UsedDateSmoking Tobacco: Never Tobacco Cessation:Counseling Given: Not Answered Alcohol UseStandard Drinks/WeekCommentsYes0 (1 standard drink = 0.6 oz pure alcohol)Alcohol: 1 or 2 drinks on a typical day/monthly or less Caffeine: 2-3 cups/dayCommentsNoSex and Gender InformationValueDate RecordedSex Assigned at LuidrHwtoie95/21/2023 11:32 AM EDTLegal BkcZdxnwc57/15/2023 7:20 PM EDTGender YnytlosbQnyjmd23/21/2023 11:32 AM EDTSexual OrientationNot on file Last Filed Vital Signs Vital SignReadingTime TakenCommentsBlood Tlobgmin913/801 9:25 AM EDT Pulse--Temperature--Respiratory Rate--Oxygen Saturation--Inhaled Oxygen Concentration--Vvixws15.5 kg (193 lb)01/03/2025 9:25 AM SOJPfvted099.2 cm (5' 7 )01/03/2025 9:25 AM EDTBody Mass Index30.231 9:25 AM EDT Plan of Treatment DateTypeDepartmentCare Team (Latest Contact Info)Bzjnlsefvay16/29/2026 9:00 AM EDTProcedure Visit [facility] [address] [place] [address] Willem Donato, [address] [place] [address] Health MaintenanceDue DateLast DoneCommentsCT Xeaewrxzirik73/10/1971FIT-DNA 1970FIT1970FOBT1970 3828Mxsxunesxmher17/10/1971Influenza Vaccine (#1), 01/18/2021, 01/04/20204823Nzelwchyb15 HPV/Jammdz7905/27/2026Cervical Cancer Lcnqdgrzs17/15/2027Pap Smear12/28/2026 12/29/2023, 05/27/20210312Gjihalxlpyt61olorectal Cancer Screening 03/27/2031 Procedures Procedure NamePriorityDate/TimeAssociated DiagnosisCommentsPAP SMEARRoutine 12/29/2023 12:00 AM EDTMM TOMOSYNTHESIS SCREENING BI11/18/2023 2:12 PM EDT from Last 3 Months or Most Recently Relevant to Health Maintenance Results * Pap Smear (12/29/2023 12:00 AM EDT)Specimen (Source)Anatomical Location / LateralityCollection Method / VolumeCollection TimeReceived TimeSwabCervical swab / Unknown Narrative Authorizing ProviderResult TypeResult StatusFazio Nurse Noms Bcp ObLAB CYTOLOGY ORDERABLESFinal ResultPerforming OrganizationAddressCity/State/ZIP CodePhone Number EXTERNAL LAB * MM TOMOSYNTHESIS SCREENING BI (11/18/2023 2:12 PM EDT)Anatomical Region LateralityModalityOtherSpecimen (Source)Anatomical Location / Laterality Collection Method / VolumeCollection TimeReceived Time11/18/2023 2:12 PM EDT Narrative 11/18/2023 2:13 PM EDT [facility] ?[address] ? [place] [address] ? Mammography Report ? Signed ? Patient: REESMAN,THERESA J ?MR#: [id number] ?? : 1970 ?Acct:[id number] ?? Age/Sex: 53 / F ?ADM Date: 11/13/23 ?? Loc: MAMMO ? Attending Dr: Willem Donato D.O. ? Ordering Physician: Willem Donato D.O. ?Results: ? Date of Service: 11/13/23 ?Follow Up: ? Procedure(s): MM tomosynthesis screening BI ?? Accession Number(s): [id number] ? cc: Willem Donato D.O.; Rod Dee M.D. ? Patient Name: ? THERESA JOSHUA ? MR#: [id number] ? : 1970 ? Exam Date: 11/13/2023 ?? Ordering Doctor: DR Willem Donato . ? RADIOLOGY REPORT ? PROCEDURE: ? MM TOMOSYNTHESIS SCREENING BI ? COMPARISON: ? MM TOMOSYNTHESIS SCREENING BI, 11/10/2022. ??MG MAMM SCREEN 3D ?? HIEU CAD, 10/28/2021. ??MG MAMM SCREEN 3D HIEU CAD, 10/26/2020. ??MG MAMM HIEU SCRN W ?? CAD DIG, 01/20/2013. ? INDICATIONS: ? Screening ? Calculator Name ? NCI Breast Cancer Risk Assessment Tool ?? 5 Year Breast Cancer Risk ? 1.20% ?? Lifetime Breast Cancer Risk ? 9.40% ?? Personal Breast Cancer ?No ?? Personal Ovarian Cancer ? No ?? Treatments ? None ?? Family Cancers ? Cousin-maternal with breast cancer at age 50; ?? Grandmother-maternal with ovarian cancer at age ??80. ? LOCATION: ? [facility] ? BREAST COMPOSITION: ? There are scattered areas of fibroglandular density. ? FINDINGS: ? DIAGNOSTIC CATEGORY 2--BENIGN FINDING: ? RIGHT BREAST: ??No significant suspicious finding. ??Stable, chronic ?? benign-appearing lymph node posterior upper-outer quadrant. ??No significant ?? change has occurred. ? LEFT BREAST: ??No significant suspicious finding. ??No significant change has ?? occurred. ? RECOMMENDATIONS: ? ROUTINE MAMMOGRAM AND CLINICAL EVALUATION IN 12 MONTHS. ? PLEASE NOTE: ??A NORMAL MAMMOGRAM DOES NOT EXCLUDE THE POSSIBILITY OF BREAST ?? CANCER. ??A CLINICALLY SUSPICIOUS PALPABLE LUMP SHOULD BE BIOPSIED. ? Dictated by: Kan Salas M.D. on 11/18/2023 at 14:08 ? Approved by: Kan Salas M.D. on 11/18/2023 at 14:12 ? Dictated By: ?Kan Salas M.D. ? Signed By: ?11/18/231412 ? DD/ 1412 ? TD/TT: ? Student Affairs Dean: Procedure Note Radiology, Radiologist, MD - 11/18/2023 [place] [address] Mammography Report Signed Patient: THERESA JOSHUA JMR#: [id number] : 1970Acct:[id number] Age/Sex: 53 / FADM Date: 11/13/23 Loc: MAMMO Attending Dr: Willem Donato D.O. Ordering Physician: Willem Donato D.O.Results: Date of Service: 11/13/23Follow Up: Procedure(s): MM tomosynthesis screening BI Accession Number(s): [id number] cc: Willem Donato D.O.; Rod Dee M.D. Patient Name: THERESA JOSHUA MR#: [id number] : 1970 Exam Date: 11/13/2023 Ordering Doctor: DR Willem Donato . RADIOLOGY REPORT PROCEDURE: MM TOMOSYNTHESIS SCREENING BI COMPARISON: MM TOMOSYNTHESIS SCREENING BI, 11/10/2022. MG MAMM JSPUIN5X HIEU CAD, 10/28/2021. MG MAMM SCREEN 3D [...] ovarian cancer at age 80. LOCATION: [facility] BREAST COMPOSITION: There are scattered areas [...] M.D. Signed By:11/18/23 1413 DD/ 1412 TD/TT: Student Affairs Dean: Authorizing ProviderResult TypeResult StatusCorey Kinga DOCLINISYNC IMAGINGFinal Result from Last 3 Months or Most Recently Relevant to Health Maintenance Insurance * Guarantor: Theresa Joshua TypeRelation to PatientDate of BirthPhone Billing AddressPersonal/BweuiqAdrq32/10/1971 [phone] (Work) [address] [phone] Care Teams Team MemberRelationshipSpecialtyStart DateEnd oRd Dee MD PCP - GeneralFamily Dwjwnxfd21/10/23
--- OUTSIDE RECORDS SUMMARY | 2025-01-03 12:13 | XMS_ITS | Patient Health Record ---
Author Organization [facility] in [place] Address [address] [place] [address] Care Team Providers Care Machine Spring Former Name Role Phone Eliot Dee Primary Care Provider Terra Shepherd Unavailable [phone] Allergies No Known Allergies Results Component Value Reference Range Notes COVID-19, Flu A+B IH Reviewed date:08/04/2024 08:28:35 PM Interpretation: Performing Lab: Notes/Report: COVID neg FLU APOSITIVEFLU BnegControlpresentCBC AUTO DIFF Reviewed date:08/04/2024 08:28:34 PM Interpretation: Performing Lab: Notes/Report: [facility] ,White Blood Count4.24.0-11.0 10 3/uLRed Blood Count5.074.20-5.40 10 6/uL Qlniersxef57.712.0-16.0 g/uCQsuptmvfpf61.936.0-48.0 %Mean Corpuscular Ljtrsn43.6 81.0-99.0 fLMean Corpuscular Jtfhqpzcwb88.026.7-34.0 pgMean Corpuscular HGB Conc 33.529.9-35.2 g/dLRed Cell Distribution Width12.511.0-15.0 %Platelet Fitvv673 150-450 10 3/uLMean Platelet Ajelne51.19.5-13.5 fLNeutrophils Percent Auto50.5 43.0-75.0 %Lymphocytes Percent Auto34.620.5-60.0 %Monocytes Percent Auto9.41.7- 12.0 %Eosinophils Percent Auto4.80.9-7.0 %Basophils Percent Auto0.70.2-2.0 % Immature Granulocytes Pct Auto0.00.0-0.5 %Neutrophils Absolute Auto2.11.4-6.5 10 3/uLLymphocytes Absolute Auto1.41.2-3.8 10 3/uLMonocytes Absolute Auto0.40.3-0.8 10 3/uLEosinophils Absolute Auto0.20.0-0.7 10 3/uLBasophils Absolute Auto0.00.0- 0.1 10 3/uLImmature Granulocytes Abs Auto0.000.00-0.03 10 3/uLPerforming Lab:see note - [facility] LBGLYCOHEMOGLOBIN A1C Reviewed date:08/04/2024 08:28:34 PM Interpretation: Performing Lab: Notes/Report: [facility] ,Glycohemoglobin A1C6.24.5-6.2 % ADA RECOMMENDED LIMIT 4.0 - 6.0 ADA THERAPEUTIC TARGET < 7.0 ACTION SUGGESTED > 7.0 Estimated Average Tqiaoly227Acyombjtsm Lab:see note - [facility] LB FREE T3 Reviewed date:11/28/2024 01:23:18 PM Interpretation: Performing Lab: Notes/Report: [facility] ,Free T32.572.18-3.98 pg/mLPerforming Lab:see note - [facility] LB MAGNESIUM Reviewed date:11/28/2024 01:23:18 PM Interpretation: Performing Lab: Notes/Report: [facility] ,Magnesium1.91.8-2.4 mg/dLPerforming Lab:see note - [facility] LBT4 Reviewed date:11/28/2024 01:23:18 PM Interpretation: Performing Lab: Notes/Report: [facility] ,T4 Thyroxine8.404.80-13.90 ug/dLPerforming Lab:see [facility] LBTSH Reviewed date:11/28/2024 01:23:18 PM Interpretation: Performing Lab: Notes/Report: [facility] ,Thyroid Stimulating Hormone1.2850.358-3.740 uIU/mLPerforming Lab:see noteML - [facility] LBCA echo doppler complete Reviewed date:12/13/2024 08:08:42 AM Interpretation: Performing Lab: Notes/Report: Source Facility: [facility]-[address] [place] [address] Cardiology Report Signed Patient: THERESA REYES MR#: [id number] : 1970 Acct:[id number] Age/Sex: 54 / F ADM Date: 12/12/24 Loc: CARD Attending Dr: Gabby Dee M.D. Ordering Physician: Gabby Dee M.D. Date of Service: 12/12/24 Procedure(s): CA echo doppler complete Accession Number(s): [id number] cc: Gabby Dee M.D. Patient Name: THERESA REYES MR#: [id number] : 1970 Exam Date: 12/12/2024 Ordering Doctor: DR GABBY DEE . ECHOCARDIOGRAM REPORT PROCEDURE: CA ECHO DOPPLER COMPLETE INDICATIONS: Vtach, SVT COMPARISON: None. DESCRIPTION: COMPLETE ECHOCARDIOGRAM Real-time transthoracic echocardiography with 2D, M-mode, spectral and color flow Doppler performed. QUALITY: Technical quality was good. LEFT VENTRICLE: Normal chamber size. Mildly thickened septal wall. Global left ventricular systolic function is normal. LV EF: Estimated left ventricular ejection fraction is 55-60%. DIASTOLIC: Diastolic function is indeterminate. ATRIAL SEPTUM: LEFT ATRIUM: Mild dilatation. RIGHT ATRIUM: Normal chamber size. RIGHT VENTRICLE: Normal chamber size. Normal right ventricular systolic function. TRICUSPID VALVE: Normal mobility and thickness. No stenosis with trivial regurgitation. No evidence of pulmonary hypertension. RVSP 32 mmHg MITRAL VALVE: Normal mobility and thickness. No evidence of mitral valve stenosis. There is no mitral annular calcification. Trivial mitral regurgitation. AORTIC VALVE: Normal trileaflet appearance. No visible sclerosis. Normal leaflet mobility. No evidence of aortic valve stenosis. No aortic regurgitation. AORTIC ROOT: Normal diameter and appearance, measuring 2.7 cm. The ascending aorta is normal in size measuring 2.7 cm. PULMONIC VALVE: Normal thickness and mobility. No stenosis. Trivial regurgitation. PERICARDIUM: No evidence of pericardial effusion. IVC: Collapses with inspiration. Normal size. PLEURA: CONCLUSION: 1. Normal ventricular size and systolic function. Estimated LVEF is 55 to 60%. 2. Mild left atrial dilatation. 3. No significant valvular dysfunction. 4. Normal right-sided pressures. Adult Echocardiography Procedure Report Left Ventricle LVEDD (3.7 - 5.6 cm): 4.04 cm LVESD (2.2 - 4.0 cm): 2.71 cm LVIVS thickness (0.6 - 1.2 cm): 1.25 cm LVPW thickness (0.5 - 1.0 cm): 0.92 cm e': 0.11 m/s E - e': 5.65 LVOT Max Gradient: 3.12 mm[Hg] LVOT Area (cm2): 0.88 m/s Peak Velocity (LVOT): 0.88 m/s Mean Velocity (LVOT): 0.63 m/s LVOT Diameter 2.01 cm Left Ventricular Ejection Fraction: 55-60 % Left Atrium LA Volume Index (2D A2C): 27.14 ml/m2 Left Atrium Systolic Dimension: 3.72 cm Mitral Valve MV E to A Ratio: 0.87 Mitral Valve A-Wave Peak Velocity: 0.74 m/s Mitral Valve E-Wave Peak Velocity: 0.65 m/s Right Ventricle RV Internal Diastolic Dimension: 3.17 cm Aorta AO Root Diam: 2.72 cm Ascending Ao Diam: 2.74 cm Aortic Valve AoV Area (Peak Shadi): 2.38 cm2, 2.38 cm2 AoV Area (VTI): 2.45 cm2, 2.45 cm2 Peak Velocity(Antegrade Flow): 1.17 m/s Peak Gradient(Antegrade Flow): 5.47 mm[Hg] Mean Velocity(Antegrade Flow): 0.81 m/s Mean Gradient(Antegrade Flow): 2.99 mm[Hg] Velocity Time Integral: 25.17 cm Tricuspid Valve Peak Velocity (Regurgitant Flow): 2.28 m/s, 2.70 m/s, 2.14 m/s Pulmonic Valve Mean Gradient: 2.72 mm[Hg], 2.99 mm[Hg] Mean Velocity: 0.79 m/s, 0.83 m/s Peak Velocity: 1.14 m/s Peak Gradient: 4.61 mm[Hg], 5.90 mm[Hg] Right Atrium Right Atrium Systolic Pressure: 36.64 ml, 36.64 ml Dictated by: Rey Tapia M.D. on 12/12/2024 at 21:27 Approved by: Rey Tapia M.D. on 12/12/2024 at 21:31 Dictated By: REY TAPIA Signed By: 12/12/242131 DD/ 30 TD/TT: Pomologist:NM max perf SPECT rest str Reviewed date:12/12/2024 06:53:02 PM Interpretation: Performing Lab: Notes/Report: Source Facility: [place] [address] Nuclear Medicine Report Signed Patient: THERESA REYES MR#: [id number] : 1970 Acct:[id number] Age/Sex: 54 / F ADM Date: 12/12/24 Loc: CARD Attending Dr: Gabby Dee M.D. Ordering Physician: Gabby Dee M.D. Date of Service: 12/12/24 Procedure(s): NM max perf SPECT rest str Accession Number(s): [id number] cc: Gabby Dee M.D. Patient Name: THERESA REYES MR#: [id number] : 1970 Exam Date: 12/12/2024 Ordering Doctor: DR GABBY DEE . RADIOLOGY REPORT PROCEDURE: NM MAX PERF SPECT REST STR COMPARISON: None. INDICATIONS: V-TACH, SUPRAVENTRICULAR TACHYCARDIA, UNSPECIFIED TECHNIQUE: Exam Description: Stress/Rest one day protocol gated SPECT Rest Imagin.6 mCi Tc-99m Cardiolite IV on 12/12/2024 Stress Imaging 31.5 mCi Tc-99m Cardiolite IV on 12/12/2024 Exercise Protocol: Beck Heart Rate (bpm): Rest: 65 Max: 166 PMHR: 100 Blood Pressure: Rest: 138/78 Max: 210/98 Exercise Time: Minutes: 9 Seconds: 35 Stage Reached: Stage: 4 Mets 11.7 Symptoms: Rest and peak stress ECG findings were pending and the EKG portion of the study was pending per attending physician [facility] . For more details please see separate cardiac stress test report. FINDINGS: QUALITY OF STUDY: Good PERFUSION DEFECT: None LOCATION: SIZE: SEVERITY: TYPE: WALL MOTION: Normal LV SIZE: LV EDV 77 mL. TID / TCD: 1.0 LVEF: Calculated EF 70%. SUMMARY: Normal myocardial perfusion imaging study CONCLUSION: Normal nuclear myocardial perfusion stress test without evidence of ischemia or infarction Normal left ventricle systolic function, ejection fraction 70% No transient ischemic dilatation, TID score 1.0 EKG portion of stress test is reported separately Dictated by: Carole Osullivan MD on 12/12/2024 at 18:40 Approved by: Carole Osullivan MD on 12/12/2024 at 18:43 Dictated By: Carole Osullivan M.D. Signed By: 12/12/241843 DD/ 42 TD/TT: Pomologist:TSH Reviewed date:08/04/2024 08:28:35 PM Interpretation: Performing Lab: Notes/Report: [facility] ,Thyroid Stimulating Hormone1.4520.358-3.740 uIU/mLPerforming Lab:see noteML - [facility] LBPROF 14(COMP METB) Reviewed date:08/04/2024 08:28:35 PM Interpretation: Performing Lab: Notes/Report: [facility] ,Idqzda925636-762 mmol/LPotassium4.13.5-5.1 mmol/WWdonvyqs74101-565 mmol/LCarbon Vgoroaa38.021.0-32.0 mmol/LAnion Gap14.8Zbpvjxk45477-610 mg/dLBlood Urea Rmermkhz55.07.0-18.0 mg/dLCreatinine0.820.55-1.02 mg/dLEstimated GFR ( Masha>60>=60 mL/min/1.73m 2Estimated GFR (Non- Rebecca>60>=60 mL/min/1.73m 2BUN Creatinine Ratio20.4Fnohfmr5.98.5-10.1 mg/dLBilirubin Total0.60.2-1.0 mg/dL Aspartate Amino Mwnytebgimr8885-83 U/LAlanine Kyrejxnwcqmxsszm5743-97 U/L Alkaline Gjdjlveklhz7079-836 U/LTotal Protein7.16.4-8.2 g/dLAlbumin Level3.73.4- 5.0 g/dLGlobulin3.4Albumin Globulin Ratio1.1Performing Lab:see noteML - [facility] LBLIPID PROFILE Reviewed date:08/04/2024 08:28:35 PM Interpretation: Performing Lab: Notes/Report: [facility] ,Uexvsfracjsmi052<=150 mg/qNJbjfwejfvgr345<=200 mg/dLHDL Anifrhkmhgb8204-74 mg/dL > or =60 mg/dl - LOW CARDIOVASCULAR RISK <40 mg/dl - HIGH CARDIOVASCULAR RISK LDL Cholesterol Vjyvvdnzta353.0 <100 mg/dl OPTIMAL 100-129 mg/dl NEAR OR ABOVE OPTIMAL 130-159 mg/dl BORDERLINE HIGH 160-189 mg/dl HIGH >190 mg/dl VERY HIGH VLDL QSIUUEOAOOP75.4Chol HDL Ratio6.2 3.3 - 4.4 LOW RISK 4.4 - 7.1 AVERAGE RISK 7.1 - 11.0 MODERATE RISK >11.0 HIGH RISK Performing Lab:see noteML - [facility] LBMR ankle RT wo con Reviewed date:08/04/2024 08:28:35 PM Interpretation: Performing Lab: Notes/Report: Source Facility: [place] [address] [place] [address] Magnetic Resonance Report Signed Patient: THERESA REYES MR#: [id number] : 1970 Acct:[id number] Age/Sex: 53 / F ADM Date: 03/02/24 Loc: MRI Attending Dr: Terra Shepherd D.P.M. Ordering Physician: Terra Shepherd D.P.M. Date of Service: 03/02/24 Procedure(s): MR ankle RT wo con Accession Number(s): [id number] cc: Terra Shepherd D.P.M.; Gabby Dee M.D. [address] [place] [address] Patient Name: THERESA REYES MRN: [id number] date: 1970 Sex: F Assigned Patient Location: MRI Current Patient Location: MRI Accession/Order Number: [id number] Exam Date: 03/02/2024 07:05 Report Date: 03/04/2024 [...] Signed By: 05/05/24 1235 DD/ 1353 TD/TT: Pomologist:XR foot RT min 3V Reviewed date:08/04/2024 08:28:35 PM Interpretation: Performing Lab: Notes/Report: Source Facility: [place] [address] XRay Report Signed Patient: THERESA REYES MR#: [id number] : 1970 Acct:[id number] Age/Sex: 53 / F ADM Date: 02/23/24 Loc: RAD Attending Dr: Terra Shepherd D.P.M. Ordering Physician: Terra Shepherd D.P.M. Date of Service: 02/23/24 Procedure(s): XR foot RT min 3V Accession Number(s): [id number] cc: Terra Shepherd D.P.M.; Gabby Dee M.D. [place] [address] Patient Name: THERESA REYES MRN: [id number] date: 1970 Sex: F Assigned Patient Location: [facility] Current Patient Location: Accession/Order Number: [id number] Exam Date: 02/23/2024 08:35 Report Date: 02/24/2024 [...] Salas M.D. Signed By: 02/24/2454 DD/ TD/TT: Pomologist:XR DEXA axial skeleton Reviewed date:01/27/2024 07:43:12 PM Interpretation: Performing Lab: Notes/Report: Source Facility: [place] [address] XRay Report Signed Patient: THERESA REYES MR#: [id number] : 1970 Acct:[id number] Age/Sex: 53 / F ADM Date: 01/25/24 Loc: RAD Attending Dr: Dru Donato D.O. Ordering Physician: Dru Donato D.O. Date of Service: 01/25/24 Procedure(s): XR DEXA axial skeleton Accession Number(s): [id number] cc: Dru Donato D.O.; Gabby Dee M.D. [place] [address] Patient Name: THERESA REYES MRN: [id number] date: 1970 Sex: F Assigned Patient Location: [facility] Current Patient Location: Accession/Order Number: [id number] Exam Date: 01/25/2024 10:03 Report Date: 01/27/2024 [...] prevention and treatment of osteoporosis. Osteoporos Int. 2021;33(10):9578-8563. doi: 10.1007/m51335-226-04063-s. Epub 2021Jul 11. Erratum in: Osteoporos Int. 2021Oct 10;: PMID: [id number]; PMCID: [id number]. Electronically authenticated by: AL CAMPOS Date: 01/27/2024 14:16 Dictated By: Al Campos M.D. Signed By: 01/27/24 1418 DD/ 1416 TD/TT: Pomologist:LIPID PROFILE Reviewed date:12/05/2024 01:14:15 PM Interpretation: Performing Lab: Notes/Report: [facility] ,Mlwwzqvwyizvu316<=150 mg/sLMthnnncmtan514<=200 mg/dLHDL Wzjzfqtxhiz9907-11 mg/dL > or =60 mg/dl - LOW CARDIOVASCULAR RISK <40 mg/dl - HIGH CARDIOVASCULAR RISK LDL Cholesterol Rhqonjihso020.0 <100 mg/dl OPTIMAL 100-129 mg/dl NEAR OR ABOVE OPTIMAL 130-159 mg/dl BORDERLINE HIGH 160-189 mg/dl HIGH >190 mg/dl VERY HIGH VLDL MBWLVBEIIAU24.4Chol HDL Ratio6.8 3.3 - 4.4 LOW RISK 4.4 - 7.1 AVERAGE RISK 7.1 - 11.0 MODERATE RISK >11.0 HIGH RISK Performing Lab:see noteML - [facility] LBGLYCOHEMOGLOBIN A1C Reviewed date:12/05/2024 01:14:15 PM Interpretation: Performing Lab: Notes/Report: [facility] ,Glycohemoglobin A1C5.94.5-6.2 % ADA RECOMMENDED LIMIT 4.0 - 6.0 ADA THERAPEUTIC TARGET < 7.0 ACTION SUGGESTED > 7.0 Estimated Average Apxvuyf294Tklkthnpba Lab:see noteML - [facility] LB XR Foot RT (3 views) * Reviewed date:03/14/2024 01:19:28 PM Interpretation: Performing Lab: Notes/Report: PROF 14(COMP METB) Reviewed date:12/05/2024 01:14:15 PM Interpretation: Performing Lab: Notes/Report: [facility] ,Shswra467577-778 mmol/LPotassium3.93.5-5.1 mmol/UDndptett25416-690 mmol/LCarbon Moypryl18.821.0-32.0 mmol/LAnion Gap12.6Rumemvn14695-435 mg/dLBlood Urea Wbovdwsp93.07.0-18.0 mg/dLCreatinine0.770.55-1.02 mg/dLEstimated GFR ( Masha>60>=60 mL/min/1.73m 2Estimated GFR (Non- Rebecca>60>=60 mL/min/1.73m 2BUN Creatinine Ratio24.3Cbblvsq8.98.5-10.1 mg/dLBilirubin Total0.60.2-1.0 mg/dL Aspartate Amino Uonitmcyeuf8032-73 U/LAlanine Dhqqrjlwlctwfzxx9218-49 U/L Alkaline Qdduipuxydp0012-076 U/LTotal Protein7.46.4-8.2 g/dLAlbumin Level3.83.4- 5.0 g/dLGlobulin3.6Albumin Globulin Ratio1.1Performing Lab:see noteML - [facility] LB Reason For Referral Reason Referral to Nabil Acuna Diagnosis 1 Plantar fascial fibr omatosis (M72.2) Referral Organization [facility] ([facility]) Referring Provider First Name Terra Referring Provider Last Name Joao Referring Provider Speciality Podiatry Referred Provider Specialty Pain Medicin e Referral Priority Routine Diagnosis 1 V-tach (I47.20) Referral Organization [facility] Referring Provider First Name Eliot Referring Provider Last Name Leila Referring Provider Speciality Family [facility] Referred Provider [facility] Cardiology, [facility] Referred Provider Specialty Cardiology Referral Priority Routine Medications Medication SIG (Take, Route, Frequency, Duration) Notes Start Date End Date Status Crestor 5 MG 1 tablet Orally Once a day; Dura tion: 30 days 5ActiveAspirin 81 81 MG1 tablet Orally Once a day; Duration: 30 days 5Active Social History Tobacco Use: Social History Observation Description Date Details (start date - stop date) Never Smoker NA - NA Tobacco Use/Smoking Question Answer Notes Patient is a nonsmoker Alcohol Screen (Audit-C) Question Answer Notes Did you have a drink containing alcohol in the p ast year? Yes How often did you have 6 or more drinks on one occasion in the past year?Never (0 point)How many drinks did you have on a typical day when you were drinking in the past year?1 or 2 drinks (0 point)How often did you have a drink containing alcohol in the past year?Monthly (2 points)Lzoolh8RqhjkranijjjpeYmlqujbwGbmmlqn Control (Standard) Question Answer Notes Tobacco use: Nonsmoker AUDIT-C (Standard) Question Answer Notes Did you have a drink containing alcohol in the p ast year? 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) ActiveconfirmedProblemSupraventricular tachycardia (1077909)Supraventricular tachycardia (I47.1)ActiveconfirmedProblemDegeneration of cervical intervertebral disc (02270479)Other cervical disc degeneration, unspecified cervical region (M50.30)ActiveconfirmedProblemRight side sciatica (344286939298932)Sciatica, right side (M54.31)ActiveconfirmedProblemPlantar fascial fibromatosis (96159632) Plantar fascial fibromatosis (M72.2)ActiveconfirmedProblemHyperlipidemia (96316356)Hyperlipidemia (E78.5)ActiveconfirmedProblemOsteopenia (880570122) Osteopenia (M85.80)ActiveconfirmedProblemStatin not tolerated (105122835)Statin intolerance (Z78.9)ActiveconfirmedProblemWell adult (970453344)Well adult (Z00.00)ActiveconfirmedProblemAcute sinusitis (84239503)Acute sinus infection (J01.90)ActiveconfirmedProblemCervical radiculopathy (76395644)Cervical radicular pain (M54.12)ActiveconfirmedProblemSpasm (07344445)Cramps of lower extremity (R25.2)ActiveconfirmedProblemLow back pain (finding) (726111676)Low back pain at multiple sites (M54.50)Activeconfirmed Vital Signs Heart Rate 81 /min 02/23/2024 Nkiydtwmjbm19.0 degrees Lpmkgqecig95/27/2025lood pressure ramodmjez79 mm Hg 11/17/20244442Ewqiqdah60 %02/23/20244945Yjnges38 in11/17/2024lood pressure jhbhkbem366 mm Hg11/17/20242909Ychtxz644.2 lbs11/17/2024BMI30.73 kg/m211/17/2024 Procedures Procedure Date Ordered Date Performed Result Body Sit e EKG w Interp & Report - performed 11/17/2024 N/AHolter Monitor - 3 days up to 14 days11/17/2024N/RGiubvhqfpfsrek14/23/2025N/A Cardiolyte Stress Test12/06/2024N/A Encounters Encounter Location Date Provider Diagnosis [facility] [address] [place] [address] 03/11/2024 Eliot Hoy Fever R50.9 ; Acute bronchitis, unspecified organism J20.9 and Influenza A 487.1 [facility] [address] [place] [address] 04/11/2024 Eliot Hoy Acute bronchitis, unspecified organism J20.9 [facility] (PODIAT[facility]) [address] [place] [address] [place] [address] 02/23/2024 Terra Shepherd Plantar fascial fibromatosis M72.2 ; Unspecified mononeuropathy of right lower limb G57.91 ; Sciatica, right side M54.31 and Right foot pain M79.671 [facility] [address] [place] [address] 11/17/2024 Eliot Hoy Well adult Z00.00 an d Palpitation R00.2 [place] [address] [place] [address] 12/05/2024 Eliot Hoy Hyperlipidemia E78.5 and Encounter for long-term current use of medication Z79.899 [place] [address] [place] [address] 12/06/2024 Eliot Hoy V-tach I47.20 and Supraventricular tachycardia, unspecified I47.10 [facility] [address] [place] [address] 12/12/2024 Eliot Hoy [address] [place] [address] 06/22[facility]2024[facility] [place] [address]/17/2025Doug HoyWellness examination Z01.89[place] [address] [place] [facility] [place] [address]/02/2025Doug HoyWell adult Z00.00[facility] [place] [facility] [place] [address]/Doug HoyHyperlipidemia E78.5[place] [address] [place] [facility] [place] [address]/06/2024[place] [address] [place] [place] [address]/Doug Hoy Hyperlipidemia E78.5 and Abnormal glucose R73.[address] [place] [address]/oug Hoy Assessments Encounter Date Diagnosis (ICD Code) Assessment Notes Treatment Notes Treatment Clinical Notes Section Notes 04/11/2024 Acute bronchitis, unspecified or ganism (ICD-10 - J20.9) Rest and drink more liquids, especially water. You may use a humidifier or vaporizer to help keep the drainage moist. Dmau-svf-awstxaq Nasal Saline may help the stuffy and runny nose. Use Ibuprofen and or Tylenol as needed for fever, chills, body aches or pain. Children 5 years old should not be given daef-uby-liyhpuv cough and cold medications such as guaifenesin and dextromethorphan. If you're over age 5, you may try jbwp-wlv-jwpjlna cold medications such as guaifenesin and dextromethorphan, or multi-symptom cold reliever such as Dayquil to help reduce the symptoms. Antibiotics have been pre scribed. You should take these until completed and follow the directions. Antibiotics can sometimescause upset stomach, and in rare cases, serious allergic reactions or serious gastrointestinal problems. If you start having severe abdominal pain, severe vomiting, or bloody diarrhea, you should be r eevaluated by your physician or urgent care immediately. Follow up with your Primary Care Provider or return to clinic if symptoms do not improve within 3-5 days. If you develop severe symptoms such as shortness of breath, repeated vomiting, coughing up blood, or chest pain you should go to the emergency room or call [phone] (ICD-10 - R00.2)11/17/2024Well adult (ICD-10 - Z00.00)06/30/2024Wellness examination (ICD-10 - Z01.89)07/25/2024Well adult (ICD-10 - Z00.00)08/04/2024Hyperlipidemia (ICD-10 - E78.5)11/28/2024 Hyperlipidemia (ICD-10 - E78.5)11/28/2024bnormal glucose (ICD-10 - R73.09) 12/05/2024Hyperlipidemia (ICD-10 - E78.5)12/05/2024Encounter for long-term current use of medication (ICD-10 - Z79.899)12/06/2024V-tach (ICD-10 - I47.20) 12/06/2024Supraventricular tachycardia, unspecified (ICD-10 - I47.10)02/23/2024 Unspecified mononeuropathy of right lower limb (ICD-10 - G57.91)02/23/2024 Plantar fascial fibromatosis (ICD-10 - M72.2)Patient seen and evaluated. Patient education provided and [...] that she is experiencing now. She has painboth at rest as well as with activity. [...] She will follow-up after the MRI is /27/2024Fever (ICD-10 - R50.9)03/11/2024cute bronchitis, unspecified organism (ICD-10 - J20.9)Rest and drink more liquids, especially water. You may use a humidifier or vaporizer to help keep the drainage moist. Wfqc-vri-sbxsnda Nasal Saline may help the stuffy and runny nose. Use Ibuprofen and or Tylenol as needed for fever, chills, body aches or pain. Children 5 years old should not be given rfaa-viw-axniqxn cough and cold medications such as guaifenesin and dextromethorphan. If you're over age 5, you may try xntk-knu-ixxfwbx cold medications such as guaifenesin and dextromethorphan, or multi-symptom cold reliever such as Dayquil to help reduce the symptoms. Antibiotics have been pre scribed. You should take these until completed and follow the directions. Antibiotics can sometimescause upset stomach, and in rare cases, serious allergic reactions or serious gastrointestinal problems. If you start having severe abdominal pain, severe vomiting, or bloody diarrhea, you should be r eevaluated by your physician or urgent care immediately. Follow up with your Primary Care Provider or return to clinic if symptoms do not improve within 3-5 days. If you develop severe symptoms such as shortness of breath, repeated vomiting, coughing up blood, or chest pain you should go to the emergency room or call [phone] A (ICD9-CM - 487.1)02/23/2024Sciatica, right side (ICD-10 - M54.31)02/23/2024ight foot pain (ICD-10 - M79.671) Plan Of Treatment Pending Test Test Name Order Date CMP (COMPLETE METABOLIC PANEL) HEMOGLOBIN A1C (GLYCO) 11/06/2022 LIPID PANEL (CHOL/TRIG/HDL/LDL) 11/07/19 CBC WITH DIFF 11/06/2022 Echocardiogram 12/06/2024 MRI Ankle RT w/o contrast (Hind Foot) MRI Cervical Spine w/o contrast * 2022 EKG w Interp & Report - performed 2024 CMP - Comprehensive Metabolic Panel 11/14 Cardiolyte Stress Test 12/06/2024 MAMM Screen Bilateral 11/06/2022 CBC W/AUTO DIFF 04/29/2023 CBC AUTO DIFF 07/25/2024 GLYCOHEMOGLOBIN A1C 07/25/2024 LIPID PROFILE 12/05/2024 LIPID PROFILE 07/25/2024 LIVER PROFILE 10/13/2023 LIVER PROFILE 08/04/2024 LIVER PROFILE 12/05/2024 MAGNESIUM 11/17/2024 PROF 14(COMP METB) 07/25/2024 TSH 07/25/2024 TSH 11/06/2022 THYROID PANEL (T4/TSH/FREE T3) Holter Monitor - 3 days up to 14 days Lipid Panel 10/13/2023 Lipid Panel 08/04/2024 Insurance Providers Payer Name Payer Address Payer Phone Subscriber Number Group Number Insured Name Patient Relationship to Insured Coverage Start Date Coverage End Date [employer] PPO PLUS LOCAL PLAN [address] [place] [address] [id number] SrirammagoTheresa Self - patient is the insured 3 Medications Administered Medication Instructions Date of Administration Dosage Notes Kenalog-40 ch325Ujxbjxr-5028/09/2024120 mgKetorolac Jgygnallfbbo69/08/690559 ls16Ejtodyebk Paxhnjmfdznd22/09/202460 mgKetorolac Ojqbkciysgzg17/10/202460 mg Orphenadrine Zzlulfz00 va72Ghofiadlymty Krezaux94 mg Orphenadrine Zzcekyk63 mg Medical (General) History Medical History History ICD Code Anxiety F41.9 Arthralgia M25.50 COVID-19 U07.1 Low back pain at multiple sites M54.50 Lumbosacral radiculitis M54.17 Hypercholesteremia E78.00 Sciatic pain, right M54.31 arthritis undefined high cholesterol Surgical History Surgery Date(Month/Year) cervical spine c3-c7 sx 05/20/23 Ganglion Cyst Removal- Rt Foot C3-C7 dweskea36/24cyst removal/ plantar fasciitis [id number]
--- OUTSIDE RECORDS SUMMARY | 2025-01-03 12:13 | XMS_ITS | Encounter Summary ---
Author Organization [facility] Address [address] [place] [address] Care Team Providers Care Orthoptist Name Role Phone Rod Dee MD Primary Care Provider [phone] Encounter Details DateTypeDepartmentCare Team (Latest Contact Info)Njvunoutscr90/21/2025amboo flowsheet [facility] [address] [place] [address] Willem Donato DO [address], [place] [address] Social History Tobacco UseTypesPacks/DayYears UsedDateSmoking Tobacco: NeverAlcohol UseStandard Drinks/WeekCommentsYes0 (1 standard drink = 0.6 oz pure alcohol)Alcohol: 1 or 2 drinks on a typical day/monthly or less Caffeine: 2-3 cups/dayCommentsNo Sex and Gender InformationValueDate RecordedSex Assigned at BirthFemale 09/03/2022 11:32 AM EDTLegal NabHhnfng88/15/2023 7:20 PM EDTGender Identity Jjdbsb5109/03/2022 11:32 AM EDTSexual OrientationNot on filedocumented as of this encounter Plan of Treatment DateTypeDepartmentCare Team (Latest Contact Info)Ejnvxvxwerq95/29/2026 9:00 AM EDTProcedure Visit [facility] [address] [address] [place] [address] Willem Donato, [address] [place] [address] documented as of this encounter Visit Diagnoses Not on filedocumented in this encounter Care Teams Team MemberRelationshipSpecialtyStart DateEnd Date Rod Dee MD PCP - GeneralFamily Xywzarhs35/10/23documented as of this encounter
--- OUTSIDE RECORDS SUMMARY | 2025-01-03 12:14 | XMS_ITS | CCD ---
Author Organization [facility] Care Team Providers Care Production Inspector Name Role Phone Gabby Dee Primary Care Physician [phone] Morris CAGLE Attending Unavailable Morris CAGLE Attending [...] ., DR PIERRE Consulting Unavailable ZIEBER, DR AKN Valles Consulting Unavailable LEEANNE BRADLEY Consulting Unavailable [...] Unavailable HOY ., DR PIERRE Admitting Unavailable DEER PARK, DR AL Shaikh Consulting Unavailable HOY [...] Unavailable HOY ., DR PIERRE Consulting Unavailable DEER PARK, DR AL Shaikh Consulting Unavailable HOY ., DR PIERRE Admitting Unavailable HOY ., DR PIERRE Attending Unavailable HOY ., DR PIERRE Primary Care Unavailable Gabby Dee MD Primary Care Provider [phone] DRU DONATO Attending Unavailable DEMETRA GRANADOS Attending Unavailable Gabby Dee MD Primary Care Provider [phone] Allergies Allergy ClassificationReported Allergen(s)Allergy TypeDate of OnsetReaction(s) Facility (1 source)No Known Medication Allergies; Translations: [No Known Medication Allergies]Propensity to adverse reactions (disorder)[facility] Repository (2 sources)BaclofenDrug AllergyThe [facility] Medications Current Medications MedicationDrug Class(es)DatesSig (Normalized)Sig (Original)24 hr desvenlafaxine succinate 25 mg extended release oral tablet (4 sources)Serotonin and Norepinephrine Reuptake InhibitorStart: 20-05-8090qykt 1 tablet by mouth once dailydesvenlafaxine 25 mg oral tablet, extended release 25 mg = 1 tab(s), Oral, Daily, Refills(s) 0 Start Date: 02/21/21 Status: Ordered End: 32-96-2505zvkp 1 tablet by mouth every twenty-four hours in the morning desvenlafaxine (Pristiq) 50 MG 24 hr tablet Take 50 mg by mouth in the morning. Do not crush, chew,or split. . 12/29/2023 Discontinuedsimvastatin 20 mg oral tablet (10 sources)HMG-CoA Reductase InhibitorStart: 04-08-2022 End: 11-49-4544rosy 1 tablet by mouth once daily at bedtimesimvastatin 20 mg Tab 20 mg = 1 tab(s), Oral, Once a day (at bedtime), Refills(s) 0 Start Date: 04/08 Status: Ordered Completed/Discontinued Medications MedicationDrug Class(es)DatesSig (Normalized)Sig (Original)diclofenac sodium 75 mg delayed release oral tablet (9 sources)Nonsteroidal Anti-inflammatory DrugStart: 11-12-2022 End: 60-90-7753jyjf 1 tablet by mouth in the morningdiclofenac (Voltaren) 75 MG EC tablet Take 75 mg by mouth in the morning and 75 mg before bedtime. 0 11/12/2022 12/29/2023 Discontinuedtriamcinolone acetonide 40 mg/ml injectable suspension (20 sources)CorticosteroidStart: 53-84-5806Rlknhrj-40 Dec, 20 mg Problems Active Problems Problem ClassificationProblemDateDocumented DateEpisodic/ChronicAnal and rectal conditions (1 source)Rectal polyp; Translations: [RECTAL POLYP]Onset: 11-73-7878Ljqiotrv Anxiety disorders (1 source)Jbzdmmc79-84-2710ZkrlqnwRioklnhcw of lipid metabolism (2 sources)Pure hypercholesterolemia; Translations: [Pure hypercholesterolemia, unspecified]Onset: 879332-67-6181QzsjzouYcvuzfvwsmlrss and diverticulitis (1 source)Diverticulosis of large intestine without perforation or abscess without bleeding; Translations: [DVRTCLOS LG INT NO PERF/ABSC W/O BL]Onset: 46-11-3554VwklympBxbxaczdqdkcavvh hemorrhage (2 sources)Hematochezia; Translations: [Rectal hemorrhage]60-93-7454Ppxazamb Headache; including migraine (1 source)Tension-type ynimlphm12-99-2009JrxrwviThibedndkiphti (20 sources)Arthritis of first carpometacarpal joint of right hand; Translations: [Unilateral primary osteoarthritis of first carpometacarpal joint, right hand]Onset: 99-48-3758ZckzkbnLgeeb and unspecified benign neoplasm (1 source)Benign neoplasm of colon; Translations: [Benign neoplasm of colon, unspecified]Onset: 29-64-9794TfsialtuUgfmn and unspecified benign neoplasm (1 source)Adenomatous polyp of -75-3071NrsslocwMvyku and unspecified benign neoplasm (4 sources)Personal history of colonic polyps; Translations: [PERSONAL HISTORY OF COLONIC POLYPS]Onset: 96-46-0767FhciyinjYidhs connective tissue disease (6 sources)Trigger finger, right middle fingerEpisodicOther connective tissue disease (4 sources)Pain in right handEpisodicOther connective tissue disease (4 sources)Pain in right foot; Translations: [PAIN IN RIGHT FOOT]Onset: 15-74-1722KfkecdkiMgjco connective tissue disease (5 sources)Pain in left handEpisodicOther connective tissue disease (1 source)Lateral epicondylitis, right elbowEpisodicOther nutritional; endocrine; and metabolic disorders (1 source)Body mass index 30+ - -85-8948ZvstlbeYtwbr upper respiratory disease (1 source)Seasonal allergic jfratttq31-30-2809TvcyuonFgdyxbcw codes; unclassified (2 sources)Postmenopausal state; Translations: [Asymptomatic menopausal state] 46-10-5887IkmwrfloSiweqjkifdu; intervertebral disc disorders; other back problems (1 source)Lumbar nndeuxxcolcva22-26-4923TblxousnQaiyrluxertk (1 source)Pain in left hand; Translations: [Pain in left hand]Onset: 06-03-2022 Unclassified (4 sources)CONTACT W/AND (SUSP) EXPOS COVID-19; Translations: [CONTACT W/AND (SUSP) EXPOS COVID-19]Onset: 46-08-9278Huoxiggeazio (1 source)Supraventricular tachycardia, unspecified; Translations: [Supraventricular tachycardia, unspecified]Onset: 22-67-4508Kghzh infection (1 source)COVID-19; Translations: [COVID-19]Onset: 10-08-2021 Past or Other Problems Problem ClassificationProblemDateDocumented DateEpisodic/ChronicAcute bronchitis (4 sources)Acute bronchiolitis, unspecified; Translations: [ACUTE BRONCHIOLITIS UNSPECIFIED]Onset: 83-71-8845UfsdbiegQtzre bone disease and musculoskeletal deformities (5 sources)Osteopenia; Translations: [Other specified disorders of bone density and structure, unspecified site]Onset: 803219-27-0599XwenvhylOqtox connective tissue disease (5 sources)Impingement syndrome of left shoulder; Translations: [IMPINGEMENT SYNDROME LEFT SHOULDER]Onset: 94-25-6125LtposwrdHqjzv connective tissue disease (1 source)Abnormal posture; Translations: [ABNORMAL POSTURE]Onset: 01-02-2022 EpisodicOther non-traumatic joint disorders (4 sources)Pain in left shoulder; Translations: [PAIN IN LEFT SHOULDER]Onset: 66-25-1495XokuvphxUuisb screening for suspected conditions (not mental disorders or infectious disease) (5 sources)Stool DNA-based colorectal cancer screening positive; Translations: [Encounter for screening mammogram for malignant neoplasm of breast]Onset: 968036-07-3043OjdcqamtYlfhvslh codes; unclassified (1 source)Family history of malignant neoplasm of breast; Translations: [FAMILY HX MALIG NEOPLASM OF BREAST]Onset: 08-09-0816WmoejssvWprngfcu codes; unclassified (1 source)Family history of malignant neoplasm of ovary; Translations: [FAM HX MALIGNANT NEOPLASM OVARY]Onset: 52-18-7779AyxhdguhHidhuiz and strains (1 source)Strain of muscle, fascia and tendon at neck level, initial encounter; Translations: [STRN MUSC FASCTENDON NECK LEVL INT]Onset: 07-36-5616Vnsbzqmf Unclassified (1 source)CONTACT W/AND (SUSP) EXPOS COVID-19; Translations: [CONTACT W/AND (SUSP) EXPOS COVID-19]Onset: 07-59-0298Mhlsnrvledik (1 source)Supraventricular tachycardia, unspecified; Translations: [Supraventricular tachycardia, unspecified]Onset: 12-14-2024 Results Test NameValueInterpretationReference RangeFacilityOffice Visiton 12-14-2024 Follow-up [id number] Theresa Reyes 1970 F Date Provider Department Center 12/14/2024 245-DEMETRA GRANADOS [facility] Family History Family Status - Relation Status Age at Mother Alive Father Alive Brother Alive Level of Service:97717 ID OFFICE/OUTPATIENT NEW MODERATE MDM 45 MINUTES Reason for Visit and Comments: New Patient [632] - Patient is here today to establish care with cardiology for SVT and VT oh holter monitor. Patient recently had Echo, stress test, Labs, Holter monitor. Patient complains of chest tightness, SOB, SOTELO, dizziness/lightheaded with position changes, fatigue, Patient states she doesnt feel like she sleep well at night,patient does snore. Patient states her blood pressure in the office its been 140 to 150. Hyperlipidemia [182] SVT [Other] - On holter monitor Ventricular tachycardia [Other] - On holter monitor Palpitations []NormalUnRegency Hospital Cleveland WestOrders Onlyon 44-84-6291Luomqk [id number] Theresa Reyes Gwendolyn 1970 F Date Provider Department [place] 12/13/2024 [id number], HISTORICAL CARD Diamond Ramesh Family History Family Status - Relation Status Age at Mother Alive Father Alive Brother AliveNormalUniversKettering Health Greene MemorialIGP,APTIMA HPV,AGE GDLNon 07-52-4563HIF GDLN ACOG TESTINGNote.NOMS HealthcareComment on above:TESTS RESULT FLAG UNITS REF RANGE LAB Clinician Provided Cytology Information Source.............Cervix;Endocervix No. of containers..01 ThinPrep Vial Age Algo ACOG Sheila... FLAG LEGEND: L-Low Normal,H-High Normal,LL-Alert Low,HH-Alert High <-Panic Low,>-Panic High,A-Abnormal,AA-Critical Abnormal Performed at: 01 =G [facility] [address] [place] [address] Sharmaine Hall MD, HPV APTIMANegativeNegativeNOMS HealthcareComment on above:This nucleic acid amplification test detects fourteen high- risk HPV types (16,18,31,33,35,39,45,51,52,56,58,59,66,68) without differentiation. Performed at: = - [facility] [id number] [employer] Man: Sharmaine Hall MD, Phone: [phone] Performed at: - [address] [id number] [employer] Man: Sharmaine Hall MD, Phone: [phone] IGP, APTIMA HPV, RFX 16/18,45Note.NOMS HealthcareComment on above:TESTS RESULT FLAG UNITS REF RANGE LAB DIAGNOSIS: 02 NEGATIVE FOR INTRAEPITHELIAL LESION OR MALIGNANCY. Specimen adequacy: 02 Satisfactory for evaluation. Endocervical and/or squamous metaplastic cells (endocervical component) are present. Performed by: Mandy Luis, Sparmaker ([facility]) . 02 Note: Note 02 The Pap [...] <-Panic Low,>-Panic High,A-Abnormal,AA-Critical Abnormal Performed at: [address] [place] [address] Sharmaine Hall MD, BRUSH-SPATULA CERVIX ENDOCERVIX CLINISYNCNOMS HealthcareXR hand LT min 3V*on 47-63-7439MF hand LT min 3V* [facility] [place] [address] XRay Report Signed Patient: Theresa Reyes MR#: [id number] : 1970 Acct:[id number] Age/Sex: 52 / F ADM Date: 06/03/22 Loc: [facility] Room: Type: [facility] Attending Dr: Diamond Case MD [...] Miguel Ramey M.D.06/03/2022 1:11 PM Dictation Location: [place] [address] Transcribed By: [facility] 06/03/22 1311 Dictated By: Miguel Ramey II, MD 06/03/22 131 Signed By: 06/03/22 131St[facility]'s HospitalXR hand LT min 3V*[facility] [employer] Other XR hand LT min 3V*[facility] Main [facility] [employer] Other XR hand LT min 3V*[facility] [employer] Other XR hand LT min 3V*YULIANA Doshi [address]omcu [employer] Other XR hand LT min 3V*[facility] [employer] Other XR hand LT min 3V*[facility] [employer] Other XR hand LT min 3V*Patient: Theresa Reyes MR#: [id number] [employer] Other XR hand LT min 3V*01871Mswjb [employer] Other XR hand LT min 3V*: 1970 Acct:[id number] [employer] Other XR hand LT min 3V*Age/Sex: 52 / F ADM Date: 06/03/22 Lamar [employer] Other XR hand LT min 3V*Loc: [facility] Room: Type: [facility] [employer] Other XR hand LT min 3V*Attending Dr: Diamond Case MD Lamar [employer] Other XR hand LT min 3V*Copies to: Diamond Case MDLamar [employer] Other XR hand LT min 3V*Ordering Provider: Diamond Case MDSnapTell [employer] Other XR hand LT min 3V*Date of Service: 06/03/22Lamar [employer] Other XR hand LT min 3V* XR/XR hand LT min 3V*: [facility] Medical CenterLevel Four Software Other XR hand LT min 3V*XR hand LT min 3V* 06/03/2022 8:44 AM [employer] Other XR hand LT min 3V*SIGNS AND SYMPTOMS: Left thumb/first metacarpal painNort [employer] Other XR hand LT min 3V*PROTOCOL: Frontal, lateral, and oblique radiographs of the left hand:[employer] Other XR hand LT min 3V*COMPARISON: NoneLamar [employer] Other XR hand LT min 3V*FINDINGS:[employer] Other XR hand LT min 3V*The bones are in anatomic alignment. There is mild degenerative change at the first carpometacarpalNort [employer] Other XR hand LT min 3V*junction. There is preservation of the joint spaces, otherwise. There is no fracture or dislocation.[employer] Other XR hand LT min 3V*No significant soft tissue swelling. [employer] Other XR hand LT min 3V* XR/XR hand LT min 3V*[employer] Other XR hand LT min 3V*IMPRESSION:[employer] Other XR hand LT min 3V*No acute bony injury.[employer] Other XR hand LT min 3V*Mild degenerative facet noted at the base of the thumb.[employer] Other XR hand LT min 3V*Impression dictated by: Miguel Ramey M.D.06/03/2022 1:[address] PMNssm [facility] [employer] Other XR hand LT min 3V*Dictation Location: [address] [employer] Other XR hand LT min 3V*Transcribed By: KARRIE 06/03/22 1311 [employer] Other XR hand LT min 3V*Dictated By: Miguel Ramey II, MD 06/03/[address] [place] [address] [employer] Other xr hand LT min 3V*Signed By:Lamar [employer] Other xr hand LT min 3V*06/03/22 [facility] InstituteSnapTell [employer] Other Reminderson 05-15-7640Vnhrvgpnb From: Jessica Mims LPN To: N - Clinical; Sent: 05/15/2022 07:57:39 EST Show up: 04/06/2025 07:00:00 EST Subject: colonoscopy recall Due Date/Time: 05/07/2025 07:00:00 EST Reminder/Recall Patient is due for colonoscopy 05/07/2025 due to history of tubulovillous adenoma.[facility] HospitalPathology Noteon 29-42-8106Fffktjfww [id number]#1.00CD:[address] [place], [place] [address]Outside Colonoscopyon 68-45-1424Gqiqvax Colonoscopy [id number]#1.00CD:[address] [place], [place] [address]PREG HCG QUALon 29-09-8116JQDSWZUVK, QUALNegativeNormalNEGATIVEThe [facility] Hospital ToledoComment on above:Performed By: #### PREG #### [facility] [address] [place] [address] Dr. Hu CanPre-Certification Formon 38-57-3722Lip-Certification Form [id number]#1.00CD:[address] [place], [place] [address]Consent for Procedure/Surgeryon 38-30-8296Vguhwwj for Procedure/Surgery [id number]#1.00CD:[address] [place], [place] [address]Facesheeton 10-17-1533Mcawgqjys [id number]#1.00CD:127NormalFisher [facility] Surgery Office/Clinic Noteon 79-29-5740Iszqbnb Surgery Office/Clinic NoteChief Complaint colonoscopy recall [facility] Staff 51 year old female presents on [...] doing well, denies change in bms or bloodin stools, no abd complaints; no previous abdominal [...] swallowing difficulties, no hearing loss, no ear infection(s),no nose bleeds. Cardiovascular: normal blood pressure, no [...] 04/30/2020 Recorded SARS-CoV-2 (COVID-19) Ad26 vaccine 04/02/2020 RecordedNormalFisher University Of Maryland Medical CenterComment on above:Result Comment: Electronically Signed By: Morris CAGLE MD\Date and Time Signed: 04/08/22 15:33 ESTCovid-19 PCR ([facility])on 98-60-9865GMXW-CoV-2 (COVID-19) RNA CLARISSA+probe Ql (Unsp spec)Not detectedNormal NOT DETECTEDThe [facility] Hospital ToledoComment on above:Result Comment: When diagnostic testing is negative, the possibility of a false negative should be c onsidered in the context of a patient's recent [...] for this test is supported by the [place] of Health and Human Service's declaration that circumstances exist to justify the emergency use of in vitro diagnostics for the detection and/or diagnosis of the virus that causes COVID-19. This EUA will remain in effect for the duration of the COVID-19 declaration justifying emergency of IVDs, unless it is terminated or revoked by the FDA (after which the test may no longer be used).Performed By: #### CVDTBH #### [facility] [address] [place] [address] Dr. Hu CarpneterNZA A AND B AGon 68-84-7111KAKTMYNDISOFB Greene Memorial HospitalComment on above:Result Comment: Negative for Flu A protein angiten. Infection due to Flu A cannot be ruled out. FluA angiten in the sample may be below the detection limit of the test.Performed By: #### INFLUAB #### [facility] [address] [place] [address] Dr. Hu CanINFLUBNEGDayton Osteopathic HospitalComment on above: Result Comment: Negative for Flu B protein antigen. Infection due to Flu B cannot be ruled out. FluB antigen in the sample may be below the detection limit of the test.Performed By: #### INFLUAB #### [facility] [address] [place] [address] Dr. Hu Lewis AGNegativeNormalNEGATIVE SEE COMMENTThe [facility] Hospital ToledoComment on above:Performed By: #### INFLUAB #### [facility] [address] [place] [address] Dr. Hu Herzog AGNegativeNormalNEGATIVE SEE COMMENTOhiohealth Grove City Methodist HospitalComment on above:Performed By: #### INFLUAB #### [facility] [address] [place] [address] Dr. Hu CanINTERNAL CONTROLSWithin Normal LimitsNormalWithin Normal Limits The [facility] Hospital ToledoComment on above:Performed By: #### INFLUAB #### [facility] [address] [place] [address] Dr. Hu Mcpherson AUTO DIFFon 92-23-6715SPBK #0.0 103/ulNormal0.0-0.1[facility] HospitalComment on above:Performed By: #### CBC #### [facility] [address] [place] [address] Dr. Hu CanBasophils/100 WBC (Bld)0.3 %Normal0.2-2.0[facility] Comment on above:Performed By: #### CBC #### [facility] [address] [place] [address] Dr. Hu Marie #0.1 103/ulNormal0.0-0.7The [facility] Hospital ToledoCommunson medical center on above: Performed By: #### CBC #### [facility] [address] [place] [address] Dr. Hu Raeosinophils/100 WBC (Bld)1.1 %Normal0.9-7.0[facility] Comment on above:Performed By: #### CBC #### [facility] [address] [place] [address] Dr. Hu Raerythrocyte distribution width (RBC) [Ratio]13.7 %Rntjjm53.0-15.0 The [facility] Hospital ToledoComment on above:Performed By: #### CBC #### [facility] [address] [place] [address] Dr. Hu CanHematocrit (Bld) [Volume fraction]44.6 %Mxrwsp29.0-48.0The [facility] Hospital ToledoComment on above:Performed By: #### CBC #### [facility] [address] [place] [address] Dr. Hu CanHemoglobin (Bld) [Mass/Vol]14.5 g/zVFmkcys59.0-16.0The [facility] Hospital ToledoComment on above:Performed By: #### CBC #### [facility] [address] [place] [address] Dr. Hu Tompkins #0.02 10e3/ulNormal0.00-0.03The [facility] Hospital ToledoCommunson medical center on above:Performed By: #### CBC #### [facility] [address] [place] [address] Dr. Hu Tompkins %0.3 %Normal0.0-0.5The [facility] Hospital ToledoCommunson medical center on above: Performed By: #### CBC #### [facility] [address] [place] [address] Dr. Hu BurnsH #2.3 103/ulNormal1.2-3.8The [facility] Hospital ToledoComment on above:Performed By: #### CBC #### [facility] [address] [place] [address] Dr. Hu Ayalamphocytes/100 WBC (Bld)30.5 %Cpuhju24.5-60.0The [facility] on above:Performed By: #### CBC #### [facility] [address] [place] [address] Dr. Hu WhiteUAL DIFF REQNONormalThe [facility] Hospital ToledoComment on above: Performed By: #### CBC #### [facility] [address] [place] [address] [address] Hu Roth (RBC) [Entitic mass]29.1 gnZlzggu08.7-34.0The [facility] Hospital ToledoComment on above:Performed By: #### CBC #### [facility] [address] [place] [address] Dr. Hu Roth (RBC) [Mass/Vol]32.5 g/cVSycafv28.9-35.2The [facility]arnham HospitalComment on above:Performed By: #### CBC #### [facility] [address] [place] [address] Dr. Hu Roth (RBC) [Entitic vol]89.6 cQDivszz31.0-99.0The [facility] ToledoComment on above:Performed By: #### CBC #### [facility] [address] [place] [address] Dr. Hu Bejarano #0.5 103/ulNormal0.3-0.8The [facility] Hospital ToledoComment on above:Performed By: #### CBC #### [facility] [address] [place] [address] Dr. Hu Kimocytes/100 WBC (Bld)6.8 %Normal1.7-12.0The [facility] Comment on above:Performed By: #### CBC #### [facility] [address] [place] [address] Dr. Hu SinghUT #4.6 103/ulNormal1.4-6.5The [facility] ToledoComment on above:Performed By: #### CBC #### [facility] [address] [place] [address] Dr. Hu Singhutrophils/100 WBC (Bld)61.0 %Gnmeiv61.0-75.0The [facility] ToledoComment on above:Performed By: #### CBC #### [facility] [address] [place] [address] Dr. Hu Lirianolet mean volume (Bld) [Entitic vol]9.3 fLCritically low 9.5-13.5The [facility] on above:Performed By: #### CBC #### [facility] [address] [place] [address] Dr. Hu CanPLT296 103/utQrskmz391-243Jel [facility] ToledoCommunson medical center on above: Performed By: #### CBC #### [facility] [address] [place] [address] Dr. Hu CanRBC4.98 106/ulNormal4.20-5.40The [facility] ToledoComment on above:Performed By: #### CBC #### [facility] [address] [place] [address] Dr. Hu CanWBC7.5 103/ulNormal4.0-11.0The [facility] on above: Performed By: #### CBC #### [facility] [address] [place] [address] Dr. Hu CanGLYCOHEMOGLOBIN A1Con 83-37-0774VOR RECOMMENDATIONSEE BELOWMercy Health St. Rita'S Medical CenterCommunson medical center on above:Result Comment: ADA RECOMMENDED LIMIT 4.0 - 6.0 ADA THERAPEUTIC TARGET < 7.0 ACTION SUGGESTED > 7.0Performed By: #### A1C #### [facility] [address] [place] [address] Dr. Hu CanGlucose [Mass/Vol]114 mg/dLNoUniversity Hospitals Portage Medical Center on above:Performed By: #### A1C #### [facility] [address] [place] [address] Dr. Hu CanHbA1c (Bld) [Mass fraction]5.6 %Normal4.5-6.2The [facility] on above:Performed By: #### A1C #### [facility] [address] [place] [address] Dr. Hu CanLIPID PROFILEon 18-73-7972RLYT-HDL RATIO NORMSEE [facility] on above:Result Comment: 3.3 - 4.4 LOW RISK 4.4 - 7.1 AVERAGE RISK 7.1 - 11.0 MODERATE RISK >11.0 HIGH RISKPerformed By: #### TSH, CMP, LIPID ####[facility] [address] [place] [id number]. Yilan ChangCholesterol [Mass/Vol]279 mg/dLCritically high<=200The [facility] Rehabilitation Hospitalment on above:Performed By: #### TSH, CMP, LIPID ####[facility] [address] [place] [id number]. Yilan ChangCholesterol in HDL [Mass/Vol]50 mg/sVGypytx96-95IhjOhiohealth Grove City Methodist Hospital Comment on above:Performed By: #### TSH, CMP, LIPID ####[facility] [address] [place] [address]Dr. Yilan ChangCholesterol in LDL [Mass/Vol]197.8 mg/dLMetroHealth Main Campus Medical CenterComment on above:Performed By: #### TSH, CMP, LIPID ####[facility] [address] [place] [address]Dr. Yilan ChangCholesterol.total/Cholesterol in HDL [Mass ratio]5.6 {ratio}NormalThe [facility] Hospital ToledoCommunson medical center on above:Performed By: #### TSH, CMP, LIPID ####[facility] [address] [place] [phone]. Yilan ChangHDL NORMAL> or = 60 mg/dl - LOW CARDIOVASCULAR RISK <40 mg/dl - HIGH CARDIOVASCULAR RISKMetroHealth Main Campus Medical CenterComment on above:Performed By: #### TSH, CMP, LIPID ####[facility] [address] [place] [address]Dr. Yilan ChangLDL CALC NORMALSEE BELOWMetroHealth Main Campus Medical CenterComment on above:Result Comment: <100 mg/dl OPTIMAL 100 - 129 mg/dl NEAR OR ABOVE OPTIMAL 130 - 159 mg/dl BORDERLINE HIGH 160 - 189 mg/dl HIGH >190 mg/dl VERY HIGHPerformed By: #### TSH, CMP, LIPID ####[facility] Ti[address]fex[address] [address]Dr. Yilan ChangTriglyceride [Mass/Vol]156 mg/dLCritically high<=150The [facility] Hospitalment on above:Performed By: #### TSH, CMP, LIPID ####[facility] Zp[address] [place] [address]Dr. Yilan ChangVLDL CALC31.2 mg/dLNormalThe [facility]edoComment on above: Performed By: #### TSH, CMP, LIPID ####[facility] Z[address]kwfomqn[address] [place] [address]Dr. Yilan ChangPROF 14(COMP METB)on 12-13-2021 Albumin [Mass/Vol]3.8 g/dLNormal3.4-5.0The [facility]edoComment on above: Performed By: #### TSH, CMP, LIPID ####[facility] Dktob[address]ys[address] [address]Dr. Yilan ChangAlbumin/Globulin [Mass ratio]1.2 {ratio}NormalThe [facility] ToledoComment on above:Performed By: #### TSH, CMP, LIPID ####[facility] Cq[address] [address]Dr. Yilan ChangALP [Catalytic activity/Vol]74 U/ZWrjtne12-749Hfy [facility] on above:Performed By: #### TSH, CMP, LIPID ####[facility] Y[address] [place] [address]Dr. Yilan ChangALT [Catalytic activity/Vol]19 U/QSuimib66-45Goy [facility] Hospitalment on above: Performed By: #### TSH, CMP, LIPID ####[facility] R[address]xlhxtmc[address] [place] [address]Dr. Yilan ChangAnion gap [Moles/Vol]11.0 mmol/L NormalThe [facility] ToledoComment on above:Performed By: #### TSH, CMP, LIPID ####[facility] [address] [place], [place] [address]Dr. Yilan ChangAST [Catalytic activity/Vol]12 U/LCritically bbg68-70Qpb [facility] Hospitalment on above:Performed By: #### TSH, CMP, LIPID ####[facility] [address] [place], [place] [address]Dr. Yilan Can Bilirubin [Mass/Vol]0.7 mg/dLNormal0.2-1.0The [facility] ToledoComment on above: Performed By: #### TSH, CMP, LIPID ####[facility] [address]hr[address] [place] [address]Dr. Yilan ChangCalcium [Mass/Vol]8.7 mg/dLNormal 8.5-10.1The [facility] ToledoComment on above:Performed By: #### TSH, CMP, LIPID ####[facility] P[address]jjkoh[address] [address]Dr. Yilan ChangChloride [Moles/Vol]102 mmol/YCnecvp13-488Sgl [facility] Comment on above:Performed By: #### TSH, CMP, LIPID ####[facility] Kdryxfyrjx[address] [place], [place] [address]Dr. Yilan ChangCO2 [Moles/Vol]28.2 mmol/JDmdpgb74.0-32.0The [facility] ToledoComment on above: Performed By: #### TSH, CMP, LIPID ####[facility] [address] [place], [place] [address]Dr. Yilan ChangCreatinine [Mass/Vol]0.91 mg/dL Normal0.55-1.02The [facility] Hospitalment on above:Performed By: #### TSH, CMP, LIPID ####[facility] [address]um[address] [address]Dr. Yilan ChangEGFR-AF HUNGARIAN>60Normal>=60The [facility] ToledoComment on above:Performed By: #### TSH, CMP, LIPID ####[facility] Njiosytyuc[address] [place], [place] [address]Dr. Yilan ChangEGFR-NON AF HUNGARIAN>60Normal >=60The [facility] on above:Performed By: #### TSH, CMP, LIPID ####[facility] Idastafwcp[address] [place], [place] [address]Dr. Yilan ChangGlobulin (S) [Mass/Vol]3.3 g/dLNormalThe [facility] ToledoComment on above:Performed By: #### TSH, CMP, LIPID ####[facility] [address]wdzj[address] [place] [address]Dr. Yilan ChangGlucose [Mass/Vol]105 mg/dL Zxaysx94-672Dtw [facility] ToledoComment on above:Performed By: #### TSH, CMP, LIPID ####[facility] [address]cgtv[address] [address]Dr. Yilan ChangPotassium [Moles/Vol]4.2 mmol/LNormal3.5-5.1The [facility] ToledoComment on above:Performed By: #### TSH, CMP, LIPID ####[facility] Oevaygklaw[address] [place], [place] [address]Dr. Yilan Can Protein [Mass/Vol]7.1 g/dLNormal6.4-8.2The [facility] ToledoComment on above: Performed By: #### TSH, CMP, LIPID ####[facility] [address]sw[address] [place], [place] [address]Dr. Yilan ChangSodium [Moles/Vol]137 mmol/LNormal 136-145The [facility] ToledoComment on above:Performed By: #### TSH, CMP, LIPID ####[facility] J[address]ysp[address]hk[address] [place], [place] [address]Dr. Yilan ChangUrea nitrogen [Mass/Vol]23.0 mg/dLCritically high7.0-18.0The [facility] ToledoComment on above:Performed By: #### TSH, CMP, LIPID ####[facility] [address] [place], [place] [address]Dr. Yilan ChangUrea nitrogen/Creatinine [Mass ratio]25.3 mg/mgNormalThe [facility] ToledoComment on above:Performed By: #### TSH, CMP, LIPID ####[facility] [address] [place], [place] [address]Dr. Yilan ChangTSHon 75-19-7255AKV6.249 uIU/mLNormal0.358-3.740The [facility] ToledoComment on above:Performed By: #### TSH, CMP, LIPID ####[facility] [address] [place], [place] [address]Db. Yilan ChangXR CSPINE MIN 4 VIEWSon 58-36-1601JZ CSPINE MIN 4 VIEWS EXAMINATION: XR CSPINE [...] Electronically authenticated by: AL CAMPOS Date: 2021-12-07 19:38Met[facility] Campus Medical CenterMG MAMM SCREEN 3D HIEU CADon 11-57-5034KE MAMM SCREEN 3D HIEU CAD Patient: THERESA REYES Exam Date: 10/28/2021 : 1970 Gender:F Ordering : DR GABBY DEE . Admission #: [id number] Family : Order #: [id number] CLICK HERE TO VIEW EXAM RADIOLOGY REPORT [...] ovarian cancer at age 80. LOCATION: The [facility] BREAST COMPOSITION: Scattered areas fibroglandular density. FINDINGS: [...] by: Kan Salas M.D. on 10/28/2021 at 12:02NoHolzer Medical Center – JacksonCovid-19 PCR (CVDTB)on 66-56-3244TBNI-CoV-2 (COVID-19) RNA CLARISSA+probe Ql (Unsp spec)Not detectedNormalNOT DETECTEDThe [facility] on above: Result Comment: When diagnostic testing [...] for this test is supported by the [place] of Health and Human Service's declaration that circumstances exist to justify the emergency use of in vitro diagnostics for the detection and/or diagnosis of the virus that causes COVID-19. This EUA will remain in effect for the duration of the COVID-19 declaration justifying emergency of IVDs, unless it is terminated or revoked by the FDA (after which the test may no longer be used).Performed By: #### CVDTB #### [facility] [address] [place] [address] Dr. Hu CanCovid-19 PCR (CVDTB)on 06-41-5957WFDI-CoV-2 (COVID-19) RNA CLARISSA+probe Ql (Unsp spec)DetectedCritically abnormalNOT DETECTEDThe [facility] on above:Result Comment: This test is not yet approved or cleared by the [place] FDA. When there are no FDA-approved or cleared tests available, and other criteria are met, FDA can make tests available under an emergency access mechanism called an Emergency Use Authorization (EUA). The EUA for this test is supported by the [place] Signal Officer of Health and Human Service's declaration that circumstances exist to justify the emergency use of in vitro diagnostics for the detection and/or diagnosis of the virusthat causes COVID-19. This EUA will remain in effect for the duration of the COVID-19 declaration ju stifying emergency of IVDs, unless it is terminated or revoked by the FDA (after which the test mayno longer be used).Performed By: #### CVDTBH ####[facility] [address] [place], [place] [address]QsAusten Can Pathology Noteon 36-30-8607Mzqjkwhys Note [id number]#1.00CD:[address] [place] [address] Vital Signs Date TimeVital SignValuePerforming DhjtudzrnXvezrqhq02-58-7283 15:39-0400Body ieaoja238.2 cmCorey Kinga DO Work Phone: NOFitzgibbon HospitalQhfguyoguk58-41-6650 15:39-0400Body mass index (BMI) [Ratio]30.23 kg/p4Uybhx Kinga DO Work Phone: noFitzgibbon HospitalUcowmdtcby35-97-3222 15:39-0400Body nbsyzz22.54 kgCorey Kinga DO Work Phone: Walk ScoreFitzgibbon HospitalMgdzvnhkdm80-94-6051 15:39-0400Diastolic blood cadjqmxu80 mm[Hg]Dru Kinga DO Work Phone: noAZ Fxddtblufj23-10-5111 15:39-0400Systolic blood waiznmfb167 mm[Hg]Dru Kinga DO Work Phone: Walk ScoreFitzgibbon HospitalPaixwzngbx10-12-2351 09:30-0400Body .18 [facility] CityTRiQ Other [employer] Other 06-20-2023 09:30-0400Body mass index (BMI) [Ratio] 30.85 kg/j9AgitzofGeekStatus Other [employer] Other 06-20-2023 09:30-0400Body lxteaf33.36 kgCoTRiQ Other [employer] Other 01-24-2023 15:14-0500Blood Pressure LocationMichael NILL General Surgery Gpjhacwt01-33-4228 15:14-0500Diastolic blood mm[Hg]Morris NILL General Surgery Wgqkuber11-79-3101 15:14-0500Heart rate 72 /minMichael NILL General Surgery Qeprzmku76-81-9958 15:14-0500 Respiratory rate16 /minMichael NILL General Surgery Yhplvrgx69-37-6135 15:14-0500Systolic blood hlvosqfw219 mm[Hg]Morris NILL General Surgery Diamond Encounters Encounter DateEncounter TypeCare ProviderFacilityStart: 01-03-2025 End: 75-83-7480Lqlpav flowsheetCorey Kinga DO Work Phone: [facility] [place] [facility]BGYNStart: 01-03-2025 End: 49-15-5902Bsqsqs flowsheetCorey Kinga DO Work Phone: noms Diamond OBGYNStart: 12-14-2024 End: 72-73-3732zndhipkoqvTNSVXTYEEIJ [facility] Start: 02-15-2024 End: 14-13-1115Vllo/qhp telephone evaluation 5-10 minCorey Kinga DO Work Phone: noms BCP OBComment on above:Osteopenia, unspecified locationStart: 12-29-2023 End: 82-64-1998uzjnprtgcsXACOP FAZIONot AvailableStart: 12-29-2023 End: 75-28-5009Blhzbbn encounter procedureCorey Kinga DO Work Phone: NORM HealthcareStart: 12-29-2023 End: 65-06-2664Ltokcubo preventive med est patient 40-64yrsCorey Kinga DO Work Phone: noms BCP OBComment on above:Postmenopausal state; Well woman exam with routine gynecological examStart: 12-29-2023 End: 33-01-6443Zgxzna flowsheetCorey Kinga DO Work Phone: noms BCP OBStart: 12-29-2023 End: 34-96-5720Adgnjc flowsheetCorey Kinga DO Work Phone: noms BCP OBStart: 12-29-2023 End: 99-58-6372Ygqflwdne Result EncounterCorey Kinga DO Work Phone: noms External Department UnsolicitedStart: 01-02-2023 End: 47-60-4929hwmdtogreiTuouuht Calvey Other [employer] Other Start: 97-67-6577Fpjysr outpatient visit 15 minutes Diamond CalveyFPG [facility] OrthopedicsStart: 09-23-2022 End: 87-77-4911ypbrtlszjvHurovfz Calvey Other [employer] Other Start: 24-39-8253Clmojk outpatient visit 15 minutes Diamond CalveyFPG [facility] OrthopedicsStart: 09-02-2022 End: 87-08-8097ecmqeizrukGkqrnsf Calvey Other [employer] Other Start: 54-27-8004Efyzji outpatient visit 15 minutes Diamond CalveyFPG [facility] OrthopedicsStart: 07-08-2022 End: 67-69-4270sjkwsywunuSzstzti Calvey Other [employer] Other Start: 24-60-8306Nymxin outpatient visit 15 minutes Diamond CalveyFPG [facility] OrthopedicsStart: 06-01-8057Fzuevb outpatient visit 15 minutesColleen CalveyFPG [facility] OrthopedicsStart: 06-03-2022 End: 73-17-7439ywlvwqinbmXbuzjht R CalveyFacility:[facility]burgtart: 06-03-2022 End: 09-43-4439leevhsxzwtZK Diamond Calvey Work Phone: [facility] Work Phone: Start: 06-03-2022 End: 68-96-1163Bxvgutc encounter procedureMD Diamond Case Work Phone: [facility]-XRs[facility] Start: 05-16-2022 End: 62-06-9751tkyqtxqqggHR GABBY HOY .Facility:Y3Suwav: 05-14-2022 End: 76-47-1142kxsqptmxhpHM GABBY HOY .Facility:R7Rzmvb: 05-07-2022 End: 44-48-9375nogpogehkdVvpogbi R NILLFacility:CD:[id number]: 05-06-2022 End: 60-78-4937vabjtllijqLbnvojx Evie Other [employer] Other Start: 72-92-7991Qrulit outpatient new 30 minutes Diamond CaseFPG Glenda OrthopedicsStart: 04-08-2022 End: 06-48-1796jqvgwspmegZqghdqc R NILLFacility: [facility]vueStart: 04-08-2022 End: 93-08-7472Tlezncw encounter procedureMichael R NILL General Surgery Nill/Said [place] Start: 31-40-6535bzkzpqztjnWI GABBY HOY .Facility:H1 Start: 02-26-2022 End: 06-15-8740ufuftlmuleGY GABBY HOY .Facility:Z9Gghpd: 01-01-2022 End: 17-66-1624aefpzamrgrAC GABBY HOY .Facility:G7Mzezd: 14-36-3310Pyvvwpbyp for general adult medical examination without abnormal findingsDR GABBY HOY . [facility]Start: 12-13-2021 End: 76-03-7089uocrxziwsbWE GABBY HOY .Facility:K4Lmoal: 12-13-2021 End: 70-34-9734Tyunlbzab for general adult medical examination without abnormal findingsDR GABBY HOY .Facility:R2Gtezk: 12-07-2021 End: 31-03-1237ahzjhpkngnOV GABBY HOY .Facility:G6Rsjta: 10-28-2021 End: 02-46-5974ubtgflpvxdFG GABBY HOY .Facility:Y3Ogfif: 10-12-2021 End: 66-66-5299kwvrdhkxliFUDAIJVS EBERLYFacility:Q8Lcqxm: 10-07-2021 End: 81-91-6138ejniofaxtdONUYXOKB EBERLYFacility:H1 Procedures DateProcedureProcedure DetailPerforming ClinicianStart: 46-19-8231ZSJ,APTIMA HPV,AGE GDLNCorey Kinga DO Work Phone: Start: 39-89-7596Qfwhdkndigc observation [Identifier] in Cervix by Cyto stainCorey Kinga DO Work Phone: Start: 92-47-3181YntascbwamdAxmdv Kinga DO Work Phone: Start: 76-51-9430Gkhws X-ray of left handMD Diamond Case Work Phone: Start: 20-20-0213Faumuorehgg observation [Identifier] in Cervix by Cyto stainCorey Kinga DO Work Phone: Start: 07-98-7835MjywfpzisucQcaps Kinga DO Work Phone: Start: 50-52-7200SmphldsjwivJgxftjg NILL Complete obstruction of lacrimal canaliculus (disorder) Morris NILL Fasciotomy of footMichael NILL Comment on above:bilateralGanglion cyst of right foot Morris NILL Plan of Treatment DateCare ActivityDetailAuthorStart: 91-56-7846Cxtxsqzoq for malignant neoplasm of colonNOMS HealthcareStart: 63-20-4496Vlcxdfrpg for malignant neoplasm of cervixPap SmearNOMS HealthcareStart: 67-69-7901Vkgcwtnsz for malignant neoplasm of cervixNOMS HealthcareStart: 01-03-2025 End: 33-72-4392Mypctmv encounter vjnncurhs35/21/2025 9:00 AM EDT Office Visit [facility] [address] [id number] Dru Donato, DO [address] [place] [address] [facility] OBStart: 77-81-4543Zrnxgydem for malignant neoplasm of breastMammogramNOMS HealthcareStart: 12-29-2023 End: 10-10-7902RFG Skeletal system Views for bone densityDEXA bone density Imaging Routine Postmenopausal state Expected: 12/29/2023 (Approximate), Expires:12/28/2024NOAZ Healthcare Work Phone: comment on above:Expected: 12/29/2023 (Approximate), Expires: 12/28/2024Start: 59-59-4513Rvncoilxh vaccinationInfluenza Vaccine (#1) [facility] HospitalStart: 32-91-6500Wtzrnnhub for malignant neoplasm of colonNOMS HealthcareTHIN PREP TIS PAP AND HR HPV DNATHIN PREP TIS PAP AND HR HPV DNA Pathology and Cytology Routine Well woman exam with routine gynecological exam Ordered: 12/29/2023NOAZ HealthcareComment on above:Ordered: 12/29/2023 Immunizations Immunization DateImmunizationNotesCare LowxtrvxXzvijqro70-87-7369lldugppqg virus vaccine, unspecified formulationMichael NILL General Surgery Onwmczzv78-55-6217gqflevswo virus vaccine, unspecified formulationDru Donato DO Work Phone: [facility]Pointe HospitalOifruvkwpb78-99-0852CHWF-OkL-6 (COVID-19) Ad26 vaccine, recombinantMichael NILL General Surgery Vmmfkvnm40-53-8167JYNG-SuB-3 (COVID-19) Ad26 vaccine, recombinantMichael NILL General Surgery [place] Payers DatePayer CategoryPayerPolicy [id number] Cross Blue ShieldBCBS Member Subscriber Plan / Payer (Effective 2022-Present) Name: Theresa Reyes Member ID: [id number] Relation to Subscriber: Self Name: Theresa Reyes Subscriber ID: [id number] Payer ID: Not on file Type: Not on file Address: [address] [id number] [id number] 2..1.536566.3.579.[id number] 2..1.397785.3.579.2.82250-89-6639Wmshmjz3065686 2..1.856264.3.579.2.64275-90-0321Kianjle1111482 2..1.538604.3.579.2.07612-95-8588Oslxjzh6177949 2..1.618653.3.579.2.11204-52-4360Yndcgct0781520 2..1.800720.3.579.2.78824-15-7725Geuuoji4918836 2..1.677307.3.579.2.69745-07-2532Mdqegmh9625562 2..1.022554.3.57[id number] 2.16.840.1.894401.3.579.2.08271-02-8133Laiplgj4190068 2.16.840.1.996505.3.579.2.50235-46-0294Oqejbpu6348133 2.16.840.1.507797.3.579.2.74686-91-9425Rfxgucu0308543 2..840.1.881441.3.579.2.19741-11-1040Wzwxhyv8549062 2.16.840.1.210861.3.579.2.44324-69-3794Wyafsjq4906888 2.16.840.1.101121.3.579.2.295324-41-6258Mopv-[id number] 2.16.840.1.050171.3.579.2.531 Social History DateTypeDetailFacilityStart: 04-08-2022 End: 75-28-8184Artetxr smoking statusNever smoked tobacco (finding)General Surgery [facility]vueStart: 32-55-1364Hfmytki smoking statusNeverGeneral Surgery BellevueStart: 12-23-2022 End: 98-82-6884Mng Assigned At [facility] CenterStart: 99-96-0436Kzo Assigned At [facility] CenterStart: 12-23-2022 End: 79-77-0786Fduveswqg beverage intakeCurrent drinker of alcohol (finding)[facility] HealthcareStart: 12-23-2022 End: 99-35-0019Qabpyfg of Social functionNOMS HealthcareStart: 98-96-7466Gscwefd CommentAlcohol: 1 or 2 drinks on a typical day/monthly or less Caffeine: 2-3 cups/dayNOMS HealthcareStart: 26-97-0641Zaicwi identityIdentifies as female gender (finding)[facility] Functional Status HiklTjxkwccolzXeiqckKcmkqijd37-87-5335Njhmpboana StatusN/AGeneral Surgery [place] Clinical Notes 12-07-2021 to 12-14-2024 Note Date & LmusChrwNiicxunw80-50-1169 NoteSubjective Patient ID: Theresa Reyes is a 54 y.o. female who presents for New Patient (Patient is here today to establish care with cardiology for SVT and VT oh holter monitor. Patient recently had Echo, stress test, Labs, Holter monitor. Patient complains of chest tightness, SOB, SOTELO, dizziness/lightheaded with position changes, fatigue, Patient states she doesnt feel like she sleep well at night,patient does snore. Patient states her blood pressure in the office its been 140 to 150.), Hyperlipidemia, SVT (On holter monitor), Ventricular tachycardia (On holter monitor), and Palpitations. Had physical at Dr. Dee's office and had high HR and irregular heart beats on apple watch. Happened again recently. HR was 163 at night. Holter monitor strips reviewed by me: non sustained 4-5 beat runs of SVT about 210 bpm, some wide complex 12/12 normal echo normal LV and valve function and normal stress nuclear scan and EKG at good workload I feel exhausted Has asthma, can be hard to catch a deep breath. Seasonal (crops off) Can be sitting and heart is racing. Had an inhaler, does not use one now. 12/04 had multiple alarms on Apple watch of afib (irregular RR) at 1 am Hyperlipidemia Associated symptoms include shortness of breath. Pertinent negatives include no chest pain. Palpitations Associated symptoms include coughing, dizziness and shortness of breath. Pertinent negatives include no chest pain. TSH normal, baseline LDL 196 before taking rosuvastatin Review of Systems Constitutional: Morning hand swelling Hips and knees hurt Hard to get moving in the morning stiffness Respiratory: Positive for cough, chest tightness, shortness of breath and wheezing. Cardiovascular: Positive for palpitations. Negative for chest pain. Gastrointestinal: Negative for blood in stool. Genitourinary: Negative for hematuria. Neurological: Positive for dizziness. Negative for syncope. Orthostatic dizziness Objective Visit Vitals BP 118/77 (BP Location: Left arm, Patient Position: Sitting) Pulse 82 Physical Exam Constitutional: Appearance: Normal appearance. She is normal weight. HENT: Head: Normocephalic and atraumatic. Cardiovascular: Rate and Rhythm: Normal rate and regular rhythm. No extrasystoles are present. Pulses: Carotid pulses are 2+ on the right side and 2+ on the left side. Radial pulses are 2+ on the right side and 2+ on the left side. Dorsalis pedis pulses are 2+ on the right side and 2+ on the left side. Posterior tibial pulses are 2+ on the right side and 2+ on the left side. Heart sounds: Normal heart sounds. Heart sounds not distant. No murmur heard. No friction rub. No gallop. Pulmonary: Effort: Pulmonary effort is normal. Breath sounds: Normal breath sounds. No wheezing or rales. Musculoskeletal: Right lower leg: No edema. Left lower leg: No edema. Skin: General: Skin is warm and dry. Neurological: General: No focal deficit present. Mental Status: She is alert and oriented to person, place, and time. Mental status is at baseline. Psychiatric: Mood and Affect: Mood normal. Behavior: Behavior normal. Thought Content: Thought content normal. Judgment: Judgment normal. Assessment/Plan Multiple episodes of what appears to be non-sustained SVT of rate approximately 210 bpm. Of note, the R-R interval of narrow and wider complex episodes are similar suggesting that these are the same arrythmia with possible aberrant conduction at times. Fortunately heart is structurally normal and no evidence for ischemia. Suggest 30-day event monitor to better document arrythmia and if this isn't clear, consider implanted loop recorder. Mg is a little low and can try OTC replacement to see if this improves Diagnosis Plan 1. Paroxysmal supraventricular tachycardia No orders of the defined types were placed in this encounter. No results found for this or any previous visit (from the past 36 hours). Follow up in about 6 weeks (around 01/25/2025).[facility]12-02[facility] History of Present illness Narrative* Matilda Liang LPN - 02/15/2024 8:10 AM EST Reason for Appointment: Patient ID: Theresa Reyes is a 53 y.o. female who presents for Results (TeleHealth appointment for DEXA Scan results) Patient presents today via telephone call for a telehealth appointment. Patients Phone #: [phone] (mobile) Current Medications: currently has no medications in their medication list. Medical History: Active Ambulatory Problems Diagnosis Date Noted No Active Ambulatory Problems Resolved Ambulatory Problems Diagnosis Date Noted No Resolved Ambulatory Problems Past Medical History: Diagnosis Date Arthralgia Asthma ([facility]) Headache Hypercholesterolemia ([facility]) Visit for screening mammogram 2016 Family History [...] of: Dru Donato DO documented in this encounterCenterPointe HospitalTabeqgvisd25-99-5121 History of Present illness Narrative* Ariana Mathew LPN - 12/29/2023 3:00 PM EDT Reason for Appointment: Patient ID: Theresa Reyes is a 53 y.o. female who presents for too.me Women Visit Patient presents today for Annual Exam. MEDICATIONS No current outpatient medications ALLERGIES No Known Allergies PROBLEMS Active Ambulatory Problems Diagnosis Date Noted No Active Ambulatory Problems Resolved Ambulatory Problems Diagnosis Date Noted No Resolved Ambulatory Problems Past Medical History: Diagnosis Date Arthralgia Asthma ([facility]) Headache Hypercholesterolemia ([facility]) Visit for screening mammogram 2017 HISTORY PAST MEDICAL HISTORY SOCIAL HISTORY Past Medical History: Diagnosis Date Arthralgia Asthma ([facility]) Headache Hypercholesterolemia ([facility]) Visit for screening mammogram 2017 [...] nursing note reviewed. Exam conducted with a broom man present. Vitals: Estimated body mass index is [...] of: Dru Donato DO documented in this encounterCenterPointe HospitalXhyrjolewy94-25-8176 Evaluation note* Encounter Date Diagnosis Assessment Notes Treatment Notes Treatment Clinical Notes Dec, Trigger finger, right middle fin alejandra (ICD-10 - M65.331) Dec,rthritis of carpometacarpal (CMC) joint of right thumb (ICD-10 - M18.11) We performed a cortisone injection into the CMC joint under sterile technique. The patient tolerated this well without complication. We discussed that the finger may feel numb and tingle for hours after this injection. Patient did mention the possibility of surgical intervention sometime in April 2023. 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 The patient tolerated this well without complication. We discussed that the finger may feel numb and tingle for hours after this injection. Dec,Right lateral epicondylitis (ICD-10 - M77.11) This appears to be medial epicondylitis (golfers elbow). We discussed all treatment options including gentle stretching and strength exercise as pain allows, use of non-steroidal anti-inflammatory medication, formal physical therapy as well as cortisone injection and surgical release. [facility] Other 07-11-2023 Evaluation note* Encounter Date Diagnosis Assessment Notes Treatment Notes Treatment Clinical Notes Sep, Trigger finger, right middle fin alejandra (ICD-10 - M65.331) Sep,rthritis of carpometacarpal (CMC) joint of right thumb (ICD-10 - M18.11) Sep,rimary osteoarthritis of first carpometacarpal joint of left hand (ICD-10 - M18.12)Left thumb CMC joint injected with cortisone under sterile technique, patient tolerated well. Surgical options discussed with patient, CMC fusion discussed. She will contact office when ready Sep,Left hand pain (ICD-10 - M79.642) [facility] Other 06-20-2023 Evaluation note* Encounter Date Diagnosis Assessment Notes Treatment Notes Treatment Clinical Notes Aug, Trigger finger, right middle fin alejandra (ICD-10 - M65.331) Aug,rthritis of carpometacarpal (CMC) joint of right thumb (ICD-10 - M18.11)We performed a cortisone injection into the CMC joint under sterile technique. The patient tolerated this well without complication. We discussed that the finger may feel numb and tingle for hours after this injection. Aug,Right hand pain (ICD-10 - M79.641) Aug,Left hand pain (ICD-10 - M79.642) Aug,rimary osteoarthritis of first carpometacarpal joint of left hand (ICD-10 - M18.12) [facility] Other 2023 Evaluation note* Encounter Date Diagnosis Assessment Notes Treatment Notes Treatment Clinical Notes Jun, Trigger finger, right middle fin alejandra (ICD-10 - M65.331) Jun,rthritis of carpometacarpal (CMC) joint of right thumb (ICD-10 - M18.11)Discussed with patient to continue to use voltaren gel and brace to help with the pain. Discussed with patient to call if she would like a repeat cortisone injection Jun, 2022Right hand pain (ICD-10 - M79.641) Jun,Left hand pain (ICD-10 - M79.642) Jun, rimary osteoarthritis of first carpometacarpal joint of left hand (ICD-10 - M18.12) [facility] Other 03-21-2023 Evaluation note* Encounter Date Diagnosis Assessment Notes Treatment Notes Treatment Clinical Notes May, Trigger finger, right middle fin alejandra (ICD-10 - M65.331) May,rthritis of carpometacarpal (CMC) joint of right thumb (ICD-10 - M18.11) May,Right hand pain (ICD-10 - M79.641) May,Left hand pain (ICD-10 - M79.642) May,rimary osteoarthritis of first carpometacarpal joint of left hand (ICD-10 - M18.12)The patient is suffering from degenerative arthritis involving the thumb CMC joint. We discussed the conservative treatment options which can be beneficial in relieving pain, including hand occupational therapy, wearing a brace, and non-steroidal anti-inflammatory medication. We discussed the use of occasional cortisone injections that can provide pain relief. , We performed a cortisone injectioninto the CMC joint under sterile technique. The patient tolerated this well without complication. We discussed that the finger may feel numb and tingle for hours after this injection. [facility] Other 03-04-2023 NotePROCEDURE: XR FOOT RT MIN [...] Electronically authenticated by: AL CAMPOS Date: 2022-05-17 12:06[facility]02[facility]23 NoteOPERATIVE NOTE OPERATION DATE: 05/07/2022 PREOPERATIVE [...] in good condition. CC: Gabby Dee M.D.[id number] NoteOPERATIVE NOTE OPERATION DATE: 05/07/2022 ADDENDUM: The distal rectal 4 mm irregular flat polyp was removed with hot snare with good hemostasis, not with cold biopsy forceps.[facility] 05-06-2022 Evaluation note* Encounter Date Diagnosis Assessment Notes Treatment Notes Treatment Clinical Notes Apr, Trigger finger, right middle fin alejandra (ICD-10 - M65.331) This appears to trigger finger. We discussed the cause of this condition and the treatment options.We discussed stretching of the finger as well as massage of the palmar MCP region. We discussed theuse of cortisone injection into the palmar aspect of the hand at the trigger site can be helpful inrelieving painful symptoms. We also discussed the option of surgical release which can eliminate the problem. We performed a cortisone injection into the palmar aspect of the right middle finger nearat the A1 theresa under sterile technique. The patient tolerated this well without complication. We discussed that the finger may feel numb and tingle for hours after this injection. Patient also instructed on the use of Lidocaine Patches and Voltaren Gel Apr,rthritis of carpometacarpal (CMC) joint of right thumb (ICD-10 - M18.11)Non surgical options discussed to include topical and oral NSAIDs, use of heat and ice, bracing, hand therapy, use of lidocaine patches, use of turmeric/curcumin and Glucosamine/Chondroitin, and oraland injectable steroids. Surgical options discussed to include CMC fusion and trapeziectomy LRTI. Right thumb CMC joint injected with cortisone under sterile technique, patient tolerated well. Patient also instructed on the use of Lidocaine Patches and Voltaren Gel. Occupational therapy/bracing order given Apr,Right hand pain (ICD-10 - M79.641) [facility] Other 09-24-2022 NotePROCEDURE: XR SHOULDER LT 2V or > COMPARISON: None. HISTORY: Impingement syndrome of shoulder region FINDINGS: BONES:No fracture, acute abnormality, or significant arthropathy. SOFT TISSUES:Negative. No visible soft tissue swelling. EFFUSION:None visible. OTHER: Negative. IMPRESSION: No acute disease. Electronically authenticated by: AL CAMPOS Date: 2021-12-07 19:36[facility] No data available for this section General Surgery [place] Evaluation noteNo assessment information available [facility] Work Phone: Evaluation note* Diagnosis Postmenopausal state Asymptomatic postmenopausal status (age-related) (natural) Well woman exam with routine gynecological exam Routine gynecological examination documented in this encounter [facility] HealthcareEvaluation note* Diagnosis Osteopenia, unspecified location documented in this encounter [facility] HealthcareHistory general Narrative - Reported* Type Description Date Medical History high cholesterol Surgical HistoryFoot SurgerySurgical Historyclogged tear duct [facility] Other Hospital Discharge instructions No data available for this section General Surgery [place] Progress note No data available for this section General Surgery [place] Summary Purpose Family History No Family History [...] Dates Diamond Case MD Attending Provider Active Team MemberRelationshipSpecialtyStart DateEnd Date Gabby Dee MD [address] [place] [facility] [place] [address] PCP - [facility]12/23/22Te MemberRelationshipSpecialtyStart Date End Date Gabby Dee MD [address] [place] [address] PCP - [facility]12/23/22Team MemberRelationshipSpecialtyStart Date End Date Gabby Dee MD [address] [place] [address] PCP - [facility]12/23/22Te MemberRelationshipSpecialtyStart Date End Date Gabby Dee MD [address] [place] [address] [facility]Te MemberRelationshipSpecialtyStart Date End Date Gabby Dee [facility] - [facility] INFORMATION SOURCE (unrecogn ized section and content) DATE CREATED AUTHOR 05/16/2022 [facility] DATE CREATED AUTHOR AUTHOR'S ORGANIZ ATION 06/18/2022 [facility] DATE CREATED AUTHOR AUTHOR'S ORGANIZ ATION 06/21/2022 [facility] DATE CREATED AUTHOR AUTHOR'S ORGANIZ ATION 12/31/2023 [facility] DATE CREATED AUTHOR AUTHOR'S ORGANIZ ATION 12/19/2024 [facility] REASON FOR VISIT (unrecogniz ed section and content) ReasonCommentsWell Women VisitReasonCommentsResultsTeleHealth appointment for DEXA Scan results Goals (unrecognized section [...] BE BASED ON THE PRIMARY CLINICAL RECORDS. [employer] provides no warranty or guarantee of the accuracy or completeness of information in this document.
[2025-01-09 15:08] LABS: Age Gdln ACOG Testing Note (.); IGP, Aptima HPV, rfx 16/18,45 Note (.)
== END 2025-01-03 12:10 | disposition home or self-care (01) ==
LOC: LAB 12:09
PROVIDERS: PCP Family Medicine; Visit Provider Obstetrics & Gynecology
DX: Z01.419 Encounter for gynecological examination (general) (routine) without abnormal findings (principal)
CPT/HCPCS: 87624; 88175